=== PATIENT | female | born 1960 | race Caucasian/White ===

== ENCOUNTER 2022-11-19 10:29 | Outpatient (OUT) | payer BC, SELFPAY ==
--- NOTE | 2022-11-19 10:19 | ECG_ITS ---
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
== END 2022-11-19 10:30 ==
PROVIDERS: PCP Family Medicine
DX: Z95.5 Presence of coronary angioplasty implant and graft (principal)
CPT/HCPCS: 93005

== ENCOUNTER 2023-06-03 14:10 | Emergency (ER) | payer BC, SELFPAY ==
[2023-06-03] VITALS (18 sets, daily range): BP systolic 97–137; BP diastolic 67–90; PULSE 86–113; RESP 15–24; O2SAT 95–99; BMI 18.2
--- NOTE | 2023-06-03 14:20 | ECG_ITS ---
The 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
--- NOTE | 2023-06-03 14:32 | ED_ITS ---
Documented by User: RONY Oseguera 06/03/23 18:39 HPI - Chest Pain General Chief Complaint: Chest Pain Stated Complaint: CHEST PAIN Time Seen by Provider: 06/03/23 14:20 Source: patient and family Mode of arrival: walk-in Limitations: no limitations History of Present Illness HPI narrative: Patient is a 62-year-old female referred to this emergency department from her PCP office for chest pain, palpitations for the last several weeks. Patient states she has had intermittent discomfort in the chest although she denies any chest pain at this time. She states she does have symptoms of feeling her heart race. She has not had any fevers or cough or congestion. She has had nausea but no vomiting or abdominal pain. She has a history of coronary artery stents x 5, approximately 5 to 6 years ago. She no longer wants to see [facility] for cardiology and has an upcoming appointment with a physician at the [facility]. She has not had any recent stress test or heart catheterizations. She takes only a baby aspirin daily, she was taken off of anticoagulation after she had intracranial hemorrhage with surgery several years ago. Risk Factors Coronary artery disease risk factors: hypertension Related Data Home Medications Medication Instructions Recorded Confirmed alendronate 70 mg tablet 70 mg PO DAILY 06/03/23 06/03/23 atorvastatin 80 mg tablet 80 mg PO DAILY 06/03/23 06/03/23 cholecalciferol (vitamin D3) 125 125 mcg PO DAILY 06/03/23 06/03/23 mcg (5,000 unit) capsule citalopram 20 mg tablet 20 mg PO DAILY 06/03/23 06/03/23 lisinopril 20 mg tablet 20 mg PO DAILY 06/03/23 06/03/23 metoprolol succinate 25 mg 25 mg PO DAILY 06/03/23 06/03/23 tablet,extended release 24 hr Allergies Allergy/AdvReac Type Severity Reaction Status Date / Time No Known Drug Allergies Allergy Verified 06/03/23 14:47 Review of Systems ROS Constitutional Denies: fever or chills Ears, nose, mouth, and throat Denies: throat pain or nasal congestion Cardiovascular Reports: chest pain and palpitations Respiratory Reports: shortness of breath; Denies: cough Gastrointestinal Reports: nausea; Denies: abdominal pain or vomiting Genitourinary Denies: painful urination Musculoskeletal Denies: back pain Integumentary/Breast Denies: rash Neurological Denies: headache Endocrine Denies: excessive urination Allergic/Immunologic Denies: hives PFSH [facility] Medical History (Updated 06/03/23 @ 18:31 by RONY Oseguera) Brain bleed ?I61.9 - Nontraumatic intracerebral hemorrhage, unspecified (ICD-10) Emphysema lung ?J43.9 - Emphysema, unspecified (ICD-10) Hypertension ?I10 - Essential (primary) hypertension (ICD-10) Surgical History (Updated 06/03/23 @ 14:45 by Gus Escobar) History of heart artery stent ?Z95.5 - Presence of coronary angioplasty implant and graft (ICD-10) Exam Narrative Exam Narrative: Gen.: Awake, alert, in no distress Head: Normocephalic, atraumatic ENT: Moist mucous membranes Respiratory: No respiratory distress, lungs clear bilaterally Cardio: Tachycardia Extremities: Moves extremities equally, no pedal edema Psych: Normal mood and affect Neuro: No focal neuro deficit Skin: Warm, dry, intact Constitutional Vital Signs, click to edit/add: Last Vital Signs Pulse 87 06/03/23 15:52 Resp 22 06/03/23 15:52 BP 137/85 06/03/23 15:30 Pulse Ox 96 06/03/23 15:52 O2 Del Method Room Air 06/03/23 14:28 Course Vital Signs Vital signs: Vital Signs Pulse Oximetry 97 06/03/23 14:22 Pulse Rate 87 06/03/23 15:52 Respiratory Rate 22 06/03/23 15:52 Blood Pressure 137/85 06/03/23 15:30 Pulse Oximetry 96 06/03/23 15:52 Oxygen Delivery Method Room Air 06/03/23 14:28 MDM - Chest Pain MDM Narrative Medical decision making narrative: Lab studies including troponin are within normal limits, patient found to have an elevated D-dimer. She was treated with IV fluids with improvement of her heart rate. She has no complaints of chest pain in the ER. CT angio of the chest shows a small area of scarring in the left lower lung and the patient can follow-up as an outpatient for this, no other acute abnormalities noted. I discussed the case with Dr. Arevalo, he recommended a repeat troponin and the patient be discharged with a Holter monitor. Patient is very comfortable with treatment plan, she does not wish to be admitted. Repeat troponin is normal, Holter monitor placed and the patient is discharged home to follow-up with PCP. Return to the ER if symptoms change or worsen. Medical Records Data Attestation: I reviewed the patient's medical records. Lab Data Attestation: I reviewed the patient's lab results. Labs: Lab Results 06/03/23 06/03/23 Range/Units 14:38 17:48 WBC 7.8 (4.0-11.0) 10^3/uL RBC 4.97 (4.20-5.40) 10^6/uL Hgb 15.7 (12.0-16.0) g/dL Hct 46.9 (36.0-48.0) % MCV 94.4 (81.0-99.0) fL MCH 31.6 (26.7-34.0) pg MCHC 33.5 (29.9-35.2) g/dL RDW 12.4 (11.0-15.0) % Plt Count 150 (150-450) 10^3/uL MPV 11.9 (9.5-13.5) fL Neut % (Auto) 66.6 (43.0-75.0) % Lymph % (Auto) 23.5 (20.5-60.0) % Calloway % (Auto) 8.5 (1.7-12.0) % Eos % (Auto) 0.5 L (0.9-7.0) % Baso % (Auto) 0.5 (0.2-2.0) % Neut # (Auto) 5.2 (1.4-6.5) 10^3/uL Lymph # (Auto) 1.8 (1.2-3.8) 10^3/uL Calloway # (Auto) 0.7 (0.3-0.8) 10^3/uL Eos # (Auto) 0.0 (0.0-0.7) 10^3/uL Baso # (Auto) 0.0 (0.0-0.1) 10^3/uL Abs Immat Gran (auto) 0.03 (0.00-0.03) 10^3/uL Imm/Tot Granulo (auto) 0.4 (0.0-0.5) % PT 10.3 (9.0-11.6) sec INR 0.97 APTT 26.5 (22.3-36.2) sec D-Dimer 0.69 H* (<=0.59) mg/L FEU Sodium 132 L (136-145) mmol/L Potassium 4.5 (3.5-5.1) mmol/L Chloride 100 (98-107) mmol/L Carbon Dioxide 24.6 (21.0-32.0) mmol/L Anion Gap 11.9 BUN 14.0 (7.0-18.0) mg/dL Creatinine 0.89 (0.55-1.02) mg/dL Est GFR ( Amer) >60 (>=60) Est GFR (Non-Af Amer) >60 (>=60) BUN/Creatinine Ratio 15.7 Glucose 97 (74-106) mg/dL Calcium 9.3 (8.5-10.1) mg/dL Total Bilirubin 0.7 (0.2-1.0) mg/dL AST 27 (15-37) U/L ALT 34 (14-59) U/L Alkaline Phosphatase 71 (46-116) U/L Total Creatine Kinase 87 (26-192) U/L CK-MB (CK-2) <0.50 (<=3.60) ng/mL Troponin I High Sens 5.7 7.2 (4.0-51.3) pg/mL NT-Pro-B Natriuret Pep 50.0 (<=900.0) pg/mL Total Protein 7.2 (6.4-8.2) g/dL Albumin 3.5 (3.4-5.0) g/dL Globulin 3.7 g/dL Albumin/Globulin Ratio 0.9 TSH 1.933 (0.358-3.740) uIU/mL Imaging Data CT scan - chest: Attestation: I have reviewed the pertinent imaging results. Radiologist's impression: Procedure: CT angio chest CT angio chest, 06/03/2023 5:08 PM EST INDICATION: PE, elevated d dimer COMPARISON: Prior CT of the chest dated 08/15/2022 TECHNIQUE: Axial low-dose images of 1 millimeters are obtained from the thoracic outlet with contrast . 3-D MIP images were obtained. Dose reduction techniques were achieved by using automated exposure control and/or adjustment of mA and/or kV according to patient size and/or use of iterative reconstruction technique. FINDINGS: No endoluminal filling defect within the main pulmonary arteries, lobar and lobular branches is noted. There is no obvious right ventricle strain. 6 mm nodule versus focal atelectasis in the left lower lobe is noted. It is more prominent since prior CT of the chest. Bilateral apical scars are noted. There are significant centrilobular and paraseptal emphysematous changes. The central tracheobronchial tree is unremarkable. No mediastinal lymph node enlargement by size criteria is noted. No pleural or pericardial effusion is noted. The visualized portions of the solid abdominal organs are unremarkable. Bone: There is no suspicious osteolytic or osteoblastic lesion. IMPRESSION: No pulmonary embolus in the current study. Left lower lobe lung nodule/focal atelectasis more prominent since prior screening CT. This can be revaluated in the Screening CT in August 2023. Electronically authenticated by: LENO CARDENAS Date: 06/03/2023 17:55 ECG Data Attestation: I personally reviewed and interpreted this ECG as follows: (Sinus tachycardia with artifact noted, no acute ST elevation or reciprocal changes noted. EKG reviewed by attending physician) Heart Score History: Slightly/Non-Suspicious ECG: Normal Age: >45-<65 years Risk Factors: >3 Risk Factors/ HX of CAD:2 Troponin: <Normal Limit Total Heart Score Recommendations & Risks:: 3 Discharge Plan Discharge Chief Complaint: Chest Pain Clinical Impression: Heart palpitations Patient Disposition: Home, Self-Care Time of Disposition Decision: 18:31 Condition: Good Prescriptions / Home Meds: No Action alendronate 70 mg tablet 70 mg PO DAILY atorvastatin 80 mg tablet 80 mg PO DAILY cholecalciferol (vitamin D3) 125 mcg (5,000 unit) capsule 125 mcg PO DAILY citalopram 20 mg tablet 20 mg PO DAILY lisinopril 20 mg tablet 20 mg PO DAILY metoprolol succinate 25 mg tablet extended release 24 hr 25 mg PO DAILY Instructions: Heart Palpitations (ED) Stand Alone Forms: Portal Instructions Referrals: Enzo Arevalo MD [Primary Care Provider] - 1 week Discharge Date/Time: 06/03/23 18:50 Documented by User: Helder Bernal 06/07/23 21:29 HPI - Chest Pain General Chief Complaint: Chest Pain Stated Complaint: CHEST PAIN Time Seen by Provider: 06/03/23 14:20 Related Data Home Medications Medication Instructions Recorded Confirmed alendronate 70 mg tablet 70 mg PO DAILY 06/03/23 06/03/23 atorvastatin 80 mg tablet 80 mg PO DAILY 06/03/23 06/03/23 cholecalciferol (vitamin D3) 125 125 mcg PO DAILY 06/03/23 06/03/23 mcg (5,000 unit) capsule citalopram 20 mg tablet 20 mg PO DAILY 06/03/23 06/03/23 lisinopril 20 mg tablet 20 mg PO DAILY 06/03/23 06/03/23 metoprolol succinate 25 mg 25 mg PO DAILY 06/03/23 06/03/23 tablet,extended release 24 hr Allergies Allergy/AdvReac Type Severity Reaction Status Date / Time No Known Drug Allergies Allergy Verified 06/03/23 14:47 PFSH [facility] Medical History (Updated 06/03/23 @ 18:31 by RONY Oseguera) Brain bleed ?I61.9 - Nontraumatic intracerebral hemorrhage, unspecified (ICD-10) Emphysema lung ?J43.9 - Emphysema, unspecified (ICD-10) Hypertension ?I10 - Essential (primary) hypertension (ICD-10) Surgical History (Updated 06/03/23 @ 14:45 by Gus Escobar) History of heart artery stent ?Z95.5 - Presence of coronary angioplasty implant and graft (ICD-10) Exam Constitutional Vital Signs, click to edit/add: Last Vital Signs Pulse 87 06/03/23 15:52 Resp 22 06/03/23 15:52 BP 137/85 06/03/23 15:30 Pulse Ox 96 06/03/23 15:52 O2 Del Method Room Air 06/03/23 14:28 Course Vital Signs Vital signs: Vital Signs Pulse Oximetry 97 06/03/23 14:22 Pulse Rate 87 06/03/23 15:52 Respiratory Rate 22 06/03/23 15:52 Blood Pressure 137/85 06/03/23 15:30 Pulse Oximetry 96 06/03/23 15:52 Oxygen Delivery Method Room Air 06/03/23 14:28 MDM - Chest Pain Lab Data Labs: Lab Results 06/03/23 06/03/23 Range/Units 14:38 17:48 WBC 7.8 (4.0-11.0) 10^3/uL RBC 4.97 (4.20-5.40) 10^6/uL Hgb 15.7 (12.0-16.0) g/dL Hct 46.9 (36.0-48.0) % MCV 94.4 (81.0-99.0) fL MCH 31.6 (26.7-34.0) pg MCHC 33.5 (29.9-35.2) g/dL RDW 12.4 (11.0-15.0) % Plt Count 150 (150-450) 10^3/uL MPV 11.9 (9.5-13.5) fL Neut % (Auto) 66.6 (43.0-75.0) % Lymph % (Auto) 23.5 (20.5-60.0) % Calloway % (Auto) 8.5 (1.7-12.0) % Eos % (Auto) 0.5 L (0.9-7.0) % Baso % (Auto) 0.5 (0.2-2.0) % Neut # (Auto) 5.2 (1.4-6.5) 10^3/uL Lymph # (Auto) 1.8 (1.2-3.8) 10^3/uL Calloway # (Auto) 0.7 (0.3-0.8) 10^3/uL Eos # (Auto) 0.0 (0.0-0.7) 10^3/uL Baso # (Auto) 0.0 (0.0-0.1) 10^3/uL Abs Immat Gran (auto) 0.03 (0.00-0.03) 10^3/uL Imm/Tot Granulo (auto) 0.4 (0.0-0.5) % PT 10.3 (9.0-11.6) sec INR 0.97 APTT 26.5 (22.3-36.2) sec D-Dimer 0.69 H* (<=0.59) mg/L FEU Sodium 132 L (136-145) mmol/L Potassium 4.5 (3.5-5.1) mmol/L Chloride 100 (98-107) mmol/L Carbon Dioxide 24.6 (21.0-32.0) mmol/L Anion Gap 11.9 BUN 14.0 (7.0-18.0) mg/dL Creatinine 0.89 (0.55-1.02) mg/dL Est GFR ( Amer) >60 (>=60) Est GFR (Non-Af Amer) >60 (>=60) BUN/Creatinine Ratio 15.7 Glucose 97 (74-106) mg/dL Calcium 9.3 (8.5-10.1) mg/dL Total Bilirubin 0.7 (0.2-1.0) mg/dL AST 27 (15-37) U/L ALT 34 (14-59) U/L Alkaline Phosphatase 71 (46-116) U/L Total Creatine Kinase 87 (26-192) U/L CK-MB (CK-2) <0.50 (<=3.60) ng/mL Troponin I High Sens 5.7 7.2 (4.0-51.3) pg/mL NT-Pro-B Natriuret Pep 50.0 (<=900.0) pg/mL Total Protein 7.2 (6.4-8.2) g/dL Albumin 3.5 (3.4-5.0) g/dL Globulin 3.7 g/dL Albumin/Globulin Ratio 0.9 TSH 1.933 (0.358-3.740) uIU/mL Heart Score Total Heart Score Recommendations & Risks:: 3 Discharge Plan Discharge Chief Complaint: Chest Pain Clinical Impression: Heart palpitations Patient Disposition: Home, Self-Care Time of Disposition Decision: 18:31 Condition: Good Prescriptions / Home Meds: No Action alendronate 70 mg tablet 70 mg PO DAILY atorvastatin 80 mg tablet 80 mg PO DAILY cholecalciferol (vitamin D3) 125 mcg (5,000 unit) capsule 125 mcg PO DAILY citalopram 20 mg tablet 20 mg PO DAILY lisinopril 20 mg tablet 20 mg PO DAILY metoprolol succinate 25 mg tablet extended release 24 hr 25 mg PO DAILY Instructions: Heart Palpitations (ED) Stand Alone Forms: Portal Instructions Referrals: Hoy,Enzo, MD [Primary Care Provider] - 1 week Discharge Date/Time: 06/03/23 18:50
[2023-06-03 14:49] LABS: Basophils Percent Auto 0.5 % (0.2-2.0); Eosinophils Percent Auto 0.5 % (0.9-7.0); Hematocrit 46.9 % (36.0-48.0); Hemoglobin 15.7 g/dL (12.0-16.0); Immature Granulocytes Abs Auto 0.03 10^3/uL (0.00-0.03); Immature Granulocytes Pct Auto 0.4 % (0.0-0.5); Lymphocytes Absolute Auto 1.8 10^3/uL (1.2-3.8); Lymphocytes Percent Auto 23.5 % (20.5-60.0); Mean Corpuscular HGB Conc 33.5 g/dL (29.9-35.2); Mean Corpuscular Hemoglobin 31.6 pg (26.7-34.0); Mean Corpuscular Volume 94.4 fL (81.0-99.0); Mean Platelet Volume 11.9 fL (9.5-13.5); Monocytes Absolute Auto 0.7 10^3/uL (0.3-0.8); Monocytes Percent Auto 8.5 % (1.7-12.0); Neutrophils Absolute Auto 5.2 10^3/uL (1.4-6.5); Neutrophils Percent Auto 66.6 % (43.0-75.0); Platelet Count 150 10^3/uL (150-450); Red Blood Count 4.97 10^6/uL (4.20-5.40); Red Cell Distribution Width 12.4 % (11.0-15.0); White Blood Count 7.8 10^3/uL (4.0-11.0)
[2023-06-03] MEDS: 0.9 % SODIUM CHLORIDE 1,000 ML 1000 ML IV (14:56)
[2023-06-03 15:04] LABS: Anion Gap 11.9
[2023-06-03 15:05] LABS: INR 0.97; Partial Thromboplastin Time 26.5 sec (22.3-36.2); Prothrombin Time 10.3 sec (9.0-11.6)
[2023-06-03 15:12] LABS: Alanine Aminotransferase 34 U/L (14-59); Albumin Globulin Ratio 0.9; Albumin Level 3.5 g/dL (3.4-5.0); Alkaline Phosphatase 71 U/L (46-116); Aspartate Amino Transferase 27 U/L (15-37); BUN Creatinine Ratio 15.7; Bilirubin Total 0.7 mg/dL (0.2-1.0); Calcium 9.3 mg/dL (8.5-10.1); Carbon Dioxide 24.6 mmol/L (21.0-32.0); Chloride 100 mmol/L (98-107); Estimated GFR (African America >60 (>=60); Estimated GFR (Non-African Ame >60 (>=60); Globulin 3.7 g/dL; Glucose 97 mg/dL (74-106); Potassium 4.5 mmol/L (3.5-5.1); Sodium 132 mmol/L (136-145); Total Protein 7.2 g/dL (6.4-8.2); Troponin I High Sensitivity 5.7 pg/mL (4.0-51.3)
[2023-06-03 15:19] LABS: Thyroid Stimulating Hormone 1.933 uIU/mL (0.358-3.740)
[2023-06-03 16:08] LABS: D Dimer 0.69 mg/L FEU (<=0.59)
--- NOTE | 2023-06-03 16:08 | CT_ITS ---
The [address] [address] Patient Name: LOU MCGUIRE MRN: [id number] date: 1960 Sex: F Assigned Patient Location: ER Current Patient Location: ER Accession/Order Number: [id number] Exam Date: 06/03/2023 17:08 Report Date: 06/03/2023 17:55 At the request of: LEI QURESHI Procedure: CT angio chest CT angio chest, 06/03/2023 5:08 PM EST INDICATION: PE, elevated d dimer COMPARISON: Prior CT of the chest dated 08/15/2022 TECHNIQUE: Axial low-dose images of 1 millimeters are obtained from the thoracic outlet with contrast . 3-D MIP images were obtained. Dose reduction techniques were achieved by using automated exposure control and/or adjustment of mA and/or kV according to patient size and/or use of iterative reconstruction technique. FINDINGS: No endoluminal filling defect within the main pulmonary arteries, lobar and lobular branches is noted. There is no obvious right ventricle strain. 6 mm nodule versus focal atelectasis in the left lower lobe is noted. It is more prominent since prior CT of the chest. Bilateral apical scars are noted. There are significant centrilobular and paraseptal emphysematous changes. The central tracheobronchial tree is unremarkable. No mediastinal lymph node enlargement by size criteria is noted. No pleural or pericardial effusion is noted. The visualized portions of the solid abdominal organs are unremarkable. Bone: There is no suspicious osteolytic or osteoblastic lesion. CT/CT angio chest IMPRESSION: No pulmonary embolus in the current study. Left lower lobe lung nodule/focal atelectasis more prominent since prior screening CT. This can be revaluated in the Screening CT in August 2023. Electronically authenticated by: LENO CARDENAS Date: 06/03/2023 17:55
[2023-06-03 18:18] LABS: Creatine Kinase 87 U/L (26-192); Creatine Kinase MB <0.50 ng/mL (<=3.60); Troponin I High Sensitivity 7.2 pg/mL (4.0-51.3)
--- NOTE | 2023-06-03 18:30 | CA_ITS ---
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1960 Requested By: RYAN LEMOS Order Number: [id number] Reading MD: JEOVANY MARIN Interpretive Statements Predominant rhythm is sinus with averate rate of 87 bpm Tachycardia - max rate of 128 bpm (sinus tachycardia) - longest episode of 29min 19sec with rates between 109-127 bpm Bradycardia - none Ventricular ectopy - 781 total (<1%) - 729 PVC - 18 couplets - 9 bigeminy - 25 trigeminy Patient triggered events: none Impression: Predominant rhythm is sinus with averate rate of 87 bpm Fastest rate of 128 bpm (sinus tachycardia) mininum rate of 62 bpm 729 PVC, 18 couplets, 9 bigeminy, 25 trigeminy No atrial fibrlllation No pauses or blocks Electronically Signed On 06-21-2023 9:41:09 EST by JEOVANY MARIN
== END 2023-06-03 18:50 | disposition home or self-care (01) ==
PROVIDERS: Physician Assistant; Emergency Provider Emergency Medicine; PCP Family Medicine
DX: R00.2 Palpitations (principal); R07.9 Chest pain, unspecified; Z95.5 Presence of coronary angioplasty implant and graft; Z79.82 Long term (current) use of aspirin; I10 Essential (primary) hypertension; R06.02 Shortness of breath; J43.9 Emphysema, unspecified; R79.89 Other specified abnormal findings of blood chemistry; Z86.79 Personal history of other diseases of the circulatory system
CPT/HCPCS: 36415; 71275; 80053; 82550; 82553; 83880; 84443; 84484; 85025; 85378; 85610; 85730; 93005; 93242; 99285; Q9967

== ENCOUNTER 2023-10-07 07:55 | Outpatient (OUT) | payer BC, SELFPAY ==
--- NOTE | 2023-10-07 07:57 | CT_ITS ---
[address] [address] Patient Name: LOU MCGUIRE MRN: [id number] date: 1960 Sex: F Assigned Patient Location: CT Current Patient Location: CT Accession/Order Number: [id number] Exam Date: 10/07/2023 08:05 Report Date: 10/07/2023 12:14 At the request of: RYAN LEMOS Procedure: CT chest wo con EXAMINATION: CT chest wo con HISTORY: Solitary Pulmonary Nodule R91.1 COMPARISON: 06/03/2023 TECHNIQUE: Multi-planar CT images were created with IV contrast. Axial, Coronal, and Sagittal images. Dose reduction techniques were achieved by using automated exposure control and/or adjustment of mA and/or kV according to patient size and/or use of iterative reconstruction technique. FINDINGS: LUNGS: Moderate diffuse bilateral centrilobular emphysema. Scattered punctate pulmonary nodules, subcentimeter in size. Slight increase in linear opacity in the posterior basilar segment of the left lower lobe, an area of atelectasis or scar is favored. PLEURA: No mass, effusion, or pneumothorax. VASCULATURE: No abnormality. LIVIA: Calcified left hilar lymph nodes, prior granulomatous process MEDIASTINUM: No mass or adenopathy. CARDIAC: No enlargement or pericardial effusion. Moderate coronary atherosclerosis no aortic aneurysm. Moderate ossific atherosclerosis AORTA: No aortic aneurysm CHEST WALL: No mass or axillary adenopathy. BONES: No bone lesion or fracture. LIMITED ABDOMEN: No suspicious findings. Limited images of the upper abdomen. OTHER: Negative. CT/CT chest wo con IMPRESSION: Scattered subcentimeter pulmonary nodules Slight increase in now linear opacity in the left lower lobe, an area of atelectasis/scar is favored Electronically authenticated by: MEERA HODGE Date: 10/07/2023 12:14
--- OUTSIDE RECORDS SUMMARY | 2023-10-07 08:02 | XMS_ITS | CCD ---
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 Role Phone KEL BUENO Unavailable Unavailable RYAN AREVALO Unavailable Unavailable ALJANDALI, MHD HUSSAM Unavailable Unavailabl e KARIM, RACHELE Unavailable Unavailable MS Unavailable Unavailable UNKNOWN, PROVIDER Unavailable Unavailable MEERA ROJAS Consulting Unavailable RYAN AREVALO Primary Care Unavailable AHMARBELLA, KARENED S Admitting Unavailable AHMED, MOHAMMED S Attending Unavailable HOY ., DR DAVIS Consulting Unavailable HOY ., DR DAVIS Primary Care Unavailable HOY ., DR DAVIS Admitting Unavailable HOY ., DR DAVIS Attending Unavailable HOY ., DR DAVIS Consulting Unavailable HOY ., DR DAVIS Primary Care Unavailable HOY ., DR DAVIS Admitting Unavailable HOY ., DR DAVIS Attending Unavailable HOY ., DR DAVIS Primary Care Unavailable HOY ., DR DAVIS Admitting Unavailable HOY ., DR DAVIS Attending Unavailable HOY ., DR DAVIS Consulting Unavailable [place], DR MEERA Maria Consulting Unavailable BILLY, DR CORINA Nichole Consulting Unavailable Ryan Arevalo MD Primary Care Provider [phone] RYAN AREVALO Primary Care Unavailable ELVIRA SCHERER Admitting Unavailable ELVIRA SCHERER Attending Unavailable RYAN AREVALO Primary Care Unavailable ELVIRA SCHERER Admitting Unavailable ELVIRA SCHERER Attending Unavailable Medications Current Medications Medication Drug Class(es) Dates Sig (Normalized) Sig (Original) alendronic acid 70 mg oral tablet (2 sources) Bisphosphonate alendronate (FOSAMAX) 70 MG tablet Take 1 tablet by mouth every 7 days 0 Active aspirin 81 mg chewable tablet (2 sources) Platelet Aggregation Inhibitor, Nonsteroidal Anti-inflammatory Drug take 1 tablet by mouth once daily aspirin 81 MG chewable tablet Take 1 tablet by mouth daily 0 Active atorvastatin 80 mg oral tablet (2 sources) HMG-CoA Reductase Inhibitor take 1 tablet by mouth once daily atorvastatin (LIPITOR) 80 MG tablet Take 1 tablet by mouth daily 0 Active calcium chloride 0.0014 meq/ml / potassium chloride 0.004 meq/ml / sodium chloride 0.103 meq/ml / sodium lactate 0.028 meq/ml injectable solution (2 sources) Start: 01-19-2023 lactated ringers IV soln infusion Start: 12-01-2022 lactated ringe rs IV soln infusion citalopram 20 mg oral tablet (2 sources) Serotonin Reuptake Inhibitor take 1 tablet by mouth once daily citalopram (CELEXA) 20 MG tablet Take 1 tablet by mouth daily 0 Active 30 actuat fluticasone furoate 0.1 mg/actuat / umeclidinium 0.0625 mg/actuat / vilanterol 0.025 mg/actuat dry powder inhaler (2 sources) Anticholinergic, Corticosteroid, beta2-Adrenergic Agonist take 1 puff(s) by inhalation once daily fluticasone-umeclid in-vilant (TRELEGY ELLIPTA) 100-62.5-25 MCG/ACT AEPB inhaler Inhale 1 puff into the lungs daily 0 Active 24 hr hydroCHLOROthiazide 12.5 mg / metoprolol succinate 25 mg extended release oral tablet (2 sources) Thiazide Diuretic, beta-Adrenergic Tone take 25 mg by mouth once daily Metoprolol-HCTZ ER 25-12.5 MG TB24 Take 25 mg by mouth daily 0 Active levETIRAcetam 500 mg oral tablet (1 source) Start: 2018 take 1 tablet by mouth twice daily levETIRAcetam (KEPPRA) 500 MG tablet Take 1 tablet by mouth 2 times daily for 8 doses 8 tablet 0 10/26/2018 Active lisinopril 10 mg oral tablet (2 sources) Angiotensin Converting Enzyme Inhibitor Start: 2018 take 1 tablet by mouth once daily lisinopril (PRINIVIL;ZESTRIL) 10 MG tablet Take 1 tablet by mouth daily 30 tablet 3 10/27/2018 Active Multiple Vitamins-Minerals (VITAMIN D3 COMPLETE PO) (2 sources) Multiple Vitamins-Minerals (VITAMIN D3 COMPLETE PO) Take by mouth 0 Active Multiple Vitamin s-Minerals (VITAMIN D3 COMPLETE PO) Take by mouth 0 Suspended phenylephrine hydrochloride 25 mg/ml ophthalmic solution (2 sources) alpha-1 Adrenergic Agonist Start: 01-19-2023 phenylephrine (MYDFRIN) 2.5 % ophthalmic solution 1 drop Start: 12-01-2022 phenylephrine (MYDFRIN) 2.5 % ophthalmic solution 1 drop proparacaine hydrochloride 5 mg/ml ophthalmic solution (2 sources) Local Anesthetic Start: 01-19-2023 proparacaine (ALCAINE) 0.5 % ophthalmic solution 1 drop Start: 12-01-2022 proparacaine ( ALCAINE) 0.5 % ophthalmic solution 1 drop 1000 ml sodium chloride 9 mg/ml injection (14 sources) Start: 01-19-2023 IntraVENous, a t 5-250 mL/hr, PRN, if patient receiving piggyback infusions and maintenance fluids are not ordered OR KVO fluids to protect IV site / prevent frequent line interruptions/ long duration, Starting on Thu01/19/23 at 1059 For piggyback infusion, administer at same rate as piggyback for a total of 25 mL. Enter 25 mL into dose field and piggyback rate into rate field of order. If piggyback is infusing at a rate less than 100 mL/hr, enter 25 mL into dose field and 100 mL/hr into rate field of order. For KVO fluids, enter rate of 20 mL/hr or less into rate field of order. Post-op Start: 01-19-2023 take 1 dose intraven ously twice daily 5-40 mL, IntraVENous, EVERY 12 HOURS SCHEDULED (2 times per day), First dose on Thu01/19/23 at 1115, Until Discontinued For Line Patency: Peripheral IV = 5 mL; Midline or Central Line = 10 mL/lumen. If following IV push medication, administer flush at same rate as the IV push. Flush volume is determined by type of infusion therapy being given. For non-viscous solutions use: Peripheral IV = 5 mL Midline or Central Line = 10 mL/lumen For viscous solutions (i.e. blood components, parenteral nutrition, contrast media, or after obtaining blood sample) use: Peripheral IV = 10 mL Midline or Central Line = 20 mL/lumen Post-op Start: 01-19-2023 take 5-40 mL intrave nously once as needed 5-40 mL, IntraVENous, PRN, Starting on Thu01/19/23 at 1059, Until Discontinued, Line Care, After every IV line use For Line Patency: Peripheral IV = 5 mL; Midline or Central Line = 10 mL/lumen. If following IV push medication, administer flush at same rate as the IV push. Flush volume is determined by type of infusion therapy being given. For non-viscous solutions use: Peripheral IV = 5 mL Midline or Central Line = 10 mL/lumen For viscous solutions (i.e. blood components, parenteral nutrition, contrast media, or after obtaining blood sample) use: Peripheral IV = 10 mL Midline or Central Line = 20 mL/lumen Post-op Start: 01-19-2023 0.9 % sodium c hloride infusion Start: 01-19-2023 sodium chlorid e flush 0.9 % injection 5-40 mL Start: 12-01-2022 IntraVENous, a t 5-250 mL/hr, PRN, if patient receiving piggyback infusions and maintenance fluids are not ordered OR KVO fluids to protect IV site / prevent frequent line interruptions/ long duration, Starting on Thu12/01/22 at 0940 For piggyback infusion, administer at same rate as piggyback for a total of 25 mL. Enter 25 mL into dose field and piggyback rate into rate field of order. If piggyback is infusing at a rate less than 100 mL/hr, enter 25 mL into dose field and 100 mL/hr into rate field of order. For KVO fluids, enter rate of 20 mL/hr or less into rate field of order. Post-op Start: 12-01-2022 take 1 dose intraven ously twice daily 5-40 mL, IntraVENous, EVERY 12 HOURS SCHEDULED (2 times per day), First dose on Thu12/01/22 at 1000, Until Discontinued For Line Patency: Peripheral IV = 5 mL; Midline or Central Line = 10 mL/lumen. If following IV push medication, administer flush at same rate as the IV push. Flush volume is determined by type of infusion therapy being given. For non-viscous solutions use: Peripheral IV = 5 mL Midline or Central Line = 10 mL/lumen For viscous solutions (i.e. blood components, parenteral nutrition, contrast media, or after obtaining blood sample) use: Peripheral IV = 10 mL Midline or Central Line = 20 mL/lumen Post-op Start: 12-01-2022 take 5-40 mL intrave nously once as needed 5-40 mL, IntraVENous, PRN, Starting on Thu12/01/22 at 0940, Until Discontinued, Line Care, After every IV line use For Line Patency: Peripheral IV = 5 mL; Midline or Central Line = 10 mL/lumen. If following IV push medication, administer flush at same rate as the IV push. Flush volume is determined by type of infusion therapy being given. For non-viscous solutions use: Peripheral IV = 5 mL Midline or Central Line = 10 mL/lumen For viscous solutions (i.e. blood components, parenteral nutrition, contrast media, or after obtaining blood sample) use: Peripheral IV = 10 mL Midline or Central Line = 20 mL/lumen Post-op Start: 12-01-2022 0.9 % sodium c hloride infusion Start: 12-01-2022 sodium chlorid e flush 0.9 % injection 5-40 mL tetracaine hydrochloride 5 mg/ml ophthalmic solution (2 sources) Suzie Local Anesthetic Start: 01-19-2023 tetracaine (TETRAVISC) 0.5 % ophthalmic solution 1 drop Start: 12-01-2022 tetracaine (TE TRAVISC) 0.5 % ophthalmic solution 1 drop tropicamide 10 mg/ml ophthalmic solution (2 sources) Anticholinergic Start: 01-19-2023 tropicamide (M YDRIACYL) 1 % ophthalmic solution 1 drop Start: 12-01-2022 tropicamide (M YDRIACYL) 1 % ophthalmic solution 1 drop Completed/Discontinued Medications Medication Drug Class(es) Dates Sig (Normalized) Sig (Original) docusate sodium 50 mg / sennosides, intermediate 8.6 mg oral tablet (1 source) Start: 10-26-2018 End: 11-17-2022 take 1 tablet by mouth twice daily as needed for constipation sennosides-docusate sodium (SENOKOT-S) 8.6-50 MG tablet Take 1 tablet by mouth 2 times daily as needed for Constipation 30 tablet 0 10/26/2018 11/17/2022 Discontinued (LIST CLEANUP) Problems Active Problems Problem Classification Problem Date Documented Date Episodic/Chronic Acute cerebrovascular disease (2 sources) Hematoma of subdural space of neuraxis; Translations: [Subdural hematoma] Onset: 10-22-2018 10-23-2018 Chronic Cataract (9 sources) Age-related nuclear cataract of left eye; Translations: [Age-related nuclear cataract, left eye] Onset: 11-30-2022 Resolved: 01-19-2023 Chronic Coronary atherosclerosis and other heart disease (1 source) Atherosclerotic heart disease of [place] coronary artery with unstable angina pectoris; Translations: [ATHSCL HEART DISEASE OF [place] COR ART W UNSTABLE ANG PCTRS] Onset: 06-05-2017 Chronic Headache, including migraine (1 source) Migraine, unspecified, not intractable, without status migrainosus; Translations: [MIGRAINE, UNSP, NOT INTRACTABLE, WITHOUT STATUS MIGRAINOSUS] Onset: 06-05-2017 Chronic Menopausal disorders (1 source) Other primary ovarian failure; Translations: [OTHER PRIMARY OVARIAN FAILURE] Onset: 08-19-2022 Chronic Other bone disease and musculoskeletal deformities (1 source) Other specified disorders of bone density and structure, left thigh; Translations: [OTH D/O BONE DEN STRUCT LT THIGH] Onset: 08-19-2022 Episodic Other screening for suspected conditions (not mental disorders or infectious disease) (1 source) Encounter for screening mammogram for malignant neoplasm of breast; Translations: [ENC SCR MAMMO MALIG NEOPLASM BREAST] Onset: 08-19-2022 Episodic Spondylosis; intervertebral disc disorders; other back problems (1 source) Other intervertebral disc degeneration, lumbar region; Translations: [OTH IV DISC DEGEN LUMBAR REGION] Onset: 08-19-2022 Chronic Substance-related disorders (2 sources) Nicotine dependence, cigarettes, uncomplicated; Translations: [NICOTINE DEPENDENCE, CIGARETTES, UNCOMPLICATED] Onset: 06-05-2017 Chronic Thyroid disorders (4 sources) Hypothyroidism, unspecified; Translations: [HYPOTHYROIDISM UNSPECIFIED] Onset: 09-09-2022 Chronic Unclassified (2 sources) Unknown / UNK(Unknown) Onset: 06-05-2017 Unclassified (1 source) LOW BACK PAIN, UNSPECIFIED; Translations: [LOW BACK PAIN, UNSPECIFIED] Onset: 08-19-2022 Past or Other Problems Problem Classification Problem Date Documented Da te Episodic/Chronic Nonspecific chest pain (2 sources) Chest pain, unspecified; Translations: [CHEST PAIN, UNSPECIFIED] Onset: 06-05-2017 Episodic Results Test Name Value Interpretation Reference Range Facility CNCOon 06-02-2023 CNCO Letter Text Normal [facility] CNPNon 06-02-2023 CNPN Telephone (CARDMN) DACIA FINLEY ([id number]) 1960 F Date Time Provider Department 06/02/23 CELIA MATOS ([facility]) CARDMN During your visit today, we recorded the following information about you: Celia Lilly 06/02/2023 1:06 PM Signed web appts: 1st call. scheduled for 06/[address] Capone. Mailed reminder. Case closed. Allergies As of Date: 06/02/2023 (Not on File) Date Reviewed: Never Reviewed Reason for Visit: Appointment [[id number]] Problem List As Of Date: 06/02/2023 (None) Encounter Status:Closed by CELIA LILLY on 06/02/23 Normal [facility] FREE T3on 09-09-2022 FREE T3 3.53 pg/mlL Normal 2.18-3.98 [facility] Comment on above: Performed By: #### T 4, FT3, TSH #### [facility] [address] [address] [address] Guevara Abraham T4on 09-09-2022 T4 [Mass/Vol] 10.20 ug/dL Normal 4.80-13.90 [facility] Comment on above: Performed By: #### T 4, FT3, TSH #### [facility] [address] [address] [address] Guevara Abraham TSHon 09-09-2022 TSH 7.509 uIU/mL Critically high 0.358-3.74 0 [facility] Comment on above: Performed By: #### T 4, FT3, TSH #### [facility] [address] [address] [address] Guevara Abraham OCC BLD IMMUNO SCREENon 08-06 OCCULT BLOOD Negative Normal NEGATIVE [facility] Comment on above: Performed By: #### A NAIFA #### [facility] [address] [place] [address] Dr. Guevara Abraham CODI by IFAon 08-19-2022 Antinuclear Antibodies, IFA Negative Normal [facility] Comment on above: Result Comment: Nega tive <1:80 Borderline 1:80 Positive >1:80 ICAP nomenclature: AC-0 For more information about Hep-2 cell patterns use ANApatterns.org, the official website for the International Consensus on Antinuclear Antibody (CODI) Patterns (ICAP). Performed By: #### A NAIFA #### [facility] [address] [place] [address] Dr. Guevara Abraham ANTISTREPTOLYSIN O AB (ASO)o n 08-16-2022 Antistreptolysin O Ab 248.1 IU/mL Critically high 0.0-200.0 [facility] Comment on above: Performed By: #### A SOAB #### [facility] [address] [place] [address] Dr. Guevara Abraham C-REACTIVE PROTEINS (HS)on 0 08-16-2022 C-Reactive Protein, Cardiac 0.32 mg/L Normal 0.00-3.00 [facility] Comment on above: Result Comment: Rela tive Risk for Future Cardiovascular Event Low <1.00 Average 1.00 - 3.00 High >3.00 Performed By: #### C RPHS #### [facility] [address] [address] [address] Guevara Abraham INSULINon 08-16-2022 Insulin 11.3 uIU/mL Normal 2.6-24.9 [facility] Comment on above: Performed By: #### I NSULIN ####[facility] [address] [place], [place] [address]Dr. Guevara Abraham RHEUMATOID FACTORon 08-17-19 RA Latex Turbid. <10.0 Normal <14.0 [facility] Comment on above: Performed By: #### R F #### [facility] [address] [place] [address] Dr. Guevara Abraham CBC AUTO DIFFon 08-15-2022 BASO # 0.1 103/ul Normal 0.0-0.1 [facility] Comment on above: Performed By: #### C BC ####[facility] [address] [place], [place] [address]DrCain Abraham Basophils/100 WBC (Bld) 0.6 % Normal 0.2-2.0 [facility] Comment on above: Performed By: #### C BC ####[facility] [address] [place], [place] [address]DrCain Abraham EO # 0.2 103/ul Normal 0.0-0.7 [facility] Comment on above: Performed By: #### C BC ####[facility] [address] [place], [place] [address]Dr. Guevara Abraham Eosinophils/100 WBC (Bld) 1.9 % Normal 0.9-7.0 [facility] Comment on above: Performed By: #### C BC ####[facility] [address] [place], [place] [address]DrCain Abraham Erythrocyte distribution width (RBC) [Ratio] 12.8 % Normal 11.0-15.0 [facility] Comment on above: Performed By: #### C BC ####[facility] [address] [place], [place] [address]Dr. Gerbermeño Abraham Hematocrit (Bld) [Volume fraction] 43.1 % Normal 36.0-48.0 [facility] Comment on above: Performed By: #### C BC ####[facility] [address] [address]Dr. Guevara Abraham Hemoglobin (Bld) [Mass/Vol] 14.5 g/dL Normal 12.0-16.0 [facility] Comment on above: Performed By: #### C BC ####[facility] [address] [place], [place] [address]Dr. Guevara Abraham IG # 0.03 10e3/ul Normal 0.00-0.03 [facility] Comment on above: Performed By: #### C BC ####[facility] [address] [place], [place] [address]Dr. Guevara Abraham IG % 0.3 % Normal 0.0-0.5 [facility] Comment on above: Performed By: #### C BC ####[facility] [address] [place], [place] [address]Dr. Guevara Abraham LYMPH # 3.3 103/ul Normal 1.2-3.8 [facility] Comment on above: Performed By: #### C BC ####[facility] [address] [place], [place] [address]Dr. Guevara Abraham Lymphocytes/100 WBC (Bld) 34.2 % Normal 20.5-60.0 [facility] Comment on above: Performed By: #### C BC ####[facility] [address] [place], [place] [address]Dr. Guevara Abraham MANUAL DIFF REQ NO Normal [facility] Comment on above: Performed By: #### C BC ####[facility] [address] [place], [place] [address]Dr. Guevara Abraham MCH (RBC) [Entitic mass] 31.4 pg Normal 26.7-34.0 [facility] Comment on above: Performed By: #### C BC ####[facility] [address] [place], [place] [address]Dr. Guevara Abraham MCHC (RBC) [Mass/Vol] 33.6 g/dL Normal 29.9-35.2 [facility] Comment on above: Performed By: #### C BC ####[facility] [address] [address]Dr. Guevara Abraham MCV (RBC) [Entitic vol] 93.3 fL Normal 81.0-99.0 [facility] Comment on above: Performed By: #### C BC ####[facility] [address] [place], [place] [address]Dr. Zabrinameño Jarad MONO # 0.7 103/ul Normal 0.3-0.8 [facility] Comment on above: Performed By: #### C BC ####[facility] [address] [place], [place] [address]Dr. Guevara Abraham Monocytes/100 WBC (Bld) 7.3 % Normal 1.7-12.0 [facility] Comment on above: Performed By: #### C BC ####[facility] [address] [place], [place] [address]Dr. Guevara Abraham NEUT # 5.3 103/ul Normal 1.4-6.5 [facility] Comment on above: Performed By: #### C BC ####[facility] [address] [place], [place] [address]Dr. Guevara Abraham Neutrophils/100 WBC (Bld) 55.7 % Normal 43.0-75.0 [facility] Comment on above: Performed By: #### C BC ####[facility] [address] [place], [place] [address]Dr. Guevara Abraham Platelet mean volume (Bld) [Entitic vol] 11.5 fL Normal 9.5-13.5 [facility] Comment on above: Performed By: #### C BC ####[facility] [address] [place], [place] [address]Dr. Guevara Abraham PLT 211 103/ul Normal 150-450 [facility] Comment on above: Performed By: #### C BC ####[facility] [address] [place], [place] [address]Dr. Guevara Abraham RBC 4.62 106/ul Normal 4.20-5.40 [facility] Comment on above: Performed By: #### C BC ####[facility] [address] [place], [place] [address]Ap. Guevara Abraham WBC 9.5 103/ul Normal 4.0-11.0 [facility] Comment on above: Performed By: #### C BC ####[facility] [address] [place], [place] [address]Za. Guevara Abraham CRPon 08-15-2022 CRP [Mass/Vol] mg/L Normal <=1.0 [facility] Comment on above: Performed By: #### C RP, T7, CMP, URIC, LIPID, TSH ####[facility] [address] [place], [place] [address]Oz. [address] CT LUNG CANCER SCREENINGon 0 08-15-2022 CT LUNG CANCER SCREENING EXAMINATION: CT LUNG CANCER SCREENING HISTORY: Tobacco dependence caused by cigarettes COMPARISON: No relevant comparison available. TECHNIQUE: Axial, Coronal, and Sagittal images were created without the administration of IV contrast material. Dose reduction techniques were achieved by using automated exposure control and/or adjustment of mA and/or kV according to patient size and/or use of iterative reconstruction technique. FINDINGS: LUNGS: Mild emphysematous changes. No suspicious nodules. PLEURA: No mass, effusion, or pneumothorax. VASCULATURE: No abnormality. LIVIA: Calcified lymph nodes. MEDIASTINUM: No mass or pathologic adenopathy. CARDIAC: Atherosclerotic coronary artery disease. Trace amount of pericardial fluid. AORTA: No aneurysm or dissection. CHEST WALL: No mass or axillary adenopathy BONES: No bone lesion or fracture. LIMITED ABDOMEN: No suspicious findings. Limited images of the upper abdomen. OTHER: Negative. IMPRESSION: 1. Lung-RADS Category 1 Negative. No nodules and definitely benign nodules. Continue annual screening with LDCT in 12 months. 2. Mild emphysematous changes. Electronically authenticated by: CORINA CERVANTES Date: 2022-08-15 09:25 Normal [facility] FREE THYROXINE INDEX T7on FTI 3.00 Normal 1.30-4.50 [facility] Comment on above: Performed By: #### C RP, T7, CMP, URIC, LIPID, TSH ####[facility] [address] [id number]. Guevara Abraham T3U 33.0 % Normal 30.0-39.0 [facility] Comment on above: Performed By: #### C RP, T7, CMP, URIC, LIPID, TSH ####[facility] [address] [id number]. Guevara Abraham T4 [Mass/Vol] 9.10 ug/dL Normal 4.80-13.90 [facility] Comment on above: Performed By: #### C RP, T7, CMP, URIC, LIPID, TSH ####[facility] [address] [address]DrCain Abraham GLYCOHEMOGLOBIN A1Con 2022 ADA RECOMMENDATION SEE BELOW Normal [facility] Comment on above: Result Comment: ADA RECOMMENDED LIMIT 4.0 - 6.0 ADA THERAPEUTIC TARGET < 7.0 ACTION SUGGESTED > 7.0 Performed By: #### A 1C ####[facility] [address] [address]Dr. Guevara Abraham Glucose [Mass/Vol] 120 mg/dL Normal [facility] Comment on above: Performed By: #### A 1C ####[facility] [address] [address]DrCain Abraham HbA1c (Bld) [Mass fraction] 5.8 % Normal 4.5-6.2 [facility] Comment on above: Performed By: #### A 1C ####[facility] [address] [address]Dr. Guevara Abraham IRONon 08-15-2022 Iron [Mass/Vol] 124.0 ug/dL Normal 50.0-170.0 [facility] Comment on above: Performed By: #### I MIAH #### [facility] [address] [address] [address] Guevara Abraham LIPID PROFILEon 08-15-2022 CHOL-HDL RATIO NORM SEE BELOW Normal [facility] Comment on above: Result Comment: 3.3 - 4.4 LOW RISK 4.4 - 7.1 AVERAGE RISK 7.1 - 11.0 MODERATE RISK >11.0 HIGH RISK Performed By: #### C RP, T7, CMP, URIC, LIPID, TSH ####[facility] [address] [address]Dr. Guevara Abraham Cholesterol [Mass/Vol] 132 mg/dL Normal <=200 [facility] Comment on above: Performed By: #### C RP, T7, CMP, URIC, LIPID, TSH ####[facility] [address] [address]Dr. Guevaar Abraham Cholesterol in HDL [Mass/Vol] 44 mg/dL Normal 40-60 [facility] Comment on above: Performed By: #### C RP, T7, CMP, URIC, LIPID, TSH ####[facility] [address] [address]Dr. Guevara Abraham Cholesterol in LDL [Mass/Vol] 70.8 mg/dL Normal [facility] Comment on above: Performed By: #### C RP, T7, CMP, URIC, LIPID, TSH ####[facility] [address] [address]Dr. Guevara Abraham Cholesterol.total /Cholesterol in HDL [Mass ratio] 3.0 {ratio} Normal [facility] Comment on above: Performed By: #### C RP, T7, CMP, URIC, LIPID, TSH ####[facility] [address] [address]Dr. Guevara Abraham HDL NORMAL > or = 60 mg/dl - LO W CARDIOVASCULAR RISK <40 mg/dl - HIGH CARDIOVASCULAR RISK Normal [facility] Comment on above: Performed By: #### C RP, T7, CMP, URIC, LIPID, TSH ####[facility] [address] [address]Dr. Guevara Abraham LDL CALC NORMAL SEE BELOW Normal [facility] Comment on above: Result Comment: <100 mg/dl OPTIMAL 100 - 129 mg/dl NEAR OR ABOVE OPTIMAL 130 - 159 mg/dl BORDERLINE HIGH 160 - 189 mg/dl HIGH >190 mg/dl VERY HIGH Performed By: #### C RP, T7, CMP, URIC, LIPID, TSH ####[facility] [address] [place], [place] [address]Ip. Guevara Abraham Triglyceride [Mass/Vol] 86 mg/dL Normal <=150 [facility] Comment on above: Performed By: #### C RP, T7, CMP, URIC, LIPID, TSH ####[facility] [address] [place], [place] [address]Pi. Guevara Abraham VLDL CALC 17.2 mg/dL Normal [facility] Comment on above: Performed By: #### C RP, T7, CMP, URIC, LIPID, TSH ####[facility] [address] [place], [place] [address]Pk. Guevara Abraham MG MAMM SCREEN 3D GRICEL CADon 08-15-2022 MG MAMM SCREEN 3D GRICEL CAD Patient: DACIA FINLEY Exam Date: 08/15/2022 : 1960 Gender:F Ordering : DR RYAN AREVALO . Admission #: [id number] Family : Order #: [id number] CLICK HERE TO VIEW EXAM RADIOLOGY REPORT PROCEDURE: MAMMOGRAM SCREENING 3D BILATERAL CAD COMPARISON: MG MAMM GRICEL SCRN W CAD DIG, 07/04/2015. INDICATIONS: Screening mammography Calculator Name NCI Breast Cancer Risk Assessment Tool 5 Year Breast Cancer Risk Not Reported. Lifetime Breast Cancer Risk Not Reported. Personal Breast Cancer No Personal Ovarian Cancer No Treatments None Family Cancers None LOCATION: [facility] BREAST COMPOSITION: Extremely dense, which lowers the sensitivity of mammography. FINDINGS: DIAGNOSTIC CATEGORY 1--NEGATIVE. NO CHANGE FROM COMPARISON ASSESSMENT. Scattered benign-appearing calcifications are present. RIGHT BREAST: No significant suspicious finding. LEFT BREAST: No significant suspicious finding. RECOMMENDATIONS: ROUTINE MAMMOGRAM AND CLINICAL EVALUATION IN 12 MONTHS. PLEASE NOTE: A NORMAL MAMMOGRAM DOES NOT EXCLUDE THE POSSIBILITY OF BREAST CANCER. A CLINICALLY SUSPICIOUS PALPABLE LUMP SHOULD BE BIOPSIED. Dictated by: Meera Hodge MD on 08/15/2022 at 09:47 Approved by: Meera Hodge MD on 08/15/2022 at 09:49 Normal [facility] PROF 14(COMP METB)on 023 Albumin [Mass/Vol] 3.9 g/dL Normal 3.4-5.0 [facility] Comment on above: Performed By: #### C RP, T7, CMP, URIC, LIPID, TSH ####[facility] [address] [place] [address]Dr. Guevara Abraham Albumin/Globulin [Mass ratio] 1.2 {ratio} Normal [facility] Comment on above: Performed By: #### C RP, T7, CMP, URIC, LIPID, TSH ####[facility] [address] [place] [address]Dr. Guevara Abraham ALP [Catalytic activity/Vol] 66 U/L Normal 46-116 [facility] Comment on above: Performed By: #### C RP, T7, CMP, URIC, LIPID, TSH ####[facility] [address] [place] [address]Dr. Guevara Abraham ALT [Catalytic activity/Vol] 22 U/L Normal 14-59 [facility] Comment on above: Performed By: #### C RP, T7, CMP, URIC, LIPID, TSH ####[facility] [address] [place] [address]Dr. Guevara Abraham Anion gap [Moles/Vol] 12.9 mmol/L Normal [facility] Comment on above: Performed By: #### C RP, T7, CMP, URIC, LIPID, TSH ####[facility] [address] [place] [address]Dr. Guevara Abraham AST [Catalytic activity/Vol] 14 U/L Critically low 15-37 [facility] Comment on above: Performed By: #### C RP, T7, CMP, URIC, LIPID, TSH ####[facility] [address] [place] [address]Dr. Guevara Abraham Bilirubin [Mass/Vol] 0.4 mg/dL Normal 0.2-1.0 [facility] Comment on above: Performed By: #### C RP, T7, CMP, URIC, LIPID, TSH ####[facility] [address] [place] [address]Dr. Guevara Abraham Calcium [Mass/Vol] 8.8 mg/dL Normal 8.5-10.1 [facility] Comment on above: Performed By: #### C RP, T7, CMP, URIC, LIPID, TSH ####[facility] [address] [place] [address]Dr. Guevara Abraham Chloride [Moles/Vol] 107 mmol/L Normal 98-107 [facility] Comment on above: Performed By: #### C RP, T7, CMP, URIC, LIPID, TSH ####[facility] [address] [place] [address]Dr. Guevara Abraham CO2 [Moles/Vol] 26.8 mmol/L Normal 21.0-32.0 [facility] Comment on above: Performed By: #### C RP, T7, CMP, URIC, LIPID, TSH ####[facility] [address] [place] [address]Dr. Guevara Abraham Creatinine [Mass/Vol] 0.85 mg/dL Normal 0.55-1.02 [facility] Comment on above: Performed By: #### C RP, T7, CMP, URIC, LIPID, TSH ####[facility] [address] [place], [place] [address]Dr. Guevara Jarad EGFR-AF COLOMBIAN >60 Normal >=60 [facility] Comment on above: Performed By: #### C RP, T7, CMP, URIC, LIPID, TSH ####[facility] [address] [place], [place] [address]Dr. Guevara Jarad EGFR-NON AF COLOMBIAN >60 Normal >=60 [facility] Comment on above: Performed By: #### C RP, T7, CMP, URIC, LIPID, TSH ####[facility] [address] [place] [address]Dr. Guevara Abraham Globulin (S) [Mass/Vol] 3.2 g/dL Normal [facility] Comment on above: Performed By: #### C RP, T7, CMP, URIC, LIPID, TSH ####[facility] [address] [place] [address]Dr. Zabrinameño Abraham Glucose [Mass/Vol] 96 mg/dL Normal 74-106 [facility] Comment on above: Performed By: #### C RP, T7, CMP, URIC, LIPID, TSH ####[facility] [address] [place], [place] [address]Dr. Guevara Abraham Potassium [Moles/Vol] 3.7 mmol/L Normal 3.5-5.1 [facility] Comment on above: Performed By: #### C RP, T7, CMP, URIC, LIPID, TSH ####[facility] [address] [place] [address]Dr. Guevara Abraham Protein [Mass/Vol] 7.1 g/dL Normal 6.4-8.2 [facility] Comment on above: Performed By: #### C RP, T7, CMP, URIC, LIPID, TSH ####[facility] [address] [place] [address]Dr. Guevara Abraham Sodium [Moles/Vol] 143 mmol/L Normal 136-145 [facility] Comment on above: Performed By: #### C RP, T7, CMP, URIC, LIPID, TSH ####[facility] [address] [place] [address]Dr. Guevara Abraham Urea nitrogen [Mass/Vol] 13.0 mg/dL Normal 7.0-18.0 [facility] Comment on above: Performed By: #### C RP, T7, CMP, URIC, LIPID, TSH ####[facility] [address] [place] [address]Dr. Guevara Abraham Urea nitrogen/Creatini ne [Mass ratio] 15.3 mg/mg Normal [facility] Comment on above: Performed By: #### C RP, T7, CMP, URIC, LIPID, TSH ####[facility] [address] [place] [address]Dr. Guevara Abraham TSHon 08-15-2022 TSH 5.411 uIU/mL Critically high 0.358-3.74 0 [facility] Comment on above: Performed By: #### C RP, T7, CMP, URIC, LIPID, TSH ####[facility] [address] [place] [address]Dr. Guveara Abarham URIC ACID SERUMon 08-15-2022 Urate [Mass/Vol] 3.1 mg/dL Normal 2.6-6.0 [facility] Comment on above: Performed By: #### C RP, T7, CMP, URIC, LIPID, TSH ####[facility] [address] [place], [place] [address]SqCain Abraham XR DEXA BONE DENSITYon 08-15 XR DEXA BONE DENSITY EXAMINATION: XR DEXA BONE DENSITY, 08/15/2022 8:14 AM EST HISTORY: Primary ovarian failure COMPARISON: 2020 TECHNIQUE: Dual-energy X-ray absorptiometry (DEXA) bone density study performed for the axial skeleton. FINDINGS: Bone mineral density AP spine L1-L4 measures 0.954 g/sq cm. T score -1.9. WHO classification: Osteopenia. Lowest bone mineral density left femoral trochanter measures 0.573 g/sq cm. T score -2.4. WHO consultation: Osteopenia IMPRESSION: Osteopenia. Moderate fracture risk Electronically authenticated by: MEERA HODGE Date: 2022-08-15 09:00 Normal [facility] XR LSPINE MIN 4 VIEWSon 08-06 XR LSPINE MIN 4 VIEWS EXAMINATION: XR LSPINE MIN 4 VIEWS HISTORY: Low back pain COMPARISON: No relevant comparison available. FINDINGS: BONES: No significant spondylosis, scoliosis, fracture, or visible bony lesion. DISC SPACES: Mild narrowing L5-S1. PARASPINOUS: Atherosclerotic disease of aorta without visible aneurysm. OTHER: Negative. IMPRESSION: 1. Mild degenerative disc disease at L5-S1. 2. No acute bone abnormality. Electronically authenticated by: CORINA CERVANTES Date: 2022-08-15 09:04 Normal [facility] MR head/brain wo conon 07-19 MR head/brain wo [place] [address] MRI Report Signed Patient: Dacia Finley MR#: [id number] : 1960 Acct:[id number] Age/Sex: 60 / F ADM Date: 07/19/21 Loc: [facility] Room: Type: [facility] Attending Dr: Himanshu Acosta DO Ordering Provider: Babatunde Acosta DO Date of Service: 07/19/21 MR/MR head/brain wo con: G25.0 S06.5X9A Copies to: Babatunde Acosta DO MR head/brain wo con 07/19/2021 9:30 AM SIGN AND SYMPTOMS: Tremors, history of subdural hematoma, migraine headaches PROTOCOL: Multiplanar multisequence MR images of the brain were obtained without IV contrast COMPARISON: None. FINDINGS: Extra axial spaces: There is age-related cortical atrophy which is slightly asymmetrically greater over the left cerebral convexity. Hemorrhage: None. Ventricular system: Within normal limits. Basal cisterns: Within normal limits and not effaced. Cerebral parenchyma: Normal in signal. Midline shift: None.. Cerebellum: Within normal limits. Brainstem: T2 and T2 FLAIR hyperintense signal is noted along the lateral aspect of the bone and base of the left middle cerebellar peduncle on the left. OTHER: Calvarium: Bur holes are present in the right frontal and parietal bones consistent with previous subdural hematoma evacuation. Vascular system: Satisfactory flow voids within the anterior and posterior circulation. Visualized Paranasal sinuses: Within normal limits. Visualized Orbits: Within normal limits. Visualized upper cervical spine: Within normal limits. Sella and skull base: Within normal limits. MR/MR head/brain wo con IMPRESSION: No acute intracranial pathology. T2 and T2 FLAIR hyperintense signal is noted along the lateral aspect of the bone and base of the left middle cerebellar peduncle on the left. This is nonspecific and most likely relates to the his tory of a remote traumatic injury. Bur holes are present in the right frontal and parietal bones consistent with previous subdural hematoma evacuation. Mild diffuse cortical atrophy is noted, greatest along the left cerebral convexity. Impression dictated by: Jack Giles M.D.07/19/2021 1:11 PM Dictation Location: [place] [address] Transcribed By: [facility] 07/19/21 1311 Dictated By: Jack Giles II, MD 07/19/21 1302 Signed By: 07/19/21 1311 Normal [facility] Physician Referralon 021 Physician Referral [id number] Normal [facility] [place] [facility] Basic Metabolic Profon 10-26 (cont.) Normal [facility] Comment on above: Result Comment: Aver age GFR for 50-59 years old: 93 mL/min/1.73sq m Chronic Kidney Disease: <60 mL/min/1.73sq m Kidney failure: <15 mL/min/1.73sq m eGFR calculated using average adult body mass. Additional eGFR calculator available at: http://www.[employer]/multiple_crcl_2012.htm Performed By: #### C DP, BMP, CRP, PRCAL #### [facility] [address] [place] [phone] Packaging Operator: Sabas Lamb MD Anion gap [Moles/Vol] 9 mmol/L Normal 9-17 [facility] Comment on above: Performed By: #### C DP, BMP, CRP, PRCAL #### [facility] [address] [place] [address] Packaging Operator: Sabas Lamb MD Calcium [Mass/Vol] 8.3 mg/dL Low 8.6-10.4 [facility] Comment on above: Performed By: #### C DP, BMP, CRP, PRCAL #### [facility] [address] [place] [phone] Packaging Operator: Sabas Lamb MD Chloride [Moles/Vol] 100 mmol/L Normal 98-107 [facility] Comment on above: Performed By: #### C DP, BMP, CRP, PRCAL #### [facility] [address] [place] [phone] Packaging Operator: Sabas Lamb MD CO2 [Moles/Vol] 26 mmol/L Normal 20-31 [facility] Comment on above: Performed By: #### C DP, BMP, CRP, PRCAL #### [facility] [address] [place] [phone] Packaging Operator: Sabas Lamb MD Creatinine [Mass/Vol] 0.26 mg/dL Low 0.50-0.90 [facility] Comment on above: Performed By: #### C DP, BMP, CRP, PRCAL #### [facility] [address] [place] [address] [place] [address] Packaging Operator: Sabas Lamb MD GFR, Amer >60 Normal >60 [facility] Comment on above: Performed By: #### C DP, BMP, CRP, PRCAL #### [facility] [address] [place] [phone] Packaging Operator: Sabas Lamb MD GFR,non Amer >60 Normal >60 [facility] Comment on above: Performed By: #### C DP, BMP, CRP, PRCAL #### [facility] [address] [place] [phone] Packaging Operator: Sabas Lamb MD Glucose [Mass/Vol] 112 mg/dL High 70-99 [facility] Comment on above: Performed By: #### C DP, BMP, CRP, PRCAL #### [facility] [address] [place] [phone] Packaging Operator: Sabas Lamb MD Potassium [Moles/Vol] 3.1 mmol/L Low 3.7-5.3 [facility] Comment on above: Performed By: #### C DP, BMP, CRP, PRCAL #### [facility] [address] [place] [phone] Packaging Operator: Sabas Lamb MD Sodium [Moles/Vol] 135 mmol/L Normal 135-144 [facility] Comment on above: Performed By: #### C DP, BMP, CRP, PRCAL #### [facility] [address] [place] [phone] Packaging Operator: Sabas Lamb MD Urea nitrogen [Mass/Vol] 6 mg/dL Normal 6-20 [facility] Comment on above: Performed By: #### C DP, BMP, CRP, PRCAL #### [facility] [address] [place] [phone] Packaging Operator: Sabas Lamb MD BUN/CRE Ratio NOT REPORTED Normal 9-20 [facility] Comment on above: Performed By: #### C DP, BMP, CRP, PRCAL #### [place] [address] Packaging Operator: Sabas Lamb MD Staging: NOT REPORTED Normal [facility] Comment on above: Performed By: #### C DP, BMP, CRP, PRCAL #### [place] [address] Packaging Operator: Sabas Lamb MD CBC with Diffon 10-26-2018 Abs. Basophil <0.03 Normal 0.00-0.20 [facility] Comment on above: Performed By: #### C DP, BMP, CRP, PRCAL #### [place] [address] Packaging Operator: Sabas Lamb MD Abs.Imm.Granulocy te 0.03 k/uL Normal 0.00-0.30 [facility] Comment on above: Performed By: #### C DP, BMP, CRP, PRCAL #### [place] [address] Packaging Operator: Sabas Lamb MD Abs.Neutrophil (Seg) 7.04 k/uL Normal 1.50-8.10 [facility] Comment on above: Performed By: #### C DP, BMP, CRP, PRCAL #### [place] [address] Packaging Operator: Sabas Lamb MD Basophils/100 WBC (Bld) 0 % Normal 0-2 [facility] Comment on above: Performed By: #### C DP, BMP, CRP, PRCAL #### [place] [address] Packaging Operator: Sabas Lamb MD Eosinophils (Bld) [#/Vol] 0.08 10*3/uL Normal 0.00-0.44 [facility] Comment on above: Performed By: #### C DP, BMP, CRP, PRCAL #### [address] [address] Packaging Operator: Sabas Lamb MD Eosinophils/100 WBC (Bld) 1 % Normal 1-4 [facility] Comment on above: Performed By: #### C DP, BMP, CRP, PRCAL #### [place] [address] Packaging Operator: Sabas Lamb MD Erythrocyte distribution width (RBC) [Ratio] 12.0 % Normal 11.8-14.4 [facility] Comment on above: Performed By: #### C DP, BMP, CRP, PRCAL #### [place] [address] Packaging Operator: Sabas Lamb MD Hematocrit (Bld) [Volume fraction] 32.3 % Low 36.3-47.1 [facility] Comment on above: Performed By: #### C DP, BMP, CRP, PRCAL #### [place] [address] Packaging Operator: Sabas Lamb MD Hemoglobin (Bld) [Mass/Vol] 10.5 g/dL Low 11.9-15.1 [facility] Comment on above: Performed By: #### C DP, BMP, CRP, PRCAL #### [place] [address] Packaging Operator: Sabas Lamb MD Immature granulocytes (Bld) [#/Vol] 0 % Normal 0 [facility] Comment on above: Performed By: #### C DP, BMP, CRP, PRCAL #### [address] [address] Packaging Operator: Sabas Lamb MD Lymphocytes (Bld) [#/Vol] 1.45 10*3/uL Normal 1.10-3.70 [facility] Comment on above: Performed By: #### C DP, BMP, CRP, PRCAL #### [address] [address] Packaging Operator: Sabas Lamb MD Lymphocytes/100 WBC (Bld) 16 % Low 24-43 [facility] Comment on above: Performed By: #### C DP, BMP, CRP, PRCAL #### [place] [address] Packaging Operator: Sabas Lamb MD MCH (RBC) [Entitic mass] 31.3 pg Normal 25.2-33.5 [facility] Comment on above: Performed By: #### C DP, BMP, CRP, PRCAL #### [place] [address] Packaging Operator: Sabas Lamb MD MCHC (RBC) [Mass/Vol] 32.5 g/dL Normal 28.4-34.8 [facility] Comment on above: Performed By: #### C DP, BMP, CRP, PRCAL #### [place] [address] Packaging Operator: Sabas Lamb MD MCV (RBC) [Entitic vol] 96.1 fL Normal 82.6-102.9 [facility] Comment on above: Performed By: #### C DP, BMP, CRP, PRCAL #### [place] [address] Packaging Operator: Sabas Lamb MD Monocytes (Bld) [#/Vol] 0.54 10*3/uL Normal 0.10-1.20 [facility] Comment on above: Performed By: #### C DP, BMP, CRP, PRCAL #### [address] [address] Packaging Operator: Sabas Lamb MD Monocytes/100 WBC (Bld) 6 % Normal 3-12 [facility] Comment on above: Performed By: #### C DP, BMP, CRP, PRCAL #### [address] [address] Packaging Operator: Sabas Lamb MD Neutrophil (Seg) 77 % High 36-65 [facility] Comment on above: Performed By: #### C DP, BMP, CRP, PRCAL #### [address] [address] Packaging Operator: Sabas Lamb MD NRBC Automated 0.0 per 100 WBC Normal 0.0 [facility] Comment on above: Performed By: #### C DP, BMP, CRP, PRCAL #### [address] [address] Packaging Operator: Sabas Lamb MD Platelet mean volume (Bld) [Entitic vol] 11.7 fL Normal 8.1-13.5 [facility] Comment on above: Performed By: #### C DP, BMP, CRP, PRCAL #### [address] [address] Packaging Operator: Sabas Lamb MD Platelets (Bld) [#/Vol] 261 10*3/uL Normal 138-453 [facility] Comment on above: Performed By: #### C DP, BMP, CRP, PRCAL #### [address] [address] Packaging Operator: Sabas Lamb MD RBC (Bld) [#/Vol] 3.36 10*6/uL Low 3.95-5.11 [facility] Comment on above: Performed By: #### C DP, BMP, CRP, PRCAL #### [address] [address] Packaging Operator: Sabas Lamb MD WBC (Bld) [#/Vol] 9.2 10*3/uL Normal 3.5-11.3 [facility] Comment on above: Performed By: #### C DP, BMP, CRP, PRCAL #### [facility] [address] [place] [address] Packaging Operator: Sabas Lamb MD Auto Diff Performed NOT REPORTED Normal [facility] Comment on above: Performed By: #### C DP, BMP, CRP, PRCAL #### [facility] [address] [place] [phone] Packaging Operator: Sabas Lamb MD Platelets (Bld) [#/Vol] NOT REPORTED Normal [facility] Comment on above: Performed By: #### C DP, BMP, CRP, PRCAL #### [facility] [address] [place] [phone] Packaging Operator: Sabas Lamb MD RBC morphology finding Nom (Bld) NOT REPORTED Normal [facility] Comment on above: Performed By: #### C DP, BMP, CRP, PRCAL #### [facility] [address] [place] [phone] Packaging Operator: Sabas Lamb MD WBC Morphology NOT REPORTED Normal [facility] Comment on above: Performed By: #### C DP, BMP, CRP, PRCAL #### [facility] [address] [place] [phone] Packaging Operator: Sabas Lamb MD Basic Metabolic Profon 10-25 (cont.) Normal [facility] Comment on above: Result Comment: Aver age GFR for 50-59 years old: 93 mL/min/1.73sq m Chronic Kidney Disease: <60 mL/min/1.73sq m Kidney failure: <15 mL/min/1.73sq m eGFR calculated using average adult body mass. Additional eGFR calculator available at: http://www.[employer]/multiple_crcl_2012.htm Performed By: #### C DP, BMP, CRP, PRCAL #### [facility] [address] [place] [address] Packaging Operator: Sabas Lamb MD Anion gap [Moles/Vol] 9 mmol/L Normal 9-17 [facility] Comment on above: Performed By: #### C DP, BMP, CRP, PRCAL #### [address] [address] Packaging Operator: Sabas Lamb MD Calcium [Mass/Vol] 8.5 mg/dL Low 8.6-10.4 [facility] Comment on above: Performed By: #### C DP, BMP, CRP, PRCAL #### [address] [address] Packaging Operator: Sabas Lamb MD Chloride [Moles/Vol] 100 mmol/L Normal 98-107 [facility] Comment on above: Performed By: #### C DP, BMP, CRP, PRCAL #### [facility] [address] [place] [address] Packaging Operator: Sabas Lamb MD CO2 [Moles/Vol] 28 mmol/L Normal 20-31 [facility] Comment on above: Performed By: #### C DP, BMP, CRP, PRCAL #### [address] [address] Packaging Operator: Sabas Lamb MD Creatinine [Mass/Vol] 0.31 mg/dL Low 0.50-0.90 [facility] Comment on above: Performed By: #### C DP, BMP, CRP, PRCAL #### [facility] [address] [place] [phone] Packaging Operator: Sabas Lamb MD GFR, Amer >60 Normal >60 [facility] Comment on above: Performed By: #### C DP, BMP, CRP, PRCAL #### [facility] [address] [place] [phone] Packaging Operator: Sabas Lamb MD GFR,non Amer >60 Normal >60 [facility] Comment on above: Performed By: #### C DP, BMP, CRP, PRCAL #### [facility] [address] [place] [phone] Packaging Operator: Sabas Lamb MD Glucose [Mass/Vol] 111 mg/dL High 70-99 [facility] Comment on above: Performed By: #### C DP, BMP, CRP, PRCAL #### [facility] [address] [place] [phone] Packaging Operator: Sabas Lamb MD Potassium [Moles/Vol] 3.4 mmol/L Low 3.7-5.3 [facility] Comment on above: Performed By: #### C DP, BMP, CRP, PRCAL #### [address] [address] Packaging Operator: Sabas Lamb MD Sodium [Moles/Vol] 137 mmol/L Normal 135-144 [facility] Comment on above: Performed By: #### C DP, BMP, CRP, PRCAL #### [address] [address] Packaging Operator: Sabas Lamb MD Urea nitrogen [Mass/Vol] 9 mg/dL Normal 6-20 [facility] Comment on above: Performed By: #### C DP, BMP, CRP, PRCAL #### [facility] [address] [place] [phone] Packaging Operator: Sabas Lamb MD BUN/CRE Ratio NOT REPORTED Normal -20 [facility] Comment on above: Performed By: #### C DP, BMP, CRP, PRCAL #### [facility] [address] [place] [phone] Packaging Operator: Sabas Lamb MD Staging: NOT REPORTED Normal [facility] Comment on above: Performed By: #### C DP, BMP, CRP, PRCAL #### [address] [address] Packaging Operator: Sabas Lamb MD CBC with Diffon 10-25-2018 Abs. Basophil 0.03 k/uL Normal 0.00-0.20 [facility] [facility] Comment on above: Performed By: #### C DP, BMP, CRP, PRCAL #### [place] [address] Packaging Operator: Sabas Lamb MD Abs.Imm.Granulocy te 0.05 k/uL Normal 0.00-0.30 [facility] Comment on above: Performed By: #### C DP, BMP, CRP, PRCAL #### [place] [address] Packaging Operator: Sabas Lamb MD Abs.Neutrophil (Seg) 10.20 k/uL High 1.50-8.10 [facility] Comment on above: Performed By: #### C DP, BMP, CRP, PRCAL #### [place] [address] Packaging Operator: Sabas Lamb MD Basophils/100 WBC (Bld) 0 % Normal 0-2 [facility] Comment on above: Performed By: #### C DP, BMP, CRP, PRCAL #### [place] [address] Packaging Operator: Sabas Lamb MD Eosinophils (Bld) [#/Vol] 0.04 10*3/uL Normal 0.00-0.44 [facility] Comment on above: Performed By: #### C DP, BMP, CRP, PRCAL #### [address] [address] Packaging Operator: Sabas Lamb MD Eosinophils/100 WBC (Bld) 0 % Low 1-4 [facility] Comment on above: Performed By: #### C DP, BMP, CRP, PRCAL #### [address] [address] Packaging Operator: Sabas Lamb MD Erythrocyte distribution width (RBC) [Ratio] 11.9 % Normal 11.8-14.4 [facility] Comment on above: Performed By: #### C DP, BMP, CRP, PRCAL #### [place] [address] Packaging Operator: Sabas Lamb MD Hematocrit (Bld) [Volume fraction] 31.5 % Low 36.3-47.1 [facility] Comment on above: Performed By: #### C DP, BMP, CRP, PRCAL #### [place] [address] Packaging Operator: Sabas Lamb MD Hemoglobin (Bld) [Mass/Vol] 10.4 g/dL Low 11.9-15.1 [facility] Comment on above: Performed By: #### C DP, BMP, CRP, PRCAL #### [place] [address] Packaging Operator: Sabas Lamb MD Immature granulocytes (Bld) [#/Vol] 0 % Normal 0 [facility] Comment on above: Performed By: #### C DP, BMP, CRP, PRCAL #### [place] [address] Packaging Operator: Sabas Lamb MD Lymphocytes (Bld) [#/Vol] 0.96 10*3/uL Low 1.10-3.70 [facility] Comment on above: Performed By: #### C DP, BMP, CRP, PRCAL #### [address] [address] Packaging Operator: Sabas Lamb MD Lymphocytes/100 WBC (Bld) 8 % Low 24-43 [facility] Comment on above: Performed By: #### C DP, BMP, CRP, PRCAL #### [address] [address] Packaging Operator: Sabas Lamb MD MCH (RBC) [Entitic mass] 31.9 pg Normal 25.2-33.5 [facility] Comment on above: Performed By: #### C DP, BMP, CRP, PRCAL #### [address] [address] Packaging Operator: Sabas Lamb MD MCHC (RBC) [Mass/Vol] 33.0 g/dL Normal 28.4-34.8 [facility] Comment on above: Performed By: #### C DP, BMP, CRP, PRCAL #### [address] [address] Packaging Operator: Sabas Lamb MD MCV (RBC) [Entitic vol] 96.6 fL Normal 82.6-102.9 [facility] Comment on above: Performed By: #### C DP, BMP, CRP, PRCAL #### [address] [address] Packaging Operator: Sabas Lamb MD Monocytes (Bld) [#/Vol] 0.75 10*3/uL Normal 0.10-1.20 [facility] Comment on above: Performed By: #### C DP, BMP, CRP, PRCAL #### [address] [address] Packaging Operator: Sabas Lamb MD Monocytes/100 WBC (Bld) 6 % Normal 3-12 [facility] Comment on above: Performed By: #### C DP, BMP, CRP, PRCAL #### [address] [address] Packaging Operator: Sabas Lamb MD Neutrophil (Seg) 86 % High 36-65 [facility] Comment on above: Performed By: #### C DP, BMP, CRP, PRCAL #### [address] [address] Packaging Operator: Sabas Lamb MD NRBC Automated 0.0 per 100 WBC Normal 0.0 [facility] Comment on above: Performed By: #### C DP, BMP, CRP, PRCAL #### [address] [address] Packaging Operator: Sabas Lamb MD Platelet mean volume (Bld) [Entitic vol] 11.4 fL Normal 8.1-13.5 [facility] Comment on above: Performed By: #### C DP, BMP, CRP, PRCAL #### [address] [address] Packaging Operator: Sabas Lamb MD Platelets (Bld) [#/Vol] 238 10*3/uL Normal 138-453 [facility] Comment on above: Performed By: #### C DP, BMP, CRP, PRCAL #### [address] [address] Packaging Operator: Sabas Lamb MD RBC (Bld) [#/Vol] 3.26 10*6/uL Low 3.95-5.11 [facility] Comment on above: Performed By: #### C DP, BMP, CRP, PRCAL #### [address] [address] Packaging Operator: Sabas Lamb MD WBC (Bld) [#/Vol] 12.0 10*3/uL High 3.5-11.3 [facility] Comment on above: Performed By: #### C DP, BMP, CRP, PRCAL #### [address] [address] Packaging Operator: Sabas Lamb MD Auto Diff Performed NOT REPORTED Normal [facility] Comment on above: Performed By: #### C DP, BMP, CRP, PRCAL #### [facility] [address] [place] [phone] Packaging Operator: Sabas Lamb MD Platelets (Bld) [#/Vol] NOT REPORTED Normal [facility] Comment on above: Performed By: #### C DP, BMP, CRP, PRCAL #### [facility] [address] [place] [address] Packaging Operator: Sabas Lamb MD RBC morphology finding Nom (Bld) NOT REPORTED Normal [facility] Comment on above: Performed By: #### C DP, BMP, CRP, PRCAL #### [facility] [address] [place] [address] Packaging Operator: Sabas Lamb MD WBC Morphology NOT REPORTED Normal [facility] Comment on above: Performed By: #### C DP, BMP, CRP, PRCAL #### [facility] [address] [place] [address] Packaging Operator: Sabas Lamb MD Lipid Profileon 10-25-2018 Cholesterol [Mass/Vol] 114 mg/dL Normal <200 [facility] Comment on above: Result Comment: Cholesterol Guidelines: <200 Desirable 200-240 Borderline >240 Undesirable Performed By: #### C DP, BMP, CRP, PRCAL #### [facility] [address] [place] [address] Packaging Operator: Sabas Lamb MD Cholesterol in HDL [Mass/Vol] 37 mg/dL Low >40 [facility] Comment on above: Result Comment: HDL Guidelines: <40 Undesirable 40-59 Borderline >59 Desirable Performed By: #### C DP, BMP, CRP, PRCAL #### [facility] [address] [place] [address] Packaging Operator: Sabas Lamb MD Cholesterol in LDL [Mass/Vol] 63 mg/dL Normal 0-130 [facility] Comment on above: Result Comment: LDL Guidelines: <100 Desirable 100-129 Near to/above Desirable 130-159 Borderline >159 Undesirable Direct (measured) LDL and calculated LDL are not interchangeable tests. Performed By: #### C DP, BMP, CRP, PRCAL #### [facility] [address] [place] [address] Packaging Operator: Sabas Lamb MD Cholesterol.total /Cholesterol in HDL [Mass ratio] 3.1 {ratio} Normal <5 [facility] Comment on above: Performed By: #### C DP, BMP, CRP, PRCAL #### [address] [address] Packaging Operator: Sabas Lamb MD Triglyceride [Mass/Vol] 71 mg/dL Normal <150 [facility] Comment on above: Result Comment: Triglyceride Guidelines: <150 Desirable 150-199 Borderline 200-499 High >499 Very high Based on AHA Guidelines for fasting triglyceride, March 2012. Performed By: #### C DP, BMP, CRP, PRCAL #### [facility] [address] [place] [phone] Packaging Operator: Sabas Lamb MD Cholesterol in VLDL [Mass/Vol] NOT REPORTED Normal 07-07 [facility] Comment on above: Performed By: #### C DP, BMP, CRP, PRCAL #### [facility] [address] [place] [address] Packaging Operator: Sabas Lamb MD Specimen Rejectionon 019 ----- NOT REPORTED Normal [facility] Comment on above: Performed By: #### C DP, BMP, CRP, PRCAL #### [facility] [address] [place] [phone] Packaging Operator: Sabas Lamb MD Reason for rejection Unable to perform testing: Specimen mislabeled. Normal [facility] Comment on above: Performed By: #### C DP, BMP, CRP, PRCAL #### [facility] [address] Packaging Operator: Sabas Lamb MD Source of sample .BLOOD Normal [facility] Comment on above: Performed By: #### C DP, BMP, CRP, PRCAL #### [address] [address] Packaging Operator: Sabas Lamb MD Test ordered BMP CDP Normal [facility] Comment on above: Performed By: #### C DP, BMP, CRP, PRCAL #### [address] [address] Packaging Operator: Sabas Lamb MD APTTon 10-24-2018 aPTT Coag (Bld) [Time] 26.3 s Normal 20.5-30.5 [facility] Comment on above: Performed By: #### C DP, BMP, CRP, PRCAL #### [address] [address] Packaging Operator: Sabas Lamb MD Basic Metabolic Profon 10-24 (cont.) [facility] Comment on above: Result Comment: Aver age GFR for 50-59 years old: 93 mL/min/1.73sq m Chronic Kidney Disease: <60 mL/min/1.73sq m Kidney failure: <15 mL/min/1.73sq m eGFR calculated using average adult body mass. Additional eGFR calculator available at: http://www.[employer].com/multiple_crcl_2012.htm Performed By: #### C DP, BMP, CRP, PRCAL #### [address] [address] Packaging Operator: Sabas Lamb MD Anion gap [Moles/Vol] 14 mmol/L Normal 9-17 [facility] Comment on above: Performed By: #### C DP, BMP, CRP, PRCAL #### [address] [address] Packaging Operator: Sabas Lamb MD Calcium [Mass/Vol] 9.1 mg/dL Normal 8.6-10.4 [facility] Comment on above: Performed By: #### C DP, BMP, CRP, PRCAL #### [address] [address] Packaging Operator: Sabas Lamb MD Chloride [Moles/Vol] 101 mmol/L Normal 98-107 [facility] Comment on above: Performed By: #### C DP, BMP, CRP, PRCAL #### [address] [address] Packaging Operator: Sabas Lamb MD CO2 [Moles/Vol] 23 mmol/L Normal 20-31 [facility] Comment on above: Performed By: #### C DP, BMP, CRP, PRCAL #### [address] [address] Packaging Operator: Sabas Lamb MD Creatinine [Mass/Vol] 0.34 mg/dL Low 0.50-0.90 [facility] Comment on above: Performed By: #### C DP, BMP, CRP, PRCAL #### [address] [address] Packaging Operator: Sabas Lamb MD GFR, Amer >60 Normal >60 [facility] Comment on above: Performed By: #### C DP, BMP, CRP, PRCAL #### [facility] [address] [place] [address] Packaging Operator: Sabas Lamb MD GFR,non Amer >60 Normal >60 [facility] Comment on above: Performed By: #### C DP, BMP, CRP, PRCAL #### [facility] [address] [place] [address] Packaging Operator: Sabas Lamb MD Glucose [Mass/Vol] 86 mg/dL Normal 70-99 [facility] Comment on above: Performed By: #### C DP, BMP, CRP, PRCAL #### [facility] [address] [place] [address] Packaging Operator: Sabas Lamb MD Potassium [Moles/Vol] 3.9 mmol/L Normal 3.7-5.3 [facility] Comment on above: Performed By: #### C DP, BMP, CRP, PRCAL #### [facility] [address] [place] [address] Packaging Operator: Sabas Lamb MD Sodium [Moles/Vol] 138 mmol/L Normal 135-144 [facility] Comment on above: Performed By: #### C DP, BMP, CRP, PRCAL #### [facility] [address] [place] [address] Packaging Operator: Sabas Lamb MD Urea nitrogen [Mass/Vol] 11 mg/dL Normal 6-20 [facility] Comment on above: Performed By: #### C DP, BMP, CRP, PRCAL #### [address] [address] Packaging Operator: Sabas Lamb MD BUN/CRE Ratio NOT REPORTED Normal -20 [facility] Comment on above: Performed By: #### C DP, BMP, CRP, PRCAL #### [facility] [address] [place] [address] Packaging Operator: Sabas Lamb MD Staging: NOT REPORTED Normal [facility] Comment on above: Performed By: #### C DP, BMP, CRP, PRCAL #### [facility] [address] [place] [address] Packaging Operator: Sabas Lamb MD CBC with Diffon 10-24-2018 Abs. Basophil 0.03 k/uL Normal 0.00-0.20 [facility] Comment on above: Performed By: #### C DP, BMP, CRP, PRCAL #### [address] [address] Packaging Operator: Sabas Lamb MD Abs.Imm.Granulocy te 0.05 k/uL Normal 0.00-0.30 [facility] Comment on above: Performed By: #### C DP, BMP, CRP, PRCAL #### [address] [address] Packaging Operator: Sabas Lamb MD Abs.Neutrophil (Seg) 12.06 k/uL High 1.50-8.10 [facility] Comment on above: Performed By: #### C DP, BMP, CRP, PRCAL #### [place] [address] Packaging Operator: Sabas Lamb MD Basophils/100 WBC (Bld) 0 % Normal 0-2 [facility] Comment on above: Performed By: #### C DP, BMP, CRP, PRCAL #### [place] [address] Packaging Operator: Sabas Lamb MD Eosinophils (Bld) [#/Vol] 10*3/uL Normal 0.00-0.44 [facility] Comment on above: Performed By: #### C DP, BMP, CRP, PRCAL #### [address] [address] Packaging Operator: Sabas Lamb MD Eosinophils/100 WBC (Bld) 0 % Low 1-4 [facility] Comment on above: Performed By: #### C DP, BMP, CRP, PRCAL #### [facility] [address] [place] [address] Packaging Operator: Sabas Lamb MD Erythrocyte distribution width (RBC) [Ratio] 11.9 % Normal 11.8-14.4 [facility] Comment on above: Performed By: #### C DP, BMP, CRP, PRCAL #### [place] [address] Packaging Operator: Sabas Lamb MD Hematocrit (Bld) [Volume fraction] 39.6 % Normal 36.3-47.1 [facility] Comment on above: Performed By: #### C DP, BMP, CRP, PRCAL #### [place] [address] Packaging Operator: Sabas Lamb MD Hemoglobin (Bld) [Mass/Vol] 12.3 g/dL Normal 11.9-15.1 [facility] Comment on above: Performed By: #### C DP, BMP, CRP, PRCAL #### [place] [address] Packaging Operator: Sabas Lamb MD Immature granulocytes (Bld) [#/Vol] 0 % Normal 0 [facility] Comment on above: Performed By: #### C DP, BMP, CRP, PRCAL #### [place] [address] Packaging Operator: Sabas Lamb MD Lymphocytes (Bld) [#/Vol] 0.82 10*3/uL Low 1.10-3.70 [facility] Comment on above: Performed By: #### C DP, BMP, CRP, PRCAL #### [place] [address] Packaging Operator: Sabas Lamb MD Lymphocytes/100 WBC (Bld) 6 % Low 24-43 [facility] Comment on above: Performed By: #### C DP, BMP, CRP, PRCAL #### [place] [address] Packaging Operator: Sabas Lamb MD MCH (RBC) [Entitic mass] 31.1 pg Normal 25.2-33.5 [facility] Comment on above: Performed By: #### C DP, BMP, CRP, PRCAL #### [address] [address] Packaging Operator: Sabas Lamb MD MCHC (RBC) [Mass/Vol] 31.1 g/dL Normal 28.4-34.8 [facility] Comment on above: Performed By: #### C DP, BMP, CRP, PRCAL #### [address] [address] Packaging Operator: Sabas Lamb MD MCV (RBC) [Entitic vol] 100.3 fL Normal 82.6-102.9 [facility] Comment on above: Performed By: #### C DP, BMP, CRP, PRCAL #### [address] [address] Packaging Operator: Sabas Lamb MD Monocytes (Bld) [#/Vol] 0.80 10*3/uL Normal 0.10-1.20 [facility] Comment on above: Performed By: #### C DP, BMP, CRP, PRCAL #### [address] [address] Packaging Operator: Sabas Lamb MD Monocytes/100 WBC (Bld) 6 % Normal 3-12 [facility] Comment on above: Performed By: #### C DP, BMP, CRP, PRCAL #### [address] [address] Packaging Operator: Sabas Lamb MD Neutrophil (Seg) 88 % High 36-65 [facility] Comment on above: Performed By: #### C DP, BMP, CRP, PRCAL #### [address] [address] Packaging Operator: Sabas Lamb MD NRBC Automated 0.0 per 100 WBC Normal 0.0 [facility] Comment on above: Performed By: #### C DP, BMP, CRP, PRCAL #### [address] [address] Packaging Operator: Sabas Lamb MD Platelet mean volume (Bld) [Entitic vol] 11.5 fL Normal 8.1-13.5 [facility] Comment on above: Performed By: #### C DP, BMP, CRP, PRCAL #### [address] [address] Packaging Operator: Sabas Lamb MD Platelets (Bld) [#/Vol] 261 10*3/uL Normal 138-453 [facility] Comment on above: Performed By: #### C DP, BMP, CRP, PRCAL #### [address] [address] Packaging Operator: Sabas Lamb MD RBC (Bld) [#/Vol] 3.95 10*6/uL Normal 3.95-5.11 [facility] Comment on above: Performed By: #### C DP, BMP, CRP, PRCAL #### [address] [address] Packaging Operator: Sabas Lamb MD WBC (Bld) [#/Vol] 13.8 10*3/uL High 3.5-11.3 [facility] Comment on above: Performed By: #### C DP, BMP, CRP, PRCAL #### [address] [address] Packaging Operator: Sabas Lamb MD Auto Diff Performed NOT REPORTED Normal [facility] Comment on above: Performed By: #### C DP, BMP, CRP, PRCAL #### [address] [address] Packaging Operator: Sabas Lamb MD Platelets (Bld) [#/Vol] NOT REPORTED Normal [facility] Comment on above: Performed By: #### C DP, BMP, CRP, PRCAL #### [address] [address] Packaging Operator: Sabas Lamb MD RBC morphology finding Nom (Bld) NOT REPORTED Normal [facility] Comment on above: Performed By: #### C DP, BMP, CRP, PRCAL #### [address] [address] Packaging Operator: Sabas Lamb MD WBC Morphology NOT REPORTED Normal [facility] Comment on above: Performed By: #### C DP, BMP, CRP, PRCAL #### [address] [address] Packaging Operator: Sabas Lamb MD PTon 10-24-2018 INR Coag (PPP) [Relative time] 1.0 {INR} Normal [facility] Comment on above: Result Comment: Therapeutic Range: Moderate Anticoagulant Intensity: INR = 2.0-3.0 High Anticoagulant Intensity: INR = 2.5-3.5 Performed By: #### C DP, BMP, CRP, PRCAL #### [address] [address] Packaging Operator: Sabas Lamb MD PT Coag (PPP) [Time] 10.8 s Normal 9.0-12.0 [facility] Comment on above: Performed By: #### C DP, BMP, CRP, PRCAL #### [address] [address] Packaging Operator: Sabas Lamb MD Basic Metabolic Profon 10-23 (cont.) Normal [facility] Comment on above: Result Comment: Aver age GFR for 50-59 years old: 93 mL/min/1.73sq m Chronic Kidney Disease: <60 mL/min/1.73sq m Kidney failure: <15 mL/min/1.73sq m eGFR calculated using average adult body mass. Additional eGFR calculator available at: http://www.[employer]/multiple_crcl_2012.htm Performed By: #### C DP, BMP, CRP, PRCAL #### [facility] [address] [place] [phone] Packaging Operator: Sabas Lamb MD Anion gap [Moles/Vol] 14 mmol/L Normal 9-17 [facility] Comment on above: Performed By: #### C DP, BMP, CRP, PRCAL #### [facility] [address] [place] [phone] Packaging Operator: Sabas Lamb MD Calcium [Mass/Vol] 8.2 mg/dL Low 8.6-10.4 [facility] Comment on above: Performed By: #### C DP, BMP, CRP, PRCAL #### [address] [address] Packaging Operator: Sabas Lamb MD Chloride [Moles/Vol] 107 mmol/L Normal 98-107 [facility] Comment on above: Performed By: #### C DP, BMP, CRP, PRCAL #### [address] [address] Packaging Operator: Sabas Lamb MD CO2 [Moles/Vol] 20 mmol/L Normal 20-31 [facility] Comment on above: Performed By: #### C DP, BMP, CRP, PRCAL #### [facility] [address] [place] [address] Packaging Operator: Sabas Lamb MD Creatinine [Mass/Vol] 0.42 mg/dL Low 0.50-0.90 [facility] Comment on above: Performed By: #### C DP, BMP, CRP, PRCAL #### [facility] [address] [place] [phone] Packaging Operator: Sabas Lamb MD GFR, Amer >60 Normal >60 [facility] Comment on above: Performed By: #### C DP, BMP, CRP, PRCAL #### [facility] [address] Packaging Operator: Sabas Lamb MD GFR,non Amer >60 Normal >60 [facility] Comment on above: Performed By: #### C DP, BMP, CRP, PRCAL #### [address] [address] Packaging Operator: Sabas Lamb MD Glucose [Mass/Vol] 87 mg/dL Normal 70-99 [facility] Comment on above: Performed By: #### C DP, BMP, CRP, PRCAL #### [address] [address] Packaging Operator: Sabas Lamb MD Potassium [Moles/Vol] 3.9 mmol/L Normal 3.7-5.3 [facility] Comment on above: Performed By: #### C DP, BMP, CRP, PRCAL #### [address] [address] Packaging Operator: Sabas Lamb MD Sodium [Moles/Vol] 141 mmol/L Normal 135-144 [facility] Comment on above: Performed By: #### C DP, BMP, CRP, PRCAL #### [facility] [address] [place] [address] Packaging Operator: Sabas Lamb MD Urea nitrogen [Mass/Vol] 14 mg/dL Normal 6-20 [facility] Comment on above: Performed By: #### C DP, BMP, CRP, PRCAL #### [facility] [address] [place] [phone] Packaging Operator: Sabas Lamb MD BUN/CRE Ratio NOT REPORTED Normal -20 [facility] Comment on above: Performed By: #### C DP, BMP, CRP, PRCAL #### [address] [address] Packaging Operator: Sabas Lamb MD Staging: NOT REPORTED Normal [facility] Comment on above: Performed By: #### C DP, BMP, CRP, PRCAL #### [address] [address] Packaging Operator: Sabas Lamb MD C-Reactive Proteinon 019 CRP [Mass/Vol] 40.6 mg/L High 0.0-5.0 [facility] Comment on above: Performed By: #### C DP, BMP, CRP, PRCAL #### [address] [address] Packaging Operator: Sabas Lamb MD CBC with Diffon 10-23-2018 Abs. Basophil 0.03 k/uL Normal 0.00-0.20 [facility] Comment on above: Performed By: #### C DP, BMP, CRP, PRCAL #### [address] [address] Packaging Operator: Sabas Lamb MD Abs.Imm.Granulocy te 0.05 k/uL Normal 0.00-0.30 [facility] Comment on above: Performed By: #### C DP, BMP, CRP, PRCAL #### [address] [address] Packaging Operator: Sabas Lamb MD Abs.Neutrophil (Seg) 13.74 k/uL High 1.50-8.10 [facility] Comment on above: Performed By: #### C DP, BMP, CRP, PRCAL #### [facility] [address] [place] [address] Packaging Operator: Sabas Lamb MD Basophils/100 WBC (Bld) 0 % Normal 0-2 [facility] Comment on above: Performed By: #### C DP, BMP, CRP, PRCAL #### [facility] [address] [place] [address] Packaging Operator: Sabas Lamb MD Eosinophils (Bld) [#/Vol] 10*3/uL Normal 0.00-0.44 [facility] Comment on above: Performed By: #### C DP, BMP, CRP, PRCAL #### [address] [address] Packaging Operator: Sabas Lamb MD Eosinophils/100 WBC (Bld) 0 % Low 1-4 [facility] Comment on above: Performed By: #### C DP, BMP, CRP, PRCAL #### [facility] [address] [place] [address] Packaging Operator: Sabas Lamb MD Erythrocyte distribution width (RBC) [Ratio] 12.1 % Normal 11.8-14.4 [facility] Comment on above: Performed By: #### C DP, BMP, CRP, PRCAL #### [address] [address] Packaging Operator: Sabas Lamb MD Hematocrit (Bld) [Volume fraction] 35.7 % Low 36.3-47.1 [facility] Comment on above: Performed By: #### C DP, BMP, CRP, PRCAL #### [facility] [address] [place] [address] Packaging Operator: Sabas Lamb MD Hemoglobin (Bld) [Mass/Vol] 11.5 g/dL Low 11.9-15.1 [facility] Comment on above: Performed By: #### C DP, BMP, CRP, PRCAL #### [facility] [address] [place] [address] Packaging Operator: Sabas Lamb MD Immature granulocytes (Bld) [#/Vol] 0 % Normal 0 [facility] Comment on above: Performed By: #### C DP, BMP, CRP, PRCAL #### [facility] [address] [place] [address] Packaging Operator: Sabas Lamb MD Lymphocytes (Bld) [#/Vol] 1.21 10*3/uL Normal 1.10-3.70 [facility] Comment on above: Performed By: #### C DP, BMP, CRP, PRCAL #### [address] [address] Packaging Operator: Sabas Lamb MD Lymphocytes/100 WBC (Bld) 8 % Low 24-43 [facility] Comment on above: Performed By: #### C DP, BMP, CRP, PRCAL #### [address] [address] Packaging Operator: Sabas Lamb MD MCH (RBC) [Entitic mass] 31.8 pg Normal 25.2-33.5 [facility] Comment on above: Performed By: #### C DP, BMP, CRP, PRCAL #### [address] [address] Packaging Operator: Sabas Lamb MD MCHC (RBC) [Mass/Vol] 32.2 g/dL Normal 28.4-34.8 [facility] Comment on above: Performed By: #### C DP, BMP, CRP, PRCAL #### [address] [address] Packaging Operator: Sabas Lamb MD MCV (RBC) [Entitic vol] 98.6 fL Normal 82.6-102.9 [facility] Comment on above: Performed By: #### C DP, BMP, CRP, PRCAL #### [address] [address] Packaging Operator: Sabas Lamb MD Monocytes (Bld) [#/Vol] 1.01 10*3/uL Normal 0.10-1.20 [facility] Comment on above: Performed By: #### C DP, BMP, CRP, PRCAL #### [address] [address] Packaging Operator: Sabas Lamb MD Monocytes/100 WBC (Bld) 6 % Normal 3-12 [facility] Comment on above: Performed By: #### C DP, BMP, CRP, PRCAL #### [address] [address] Packaging Operator: Sabas Lamb MD Neutrophil (Seg) 86 % High 36-65 [facility] Comment on above: Performed By: #### C DP, BMP, CRP, PRCAL #### [facility] [address] [place] [address] Packaging Operator: Sabas Lamb MD NRBC Automated 0.0 per 100 WBC Normal 0.0 [facility] Comment on above: Performed By: #### C DP, BMP, CRP, PRCAL #### [address] [address] Packaging Operator: Sabas Lamb MD Platelet mean volume (Bld) [Entitic vol] 11.7 fL Normal 8.1-13.5 [facility] Comment on above: Performed By: #### C DP, BMP, CRP, PRCAL #### [address] [address] Packaging Operator: Sabas Lamb MD Platelets (Bld) [#/Vol] 268 10*3/uL Normal 138-453 [facility] Comment on above: Performed By: #### C DP, BMP, CRP, PRCAL #### [address] [address] Packaging Operator: Sabas Lamb MD RBC (Bld) [#/Vol] 3.62 10*6/uL Low 3.95-5.11 [facility] Comment on above: Performed By: #### C DP, BMP, CRP, PRCAL #### [address] [address] Packaging Operator: Sabas Lamb MD WBC (Bld) [#/Vol] 16.1 10*3/uL High 3.5-11.3 [facility] Comment on above: Performed By: #### C DP, BMP, CRP, PRCAL #### [address] [address] Packaging Operator: Sabas Lamb MD Auto Diff Performed NOT REPORTED Normal [facility] Comment on above: Performed By: #### C DP, BMP, CRP, PRCAL #### [facility] [address] [place] [address] Packaging Operator: Sabas Lamb MD Platelets (Bld) [#/Vol] NOT REPORTED Normal [facility] Comment on above: Performed By: #### C DP, BMP, CRP, PRCAL #### [address] [address] Packaging Operator: Sabas Lamb MD RBC morphology finding Nom (Bld) NOT REPORTED Normal [facility] Comment on above: Performed By: #### C DP, BMP, CRP, PRCAL #### [facility] [address] [place] [address] Packaging Operator: Sabas Lamb MD WBC Morphology NOT REPORTED Normal [facility] Comment on above: Performed By: #### C DP, BMP, CRP, PRCAL #### [address] [address] Packaging Operator: Sabas Lamb MD CT HEAD WO CONTRASTon 2018 CT HEAD WO CONTRAST EXAMINATION: CT OF THE HEAD WITHOUT CONTRAST 10/23/2018 4:09 am TECHNIQUE: CT of the head was performed without the administration of intravenous contrast. Dose modulation, iterative reconstruction, and/or weight based adjustment of the mA/kV was utilized to reduce the radiation dose to as low as reasonably achievable. COMPARISON: 10/22/2018 HISTORY: ORDERING SYSTEM PROVIDED HISTORY: post alpa hole TECHNOLOGIST PROVIDED HISTORY: Ordering Physician Provided Reason for Exam: post alpa holes Acuity: Unknown Type of Exam: Unknown FINDINGS: BRAIN/VENTRICLES: Mixed attenuation extensive subdural collection on the right is again seen, slightly decreased in volume. Pneumocephalus is now present. Midline shift has improved. Midline shift currently measures 8 mm. There is no hydrocephalus. ORBITS: The visualized portion of the orbits demonstrate no acute abnormality. SINUSES: There mild to moderate circumferential mucosal thickening in the maxillary sinuses. There is also bilateral ethmoid sinus mucosal thickening with trace left sphenoid sinus mucosal thickening. SOFT TISSUES/SKULL: Stanley holes are now seen in the right frontal and parietal bones. There is overlying subcutaneous soft tissue swelling and gas. IMPRESSION: Improving right subdural collection with diminished midline shift after alpa hole placement. Interpreted by: Cas Contreras MD Signed by: Cas Contreras MD 10/23/18 Final result Normal [facility] MRI BRAIN W CONTRASTon 10-23 MRI BRAIN W CONTRAST EXAMINATION: MRI OF THE BRAIN WITH CONTRAST 10/23/2018 11:33 am TECHNIQUE: Multiplanar multisequence MRI of the head/brain was performed with the administration of intravenous contrast. COMPARISON: CT brain performed 10/23/2018. HISTORY: ORDERING SYSTEM PROVIDED HISTORY: SDH, concern for mass FINDINGS: INTRACRANIAL STRUCTURES/VENTRICLES: The sellar and suprasellar structures, optic chiasm, corpus callosum, pineal gland, tectum, and midline brainstem structures are unremarkable. The craniocervical junction is unremarkable. There is redemonstration of a subdural hemorrhage over the right cerebral hemisphere with a mild amount of pneumocephalus. There is leftward shift measuring approximately 9 mm. There may be trace left subdural fluid over the left frontal lobe. There is satisfactory overall vasquez-white matter differentiation. The ventricular structures are grossly unremarkable. The infratentorial structures including the cerebellopontine angles and internal auditory canals are unremarkable. There is no abnormal postcontrast enhancement within the brain parenchyma. ORBITS: The visualized portion of the orbits demonstrate no acute abnormality. SINUSES: The mastoid air cells are normally aerated. There is chronic sinusitis throughout the paranasal sinuses. BONES/SOFT TISSUES: The bone marrow signal intensity appears normal. The soft tissues demonstrate no acute abnormality. IMPRESSION: Redemonstration of a subdural hemorrhage over the right cerebral hemisphere with a mild amount of pneumocephalus. There is leftward midline shift that is similar compared to prior exam. There may be minimal left subdural fluid over the left frontal lobe. Chronic pansinusitis. Interpreted by: Freddie Maldonado MD Signed by: Freddie Maldonado MD 10/23/18 Final result Normal [facility] OPERATIVE REPORTon 10-23-201 [address] [address] OPERATIVE REPORT PATIENT NAME: DACIA FINLEY : 1960 MED REC NO: [id number] ROOM: [facility] ACCOUNT NO: [id number] ADMIT DATE: 10/22/2018 PROVIDER: Meera Rojas DATE OF PROCEDURE: 10/22/2018PREOPERATIVE DIAGNOSIS: Right convexity of subdural hematoma. POSTOPERATIVE DIAGNOSIS: Right convexity of subdural hematoma. PROCEDURE: Right-sided bur holes for evacuation of subdural hematoma. SURGEON: Meera Rojas MD ANESTHESIA: General endotracheal anesthesia. ESTIMATED BLOOD LOSS: 50 mL. INDICATIONS FOR SURGERY: This patient is a 58-year-old woman who has had a couple of weeks of gradually worsening headache along with lightheadedness and coughing. She presented at [facility] ER earlier today due to these complaints and was found to have a sizeable right-sided subdural hematoma. She was transferred to [place] for further management. She was reported to be neurologically intact when at the outside hospital, but upon arrival to the ER at [place], she was noted to have some mild left-sided weakness and also some difficulty with orientation questions. It was felt that she was completely symptomatic from the subdural hematoma and would require evacuation. The majority of the subdural hematoma was subacute or chronic in appearance, and although there were some areas of more acute-appearing clot, I felt that I would probably be able to achieve adequate decompression with bur hole drainage alone; although, I prepared the patient for the possibility of a craniotomy. Risks, benefits, and alternatives to this approach were discussed with the patient at length, and after having an opportunity to have her questions answered, she provided her consent to proceed to the operating room. DESCRIPTION OF PROCEDURE: The patient was brought to the operating room, and general endotracheal anesthesia was successfully induced by the Anesthesia Service without incident. She was positioned in the supine position on the operating table with the head rotated to the left in a doughnut headrest to expose the right side of the scalp. The hair was clipped with an electric clipper from the right side of the scalp, and the right frontal and parietal incisions were planned and oriented such that they could be incorporated in the larger question jack-style incision of the craniotomy if it became necessary. She received Ancef perioperative antibiosis. The area was prepped and draped in the usual sterile fashion. A time-out was performed. The incisions were infiltrated with local anesthetic with epinephrine, and the skin was then incised with a 10-blade. Bovie electrocautery was used to dissect down to the skull, and the pericranium was reflected and retracted on either side. A small Weitlaner was placed at the incision. I started at the frontal incision. The same process was then repeated on the parietal incision. I then preformed a bur hole using a perforating bit at the frontal incision and again did so at the parietal incision. Hemorrhage from the bone was controlled with thrombin-Gelfoam powder and bone wax. The dura was coagulated and then opened using Bovie electrocautery on a nerve hook at the frontal incision. There was the brisk return of old blood products that were clearly under significant pressure. Substantial amount of blood expressed through the opening. I then opened the dura at the posterior incision in the same way and encountered somewhat more organized clot at this level. I was able to break it up with irrigation, and several sections of clot were noted to be irrigated out. I then copiously irrigated it from alternating. This was continued until the irrigation returned clean. I then placed some thrombin-Gelfoam powder at the dural openings and closed the wound in layers. The incisions were closed with inverted interrupted 2-0 Vicryl suture to reapproximate the galea. The skin was closed with a running 4-0 Monocryl over the skin stitch. The wounds were cleaned and dried and dressed with bacitracin ointment and a bordered gauze dressing. The patient was extubated in the operating room without incident. All sponge, instrument, and needle counts were correct at the conclusion of the case. She was taken to recovery in stable condition without evidence of complication. MEERA ROJAS [id number] Doc#: [id number] CC: Normal [facility] Procalcitoninon 10-23-2018 Procalcitonin 0.06 ng/mL Normal <0.09 [facility] Comment on above: Result Comment: Suspected Sepsis: 0.09-0.49 ng/mL Low likelihood of sepsis. 0.50-2.00 ng/mL Increased likelihood of sepsis. Antibiotics encouraged. >2.00 ng/mL High risk of sepsis/shock. Antibiotics strongly encouraged. Suspected Lower Resp Tract Infections: 0.09-0.24 ng/mL Low likelihood of bacterial infection. >0.24 ng/mL Increased likelihood of bacterial infection. Antibiotics encouraged. With successful antibiotic therapy, PCT levels should decrease rapidly. (Half-life of 24 to 36 hours.) Procalcitonin values from samples collected within the first 6 hours of systemic infection may still be low. Retesting may be indicated. Values from day 1 and day 4 can be entered into the Change in Procalcitonin Calculator (www.hdunoe-cxw-whstjovtdt.[employer]) to determine the patient's Mortality Risk Prognosis Performed By: #### C DP, BMP, CRP, PRCAL #### [address] [address] Packaging Operator: Sabas Lamb MD XR CHEST PORTABLEon 10-24-19 19 XR CHEST PORTABLE EXAMINATION: ONE XRAY VIEW OF THE CHEST 10/23/2018 7:22 am COMPARISON: Chest radiograph 10/22/2018 HISTORY: ORDERING SYSTEM PROVIDED HISTORY: sdh,stuporous,leukocytosis TECHNOLOGIST PROVIDED HISTORY: sdh,stuporous,leukocytosis Ordering Physician Provided Reason for Exam: sdh,leukocytosis Acuity: Unknown Type of Exam: Unknown FINDINGS: Single view provided. Mild rotation. Stable mediastinal and cardiac silhouettes aortic atherosclerosis. Stable pulmonary hyperinflation with no acute consolidation or interstitial changes. No effusion or pneumothorax. No pulmonary mass. No free subdiaphragmatic air. IMPRESSION: Pulmonary hyperinflation suggesting COPD. No acute abnormality. Interpreted by: Jose Carlos Carlson MD Signed by: Jose Carlos Carlson MD 10/23/18 Final result Normal [facility] Platelets,Transfuseon 2018 Platelets,Transfu se Unit Number [id number] Blood Component Type Leukocyte Reduced Irradiated Plateletpheresis Unit Division 00 Status of Unit TRANSFUSED Transfusion Status OK TO TRANSFUSE Normal [facility] Comment on above: Performed By: #### T PLT #### [employer] [address] [place], [place] [id number] Packaging Operator: Sabas Lamb MD Type + Screenon 10-22-2018 Type + Screen Sample Expiration Arm Band Number BE [id number] ABO/Rh(D) A POSITIVE Antibody Screen NEGATIVE Normal [facility] Comment on above: Performed By: #### T YS #### [employer] [address] [place] [address] Packaging Operator: Sabas Lamb MD Discharge Summaryon 06-07-20 Discharge Summary MR#: [id number] [facility] Name: Dacia Finley Admitted: 06/05/2017 Discharged: 06/06/2017 Date of : 1960 Physician: Rachele Post DO DISCHARGE SUMMARYDISCHARGE SERVICE: CCU.PRIMARY DIAGNOSIS: Acute coronary syndrome.SECONDARY DIAGNOSIS: Migraine.PROCEDURE: Percutaneous coronary intervention with stent placement.HOSPITAL COURSE: This is a 56-year-old female with past medical history ofmigraines, who was transferred from [facility]. She presented therewith chest discomfort and was found to have EKG abnormalities. In the lastmonth, the patient reported 3 episodes of chest pain with the latest beingCh Day. The chest pain was also associated with sweating, shortnessof breath, and nausea. She was transferred from [facility] andadmitted to the CCU. The patient's troponins were remained negative, butwith her chest pain and EKG changes, she was [facility] 90% stenosis in the RCA, 2 stents were put in the midRCA and distal RCA. The patient tolerated the procedure well. The day afterthe procedure, she had no chest pain and no EKG changes. The patient wasstarted on aspirin, Plavix, beta tone, statin and discharged home.CONDITION AT DISCHARGE: Stable at discharge.DISCHARGE DISPOSITION: To home.DISCHARGE INSTRUCTIONS:1. Take prescribed medications.2. For migraines, continue home medications.3. Tobacco use, use nicotine patches.4. No lifting objects heavier than 10 pounds for 1 week.5. No physical activity for 1 week.6. After 1 week, begin exercising 30 minutes a day.DISCHARGE MEDICATIONS:1. Aspirin 81 mg.2. Atorvastatin 80 mg.3. Plavix 75 mg.4. Lisinopril 2.5 mg.5. Metoprolol 25 mg.6. Nicotine 21 mg patch.7. Imitrex 25 mg.Electronically Signed by:Rachele Post DO 06/15/2017 10:33 A Rachele Post DO I personally saw this patient on the day of the encounter, performed thekey portion(s) of the service and participated in the management andconfirm the resident's documentation. Please note there may be anadditional personal documentation from me. Date Dict: 06/06/2017/02:36 P/ROSI Keyate Trans: 06/07/2017 09:17 A/Kong_JN:[id number]: Ryan Arevalo M.D. [address] [facility] [address] Kel Bueno M.D. [facility] [place] [address] Normal [facility] BASIC METABOLIC PANELon 12-3 Calcium 9.3 mg/dL Normal 8.6-10.3 [facility] Comment on above: Order Comment: Unkno wn Performed By: #### 0 0071, 68753 ####[facility] [place] [address], [facility] Chloride 105 mmol/L Normal 98-107 [facility] Comment on above: Order Comment: Unkno wn Performed By: #### 0 0071, 40753 ####[facility] [facility] [place] [address], [facility] CO2 24 mmol/L Normal 21-31 [facility] Comment on above: Order Comment: Unkno wn Performed By: #### 0 0071, 67365 ####[facility] [place] [address], [facility] Creatinine 0.72 mg/dL Normal 0.60-1.20 [facility] Comment on above: Order Comment: Unkno wn Performed By: #### 0 0071, 70201 ####[facility] [place] [address] eGFR (black) mL/min/{1.73_m2} Normal >60 [facility] Comment on above: Order Comment: Unkno wn Performed By: #### 0 0071, [address]159 ####[address] eGFR (non-black) mL/min/{1.73_m2} Normal >60 [facility] Comment on above: Order Comment: Unkno wn Performed By: #### 0 0071, [address] ####[place] [address] [place] [address], [facility] Glucose mass conc 89 mg/dL Normal 70-100 [facility] Comment on above: Order Comment: Unkno wn Performed By: #### 0 0071, 24633 ####[facility] [facility] [place] [address], [facility] Potassium molar conc 3.8 mmol/L Normal 3.5-5.1 [facility] Comment on above: Order Comment: Unkno wn Performed By: #### 0 0071, 17818 ####[place] [address] [facility] [place] [address], [facility] Sodium 139 mmol/L Normal 136-145 [facility] Comment on above: Order Comment: Unkno wn Performed By: #### 0 0071, 30486 ####[facility] [facility], [place] [id number] [place] [address] Urea nitrogen 14 mg/dL Normal 7-25 [facility] Comment on above: Order Comment: Unkno wn Performed By: #### 0 0071, 81235 ####[facility] [facility], [place] [address] CBC COMPLETE BLOOD COUNTon Erythrocyte distribution width Auto Ratio (RBC) 13.3 % Normal 11.5-16.9 [facility] Comment on above: Order Comment: Unkno wn Performed By: #### 5 0608 ####[facility] [facility].[address] Erythrocytes (RBC) 4.43 mill/mm3 Normal 3.50-5.50 [facility] Comment on above: Order Comment: Unkno wn Performed By: #### 5 0608 ####[facility] [facility], [place] [id number] [place] [address] Hematocrit (HCT) 40.9 % Normal 36.0-48.0 [facility] Comment on above: Order Comment: Unkno wn Performed By: #### 5 0608 ####[facility] [facility] [place] [address], [facility] Hemoglobin mass conc (Bld) 13.6 g/dL Normal 12.0-15.0 [facility] Comment on above: Order Comment: Unkno wn Performed By: #### 5 0608 ####[facility] [facility] [place] [address], [facility] MCH 30.7 pg Normal 24.0-32.0 [facility] Comment on above: Order Comment: Unkno wn Performed By: #### 5 0608 ####[facility] [facility] [place] [address], [facility] MCHC mass conc (RBC) 33.2 g/dL Normal 32.0-36.0 [facility] Comment on above: Order Comment: Unkno wn Performed By: #### 5 0608 ####[place] [address] MCV 92.2 fL Normal 80.0-100.0 [facility] Comment on above: Order Comment: Unkno wn Performed By: #### 5 0608 ####[facility] PLAT CNT 194 Thou/mm3 Normal 100-400 [facility] Comment on above: Order Comment: Unkno wn Performed By: #### 5 0608 ####[place] [address] WBC (Leukocytes) 10.8 Thou/mm3 High 4.0-10.0 [facility] Comment on above: Order Comment: Unkno wn Performed By: #### 5 0608 ####[place] [address] Cardiovascular Lab Reporton 06-06-2017 Cardiovascular Lab Report [facility] MR #: [id number] Physician: lEías Zhao M.D.Medicine Service Date: 06/05/2017Division of Birthdate: 1960Cardiology Room #: 3CD [id number] Cardi[place]Services[place] [address]Phone Fax Cardiovascular Laboratory ReportINDICATION: Dacia Finley is a 56-year-old lady, who was admitted withunstable angina. She was referred for cardiac catheterization.PROCEDURES:1. Bilateral selective coronary angiography.2. Successful balloon dilatation and drug-eluting stenting of 90% stenosis in the mid RCA, reduced to 0% by deployment of a Synergy 3.0 x 16 mm drug-eluting stent post dilated to 3.0 mm at high pressures.3. Successful balloon dilatation and drug-eluting stenting of 70% long stenosis in the distal RCA, reduced to 0% by deployment of a Synergy, 2.75 x 38 mm drug-eluting stent post dilated to 3.0 mm at high pressures.4. Administration of intracoronary nitroglycerin.5. Limited right femoral angiography.METHODS: Procedure was explained to the patient with risks and benefits.She signed informed consent. She was brought to labeling strategist in a fastingstate. The right groin area was prepped and draped in usual fashion.Using micropuncture technique, the right common femoral artery wasaccessed. The inner cannula was advanced and limited right femoralangiography was performed followed by upsizing to a 5-[place] x 11 cmsheath. Bilateral selective carotid angiography was then performed using5-[place] JL4 and JR4 diagnostic catheters. Catheters were removed.Heparin was administered intravenously and therapeutic ACT confirmed duringthe procedure. A 5-[place] JR4 guiding catheter was advanced and used toengage the right coronary ostium. A Prowater wire was advanced into thedistal RCA. Balloon angioplasty was performed in the distal RCA usingEmerge 2.5 x 15 mm balloon inflated at 10 atmospheres. The balloon wasbrought backwards to the mid RCA and used to perform balloon angioplasty at10 atmospheres. Angiography revealed suboptimal results. Therefore, aSynergy 2.75 x 38 mm drug-eluting stent was advanced into the distal RCAand deployed at 11 atmospheres. This was postdilated using NC Quantum Apex3.0 x 20 mm noncompliant balloon, inflated at 16 atmospheres. Followingthat, a Synergy 3.0 x 16 mm drug-eluting stent was deployed in the mid RCAstenosis at 11 atmospheres overlapping with the previously deployed stentfollowed by post dilatation using NC Quantum [place] 3.0 x 20 mm noncompliantballoon inflated at 18 atmospheres treating the area of the overlap of thestents. Final angiography after administration of intracoronarynitroglycerin showed excellent result with reduction of the stenoses to 0%,no evidence of dissection or perforation. The guiding catheter wasremoved. The procedure was concluded. The patient was loaded with 600 mgof Plavix at the end of the procedure. She was transferred tocardiovascular recovery area. The access sheath will be removed and manualcompression applied for hemostasis when the ACT is subtherapeutic, she willthen be transferred back to her room.TOTAL FLUORO TIME: 13.32 minutes.TOTAL AIR KERMA: 295 mGy.TOTAL CONTRAST VOLUME: 100 mL.HEMODYNAMICS: AO 125/67, mean 90.CORONARY ANGIOGRAPHY: This is a right dominant circulationLeft main arises from left coronary cusp. It bifurcates into left anteriordescending and circumflex vessels. Left main is free of disease.Left anterior descending. This has two 30% mid segment lesions, but noobstructive stenosis.Circumflex vessel: This is nondominant, it has 30% stenosis in the secondobtuse marginal branch.Right coronary artery. This arises from the right coronary cusp. It is alarge and dominant vessel. It has mild disease in the ostium. There is a90% stenosis in the mid segment and 70% stenosis in the distal segment.There is diffuse disease throughout the course of the mid to distal RCA.The lesions were reduced to 0% by balloon angioplasty and drug-elutingstenting using 2 overlapping Synergy stents. Distally, the right coronaryartery bifurcates into PDA and PLV branches. Both are free of disease.LIMITED RIGHT FEMORAL ANGIOGRAPHY:This showed access to be in the right common femoral artery with noobstructive lesions noted in the femoral artery or its proximal branches.SUMMARY OF FINDINGS:1. Severe single-vessel coronary artery disease.2. 90% mid and 70% distal RCA stenosis reduced to 0% by 2 overlapping Synergy drug-eluting stents.3. Two 30% mid LAD stenoses.4. 30% stenosis in the second obtuse marginal branch.RECOMMENDATIONS:1. Aspirin and statin therapy for life.2. Plavix therapy for a minimum of 1 year after drug-eluting stenting and unstable angina presentation.3. Maximum control of risk factors.4. Follow up in Cardiology Clinic.Electronically Signed by:Elías Cannon M.D. 06/13/2017 07:19 A Elías Cannon M.D.Date Dict: 06/05/2017/03:03 P/Elías Cannon M.D.Date Trans: 06/06/2017 07:01 A/Kong_JN:[id number]: [facility] [address] [facility] [facility] [id number] Kel Bueno M.D. [facility]5 [facility] [id number] Normal [facility] MAGNESIUM BLOODon 06-06-2017 Magnesium 1.9 mg/dL Normal 1.9-2.7 [facility] Comment on above: Performed By: #### 5 [id number] ####[facility] [facility].[address] APTTon 06-05-2017 aPTT 32.6 s Normal 25.0-35.0 [facility] Comment on above: Order Comment: No: D o not add to previous draw Result Comment: ALL RESULTS MUST BE INTERPRETED WITH RESPECT TO BLOOD DRAWING ARTIFACTOR DILUTION ERROR OF ANTICOAGULANT AT THE TIME OF SAMPLING.THE APTT SHOULD NOT BE USED TO MONITOR UNFRACTIONATED HEPARIN THERAPY, THIS LABORATORY NO LONGER HAS AN ESTABLISHED THERAPEUTIC RANGE BASEDON THE APTT. IT IS RECOMMENDED THAT THE [facility] - HEPARIN ASSAY (ANTI-XAACTIVITY) BE USED FOR THIS PURPOSE. Performed By: #### 5 6101, [id number] ####[facility] [facility].[address] BASIC METABOLIC PANELon - Calcium 8.9 mg/dL Normal 8.6-10.3 [facility] Comment on above: Order Comment: No: D o not add to previous draw Performed By: #### 0 0071 ####[facility] [facility] [place] [address], [facility] Chloride 106 mmol/L Normal 98-107 [facility] Comment on above: Order Comment: No: D o not add to previous draw Performed By: #### 0 0071 ####[facility] [facility] [place] [address], [facility] CO2 28 mmol/L Normal 21-31 [facility] Comment on above: Order Comment: No: D o not add to previous draw Performed By: #### 0 0071 ####[facility] [place] [address], [facility] Creatinine 0.76 mg/dL Normal 0.60-1.20 [facility] Comment on above: Order Comment: No: D o not add to previous draw Performed By: #### 0 0071 ####[facility] [place] [address], [facility] eGFR (black) mL/min/{1.73_m2} Normal >60 [facility] Comment on above: Order Comment: No: D o not add to previous draw Performed By: #### 0 0071 ####[facility] [place] [address], [facility] eGFR (non-black) mL/min/{1.73_m2} Normal >60 [facility] Comment on above: Order Comment: No: D o not add to previous draw Performed By: #### 0 0071 ####[facility] [place] [address], [facility] Glucose mass conc 88 mg/dL Normal 70-100 [facility] Comment on above: Order Comment: No: D o not add to previous draw Performed By: #### 0 0071 ####[facility] [place] [address], [facility] Potassium molar conc 3.8 mmol/L Normal 3.5-5.1 [facility] Comment on above: Order Comment: No: D o not add to previous draw Performed By: #### 0 0071 ####[facility] [place] [address], [facility] Sodium 138 mmol/L Normal 136-145 [facility] Comment on above: Order Comment: No: D o not add to previous draw Performed By: #### 0 0071 ####[facility] [place] [address], [facility] Urea nitrogen 10 mg/dL Normal 7-25 [facility] Comment on above: Order Comment: No: D o not add to previous draw Performed By: #### 0 0071 ####[facility] CBC COMPLETE BLOOD COUNTon Erythrocyte distribution width Auto Ratio (RBC) 13.9 % Normal 11.5-16.9 [facility] Comment on above: Order Comment: No: D o not add to previous draw Performed By: #### 5 0608 ####[facility] Erythrocytes (RBC) 4.66 mill/mm3 Normal 3.50-5.50 [facility] Comment on above: Order Comment: No: D o not add to previous draw Performed By: #### 5 0608 ####[facility] [facility].[address] Hematocrit (HCT) 42.9 % Normal 36.0-48.0 [facility] Comment on above: Order Comment: No: D o not add to previous draw Performed By: #### 5 0608 ####[facility] [facility].[address] Hemoglobin mass conc (Bld) 14.2 g/dL Normal 12.0-15.0 [facility] Comment on above: Order Comment: No: D o not add to previous draw Performed By: #### 5 0608 ####[facility] [facility].[address] MCH 30.5 pg Normal 24.0-32.0 [facility] Comment on above: Order Comment: No: D o not add to previous draw Performed By: #### 5 0608 ####[facility] MCHC mass conc (RBC) 33.1 g/dL Normal 32.0-36.0 [facility] Comment on above: Order Comment: No: D o not add to previous draw Performed By: #### 5 0608 ####[facility] [place] [address], [facility] MCV 92.0 fL Normal 80.0-100.0 [facility] Comment on above: Order Comment: No: D o not add to previous draw Performed By: #### 5 0608 ####[facility] [place] [address], [facility] PLAT CNT 178 Thou/mm3 Normal 100-400 [facility] Comment on above: Order Comment: No: D o not add to previous draw Performed By: #### 5 0608 ####[facility] WBC (Leukocytes) 6.6 Thou/mm3 Normal 4.0-10.0 [facility] Comment on above: Order Comment: No: D o not add to previous draw Performed By: #### 5 0608 ####[facility] [facility].[address] Erythrocyte distribution width Auto Ratio (RBC) 13.1 % Normal 11.5-16.9 [facility] Comment on above: Order Comment: No: D o not add to previous draw Performed By: #### 5 0608 ####[facility] Erythrocytes (RBC) 4.49 mill/mm3 Normal 3.50-5.50 [facility] Comment on above: Order Comment: No: D o not add to previous draw Performed By: #### 5 0608 ####[facility] Hematocrit (HCT) 41.7 % Normal 36.0-48.0 [facility] Comment on above: Order Comment: No: D o not add to previous draw Performed By: #### 5 0608 ####[facility] [place] [address], [facility] Hemoglobin mass conc (Bld) 13.9 g/dL Normal 12.0-15.0 [facility] Comment on above: Order Comment: No: D o not add to previous draw Performed By: #### 5 0608 ####[facility] [place] [address], [facility] MCH 31.1 pg Normal 24.0-32.0 [facility] Comment on above: Order Comment: No: D o not add to previous draw Performed By: #### 5 0608 ####[facility] MCHC mass conc (RBC) 33.5 g/dL Normal 32.0-36.0 [facility] Comment on above: Order Comment: No: D o not add to previous draw Performed By: #### 5 0608 ####[facility] [place] [address], [facility] MCV 92.8 fL Normal 80.0-100.0 [facility] Comment on above: Order Comment: No: D o not add to previous draw Performed By: #### 5 0608 ####[facility] [place] [address], [facility] PLAT CNT 172 Thou/mm3 Normal 100-400 [facility] Comment on above: Order Comment: No: D o not add to previous draw Performed By: #### 5 0608 ####[facility] [place] [address], [facility] WBC (Leukocytes) 6.7 Thou/mm3 Normal 4.0-10.0 [facility] Comment on above: Order Comment: No: D o not add to previous draw Performed By: #### 5 0608 ####[facility] History and Physicalon 06-05 History and Physical MR#: [id number] Dacia Finley Admitted: 06/05/2017 Date of : 1960 Attending Physician: Wayne Donis MD Room #: [id number] Discharge Date: HISTORY AND PHYSICALCHIEF COMPLAINT: Chest pain.HISTORY OF PRESENT ILLNESS: The patient is a 56-year-old female withhistory of migraines, who was transferred from [facility] after shepresented there with chest discomfort and was found to have EKGabnormalities. The patient reported that she had 3 episodes of chest painprior to one that took her to the ER. She has in the beginning of themonth, 2 episodes of chest pain, the chest discomfort was located in themiddle of the left chest. It felt like sharp and pressure sensation withsome discomfort in the neck area. It was associated with sweating,shortness of breath, and nausea. It lasted for few minutes and went away.She was not exert in herself much when this happened. She was justwalking. On May 31, she had more intense episode when she was atwork, where she has pain in the same location and the same quality, but wasmore intense. It lasted longer for 10 minutes. The sharp discomfort wentaway after 10 minutes, but she continuous since then to have some pressuresensation in the middle of the chest. [facility] did [facility], which showed some T waveinversions in the lateral leads, [facility]. [facility] was negative and EKG again asmentioned, was abnormal with T wave inversion in the lateral leads. [facility]was [facility] andmanagement. When I saw her on the floor, she had minimal discomfort in herchest. She said that after taking a medication in outside hospital, thepain went away. She believe it was to decrease her heart rate, so Isuspect was metoprolol. The patient reported that she is a current smoker,she smokes about 1 pack a day, has been doing that for many years. Hermother on the table when she was having an open heart surgery afterheart attack, she was 56. The patient's father also from heartattack, he was in his late 70s. In the ER at outside hospital, thepatient's troponin was negative as mentioned above. I could not find a CBCor BMP from . A troponin there that was initially 0.024 and onrepeat was 0.02, which was negative per their lab. Her BNP was 517. Shehad INR of 0.92 and PTT of 24. I could not find any report of any chestx-ray done. We will review chest x-ray here. The patient was admitted forchest pain ruled out.PAST MEDICAL HISTORY: Migraines.SOCIAL HISTORY: She smokes about 1 pack a day, has been doing that formany years. She denies any heavy alcohol use or drug use.FAMILY HISTORY: Father of an OR at age 79 and mother of OR whenshe was having an open heart surgery at age 57.REVIEW OF SYSTEMS: A 10-point review of systems was done, and pertinentpositives and negatives mentioned in the HPI.MEDICATIONS: The patient only takes Imitrex for migraines as needed.PHYSICAL EXAMINATION: VITAL SIGNS: Temperature 98, pulse 75, [id number], blood pressure 129/80, and saturating 100% on room air.GENERAL: Pleasant, thin lady, in no acute distress.LUNGS: Clear to auscultation bilaterally.CV: Regular rate and rhythm with no murmurs, clicks, or gallops.ABDOMEN: Soft, nontender, and nondistended. Normal bowel sounds. Norebound. No guarding.EXTREMITIES: No edema.NEURO: She is awake and oriented x3. Face is symmetric. Speech isfluent. No cerebellar sign.SKIN: No rashes.LABORATORY DATA: As mentioned in the HPI.IMAGING: None.PROBLEMS:1. Chest pain: We will get serial troponins. Cardiology to see the patient in the morning. We will give nitrate as needed for chest pain and will use morphine if the chest pain is severe, not relieved with nitrate. Cardiology to decide about ordering an echo.2. History of migraines. No headache at this time. We will hold off on ordering Imitrex.3. DVT prophylaxis, enoxaparin.4. Full code.Electronically Signed by:Wayne Donis MD 06/29/2017 08:35 P __ROSI Buschate Dict: 06/05/2017/03:33 A/Wayne Donis MDDate Trans: 06/05/2017 04:23 A/nathanNas_[id number] Normal [facility] PROTHROMBIN TIMEon 7 INR Coag RelTime (PPP) 0.98 {INR} Normal 0.91-1.16 [facility] Comment on above: Order Comment: No: D o not add to previous draw Result Comment: ACCC P RECOMMENDED INR FOR WARFARIN THERAPY CONDITION INRPROPHYLAXIS OF VENOUS THROMBOSIS 2-3(HIGH-RISK SURGERY)TREATMENT OF VENOUS THROMBOSIS 2-3TREATMENT OF PULMONARY EMBOLISM 2-3PREVENTION OF SYSTEMIC EMBOLISM: 2-3 ACUTE MYOCARDIAL INFARCTION TISSUE HEART VALVES VALVULAR HEART DISEASE ATRIAL FIBRILLATION RECURRENT SYSTEMIC EMBOLISMMECHANICAL HEART VALVE 2.5-3.5 FROM: ORAL ANTICOAGULANTS. MECHANISM OF ACTION, CLINICALEFFECTIVENESS, AND OPTIMAL THERAPEUTIC RANGE. [id number]. Performed By: #### 5 6101, [id number] ####[facility] Prothrombin time (PT) Coag time (PPP) 13.0 s Normal 12.3-14.8 [facility] Comment on above: Order Comment: No: D o not add to previous draw Result Comment: ALL RESULTS MUST BE INTERPRETED WITH RESPECT TO BLOOD DRAWING ARTIFACTOR DILUTION ERROR OF ANTICOAGULANT AT THE TIME OF SAMPLING. Performed By: #### 5 6101, [id number] ####[facility] [facility] [place] [address], [facility] TROPONIN-Ion 06-05-2017 Troponin I.cardiac mass conc 0.03 ng/mL Normal 0.00-0.04 [facility] Comment on above: Order Comment: No: D o not add to previous draw Result Comment: REFE RENCE RANGES: 0.00 - 0.04 ng/ml NORMAL 0.05 - 0.50 ng/ml INDETERMINATE > 0.50 ng/ml CONSISTENT WITH AN M.I. Performed By: #### 3 5200 ####[facility] [facility] [address], [facility] Troponin I.cardiac mass conc 0.01 ng/mL Normal 0.00-0.04 [facility] Comment on above: Order Comment: No: D o not add to previous draw Result Comment: REFE RENCE RANGES: 0.00 - 0.04 ng/ml NORMAL 0.05 - 0.50 ng/ml INDETERMINATE > 0.50 ng/ml CONSISTENT WITH AN M.I. Performed By: #### 3 5200 ####[facility] [facility] [place] [address], [facility] Troponin I.cardiac mass conc 0.02 ng/mL Normal 0.00-0.04 [facility] Comment on above: Order Comment: No: D o not add to previous draw Result Comment: REFE RENCE RANGES: 0.00 - 0.04 ng/ml NORMAL 0.05 - 0.50 ng/ml INDETERMINATE > 0.50 ng/ml CONSISTENT WITH AN M.I. Performed By: #### 3 5200 ####[facility] [facility] [address], [facility] Vital Signs Date Time Vital Sign Value Performing Clinician Samir olivas 01-19-2023 11:15-0400 Diastolic blood pressure 92 mm[Hg] Elvira Scherer DO Work Phone: [facility] 01-19-2023 11:15-0400 Heart rate 75 /min Elvira Scherer DO Work Phone: [facility] [employer] 01-19-2023 11:15-0400 Respiratory rate 16 /min Elvira Scherer DO Work Phone: [facility] [employer] 01-19-2023 11:15-0400 SaO2% (BldA) [Mass fraction] 97 % Elvira Scherer DO Work Phone: [facility] [employer] 01-19-2023 11:15-0400 Systolic blood pressure 112 mm[Hg] Elvira Scherer DO Work Phone: [facility] [employer] 01-19-2023 10:48-0400 Body temperature 96.91 [degF] Elvira Scherer DO Work Phone: [facility] [employer] 01-19-2023 09:50-0400 Body height 154.9 cm Elvira Scherer DO Work Phone: [facility] [employer] 01-19-2023 09:50-0400 Body mass index (BMI) [Ratio] 19.84 kg/m2 Elvira Scherer DO Work Phone: [facility] [employer] 01-19-2023 09:50-0400 Body weight 47.63 kg Elvira Scherer DO Work Phone: [facility] [employer] 12-01-2022 10:15-0400 Diastolic blood pressure 67 mm[Hg] Elvira Scherer DO Work Phone: [facility] [employer] 12-01-2022 10:15-0400 Heart rate 66 /min Elvira Scherer DO Work Phone: [facility] [employer] 12-01-2022 10:15-0400 SaO2% (BldA) [Mass fraction] 97 % Elvira Scherer DO Work Phone: [facility] [employer] 12-01-2022 10:15-0400 Systolic blood pressure 112 mm[Hg] Elvira Scherer DO Work Phone: [facility] [employer] 12-01-2022 09:41-0400 Body temperature 97 [degF] Elvira Scherer DO Work Phone: [facility] 12-01-2022 09:41-0400 Respiratory rate 18 /min Elvirapietro Scherer Work Phone: [facility] 12-01-2022 08:20-0400 Body mass index (BMI) [Ratio] 20.18 kg/m2 Elivrapietro Scherer Work Phone: [facility] 12-01-2022 08:20-0400 Body weight 48.44 kg Elvirapietro Scherer Work Phone: [facility] 11-17-2022 11:32-0400 Body height 154.9 cm Elvirapietro Scherer Work Phone: [facility] Encounters Encounter Date Encounter Type Care Provider Facility Start: 01-19-2023 End: 01-19-2023 ambulatory RYAN [facility] Start: 01-19-2023 End: 01-19-2023 Subsequent hospital visit by physician Elvira Scherer DO Work Phone: [facility] Start: 12-01-2022 End: 12-01-2022 ambulatory [facility] Start: 12-01-2022 End: 12-01-2022 Subsequent hospital visit by physician Elvira Scherer DO Work Phone: [facility] Start: 09-09-2022 End: 09-10-[address] RYAN AREVALO . Facility:[facility] Start: 08-29-2022 Encounter for genera l adult medical examination without abnormal findings DR RYAN AREVALO . [facility] Start: 08-21-2022 End: 08-21-[address] RYAN AREVALO . Facility:[facility] Start: 08-21-2022 End: 08-21-2022 Encounter for general adult medical examination without abnormal findings DR RYAN AREVALO . Facility:[facility] Start: 08-15-2022 End: 08-16-[address] RYAN AREVALO . Facility:[facility] Start: 10-22-2018 End: 10-26-2018 Evaluation and management of inpatient MEERA ROJAS [facility] Start: 06-05-2017 End: 06-06-2017 Evaluation and management of inpatient KEL BUENO Facility:[facility] Procedures Date Procedure Procedure Detail Performing Clinician Start: 10-26-2018 IP CONSULT TO HOME CARE NEEDS MEERA ROJAS Start: 10-26-2018 DISCHARGE PATIENT MEERA ROJAS Start: 10-26-2018 INITIATE OXYGEN THER APY PROTOCOL MEERA ROJAS Start: 10-26-2018 Basic metabolic pane l calcium total MEERA ROJAS Start: 10-26-2018 Blood count complete auto&auto difrntl wbc MEERA ROJAS Start: 10-26-2018 INTAKE AND OUTPUT MEERA ROJAS Start: 10-25-2018 ELEVATE HEELS OFF OF BED MEERA ROJAS Start: 10-25-2018 HEAD OF BED 60 DEGRE ES OR LESS MEERA ROJAS Start: 10-25-2018 NURSING COMMUNICATION Porter ROJAS Start: 10-25-2018 TURN PATIENT MEERA GRANGER Flor Start: 10-25-2018 MISCELLANEOUS NURSIN G CARE ORDER (SPECIFY) MEERA ROJAS Start: 10-25-2018 INITIATE OXYGEN THER APY PROTOCOL MEERA ROJAS Start: 10-25-2018 Lipid panel MEERA Ray Start: 10-25-2018 Basic metabolic pane l calcium total MEERA ROJAS Start: 10-25-2018 Blood count complete auto&auto difrntl wbc MEERA ROJAS Start: 10-25-2018 PREVIOUS SPECIMEN MEERA ROJAS Start: 10-25-2018 Drug tst prsmv instr mnt chem analyzers pr date MEERA ROJAS Start: 10-25-2018 INTAKE AND OUTPUT MEERA ROJAS Start: 10-24-2018 Prothrombin time MEERA ROJAS Start: 10-24-2018 Thromboplastin time partial plasma/whole blood MEERA ROJAS Start: 10-24-2018 Basic metabolic pane l calcium total MEERA ROJAS Start: 10-24-2018 Blood count complete auto&auto difrntl wbc MEERA ROJAS Start: 10-24-2018 INITIATE OXYGEN THER APY PROTOCOL MEERA ROJAS Start: 10-24-2018 DIET GENERAL MEERA Ray Start: 10-24-2018 INTAKE AND OUTPUT MEERA ROJAS Start: 10-23-2018 Mri brain brain stem w/contrast material MEERA ROJAS Start: 10-23-2018 NURSING COMMUNICATION Porter ROJAS Start: 10-23-2018 Radiologic exam ches t single view MEERA ROJAS Start: 10-23-2018 INITIATE OXYGEN THER APY PROTOCOL MEERA ROJAS Start: 10-23-2018 Urnls dip stick/tabl et rgnt auto w/o microscopy MEERA ROJAS Start: 10-23-2018 Ct head/brain w/o co ntrast material MEERA ROJAS Start: 10-23-2018 Basic metabolic pane l calcium total MEERA ROJAS Start: 10-23-2018 Blood count complete auto&auto difrntl wbc MEERA ROJAS Start: 10-23-2018 C-reactive protein RENNY D BOB Start: 10-23-2018 Procalcitonin (pct) MERVIN ID BOB Start: 10-23-2018 INTAKE AND OUTPUT MEERA ROJAS Start: 10-23-2018 AMBULATE PATIENT MEERA ROJAS Start: 10-23-2018 CONTINUE INDWELLING CATHETHER MEERA ROJAS Start: 10-23-2018 ELEVATE HOB MEERA Ray Start: 10-23-2018 FULL CODE MEERA Ray Start: 10-23-2018 INITIATE OXYGEN THER APY PROTOCOL MEERA ROJAS Start: 10-23-2018 INTAKE AND OUTPUT MEERA ROJAS Start: 10-23-2018 NEURO CHECKS MEERA JOSELUISTyler Flor Start: 10-23-2018 OT EVAL AND TREAT MEERA RJOAS Start: 10-23-2018 PLACE INTERMITTENT P NEUMATIC COMPRESSION DEVICE MEERA ROJAS Start: 10-23-2018 PT EVAL AND TREAT MEERA ROJAS Start: 10-23-2018 SEIZURE PRECAUTIONS MERVIN ID BOB Start: 10-23-2018 BRAZING FURNACE FEEDER EVAL AND TREAT RENNY Buenrostro BOB Start: 10-23-2018 TOBACCO CESSATION EDUCATION MEERA ROJAS Start: 10-23-2018 VITAL SIGNS MEERA Ray Start: 10-23-2018 WOUND CARE MEERA ELKIN Ray Start: 10-22-2018 TRANSFUSE PLATELETS MERVIN ID BOB Start: 10-22-2018 Transfusion blood/bl ood components MEERA ROJAS Start: 10-22-2018 PATIENT STATUS (FROM ED OR OR/PROCEDURAL) MEERA ROJAS Start: 10-22-2018 TYPE AND SCREEN MEERA QUIÑONES Start: 10-22-2018 Ecg routine ecg w/le ast 12 lds w/i&r MEERA ROJAS Start: 10-22-2018 IP CONSULT TO NEUROSURGERY MEERA ROJAS Start: 06-05-2017 DILATION OF 1 COR AR T WITH 2 DRUG-ELUT, PERC APPROACH ELÍAS CANNON Start: 06-05-2017 FLUOROSCOPY OF MULTI PLE CORONARY ARTERIES USING OTH CONTRAST ELÍAS CANNON Plan of Treatment Date Care Activity Detail Author Start: 01-19-2023 End: 01-19-2023 Xcapsl ctrc rmvl insj io lens prosth w/o ecp EYE CATARACT EMULSIFICATION IOL IMPLANT Combined forms of age-related cataract of right eye 01/19/2023 10:26 AM [facility] Start: 01-06-2023 Influenza vaccination [facility] Start: 12-01-2022 End: 12-01-2022 Xcapsl ctrc rmvl insj io lens prosth w/o ecp EYE CATARACT EMULSIFICATION IOL IMPLANT Age-related nuclear cataract of left eye 12/01/2022 9:07 AM [facility] Start: 10-26-2019 Lipid panel Lipids [facility] Start: 08-29-2009 Screening for malign ant neoplasm of breast Breast cancer screen [facility] Start: 08-29-2009 Screening for malign ant neoplasm of lung Low dose CT lung screening &/or counseling [facility] Start: 08-29-2009 Shingles vaccine (1 of 2) Shingles vaccine (1 of 2) [facility] Start: 08-29-2004 Screening for malign ant neoplasm of colon [facility] Start: 08-29-1978 DTaP/Tdap/Td vaccine (1 - Tdap) DTaP/Tdap/Td vaccine (1 - Tdap) [facility] Start: 08-29-1977 Hepatitis C screening Hepatitis C sc reen [facility] Start: 08-29-1974 HIV screening HIV screen [facility] Start: 1971 Depression Screen Depression Screen [facility] Start: 08-29-1965 Pneumococcal 0-64 ye ars Vaccine (1 - PCV) Pneumococcal 0-64 years Vaccine (1 - PCV) [facility] Start: 03-01-1960 COVID-19 Vaccine (#1) COVID-19 Vacci ne (#1) [facility] Oxygen therapy [Mini mum Data Set] Initiate Oxygen Therapy Protocol Respiratory Care Routine Daily until discontinued starting 12/01/2022 [facility] Comment on above: Daily until disconti nued starting 12/01/2022 Oxygen therapy [Mini mum Data Set] Initiate Oxygen Therapy Protocol Respiratory Care Routine Daily until discontinued starting 12/01/2022 [facility] Comment on above: Daily until disconti nued starting 12/01/2022 Oxygen therapy [Mini mum Data Set] Initiate Oxygen Therapy Protocol Respiratory Care Routine Daily until discontinued starting 01/19/2023 [facility] [employer] [facility] Comment on above: Daily until disconti nued starting 01/19/2023 Oxygen therapy [[facility] Data Set] Initiate Oxygen Therapy Protocol Respiratory Care Routine Daily until discontinued starting 01/19/2023 [facility] [employer] Comment on above: Daily until disconti nued starting 01/19/2023 Payers Date Payer Category Payer Unknown [id number] [id number] 1960 Unknown [id number] 1960 Unknown [id number] 1959 Unknown [id number] [id number] [id number] 1959 Unknown [id number] [id number] [id number] 1960 Unknown [id number] [id number] [id number] 1960 [facility] [id number] Social History Date Type Detail Facility Start: 12-01-2022 [facility] [employer] History of tobacco use Cigarette Smoker B ON [employer] Start: 12-01-2022 Cigarettes smoked current (pack per day) - Reported 1 [facility] Start: 12-01-2022 Tobacco use and exposure Smoke less tobacco non-user [facility] [employer] Start: 12-01-2022 End: 01-19-2023 Alcohol intake Lifetime non-drinker (finding) [facility] [employer] Start: 10-23-2018 History SDOH Alcohol Frequency 1 [facility] [employer] Start: 1960 Sex Assigned At Not on file B ON [employer] Medical Equipment Procedure Code Equipment Code Equipment Origin al Text Equipment Identifier Dates Lens Intraocular Bcnvx 22+ Diopt 6x12.5 Mm Acryl [employer] - [id number] Start: 12-01-2022 Lens Intraocular Bcnvx 22+ Diopt 6x12.5 Mm [employer] - [id number] Start: 01-19-2023 History of Present illness Narrative 01-19-2023 Scot Velazquez RN - 01/19/2023 11:25 AM Susan Velazquez RN - 01/19/2023 11:20 AM Susan Velazquez RN - 01/19/2023 11:10 AM EDAddi Arnold RN - 01/07/2023 2:05 PM EDT Note Date & Type Note Facility 01-19-2023 History of Present illness Narrative Discharge Criteria Inpatients must meet Criteria 1 through 7. All other patients are either YES or N/A. If a NO is chosen then Anesthesia or Surgeon must be notified. 1. Minimum 30 minutes after last dose of sedative medication. Yes 2. Systolic BP between 90 - 160. Diastolic BP between 60 - 90. No, anesthesia aware and ok'd for discharge 3. Pulse between 60 - 120 Yes 4. Respirations between 8 - 25. Yes 5. SpO2 92% - 100%. Yes 6. Able to cough and swallow or return to baseline function. Yes 7. Alert and oriented or return to baseline mental status. Yes 8. Demonstrates controlled, coordinated movements, ambulates with steady gait, or return to baseline activity function. Yes 9. Minimal or no pain or nausea, or at a level tolerable and acceptable to patient. Yes 10. Takes and retains oral fluids as allowed. Yes 11. Procedural / perioperative site stable. Minimal or no bleeding. Yes 12. If GI endoscopy procedure, minimal or no abdominal distention or passing flatus. N/A 13. Written discharge instructions and emergency telephone number provided. Yes 14. Accompanied by a responsible adult. Yes Anesthesia aware of B/P reading advised patient to wait till this afternoon to take B/P med. Patient voiced understanding. Discharge instructions given to patient and with understanding voiced. No questions asked at this time. Patient received NPO instructions and pre-op medication instructions to be taken on the day of the procedure with a small sip of water. Pt was also given pre-op eye drop instructions from Dr. Scherer's office. Instructed pt to use inhaler and to take keppra and celexa with a small sip of water prior to arriving to the hospital the day of surgery. Attempted PAT phone call; no answer; message left to return PAT phone call. documented in this encounter [facility] Discharge instructions 01-19-2023 Discharge Instructions Note Date & Type Note Facility 01-19-2023 Hospital Discharg e instructions Elvira Scherer DO - 01/19/2023 10:52 AM EDT SAME DAY SURGERY DISCHARGE INSTRUCTIONS 1. Do not drive or operate hazardous machinery for 24 hours. 2. Do not make important personal or business decisions for 24 hours. 3. Do not drink alcoholic beverages for 24 hours. 4. Do not smoke tobacco products for 24 hours. 5. Limit your activities for 24 hours. Do not engage in heavy work until your surgeon gives you permission. 6. Patient should not be left alone for 12-24 hours following surgical procedure. 7. Wash hands before and after incision care. It is important to practice good personal hygiene during the post op period. 8. Report the following signs or any questions regarding your physical condition to your surgeon immediately: Excessive swelling of, or around the wound area. Redness. Temperature of 100 degrees (F) or above. Excessive pain. 9. Call your surgeon for any questions regarding your surgery. CATARACT DISCHARGE INSTRUCTIONS Do not remove eye patch/shield today. Protect the operated eye during sleep by covering it with clear plastic shield. Tape the shield securely to the face before retiring . Do this for one week after surgery. Avoid bumping the operated eye during the daytime. Sensitivity to light and watering of the eye is normal during the first month. Wearing of dark glasses will help these symptoms and this is optional. Minor crusting and discharge adherent to the lid margins will persist till the incision heals. Cleanse the lids by application of a warm compress several times a day as needed. Use of either the operated eye or unoperated eye is not harmful. Until the new glasses are prescribed, the operated eye may be out of focus and may not see details clearly. Vision maybe clearer in the operated eye without glasses. You may do everything necessary to care for yourself, including hair care, tooth brushing, dressing, etc. Light work,including stooping over and lifting, is not harmful. Please phone if any problems arise during the healing period. The office number is [phone]. Take surgery bag and all eye drops to Dr. Scherer's office tomorrow at 9:50am. You may resume your normal diet. Start your eye drops tomorrow after your post-op appointment: Ofloxacin/Polytrim one drop to the operated eye 4 times daily Prednisolone one drop to the operated eye 4 times daily documented in this encounter [facility] History of Present illness Narrative 12-01-2022 Kadie Mckinney RN - 12/01/2022 10:05 AM Octavio Mckinney RN - 12/01/2022 10:01 AM Susan Bryant RN - 12/01/2022 9:15 AM Roberta Chen RN - 11/21/2022 1:04 PM EDT Note Date & Type Note Facility 12-01-2022 History of Present illness Narrative Patient verbalizes readiness for discharge at this time. Discharge Criteria Inpatients must meet Criteria 1 through 7. All other patients are either YES or N/A. If a NO is chosen then Anesthesia or Surgeon must be notified. 1. Minimum 30 minutes after last dose of sedative medication. Yes 2. Systolic BP between 90 - 160. Diastolic BP between 60 - 90. Yes 3. Pulse between 60 - 120 Yes 4. Respirations between 8 - 25. Yes 5. SpO2 92% - 100%. Yes 6. Able to cough and swallow or return to baseline function. Yes 7. Alert and oriented or return to baseline mental status. Yes 8. Demonstrates controlled, coordinated movements, ambulates with steady gait, or return to baseline activity function. Yes 9. Minimal or no pain or nausea, or at a level tolerable and acceptable to patient. Yes 10. Takes and retains oral fluids as allowed. Yes 11. Procedural / perioperative site stable. Minimal or no bleeding. Yes 12. If GI endoscopy procedure, minimal or no abdominal distention or passing flatus. N/A 13. Written discharge instructions and emergency telephone number provided. Yes 14. Accompanied by a responsible adult. Yes Discharge instructions reviewed with patient and patient's spouse. Verbalized understanding and denied any questions. Contact lens soaked in patient's home supply of ophthalmic antibiotic solution prior to placement in eye at the end of procedure. EKG received from [facility], will have anesthesia review. Patient instructed on the pre-operative, intra-operative, and post-operative process. Patient instructed on NPO status. Medication instructions and pre operative instruction sheet reviewed with the patient. CHG skin prep instructions reviewed with patient via telephone. Patient instructed to stop taking all aspirin products for 7 days prior to surgery and to only take metoprolol and keppra the morning of surgery with small sip of water. Dr. Ferrera office notified patient needs a pre operative EKG done. documented in this encounter [facility] Discharge instructions 12-01-2022 Discharge Instructions Note Date & Type Note Facility 12-01-2022 Hospital Discharg e instructions Elvira Scherer, DO - 12/01/2022 9:38 AM EDT SAME DAY SURGERY DISCHARGE INSTRUCTIONS 1. Do not drive or operate hazardous machinery for 24 hours. 2. Do not make important personal or business decisions for 24 hours. 3. Do not drink alcoholic beverages for 24 hours. 4. Do not smoke tobacco products for 24 hours. 5. Limit your activities for 24 hours. Do not engage in heavy work until your surgeon gives you permission. 6. Patient should not be left alone for 12-24 hours following surgical procedure. 7. Wash hands before and after incision care. It is important to practice good personal hygiene during the post op period. 8. Report the following signs or any questions regarding your physical condition to your surgeon immediately: Excessive swelling of, or around the wound area. Redness. Temperature of 100 degrees (F) or above. Excessive pain. 9. Call your surgeon for any questions regarding your surgery. CATARACT DISCHARGE INSTRUCTIONS Do not remove eye patch/shield today. Protect the operated eye during sleep by covering it with clear plastic shield. Tape the shield securely to the face before retiring . Do this for one week after surgery. Avoid bumping the operated eye during the daytime. Sensitivity to light and watering of the eye is normal during the first month. Wearing of dark glasses will help these symptoms and this is optional. Minor crusting and discharge adherent to the lid margins will persist till the incision heals. Cleanse the lids by application of a warm compress several times a day as needed. Use of either the operated eye or unoperated eye is not harmful. Until the new glasses are prescribed, the operated eye may be out of focus and may not see details clearly. Vision maybe clearer in the operated eye without glasses. You may do everything necessary to care for yourself, including hair care, tooth brushing, dressing, etc. Light work,including stooping over and lifting, is not harmful. Please phone if any problems arise during the healing period. The office number is [phone]. Take surgery bag and all eye drops to Dr. Scherer's office tomorrow at 8:50am. You may resume your normal diet. Start your eye drops tomorrow after your post-op appointment: Ofloxacin/Polytrim one drop to the operated eye 4 times daily Prednisolone one drop to the operated eye 4 times daily documented in this encounter [facility] Evaluation note Note Date & Type Note Facility Evaluation note Diagnosis Age-related nuclear cataract of left eye- Primary Senile nuclear sclerosis documented in this encounter [facility] Evaluation note Note Date & Type Note Facility Evaluation note Diagnosis Age-related nuclear cataract of right eye- Primary Senile nuclear sclerosis documented in this encounter [facility] Summary Purpose Family History No Family History Records FoundNo Family History Records FoundNo Family History Records FoundNo Family History Records FoundNo Family History Records FoundNo Family History Records FoundNo Family History Records Found Advance Directives No Advanced Directives Records FoundLatest Code Status on File Code Status Date Activated Date Inactivated Comments Full Code 12/01/2022 8:08 AM Code Status History Code Status Date Activated Date Inactivated Comments Full Code 10/22/2018 11:13 PM 10/26/2018 6:13 PM Latest Code Status on File Code Status Date Activated Date Inactivated Comments Full Code 01/19/2023 9:38 AM Code Status History Code Status Date Activated Date Inactivated Comments Full Code 12/01/2022 8:08 AM 12/01/2022 12:28 PM Full Code 10/22/2018 11:13 PM 10/26/2018 6:13 PM Additional Source Comments INFORMATION SOURCE (unrecogn ized section and content) DATE CREATED AUTHOR 11/30/2017 [facility] DATE CREATED AUTHOR AUTHOR'S ORGANIZ ATION 01/19/2019 [facility] DATE CREATED AUTHOR AUTHOR'S ORGANIZ ATION 04/13/2021 [facility] DATE CREATED AUTHOR AUTHOR'S ORGANIZ ATION 08/26/2021 [facility] DATE CREATED AUTHOR AUTHOR'S ORGANIZ ATION 09/14/2022 [facility] DATE CREATED AUTHOR AUTHOR'S ORGANIZ ATION 01/22/2023 [facility] DATE CREATED AUTHOR AUTHOR'S ORGANIZ ATION 06/04/2023 [facility] Reason for Visit (unrecogniz ed section and content) Specialty Diagnoses / Procedures Referred By Mo garza Referred To Contact Diagnoses Age-related nuclear cataract of left eye AGE-RELATED NUCLEAR CAT 3+ NS, 1+PSC Procedures MS XCAPSL CTRC RMVL INSJ IO LENS PROSTH W/O ECP EYE CATARACT EMULSIFICATION IOL IMPLANT Elvira Scherer, DO [address] [place] [address] [facility] [id number] [place] [id number] Referral ID Status Reason Start Date Expiration Date Visits Re quested Visits Authorized [id number] 1 1 Specialty Diagnoses / Procedures Referred By Mo garza Referred To Contact Diagnoses 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 [H25.811] Procedures MS XCAPSL CTRC RMVL INSJ IO LENS PROSTH W/O ECP EYE CATARACT EMULSIFICATION IOL IMPLANT Elvira Scherer, DO [address] [place] [address] [facility] [address] [place] [address] Referral ID Status Reason Start Date Expiration Date Visits Re quested Visits Authorized [id number] 1 1 Scheduled Active and Recently Administ ered Medications (unrecognized section and content) Medication Order 11/29/2022 11/30/2022 12/01/2022 phenylephrine (MYDFRIN) 2.5 % ophthalmic solution 1 drop 1 drop, Left Eye, SEE ADMIN INSTRUCTIONS, Starting on Thu12/01/22 at 0809, Until Discontinued, To operative eye(s) for 3-5 doses every 5 minutes, starting 30 minutes prior to surgery until dilated, [facility] - enter number of doses based on parameters defined by the physician in the admin. comments., Pre-op (day of surgery) 0829 (Given - Provid er: Lorena Lee RN)0837 (Given - Provider: Lorena Lee RN)0847 (Given - Provider: Lorena Lee RN) proparacaine (ALCAINE) 0.5 % ophthalmic solution 1 drop 1 drop, Left Eye, SEE ADMIN INSTRUCTIONS, Starting on Thu12/01/22 at 0807, Until Discontinued, Into the operative eye(s) every 5 minutes for PRN doses starting 30 minutes prior to surgery., Pre-op (day of surgery) 0828 (Given - Provid er: Lorena Lee RN)0836 (Given - Provider: Lorena Lee RN)0846 (Given - Provider: Lorena Lee RN) sodium chloride flush 0.9 % injection 5-40 mL 5-40 mL, IntraVENous, EVERY 12 HOURS SCHEDULED (2 times per day), First dose on Thu12/01/22 at 1000, Until Discontinued, For Line Patency: Peripheral IV = 5 mL; Midline or Central Line = 10 mL/lumen. If following IV push medication, administer flush at same rate as the IV push. Flush volume is determined by type of infusion therapy being given. For non-viscous solutions use: Peripheral IV = 5 mL Midline or Central Line = 10 mL/lumen For viscous solutions (i.e. blood components, parenteral nutrition, contrast media, or after obtaining blood sample) use: Peripheral IV = 10 mL Midline or Central Line = 20 mL/lumen, Post-op 1000 (Due)2100 (Due) sodium chloride flush 0.9 % injection 5-40 mL 5-40 mL, IntraVENous, EVERY 12 HOURS SCHEDULED (2 times per day), First dose on Thu12/01/22 at 0900, Until Discontinued, For Line Patency: Peripheral IV = 5 mL; Midline or Central Line = 10 mL/lumen. If following IV push medication, administer flush at same rate as the IV push. Flush volume is determined by type of infusion therapy being given. For non-viscous solutions use: Peripheral IV = 5 mL Midline or Central Line = 10 mL/lumen For viscous solutions (i.e. blood components, parenteral nutrition, contrast media, or after obtaining blood sample) use: Peripheral IV = 10 mL Midline or Central Line = 20 mL/lumen, Pre-op (day of surgery) 0900 (Due)2100 (Due) tetracaine (TETRAVISC) 0.5 % ophthalmic solution 1 drop 1 drop, Left Eye, SEE ADMIN INSTRUCTIONS, Starting on Thu12/01/22 at 0807, Until Discontinued, Into the operative eye(s) every 5 minutes for PRN doses starting 30 minutes prior to surgery., Pre-op (day of surgery) 0904 (Given - Provid er: Scot Bryant RN) tropicamide (MYDRIACYL) 1 % ophthalmic solution 1 drop 1 drop, Left Eye, SEE ADMIN INSTRUCTIONS, Starting on Thu12/01/22 at 0807, Until Discontinued, To operative eye(s) for 3-5 doses every 5 minutes, starting 30 minutes prior to surgery until dilated, [facility]Ph - enter number of doses based on parameters defined by the physician in the admin. comments., Pre-op (day of surgery) 0830 (Given - Provid er: Lorena Lee RN)0837 (Given - Provider: Lorena Lee RN)0847 (Given - Provider: Lorena Lee RN) Continuous Medication Order 11/29/2022 11/30/2022 12/01/2022 0.9 % sodium chloride infusion IntraVENous, at 125 mL/hr, CONTINUOUS, Starting on Thu12/01/22 at 0830, Pre-op (day of surgery) 0830 (Due) lactated ringers IV soln infusion IntraVENous, at 100 mL/hr, CONTINUOUS, Starting on Thu12/01/22 at 0830, Pre-op (day of surgery) 0846 (New Bag - Prov ider: Lorena Lee RN)1005 (Stopped - Provider: Kadie Mckinney RN) PRN Medication Order 11/29/2022 11/30/2022 12/01/2022 0.9 % sodium chloride infusion IntraVENous, at 5-250 mL/hr, PRN, if patient receiving piggyback infusions and maintenance fluids are not ordered OR KVO fluids to protect IV site / prevent frequent line interruptions/ long duration, Starting on Thu12/01/22 at 0940, For piggyback infusion, administer at same rate as piggyback for a total of 25 mL. Enter 25 mL into dose field and piggyback rate into rate field of order. If piggyback is infusing at a rate less than 100 mL/hr, enter 25 mL into dose field and 100 mL/hr into rate field of order. For KVO fluids, enter rate of 20 mL/hr or less into rate field of order., Post-op 0.9 % sodium chloride infusion IntraVENous, at 5-250 mL/hr, PRN, if patient receiving piggyback infusions and maintenance fluids are not ordered OR KVO fluids to protect IV site / prevent frequent line interruptions/ long duration, Starting on Thu12/01/22 at 0807, For piggyback infusion, administer at same rate as piggyback for a total of 25 mL. Enter 25 mL into dose field and piggyback rate into rate field of order. If piggyback is infusing at a rate less than 100 mL/hr, enter 25 mL into dose field and 100 mL/hr into rate field of order. For KVO fluids, enter rate of 20 mL/hr or less into rate field of order., Pre-op (day of surgery) balanced salts (BSS) 500 mL, EPINEPHrine 0.5 mg (CANCELED) PRN, Starting on Thu12/01/22 at 0916, Intra-op 0916 (Given - Provid er: Elvira Scherer DO) lidocaine PF 1 % injection (CANCELED) PRN, Starting on Thu12/01/22 at 0916, Until Thu12/01/22 at 0932, Intra-op 0916 (Given - Provid er: Elvira Scherer DO) sodium chloride flush 0.9 % injection 5-40 mL 5-40 mL, IntraVENous, PRN, Starting on Thu12/01/22 at 0940, Until Discontinued, Line Care, After every IV line use, For Line Patency: Peripheral IV = 5 mL; Midline or Central Line = 10 mL/lumen. If following IV push medication, administer flush at same rate as the IV push. Flush volume is determined by type of infusion therapy being given. For non-viscous solutions use: Peripheral IV = 5 mL Midline or Central Line = 10 mL/lumen For viscous solutions (i.e. blood components, parenteral nutrition, contrast media, or after obtaining blood sample) use: Peripheral IV = 10 mL Midline or Central Line = 20 mL/lumen, Post-op sodium chloride flush 0.9 % injection 5-40 mL 5-40 mL, IntraVENous, PRN, Starting on Thu12/01/22 at 0807, Until Discontinued, Line Care, After every IV line use, For Line Patency: Peripheral IV = 5 mL; Midline or Central Line = 10 mL/lumen. If following IV push medication, administer flush at same rate as the IV push. Flush volume is determined by type of infusion therapy being given. For non-viscous solutions use: Peripheral IV = 5 mL Midline or Central Line = 10 mL/lumen For viscous solutions (i.e. blood components, parenteral nutrition, contrast media, or after obtaining blood sample) use: Peripheral IV = 10 mL Midline or Central Line = 20 mL/lumen, Pre-op (day of surgery) tetracaine (TETRAVISC) 0.5 % ophthalmic solution (CANCELED) PRN, Starting on Thu12/01/22 at 0916, Until Thu12/01/22 at 0932, Intra-op 0916 (Given - Provid er: Elvira Scherer DO) Scheduled Medication Order 01/17/2023 01/18/2023 01/19/2023 phenylephrine (MYDFRIN) 2.5 % ophthalmic solution 1 drop 1 drop, Right Eye, SEE ADMIN INSTRUCTIONS, Starting on Thu01/19/23 at 0938, Until Discontinued, To operative eye(s) for 3-5 doses every 5 minutes, starting 30 minutes prior to surgery, RPh - enter number of doses based on parameters defined by the physician in the admin. comments., Pre-op (day of surgery) 0957 (Given - Provid er: Annabelle Oneal RN)1002 (Given - Provider: Annabelle Oneal RN)1011 (Given - Provider: Annabelle Oneal RN) proparacaine (ALCAINE) 0.5 % ophthalmic solution 1 drop 1 drop, Right Eye, SEE ADMIN INSTRUCTIONS, Starting on Thu01/19/23 at 0938, Until Discontinued, Into the operative eye(s) every 5 minutes for PRN doses starting 30 minutes prior to surgery., Pre-op (day of surgery) 0957 (Given - Provid er: Annabelle Oneal RN)1002 (Given - Provider: Annabelle Oneal RN)1011 (Given - Provider: Annabelle Oneal RN) sodium chloride flush 0.9 % injection 5-40 mL 5-40 mL, IntraVENous, EVERY 12 HOURS SCHEDULED (2 times per day), First dose on Thu01/19/23 at 1000, Until Discontinued, For Line Patency: Peripheral IV = 5 mL; Midline or Central Line = 10 mL/lumen. If following IV push medication, administer flush at same rate as the IV push. Flush volume is determined by type of infusion therapy being given. For non-viscous solutions use: Peripheral IV = 5 mL Midline or Central Line = 10 mL/lumen For viscous solutions (i.e. blood components, parenteral nutrition, contrast media, or after obtaining blood sample) use: Peripheral IV = 10 mL Midline or Central Line = 20 mL/lumen, Pre-op (day of surgery) 1017 (Not Given - Pr ovider: Annabelle Oneal RN - Reason: IV Fluid Infusing)2100 (Due) sodium chloride flush 0.9 % injection 5-40 mL 5-40 mL, IntraVENous, EVERY 12 HOURS SCHEDULED (2 times per day), First dose on Thu01/19/23 at 1115, Until Discontinued, For Line Patency: Peripheral IV = 5 mL; Midline or Central Line = 10 mL/lumen. If following IV push medication, administer flush at same rate as the IV push. Flush volume is determined by type of infusion therapy being given. For non-viscous solutions use: Peripheral IV = 5 mL Midline or Central Line = 10 mL/lumen For viscous solutions (i.e. blood components, parenteral nutrition, contrast media, or after obtaining blood sample) use: Peripheral IV = 10 mL Midline or Central Line = 20 mL/lumen, Post-op 1115 (Due)2100 (Due) tetracaine (TETRAVISC) 0.5 % ophthalmic solution 1 drop 1 drop, Right Eye, SEE ADMIN INSTRUCTIONS, Starting on Thu01/19/23 at 0938, Until Discontinued, Into the operative eye(s) every 5 minutes for PRN doses starting 30 minutes prior to surgery., Pre-op (day of surgery) tropicamide (MYDRIACYL) 1 % ophthalmic solution 1 drop 1 drop, Right Eye, SEE ADMIN INSTRUCTIONS, Starting on Thu01/19/23 at 0938, Until Discontinued, To operative eye(s) for 3-5 doses every 5 minutes, starting 30 minutes prior to surgery, [facility] - enter number of doses based on parameters defined by the physician in the admin. comments., Pre-op (day of surgery) 0957 (Given - Provid er: Annabelle Oneal RN)1002 (Given - Provider: Annabelle Oneal RN)1011 (Given - Provider: Annabelle Oneal RN) Continuous Medication Order 01/17/2023 01/18/2023 01/19/2023 0.9 % sodium chloride infusion IntraVENous, at 125 mL/hr, CONTINUOUS, Starting on Thu01/19/23 at 1000, Pre-op (day of surgery) 1017 (Not Given - Pr ovider: Annabelle Oneal RN - Reason: IV Fluid Infusing) lactated ringers IV soln infusion IntraVENous, at 100 mL/hr, CONTINUOUS, Starting on Thu01/19/23 at 1000, Pre-op (day of surgery) 1012 (New Bag - Prov ider: Annabelle Oneal RN)1025 (Paused - Provider: PILI Colmenares CRNA - Comment: Switch to gravity)1026 (Restarted - Provider: PILI Colmenares CRNA)1051 (Stopped - Provider: PILI Colmenares CRNA) PRN Medication Order 01/17/2023 01/18/2023 01/19/2023 0.9 % sodium chloride infusion IntraVENous, at 5-250 mL/hr, PRN, if patient receiving piggyback infusions and maintenance fluids are not ordered OR KVO fluids to protect IV site / prevent frequent line interruptions/ long duration, Starting on Thu01/19/23 at 0938, For piggyback infusion, administer at same rate as piggyback for a total of 25 mL. Enter 25 mL into dose field and piggyback rate into rate field of order. If piggyback is infusing at a rate less than 100 mL/hr, enter 25 mL into dose field and 100 mL/hr into rate field of order. For KVO fluids, enter rate of 20 mL/hr or less into rate field of order., Pre-op (day of surgery) 0.9 % sodium chloride infusion IntraVENous, at 5-250 mL/hr, PRN, if patient receiving piggyback infusions and maintenance fluids are not ordered OR KVO fluids to protect IV site / prevent frequent line interruptions/ long duration, Starting on Thu01/19/23 at 1059, For piggyback infusion, administer at same rate as piggyback for a total of 25 mL. Enter 25 mL into dose field and piggyback rate into rate field of order. If piggyback is infusing at a rate less than 100 mL/hr, enter 25 mL into dose field and 100 mL/hr into rate field of order. For KVO fluids, enter rate of 20 mL/hr or less into rate field of order., Post-op balanced salts (BSS) 500 mL, EPINEPHrine 0.5 mg (CANCELED) PRN, Starting on Thu01/19/23 at 1034, Intra-op 1034 (Given - Provid er: Elvira Scherer DO) lidocaine PF 1 % injection (CANCELED) PRN, Starting on Thu01/19/23 at 1034, Until Thu01/19/23 at 1047, Intra-op 1034 (Given - Provid er: Elvira Scherer DO) sodium chloride flush 0.9 % injection 5-40 mL 5-40 mL, IntraVENous, PRN, Starting on Thu01/19/23 at 0938, Until Discontinued, Line Care, After every IV line use, For Line Patency: Peripheral IV = 5 mL; Midline or Central Line = 10 mL/lumen. If following IV push medication, administer flush at same rate as the IV push. Flush volume is determined by type of infusion therapy being given. For non-viscous solutions use: Peripheral IV = 5 mL Midline or Central Line = 10 mL/lumen For viscous solutions (i.e. blood components, parenteral nutrition, contrast media, or after obtaining blood sample) use: Peripheral IV = 10 mL Midline or Central Line = 20 mL/lumen, Pre-op (day of surgery) sodium chloride flush 0.9 % injection 5-40 mL 5-40 mL, IntraVENous, PRN, Starting on Thu01/19/23 at 1059, Until Discontinued, Line Care, After every IV line use, For Line Patency: Peripheral IV = 5 mL; Midline or Central Line = 10 mL/lumen. If following IV push medication, administer flush at same rate as the IV push. Flush volume is determined by type of infusion therapy being given. For non-viscous solutions use: Peripheral IV = 5 mL Midline or Central Line = 10 mL/lumen For viscous solutions (i.e. 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 This clinical summary was aggregated from multiple sources. Caution should be exercised in using it in the provision of clinical care. This summary normalizes information from multiple sources, and as a consequence, information in this document may materially change the coding, format and clinical context of patient data. In addition, data may be omitted in some cases. CLINICAL DECISIONS SHOULD BE BASED ON THE PRIMARY CLINICAL RECORDS. [employer] provides no warranty or guarantee of the accuracy or completeness of information in this document.
== END 2023-10-07 07:56 | disposition home or self-care (01) ==
LOC: CT 07:55
PROVIDERS: PCP Family Medicine; Visit Provider Family Medicine
DX: R91.1 Solitary pulmonary nodule (principal); R91.8 Other nonspecific abnormal finding of lung field
CPT/HCPCS: 71250

== ENCOUNTER 2024-03-01 08:27 | Outpatient (OUT) | payer BC, SELFPAY ==
--- NOTE | 2024-03-01 | XR_ITS ---
The [address] [address] Patient Name: LOU MCGUIRE MRN: [id number] date: 1960 Sex: F Assigned Patient Location: RAD Current Patient Location: RAD Accession/Order Number: [id number] Exam Date: 03/01/2024 08:32 Report Date: 03/01/2024 12:07 At the request of: RYAN LEMOS Procedure: XR chest 2V PROCEDURE: XR chest 2V DATE: 03/01/2024 7:32 AM CDT COMPARISONS: Chest CT 10/07/2023. Chest x-ray 2020 CLINICAL INDICATION: 63 years Female Abnormal Findings On Diagnostic Imaging R93.89 FINDINGS: The cardiomediastinal silhouette and pulmonary vasculature are within normal limits. Coarse increased interstitial markings are noted throughout all lung naylor similar to recent CT. The findings are consistent with prominent chronic lung changes. The nodularity identified on that CT cannot be identified on plain radiographs. CT is more sensitive in this regard. There is no evidence of pleural effusion or pneumothorax. XR/XR chest 2V IMPRESSION: Chronic lung changes. Stable chest. Electronically authenticated by: AZ MARTE Date: 03/01/2024 12:07
--- OUTSIDE RECORDS SUMMARY | 2024-03-01 08:33 | XMS_ITS | CCD ---
Author Organization [facility] Care Team Providers Care Councilor Name Role Phone KEL BUENO Unavailable Unavailable RYAN AREVALO Unavailable Unavailable ALENID, AURORA HUSSAM Unavailable Unavailabl e RACHELE POST Unavailable Unavailable IA Unavailable Unavailable UNKNOWN, PROVIDER Unavailable Unavailable MEERA ROJAS Consulting Unavailable RYAN AREVALO Primary Care Unavailable AHMED, KARENED S Admitting Unavailable AHMED, MOHAMMED S [...] Unavailable HOY ., DR DAVIS Consulting Unavailable WILKES BARRE, DR MEERA Maria Consulting Unavailable BILLY, DR CORINA Nichole Consulting Unavailable Ryan Arevalo MD Primary Care Provider [phone] RYAN AREVALO Primary Care Unavailable ELVIRA [...] (Original) docusate sodium 50 mg / sennosides, custodial 8.6 mg oral tablet (1 source) Start: [...] disease (1 source) Atherosclerotic heart disease of [place] coronary artery with unstable angina pectoris; Translations: [ATHSCL HEART DISEASE OF [place] COR ART W UNSTABLE ANG PCTRS] Onset: [...] bone density and structure, left thigh; Translations: [OT D/O BONE DEN STRUCT LT THIGH] Onset: 08-19-2022 Episodic Other screening for suspected conditions (not mental disorders or infectious disease) (1 source) Encounter for screening mammogram for malignant neoplasm of breast; Translations: [ENC SCR MAMMO MALIG NEOPLASM BREAST] Onset: 08-19-2022 Episodic Spondylosis; intervertebral disc disorders; other back problems (1 source) Other intervertebral disc degeneration, lumbar region; Translations: [OT IV DISC DEGEN LUMBAR REGION] Onset: 08-19-2022 [...] Facility CNCOon 06-02-2023 CNCO Letter Text Normal [facility] CNPNon 06-02-2023 CNPN Telephone (CARDMN) DACIA FINLEY ([id number]) 1960 F Date Time Provider Department 06/02/23 CELIA MATOS ([facility]) CARDMN During your visit today, we recorded [...] Status:Closed by CELIA LILLY on 06/02/23 Normal [facility] FREE T3on 09-09-2022 FREE T3 3.53 pg/mlL Normal 2.18-3.98 [facility] Comment on above: Performed By: #### T 4, FT3, TSH #### [facility] [address] [place] [address] Dr. Guevara Abraham T4on 09-09-2022 T4 [Mass/Vol] 10.20 ug/dL Normal 4.80-13.90 [facility] Comment on above: Performed By: #### T 4, FT3, TSH #### [facility] [address] [place] [address] Dr. Guevara Abraham TSHon 09-09-2022 TSH 7.509 uIU/mL Critically high 0.358-3.74 0 [facility] Comment on above: Performed By: #### T 4, FT3, TSH #### [facility] [address] [place] [address] Dr. Guevara Abraham OCC BLD IMMUNO SCREENon 08-06 OCCULT BLOOD Negative Normal NEGATIVE [facility] Comment on above: Performed By: #### A NAIFA #### [facility] [address] [place] [address] Dr. Guevara Abraham CODI by IFAon 08-19-2022 Antinuclear Antibodies, IFA Negative Normal [facility] Comment on above: Result Comment: Nega tive <1:80 Borderline 1:80 Positive >1:80 ICAP nomenclature: AC-0 For more information about Hep-2 cell patterns use ANApatterns.org, the official website for the International Consensus on Antinuclear Antibody (CODI) Patterns (ICAP). Performed By: #### A NAIFA #### [facility] [address] [place] [address] Dr. Guevara Abraham ANTISTREPTOLYSIN O AB (ASO)o n 08-16-2022 Antistreptolysin O Ab 248.1 IU/mL Critically high 0.0-200.0 [facility] Comment on above: Performed By: #### A SOAB #### [facility] [address] [place] [address] Dr. Guevara Abraham C-REACTIVE PROTEINS (HS)on 0 08-16-2022 C-Reactive Protein, Cardiac 0.32 mg/L Normal 0.00-3.00 [facility] Comment on above: Result Comment: Rela tive Risk for Future Cardiovascular Event Low <1.00 Average 1.00 - 3.00 High >3.00 Performed By: #### C RPHS #### [facility] [address] [place] [address] Dr. Guevara Abraham INSULINon 08-16-2022 Insulin 11.3 uIU/mL Normal 2.6-24.9 [facility] Comment on above: Performed By: #### I NSULIN ####[facility] [address] [place], [place] [address]DrCain Abraham RHEUMATOID FACTORon 08-17-19 23 RA Latex Turbid. <10.0 Normal <14.0 [facility] Comment on above: Performed By: #### R F #### [facility] [address] [place] [address] Dr. Guevara Abraham CBC AUTO DIFFon 08-15-2022 BASO # 0.1 103/ul Normal 0.0-0.1 [facility] Comment on above: Performed By: #### C BC ####[facility] [address] [place], [place] [address]Dr. Guevara Abraham Basophils/100 WBC (Bld) 0.6 % Normal 0.2-2.0 [facility] Comment on above: Performed By: #### C BC ####[facility] [address] [place], [place] [address]DrCain Abraham EO # 0.2 103/ul Normal 0.0-0.7 [facility] Comment on above: Performed By: #### C BC ####[facility] [address] [place], [place] [address]DrCain Abraham Eosinophils/100 WBC (Bld) 1.9 % Normal 0.9-7.0 [facility] Comment on above: Performed By: #### C BC ####[facility] [address] [place], [place] [address]DrCain Abraham Erythrocyte distribution width (RBC) [Ratio] 12.8 % Normal 11.0-15.0 [facility] Comment on above: Performed By: #### C BC ####[facility] [address] [place] [address]Dr. Zabrinameño Abraham Hematocrit (Bld) [Volume fraction] 43.1 % Normal 36.0-48.0 [facility] Comment on above: Performed By: #### C BC ####[facility] [address] [place] [address]Dr. Guevara Abraham Hemoglobin (Bld) [Mass/Vol] 14.5 g/dL Normal 12.0-16.0 [facility] Comment on above: Performed By: #### C BC ####[facility] [address] [place], [place] [address]Dr. Guevara Abraham IG # 0.03 10e3/ul Normal 0.00-0.03 [facility] Comment on above: Performed By: #### C BC ####[facility] [address] [place], [place] [address]Dr. Guevara Abraham IG % 0.3 % Normal 0.0-0.5 [facility] Comment on above: Performed By: #### C BC ####[facility] [address] [place], [place] [address]Dr. Guevara Abraham LYMPH # 3.3 103/ul Normal 1.2-3.8 [facility] Comment on above: Performed By: #### C BC ####[facility] [address] [place], [place] [address]Dr. Guevara Abraham Lymphocytes/100 WBC (Bld) 34.2 % Normal 20.5-60.0 [facility] Comment on above: Performed By: #### C BC ####[facility] [address] [place] [address]Dr. Guevara Abraham MANUAL DIFF REQ NO Normal [facility] Comment on above: Performed By: #### C BC ####[facility] [address] [place], [place] [address]DrCain Abraham MCH (RBC) [Entitic mass] 31.4 pg Normal 26.7-34.0 [facility] Comment on above: Performed By: #### C BC ####[facility] [address] [place], [place] [address]Dr. Guevara Abraham MCHC (RBC) [Mass/Vol] 33.6 g/dL Normal 29.9-35.2 [facility] Comment on above: Performed By: #### C BC ####[facility] [address] [place] [id number]. Guevara Abraham MCV (RBC) [Entitic vol] 93.3 fL Normal 81.0-99.0 [facility] Comment on above: Performed By: #### C BC ####[facility] [address] [place], [place] [address]Dr. Guevara Abraham MONO # 0.7 103/ul Normal 0.3-0.8 [facility] Comment on above: Performed By: #### C BC ####[facility] [address] [place], [place] [address]Dr. Guevara Abraham Monocytes/100 WBC (Bld) 7.3 % Normal 1.7-12.0 [facility] Comment on above: Performed By: #### C BC ####[facility] [address] [place], [place] [address]Dr. Guevara Abraham NEUT # 5.3 103/ul Normal 1.4-6.5 [facility] Comment on above: Performed By: #### C BC ####[facility] [address] [place], [place] [address]Dr. Guevara Abraham Neutrophils/100 WBC (Bld) 55.7 % Normal 43.0-75.0 [facility] Comment on above: Performed By: #### C BC ####[facility] [address] [place], [place] [address]Dr. Guevara Abraham Platelet mean volume (Bld) [Entitic vol] 11.5 fL Normal 9.5-13.5 [facility] Comment on above: Performed By: #### C BC ####[facility] [address] [place], [place] [address]Dr. Guevara Abraham PLT 211 103/ul Normal 150-450 [facility] Comment on above: Performed By: #### C BC ####[facility] [address] [place], [place] [address]Dr. Guevara Abraham RBC 4.62 106/ul Normal 4.20-5.40 [facility] Comment on above: Performed By: #### C BC ####[facility] [address] [place], [place] [address]Ck. Guevara Abraham WBC 9.5 103/ul Normal 4.0-11.0 [facility] Comment on above: Performed By: #### C BC ####[facility] [address] [place] [id number]. Guevara Abraham CRPon 08-15-2022 CRP [Mass/Vol] mg/L Normal <=1.0 [facility] Comment on above: Performed By: #### C RP, T7, CMP, URIC, LIPID, TSH ####[facility] [address] [place], [place] [address]Yl. G[address] CT LUNG CANCER SCREENINGon 0 [...] CORINA CERVANTES Date: 2022-08-15 09:25 Normal [facility] FREE THYROXINE INDEX T7on FTI 3.00 Normal 1.30-4.50 [facility] Comment on above: Performed By: #### C RP, T7, CMP, URIC, LIPID, TSH ####[facility] [address] [place] [id number]. Guevara Abraham T3U 33.0 % Normal 30.0-39.0 [facility] Comment on above: Performed By: #### C RP, T7, CMP, URIC, LIPID, TSH ####[facility] [address] [place] [address]Dr. Guevara Abraham T4 [Mass/Vol] 9.10 ug/dL Normal 4.80-13.90 [facility] Comment on above: Performed By: #### C RP, T7, CMP, URIC, LIPID, TSH ####[facility] [address] [place] [address]DrCain Abraham GLYCOHEMOGLOBIN A1Con 2022 ADA RECOMMENDATION SEE BELOW Normal [facility] Comment on above: Result Comment: ADA RECOMMENDED LIMIT 4.0 - 6.0 ADA THERAPEUTIC TARGET < 7.0 ACTION SUGGESTED > 7.0 Performed By: #### A 1C ####[facility] [address] [place] [address]Dr. Guevara Abraham Glucose [Mass/Vol] 120 mg/dL Normal [facility] Comment on above: Performed By: #### A 1C ####[facility] [address] [place] [address]Dr. Guevara Abraham HbA1c (Bld) [Mass fraction] 5.8 % Normal 4.5-6.2 [facility] Comment on above: Performed By: #### A 1C ####[facility] [address] [place] [address]DrCain Abraham IRONon 08-15-2022 Iron [Mass/Vol] 124.0 ug/dL Normal 50.0-170.0 [facility] Comment on above: Performed By: #### I MIAH #### [facility] [address] [place] [address] [address] Guevara Abraham LIPID PROFILEon 08-15-2022 CHOL-HDL RATIO NORM SEE BELOW Normal [facility] Comment on above: Result Comment: 3.3 - 4.4 LOW RISK 4.4 - 7.1 AVERAGE RISK 7.1 - 11.0 MODERATE RISK >11.0 HIGH RISK Performed By: #### C RP, T7, CMP, URIC, LIPID, TSH ####[facility] [address] [place] [address]Dr. Guevara Abraham Cholesterol [Mass/Vol] 132 mg/dL Normal <=200 [facility] Comment on above: Performed By: #### C RP, T7, CMP, URIC, LIPID, TSH ####[facility] [address] [place] [address]Dr. Guevara Abraham Cholesterol in HDL [Mass/Vol] 44 mg/dL Normal 40-60 [facility] Comment on above: Performed By: #### C RP, T7, CMP, URIC, LIPID, TSH ####[facility] [address] [place] [address]Dr. Guevara Abraham Cholesterol in LDL [Mass/Vol] 70.8 mg/dL Normal [facility] Comment on above: Performed By: #### C RP, T7, CMP, URIC, LIPID, TSH ####[facility] [address] [place] [address]Dr. Guevara Abraham Cholesterol.total /Cholesterol in HDL [Mass ratio] 3.0 {ratio} Normal [facility] Comment on above: Performed By: #### C RP, T7, CMP, URIC, LIPID, TSH ####[facility] [address] [place] [address]Dr. Guevara Abraham HDL NORMAL > or = 60 mg/dl - LO W CARDIOVASCULAR RISK <40 mg/dl - HIGH CARDIOVASCULAR RISK Normal [facility] Comment on above: Performed By: #### C RP, T7, CMP, URIC, LIPID, TSH ####[facility] [address] [place] [address]Dr. Guevara Abraham LDL CALC NORMAL SEE BELOW Normal [facility] Comment on above: Result Comment: <100 mg/dl OPTIMAL 100 - 129 mg/dl NEAR OR ABOVE OPTIMAL 130 - 159 mg/dl BORDERLINE HIGH 160 - 189 mg/dl HIGH >190 mg/dl VERY HIGH Performed By: #### C RP, T7, CMP, URIC, LIPID, TSH ####[facility] [address] [place], [place] [address]Ut. Guevara Abraham Triglyceride [Mass/Vol] 86 mg/dL Normal <=150 [facility] Comment on above: Performed By: #### C RP, T7, CMP, URIC, LIPID, TSH ####[facility] [address] [place], [place] [address]Em. Guevara Abraham VLDL CALC 17.2 mg/dL Normal [facility] Comment on above: Performed By: #### C RP, T7, CMP, URIC, LIPID, TSH ####[facility] [address] [place], [place] [address]Xk. Guevara Abraham MG MAMM SCREEN 3D GRICEL CADon 08-15-2022 MG MAMM SCREEN 3D GRICEL CAD Patient: DACIA FINLEY Exam Date: 08/15/2022 : 1960 Gender:F Ordering : DR RYAN AREVALO . Admission #: [id number] Family : Order #: [id number] CLICK HERE TO VIEW EXAM RADIOLOGY REPORT PROCEDURE: MAMMOGRAM SCREENING 3D BILATERAL CAD COMPARISON: MG MAMM GRICEL SCRN W CAD DIG, 07/04/2015. INDICATIONS: Screening mammography Calculator Name NCI Breast Cancer Risk Assessment Tool 5 Year Breast Cancer Risk Not Reported. Lifetime Breast Cancer Risk Not Reported. Personal Breast Cancer No Personal Ovarian Cancer No Treatments None Family Cancers None LOCATION: [facility] BREAST COMPOSITION: Extremely dense, which lowers [...] MD on 08/15/2022 at 09:49 Normal [facility] PROF 14(COMP METB)on 023 Albumin [Mass/Vol] 3.9 g/dL Normal 3.4-5.0 [facility] Comment on above: Performed By: #### C RP, T7, CMP, URIC, LIPID, TSH ####[facility] [address] [place] [address]Dr. Guevara Abraham Albumin/Globulin [Mass ratio] 1.2 {ratio} Normal [facility] Comment on above: Performed By: #### C RP, T7, CMP, URIC, LIPID, TSH ####[facility] [address] [place] [address]Dr. Guevara Abraham ALP [Catalytic activity/Vol] 66 U/L Normal 46-116 [facility] Comment on above: Performed By: #### C RP, T7, CMP, URIC, LIPID, TSH ####[facility] [address] [place] [address]Dr. Guevara Abraham ALT [Catalytic activity/Vol] 22 U/L Normal 14-59 [facility] Comment on above: Performed By: #### C RP, T7, CMP, URIC, LIPID, TSH ####[facility] [address] [place] [address]Dr. Guevara Abraham Anion gap [Moles/Vol] 12.9 mmol/L Normal [facility] Comment on above: Performed By: #### C RP, T7, CMP, URIC, LIPID, TSH ####[facility] [address] [place] [address]Dr. Guevara Abraham AST [Catalytic activity/Vol] 14 U/L Critically low 15-37 [facility] Comment on above: Performed By: #### C RP, T7, CMP, URIC, LIPID, TSH ####[facility] [address] [place] [address]Dr. Guevara Abraham Bilirubin [Mass/Vol] 0.4 mg/dL Normal 0.2-1.0 [facility] Comment on above: Performed By: #### C RP, T7, CMP, URIC, LIPID, TSH ####[facility] [address] [place] [address]Dr. Guevara Abraham Calcium [Mass/Vol] 8.8 mg/dL Normal 8.5-10.1 [facility] Comment on above: Performed By: #### C RP, T7, CMP, URIC, LIPID, TSH ####[facility] [address] [place] [address]Dr. Guveara Abraham Chloride [Moles/Vol] 107 mmol/L Normal 98-107 [facility] Comment on above: Performed By: #### C RP, T7, CMP, URIC, LIPID, TSH ####[facility] [address] [place] [address]Dr. Guevara Abraham CO2 [Moles/Vol] 26.8 mmol/L Normal 21.0-32.0 [facility] Comment on above: Performed By: #### C RP, T7, CMP, URIC, LIPID, TSH ####[facility] [address] [place] [address]Dr. Guevara Abraham Creatinine [Mass/Vol] 0.85 mg/dL Normal 0.55-1.02 [facility] Comment on above: Performed By: #### C RP, T7, CMP, URIC, LIPID, TSH ####[facility] [address] [place] [address]Dr. Guevara Abraham EGFR-AF [place] >60 Normal >=60 [facility] Comment on above: Performed By: #### C RP, T7, CMP, URIC, LIPID, TSH ####[facility] [address] [place] [address]Dr. Guevara Abraham EGFR-NON AF [place] >60 Normal >=60 [facility] Comment on above: Performed By: #### C RP, T7, CMP, URIC, LIPID, TSH ####[facility] [address] [place] [address]Dr. Guevara Abraham Globulin (S) [Mass/Vol] 3.2 g/dL Normal [facility] Comment on above: Performed By: #### C RP, T7, CMP, URIC, LIPID, TSH ####[facility] [address] [place] [address]Dr. Guevara Abraham Glucose [Mass/Vol] 96 mg/dL Normal 74-106 [facility] Comment on above: Performed By: #### C RP, T7, CMP, URIC, LIPID, TSH ####[facility] [address] [place] [address]Dr. Guevara Abraham Potassium [Moles/Vol] 3.7 mmol/L Normal 3.5-5.1 [facility] Comment on above: Performed By: #### C RP, T7, CMP, URIC, LIPID, TSH ####[facility] [address] [place] [address]Dr. Guevara Abraham Protein [Mass/Vol] 7.1 g/dL Normal 6.4-8.2 [facility] Comment on above: Performed By: #### C RP, T7, CMP, URIC, LIPID, TSH ####[facility] [address] [place] [address]Dr. Guevara Abraham Sodium [Moles/Vol] 143 mmol/L Normal 136-145 [facility] Comment on above: Performed By: #### C RP, T7, CMP, URIC, LIPID, TSH ####[facility] [address] [place] [address]Dr. Guevara Abraham Urea nitrogen [Mass/Vol] 13.0 mg/dL Normal 7.0-18.0 [facility] Comment on above: Performed By: #### C RP, T7, CMP, URIC, LIPID, TSH ####[facility] [address] [place] [address]Dr. Guevara Abraham Urea nitrogen/Creatini ne [Mass ratio] 15.3 mg/mg Normal [facility] Comment on above: Performed By: #### C RP, T7, CMP, URIC, LIPID, TSH ####[facility] [address] [place] [address]Dr. Guevara Abraham TSHon 08-15-2022 TSH 5.411 uIU/mL Critically high 0.358-3.74 0 [facility] Comment on above: Performed By: #### C RP, T7, CMP, URIC, LIPID, TSH ####[facility] [address] [place] [address]Dr. Guevara Abraham URIC ACID SERUMon 08-15-2022 Urate [Mass/Vol] 3.1 mg/dL Normal 2.6-6.0 [facility] Comment on above: Performed By: #### C RP, T7, CMP, URIC, LIPID, TSH ####[facility] [address] [place], [place] [address]DjCain Abraham XR DEXA BONE DENSITYon 08-15 XR [...] by: MEERA HODGE Date: 2022-08-15 09:00 Normal [facility] XR LSPINE MIN 4 VIEWSon 08-06 [...] by: CORINA CERVANTES Date: 2022-08-15 09:04 Normal [facility] MR head/brain wo conon 07-19 MR head/brain wo con [facility] [place] [address] MRI Report Signed Patient: Dacia Finley MR#: [id number] : 1960 Acct:[id number] Age/Sex: 60 / F ADM Date: 07/19/21 Loc: [facility] Room: Type: [facility] Attending Dr: Himanshu Acosta DO Ordering Provider: [...] Jack Giles M.D.07/19/2021 1:11 PM Dictation Location: [place] [address] Transcribed By: [facility] 07/19/21 1311 Dictated By: Jack Giles II, MD 07/19/21 1302 Signed By: 07/19/21 1311 Normal [facility] Physician Referralon 021 Physician Referral [id number] Normal [facility] Basic Metabolic Profon 10-26 (cont.) Normal [facility] Comment on above: Result Comment: Aver age GFR for 50-59 years old: 93 mL/min/1.73sq m Chronic Kidney Disease: <60 mL/min/1.73sq m Kidney failure: <15 mL/min/1.73sq m eGFR calculated using average adult body mass. Additional eGFR calculator available at: http://www.[employer]/multiple_crcl_2012.htm Performed By: #### C DP, BMP, CRP, PRCAL #### [facility] [employer] [address] [place] [address] Fine Grader: Sabas Lamb MD Anion gap [Moles/Vol] 9 mmol/L Normal 9-17 [facility] Comment on above: Performed By: #### C DP, BMP, CRP, PRCAL #### [facility] [employer] [address] [place] [address] Fine Grader: Sabas Lamb MD Calcium [Mass/Vol] 8.3 mg/dL Low 8.6-10.4 [facility] Comment on above: Performed By: #### C DP, BMP, CRP, PRCAL #### [facility] [employer] [address] [place] [address] Fine Grader: Sabas Lamb MD Chloride [Moles/Vol] 100 mmol/L Normal 98-107 [facility] Comment on above: Performed By: #### C DP, BMP, CRP, PRCAL #### [facility] [employer] [address] [place] [address] Fine Grader: Sabas Lamb MD CO2 [Moles/Vol] 26 mmol/L Normal 20-31 [facility] Comment on above: Performed By: #### C DP, BMP, CRP, PRCAL #### [employer] [address] [place] [address] Fine Grader: Sabas Lamb MD Creatinine [Mass/Vol] 0.26 mg/dL Low 0.50-0.90 [facility] Comment on above: Performed By: #### C DP, BMP, CRP, PRCAL #### [address] [address] Fine Grader: Sabas Lamb MD GFR, Amer >60 Normal >60 [facility] Comment on above: Performed By: #### C DP, BMP, CRP, PRCAL #### [facility] [employer] [address] [place] [address] Fine Grader: Sabas Lamb MD GFR,non Amer >60 Normal >60 [facility] Comment on above: Performed By: #### C DP, BMP, CRP, PRCAL #### [facility] [employer] [address] [place] [address] Fine Grader: Sabas Lamb MD Glucose [Mass/Vol] 112 mg/dL High 70-99 [facility] Comment on above: Performed By: #### C DP, BMP, CRP, PRCAL #### [address] [address] Fine Grader: Sabas Lamb MD Potassium [Moles/Vol] 3.1 mmol/L Low 3.7-5.3 [facility] Comment on above: Performed By: #### C DP, BMP, CRP, PRCAL #### [facility] [employer] [address] [place] [address] Fine Grader: Sabas Lamb MD Sodium [Moles/Vol] 135 mmol/L Normal 135-144 [facility] Comment on above: Performed By: #### C DP, BMP, CRP, PRCAL #### [facility] [employer] [address] [place] [address] Fine Grader: Sabas Lamb MD Urea nitrogen [Mass/Vol] 6 mg/dL Normal 6-20 [facility] Comment on above: Performed By: #### C DP, BMP, CRP, PRCAL #### [facility] [employer] [address] [place] [address] Fine Grader: Sabas Lamb MD BUN/CRE Ratio NOT REPORTED Normal 9-20 [facility] Comment on above: Performed By: #### C DP, BMP, CRP, PRCAL #### [address] [address] Fine Grader: Sabas Lamb MD Staging: NOT REPORTED Normal [facility] Comment on above: Performed By: #### C DP, BMP, CRP, PRCAL #### [place] [address] Fine Grader: Sabas Lamb MD CBC with Diffon 10-26-2018 Abs. Basophil <0.03 Normal 0.00-0.20 [facility] Comment on above: Performed By: #### C DP, BMP, CRP, PRCAL #### [place] [address] Fine Grader: Sabas Lamb MD Abs.Imm.Granulocy te 0.03 k/uL Normal 0.00-0.30 [facility] Comment on above: Performed By: #### C DP, BMP, CRP, PRCAL #### [place] [address] Fine Grader: Sabas Lamb MD Abs.Neutrophil (Seg) 7.04 k/uL Normal 1.50-8.10 [facility] Comment on above: Performed By: #### C DP, BMP, CRP, PRCAL #### [place] [address] Fine Grader: Sabas Lamb MD Basophils/100 WBC (Bld) 0 % Normal 0-2 [facility] Comment on above: Performed By: #### C DP, BMP, CRP, PRCAL #### [address] [address] Fine Grader: Sabas Lamb MD Eosinophils (Bld) [#/Vol] 0.08 10*3/uL Normal 0.00-0.44 [facility] Comment on above: Performed By: #### C DP, BMP, CRP, PRCAL #### [address] [address] Fine Grader: Sabas Lamb MD Eosinophils/100 WBC (Bld) 1 % Normal 1-4 [facility] Comment on above: Performed By: #### C DP, BMP, CRP, PRCAL #### [place] [address] Fine Grader: Sabas Lamb MD Erythrocyte distribution width (RBC) [Ratio] 12.0 % Normal 11.8-14.4 [facility] Comment on above: Performed By: #### C DP, BMP, CRP, PRCAL #### [place] [address] Fine Grader: Sabas Lamb MD Hematocrit (Bld) [Volume fraction] 32.3 % Low 36.3-47.1 [facility] Comment on above: Performed By: #### C DP, BMP, CRP, PRCAL #### [place] [address] Fine Grader: Sabas Lamb MD Hemoglobin (Bld) [Mass/Vol] 10.5 g/dL Low 11.9-15.1 [facility] Comment on above: Performed By: #### C DP, BMP, CRP, PRCAL #### [facility] [employer] [address] [place] [address] Fine Grader: Sabas Lamb MD Immature granulocytes (Bld) [#/Vol] 0 % Normal 0 [facility] Comment on above: Performed By: #### C DP, BMP, CRP, PRCAL #### [facility] [employer] [address] [place] [address] Fine Grader: Sabas Lamb MD Lymphocytes (Bld) [#/Vol] 1.45 10*3/uL Normal 1.10-3.70 [facility] Comment on above: Performed By: #### C DP, BMP, CRP, PRCAL #### [address] [address] Fine Grader: Sabas Lamb MD Lymphocytes/100 WBC (Bld) 16 % Low 24-43 [facility] Comment on above: Performed By: #### C DP, BMP, CRP, PRCAL #### [place] [address] Fine Grader: Sabas Lamb MD MCH (RBC) [Entitic mass] 31.3 pg Normal 25.2-33.5 [facility] Comment on above: Performed By: #### C DP, BMP, CRP, PRCAL #### [place] [address] Fine Grader: Sabas Lamb MD MCHC (RBC) [Mass/Vol] 32.5 g/dL Normal 28.4-34.8 [facility] Comment on above: Performed By: #### C DP, BMP, CRP, PRCAL #### [address] [address] Fine Grader: Sabas Lamb MD MCV (RBC) [Entitic vol] 96.1 fL Normal 82.6-102.9 [facility] Comment on above: Performed By: #### C DP, BMP, CRP, PRCAL #### [place] [address] Fine Grader: Sabas Lamb MD Monocytes (Bld) [#/Vol] 0.54 10*3/uL Normal 0.10-1.20 [facility] Comment on above: Performed By: #### C DP, BMP, CRP, PRCAL #### [address] [address] Fine Grader: Sabas Lamb MD Monocytes/100 WBC (Bld) 6 % Normal 3-12 [facility] Comment on above: Performed By: #### C DP, BMP, CRP, PRCAL #### [address] [address] Fine Grader: Sabas Lamb MD Neutrophil (Seg) 77 % High 36-65 [facility] Comment on above: Performed By: #### C DP, BMP, CRP, PRCAL #### [address] [address] Fine Grader: Sabas Lamb MD NRBC Automated 0.0 per 100 WBC Normal 0.0 [facility] Comment on above: Performed By: #### C DP, BMP, CRP, PRCAL #### [address] [address] Fine Grader: Sabas Lamb MD Platelet mean volume (Bld) [Entitic vol] 11.7 fL Normal 8.1-13.5 [facility] Comment on above: Performed By: #### C DP, BMP, CRP, PRCAL #### [address] [address] Fine Grader: Sabas Lamb MD Platelets (Bld) [#/Vol] 261 10*3/uL Normal 138-453 [facility] Comment on above: Performed By: #### C DP, BMP, CRP, PRCAL #### [address] [address] Fine Grader: Sabas Lamb MD RBC (Bld) [#/Vol] 3.36 10*6/uL Low 3.95-5.11 [facility] Comment on above: Performed By: #### C DP, BMP, CRP, PRCAL #### [address] [address] Fine Grader: Sabas Lamb MD WBC (Bld) [#/Vol] 9.2 10*3/uL Normal 3.5-11.3 [facility] Comment on above: Performed By: #### C DP, BMP, CRP, PRCAL #### [address] [address] Fine Grader: Sabas Lamb MD Auto Diff Performed NOT REPORTED Normal [facility] Comment on above: Performed By: #### C DP, BMP, CRP, PRCAL #### [address] [address] Fine Grader: Sabas Lamb MD Platelets (Bld) [#/Vol] NOT REPORTED Normal [facility] Comment on above: Performed By: #### C DP, BMP, CRP, PRCAL #### [address] [address] Fine Grader: Sabas Lamb MD RBC morphology finding Nom (Bld) NOT REPORTED Normal [facility] Comment on above: Performed By: #### C DP, BMP, CRP, PRCAL #### [address] [address] Fine Grader: Sabas Lamb MD WBC Morphology NOT REPORTED Normal [facility] Comment on above: Performed By: #### C DP, BMP, CRP, PRCAL #### [address] [address] Fine Grader: Sabas Lamb MD Basic Metabolic Profon 10-25 (cont.) Normal [facility] Comment on above: Result Comment: Aver age GFR for 50-59 years old: 93 mL/min/1.73sq m Chronic Kidney Disease: <60 mL/min/1.73sq m Kidney failure: <15 mL/min/1.73sq m eGFR calculated using average adult body mass. Additional eGFR calculator available at: http://www.[employer]/multiple_crcl_2011.htm Performed By: #### C DP, BMP, CRP, PRCAL #### [facility] [employer] [address] [place] [address] Fine Grader: Sabas Lamb MD Anion gap [Moles/Vol] 9 mmol/L Normal 9-17 [facility] Comment on above: Performed By: #### C DP, BMP, CRP, PRCAL #### [address] [address] Fine Grader: Sabas Lamb MD Calcium [Mass/Vol] 8.5 mg/dL Low 8.6-10.4 [facility] Comment on above: Performed By: #### C DP, BMP, CRP, PRCAL #### [address] [address] Fine Grader: Sabas Lamb MD Chloride [Moles/Vol] 100 mmol/L Normal 98-107 [facility] Comment on above: Performed By: #### C DP, BMP, CRP, PRCAL #### [facility] [address] [place] [address] Fine Grader: Sabas Lamb MD CO2 [Moles/Vol] 28 mmol/L Normal 20-31 [facility] Comment on above: Performed By: #### C DP, BMP, CRP, PRCAL #### [facility] [address] [place] [address] Fine Grader: Sabas Lamb MD Creatinine [Mass/Vol] 0.31 mg/dL Low 0.50-0.90 [facility] Comment on above: Performed By: #### C DP, BMP, CRP, PRCAL #### [facility] [address] [place] [address] Fine Grader: Sabas Lamb MD GFR, Amer >60 Normal >60 [facility] Comment on above: Performed By: #### C DP, BMP, CRP, PRCAL #### [facility] [address] [place] [address] Fine Grader: Sabas Lamb MD GFR,non Amer >60 Normal >60 [facility] Comment on above: Performed By: #### C DP, BMP, CRP, PRCAL #### [address] [address] Fine Grader: Sabas Lamb MD Glucose [Mass/Vol] 111 mg/dL High 70-99 [facility] Comment on above: Performed By: #### C DP, BMP, CRP, PRCAL #### [address] [address] Fine Grader: Sabas Lamb MD Potassium [Moles/Vol] 3.4 mmol/L Low 3.7-5.3 [facility] Comment on above: Performed By: #### C DP, BMP, CRP, PRCAL #### [address] [address] Fine Grader: Sabas Lamb MD Sodium [Moles/Vol] 137 mmol/L Normal 135-144 [facility] Comment on above: Performed By: #### C DP, BMP, CRP, PRCAL #### [facility] [address] [place] [address] Fine Grader: Sabas Lamb MD Urea nitrogen [Mass/Vol] 9 mg/dL Normal 6-20 [facility] Comment on above: Performed By: #### C DP, BMP, CRP, PRCAL #### [facility] [address] [place] [address] Fine Grader: Sabas Lamb MD BUN/CRE Ratio NOT REPORTED Normal -20 [facility] Comment on above: Performed By: #### C DP, BMP, CRP, PRCAL #### [facility] [address] [place] [address] Fine Grader: Sabas Lamb MD Staging: NOT REPORTED Normal [facility] Comment on above: Performed By: #### C DP, BMP, CRP, PRCAL #### [place] [address] Fine Grader: Sabas Lamb MD CBC with Diffon 10-25-2018 Abs. Basophil 0.03 k/uL Normal 0.00-0.20 [facility] Comment on above: Performed By: #### C DP, BMP, CRP, PRCAL #### [place] [address] Fine Grader: Sabas Lamb MD Abs.Imm.Granulocy te 0.05 k/uL Normal 0.00-0.30 [facility] Comment on above: Performed By: #### C DP, BMP, CRP, PRCAL #### [place] [address] Fine Grader: Sabas Lamb MD Abs.Neutrophil (Seg) 10.20 k/uL High 1.50-8.10 [facility] Comment on above: Performed By: #### C DP, BMP, CRP, PRCAL #### [place] [address] Fine Grader: Sabas Lamb MD Basophils/100 WBC (Bld) 0 % Normal 0-2 [facility] Comment on above: Performed By: #### C DP, BMP, CRP, PRCAL #### [place] [address] Fine Grader: Sabas Lamb MD Eosinophils (Bld) [#/Vol] 0.04 10*3/uL Normal 0.00-0.44 [facility] Comment on above: Performed By: #### C DP, BMP, CRP, PRCAL #### [place] [address] Fine Grader: Sabas Lamb MD Eosinophils/100 WBC (Bld) 0 % Low 1-4 [facility] Comment on above: Performed By: #### C DP, BMP, CRP, PRCAL #### [address] [address] Fine Grader: Sabas Lamb MD Erythrocyte distribution width (RBC) [Ratio] 11.9 % Normal 11.8-14.4 [facility] Comment on above: Performed By: #### C DP, BMP, CRP, PRCAL #### [place] [address] Fine Grader: Sabas Lamb MD Hematocrit (Bld) [Volume fraction] 31.5 % Low 36.3-47.1 [facility] Comment on above: Performed By: #### C DP, BMP, CRP, PRCAL #### [place] [address] Fine Grader: Sabas Lamb MD Hemoglobin (Bld) [Mass/Vol] 10.4 g/dL Low 11.9-15.1 [facility] Comment on above: Performed By: #### C DP, BMP, CRP, PRCAL #### [address] [address] Fine Grader: Sabas Lamb MD Immature granulocytes (Bld) [#/Vol] 0 % Normal 0 [facility] Comment on above: Performed By: #### C DP, BMP, CRP, PRCAL #### [address] [address] Fine Grader: Sabas Lamb MD Lymphocytes (Bld) [#/Vol] 0.96 10*3/uL Low 1.10-3.70 [facility] Comment on above: Performed By: #### C DP, BMP, CRP, PRCAL #### [address] [address] Fine Grader: Sabas Lamb MD Lymphocytes/100 WBC (Bld) 8 % Low 24-43 [facility] Comment on above: Performed By: #### C DP, BMP, CRP, PRCAL #### [address] [address] Fine Grader: Sabas Lamb MD MCH (RBC) [Entitic mass] 31.9 pg Normal 25.2-33.5 [facility] Comment on above: Performed By: #### C DP, BMP, CRP, PRCAL #### [address] [address] Fine Grader: Sabas Lamb MD MCHC (RBC) [Mass/Vol] 33.0 g/dL Normal 28.4-34.8 [facility] Comment on above: Performed By: #### C DP, BMP, CRP, PRCAL #### [address] [address] Fine Grader: Sabas Lamb MD MCV (RBC) [Entitic vol] 96.6 fL Normal 82.6-102.9 [facility] Comment on above: Performed By: #### C DP, BMP, CRP, PRCAL #### [address] [address] Fine Grader: Sabas Lamb MD Monocytes (Bld) [#/Vol] 0.75 10*3/uL Normal 0.10-1.20 [facility] Comment on above: Performed By: #### C DP, BMP, CRP, PRCAL #### [address] [address] Fine Grader: Sabas Lamb MD Monocytes/100 WBC (Bld) 6 % Normal 3-12 [facility] Comment on above: Performed By: #### C DP, BMP, CRP, PRCAL #### [address] [address] Fine Grader: Sabas Lamb MD Neutrophil (Seg) 86 % High 36-65 [facility] Comment on above: Performed By: #### C DP, BMP, CRP, PRCAL #### [address] [address] Fine Grader: Sabas Lamb MD NRBC Automated 0.0 per 100 WBC Normal 0.0 [facility] Comment on above: Performed By: #### C DP, BMP, CRP, PRCAL #### [address] [address] Fine Grader: Sabas Lamb MD Platelet mean volume (Bld) [Entitic vol] 11.4 fL Normal 8.1-13.5 [facility] Comment on above: Performed By: #### C DP, BMP, CRP, PRCAL #### [address] [address] Fine Grader: Sabas Lamb MD Platelets (Bld) [#/Vol] 238 10*3/uL Normal 138-453 [facility] Comment on above: Performed By: #### C DP, BMP, CRP, PRCAL #### [address] [address] Fine Grader: Sabas Lamb MD RBC (Bld) [#/Vol] 3.26 10*6/uL Low 3.95-5.11 [facility] Comment on above: Performed By: #### C DP, BMP, CRP, PRCAL #### [address] [address] Fine Grader: Sabas Lamb MD WBC (Bld) [#/Vol] 12.0 10*3/uL High 3.5-11.3 [facility] Comment on above: Performed By: #### C DP, BMP, CRP, PRCAL #### [address] [address] Fine Grader: Sabas Lamb MD Auto Diff Performed NOT REPORTED Normal [facility] Comment on above: Performed By: #### C DP, BMP, CRP, PRCAL #### [facility] [employer] [address] [place] [address] Fine Grader: Sabas Lamb MD Platelets (Bld) [#/Vol] NOT REPORTED Normal [facility] Comment on above: Performed By: #### C DP, BMP, CRP, PRCAL #### [facility] [address] [place] [address] Fine Grader: Sabas Lamb MD RBC morphology finding Nom (Bld) NOT REPORTED Normal [facility] Comment on above: Performed By: #### C DP, BMP, CRP, PRCAL #### [facility] [address] [place] [address] Fine Grader: Sabas Lamb MD WBC Morphology NOT REPORTED Normal [facility] Comment on above: Performed By: #### C DP, BMP, CRP, PRCAL #### [facility] [address] [place] [address] Fine Grader: Sabas Lamb MD Lipid Profileon 10-25-2018 Cholesterol [Mass/Vol] 114 mg/dL Normal <200 [facility] Comment on above: Result Comment: Cholesterol Guidelines: <200 Desirable 200-240 Borderline >240 Undesirable Performed By: #### C DP, BMP, CRP, PRCAL #### [address] [address] Fine Grader: Sabas Lamb MD Cholesterol in HDL [Mass/Vol] 37 mg/dL Low >40 [facility] Comment on above: Result Comment: HDL Guidelines: <40 Undesirable 40-59 Borderline >59 Desirable Performed By: #### C DP, BMP, CRP, PRCAL #### [address] [address] Fine Grader: Sabas Lamb MD Cholesterol in LDL [Mass/Vol] 63 mg/dL Normal 0-130 [facility] Comment on above: Result Comment: LDL Guidelines: <100 Desirable 100-129 Near to/above Desirable 130-159 Borderline >159 Undesirable Direct (measured) LDL and calculated LDL are not interchangeable tests. Performed By: #### C DP, BMP, CRP, PRCAL #### [facility] [employer] [address] [place] [address] Fine Grader: Sabas Lamb MD Cholesterol.total /Cholesterol in HDL [Mass ratio] 3.1 {ratio} Normal <5 [facility] Comment on above: Performed By: #### C DP, BMP, CRP, PRCAL #### [facility] [employer] [address] [place] [address] Fine Grader: Sabas Lamb MD Triglyceride [Mass/Vol] 71 mg/dL Normal <150 [facility] Comment on above: Result Comment: Triglyceride Guidelines: <150 Desirable 150-199 Borderline 200-499 High >499 Very high Based on AHA Guidelines for fasting triglyceride, March 2012. Performed By: #### C DP, BMP, CRP, PRCAL #### [facility] [employer] [address] [place] [address] Fine Grader: Sabas Lamb MD Cholesterol in VLDL [Mass/Vol] NOT REPORTED Normal 1-30 [facility] Comment on above: Performed By: #### C DP, BMP, CRP, PRCAL #### [facility] [address] [place] [address] Fine Grader: Sabas Lamb MD Specimen Rejectionon 019 ----- NOT REPORTED Normal [facility] Comment on above: Performed By: #### C DP, BMP, CRP, PRCAL #### [facility] [address] [place] [address] Fine Grader: Sabas Lamb MD Reason for rejection Unable to perform testing: Specimen mislabeled. Normal [facility] Comment on above: Performed By: #### C DP, BMP, CRP, PRCAL #### [address] [address] Fine Grader: Sabas Lamb MD Source of sample .BLOOD Normal [facility] Comment on above: Performed By: #### C DP, BMP, CRP, PRCAL #### [address] [address] Fine Grader: Sabas Lamb MD Test ordered BMP CDP Normal [facility] Comment on above: Performed By: #### C DP, BMP, CRP, PRCAL #### [address] [address] Fine Grader: Sabas Lamb MD APTTon 10-24-2018 aPTT Coag (Bld) [Time] 26.3 s Normal 20.5-30.5 [facility] Comment on above: Performed By: #### C DP, BMP, CRP, PRCAL #### [address] [address] Fine Grader: Sabas Lamb MD Basic Metabolic Profon 10-24 (cont.) [facility] Comment on above: Result Comment: Aver age GFR for 50-59 years old: 93 mL/min/1.73sq m Chronic Kidney Disease: <60 mL/min/1.73sq m Kidney failure: <15 mL/min/1.73sq m eGFR calculated using average adult body mass. Additional eGFR calculator available at: http://www.[employer].com/multiple_crcl_2012.htm Performed By: #### C DP, BMP, CRP, PRCAL #### [address] [address] Fine Grader: Sabas Lamb MD Anion gap [Moles/Vol] 14 mmol/L Normal 9-17 [facility] Comment on above: Performed By: #### C DP, BMP, CRP, PRCAL #### [address] [id number] Fine Grader: Sabas Lamb MD Calcium [Mass/Vol] 9.1 mg/dL Normal 8.6-10.4 [facility] Comment on above: Performed By: #### C DP, BMP, CRP, PRCAL #### [facility] [address] [place] [address] Fine Grader: Sabas Lamb MD Chloride [Moles/Vol] 101 mmol/L Normal 98-107 [facility] Comment on above: Performed By: #### C DP, BMP, CRP, PRCAL #### [facility] [address] [place] [address] Fine Grader: Sabas Lamb MD CO2 [Moles/Vol] 23 mmol/L Normal 20-31 [facility] Comment on above: Performed By: #### C DP, BMP, CRP, PRCAL #### [facility] [address] [place] [address] Fine Grader: Sabas Lamb MD Creatinine [Mass/Vol] 0.34 mg/dL Low 0.50-0.90 [facility] Comment on above: Performed By: #### C DP, BMP, CRP, PRCAL #### [address] [address] Fine Grader: Sabas Lamb MD GFR, Amer >60 Normal >60 [facility] Comment on above: Performed By: #### C DP, BMP, CRP, PRCAL #### [facility] [address] [place] [address] Fine Grader: Sabas Lamb MD GFR,non Amer >60 Normal >60 [facility] Comment on above: Performed By: #### C DP, BMP, CRP, PRCAL #### [facility] [address] [place] [address] Fine Grader: Sabas Lamb MD Glucose [Mass/Vol] 86 mg/dL Normal 70-99 [facility] Comment on above: Performed By: #### C DP, BMP, CRP, PRCAL #### [facility] [address] [place] [address] Fine Grader: Sabas Lamb MD Potassium [Moles/Vol] 3.9 mmol/L Normal 3.7-5.3 [facility] Comment on above: Performed By: #### C DP, BMP, CRP, PRCAL #### [facility] [address] [place] [address] Fine Grader: Sabas Lamb MD Sodium [Moles/Vol] 138 mmol/L Normal 135-144 [facility] Comment on above: Performed By: #### C DP, BMP, CRP, PRCAL #### [address] [address] Fine Grader: Sabas Lamb MD Urea nitrogen [Mass/Vol] 11 mg/dL Normal 6-20 [facility] Comment on above: Performed By: #### C DP, BMP, CRP, PRCAL #### [address] [address] Fine Grader: Sabas Lamb MD BUN/CRE Ratio NOT REPORTED Normal -20 [facility] Comment on above: Performed By: #### C DP, BMP, CRP, PRCAL #### [facility] [address] [place] [address] Fine Grader: Sabas Lamb MD Staging: NOT REPORTED Normal [facility] Comment on above: Performed By: #### C DP, BMP, CRP, PRCAL #### [facility] [address] [place] [address] Fine Grader: Sabas Lamb MD CBC with Diffon 10-24-2018 Abs. Basophil 0.03 k/uL Normal 0.00-0.20 [facility] Comment on above: Performed By: #### C DP, BMP, CRP, PRCAL #### [address] [address] Fine Grader: Sabas Lamb MD Abs.Imm.Granulocy te 0.05 k/uL Normal 0.00-0.30 [facility] Comment on above: Performed By: #### C DP, BMP, CRP, PRCAL #### [place] [address] Fine Grader: Sabas Lamb MD Abs.Neutrophil (Seg) 12.06 k/uL High 1.50-8.10 [facility] Comment on above: Performed By: #### C DP, BMP, CRP, PRCAL #### [place] [address] Fine Grader: Sabas Lamb MD Basophils/100 WBC (Bld) 0 % Normal 0-2 [facility] Comment on above: Performed By: #### C DP, BMP, CRP, PRCAL #### [address] [address] Fine Grader: Sabas Lamb MD Eosinophils (Bld) [#/Vol] 10*3/uL Normal 0.00-0.44 [facility] Comment on above: Performed By: #### C DP, BMP, CRP, PRCAL #### [address] [address] Fine Grader: Sabas Lamb MD Eosinophils/100 WBC (Bld) 0 % Low 1-4 [facility] Comment on above: Performed By: #### C DP, BMP, CRP, PRCAL #### [facility] [address] [place] [address] Fine Grader: Sabas Lamb MD Erythrocyte distribution width (RBC) [Ratio] 11.9 % Normal 11.8-14.4 [facility] Comment on above: Performed By: #### C DP, BMP, CRP, PRCAL #### [address] [address] Fine Grader: Sabas Lamb MD Hematocrit (Bld) [Volume fraction] 39.6 % Normal 36.3-47.1 [facility] Comment on above: Performed By: #### C DP, BMP, CRP, PRCAL #### [place] [address] Fine Grader: Sabas Lamb MD Hemoglobin (Bld) [Mass/Vol] 12.3 g/dL Normal 11.9-15.1 [facility] Comment on above: Performed By: #### C DP, BMP, CRP, PRCAL #### [place] [address] Fine Grader: Sabas Lamb MD Immature granulocytes (Bld) [#/Vol] 0 % Normal 0 [facility] Comment on above: Performed By: #### C DP, BMP, CRP, PRCAL #### [place] [address] Fine Grader: Sabas Lamb MD Lymphocytes (Bld) [#/Vol] 0.82 10*3/uL Low 1.10-3.70 [facility] Comment on above: Performed By: #### C DP, BMP, CRP, PRCAL #### [address] [address] Fine Grader: Sabas Lamb MD Lymphocytes/100 WBC (Bld) 6 % Low 24-43 [facility] Comment on above: Performed By: #### C DP, BMP, CRP, PRCAL #### [address] [address] Fine Grader: Sabas Lamb MD MCH (RBC) [Entitic mass] 31.1 pg Normal 25.2-33.5 [facility] Comment on above: Performed By: #### C DP, BMP, CRP, PRCAL #### [address] [address] Fine Grader: Sabas Lamb MD MCHC (RBC) [Mass/Vol] 31.1 g/dL Normal 28.4-34.8 [facility] Comment on above: Performed By: #### C DP, BMP, CRP, PRCAL #### [place] [address] Fine Grader: Sabas Lamb MD MCV (RBC) [Entitic vol] 100.3 fL Normal 82.6-102.9 [facility] Comment on above: Performed By: #### C DP, BMP, CRP, PRCAL #### [place] [address] Fine Grader: Sabas Lamb MD Monocytes (Bld) [#/Vol] 0.80 10*3/uL Normal 0.10-1.20 [facility] Comment on above: Performed By: #### C DP, BMP, CRP, PRCAL #### [place] [address] Fine Grader: Sabas Lamb MD Monocytes/100 WBC (Bld) 6 % Normal 3-12 [facility] Comment on above: Performed By: #### C DP, BMP, CRP, PRCAL #### [place] [address] Fine Grader: Sabas Lamb MD Neutrophil (Seg) 88 % High 36-65 [facility] Comment on above: Performed By: #### C DP, BMP, CRP, PRCAL #### [address] [address] Fine Grader: Sabas Lamb MD NRBC Automated 0.0 per 100 WBC Normal 0.0 [facility] Comment on above: Performed By: #### C DP, BMP, CRP, PRCAL #### [address] [address] Fine Grader: Sabas Lamb MD Platelet mean volume (Bld) [Entitic vol] 11.5 fL Normal 8.1-13.5 [facility] Comment on above: Performed By: #### C DP, BMP, CRP, PRCAL #### [address] [address] Fine Grader: Sabas Lamb MD Platelets (Bld) [#/Vol] 261 10*3/uL Normal 138-453 [facility] Comment on above: Performed By: #### C DP, BMP, CRP, PRCAL #### [address] [address] Fine Grader: Sabas Lamb MD RBC (Bld) [#/Vol] 3.95 10*6/uL Normal 3.95-5.11 [facility] Comment on above: Performed By: #### C DP, BMP, CRP, PRCAL #### [address] [address] Fine Grader: Sabas Lamb MD WBC (Bld) [#/Vol] 13.8 10*3/uL High 3.5-11.3 [facility] Comment on above: Performed By: #### C DP, BMP, CRP, PRCAL #### [facility] [employer] [address] [place] [address] Fine Grader: Sabas Lamb MD Auto Diff Performed NOT REPORTED Normal [facility] Comment on above: Performed By: #### C DP, BMP, CRP, PRCAL #### [facility] [employer] [address] [place] [address] Fine Grader: Sabas Lamb MD Platelets (Bld) [#/Vol] NOT REPORTED Normal [facility] Comment on above: Performed By: #### C DP, BMP, CRP, PRCAL #### [facility] [address] [place] [address] Fine Grader: Sabas Lamb MD RBC morphology finding Nom (Bld) NOT REPORTED Normal [facility] Comment on above: Performed By: #### C DP, BMP, CRP, PRCAL #### [facility] [employer] [address] [place] [address] Fine Grader: Sabas Lamb MD WBC Morphology NOT REPORTED Normal [facility] Comment on above: Performed By: #### C DP, BMP, CRP, PRCAL #### [address] [id number] Fine Grader: Sabas Lamb MD PTon 10-24-2018 INR Coag (PPP) [Relative time] 1.0 {INR} Normal [facility] Comment on above: Result Comment: Therapeutic Range: Moderate Anticoagulant Intensity: INR = 2.0-3.0 High Anticoagulant Intensity: INR = 2.5-3.5 Performed By: #### C DP, BMP, CRP, PRCAL #### [address] [id number] Fine Grader: Sabas Lamb MD PT Coag (PPP) [Time] 10.8 s Normal 9.0-12.0 [facility] Comment on above: Performed By: #### C DP, BMP, CRP, PRCAL #### [facility] [employer] [address] [place] [address] [id number] Fine Grader: Sabas Lamb MD Basic Metabolic Profon 10-23 (cont.) Normal [facility] Comment on above: Result Comment: Aver age GFR for 50-59 years old: 93 mL/min/1.73sq m Chronic Kidney Disease: <60 mL/min/1.73sq m Kidney failure: <15 mL/min/1.73sq m eGFR calculated using average adult body mass. Additional eGFR calculator available at: http://www.OneMob.Conservus International/multiple_crcl_2012.htm Performed By: #### C DP, BMP, CRP, PRCAL #### [facility] [employer] [address] [place] [address] Fine Grader: Sabas Lamb MD Anion gap [Moles/Vol] 14 mmol/L Normal 9-17 [facility] Comment on above: Performed By: #### C DP, BMP, CRP, PRCAL #### [facility] [employer] [address] [place] [address] Fine Grader: Sabas Lamb MD Calcium [Mass/Vol] 8.2 mg/dL Low 8.6-10.4 [facility] Comment on above: Performed By: #### C DP, BMP, CRP, PRCAL #### [facility] [employer] [address] [place] [address] Fine Grader: Sabas Lamb MD Chloride [Moles/Vol] 107 mmol/L Normal 98-107 [facility] Comment on above: Performed By: #### C DP, BMP, CRP, PRCAL #### [facility] [employer] [address] [place] [address] Fine Grader: Sabas Lamb MD CO2 [Moles/Vol] 20 mmol/L Normal 20-31 [facility] Comment on above: Performed By: #### C DP, BMP, CRP, PRCAL #### [facility] [employer] [address] [place] [address] 39875 Fine Grader: Sabas Lamb MD Creatinine [Mass/Vol] 0.42 mg/dL Low 0.50-0.90 [facility] Comment on above: Performed By: #### C DP, BMP, CRP, PRCAL #### [facility] [employer] [address] [place] [address] Fine Grader: Sabas Lamb MD GFR, Amer >60 Normal >60 [facility] Comment on above: Performed By: #### C DP, BMP, CRP, PRCAL #### [address] [address] Fine Grader: Sabas Lamb MD GFR,non Amer >60 Normal >60 [facility] Comment on above: Performed By: #### C DP, BMP, CRP, PRCAL #### [address] [address] Fine Grader: Sabas Lamb MD Glucose [Mass/Vol] 87 mg/dL Normal 70-99 [facility] Comment on above: Performed By: #### C DP, BMP, CRP, PRCAL #### [address] [address] Fine Grader: Sabas Lamb MD Potassium [Moles/Vol] 3.9 mmol/L Normal 3.7-5.3 [facility] Comment on above: Performed By: #### C DP, BMP, CRP, PRCAL #### [address] [address] Fine Grader: Sabas Lamb MD Sodium [Moles/Vol] 141 mmol/L Normal 135-144 [facility] Comment on above: Performed By: #### C DP, BMP, CRP, PRCAL #### [address] [address] Fine Grader: Sabas Lamb MD Urea nitrogen [Mass/Vol] 14 mg/dL Normal -20 [facility] Comment on above: Performed By: #### C DP, BMP, CRP, PRCAL #### [facility] [employer] [address] [place] [address] Fine Grader: Sabas Lamb MD BUN/CRE Ratio NOT REPORTED Normal -20 [facility] Comment on above: Performed By: #### C DP, BMP, CRP, PRCAL #### [facility] [employer] [address] [place] [address] 98757 Fine Grader: Sabas Lamb MD Staging: NOT REPORTED Normal [facility] Comment on above: Performed By: #### C DP, BMP, CRP, PRCAL #### [address] [address] Fine Grader: Sabas Lamb MD C-Reactive Proteinon 019 CRP [Mass/Vol] 40.6 mg/L High 0.0-5.0 [facility] Comment on above: Performed By: #### C DP, BMP, CRP, PRCAL #### [facility] [employer] [address] [place] [address] 23187 Fine Grader: Sabas Lamb MD CBC with Diffon 10-23-2018 Abs. Basophil 0.03 k/uL Normal 0.00-0.20 [facility] Comment on above: Performed By: #### C DP, BMP, CRP, PRCAL #### [address] [address] Fine Grader: Sabas Lamb MD Abs.Imm.Granulocy te 0.05 k/uL Normal 0.00-0.30 [facility] Comment on above: Performed By: #### C DP, BMP, CRP, PRCAL #### [facility] [employer] [address] [place] [phone] Fine Grader: Sabas Lamb MD Abs.Neutrophil (Seg) 13.74 k/uL High 1.50-8.10 [facility] Comment on above: Performed By: #### C DP, BMP, CRP, PRCAL #### [facility] [employer] [address] [place] [address]35 Fine Grader: Sabas Lamb MD Basophils/100 WBC (Bld) 0 % Normal 0-2 [facility] Comment on above: Performed By: #### C DP, BMP, CRP, PRCAL #### [facility] [employer] [address] [place] [address]181 Fine Grader: Sabas Lamb MD Eosinophils (Bld) [#/Vol] 10*3/uL Normal 0.00-0.44 [facility] Comment on above: Performed By: #### C DP, BMP, CRP, PRCAL #### [address] [address] Fine Grader: Sabas Lamb MD Eosinophils/100 WBC (Bld) 0 % Low 1-4 [facility] Comment on above: Performed By: #### C DP, BMP, CRP, PRCAL #### [address] [address] Fine Grader: Sabas Lamb MD Erythrocyte distribution width (RBC) [Ratio] 12.1 % Normal 11.8-14.4 [facility] Comment on above: Performed By: #### C DP, BMP, CRP, PRCAL #### [address] [address] Fine Grader: Sabas Lamb MD Hematocrit (Bld) [Volume fraction] 35.7 % Low 36.3-47.1 [facility] Comment on above: Performed By: #### C DP, BMP, CRP, PRCAL #### [address] [address] Fine Grader: Sabas Lamb MD Hemoglobin (Bld) [Mass/Vol] 11.5 g/dL Low 11.9-15.1 [facility] Comment on above: Performed By: #### C DP, BMP, CRP, PRCAL #### [address] [address] Fine Grader: Sabas Lamb MD Immature granulocytes (Bld) [#/Vol] 0 % Normal 0 [facility] Comment on above: Performed By: #### C DP, BMP, CRP, PRCAL #### [address] [address] Fine Grader: Sabas Lamb MD Lymphocytes (Bld) [#/Vol] 1.21 10*3/uL Normal 1.10-3.70 [facility] Comment on above: Performed By: #### C DP, BMP, CRP, PRCAL #### [address] [address] Fine Grader: Sabas Lamb MD Lymphocytes/100 WBC (Bld) 8 % Low 24-43 [facility] Comment on above: Performed By: #### C DP, BMP, CRP, PRCAL #### [address] [address] Fine Grader: Sabas Lamb MD MCH (RBC) [Entitic mass] 31.8 pg Normal 25.2-33.5 [facility] Comment on above: Performed By: #### C DP, BMP, CRP, PRCAL #### [address] [address] Fine Grader: Sabas Lamb MD MCHC (RBC) [Mass/Vol] 32.2 g/dL Normal 28.4-34.8 [facility] Comment on above: Performed By: #### C DP, BMP, CRP, PRCAL #### [address] [address] Fine Grader: Sabas Lamb MD MCV (RBC) [Entitic vol] 98.6 fL Normal 82.6-102.9 [facility] Comment on above: Performed By: #### C DP, BMP, CRP, PRCAL #### [address] [address] Fine Grader: Sabas Lamb MD Monocytes (Bld) [#/Vol] 1.01 10*3/uL Normal 0.10-1.20 [facility] Comment on above: Performed By: #### C DP, BMP, CRP, PRCAL #### [address] [address] Fine Grader: Sabas Lamb MD Monocytes/100 WBC (Bld) 6 % Normal 3-12 [facility] Comment on above: Performed By: #### C DP, BMP, CRP, PRCAL #### [address] [address] Fine Grader: Sabas Lamb MD Neutrophil (Seg) 86 % High 36-65 [facility] Comment on above: Performed By: #### C DP, BMP, CRP, PRCAL #### [address] [address] Fine Grader: Sabas Lamb MD NRBC Automated 0.0 per 100 WBC Normal 0.0 [facility] Comment on above: Performed By: #### C DP, BMP, CRP, PRCAL #### [address] [address] Fine Grader: Sabas Lamb MD Platelet mean volume (Bld) [Entitic vol] 11.7 fL Normal 8.1-13.5 [facility] Comment on above: Performed By: #### C DP, BMP, CRP, PRCAL #### [address] [address] Fine Grader: Sabas Lamb MD Platelets (Bld) [#/Vol] 268 10*3/uL Normal 138-453 [facility] Comment on above: Performed By: #### C DP, BMP, CRP, PRCAL #### [facility] [employer] [address] [place] [address] Fine Grader: Sabas Lamb MD RBC (Bld) [#/Vol] 3.62 10*6/uL Low 3.95-5.11 [facility] Comment on above: Performed By: #### C DP, BMP, CRP, PRCAL #### [address] [address] Fine Grader: Sabas Lamb MD WBC (Bld) [#/Vol] 16.1 10*3/uL High 3.5-11.3 [facility] Comment on above: Performed By: #### C DP, BMP, CRP, PRCAL #### [address] [address] Fine Grader: Sabas Lamb MD Auto Diff Performed NOT REPORTED Normal [facility] Comment on above: Performed By: #### C DP, BMP, CRP, PRCAL #### [address] [address] Fine Grader: Sabas Lamb MD Platelets (Bld) [#/Vol] NOT REPORTED Normal [facility] Comment on above: Performed By: #### C DP, BMP, CRP, PRCAL #### [address] [address] Fine Grader: Sabas Lamb MD RBC morphology finding Nom (Bld) NOT REPORTED Normal [facility] Comment on above: Performed By: #### C DP, BMP, CRP, PRCAL #### [address] [address] Fine Grader: Sabas Lamb MD WBC Morphology NOT REPORTED Normal [facility] Comment on above: Performed By: #### C DP, BMP, CRP, PRCAL #### [address] [address] Fine Grader: Sbaas Lamb MD CT HEAD WO CONTRASTon 2018 [...] left sphenoid sinus mucosal thickening. SOFT TISSUES/SKULL: [place] holes are now seen in the right frontal and parietal bones. There is overlying subcutaneous soft tissue swelling and gas. IMPRESSION: Improving right subdural collection with diminished midline shift after alpa hole placement. Interpreted by: Cas Contreras MD Signed by: Cas Contreras MD 10/23/18 Final result Normal [facility] MRI BRAIN W CONTRASTon 10-23 MRI BRAIN [...] Freddie Maldonado MD 10/23/18 Final result Normal [facility] OPERATIVE REPORTon 10-23-201 9 OPERATIVE REPORT [address] [address] OPERATIVE REPORT PATIENT NAME: DACIA FINLEY : 1960 MED REC NO: [id number] [facility]OM[facility] ACCOUNT NO: [id number] ADMIT DATE: 10/22/2018 PROVIDER: Meera Rojas DATE [...] with lightheadedness and coughing. She presented at [facility] ER earlier today due to these complaints and was found to have a sizeable right-sided subdural hematoma. She was transferred to [facility] for further management. She was reported to be neurologically intact when at the outside hospital, but upon arrival to the ER at [facility], she was noted to have some mild [...] evidence of complication. MEERA ROJAS DL/[id number] Doc#: [id number] CC: Normal [facility] Procalcitoninon 10-23-2018 Procalcitonin 0.06 ng/mL Normal <0.09 [facility] Comment on above: Result Comment: Suspected Sepsis: [...] entered into the Change in Procalcitonin Calculator (www.uhdang-xia-yljvoloyow.[employer] International) to determine the patient's Mortality Risk Prognosis Performed By: #### C DP, BMP, CRP, PRCAL #### [place] [address] Fine Grader: Sabas Lamb MD XR CHEST PORTABLEon 10-24-19 [...] Carlos Carlson MD 10/23/18 Final result Normal [facility] Platelets,Transfuseon 2018 Platelets,Transfu se Unit Number [id number] Blood Component Type Leukocyte Reduced Irradiated Plateletpheresis Unit Division 00 Status of Unit TRANSFUSED Transfusion Status OK TO TRANSFUSE Normal [facility] Comment on above: Performed By: #### T PLT #### [facility] [address] [place] [address] Fine Grader: Sabas Lamb MD Type + Screenon 10-22-2018 Type + Screen Sample Expiration Arm Band Number BE [id number] ABO/Rh(D) A POSITIVE Antibody Screen NEGATIVE Normal [facility] Comment on above: Performed By: #### T YS #### [employer] [address] [place] [id number] Fine Grader: Sabas Lamb MD Discharge Summaryon 06-07-20 Discharge Summary MR#: [id number] Admitted: 06/05/2017 Discharged: 06/06/2017 Date of : 1960 Physician: Rachele Post DO DISCHARGE SUMMARYDISCHARGE SERVICE: CCU.PRIMARY DIAGNOSIS: Acute coronary syndrome.SECONDARY DIAGNOSIS: Migraine.PROCEDURE: Percutaneous coronary intervention with stent placement.HOSPITAL COURSE: This is a 56-year-old female with past medical history ofmigraines, who was transferred from [facility]. She presented therewith chest discomfort and was found to have EKG abnormalities. In the lastmonth, the patient reported 3 episodes of chest pain with the latest being. The chest pain was also associated with sweating, shortnessof breath, and nausea. She was transferred from [facility] andadmitted to the CCU. The patient's troponins were remained negative, butwith her chest pain and EKG changes, she was taken to the lab asst. In thecath lab, this showed 90% stenosis in the [...] Dict: 06/06/2017/02:36 P/ROSI Keyate Trans: 06/07/2017 09:17 A/Kong_JN:[id number]: Ryan Arevalo M.D. [address] [facility] [address] Kel Bueno M.D. [address] [place] [address] Normal [facility] BASIC METABOLIC PANELon 12-3 Calcium 9.3 mg/dL Normal 8.6-10.3 [facility] Comment on above: Order Comment: Unkno wn Performed By: #### 0 0071, 97504 ####[facility] [place] [address], [facility] Chloride 105 mmol/L Normal 98-107 [facility] Comment on above: Order Comment: Unkno wn Performed By: #### 0 0071, 49448 ####[facility] [facility] [place] [place] [address], [facility] CO2 24 mmol/L Normal 21-31 [facility] Comment on above: Order Comment: Unkno wn Performed By: #### 0 0071, 52090 ####[facility] [facility] [place] [place] [address], [facility] Creatinine 0.72 mg/dL Normal 0.60-1.20 [facility] Comment on above: Order Comment: Unkno wn Performed By: #### 0 0071, 04012 ####[facility] [facility] [place] [place] [address], [facility] eGFR (black) mL/min/{1.73_m2} Normal >60 [facility] Comment on above: Order Comment: Unkno wn Performed By: #### 0 0071, 74793 ####[facility] [facility].[address] eGFR (non-black) mL/min/{1.73_m2} Normal >60 Th e [facility] Comment on above: Order Comment: Unkno wn Performed By: #### 0 0071, 67110 ####[facility] [facility] [place] [place] [address], [facility] Glucose mass conc 89 mg/dL Normal 70-100 [facility] Comment on above: Order Comment: Unkno wn Performed By: #### 0 0071, 33731 ####[facility] [facility] [place] [place] [address], [facility] Potassium molar conc 3.8 mmol/L Normal 3.5-5.1 [facility] Comment on above: Order Comment: Unkno wn Performed By: #### 0 0071, 92753 ####[facility] [facility] [place] [place] [address], [facility] Sodium 139 mmol/L Normal 136-145 [facility] Comment on above: Order Comment: Unkno wn Performed By: #### 0 1, 69417 ####[facility] [facility] [place] [address] [place] [address] Urea nitrogen 14 mg/dL Normal 7-25 [facility] Comment on above: Order Comment: Unkno wn Performed By: #### 0 007, 63473 ####[facility] [facility] [place] [address] [place] [address] CBC COMPLETE BLOOD COUNTon Erythrocyte distribution width Auto Ratio (RBC) 13.3 % Normal 11.5-16.9 [facility] Comment on above: Order Comment: Unkno wn Performed By: #### 5 0608 ####[facility] [facility].[address] Erythrocytes (RBC) 4.43 mill/mm3 Normal 3.50-5.50 [facility] Comment on above: Order Comment: Unkno wn Performed By: #### 5 0608 ####[facility] [facility].[place], [place] [id number] [place] [address] Hematocrit (HCT) 40.9 % Normal 36.0-48.0 [facility] Comment on above: Order Comment: Unkno wn Performed By: #### 5 0608 ####[facility] [facility], [place] [address] [place] [address] Hemoglobin mass conc (Bld) 13.6 g/dL Normal 12.0-15.0 [facility] Comment on above: Order Comment: Unkno wn Performed By: #### 5 0608 ####[facility] [facility] [place] [address], [facility] MCH 30.7 pg Normal 24.0-32.0 [facility] Comment on above: Order Comment: Unkno wn Performed By: #### 5 0608 ####[facility] [facility] [place] [place] [address], [facility] MCHC mass conc (RBC) 33.2 g/dL Normal 32.0-36.0 [facility] Comment on above: Order Comment: Unkno wn Performed By: #### 5 0608 ####[facility] MCV 92.2 fL Normal 80.0-100.0 [facility] Comment on above: Order Comment: Unkno wn Performed By: #### 5 0608 ####[facility] PLAT CNT 194 Thou/mm3 Normal 100-400 [facility] Comment on above: Order Comment: Unkno wn Performed By: #### 5 0608 ####[place] [id number] [address] WBC (Leukocytes) 10.8 Thou/mm3 High 4.0-10.0 [facility] Comment on above: Order Comment: Unkno wn Performed By: #### 5 0608 ####[facility] Cardiovascular Lab Reporton 06-06-2017 Cardiovascular Lab Report [facility] MR #: [id number] Physician: Elías Zhao M.D.Medicine Service Date: 06/05/2017Division of Birthdate: 1960Cardiology Room #: 3CD [id number] CardiovascularServices[place] [address]Phone Fax Cardiovascular Laboratory ReportINDICATION: Dacia Finley is [...] signed informed consent. She was brought to lab asst in a fastingstate. The right groin area was prepped and draped in usual fashion.Using micropuncture technique, the right common femoral artery wasaccessed. The inner cannula was advanced and limited right femoralangiography was performed followed by upsizing to a 5-Peruvian x 11 cmsheath. Bilateral selective carotid angiography was then performed using5-Peruvian JL4 and JR4 diagnostic catheters. Catheters were removed.Heparin was administered intravenously and therapeutic ACT confirmed duringthe procedure. A 5-Peruvian JR4 guiding catheter was advanced and used toengage the right coronary ostium. A Voxel (Internap) wire was advanced into thedistal RCA. Balloon [...] stentfollowed by post dilatation using [place] [employer] [place] 3.0 x 20 mm noncompliantballoon inflated at [...] 06/05/2017/03:03 P/Elías Cannon M.D.Date Trans: 06/06/2017 07:01 A/Kong_JN:[id number]: Ryan Arevalo M.D. [facility] [address] [facility] [place] [facility] [address] Kel Bueno M.D. [facility] [facility] [address] Normal [facility] MAGNESIUM BLOODon 06-06-2017 Magnesium 1.9 mg/dL Normal 1.9-2.7 [facility] Comment on above: Performed By: #### 5 0608 ####[facility] [facility].[address] APTTon 06-05-2017 aPTT 32.6 s Normal 25.0-35.0 [facility] Comment on above: Order Comment: No: D [...] THIS PURPOSE. Performed By: #### 5 6101, 08345 ####[facility] [facility] [place] [address], [facility] BASIC METABOLIC PANELon - Calcium 8.9 mg/dL Normal 8.6-10.3 [facility] Comment on above: Order Comment: No: D o not add to previous draw Performed By: #### 0 0071 ####[facility] [facility] [place] [address], [facility] Chloride 106 mmol/L Normal 98-107 [facility] Comment on above: Order Comment: No: D o not add to previous draw Performed By: #### 0 0071 ####[facility] [facility] [place] [address], [facility] CO2 28 mmol/L Normal 21-31 [facility] Comment on above: Order Comment: No: D o not add to previous draw Performed By: #### 0 0071 ####[facility] [place] [address], [facility] Creatinine 0.76 mg/dL Normal 0.60-1.20 [facility] Comment on above: Order Comment: No: D o not add to previous draw Performed By: #### 0 0071 ####[facility] [place] [address], [facility] eGFR (black) mL/min/{1.73_m2} Normal >60 [facility] Comment on above: Order Comment: No: D o not add to previous draw Performed By: #### 0 0071 ####[facility] [place] [address], [facility] eGFR (non-black) mL/min/{1.73_m2} Normal >60 Th e [facility] Comment on above: Order Comment: No: D o not add to previous draw Performed By: #### 0 0071 ####[facility] [place] [address], [facility] Glucose mass conc 88 mg/dL Normal 70-100 [facility] Comment on above: Order Comment: No: D o not add to previous draw Performed By: #### 0 0071 ####[facility] [place] [address], [facility] Potassium molar conc 3.8 mmol/L Normal 3.5-5.1 [facility] Comment on above: Order Comment: No: D o not add to previous draw Performed By: #### 0 0071 ####[facility] [place] [address], [facility] Sodium 138 mmol/L Normal 136-145 [facility] Comment on above: Order Comment: No: D o not add to previous draw Performed By: #### 0 0071 ####[facility] [id number], [facility] Urea nitrogen 10 mg/dL Normal 7-25 [facility] Comment on above: Order Comment: No: D o not add to previous draw Performed By: #### 0 0071 ####[facility] [facility] [address] CBC COMPLETE BLOOD COUNTon Erythrocyte distribution width Auto Ratio (RBC) 13.9 % Normal 11.5-16.9 [facility] Comment on above: Order Comment: No: D o not add to previous draw Performed By: #### 5 [id number] ####[facility] [address] Erythrocytes (RBC) 4.66 mill/mm3 Normal 3.50-5.50 [facility] Comment on above: Order Comment: No: D o not add to previous draw Performed By: #### 5 [id number] ####[facility] [facility].[address] Hematocrit (HCT) 42.9 % Normal 36.0-48.0 [facility] Comment on above: Order Comment: No: D o not add to previous draw Performed By: #### 5 0608 ####[place] [address] [facility].[address] Hemoglobin mass conc (Bld) 14.2 g/dL Normal 12.0-15.0 [facility] Comment on above: Order Comment: No: D o not add to previous draw Performed By: #### 5 0608 ####[facility] [address] MCH 30.5 pg Normal 24.0-32.0 [facility] Comment on above: Order Comment: No: D o not add to previous draw Performed By: #### 5 0608 ####[facility] [address] MCHC mass conc (RBC) 33.1 g/dL Normal 32.0-36.0 [facility] Comment on above: Order Comment: No: D o not add to previous draw Performed By: #### 5 0608 ####[facility] [place] [address], [facility] MCV 92.0 fL Normal 80.0-100.0 [facility] Comment on above: Order Comment: No: D o not add to previous draw Performed By: #### 5 0608 ####[facility] [place] [address], [facility] PLAT CNT 178 Thou/mm3 Normal 100-400 [facility] Comment on above: Order Comment: No: D o not add to previous draw Performed By: #### 5 0608 ####[facility] WBC (Leukocytes) 6.6 Thou/mm3 Normal 4.0-10.0 [facility] Comment on above: Order Comment: No: D o not add to previous draw Performed By: #### 5 0608 ####[facility] Erythrocyte distribution width Auto Ratio (RBC) 13.1 % Normal 11.5-16.9 [facility] Comment on above: Order Comment: No: D o not add to previous draw Performed By: #### 5 0608 ####[facility] Erythrocytes (RBC) 4.49 mill/mm3 Normal 3.50-5.50 [facility] Comment on above: Order Comment: No: D o not add to previous draw Performed By: #### 5 0608 ####[facility] Hematocrit (HCT) 41.7 % Normal 36.0-48.0 [facility] Comment on above: Order Comment: No: D o not add to previous draw Performed By: #### 5 0608 ####[facility] [place] [address], [facility] Hemoglobin mass conc (Bld) 13.9 g/dL Normal 12.0-15.0 [facility] Comment on above: Order Comment: No: D o not add to previous draw Performed By: #### 5 0608 ####[facility] [place] [address], [facility] MCH 31.1 pg Normal 24.0-32.0 [facility] Comment on above: Order Comment: No: D o not add to previous draw Performed By: #### 5 0608 ####[facility] MCHC mass conc (RBC) 33.5 g/dL Normal 32.0-36.0 [facility] Comment on above: Order Comment: No: D o not add to previous draw Performed By: #### 5 0608 ####[facility] MCV 92.8 fL Normal 80.0-100.0 [facility] Comment on above: Order Comment: No: D o not add to previous draw Performed By: #### 5 0608 ####[place] [address] [facility] [place] [address], [facility] PLAT CNT 172 Thou/mm3 Normal 100-400 [facility] Comment on above: Order Comment: No: D o not add to previous draw Performed By: #### 5 0608 ####[facility] [place] [address], [facility] WBC (Leukocytes) 6.7 Thou/mm3 Normal 4.0-10.0 [facility] Comment on above: Order Comment: No: D o not add to previous draw Performed By: #### 5 0608 ####[facility] [place] [address], [place] History and Physicalon 06-05 History and Physical [id number] D[facility] Fin[facility] Admitted: 06/05/2017 Date of : 1960 Attending Physician: Wayne Donis MD Room #: [id number] Discharge Date: HISTORY AND PHYSICALCHIEF COMPLAINT: Chest pain.HISTORY OF PRESENT ILLNESS: The patient is a 56-year-old female withhistory of migraines, who was transferred from [facility] after shepresented there with chest discomfort [...] chest. Because of [facility] and he did E[facility], which showed some T waveinversions in the lateral leads, [facility]. [facility] was negative and EKG again asmentioned, was abnormal with T wave inversion in the lateral leads. [facility] and[facility]. When I [...] or drug use.FAMILY HISTORY: Father of an PR at age 79 and mother of PR whenshe was having an open heart surgery at age 57.REVIEW OF SYSTEMS: A 10-point review of systems was done, and pertinentpositives and negatives mentioned in the HPI.MEDICATIONS: The patient only takes Imitrex for migraines as needed.PHYSICAL EXAMINATION: VITAL SIGNS: Temperature 98, pulse 75, [id number], blood pressure 129/80, and saturating 100% on [...] Signed by:Wayne Donis MD 06/29/2017 08:35 P __Wayne Donis MDDate Dict: 06/05/2017/03:33 A/Wayne Donis MDDate Trans: 06/05/2017 04:23 A/Kong_JN:[id number] Normal [facility] PROTHROMBIN TIMEon 7 INR Coag RelTime (PPP) 0.98 {INR} Normal 0.91-1.16 [facility] Comment on above: Order Comment: No: D [...] OF ACTION, CLINICALEFFECTIVENESS, AND OPTIMAL THERAPEUTIC RANGE. [id number]. Performed By: #### 5 6101, [id number] ####[facility] Prothrombin time (PT) Coag time (PPP) 13.0 s Normal 12.3-14.8 [facility] Comment on above: Order Comment: No: D o not add to previous draw Result Comment: ALL RESULTS MUST BE INTERPRETED WITH RESPECT TO BLOOD DRAWING ARTIFACTOR DILUTION ERROR OF ANTICOAGULANT AT THE TIME OF SAMPLING. Performed By: #### 5 6101, [id number] ####[facility] [place] [address], [facility] TROPONIN-Ion 06-05-2017 Troponin I.cardiac mass conc 0.03 ng/mL Normal 0.00-0.04 [facility] Comment on above: Order Comment: No: D o not add to previous draw Result Comment: REFE RENCE RANGES: 0.00 - 0.04 ng/ml NORMAL 0.05 - 0.50 ng/ml INDETERMINATE > 0.50 ng/ml CONSISTENT WITH AN M.I. Performed By: #### 3 5200 ####[facility] [place] [address], [facility] Troponin I.cardiac mass conc 0.01 ng/mL Normal 0.00-0.04 [facility] Comment on above: Order Comment: No: D o not add to previous draw Result Comment: REFE RENCE RANGES: 0.00 - 0.04 ng/ml NORMAL 0.05 - 0.50 ng/ml INDETERMINATE > 0.50 ng/ml CONSISTENT WITH AN M.I. Performed By: #### 3 5200 ####[facility] [place] [address], [facility] Troponin I.cardiac mass conc 0.02 ng/mL Normal 0.00-0.04 [facility] Comment on above: Order Comment: No: D o not add to previous draw Result Comment: REFE RENCE RANGES: 0.00 - 0.04 ng/ml NORMAL 0.05 - 0.50 ng/ml INDETERMINATE > 0.50 ng/ml CONSISTENT WITH AN M.I. Performed By: #### 3 5200 ####[facility] [place] [address], [facility] Vital Signs Date Time Vital Sign Value Performing Clinician Samir olivas 01-19-2023 11:15-0400 Diastolic blood pressure 92 mm[Hg] Elvira Scherer DO Work Phone: [facility] 01-19-2023 11:15-0400 Heart rate 75 /min Elvira Scherer DO Work Phone: [facility] 01-19-2023 11:15-0400 Respiratory rate 16 /min Elvira Scherer DO Work Phone: [facility] 01-19-2023 11:15-0400 SaO2% (BldA) [Mass fraction] 97 % Elvira Scherer DO Work Phone: [facility] 01-19-2023 11:15-0400 Systolic blood pressure 112 mm[Hg] Elvira Scherer DO Work Phone: [facility] 01-19-2023 10:48-0400 Body temperature 96.91 [degF] Elvira Scherer DO Work Phone: [facility] 01-19-2023 09:50-0400 Body height 154.9 cm Elvira Scherer DO Work Phone: [facility] 01-19-2023 09:50-0400 Body mass index (BMI) [Ratio] 19.84 kg/m2 Elvira Scherer DO Work Phone: [facility] 01-19-2023 09:50-0400 Body weight 47.63 kg Elvira Scherer DO Work Phone: [facility] 12-01-2022 10:15-0400 Diastolic blood pressure 67 mm[Hg] Elvira Scherer DO Work Phone: [facility] 12-01-2022 10:15-0400 Heart rate 66 /min Elvira Scherer DO Work Phone: [facility] 12-01-2022 10:15-0400 SaO2% (BldA) [Mass fraction] 97 % Elvira Scherer DO Work Phone: [facility] 12-01-2022 10:15-0400 Systolic blood pressure 112 mm[Hg] Elvira Scherer DO Work Phone: [facility] 12-01-2022 09:41-0400 Body temperature 97 [degF] Elvira Scherer DO Work Phone: [facility] 12-01-2022 09:41-0400 Respiratory rate 18 /min Elvirapietro Scherer Work Phone: [facility] 12-01-2022 08:20-0400 Body mass index (BMI) [Ratio] 20.18 kg/m2 Elvirapietro Scherer DO Work Phone: [facility] 12-01-2022 08:20-0400 Body weight 48.44 kg Elvirapietro Scherer DO Work Phone: [facility] 11-17-2022 11:32-0400 Body height 154.9 cm Elvira Paul Work Phone: [facility] Encounters Encounter Date Encounter Type Care Provider Facility Start: 01-19-2023 End: 01-19-2023 ambulatory R[facility] Start: 01-19-2023 End: 01-19-2023 Subsequent hospital visit by physician Elvira Scherer DO Work Phone: [facility] Start: 12-01-2022 End: 12-01-2022 ambulatory RYAN [facility] Start: 12-01-2022 End: 12-01-2022 Subsequent hospital visit by physician Elvira Scherer DO Work Phone: [facility] Start: 09-09-2022 End: 09-10-[address] RYAN AREVALO . Facility:[facility] Start: 08-29-2022 Encounter for genera l adult medical examination without abnormal findings DR RYAN AREVALO . [facility] Start: 08-21-2022 End: 08-21-[address] RYAN AREVALO . Facility:[facility] Start: 08-21-2022 End: 08-21-2022 Encounter for general adult medical examination without abnormal findings DR RYAN AREVALO . Facility:[facility] Start: 08-15-2022 End: 08-16-[address] RYAN AREVALO . Facility:[facility] Start: 10-22-2018 End: 10-26-2018 Evaluation and management of inpatient MEERA ROJAS [facility] Start: 06-05-2017 End: 06-06-2017 Evaluation and management of inpatient KEL BUENO Facility:[facility] Procedures Date Procedure Procedure Detail Performing Clinician [...] Porter ROJAS Start: 10-25-2018 TURN PATIENT MEERA Ray Start: 10-25-2018 MISCELLANEOUS NURSIN G CARE ORDER [...] MEERA Ray Start: 10-23-2018 FULL CODE MEERA JOSELUISTyler Ray Start: 10-23-2018 INITIATE OXYGEN THER APY PROTOCOL MEERA ROJAS Start: 10-23-2018 INTAKE AND OUTPUT MEERA ROJAS Start: 10-23-2018 NEURO CHECKS MEERA Ray Start: 10-23-2018 OT EVAL AND TREAT MEERA ROJAS Start: 10-23-2018 PLACE INTERMITTENT P NEUMATIC COMPRESSION DEVICE MEERA ROJAS Start: 10-23-2018 PT EVAL AND TREAT MEERA ROJAS Start: 10-23-2018 SEIZURE PRECAUTIONS MERVIN ID BOB Start: 10-23-2018 QUOTER EVAL AND TREAT RENNY D BOB Start: 10-23-2018 TOBACCO CESSATION EDUCATION MEERA ROJAS Start: 10-23-2018 VITAL SIGNS MEERA Ray Start: 10-23-2018 WOUND CARE MEERA ELKIN Ray Start: 10-22-2018 TRANSFUSE PLATELETS MERVIN ID BOB Start: 10-22-2018 Transfusion blood/bl ood components MEERA ROJAS Start: 10-22-2018 PATIENT STATUS (FROM ED OR OR/PROCEDURAL) MEERA ROJAS Start: 10-22-2018 TYPE AND SCREEN MEERA Panchal EWTHERESA Start: 10-22-2018 Ecg routine ecg w/le ast [...] cataract of right eye 01/19/2023 10:26 AM [facility] Start: 01-06-2023 Influenza vaccination B [facility] Start: 12-01-2022 End: 12-01-2022 Xcapsl ctrc rmvl insj io lens prosth w/o ecp EYE CATARACT EMULSIFICATION IOL IMPLANT Age-related nuclear cataract of left eye 12/01/2022 9:07 AM [facility] Start: 10-26-2019 Lipid panel Lipids [facility] Start: 08-29-2009 Screening for malign ant neoplasm of breast Breast cancer screen [facility] Start: 08-29-2009 Screening for malign ant neoplasm of lung Low dose CT lung screening &/or counseling [facility] Start: 08-29-2009 Shingles vaccine (1 of 2) Shingles vaccine (1 of 2) [facility] Start: 08-29-2004 Screening for malign ant neoplasm of colon [facility] Start: 08-29-1978 DTaP/Tdap/Td vaccine (1 - Tdap) DTaP/Tdap/Td vaccine (1 - Tdap) [facility] Start: 08-29-1977 Hepatitis C screening Hepatitis C sc reen [facility] Start: 08-29-1974 HIV screening HIV screen [facility] Start: 1971 Depression Screen Depression Screen [facility] Start: 08-29-1965 Pneumococcal 0-64 ye ars Vaccine (1 - PCV) Pneumococcal 0-64 years Vaccine (1 - PCV) [facility] Start: 03-01-1960 COVID-19 Vaccine (#1) COVID-19 Vacci ne (#1) [facility] Oxygen therapy [Mini mum Data Set] Initiate Oxygen Therapy Protocol Respiratory Care Routine Daily until discontinued starting 12/01/2022 [facility] Comment on above: Daily until disconti nued starting 12/01/2022 Oxygen therapy [Mini mum Data Set] Initiate Oxygen Therapy Protocol Respiratory Care Routine Daily until discontinued starting 12/01/2022 [facility] Comment on above: Daily until disconti nued starting 12/01/2022 Oxygen therapy [Mini mum Data Set] Initiate Oxygen Therapy Protocol Respiratory Care Routine Daily until discontinued starting 01/19/2023 [facility] Comment on above: Daily until disconti nued starting 01/19/2023 Oxygen therapy [[facility] Data Set] Initiate Oxygen Therapy Protocol Respiratory Care Routine Daily until discontinued starting 01/19/2023 [facility] Comment on above: Daily until disconti nued starting 01/19/2023 Payers Date Payer Category Payer Unknown [id number] [id number] 1960 Unknown [id number] [id number] [id number] 1960 Unknown [id number] 2.16.84 [id number] 1960 Unknown [id number] 2.16.84 [id number] 1960 Unknown [id number] 2.16.8 [id number] 1960 Unknown [id number] 2.16.8 [id number] 1960 [facility] [id number] Social History Date Type Detail Facility Start: 12-01-2022 [facility] History of tobacco use Cigarette Smoker [facility] Start: 12-01-2022 Cigarettes smoked current (pack per day) - Reported 1 [facility] Start: 12-01-2022 Tobacco use and exposure Smoke less tobacco non-user [facility] Start: 12-01-2022 End: 01-19-2023 Alcohol intake Lifetime non-drinker (finding) [facility] Start: 10-23-2018 History SDOH Alcohol Frequency 1 [facility] Start: 1960 Sex Assigned At Not on file [facility] Medical Equipment Procedure Code Equipment Code Equipment Origin al Text Equipment Identifier Dates Lens Intraocular Bcnvx 22+ Diopt 6x12.5 Mm Acryl Envista - [id number] Start: 12-01-2022 Lens Intraocular Bcnvx 22+ Diopt 6x12.5 Mm Acryl Envista - [id number] Start: 01-19-2023 History of Present illness Narrative 01-19-2023 Scot Velazquez RN - 01/19/2023 11:25 AM Susan Velazquez RN - 01/19/2023 11:20 AM Susan Velazquez RN - 01/19/2023 11:10 AM Terrie Arnold RN - 01/07/2023 2:05 PM EDT [...] phone call. documented in this encounter [facility] Discharge instructions 01-19-2023 Discharge Instructions Note Date & Type Note Facility 01-19-2023 Hospital Discharg e instructions Elvira Scherer, - 01/19/2023 10:52 AM EDT SAME DAY [...] the healing period. The office number is [phone]. Take surgery bag and all eye drops to Dr. Scherer's office tomorrow at 9:50am. You may resume your normal diet. Start your eye drops tomorrow after your post-op appointment: Ofloxacin/Polytrim one drop to the operated eye 4 times daily Prednisolone one drop to the operated eye 4 times daily documented in this encounter [facility] History of Present illness Narrative [...] the end of procedure. EKG received from [facility], will have anesthesia review. Patient instructed [...] EKG done. documented in this encounter [facility] Discharge instructions 12-01-2022 Discharge Instructions Note [...] the healing period. The office number is [phone]. Take surgery bag and all eye drops to Dr. Scherer's office tomorrow at 8:50am. You may resume your normal diet. 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 DATE CREATED AUTHOR AUTHOR'S ORGANIZ ATION 01/19/2019 [facility] DATE CREATED AUTHOR AUTHOR'S ORGANIZ ATION 04/13/2021 [facility] DATE CREATED AUTHOR AUTHOR'S ORGANIZ ATION 08/26/[address] [facility] DATE CREATED AUTHOR AUTHOR'S ORGANIZ ATION 09/14/2022 [facility] DATE CREATED AUTHOR AUTHOR'S ORGANIZ ATION 01/22/2023 [facility] DATE CREATED AUTHOR AUTHOR'S ORGANIZ ATION 06/04/2023 [facility] Reason for Visit (unrecogniz ed section and content) Specialty Diagnoses / Procedures Referred By Mo garza Referred To Contact Diagnoses Age-related nuclear cataract of left eye AGE-RELATED NUCLEAR CAT 3+ NS, 1+PSC Procedures IA XCAPSL CTRC RMVL INSJ IO LENS PROSTH W/O ECP EYE CATARACT EMULSIFICATION IOL IMPLANT Elvira Scherer, DO [address] [place] [address] [facility] [address] [place] [address] Referral ID Status Reason Start Date Expiration Date Visits Re quested Visits Authorized [id number] 1 1 Specialty Diagnoses / Procedures Referred By Mo garza Referred To Contact Diagnoses 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 [H25.811] Procedures IA XCAPSL CTRC RMVL INSJ IO LENS PROSTH W/O ECP EYE CATARACT EMULSIFICATION IOL IMPLANT Elvira Scherer, DO [address] [place] [address] [facility] [address] [place] [address] Referral ID Status Reason Start Date Expiration Date Visits Re quested Visits Authorized [id number] 1 1 Scheduled Active and Recently Administ [...] prior to surgery., Pre-op (day of surgery) 09 (Given - Provid er: Scot Bryant RN) [...] minutes, starting 30 minutes prior to surgery, [facility] - enter number of doses based [...] Intra-op 1035 (Given - Provid er: Elvira Y Paul, DO) Care Teams (unrecognized sec tion and content) Councilor Relationship Specialty Start Date End Date Ryan Arevalo MD [address] [place] [address] PCP - General Family Medicine 10/22/18 FOR [...] BE BASED ON THE PRIMARY CLINICAL RECORDS. [address] [facility]. provides no warranty or guarantee of the accuracy or completeness of information in this document.
== END 2024-03-01 08:28 | disposition home or self-care (01) ==
LOC: RAD 08:28
PROVIDERS: PCP Family Medicine; Visit Provider Family Medicine
DX: R93.89 Abnormal findings on diagnostic imaging of other specified body structures (principal)
CPT/HCPCS: 71046

== ENCOUNTER 2024-03-22 07:41 | Outpatient (OUT) | payer BC, SELFPAY ==
--- NOTE | 2024-03-22 07:43 | CT_ITS ---
The [address] [address] Patient Name: LOU MCGUIRE MRN: [id number] date: 1960 Sex: F Assigned Patient Location: CT Current Patient Location: Accession/Order Number: [id number] Exam Date: 03/22/2024 07:46 Report Date: 03/23/2024 10:04 At the request of: RYAN LEMOS Procedure: CT chest wo con EXAMINATION: CT chest wo con HISTORY: Abnormal Findings On Diagnostic Imaging COMPARISON: 10/07/2023 TECHNIQUE: Multi-planar CT images were created with IV contrast. Axial, Coronal, and Sagittal images. Dose reduction techniques were achieved by using automated exposure control and/or adjustment of mA and/or kV according to patient size and/or use of iterative reconstruction technique. FINDINGS: LUNGS: Moderate diffuse centrilobular emphysema with an upper lobe predominance. Stable patchy opacities in both lung apices, I favor pleural parenchymal scarring. Scattered subcentimeter pulmonary nodules unchanged both in number and size from the prior exam. Linear opacity in the left lung base has significantly decreased PLEURA: No mass, effusion, or pneumothorax. VASCULATURE: No abnormality. LIVIA: No mass or adenopathy. MEDIASTINUM: No mass or adenopathy. CARDIAC: No enlargement or pericardial effusion Coronary arteries: Mild calcifications with stents AORTA: No aortic aneurysm. Moderate calcific atherosclerosis CHEST WALL: No mass or axillary adenopathy. BONES: No bone lesion or fracture. LIMITED ABDOMEN: The liver is enlarged measuring 21.7 cm transversely. OTHER: Negative. CT/CT chest wo con IMPRESSION: Stable emphysema and scattered punctate pulmonary nodules Electronically authenticated by: MEERA HODGE Date: 03/23/2024 10:04
--- OUTSIDE RECORDS SUMMARY | 2024-03-22 07:48 | XMS_ITS | CCD ---
Author Organization [facility] Care Team Providers Care Rope Cleaner Name Role Phone KEL BUENO Unavailable Unavailable RYAN AREVALO Unavailable Unavailable ALENID, AURORA HUSSAM Unavailable Unavailabl e RACHELE POST Unavailable Unavailable [place] Unavailable Unavailable UNKNOWN, PROVIDER Unavailable Unavailable MEERA [...] Unavailable HOY ., DR DAVIS Consulting Unavailable [place], DR MEERA Maria Consulting Unavailable BILLY, DR CORINA Nichole Consulting Unavailable Ryan Arevalo MD Primary Care Provider [phone] RYAN AREVALO Primary Care Unavailable ELVIRA [...] (Original) docusate sodium 50 mg / sennosides, penitentiary 8.6 mg oral tablet (1 source) Start: [...] disease (1 source) Atherosclerotic heart disease of [place] coronary artery with unstable angina pectoris; Translations: [ATHSCL HEART DISEASE OF [place] COR ART W UNSTABLE ANG PCTRS] Onset: [...] Facility CNCOon 06-02-2023 CNCO Letter Text Normal [facility] CNPNon 06-02-2023 CNPN Telephone (CARDMN) DACIA FINLEY ([id number]) 1960 F Date Time Provider Department 06/02/23 CELIA MATOS ([facility]) CARDMN During your visit today, we recorded [...] Status:Closed by CELIA LILLY on 06/02/23 Normal [facility] FREE T3on 09-09-2022 FREE T3 3.53 pg/mlL Normal 2.18-3.98 [facility] Comment on above: Performed By: #### T 4, FT3, TSH #### [facility] [address] [place] [address] Dr. Guevara Abraham T4on 09-09-2022 T4 [Mass/Vol] 10.20 ug/dL Normal 4.80-13.90 [facility] Comment on above: Performed By: #### T 4, FT3, TSH #### [facility] [address] [place] [address] Dr. Guevara Abraham TSHon 09-09-2022 TSH 7.509 uIU/mL Critically high 0.358-3.74 0 [facility] Comment on above: Performed By: #### T 4, FT3, TSH #### [facility] [address] [place] [address] Dr. Guevara Abraham OCC BLD IMMUNO SCREENon 08-06 OCCULT BLOOD Negative Normal NEGATIVE [facility] Comment on above: Performed By: #### A NAIFA #### [facility] [address] [place] [address] Dr. Guevara Abraham CODI by IFAon 08-19-2022 Antinuclear Antibodies, IFA Negative Normal [facility] Comment on above: Result Comment: Nega tive <1:80 Borderline 1:80 Positive >1:80 ICAP nomenclature: AC-0 For more information about Hep-2 cell patterns use ANApatterns.org, the official website for the International Consensus on Antinuclear Antibody (CODI) Patterns (ICAP). Performed By: #### A NAIFA #### [facility] [address] [place] [address] Dr. Guevara Abraham ANTISTREPTOLYSIN O AB (ASO)o n 08-16-2022 Antistreptolysin O Ab 248.1 IU/mL Critically high 0.0-200.0 [facility] Comment on above: Performed By: #### A SOAB #### [facility] [address] [place] [address] Dr. Guevara Abraham C-REACTIVE PROTEINS (HS)on 0 08-16-2022 C-Reactive Protein, Cardiac 0.32 mg/L Normal 0.00-3.00 [facility] Comment on above: Result Comment: Rela tive Risk for Future Cardiovascular Event Low <1.00 Average 1.00 - 3.00 High >3.00 Performed By: #### C RPHS #### [facility] [address] [place] [address] Dr. Guevara Abraham INSULINon 08-16-2022 Insulin 11.3 uIU/mL Normal 2.6-24.9 [facility] Comment on above: Performed By: #### I NSULIN ####[facility] [address] [place], [place] [address]DrCain Abraham RHEUMATOID FACTORon 08-17-19 23 RA Latex Turbid. <10.0 Normal <14.0 [facility] Comment on above: Performed By: #### R F #### [facility] [address] [place] [address] Dr. Guevara Abraham CBC AUTO DIFFon 08-15-2022 BASO # 0.1 103/ul Normal 0.0-0.1 [facility] Comment on above: Performed By: #### C BC ####[facility] [address] [place], [place] [address]Dr. Guevara Abraham Basophils/100 WBC (Bld) 0.6 % Normal 0.2-2.0 [facility] Comment on above: Performed By: #### C BC ####[facility] [address] [place], [place] [address]DrCain Abraahm EO # 0.2 103/ul Normal 0.0-0.7 [facility] Comment on above: Performed By: #### C BC ####[facility] [address] [place], [place] [address]DrCain Abraham Eosinophils/100 WBC (Bld) 1.9 % Normal 0.9-7.0 [facility] Comment on above: Performed By: #### C BC ####[facility] [address] [place], [place] [address]DrCain Abraham Erythrocyte distribution width (RBC) [Ratio] 12.8 % Normal 11.0-15.0 [facility] Comment on above: Performed By: #### C BC ####[facility] [address] [place] [address]Dr. Zabrinameño Abraham Hematocrit (Bld) [Volume fraction] 43.1 % Normal 36.0-48.0 [facility] Comment on above: Performed By: #### C BC ####[facility] [address] [place] [address]Dr. Guevara Abraham Hemoglobin (Bld) [Mass/Vol] 14.5 g/dL Normal 12.0-16.0 [facility] Comment on above: Performed By: #### C BC ####[facility] F[address] [place], [place] [address]Dr. Guevara Abraham IG # 0.03 10e3/ul Normal 0.00-0.03 [facility] Comment on above: Performed By: #### C BC ####[facility] Er[address]sh[address] [place], [place] [address]Dr. Guevara Abraham IG % 0.3 % Normal 0.0-0.5 [facility] Comment on above: Performed By: #### C BC ####[facility] Ufcqn[address] [place], [place] [address]Dr. Guevara Abraham LYMPH # 3.3 103/ul Normal 1.2-3.8 [facility] Comment on above: Performed By: #### C BC ####[facility] Ekcvsk[address]imt[address] [place], [place] [address]Dr. Guevara Abraham Lymphocytes/100 WBC (Bld) 34.2 % Normal 20.5-60.0 [facility] Comment on above: Performed By: #### C BC ####[facility] [address] [place] [address]Dr. Guevara Abraham MANUAL DIFF REQ NO Normal [facility] Comment on above: Performed By: #### C BC ####[facility] M[address] [place], [place] [address]DrCain Abraham MCH (RBC) [Entitic mass] 31.4 pg Normal 26.7-34.0 [facility] Comment on above: Performed By: #### C BC ####[facility] X[address]hbkrmbp[address] [place], [place] [address]Dr. Guevara Abraham MCHC (RBC) [Mass/Vol] 33.6 g/dL Normal 29.9-35.2 [facility] Comment on above: Performed By: #### C BC ####[facility] [address] [place] [id number]. Guevara Abraham MCV (RBC) [Entitic vol] 93.3 fL Normal 81.0-99.0 [facility] Comment on above: Performed By: #### C BC ####[facility] [address] [place], [place] [address]Dr. Guevara Abraham MONO # 0.7 103/ul Normal 0.3-0.8 [facility] Comment on above: Performed By: #### C BC ####[facility] [address]vbxq[address] [place], [place] [address]Dr. Guevara Abraham Monocytes/100 WBC (Bld) 7.3 % Normal 1.7-12.0 [facility] Comment on above: Performed By: #### C BC ####[facility] [address] [place], [place] [address]Dr. Guevara Abraham NEUT # 5.3 103/ul Normal 1.4-6.5 [facility] Comment on above: Performed By: #### C BC ####[facility] J[address] [place], [place] [address]Dr. Guevara Abraham Neutrophils/100 WBC (Bld) 55.7 % Normal 43.0-75.0 [facility] Comment on above: Performed By: #### C BC ####[facility] [address] [place], [place] [address]Dr. Guevara Abraham Platelet mean volume (Bld) [Entitic vol] 11.5 fL Normal 9.5-13.5 [facility] Comment on above: Performed By: #### C BC ####[facility] Ol[address] [place], [place] [address]Dr. Guevara Abraham PLT 211 103/ul Normal 150-450 [facility] Comment on above: Performed By: #### C BC ####[facility] Z[address]ufco[address] [place], [place] [address]Dr. Guevara Abraham RBC 4.62 106/ul Normal 4.20-5.40 [facility] Comment on above: Performed By: #### C BC ####[facility] [address] [place], [place] [address]Im. Guevara Abraham WBC 9.5 103/ul Normal 4.0-11.0 [facility] Comment on above: Performed By: #### C BC ####[facility] [address] [place] [phone]. Guevara Abraham CRPon 08-15-2022 CRP [Mass/Vol] mg/L Normal <=1.0 [facility] Comment on above: Performed By: #### C RP, T7, CMP, URIC, LIPID, TSH ####[facility] [address] [place], [place] [address]Ss. G[address] CT LUNG CANCER SCREENINGon 0 [...] CORINA CERVANTES Date: 2022-08-15 09:25 Normal [facility] FREE THYROXINE INDEX T7on FTI 3.00 Normal 1.30-4.50 [facility] Comment on above: Performed By: #### C RP, T7, CMP, URIC, LIPID, TSH ####[facility] [address] [place] [phone]. Guevara Abraham T3U 33.0 % Normal 30.0-39.0 [facility] Comment on above: Performed By: #### C RP, T7, CMP, URIC, LIPID, TSH ####[facility] [address] [place] [id number]. Guevara Abraham T4 [Mass/Vol] 9.10 ug/dL Normal 4.80-13.90 [facility] Comment on above: Performed By: #### C RP, T7, CMP, URIC, LIPID, TSH ####[facility] [address] [place] [address]DrCain Abraham GLYCOHEMOGLOBIN A1Con 2022 ADA RECOMMENDATION SEE BELOW Normal [facility] Comment on above: Result Comment: ADA RECOMMENDED LIMIT 4.0 - 6.0 ADA THERAPEUTIC TARGET < 7.0 ACTION SUGGESTED > 7.0 Performed By: #### A 1C ####[facility] [address] [place] [address]Dr. Guevara Abraham Glucose [Mass/Vol] 120 mg/dL Normal [facility] Comment on above: Performed By: #### A 1C ####[facility] [address] [place] [address]Dr. Guevara Abraham HbA1c (Bld) [Mass fraction] 5.8 % Normal 4.5-6.2 [facility] Comment on above: Performed By: #### A 1C ####[facility] [address] [place] [address]DrCain Abraham IRONon 08-15-2022 Iron [Mass/Vol] 124.0 ug/dL Normal 50.0-170.0 [facility] Comment on above: Performed By: #### I MIAH #### [facility] [address] [place] [address] [address] Guevara Abraham LIPID PROFILEon 08-15-2022 CHOL-HDL RATIO NORM SEE BELOW Normal [facility] Comment on above: Result Comment: 3.3 - 4.4 LOW RISK 4.4 - 7.1 AVERAGE RISK 7.1 - 11.0 MODERATE RISK >11.0 HIGH RISK Performed By: #### C RP, T7, CMP, URIC, LIPID, TSH ####[facility] [address] [place] [address]Dr. Guevara Abraham Cholesterol [Mass/Vol] 132 mg/dL Normal <=200 [facility] Comment on above: Performed By: #### C RP, T7, CMP, URIC, LIPID, TSH ####[facility] [address] [place] [address]Dr. Guevara Abraham Cholesterol in HDL [Mass/Vol] 44 mg/dL Normal 40-60 [facility] Comment on above: Performed By: #### C RP, T7, CMP, URIC, LIPID, TSH ####[facility] [address] [place] [address]Dr. Guevara Abraham Cholesterol in LDL [Mass/Vol] 70.8 mg/dL Normal [facility] Comment on above: Performed By: #### C RP, T7, CMP, URIC, LIPID, TSH ####[facility] [address] [place] [address]Dr. Guevara Abraham Cholesterol.total /Cholesterol in HDL [Mass ratio] 3.0 {ratio} Normal [facility] Comment on above: Performed By: #### C RP, T7, CMP, URIC, LIPID, TSH ####[facility] [address] [place] [address]Dr. Guevara Abraham HDL NORMAL > or = 60 mg/dl - LO W CARDIOVASCULAR RISK <40 mg/dl - HIGH CARDIOVASCULAR RISK Normal [facility] Comment on above: Performed By: #### C RP, T7, CMP, URIC, LIPID, TSH ####[facility] [address] [place] [address]Dr. Guevara Abraham LDL CALC NORMAL SEE BELOW Normal [facility] Comment on above: Result Comment: <100 mg/dl OPTIMAL 100 - 129 mg/dl NEAR OR ABOVE OPTIMAL 130 - 159 mg/dl BORDERLINE HIGH 160 - 189 mg/dl HIGH >190 mg/dl VERY HIGH Performed By: #### C RP, T7, CMP, URIC, LIPID, TSH ####[facility] [address] [place], [place] [address]Bz. Guevara Abrahma Triglyceride [Mass/Vol] 86 mg/dL Normal <=150 [facility] Comment on above: Performed By: #### C RP, T7, CMP, URIC, LIPID, TSH ####[facility] [address] [place], [place] [address]Ab. Guevara Abraham VLDL CALC 17.2 mg/dL Normal [facility] Comment on above: Performed By: #### C RP, T7, CMP, URIC, LIPID, TSH ####[facility] [address] [place], [place] [address]Yf. Guevara Abraham MG MAMM SCREEN 3D GRICEL CADon 08-15-2022 MG MAMM SCREEN 3D GRICEL CAD Patient: DACIA FINLEY Exam Date: 08/15/2022 : 1960 Gender:F Ordering : DR RYAN AREVALO . Admission #: [id number] Family : Order #: [id number] CLICK HERE TO VIEW EXAM RADIOLOGY REPORT PROCEDURE: MAMMOGRAM SCREENING 3D BILATERAL CAD COMPARISON: MG MAMM GRICEL SCRN W CAD DIG, 07/04/2015. INDICATIONS: Screening mammography Calculator Name NCI Breast Cancer Risk Assessment Tool 5 Year Breast Cancer Risk Not Reported. Lifetime Breast Cancer Risk Not Reported. Personal Breast Cancer No Personal Ovarian Cancer No Treatments None Family Cancers None LOCATION: [facility] BREAST COMPOSITION: Extremely dense, which lowers the [...] MD on 08/15/2022 at 09:49 Normal [facility] PROF 14(COMP METB)on 023 Albumin [Mass/Vol] 3.9 g/dL Normal 3.4-5.0 [facility] Comment on above: Performed By: #### C RP, T7, CMP, URIC, LIPID, TSH ####[facility] [address] [place] [address]Dr. Guevara Abraham Albumin/Globulin [Mass ratio] 1.2 {ratio} Normal [facility] Comment on above: Performed By: #### C RP, T7, CMP, URIC, LIPID, TSH ####[facility] [address] [place] [address]Dr. Guevara Abraham ALP [Catalytic activity/Vol] 66 U/L Normal 46-116 [facility] Comment on above: Performed By: #### C RP, T7, CMP, URIC, LIPID, TSH ####[facility] [address] [place] [address]Dr. Guevara Abraham ALT [Catalytic activity/Vol] 22 U/L Normal 14-59 [facility] Comment on above: Performed By: #### C RP, T7, CMP, URIC, LIPID, TSH ####[facility] [address]zu[address] [place] [address]Dr. Guevara Abraham Anion gap [Moles/Vol] 12.9 mmol/L Normal [facility] Comment on above: Performed By: #### C RP, T7, CMP, URIC, LIPID, TSH ####[facility] [address] [place] [address]Dr. Guevara Abraham AST [Catalytic activity/Vol] 14 U/L Critically low 15-37 [facility] Comment on above: Performed By: #### C RP, T7, CMP, URIC, LIPID, TSH ####[facility] [address] [place] [address]Dr. Guevara Abraham Bilirubin [Mass/Vol] 0.4 mg/dL Normal 0.2-1.0 [facility] Comment on above: Performed By: #### C RP, T7, CMP, URIC, LIPID, TSH ####[facility] [address]ax[address] [place] [address]Dr. Guevara Abraham Calcium [Mass/Vol] 8.8 mg/dL Normal 8.5-10.1 [facility] Comment on above: Performed By: #### C RP, T7, CMP, URIC, LIPID, TSH ####[facility] [address] [place] [address]Dr. Guevara Abraham Chloride [Moles/Vol] 107 mmol/L Normal 98-107 [facility] Comment on above: Performed By: #### C RP, T7, CMP, URIC, LIPID, TSH ####[facility] [address] [place] [address]Dr. Guevara Abraham CO2 [Moles/Vol] 26.8 mmol/L Normal 21.0-32.0 [facility] Comment on above: Performed By: #### C RP, T7, CMP, URIC, LIPID, TSH ####[facility] [address] [place] [address]Dr. Guevara Abraham Creatinine [Mass/Vol] 0.85 mg/dL Normal 0.55-1.02 [facility] Comment on above: Performed By: #### C RP, T7, CMP, URIC, LIPID, TSH ####[facility] [address] [place] [address]Dr. Guevara Abraham EGFR-AF [place] >60 Normal >=60 [facility] Comment on above: Performed By: #### C RP, T7, CMP, URIC, LIPID, TSH ####[facility] [address] [place] [address]Dr. Guevara Abraham EGFR-NON AF [place] >60 Normal >=60 [facility] Comment on above: Performed By: #### C RP, T7, CMP, URIC, LIPID, TSH ####[facility] [address] [place] [address]Dr. Guevara Abraham Globulin (S) [Mass/Vol] 3.2 g/dL Normal [facility] Comment on above: Performed By: #### C RP, T7, CMP, URIC, LIPID, TSH ####[facility] [address] [place] [address]Dr. Guevara Abraham Glucose [Mass/Vol] 96 mg/dL Normal 74-106 [facility] Comment on above: Performed By: #### C RP, T7, CMP, URIC, LIPID, TSH ####[facility] [address] [place] [address]Dr. Guevara Abraham Potassium [Moles/Vol] 3.7 mmol/L Normal 3.5-5.1 [facility] Comment on above: Performed By: #### C RP, T7, CMP, URIC, LIPID, TSH ####[facility] [address] [place] [address]Dr. Guevara Abraham Protein [Mass/Vol] 7.1 g/dL Normal 6.4-8.2 [facility] Comment on above: Performed By: #### C RP, T7, CMP, URIC, LIPID, TSH ####[facility] [address] [place] [address]Dr. Guevara Abraham Sodium [Moles/Vol] 143 mmol/L Normal 136-145 [facility] Comment on above: Performed By: #### C RP, T7, CMP, URIC, LIPID, TSH ####[facility] [address] [place] [address]Dr. Guevara Abraham Urea nitrogen [Mass/Vol] 13.0 mg/dL Normal 7.0-18.0 [facility] Comment on above: Performed By: #### C RP, T7, CMP, URIC, LIPID, TSH ####[facility] [address] [place] [address]Dr. Guevara Abraham Urea nitrogen/Creatini ne [Mass ratio] 15.3 mg/mg Normal [facility] Comment on above: Performed By: #### C RP, T7, CMP, URIC, LIPID, TSH ####[facility] [address] [place] [address]Dr. Guevara Abraham TSHon 08-15-2022 TSH 5.411 uIU/mL Critically high 0.358-3.74 0 [facility] Comment on above: Performed By: #### C RP, T7, CMP, URIC, LIPID, TSH ####[facility] [address] [place] [address]Dr. Guevara Abraham URIC ACID SERUMon 08-15-2022 Urate [Mass/Vol] 3.1 mg/dL Normal 2.6-6.0 [facility] Comment on above: Performed By: #### C RP, T7, CMP, URIC, LIPID, TSH ####[facility] [address] [place], [place] [address]YeCain Abraham XR DEXA BONE DENSITYon 08-15 XR [...] MEERA HODGE Date: 2022-08-15 09:00 Normal [facility] XR LSPINE MIN 4 VIEWSon 08-06 XR [...] CORINA CERVANTES Date: 2022-08-15 09:04 Normal [facility] MR head/brain wo conon 07-19 MR head/brain wo con [facility] [place] [address] MRI Report Signed Patient: Dacia Finley MR#: [id number] : 1960 Acct:[id number] Age/Sex: 60 / F ADM Date: 07/19/21 Loc: [facility] Room: Type: [facility] Attending Dr: Himanshu Acosta DO Ordering Provider: [...] Jack Giles M.D.07/19/2021 1:11 PM Dictation Location: [place] [address] Transcribed By: [facility] 07/19/21 1311 Dictated By: Jack Giles II, MD 07/19/21 1302 Signed By: 07/19/21 1311 Normal [facility] Physician Referralon 021 Physician Referral [id number] Normal [facility] Basic Metabolic Profon 10-26 (cont.) Normal [facility] Comment on above: Result Comment: Aver age GFR for 50-59 years old: 93 mL/min/1.73sq m Chronic Kidney Disease: <60 mL/min/1.73sq m Kidney failure: <15 mL/min/1.73sq m eGFR calculated using average adult body mass. Additional eGFR calculator available at: http://www.[employer]/multiple_crcl_2012.htm Performed By: #### C DP, BMP, CRP, PRCAL #### [facility] [address] [place] [address] Margarine Maker: Sabas Lamb MD Anion gap [Moles/Vol] 9 mmol/L Normal 9-17 [facility] Comment on above: Performed By: #### C DP, BMP, CRP, PRCAL #### [facility] [employer] [address] [place] [address] Margarine Maker: Sabas Lamb MD Calcium [Mass/Vol] 8.3 mg/dL Low 8.6-10.4 [facility] Comment on above: Performed By: #### C DP, BMP, CRP, PRCAL #### [facility] [address] [place] [address] Margarine Maker: Sabas Lamb MD Chloride [Moles/Vol] 100 mmol/L Normal 98-107 [facility] Comment on above: Performed By: #### C DP, BMP, CRP, PRCAL #### [facility] [address] [place] [address] Margarine Maker: Sabas Lamb MD CO2 [Moles/Vol] 26 mmol/L Normal 20-31 [facility] Comment on above: Performed By: #### C DP, BMP, CRP, PRCAL #### [place] [address] [place] [address] Margarine Maker: Sabas Lamb MD Creatinine [Mass/Vol] 0.26 mg/dL Low 0.50-0.90 [facility] Comment on above: Performed By: #### C DP, BMP, CRP, PRCAL #### [address] [address] Margarine Maker: Sabas Lamb MD GFR, Amer >60 Normal >60 [facility] Comment on above: Performed By: #### C DP, BMP, CRP, PRCAL #### [facility] [employer] [address] [place] [address] Margarine Maker: Sabas Lamb MD GFR,non Amer >60 Normal >60 [facility] Comment on above: Performed By: #### C DP, BMP, CRP, PRCAL #### [facility] [employer] [address] [place] [address] Margarine Maker: Sabas Lamb MD Glucose [Mass/Vol] 112 mg/dL High 70-99 [facility] Comment on above: Performed By: #### C DP, BMP, CRP, PRCAL #### [address] [address] Margarine Maker: Sabas Lamb MD Potassium [Moles/Vol] 3.1 mmol/L Low 3.7-5.3 [facility] Comment on above: Performed By: #### C DP, BMP, CRP, PRCAL #### [facility] [employer] [address] [place] [address] Margarine Maker: Sabas Lamb MD Sodium [Moles/Vol] 135 mmol/L Normal 135-144 [facility] Comment on above: Performed By: #### C DP, BMP, CRP, PRCAL #### [facility] [employer] [address] [place] [address] Margarine Maker: Sabas Lamb MD Urea nitrogen [Mass/Vol] 6 mg/dL Normal 6-20 [facility] Comment on above: Performed By: #### C DP, BMP, CRP, PRCAL #### [facility] [employer] [address] [place] [address] Margarine Maker: Sabas Lamb MD BUN/CRE Ratio NOT REPORTED Normal 9-20 [facility] Comment on above: Performed By: #### C DP, BMP, CRP, PRCAL #### [address] [address] Margarine Maker: Sabas Lamb MD Staging: NOT REPORTED Normal [facility] Comment on above: Performed By: #### C DP, BMP, CRP, PRCAL #### [place] [address] Margarine Maker: Sabas Lamb MD CBC with Diffon 10-26-2018 Abs. Basophil <0.03 Normal 0.00-0.20 [facility] Comment on above: Performed By: #### C DP, BMP, CRP, PRCAL #### [place] [address] Margarine Maker: Sabas Lamb MD Abs.Imm.Granulocy te 0.03 k/uL Normal 0.00-0.30 [facility] Comment on above: Performed By: #### C DP, BMP, CRP, PRCAL #### [place] [address] Margarine Maker: Sabas Lamb MD Abs.Neutrophil (Seg) 7.04 k/uL Normal 1.50-8.10 [facility] Comment on above: Performed By: #### C DP, BMP, CRP, PRCAL #### [place] [address] Margarine Maker: Sabas Lamb MD Basophils/100 WBC (Bld) 0 % Normal 0-2 [facility] Comment on above: Performed By: #### C DP, BMP, CRP, PRCAL #### [address] [address] Margarine Maker: Sabas Lamb MD Eosinophils (Bld) [#/Vol] 0.08 10*3/uL Normal 0.00-0.44 [facility] Comment on above: Performed By: #### C DP, BMP, CRP, PRCAL #### [address] [address] Margarine Maker: Sabas Lamb MD Eosinophils/100 WBC (Bld) 1 % Normal 1-4 [facility] Comment on above: Performed By: #### C DP, BMP, CRP, PRCAL #### [place] [address] Margarine Maker: Sabas Lamb MD Erythrocyte distribution width (RBC) [Ratio] 12.0 % Normal 11.8-14.4 [facility] Comment on above: Performed By: #### C DP, BMP, CRP, PRCAL #### [place] [address] Margarine Maker: Sabas Lamb MD Hematocrit (Bld) [Volume fraction] 32.3 % Low 36.3-47.1 [facility] Comment on above: Performed By: #### C DP, BMP, CRP, PRCAL #### [place] [address] Margarine Maker: Sabas Lamb MD Hemoglobin (Bld) [Mass/Vol] 10.5 g/dL Low 11.9-15.1 [facility] Comment on above: Performed By: #### C DP, BMP, CRP, PRCAL #### [facility] [employer] [address] [place] [address] Margarine Maker: Sabas Lamb MD Immature granulocytes (Bld) [#/Vol] 0 % Normal 0 [facility] Comment on above: Performed By: #### C DP, BMP, CRP, PRCAL #### [facility] [employer] [address] [place] [address] Margarine Maker: Sabas Lamb MD Lymphocytes (Bld) [#/Vol] 1.45 10*3/uL Normal 1.10-3.70 [facility] Comment on above: Performed By: #### C DP, BMP, CRP, PRCAL #### [address] [address] Margarine Maker: Sabas Lamb MD Lymphocytes/100 WBC (Bld) 16 % Low 24-43 [facility] Comment on above: Performed By: #### C DP, BMP, CRP, PRCAL #### [place] [address] Margarine Maker: Sabas Lamb MD MCH (RBC) [Entitic mass] 31.3 pg Normal 25.2-33.5 [facility] Comment on above: Performed By: #### C DP, BMP, CRP, PRCAL #### [place] [address] Margarine Maker: Sabas Lamb MD MCHC (RBC) [Mass/Vol] 32.5 g/dL Normal 28.4-34.8 [facility] Comment on above: Performed By: #### C DP, BMP, CRP, PRCAL #### [address] [address] Margarine Maker: Sabas Lamb MD MCV (RBC) [Entitic vol] 96.1 fL Normal 82.6-102.9 [facility] Comment on above: Performed By: #### C DP, BMP, CRP, PRCAL #### [place] [address] Margarine Maker: Sabas Lamb MD Monocytes (Bld) [#/Vol] 0.54 10*3/uL Normal 0.10-1.20 [facility] Comment on above: Performed By: #### C DP, BMP, CRP, PRCAL #### [address] [address] Margarine Maker: Sabas Lamb MD Monocytes/100 WBC (Bld) 6 % Normal 3-12 [facility] Comment on above: Performed By: #### C DP, BMP, CRP, PRCAL #### [address] [address] Margarine Maker: Sabas Lamb MD Neutrophil (Seg) 77 % High 36-65 [facility] Comment on above: Performed By: #### C DP, BMP, CRP, PRCAL #### [address] [address] Margarine Maker: Sabas Lamb MD NRBC Automated 0.0 per 100 WBC Normal 0.0 [facility] Comment on above: Performed By: #### C DP, BMP, CRP, PRCAL #### [address] [address] Margarine Maker: Sabas Lamb MD Platelet mean volume (Bld) [Entitic vol] 11.7 fL Normal 8.1-13.5 [facility] Comment on above: Performed By: #### C DP, BMP, CRP, PRCAL #### [address] [address] Margarine Maker: Sabas Lamb MD Platelets (Bld) [#/Vol] 261 10*3/uL Normal 138-453 [facility] Comment on above: Performed By: #### C DP, BMP, CRP, PRCAL #### [address] [address] Margarine Maker: Sabas Lamb MD RBC (Bld) [#/Vol] 3.36 10*6/uL Low 3.95-5.11 [facility] Comment on above: Performed By: #### C DP, BMP, CRP, PRCAL #### [address] [address] Margarine Maker: Sabas Lamb MD WBC (Bld) [#/Vol] 9.2 10*3/uL Normal 3.5-11.3 [facility] Comment on above: Performed By: #### C DP, BMP, CRP, PRCAL #### [address] [address] Margarine Maker: Sabas Lamb MD Auto Diff Performed NOT REPORTED Normal [facility] Comment on above: Performed By: #### C DP, BMP, CRP, PRCAL #### [address] [address] Margarine Maker: Sabas Lamb MD Platelets (Bld) [#/Vol] NOT REPORTED Normal [facility] Comment on above: Performed By: #### C DP, BMP, CRP, PRCAL #### [address] [address] Margarine Maker: Sabas Lamb MD RBC morphology finding Nom (Bld) NOT REPORTED Normal [facility] Comment on above: Performed By: #### C DP, BMP, CRP, PRCAL #### [address] [address] Margarine Maker: Sabas Lamb MD WBC Morphology NOT REPORTED Normal [facility] Comment on above: Performed By: #### C DP, BMP, CRP, PRCAL #### [address] [address] Margarine Maker: Sabas Lamb MD Basic Metabolic Profon 10-25 (cont.) Normal [facility] Comment on above: Result Comment: Aver age GFR for 50-59 years old: 93 mL/min/1.73sq m Chronic Kidney Disease: <60 mL/min/1.73sq m Kidney failure: <15 mL/min/1.73sq m eGFR calculated using average adult body mass. Additional eGFR calculator available at: http://www.[employer]/multiple_crcl_2011.htm Performed By: #### C DP, BMP, CRP, PRCAL #### [facility] [employer] [address] [place] [address] Margarine Maker: Sabas Lamb MD Anion gap [Moles/Vol] 9 mmol/L Normal 9-17 [facility] Comment on above: Performed By: #### C DP, BMP, CRP, PRCAL #### [address] [address] Margarine Maker: Sabas Lamb MD Calcium [Mass/Vol] 8.5 mg/dL Low 8.6-10.4 [facility] Comment on above: Performed By: #### C DP, BMP, CRP, PRCAL #### [address] [address] Margarine Maker: Sabas Lamb MD Chloride [Moles/Vol] 100 mmol/L Normal 98-107 [facility] Comment on above: Performed By: #### C DP, BMP, CRP, PRCAL #### [facility] [employer] [address] [place] [address] Margarine Maker: Sabas Lamb MD CO2 [Moles/Vol] 28 mmol/L Normal 20-31 [facility] Comment on above: Performed By: #### C DP, BMP, CRP, PRCAL #### [facility] [employer] [address] [place] [address] Margarine Maker: Sabas Lamb MD Creatinine [Mass/Vol] 0.31 mg/dL Low 0.50-0.90 [facility] Comment on above: Performed By: #### C DP, BMP, CRP, PRCAL #### [facility] [employer] [address] [place] [address] Margarine Maker: Sabas Lamb MD GFR, Amer >60 Normal >60 [facility] Comment on above: Performed By: #### C DP, BMP, CRP, PRCAL #### [facility] [employer] [address] [place] [address] Margarine Maker: Sabas Lamb MD GFR,non Amer >60 Normal >60 [facility] Comment on above: Performed By: #### C DP, BMP, CRP, PRCAL #### [address] [address] Margarine Maker: Sabas Lamb MD Glucose [Mass/Vol] 111 mg/dL High 70-99 [facility] Comment on above: Performed By: #### C DP, BMP, CRP, PRCAL #### [address] [address] Margarine Maker: Sabas Lamb MD Potassium [Moles/Vol] 3.4 mmol/L Low 3.7-5.3 [facility] Comment on above: Performed By: #### C DP, BMP, CRP, PRCAL #### [address] [address] Margarine Maker: Sabas Lamb MD Sodium [Moles/Vol] 137 mmol/L Normal 135-144 [facility] Comment on above: Performed By: #### C DP, BMP, CRP, PRCAL #### [facility] [employer] [address] [place] [address] Margarine Maker: Sabas Lamb MD Urea nitrogen [Mass/Vol] 9 mg/dL Normal 6-20 [facility] Comment on above: Performed By: #### C DP, BMP, CRP, PRCAL #### [facility] [employer] [address] [place] [address] Margarine Maker: Sabas Lamb MD BUN/CRE Ratio NOT REPORTED Normal -20 [facility] Comment on above: Performed By: #### C DP, BMP, CRP, PRCAL #### [facility] [employer] [address] [place] [address] Margarine Maker: Sabas Lamb MD Staging: NOT REPORTED Normal [facility] Comment on above: Performed By: #### C DP, BMP, CRP, PRCAL #### [place] [address] Margarine Maker: Sabas Lamb MD CBC with Diffon 10-25-2018 Abs. Basophil 0.03 k/uL Normal 0.00-0.20 [facility] Comment on above: Performed By: #### C DP, BMP, CRP, PRCAL #### [place] [address] Margarine Maker: Sabas Lamb MD Abs.Imm.Granulocy te 0.05 k/uL Normal 0.00-0.30 [facility] Comment on above: Performed By: #### C DP, BMP, CRP, PRCAL #### [place] [address] Margarine Maker: Sabas Lamb MD Abs.Neutrophil (Seg) 10.20 k/uL High 1.50-8.10 [facility] Comment on above: Performed By: #### C DP, BMP, CRP, PRCAL #### [place] [address] Margarine Maker: Sabas Lamb MD Basophils/100 WBC (Bld) 0 % Normal 0-2 [facility] Comment on above: Performed By: #### C DP, BMP, CRP, PRCAL #### [place] [address] Margarine Maker: Sabas Lamb MD Eosinophils (Bld) [#/Vol] 0.04 10*3/uL Normal 0.00-0.44 [facility] Comment on above: Performed By: #### C DP, BMP, CRP, PRCAL #### [place] [address] Margarine Maker: Sabas Lamb MD Eosinophils/100 WBC (Bld) 0 % Low 1-4 [facility] Comment on above: Performed By: #### C DP, BMP, CRP, PRCAL #### [address] [address] Margarine Maker: Sabas Lamb MD Erythrocyte distribution width (RBC) [Ratio] 11.9 % Normal 11.8-14.4 [facility] Comment on above: Performed By: #### C DP, BMP, CRP, PRCAL #### [place] [address] Margarine Maker: Sabas Lamb MD Hematocrit (Bld) [Volume fraction] 31.5 % Low 36.3-47.1 [facility] Comment on above: Performed By: #### C DP, BMP, CRP, PRCAL #### [place] [address] Margarine Maker: Sabas Lamb MD Hemoglobin (Bld) [Mass/Vol] 10.4 g/dL Low 11.9-15.1 [facility] Comment on above: Performed By: #### C DP, BMP, CRP, PRCAL #### [address] [address] Margarine Maker: Sabas Lamb MD Immature granulocytes (Bld) [#/Vol] 0 % Normal 0 [facility] Comment on above: Performed By: #### C DP, BMP, CRP, PRCAL #### [address] [address] Margarine Maker: Sabas Lamb MD Lymphocytes (Bld) [#/Vol] 0.96 10*3/uL Low 1.10-3.70 [facility] Comment on above: Performed By: #### C DP, BMP, CRP, PRCAL #### [address] [address] Margarine Maker: Sabas Lamb MD Lymphocytes/100 WBC (Bld) 8 % Low 24-43 [facility] Comment on above: Performed By: #### C DP, BMP, CRP, PRCAL #### [address] [address] Margarine Maker: Sabas Lamb MD MCH (RBC) [Entitic mass] 31.9 pg Normal 25.2-33.5 [facility] Comment on above: Performed By: #### C DP, BMP, CRP, PRCAL #### [address] [address] Margarine Maker: Sabas aLmb MD MCHC (RBC) [Mass/Vol] 33.0 g/dL Normal 28.4-34.8 [facility] Comment on above: Performed By: #### C DP, BMP, CRP, PRCAL #### [address] [address] Margarine Maker: Sabas Lamb MD MCV (RBC) [Entitic vol] 96.6 fL Normal 82.6-102.9 [facility] Comment on above: Performed By: #### C DP, BMP, CRP, PRCAL #### [address] [address] Margarine Maker: Sabas Lamb MD Monocytes (Bld) [#/Vol] 0.75 10*3/uL Normal 0.10-1.20 [facility] Comment on above: Performed By: #### C DP, BMP, CRP, PRCAL #### [address] [address] Margarine Maker: Sabas Lamb MD Monocytes/100 WBC (Bld) 6 % Normal 3-12 [facility] Comment on above: Performed By: #### C DP, BMP, CRP, PRCAL #### [address] [address] Margarine Maker: Sabas Lamb MD Neutrophil (Seg) 86 % High 36-65 [facility] Comment on above: Performed By: #### C DP, BMP, CRP, PRCAL #### [address] [address] Margarine Maker: Sabas Lamb MD NRBC Automated 0.0 per 100 WBC Normal 0.0 [facility] Comment on above: Performed By: #### C DP, BMP, CRP, PRCAL #### [address] [address] Margarine Maker: Sabas Lamb MD Platelet mean volume (Bld) [Entitic vol] 11.4 fL Normal 8.1-13.5 [facility] Comment on above: Performed By: #### C DP, BMP, CRP, PRCAL #### [address] [address] Margarine Maker: Sabas Lamb MD Platelets (Bld) [#/Vol] 238 10*3/uL Normal 138-453 [facility] Comment on above: Performed By: #### C DP, BMP, CRP, PRCAL #### [address] [address] Margarine Maker: Sabas Lamb MD RBC (Bld) [#/Vol] 3.26 10*6/uL Low 3.95-5.11 [facility] Comment on above: Performed By: #### C DP, BMP, CRP, PRCAL #### [address] [address] Margarine Maker: Sabas Lamb MD WBC (Bld) [#/Vol] 12.0 10*3/uL High 3.5-11.3 [facility] Comment on above: Performed By: #### C DP, BMP, CRP, PRCAL #### [address] [address] Margarine Maker: Sabas Lamb MD Auto Diff Performed NOT REPORTED Normal [facility] Comment on above: Performed By: #### C DP, BMP, CRP, PRCAL #### [facility] [employer] [address] [place] [address] Margarine Maker: Sabas Lamb MD Platelets (Bld) [#/Vol] NOT REPORTED Normal [facility] Comment on above: Performed By: #### C DP, BMP, CRP, PRCAL #### [facility] [employer] [address] [place] [address] Margarine Maker: Sabas Lamb MD RBC morphology finding Nom (Bld) NOT REPORTED Normal [facility] Comment on above: Performed By: #### C DP, BMP, CRP, PRCAL #### [facility] [employer] [address] [place] [address] Margarine Maker: Sabas Lamb MD WBC Morphology NOT REPORTED Normal [facility] Comment on above: Performed By: #### C DP, BMP, CRP, PRCAL #### [facility] [employer] [address] [place] [address] Margarine Maker: Sabas Lamb MD Lipid Profileon 10-25-2018 Cholesterol [Mass/Vol] 114 mg/dL Normal <200 [facility] Comment on above: Result Comment: Cholesterol Guidelines: <200 Desirable 200-240 Borderline >240 Undesirable Performed By: #### C DP, BMP, CRP, PRCAL #### [address] [address] Margarine Maker: Sabas Lamb MD Cholesterol in HDL [Mass/Vol] 37 mg/dL Low >40 [facility] Comment on above: Result Comment: HDL Guidelines: <40 Undesirable 40-59 Borderline >59 Desirable Performed By: #### C DP, BMP, CRP, PRCAL #### [address] [address] Margarine Maker: Sabas Lamb MD Cholesterol in LDL [Mass/Vol] 63 mg/dL Normal 0-130 [facility] Comment on above: Result Comment: LDL Guidelines: <100 Desirable 100-129 Near to/above Desirable 130-159 Borderline >159 Undesirable Direct (measured) LDL and calculated LDL are not interchangeable tests. Performed By: #### C DP, BMP, CRP, PRCAL #### [facility] [address] [place] [address] Margarine Maker: Sabas Lamb MD Cholesterol.total /Cholesterol in HDL [Mass ratio] 3.1 {ratio} Normal <5 [facility] Comment on above: Performed By: #### C DP, BMP, CRP, PRCAL #### [facility] [employer] [address] [place] [address] Margarine Maker: Sabas Lamb MD Triglyceride [Mass/Vol] 71 mg/dL Normal <150 [facility] Comment on above: Result Comment: Triglyceride Guidelines: <150 Desirable 150-199 Borderline 200-499 High >499 Very high Based on AHA Guidelines for fasting triglyceride, March 2012. Performed By: #### C DP, BMP, CRP, PRCAL #### [facility] [employer] [address] [place] [address] Margarine Maker: Sabas Lamb MD Cholesterol in VLDL [Mass/Vol] NOT REPORTED Normal 1-30 [facility] Comment on above: Performed By: #### C DP, BMP, CRP, PRCAL #### [facility] [employer] [address] [place] [address] Margarine Maker: Sabas Lamb MD Specimen Rejectionon 019 ----- NOT REPORTED Normal [facility] Comment on above: Performed By: #### C DP, BMP, CRP, PRCAL #### [facility] [employer] [address] [place] [address] Margarine Maker: Sabas Lamb MD Reason for rejection Unable to perform testing: Specimen mislabeled. Normal [facility] Comment on above: Performed By: #### C DP, BMP, CRP, PRCAL #### [address] [address] Margarine Maker: Sabas Lamb MD Source of sample .BLOOD Normal [facility] Comment on above: Performed By: #### C DP, BMP, CRP, PRCAL #### [address] [address] Margarine Maker: Sabas Lamb MD Test ordered BMP CDP Normal [facility] Comment on above: Performed By: #### C DP, BMP, CRP, PRCAL #### [address] [address] Margarine Maker: Sabas Lamb MD APTTon 10-24-2018 aPTT Coag (Bld) [Time] 26.3 s Normal 20.5-30.5 [facility] Comment on above: Performed By: #### C DP, BMP, CRP, PRCAL #### [address] [address] Margarine Maker: Sabas Lamb MD Basic Metabolic Profon 10-24 (cont.) [facility] Comment on above: Result Comment: Aver age GFR for 50-59 years old: 93 mL/min/1.73sq m Chronic Kidney Disease: <60 mL/min/1.73sq m Kidney failure: <15 mL/min/1.73sq m eGFR calculated using average adult body mass. Additional eGFR calculator available at: http://www.[employer].com/multiple_crcl_2012.htm Performed By: #### C DP, BMP, CRP, PRCAL #### [address] [address] Margarine Maker: Sabas Lamb MD Anion gap [Moles/Vol] 14 mmol/L Normal 9-17 [facility] Comment on above: Performed By: #### C DP, BMP, CRP, PRCAL #### [address] [id number] Margarine Maker: Sabas Lamb MD Calcium [Mass/Vol] 9.1 mg/dL Normal 8.6-10.4 [facility] Comment on above: Performed By: #### C DP, BMP, CRP, PRCAL #### [facility] [employer] [address] [place] [address] Margarine Maker: Sabas Lamb MD Chloride [Moles/Vol] 101 mmol/L Normal 98-107 [facility] Comment on above: Performed By: #### C DP, BMP, CRP, PRCAL #### [facility] [employer] [address] [place] [address] Margarine Maker: Sabas Lamb MD CO2 [Moles/Vol] 23 mmol/L Normal 20-31 [facility] Comment on above: Performed By: #### C DP, BMP, CRP, PRCAL #### [facility] [employer] [address] [place] [address] Margarine Maker: Sabas Lamb MD Creatinine [Mass/Vol] 0.34 mg/dL Low 0.50-0.90 [facility] Comment on above: Performed By: #### C DP, BMP, CRP, PRCAL #### [address] [address] Margarine Maker: Sabas Lamb MD GFR, Amer >60 Normal >60 [facility] Comment on above: Performed By: #### C DP, BMP, CRP, PRCAL #### [facility] [employer] [address] [place] [address] Margarine Maker: Sabas Lamb MD GFR,non Amer >60 Normal >60 [facility] Comment on above: Performed By: #### C DP, BMP, CRP, PRCAL #### [facility] [employer] [address] [place] [address] Margarine Maker: Sabas Lamb MD Glucose [Mass/Vol] 86 mg/dL Normal 70-99 [facility] Comment on above: Performed By: #### C DP, BMP, CRP, PRCAL #### [facility] [employer] [address] [place] [address] Margarine Maker: Sabas Lamb MD Potassium [Moles/Vol] 3.9 mmol/L Normal 3.7-5.3 [facility] Comment on above: Performed By: #### C DP, BMP, CRP, PRCAL #### [facility] [employer] [address] [place] [address] Margarine Maker: Sabas Lamb MD Sodium [Moles/Vol] 138 mmol/L Normal 135-144 [facility] Comment on above: Performed By: #### C DP, BMP, CRP, PRCAL #### [address] [address] Margarine Maker: Sabas Lamb MD Urea nitrogen [Mass/Vol] 11 mg/dL Normal 6-20 [facility] Comment on above: Performed By: #### C DP, BMP, CRP, PRCAL #### [address] [address] Margarine Maker: Sabas Lamb MD BUN/CRE Ratio NOT REPORTED Normal -20 [facility] Comment on above: Performed By: #### C DP, BMP, CRP, PRCAL #### [facility] [employer] [address] [place] [address] Margarine Maker: Sabas Lamb MD Staging: NOT REPORTED Normal [facility] Comment on above: Performed By: #### C DP, BMP, CRP, PRCAL #### [facility] [employer] [address] [place] [address] Margarine Maker: Sabas Lamb MD CBC with Diffon 10-24-2018 Abs. Basophil 0.03 k/uL Normal 0.00-0.20 [facility] Comment on above: Performed By: #### C DP, BMP, CRP, PRCAL #### [address] [address] Margarine Maker: Sabas Lamb MD Abs.Imm.Granulocy te 0.05 k/uL Normal 0.00-0.30 [facility] Comment on above: Performed By: #### C DP, BMP, CRP, PRCAL #### [place] [address] Margarine Maker: Sabas Lamb MD Abs.Neutrophil (Seg) 12.06 k/uL High 1.50-8.10 [facility] Comment on above: Performed By: #### C DP, BMP, CRP, PRCAL #### [place] [address] Margarine Maker: Sabas Lamb MD Basophils/100 WBC (Bld) 0 % Normal 0-2 [facility] Comment on above: Performed By: #### C DP, BMP, CRP, PRCAL #### [address] [address] Margarine Maker: Sabas Lamb MD Eosinophils (Bld) [#/Vol] 10*3/uL Normal 0.00-0.44 [facility] Comment on above: Performed By: #### C DP, BMP, CRP, PRCAL #### [address] [address] Margarine Maker: Sabas Lamb MD Eosinophils/100 WBC (Bld) 0 % Low 1-4 [facility] Comment on above: Performed By: #### C DP, BMP, CRP, PRCAL #### [facility] [employer] [address] [place] [address] Margarine Maker: Sabas Lamb MD Erythrocyte distribution width (RBC) [Ratio] 11.9 % Normal 11.8-14.4 [facility] Comment on above: Performed By: #### C DP, BMP, CRP, PRCAL #### [address] [address] Margarine Maker: Sabas Lamb MD Hematocrit (Bld) [Volume fraction] 39.6 % Normal 36.3-47.1 [facility] Comment on above: Performed By: #### C DP, BMP, CRP, PRCAL #### [place] [address] Margarine Maker: Sabas Lamb MD Hemoglobin (Bld) [Mass/Vol] 12.3 g/dL Normal 11.9-15.1 [facility] Comment on above: Performed By: #### C DP, BMP, CRP, PRCAL #### [place] [address] Margarine Maker: Sabas Lamb MD Immature granulocytes (Bld) [#/Vol] 0 % Normal 0 [facility] Comment on above: Performed By: #### C DP, BMP, CRP, PRCAL #### [place] [address] Margarine Maker: Sabas Lamb MD Lymphocytes (Bld) [#/Vol] 0.82 10*3/uL Low 1.10-3.70 [facility] Comment on above: Performed By: #### C DP, BMP, CRP, PRCAL #### [address] [address] Margarine Maker: Sabas Lamb MD Lymphocytes/100 WBC (Bld) 6 % Low 24-43 [facility] Comment on above: Performed By: #### C DP, BMP, CRP, PRCAL #### [address] [address] Margarine Maker: Sabas Lamb MD MCH (RBC) [Entitic mass] 31.1 pg Normal 25.2-33.5 [facility] Comment on above: Performed By: #### C DP, BMP, CRP, PRCAL #### [address] [address] Margarine Maker: Sabas Lamb MD MCHC (RBC) [Mass/Vol] 31.1 g/dL Normal 28.4-34.8 [facility] Comment on above: Performed By: #### C DP, BMP, CRP, PRCAL #### [place] [address] Margarine Maker: Sabas Lamb MD MCV (RBC) [Entitic vol] 100.3 fL Normal 82.6-102.9 [facility] Comment on above: Performed By: #### C DP, BMP, CRP, PRCAL #### [place] [address] Margarine Maker: Sabas Lamb MD Monocytes (Bld) [#/Vol] 0.80 10*3/uL Normal 0.10-1.20 [facility] Comment on above: Performed By: #### C DP, BMP, CRP, PRCAL #### [place] [address] Margarine Maker: Sabas Lamb MD Monocytes/100 WBC (Bld) 6 % Normal 3-12 [facility] Comment on above: Performed By: #### C DP, BMP, CRP, PRCAL #### [place] [address] Margarine Maker: Sabas Lamb MD Neutrophil (Seg) 88 % High 36-65 [facility] Comment on above: Performed By: #### C DP, BMP, CRP, PRCAL #### [address] [address] Margarine Maker: Sabas Lamb MD NRBC Automated 0.0 per 100 WBC Normal 0.0 [facility] Comment on above: Performed By: #### C DP, BMP, CRP, PRCAL #### [address] [address] Margarine Maker: Sabas Lamb MD Platelet mean volume (Bld) [Entitic vol] 11.5 fL Normal 8.1-13.5 [facility] Comment on above: Performed By: #### C DP, BMP, CRP, PRCAL #### [address] [address] Margarine Maker: Sabas Lamb MD Platelets (Bld) [#/Vol] 261 10*3/uL Normal 138-453 [facility] Comment on above: Performed By: #### C DP, BMP, CRP, PRCAL #### [address] [address] Margarine Maker: Sabas Lamb MD RBC (Bld) [#/Vol] 3.95 10*6/uL Normal 3.95-5.11 [facility] Comment on above: Performed By: #### C DP, BMP, CRP, PRCAL #### [address] [address] Margarine Maker: Sabas Lamb MD WBC (Bld) [#/Vol] 13.8 10*3/uL High 3.5-11.3 [facility] Comment on above: Performed By: #### C DP, BMP, CRP, PRCAL #### [facility] [employer] [address] [place] [address] Margarine Maker: Sabas Lamb MD Auto Diff Performed NOT REPORTED Normal [facility] Comment on above: Performed By: #### C DP, BMP, CRP, PRCAL #### [facility] [employer] [address] [place] [address] Margarine Maker: Sabas Lamb MD Platelets (Bld) [#/Vol] NOT REPORTED Normal [facility] Comment on above: Performed By: #### C DP, BMP, CRP, PRCAL #### [facility] [employer] [address] [place] [address] Margarine Maker: Sabas Lamb MD RBC morphology finding Nom (Bld) NOT REPORTED Normal [facility] Comment on above: Performed By: #### C DP, BMP, CRP, PRCAL #### [facility] [employer] [address] [place] [address] Margarine Maker: Sabas Lamb MD WBC Morphology NOT REPORTED Normal [facility] Comment on above: Performed By: #### C DP, BMP, CRP, PRCAL #### [address] [id number] Margarine Maker: Sabas Lamb MD PTon 10-24-2018 INR Coag (PPP) [Relative time] 1.0 {INR} Normal [facility] Comment on above: Result Comment: Therapeutic Range: Moderate Anticoagulant Intensity: INR = 2.0-3.0 High Anticoagulant Intensity: INR = 2.5-3.5 Performed By: #### C DP, BMP, CRP, PRCAL #### [address] [id number] Margarine Maker: Sabas Lamb MD PT Coag (PPP) [Time] 10.8 s Normal 9.0-12.0 [facility] Comment on above: Performed By: #### C DP, BMP, CRP, PRCAL #### [facility] [employer] [address] [place] [address] [phone] Margarine Maker: Sabas Lamb MD Basic Metabolic Profon 10-23 (cont.) Normal [facility] Comment on above: Result Comment: Aver age GFR for 50-59 years old: 93 mL/min/1.73sq m Chronic Kidney Disease: <60 mL/min/1.73sq m Kidney failure: <15 mL/min/1.73sq m eGFR calculated using average adult body mass. Additional eGFR calculator available at: http://www.[employer]ordic [employer]/multiple_crcl_2012.htm Performed By: #### C DP, BMP, CRP, PRCAL #### [facility] [employer] [address] [place] [address] Margarine Maker: Sabas Lamb MD Anion gap [Moles/Vol] 14 mmol/L Normal 9-17 [facility] Comment on above: Performed By: #### C DP, BMP, CRP, PRCAL #### [facility] [employer] [address] [place] [address] Margarine Maker: Sabas Lamb MD Calcium [Mass/Vol] 8.2 mg/dL Low 8.6-10.4 [facility] Comment on above: Performed By: #### C DP, BMP, CRP, PRCAL #### [facility] [employer] [address] [place] [address] Margarine Maker: Sabas Lamb MD Chloride [Moles/Vol] 107 mmol/L Normal 98-107 [facility] Comment on above: Performed By: #### C DP, BMP, CRP, PRCAL #### [facility] [employer] [address] [place] [address] Margarine Maker: Sabas Lamb MD CO2 [Moles/Vol] 20 mmol/L Normal 20-31 [facility] Comment on above: Performed By: #### C DP, BMP, CRP, PRCAL #### [facility] [employer] [address] [place] [address] Margarine Maker: Sabas Lamb MD Creatinine [Mass/Vol] 0.42 mg/dL Low 0.50-0.90 [facility] Comment on above: Performed By: #### C DP, BMP, CRP, PRCAL #### [facility] [employer] [address] [place] [address] Margarine Maker: Sabas Lamb MD GFR, Amer >60 Normal >60 [facility] Comment on above: Performed By: #### C DP, BMP, CRP, PRCAL #### [address] [address] Margarine Maker: Sabas Lamb MD GFR,non Amer >60 Normal >60 [facility] Comment on above: Performed By: #### C DP, BMP, CRP, PRCAL #### [address] [address] Margarine Maker: Sabas Lamb MD Glucose [Mass/Vol] 87 mg/dL Normal 70-99 [facility] Comment on above: Performed By: #### C DP, BMP, CRP, PRCAL #### [address] [address] Margarine Maker: Sabas Lamb MD Potassium [Moles/Vol] 3.9 mmol/L Normal 3.7-5.3 [facility] Comment on above: Performed By: #### C DP, BMP, CRP, PRCAL #### [address] [address] Margarine Maker: Sabas Lamb MD Sodium [Moles/Vol] 141 mmol/L Normal 135-144 [facility] Comment on above: Performed By: #### C DP, BMP, CRP, PRCAL #### [address] [address] Margarine Maker: Sabas Lamb MD Urea nitrogen [Mass/Vol] 14 mg/dL Normal -20 [facility] Comment on above: Performed By: #### C DP, BMP, CRP, PRCAL #### [facility] [employer] [address] [place] [address] Margarine Maker: Sabas Lamb MD BUN/CRE Ratio NOT REPORTED Normal -20 [facility] Comment on above: Performed By: #### C DP, BMP, CRP, PRCAL #### [facility] [employer] [address] [place] [address] Margarine Maker: Sabas Lamb MD Staging: NOT REPORTED Normal [facility] Comment on above: Performed By: #### C DP, BMP, CRP, PRCAL #### [address] [address] Margarine Maker: Sabas Lamb MD C-Reactive Proteinon 019 CRP [Mass/Vol] 40.6 mg/L High 0.0-5.0 [facility] Comment on above: Performed By: #### C DP, BMP, CRP, PRCAL #### [facility] [employer] [address] [place] [address] Margarine Maker: Sabas Lamb MD CBC with Diffon 10-23-2018 Abs. Basophil 0.03 k/uL Normal 0.00-0.20 [facility] Comment on above: Performed By: #### C DP, BMP, CRP, PRCAL #### [address] [address] Margarine Maker: Sabas Lamb MD Abs.Imm.Granulocy te 0.05 k/uL Normal 0.00-0.30 [facility] Comment on above: Performed By: #### C DP, BMP, CRP, PRCAL #### [facility] [employer] [address] [place] [address] Margarine Maker: Sabas Lamb MD Abs.Neutrophil (Seg) 13.74 k/uL High 1.50-8.10 [facility] Comment on above: Performed By: #### C DP, BMP, CRP, PRCAL #### [facility] [employer] [address] [place] [address] Margarine Maker: Sabas Lamb MD Basophils/100 WBC (Bld) 0 % Normal 0-2 [facility] Comment on above: Performed By: #### C DP, BMP, CRP, PRCAL #### [facility] [employer] [address] [place] [address] Margarine Maker: Sabas Lamb MD Eosinophils (Bld) [#/Vol] 10*3/uL Normal 0.00-0.44 [facility] Comment on above: Performed By: #### C DP, BMP, CRP, PRCAL #### [address] [address] Margarine Maker: Sabas Lamb MD Eosinophils/100 WBC (Bld) 0 % Low 1-4 [facility] Comment on above: Performed By: #### C DP, BMP, CRP, PRCAL #### [address] [address] Margarine Maker: Sabas Lamb MD Erythrocyte distribution width (RBC) [Ratio] 12.1 % Normal 11.8-14.4 [facility] Comment on above: Performed By: #### C DP, BMP, CRP, PRCAL #### [address] [address] Margarine Maker: Sabas Lamb MD Hematocrit (Bld) [Volume fraction] 35.7 % Low 36.3-47.1 [facility] Comment on above: Performed By: #### C DP, BMP, CRP, PRCAL #### [address] [address] Margarine Maker: Sabas Lamb MD Hemoglobin (Bld) [Mass/Vol] 11.5 g/dL Low 11.9-15.1 [facility] Comment on above: Performed By: #### C DP, BMP, CRP, PRCAL #### [address] [address] Margarine Maker: Sabas Lamb MD Immature granulocytes (Bld) [#/Vol] 0 % Normal 0 [facility] Comment on above: Performed By: #### C DP, BMP, CRP, PRCAL #### [address] [address] Margarine Maker: Sabas Lamb MD Lymphocytes (Bld) [#/Vol] 1.21 10*3/uL Normal 1.10-3.70 [facility] Comment on above: Performed By: #### C DP, BMP, CRP, PRCAL #### [address] [address] Margarine Maker: Sabas Lamb MD Lymphocytes/100 WBC (Bld) 8 % Low 24-43 [facility] Comment on above: Performed By: #### C DP, BMP, CRP, PRCAL #### [address] [address] Margarine Maker: Sabas Lamb MD MCH (RBC) [Entitic mass] 31.8 pg Normal 25.2-33.5 [facility] Comment on above: Performed By: #### C DP, BMP, CRP, PRCAL #### [address] [address] Margarine Maker: Sabas Lamb MD MCHC (RBC) [Mass/Vol] 32.2 g/dL Normal 28.4-34.8 [facility] Comment on above: Performed By: #### C DP, BMP, CRP, PRCAL #### [address] [address] Margarine Maker: Sabas Lamb MD MCV (RBC) [Entitic vol] 98.6 fL Normal 82.6-102.9 [facility] Comment on above: Performed By: #### C DP, BMP, CRP, PRCAL #### [address] [address] Margarine Maker: Sabas Lamb MD Monocytes (Bld) [#/Vol] 1.01 10*3/uL Normal 0.10-1.20 [facility] Comment on above: Performed By: #### C DP, BMP, CRP, PRCAL #### [address] [address] Margarine Maker: Sabas Lamb MD Monocytes/100 WBC (Bld) 6 % Normal 3-12 [facility] Comment on above: Performed By: #### C DP, BMP, CRP, PRCAL #### [address] [address] Margarine Maker: Sabas Lamb MD Neutrophil (Seg) 86 % High 36-65 [facility] Comment on above: Performed By: #### C DP, BMP, CRP, PRCAL #### [address] [address] Margarine Maker: Sabas Lamb MD NRBC Automated 0.0 per 100 WBC Normal 0.0 [facility] Comment on above: Performed By: #### C DP, BMP, CRP, PRCAL #### [address] [address] Margarine Maker: Sabas Lamb MD Platelet mean volume (Bld) [Entitic vol] 11.7 fL Normal 8.1-13.5 [facility] Comment on above: Performed By: #### C DP, BMP, CRP, PRCAL #### [address] [address] Margarine Maker: Sabas Lamb MD Platelets (Bld) [#/Vol] 268 10*3/uL Normal 138-453 [facility] Comment on above: Performed By: #### C DP, BMP, CRP, PRCAL #### [facility] [employer] [address] [place] [address] Margarine Maker: Sabas Lamb MD RBC (Bld) [#/Vol] 3.62 10*6/uL Low 3.95-5.11 [facility] Comment on above: Performed By: #### C DP, BMP, CRP, PRCAL #### [address] [address] Margarine Maker: Sabas Lamb MD WBC (Bld) [#/Vol] 16.1 10*3/uL High 3.5-11.3 [facility] Comment on above: Performed By: #### C DP, BMP, CRP, PRCAL #### [address] [address] Margarine Maker: Sabas Lamb MD Auto Diff Performed NOT REPORTED Normal [facility] Comment on above: Performed By: #### C DP, BMP, CRP, PRCAL #### [address] [address] Margarine Maker: Sabas Lamb MD Platelets (Bld) [#/Vol] NOT REPORTED Normal [facility] Comment on above: Performed By: #### C DP, BMP, CRP, PRCAL #### [address] [address] Margarine Maker: Sabas Lamb MD RBC morphology finding Nom (Bld) NOT REPORTED Normal [facility] Comment on above: Performed By: #### C DP, BMP, CRP, PRCAL #### [address] [address] Margarine Maker: Sabas Lamb MD WBC Morphology NOT REPORTED Normal [facility] Comment on above: Performed By: #### C DP, BMP, CRP, PRCAL #### [address] [address] Margarine Maker: Sabas Lamb MD CT HEAD WO CONTRASTon [...] left sphenoid sinus mucosal thickening. SOFT TISSUES/SKULL: Alpa holes are now seen in the right frontal and parietal bones. There is overlying subcutaneous soft tissue swelling and gas. IMPRESSION: Improving right subdural collection with diminished midline shift after alpa hole placement. Interpreted by: Cas Contreras MD Signed by: Cas Contreras MD 10/23/18 Final result Normal [facility] MRI BRAIN W CONTRASTon 10-23 MRI BRAIN [...] Freddie Maldonado MD 10/23/18 Final result Normal [facility] OPERATIVE REPORTon 10-23-201 9 OPERATIVE REPORT [address] [id number] OPERATIVE REPORT PATIENT NAME: DACIA FINLEY : 1960 MED REC NO: [id number] ROOM: [facility] ACCOUNT NO: [id number] ADMIT DATE: 10/22/2018 PROVIDER: Meera Rojas DATE [...] with lightheadedness and coughing. She presented at [facility] ER earlier today due to these complaints and was found to have a sizeable right-sided subdural hematoma. She was transferred to [place] for further management. She was reported to be neurologically intact when at the outside hospital, but upon arrival to the ER at [place], she was noted to have some mild [...] evidence of complication. MEERA ROJAS DL/[id number] Doc#: [id number] CC: Normal [facility] Procalcitoninon 10-23-2018 Procalcitonin 0.06 ng/mL Normal <0.09 [facility] Comment on above: Result Comment: Suspected Sepsis: [...] entered into the Change in Procalcitonin Calculator ([email or web address]-ccs-eaiesxpufd.[employer]) to determine the patient's Mortality Risk Prognosis Performed By: #### C DP, BMP, CRP, PRCAL #### [place] [address] Margarine Maker: Sabas Lamb MD XR CHEST PORTABLEon 10-24-19 [...] Carlos Carlson MD 10/23/18 Final result Normal [facility] Platelets,Transfuseon 2018 Platelets,Transfu se Unit Number [id number] Blood Component Type Leukocyte Reduced Irradiated Plateletpheresis Unit Division 00 Status of Unit TRANSFUSED Transfusion Status OK TO TRANSFUSE Normal [facility] Comment on above: Performed By: #### T PLT #### [facility] [address] [place] [address] Margarine Maker: Sabas Lamb MD Type + Screenon 10-22-2018 Type + Screen Sample Expiration Arm Band Number BE [id number] ABO/Rh(D) A POSITIVE Antibody Screen NEGATIVE Normal [facility] Comment on above: Performed By: #### T YS #### [place] [address] [place] [address] Margarine Maker: Sabas Lamb MD Discharge Summaryon 06-07-20 Discharge Summary MR#: [id number] Admitted: 06/05/2017 Discharged: 06/06/2017 Date of : 1960 Physician: Rachele Post DO DISCHARGE SUMMARYDISCHARGE SERVICE: CCU.PRIMARY DIAGNOSIS: Acute coronary syndrome.SECONDARY DIAGNOSIS: Migraine.PROCEDURE: Percutaneous coronary intervention with stent placement.HOSPITAL COURSE: This is a 56-year-old female with past medical history ofmigraines, who was transferred from [facility]. She presented therewith chest discomfort and was found to have EKG abnormalities. In the lastmonth, the patient reported 3 episodes of chest pain with the latest being. The chest pain was also associated with sweating, shortnessof breath, and nausea. She was transferred from [facility] andadmitted to the CCU. The patient's troponins were remained negative, butwith her chest pain and EKG changes, she was taken to the cook house laborer. In thecath lab, this showed 90% stenosis [...] Dict: 06/06/2017/02:36 P/ROSI Keyate Trans: 06/07/2017 09:17 A/Kong_JN:[id number]: Ryan Arevalo M.D. [address] [facility] [address] Kel Bueno M.D. [address] [place] [address] [address] [facility] BASIC METABOLIC PANELon 12-3 Calcium 9.3 mg/dL Normal 8.6-10.[address] [facility] Comment on above: Order Comment: Unkno wn Performed By: #### 0 0071, [id number] ####[facility] [place] [address], [facility] Chloride 105 mmol/L Normal 98-[address] [facility] Comment on above: Order Comment: Unkno wn Performed By: #### 0 0071, 56595 ####[facility] [place] [address], [facility] CO2 24 mmol/L Normal 21-[address] [facility] Comment on above: Order Comment: Unkno wn Performed By: #### 0 0071, 25680 ####[facility] [place] [address], [facility] Creatinine 0.72 mg/dL Normal 0.60-1.[address] [facility] Comment on above: Order Comment: Unkno wn Performed By: #### 0 0071, 53784 ####[facility] [place] [address], [facility] eGFR (black) mL/min/{1.73_m2} Normal >[address] [facility] Comment on above: Order Comment: Unkno wn Performed By: #### 0 0071, 05071 ####[facility] [facility].[address] eGFR (non-black) mL/min/{1.73_m2} Normal >[address] [facility] Comment on above: Order Comment: Unkno wn Performed By: #### 0 0071, 39705 ####[facility] [place] [address], [facility] Glucose mass conc 89 mg/dL Normal 70-[address] [facility] Comment on above: Order Comment: Unkno wn Performed By: #### 0 0071, 23377 ####[facility] [place] [address], [facility] Potassium molar conc 3.8 mmol/L Normal 3.5-5.[address] [facility] Comment on above: Order Comment: Unkno wn Performed By: #### 0 0071, 25777 ####[facility] [place] [address], [facility] Sodium 139 mmol/L Normal 136-[address] [facility] Comment on above: Order Comment: Unkno wn Performed By: #### 0 1, 95331 ####[facility] [facility] [place] [address] [place] [address] Urea nitrogen 14 mg/dL Normal 7-[address] [facility] Comment on above: Order Comment: Unkno wn Performed By: #### 0 007, 32545 ####[facility] [facility] [place] [id number] [place] [address] CBC COMPLETE BLOOD COUNTon Erythrocyte distribution width Auto Ratio (RBC) 13.3 % Normal 11.5-16.[address] [facility] Comment on above: Order Comment: Unkno wn Performed By: #### 5 0608 ####[facility] [facility].[address] Erythrocytes (RBC) 4.43 mill/mm3 Normal 3.50-5.[address] [facility] Comment on above: Order Comment: Unkno wn Performed By: #### 5 0608 ####[facility] [facility], [place] [id number] [place] [address] Hematocrit (HCT) 40.9 % Normal 36.0-48.[address] [facility] Comment on above: Order Comment: Unkno wn Performed By: #### 5 0608 ####[facility] [facility], [place] [id number] [place] [address] Hemoglobin mass conc (Bld) 13.6 g/dL Normal 12.0-15.[address] [facility] Comment on above: Order Comment: Unkno wn Performed By: #### 5 0608 ####[facility] [place] [address], [facility] MCH 30.7 pg Normal 24.0-32.[address] [facility] Comment on above: Order Comment: Unkno wn Performed By: #### 5 0608 ####[facility] [facility] [place] [address], [facility] MCHC mass conc (RBC) 33.2 g/dL Normal 32.0-36.[address] [facility] Comment on above: Order Comment: Unkno wn Performed By: #### 5 0608 ####[facility] MCV 92.2 fL Normal 80.0-100.[address] [facility] Comment on above: Order Comment: Unkno wn Performed By: #### 5 0608 ####[facility] PLAT CNT 194 Thou/mm3 Normal 100-[address] [facility] Comment on above: Order Comment: Unkno wn Performed By: #### 5 0608 ####[place] [address] [address] WBC (Leukocytes) 10.8 Thou/mm3 High 4.0-10.[address] [facility] Comment on above: Order Comment: Unkno wn Performed By: #### 5 0608 ####[facility] Cardiovascular Lab Reporton 06-06-2017 Cardiovascular Lab Report [facility] MR #: [id number] Physician: Elías Zhao M.D.Medicine Service Date: 06/05/2017Division of Birthdate: 1960Cardiology Room #: 3CD [id number] [facility]Services[place] [address]Phone Fax Cardiovascular Laboratory ReportINDICATION: Dacia Finley is [...] signed informed consent. She was brought to cook house laborer in a [place]. The right groin area was prepped and draped in usual fashion.Using micropuncture technique, the right common femoral artery wasaccessed. The inner cannula was advanced and limited right femoralangiography was performed followed by upsizing to a 5-Greenlandic x 11 cmsheath. Bilateral selective carotid angiography was then performed using5-Greenlandic JL4 and JR4 diagnostic catheters. Catheters were removed.Heparin was administered intravenously and therapeutic ACT confirmed duringthe procedure. A 5-Greenlandic JR4 guiding catheter was advanced and used toengage the right coronary ostium. A [employer] wire was advanced into thedistal RCA. Balloon [...] stentfollowed by post dilatation using [place] [employer] [place] 3.0 x 20 mm noncompliantballoon inflated at [...] 06/05/2017/03:03 P/Elías Cannon M.D.Date Trans: 06/06/2017 07:01 A/Kong_JN:[id number]: Ryan Arevalo M.D. [facility] [address] [facility] [id number] Kel Bueno M.D. [facility]5 [facility] [address] [facility] MAGNESIUM BLOODon 06-06-2017 Magnesium 1.9 mg/dL Normal 1.9-2.[address] [facility] Comment on above: Performed By: #### 5 0608 ####[facility]3000 [facility].[address] APTTon 06-05-2017 aPTT 32.6 s Normal 25.0-35.[address] [facility] Comment on above: Order Comment: No: [...] THIS PURPOSE. Performed By: #### 5 6101, [id number] ####[facility]3000 [place] [address], [facility] BASIC METABOLIC PANELon - Calcium 8.9 mg/dL Normal 8.6-10.[address] [facility] Comment on above: Order Comment: No: D o not add to previous draw Performed By: #### 0 0071 ####[facility] [place] [address], [facility] Chloride 106 mmol/L Normal 98-[address] [facility] Comment on above: Order Comment: No: D o not add to previous draw Performed By: #### 0 0071 ####[facility]3000 [place] [address], [facility] CO2 28 mmol/L Normal 21-[address] [facility] Comment on above: Order Comment: No: D o not add to previous draw Performed By: #### 0 0071 ####[facility] [place] [address], [facility] Creatinine 0.76 mg/dL Normal 0.60-1.[address] [facility] Comment on above: Order Comment: No: D o not add to previous draw Performed By: #### 0 0071 ####[facility] [place] [address], [facility] eGFR (black) mL/min/{1.73_m2} Normal >[address] [facility] Comment on above: Order Comment: No: D o not add to previous draw Performed By: #### 0 0071 ####[facility] [place] [address], [facility] eGFR (non-black) mL/min/{1.73_m2} Normal >[address] [facility] Comment on above: Order Comment: No: D o not add to previous draw Performed By: #### 0 0071 ####[facility] [place] [address], [facility] Glucose mass conc 88 mg/dL Normal 70-[address] [facility] Comment on above: Order Comment: No: D o not add to previous draw Performed By: #### 0 0071 ####[facility] [place] [address], [facility] Potassium molar conc 3.8 mmol/L Normal 3.5-5.[address] [facility] Comment on above: Order Comment: No: D o not add to previous draw Performed By: #### 0 0071 ####[facility] [place] [address], [facility] Sodium 138 mmol/L Normal 136-[address] [facility] Comment on above: Order Comment: No: D o not add to previous draw Performed By: #### 0 0071 ####[facility] [id number], [facility] Urea nitrogen 10 mg/dL Normal 7-[address] [facility] Comment on above: Order Comment: No: D o not add to previous draw Performed By: #### 0 0071 ####[facility] CBC COMPLETE BLOOD COUNTon Erythrocyte distribution width Auto Ratio (RBC) 13.9 % Normal 11.5-16.[address] [facility] Comment on above: Order Comment: No: D o not add to previous draw Performed By: #### 5 0608 ####[facility] Erythrocytes (RBC) 4.66 mill/mm3 Normal 3.50-5.[address] [facility] Comment on above: Order Comment: No: D o not add to previous draw Performed By: #### 5 0608 ####[facility]3000 [facility].[address] Hematocrit (HCT) 42.9 % Normal 36.0-48.[address] [facility] Comment on above: Order Comment: No: D o not add to previous draw Performed By: #### 5 0608 ####[place] [address] [facility].[address] Hemoglobin mass conc (Bld) 14.2 g/dL Normal 12.0-15.[address] [facility] Comment on above: Order Comment: No: D o not add to previous draw Performed By: #### 5 0608 ####[facility] MCH 30.5 pg Normal 24.0-32.[address] [facility] Comment on above: Order Comment: No: D o not add to previous draw Performed By: #### 5 0608 ####[facility] MCHC mass conc (RBC) 33.1 g/dL Normal 32.0-36.[address] [facility] Comment on above: Order Comment: No: D o not add to previous draw Performed By: #### 5 0608 ####[facility] [place] [address], [facility] MCV 92.0 fL Normal 80.0-100.[address] [facility] Comment on above: Order Comment: No: D o not add to previous draw Performed By: #### 5 0608 ####[facility] [place] [address], [facility] PLAT CNT 178 Thou/mm3 Normal 100-[address] [facility] Comment on above: Order Comment: No: D o not add to previous draw Performed By: #### 5 0608 ####[facility] WBC (Leukocytes) 6.6 Thou/mm3 Normal 4.0-10.[address] [facility] Comment on above: Order Comment: No: D o not add to previous draw Performed By: #### 5 0608 ####[facility] Erythrocyte distribution width Auto Ratio (RBC) 13.1 % Normal 11.5-16.[address] [facility] Comment on above: Order Comment: No: D o not add to previous draw Performed By: #### 5 0608 ####[facility] Erythrocytes (RBC) 4.49 mill/mm3 Normal 3.50-5.[address] [facility] Comment on above: Order Comment: No: D o not add to previous draw Performed By: #### 5 0608 ####[facility] Hematocrit (HCT) 41.7 % Normal 36.0-48.[address] [facility] Comment on above: Order Comment: No: D o not add to previous draw Performed By: #### 5 0608 ####[facility] [place] [address], [facility] Hemoglobin mass conc (Bld) 13.9 g/dL Normal 12.0-15.[address] [facility] Comment on above: Order Comment: No: D o not add to previous draw Performed By: #### 5 0608 ####[facility] [place] [address], [facility] MCH 31.1 pg Normal 24.0-32.[address] [facility] Comment on above: Order Comment: No: D o not add to previous draw Performed By: #### 5 0608 ####[facility] MCHC mass conc (RBC) 33.5 g/dL Normal 32.0-36.[address] [facility] Comment on above: Order Comment: No: D o not add to previous draw Performed By: #### 5 0608 ####[facility] MCV 92.8 fL Normal 80.0-100.[address] [facility] Comment on above: Order Comment: No: D o not add to previous draw Performed By: #### 5 0608 ####[place] [address] [facility] [place] [address], [facility] PLAT CNT 172 Thou/mm3 Normal 100-[address] [facility] Comment on above: Order Comment: No: D o not add to previous draw Performed By: #### 5 0608 ####[facility] [place] [address], [facility] WBC (Leukocytes) 6.7 Thou/mm3 Normal 4.0-10.[address] [facility] Comment on above: Order Comment: No: D o not add to previous draw Performed By: #### 5 0608 ####[facility] [place] [address], [place] History and Physicalon 06-05 History and Physical [id number] Admitted: 06/05/2017 Date of : 1960 Attending Physician: Wayne Donis MD Room #: [id number] Discharge Date: HISTORY AND PHYSICALCHIEF COMPLAINT: Chest pain.HISTORY OF PRESENT ILLNESS: The patient is a 56-year-old female withhistory of migraines, who was transferred from [facility] after shepresented there with chest discomfort and [...] chest. [facility] he did [facility], which showed some T waveinversions in the lateral leads, so [facility]. Her [facility] there was negative and EKG again asmentioned, was abnormal with T wave inversion in the lateral leads. [facility] and[facility]. When I [...] or drug use.FAMILY HISTORY: Father of an UT at age 79 and mother of UT whenshe was having an open heart surgery at age 57.REVIEW OF SYSTEMS: A 10-point review of systems was done, and pertinentpositives and negatives mentioned in the HPI.MEDICATIONS: The patient only takes Imitrex for migraines as needed.PHYSICAL EXAMINATION: VITAL SIGNS: Temperature 98, pulse 75, [id number], blood pressure 129/80, and saturating 100% on [...] 06/05/2017/03:33 A/Wayne Donis MDDate Trans: 06/05/2017 04:23 A/Kong_JN:[id number] Normal [facility] PROTHROMBIN TIMEon 7 INR Coag RelTime (PPP) 0.98 {INR} Normal 0.91-1.[address] [facility] Comment on above: Order Comment: No: [...] OF ACTION, CLINICALEFFECTIVENESS, AND OPTIMAL THERAPEUTIC RANGE. [id number]. Performed By: #### 5 6101, [id number] ####[facility] Prothrombin time (PT) Coag time (PPP) 13.0 s Normal 12.3-14.[address] [facility] Comment on above: Order Comment: No: D o not add to previous draw Result Comment: ALL RESULTS MUST BE INTERPRETED WITH RESPECT TO BLOOD DRAWING ARTIFACTOR DILUTION ERROR OF ANTICOAGULANT AT THE TIME OF SAMPLING. Performed By: #### 5 6101, [id number] ####[facility] [place] [address], [facility] TROPONIN-Ion 06-05-2017 Troponin I.cardiac mass conc 0.03 ng/mL Normal 0.00-0.04 [facility] Comment on above: Order Comment: No: D o not add to previous draw Result Comment: REFE RENCE RANGES: 0.00 - 0.04 ng/ml NORMAL 0.05 - 0.50 ng/ml INDETERMINATE > 0.50 ng/ml CONSISTENT WITH AN M.I. Performed By: #### 3 5200 ####[facility] [place] [address], [facility] Troponin I.cardiac mass conc 0.01 ng/mL Normal 0.00-0.04 [facility] Comment on above: Order Comment: No: D o not add to previous draw Result Comment: REFE RENCE RANGES: 0.00 - 0.04 ng/ml NORMAL 0.05 - 0.50 ng/ml INDETERMINATE > 0.50 ng/ml CONSISTENT WITH AN M.I. Performed By: #### 3 5200 ####[facility] [place] [address], [facility] Troponin I.cardiac mass conc 0.02 ng/mL Normal 0.00-0.[address] [facility] Comment on above: Order Comment: No: D o not add to previous draw Result Comment: REFE RENCE RANGES: 0.00 - 0.04 ng/ml NORMAL 0.05 - 0.50 ng/ml INDETERMINATE > 0.50 ng/ml CONSISTENT WITH AN M.I. Performed By: #### 3 5200 ####[facility] [place] [address], [facility] Vital Signs Date Time Vital Sign Value Performing Clinician Samir olivas 01-19-2023 11:15-0400 Diastolic blood pressure 92 mm[Hg] Elvira Scherer DO Work Phone: [facility] 01-19-2023 11:15-0400 Heart rate 75 /min Elvira Scherer DO Work Phone: [facility] [employer] 01-19-2023 11:15-0400 Respiratory rate 16 /min Elvira Scherer DO Work Phone: [facility] [employer] 01-19-2023 11:15-0400 SaO2% (BldA) [Mass fraction] 97 % Elvira Scherer DO Work Phone: [facility] [employer] 01-19-2023 11:15-0400 Systolic blood pressure 112 mm[Hg] Elvira Scherer DO Work Phone: [facility] [employer] 01-19-2023 10:48-0400 Body temperature 96.91 [degF] Elvira Scherer DO Work Phone: [facility] [employer] 01-19-2023 09:50-0400 Body height 154.9 cm Elvira Scherer DO Work Phone: [facility] [employer] 01-19-2023 09:50-0400 Body mass index (BMI) [Ratio] 19.84 kg/m2 Elvira Scherer DO Work Phone: [facility] [employer] 01-19-2023 09:50-0400 Body weight 47.63 kg Elvira Scherer DO Work Phone: [facility] [employer] 12-01-2022 10:15-0400 Diastolic blood pressure 67 mm[Hg] Elvira Scherer DO Work Phone: [facility] [employer] 12-01-2022 10:15-0400 Heart rate 66 /min Elvira Scherer DO Work Phone: [facility] [employer] 12-01-2022 10:15-0400 SaO2% (BldA) [Mass fraction] 97 % Elvira Scherer DO Work Phone: [facility] [employer] 12-01-2022 10:15-0400 Systolic blood pressure 112 mm[Hg] Elvira Scherer DO Work Phone: [facility] [employer] 12-01-2022 09:41-0400 Body temperature 97 [degF] Elvira Scherer DO Work Phone: [facility] 12-01-2022 09:41-0400 Respiratory rate 18 /min Elvirapietro Scherer Work Phone: [facility] 12-01-2022 08:20-0400 Body mass index (BMI) [Ratio] 20.18 kg/m2 Elvirapietro Scherer DO Work Phone: [facility] 12-01-2022 08:20-0400 Body weight 48.44 kg Elvirapietro Scherer DO Work Phone: [facility] 11-17-2022 11:32-0400 Body height 154.9 cm Elvira Paul Work Phone: [facility] Encounters Encounter Date Encounter Type Care Provider Facility Start: 01-19-2023 End: 01-19-2023 ambulatory RYAN [facility] Start: 01-19-2023 End: 01-19-2023 Subsequent hospital visit by physician Elvira Scherer DO Work Phone: [facility] Start: 12-01-2022 End: 12-01-2022 ambulatory RYAN [facility] Start: 12-01-2022 End: 12-01-2022 Subsequent hospital visit by physician Elvira Scherer DO Work Phone: [facility] Start: 09-09-2022 End: 09-10-[address] RYAN AREVALO . Facility:[facility] Start: 08-29-2022 Encounter for genera l adult medical examination without abnormal findings DR RYAN AREVALO . [facility] Start: 08-21-2022 End: 08-21-[address] RYAN AREVALO . Facility:[facility] Start: 08-21-2022 End: 08-21-2022 Encounter for general adult medical examination without abnormal findings DR RYAN AREVALO . Facility:[facility] Start: 08-15-2022 End: 08-16-[address] RYAN AREVALO . Facility:[facility] Start: 10-22-2018 End: 10-26-2018 Evaluation and management of inpatient MEERA ROJAS [facility] Start: 06-05-2017 End: 06-06-2017 Evaluation and management of inpatient KEL BUENO Facility:[facility] Procedures Date Procedure Procedure Detail Performing [...] SEIZURE PRECAUTIONS MERVIN ID BOB Start: 10-23-2018 YARD SPECIALIST EVAL AND TREAT RENNY D BOB Start: 10-23-2018 TOBACCO CESSATION EDUCATION MEERA ROJAS Start: 10-23-2018 VITAL SIGNS MEERA Ray Start: 10-23-2018 WOUND CARE MEEAR ELKIN Ray Start: 10-22-2018 TRANSFUSE PLATELETS MERVIN [...] cataract of right eye 01/19/2023 10:26 AM [facility] Start: 01-06-2023 Influenza vaccination [facility] Start: 12-01-2022 End: 12-01-2022 Xcapsl ctrc rmvl insj io lens prosth w/o ecp EYE CATARACT EMULSIFICATION IOL IMPLANT Age-related nuclear cataract of left eye 12/01/2022 9:07 AM [facility] Start: 10-26-2019 [facility]id [facility] Start: 08-29-2009 Screening for malign ant neoplasm of breast Breast cancer screen [facility] Start: 08-29-2009 Screening for malign ant neoplasm of lung Low dose CT lung screening &/or counseling [facility] Start: 08-29-2009 Shingles vaccine (1 of 2) Shingles vaccine (1 of 2) [facility] Start: 08-29-2004 Screening for malign ant neoplasm of colon [facility] Start: 08-29-1978 DTaP/Tdap/Td vaccine (1 - Tdap) DTaP/Tdap/Td vaccine (1 - Tdap) [facility] Start: 08-29-1977 Hepatitis C screening Hepatitis C sc reen [facility] Start: 08-29-1974 HIV screening HIV screen [facility] Start: 1971 Depression Screen Depression Screen [facility] Start: 08-29-1965 Pneumococcal 0-64 ye ars Vaccine (1 - PCV) Pneumococcal 0-64 years Vaccine (1 - PCV) [facility] Start: 03-01-1960 COVID-19 Vaccine (#1) COVID-19 Vacci ne (#1) [facility] Oxygen therapy [Mini mum Data Set] Initiate Oxygen Therapy Protocol Respiratory Care Routine Daily until discontinued starting 12/01/2022 [facility] Comment on above: Daily until disconti nued starting 12/01/2022 Oxygen therapy [Mini mum Data Set] Initiate Oxygen Therapy Protocol Respiratory Care Routine Daily until discontinued starting 12/01/2022 [facility] Comment on above: Daily until disconti nued starting 12/01/2022 Oxygen therapy [Mini mum Data Set] Initiate Oxygen Therapy Protocol Respiratory Care Routine Daily until discontinued starting 01/19/2023 [facility] [employer] Comment on above: Daily until disconti nued starting 01/19/2023 Oxygen therapy [[facility] Data Set] Initiate Oxygen Therapy Protocol Respiratory Care Routine Daily until discontinued starting 01/19/2023 [facility] [employer] Comment on above: Daily until disconti nued starting 01/19/2023 Payers Date Payer Category Payer Unknown [id number] [id number] [id number] 1960 Unknown [id number] 2.16.84 [id number] 1960 Unknown [id number] 2.16.84 [id number] 1960 Unknown [id number] 2.16.84 [id number] 1960 Unknown [id number] 2.16.8 [id number] 1960 Unknown [id number] 2.16.8 [id number] 1960 [facility] [id number] Social History Date Type Detail Facility Start: 12-01-2022 [facility] [employer] History of tobacco use Cigarette Smoker B ON [employer] Start: 12-01-2022 Cigarettes smoked current (pack per day) - Reported 1 [employer] Start: 12-01-2022 Tobacco use and exposure Smoke less tobacco non-user [facility] [employer] Start: 12-01-2022 End: 01-19-2023 Alcohol intake Lifetime non-drinker (finding) [employer] Start: 10-23-2018 History SDOH Alcohol Frequency 1 [facility] [employer] Start: 1960 Sex Assigned At Not on file B ON [employer] Medical Equipment Procedure Code Equipment Code Equipment Origin al Text Equipment Identifier Dates Lens Intraocular Bcnvx 22+ Diopt 6x12.5 Mm Acryl [employer] - [id number] Start: 12-01-2022 Lens Intraocular Bcnvx 22+ Diopt 6x12.5 Mm Acryl [employer] - [id number] Start: 01-19-2023 History of Present illness Narrative [...] phone call. documented in this encounter [facility] Discharge instructions 01-19-2023 Discharge Instructions Note [...] the healing period. The office number is [phone]. Take surgery bag and all eye drops to Dr. Scherer's office tomorrow at 9:50am. You may resume your normal diet. Start your eye drops tomorrow after your post-op appointment: Ofloxacin/Polytrim one drop to the operated eye 4 times daily Prednisolone one drop to the operated eye 4 times daily documented in this encounter [facility] History of Present illness Narrative 12-01-2022 Kadie [...] the end of procedure. EKG received from [facility], will have anesthesia review. Patient instructed on [...] EKG done. documented in this encounter [facility] Discharge instructions 12-01-2022 Discharge Instructions Note [...] the healing period. The office number is [phone]. Take surgery bag and all eye drops to Dr. Scherer's office tomorrow at 8:50am. You may resume your normal diet. 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 documented in this encounter [facility] Evaluation note Note Date & Type Note Facility Evaluation note Diagnosis Age-related nuclear cataract of right eye- Primary Senile nuclear sclerosis documented in this encounter [facility] Summary Purpose Family History No Family History [...] and content) DATE CREATED AUTHOR 11/30/2017 [facility] DATE CREATED AUTHOR AUTHOR'S ORGANIZ ATION 01/19/2019 [facility] DATE CREATED AUTHOR AUTHOR'S ORGANIZ ATION 04/13/2021 [facility] DATE CREATED AUTHOR AUTHOR'S ORGANIZ ATION 08/26/2021 [facility] DATE CREATED AUTHOR AUTHOR'S ORGANIZ ATION 09/14/2022 [facility] DATE CREATED AUTHOR AUTHOR'S ORGANIZ ATION 01/22/2023 [facility] DATE CREATED AUTHOR AUTHOR'S ORGANIZ ATION 06/04/2023 [facility] Reason for Visit (unrecogniz ed section and content) Specialty Diagnoses / Procedures Referred By Mo garza Referred To Contact Diagnoses Age-related nuclear cataract of left eye AGE-RELATED NUCLEAR CAT 3+ NS, 1+PSC Procedures WI XCAPSL CTRC RMVL INSJ IO LENS PROSTH W/O ECP EYE CATARACT EMULSIFICATION IOL IMPLANT Elvira Scherer, DO [address] [place] [address] [facility] [address] [place] [address] Referral ID Status Reason Start Date Expiration Date Visits Re quested Visits Authorized [id number] 1 1 Specialty Diagnoses / Procedures Referred By Mo garza Referred To Contact Diagnoses 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 [H25.811] Procedures WI XCAPSL CTRC RMVL INSJ IO LENS PROSTH W/O ECP EYE CATARACT EMULSIFICATION IOL IMPLANT Elvira Scherer, DO [address] [place] [address] [facility] [address] [place] [address] Referral ID Status Reason Start Date Expiration Date Visits Re quested Visits Authorized [id number] 1 1 Scheduled Active and Recently Administ [...] minutes, starting 30 minutes prior to surgery, [facility] - enter number of doses based on [...] Care Teams (unrecognized sec tion and content) 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 [employer] [facility]. provides no warranty or guarantee of the accuracy or completeness of information in this document.
== END 2024-03-22 07:42 | disposition home or self-care (01) ==
LOC: CT 07:41
PROVIDERS: PCP Family Medicine; Visit Provider Family Medicine
DX: R93.89 Abnormal findings on diagnostic imaging of other specified body structures (principal)
CPT/HCPCS: 71250

== ENCOUNTER 2024-03-26 07:46 | Outpatient (OUT) | payer BC, SELFPAY ==
--- OUTSIDE RECORDS SUMMARY | 2024-03-26 07:48 | XMS_ITS | CCD ---
Author Organization [facility] Care Team Providers Care Air Conditioning Unit Tester Name Role Phone KEL BUENO Unavailable Unavailable RYAN AREVALO Unavailable Unavailable ALENID, AURORA HUSSAM Unavailable Unavailabl e RACHELE POST Unavailable Unavailable [place] Unavailable Unavailable UNKNOWN, PROVIDER Unavailable Unavailable MEERA [...] Unavailable HOY ., DR DAVIS Consulting Unavailable [place], DR MEERA Maria Consulting Unavailable BILLY, DR CORINA Nichole Consulting Unavailable Ryan Arevalo MD Primary Care Provider [phone] RYAN AREVALO Primary Care Unavailable ELVIRA [...] (Original) docusate sodium 50 mg / sennosides, mcc 8.6 mg oral tablet (1 source) Start: [...] disease (1 source) 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 CNPNon 06-02-2023 CNPN Telephone (CARDMN) DACIA FINLEY ([id number]) 1960 F Date Time Provider Department 06/02/23 CELIA MATOS ([facility]) CARDMN During your visit today, we [...] CELIA LILLY on 06/02/[address] [facility] FREE T3on 09-09-2022 FREE T3 3.53 pg/mlL Normal 2.18-3.98 [facility] Comment on above: Performed By: #### T 4, FT3, TSH #### [facility] [address] [place] [address] Dr. Guevara Abraham T4on 09-09-2022 T4 [Mass/Vol] 10.20 ug/dL Normal 4.80-13.90 [facility] Comment on above: Performed By: #### T 4, FT3, TSH #### [facility] [address] [place] [address] Dr. Guevara Abraham TSHon 09-09-2022 TSH 7.509 uIU/mL Critically high 0.358-3.74 0 [facility] Comment on above: Performed By: #### T 4, FT3, TSH #### [facility] [address] [place] [address] Dr. Guevara Abraham OCC BLD IMMUNO SCREENon 08-06 OCCULT BLOOD Negative Normal NEGATIVE [facility] Comment on above: Performed By: #### A NAIFA #### [facility] [address] [place] [address] Dr. Guevara Abraham CODI by IFAon 08-19-2022 Antinuclear Antibodies, IFA Negative Normal [facility] Comment on above: Result Comment: Nega tive <1:80 Borderline 1:80 Positive >1:80 ICAP nomenclature: AC-0 For more information about Hep-2 cell patterns use ANApatterns.org, the official website for the International Consensus on Antinuclear Antibody (CODI) Patterns (ICAP). Performed By: #### A NAIFA #### [facility] [address] [place] [address] Dr. Guevara Abraham ANTISTREPTOLYSIN O AB (ASO)o n 08-16-2022 Antistreptolysin O Ab 248.1 IU/mL Critically high 0.0-200.0 [facility] Comment on above: Performed By: #### A SOAB #### [facility] [address] [place] [address] Dr. Guevara Abraham C-REACTIVE PROTEINS (HS)on 0 08-16-2022 C-Reactive Protein, Cardiac 0.32 mg/L Normal 0.00-3.00 [facility] Comment on above: Result Comment: Rela tive Risk for Future Cardiovascular Event Low <1.00 Average 1.00 - 3.00 High >3.00 Performed By: #### C RPHS #### [facility] [address] [place] [address] Dr. Guevara Abraham INSULINon 08-16-2022 Insulin 11.3 uIU/mL Normal 2.6-24.9 [facility] Comment on above: Performed By: #### I NSULIN ####[facility] [address] [place], [place] [address]DrCain Abraham RHEUMATOID FACTORon 08-17-19 23 RA Latex Turbid. <10.0 Normal <14.0 [facility] Comment on above: Performed By: #### R F #### [facility] [address] [place] [address] Dr. Guevara Abraham CBC AUTO DIFFon 08-15-2022 BASO # 0.1 103/ul Normal 0.0-0.1 [facility] Comment on above: Performed By: #### C BC ####[facility] [address] [place], [place] [address]Dr. Guevara Abraham Basophils/100 WBC (Bld) 0.6 % Normal 0.2-2.0 [facility] Comment on above: Performed By: #### C BC ####[facility] [address] [place], [place] [address]DrCain Abraham EO # 0.2 103/ul Normal 0.0-0.7 [facility] Comment on above: Performed By: #### C BC ####[facility] [address] [place], [place] [address]DrCain Abraham Eosinophils/100 WBC (Bld) 1.9 % Normal 0.9-7.0 [facility] Comment on above: Performed By: #### C BC ####[facility] [address] [place], [place] [address]DrCain Abraham Erythrocyte distribution width (RBC) [Ratio] 12.8 % Normal 11.0-15.0 [facility] Comment on above: Performed By: #### C BC ####[facility] [address] [place] [address]Dr. Zabrinameño Abraham Hematocrit (Bld) [Volume fraction] 43.1 % Normal 36.0-48.0 [facility] Comment on above: Performed By: #### C BC ####[facility] [address] [place] [address]Dr. Guevara Abraham Hemoglobin (Bld) [Mass/Vol] 14.5 g/dL Normal 12.0-16.0 [facility] Comment on above: Performed By: #### C BC ####[facility] [address] [place], [place] [address]Dr. Guevara Abraham IG # 0.03 10e3/ul Normal 0.00-0.03 [facility] Comment on above: Performed By: #### C BC ####[facility] Muk[address] [place], [place] [address]Dr. Guevara Abraham IG % 0.3 % Normal 0.0-0.5 [facility] Comment on above: Performed By: #### C BC ####[facility] [address] [place], [place] [address]Dr. Guevara Abraham LYMPH # 3.3 103/ul Normal 1.2-3.8 [facility] Comment on above: Performed By: #### C BC ####[facility] [address] [place], [place] [address]Dr. Guevara Abraham Lymphocytes/100 WBC (Bld) 34.2 % Normal 20.5-60.0 [facility] Comment on above: Performed By: #### C BC ####[facility] [address] [place] [address]Dr. Guevara Abraham MANUAL DIFF REQ NO Normal [facility] Comment on above: Performed By: #### C BC ####[facility] [address] [place], [place] [address]DrCain Abraham MCH (RBC) [Entitic mass] 31.4 pg Normal 26.7-34.0 [facility] Comment on above: Performed By: #### C BC ####[facility] [address] [place], [place] [address]Dr. Guevara Abraham MCHC (RBC) [Mass/Vol] 33.6 g/dL Normal 29.9-35.2 [facility] Comment on above: Performed By: #### C BC ####[facility] [address] [place] [id number]. Guevara Abraham MCV (RBC) [Entitic vol] 93.3 fL Normal 81.0-99.0 [facility] Comment on above: Performed By: #### C BC ####[facility] [address] [place], [place] [address]Dr. Guevara Abraham MONO # 0.7 103/ul Normal 0.3-0.8 [facility] Comment on above: Performed By: #### C BC ####[facility] O[address] [place], [place] [address]Dr. Guevara Abraham Monocytes/100 WBC (Bld) 7.3 % Normal 1.7-12.0 [facility] Comment on above: Performed By: #### C BC ####[facility] [address] [place], [place] [address]Dr. Guevara Abraham NEUT # 5.3 103/ul Normal 1.4-6.5 [facility] Comment on above: Performed By: #### C BC ####[facility] [address] [place], [place] [address]Dr. Guevara Abraham Neutrophils/100 WBC (Bld) 55.7 % Normal 43.0-75.0 [facility] Comment on above: Performed By: #### C BC ####[facility] Dr[address] [place], [place] [address]Dr. Guevara Abraham Platelet mean volume (Bld) [Entitic vol] 11.5 fL Normal 9.5-13.5 [facility] Comment on above: Performed By: #### C BC ####[facility] [address] [place], [place] [address]Dr. Guevara Abraham PLT 211 103/ul Normal 150-450 [facility] Comment on above: Performed By: #### C BC ####[facility] [address] [place], [place] [address]Dr. Guevara Abraham RBC 4.62 106/ul Normal 4.20-5.40 [facility] Comment on above: Performed By: #### C BC ####[facility] [address] [place], [place] [address]Nq. Guevara Abraham WBC 9.5 103/ul Normal 4.0-11.0 [facility] Comment on above: Performed By: #### C BC ####[facility] [address] [place] [id number]. Guevara Abraham CRPon 08-15-2022 CRP [Mass/Vol] mg/L Normal <=1.0 [facility] Comment on above: Performed By: #### C RP, T7, CMP, URIC, LIPID, TSH ####[facility] [address] [place], [place] [address]Su. Gue[address]a [address] CT LUNG CANCER SCREENINGon 0 [...] CORINA CERVANTES Date: 2022-08-15 09:25 Normal [facility] FREE THYROXINE INDEX T7on FTI 3.00 Normal 1.30-4.50 [facility] Comment on above: Performed By: #### C RP, T7, CMP, URIC, LIPID, TSH ####[facility] [address] [place] [id number]. Guevara Abraham T3U 33.0 % Normal 30.0-39.0 [facility] Comment on above: Performed By: #### C RP, T7, CMP, URIC, LIPID, TSH ####[facility] [address] [place] [id number]. Guevara Abraham T4 [Mass/Vol] 9.10 ug/dL Normal 4.80-13.90 [facility] Comment on above: Performed By: #### C RP, T7, CMP, URIC, LIPID, TSH ####[facility] [address] [place] [address]DrCain Abraham GLYCOHEMOGLOBIN A1Con 2022 ADA RECOMMENDATION SEE BELOW Normal [facility] Comment on above: Result Comment: ADA RECOMMENDED LIMIT 4.0 - 6.0 ADA THERAPEUTIC TARGET < 7.0 ACTION SUGGESTED > 7.0 Performed By: #### A 1C ####[facility] [address] [place] [address]Dr. Guevara Abraham Glucose [Mass/Vol] 120 mg/dL Normal [facility] Comment on above: Performed By: #### A 1C ####[facility] [address] [place] [address]Dr. Guevara Abraham HbA1c (Bld) [Mass fraction] 5.8 % Normal 4.5-6.2 [facility] Comment on above: Performed By: #### A 1C ####[facility] [address] [place] [address]DrCain Abraham IRONon 08-15-2022 Iron [Mass/Vol] 124.0 ug/dL Normal 50.0-170.0 [facility] Comment on above: Performed By: #### I MIAH #### [facility] [address] [place] [address] [address] Guevara Abraham LIPID PROFILEon 08-15-2022 CHOL-HDL RATIO NORM SEE BELOW Normal [facility] Comment on above: Result Comment: 3.3 - 4.4 LOW RISK 4.4 - 7.1 AVERAGE RISK 7.1 - 11.0 MODERATE RISK >11.0 HIGH RISK Performed By: #### C RP, T7, CMP, URIC, LIPID, TSH ####[facility] [address] [place] [address]Dr. Guevara Abraham Cholesterol [Mass/Vol] 132 mg/dL Normal <=200 [facility] Comment on above: Performed By: #### C RP, T7, CMP, URIC, LIPID, TSH ####[facility] [address] [place] [address]Dr. Guevara Abraham Cholesterol in HDL [Mass/Vol] 44 mg/dL Normal 40-60 [facility] Comment on above: Performed By: #### C RP, T7, CMP, URIC, LIPID, TSH ####[facility] [address] [place] [address]Dr. Guevara Abraham Cholesterol in LDL [Mass/Vol] 70.8 mg/dL Normal [facility] Comment on above: Performed By: #### C RP, T7, CMP, URIC, LIPID, TSH ####[facility] [address] [place] [address]Dr. Guevara Abraham Cholesterol.total /Cholesterol in HDL [Mass ratio] 3.0 {ratio} Normal [facility] Comment on above: Performed By: #### C RP, T7, CMP, URIC, LIPID, TSH ####[facility] [address] [place] [address]Dr. Guevara Abraham HDL NORMAL > or = 60 mg/dl - LO W CARDIOVASCULAR RISK <40 mg/dl - HIGH CARDIOVASCULAR RISK Normal [facility] Comment on above: Performed By: #### C RP, T7, CMP, URIC, LIPID, TSH ####[facility] [address] [place] [address]Dr. Guevara Abraham LDL CALC NORMAL SEE BELOW Normal [facility] Comment on above: Result Comment: <100 mg/dl OPTIMAL 100 - 129 mg/dl NEAR OR ABOVE OPTIMAL 130 - 159 mg/dl BORDERLINE HIGH 160 - 189 mg/dl HIGH >190 mg/dl VERY HIGH Performed By: #### C RP, T7, CMP, URIC, LIPID, TSH ####[facility] [address] [place], [place] [address]Yo. Guevara Abraham Triglyceride [Mass/Vol] 86 mg/dL Normal <=150 [facility] Comment on above: Performed By: #### C RP, T7, CMP, URIC, LIPID, TSH ####[facility] [address] [place], [place] [address]Td. Guevara Abraham VLDL CALC 17.2 mg/dL Normal [facility] Comment on above: Performed By: #### C RP, T7, CMP, URIC, LIPID, TSH ####[facility] [address] [place], [place] [address]Fi. Guevara Abraham MG MAMM SCREEN 3D GRICEL CADon 08-15-2022 MG MAMM SCREEN 3D GRICEL CAD Patient: DACIA FINLEY Exam Date: 08/15/2022 : 1960 Gender:F Ordering : DR RYAN AREVALO . Admission #: [id number] Family : Order #: [id number] CLICK HERE TO VIEW EXAM RADIOLOGY REPORT PROCEDURE: MAMMOGRAM SCREENING 3D BILATERAL CAD COMPARISON: MG MAMM GRICEL SCRN W CAD DIG, 07/04/2015. INDICATIONS: Screening mammography Calculator Name NCI Breast Cancer Risk Assessment Tool 5 Year Breast Cancer Risk Not Reported. Lifetime Breast Cancer Risk Not Reported. Personal Breast Cancer No Personal Ovarian Cancer No Treatments None Family Cancers None LOCATION: [facility] BREAST COMPOSITION: Extremely dense, which lowers [...] MD on 08/15/2022 at 09:49 Normal [facility] PROF 14(COMP METB)on 023 Albumin [Mass/Vol] 3.9 g/dL Normal 3.4-5.0 [facility] Comment on above: Performed By: #### C RP, T7, CMP, URIC, LIPID, TSH ####[facility] [address] [place] [address]Dr. Guevara Abraham Albumin/Globulin [Mass ratio] 1.2 {ratio} Normal [facility] Comment on above: Performed By: #### C RP, T7, CMP, URIC, LIPID, TSH ####[facility] [address] [place] [address]Dr. Guevara Abraham ALP [Catalytic activity/Vol] 66 U/L Normal 46-116 [facility] Comment on above: Performed By: #### C RP, T7, CMP, URIC, LIPID, TSH ####[facility] [address] [place] [address]Dr. Guevara Abraham ALT [Catalytic activity/Vol] 22 U/L Normal 14-59 [facility] Comment on above: Performed By: #### C RP, T7, CMP, URIC, LIPID, TSH ####[facility] [address] [place] [address]Dr. Guevara Abraham Anion gap [Moles/Vol] 12.9 mmol/L Normal [facility] Comment on above: Performed By: #### C RP, T7, CMP, URIC, LIPID, TSH ####[facility] [address] [place] [address]Dr. Guevara Abraham AST [Catalytic activity/Vol] 14 U/L Critically low 15-37 [facility] Comment on above: Performed By: #### C RP, T7, CMP, URIC, LIPID, TSH ####[facility] [address] [place] [address]Dr. Guevara Abraham Bilirubin [Mass/Vol] 0.4 mg/dL Normal 0.2-1.0 [facility] Comment on above: Performed By: #### C RP, T7, CMP, URIC, LIPID, TSH ####[facility] [address] [place] [address]Dr. Guevara Abraham Calcium [Mass/Vol] 8.8 mg/dL Normal 8.5-10.1 [facility] Comment on above: Performed By: #### C RP, T7, CMP, URIC, LIPID, TSH ####[facility] [address] [place] [address]Dr. Guevara Abraham Chloride [Moles/Vol] 107 mmol/L Normal 98-107 [facility] Comment on above: Performed By: #### C RP, T7, CMP, URIC, LIPID, TSH ####[facility] [address] [place] [address]Dr. Guevara Abraham CO2 [Moles/Vol] 26.8 mmol/L Normal 21.0-32.0 [facility] Comment on above: Performed By: #### C RP, T7, CMP, URIC, LIPID, TSH ####[facility] [address] [place] [address]Dr. Guevara Abraham Creatinine [Mass/Vol] 0.85 mg/dL Normal 0.55-1.02 [facility] Comment on above: Performed By: #### C RP, T7, CMP, URIC, LIPID, TSH ####[facility] [address] [place] [address]Dr. Guevara Abraham EGFR-AF SINGAPOREAN >60 Normal >=60 [facility] Comment on above: Performed By: #### C RP, T7, CMP, URIC, LIPID, TSH ####[facility] [address] [place] [address]Dr. Guevara Abraham EGFR-NON AF SINGAPOREAN >60 Normal >=60 [facility] Comment on above: Performed By: #### C RP, T7, CMP, URIC, LIPID, TSH ####[facility] [address] [place] [address]Dr. Guevara Abraham Globulin (S) [Mass/Vol] 3.2 g/dL Normal [facility] Comment on above: Performed By: #### C RP, T7, CMP, URIC, LIPID, TSH ####[facility] [address] [place] [address]Dr. Guevara Abraham Glucose [Mass/Vol] 96 mg/dL Normal 74-106 [facility] Comment on above: Performed By: #### C RP, T7, CMP, URIC, LIPID, TSH ####[facility] [address] [place] [address]Dr. Guevara Abraham Potassium [Moles/Vol] 3.7 mmol/L Normal 3.5-5.1 [facility] Comment on above: Performed By: #### C RP, T7, CMP, URIC, LIPID, TSH ####[facility] [address] [place] [address]Dr. Guevara Abraham Protein [Mass/Vol] 7.1 g/dL Normal 6.4-8.2 [facility] Comment on above: Performed By: #### C RP, T7, CMP, URIC, LIPID, TSH ####[facility] [address] [place] [address]Dr. Guevara Abraham Sodium [Moles/Vol] 143 mmol/L Normal 136-145 [facility] Comment on above: Performed By: #### C RP, T7, CMP, URIC, LIPID, TSH ####[facility] [address] [place] [address]Dr. Guevara Abraham Urea nitrogen [Mass/Vol] 13.0 mg/dL Normal 7.0-18.0 [facility] Comment on above: Performed By: #### C RP, T7, CMP, URIC, LIPID, TSH ####[facility] [address] [place] [address]Dr. Guevara Abraham Urea nitrogen/Creatini ne [Mass ratio] 15.3 mg/mg Normal [facility] Comment on above: Performed By: #### C RP, T7, CMP, URIC, LIPID, TSH ####[facility] [address] [place] [address]Dr. Guevara Abraham TSHon 08-15-2022 TSH 5.411 uIU/mL Critically high 0.358-3.74 0 [facility] Comment on above: Performed By: #### C RP, T7, CMP, URIC, LIPID, TSH ####[facility] [address] [place] [address]Dr. Guevara bAraham URIC ACID SERUMon 08-15-2022 Urate [Mass/Vol] 3.1 mg/dL Normal 2.6-6.0 [facility] Comment on above: Performed By: #### C RP, T7, CMP, URIC, LIPID, TSH ####[facility] [address] [place], [place] [address]BcCain Abraham XR DEXA BONE DENSITYon 08-15 XR [...] MEERA HODGE Date: 2022-08-15 09:00 Normal [facility] XR LSPINE MIN 4 VIEWSon 08-06 [...] CORINA CERVANTES Date: 2022-08-15 09:04 Normal [facility] MR head/brain wo conon 07-19 MR head/brain wo con [facility] [place] [address] MRI Report Signed Patient: Dacia Finley MR#: [id number] : 1960 Acct:[id number] Age/Sex: 60 / F ADM Date: 07/19/21 Loc: [facility] Room: Type: [facility] Attending Dr: Himanshu Acosta DO Ordering Provider: [...] Jack Giles M.D.07/19/2021 1:11 PM Dictation Location: [place] [address] Transcribed By: [facility] 07/19/21 1311 Dictated By: Jack Giles II, MD 07/19/21 1302 Signed By: 07/19/21 1311 Normal [facility] Physician Referralon 021 Physician Referral [id number] Normal [facility] Basic Metabolic Profon 10-26 (cont.) Normal [facility] Comment on above: Result Comment: Aver age GFR for 50-59 years old: 93 mL/min/1.73sq m Chronic Kidney Disease: <60 mL/min/1.73sq m Kidney failure: <15 mL/min/1.73sq m eGFR calculated using average adult body mass. Additional eGFR calculator available at: http://www.OpenROV.[employer]/multiple_crcl_2012.htm Performed By: #### C DP, BMP, CRP, PRCAL #### [facility] [address] [place] [address] [employer] Machine: Sabas Lamb MD Anion gap [Moles/Vol] 9 mmol/L Normal 9-17 [facility] Comment on above: Performed By: #### C DP, BMP, CRP, PRCAL #### [facility] [email or web address] [address] [place] [address] [employer] Co[employer] Machine: Sabas Lamb MD Calcium [Mass/Vol] 8.3 mg/dL Low 8.6-10.4 [facility] Comment on above: Performed By: #### C DP, BMP, CRP, PRCAL #### [facility] [address] [place] [address] [employer] Machine: Sabas Lamb MD Chloride [Moles/Vol] 100 mmol/L Normal 98-107 [facility] Comment on above: Performed By: #### C DP, BMP, CRP, PRCAL #### [facility] [address] [place] [address] [employer] Machine: Sabas Lamb MD CO2 [Moles/Vol] 26 mmol/L Normal 20-31 [facility] Comment on above: Performed By: #### C DP, BMP, CRP, PRCAL #### [employer] [address] [place] [address] [employer] Machine: Sabas Lamb MD Creatinine [Mass/Vol] 0.26 mg/dL Low 0.50-0.90 [facility] Comment on above: Performed By: #### C DP, BMP, CRP, PRCAL #### [address] [address] [employer]: Sabas Lamb MD GFR, Amer >60 Normal >60 [facility] Comment on above: Performed By: #### C DP, BMP, CRP, PRCAL #### [facility] [email or web address] [address] [place] [address] [employer] Machine: Sabas Lamb MD GFR,non Amer >60 Normal >60 [facility] Comment on above: Performed By: #### C DP, BMP, CRP, PRCAL #### [facility] [email or web address] [address] [place] [address] [employer] Machine: Sabas Lamb MD Glucose [Mass/Vol] 112 mg/dL High 70-99 [facility] Comment on above: Performed By: #### C DP, BMP, CRP, PRCAL #### [address] [address] [employer] Machine: Sabas Lamb MD Potassium [Moles/Vol] 3.1 mmol/L Low 3.7-5.3 [facility] Comment on above: Performed By: #### C DP, BMP, CRP, PRCAL #### [facility] [email or web address] [address] [place] [address] [employer]: Sabas Lamb MD Sodium [Moles/Vol] 135 mmol/L Normal 135-144 [facility] Comment on above: Performed By: #### C DP, BMP, CRP, PRCAL #### [facility] [email or web address] [address] [place] [address] [employer]: Sabas Lamb MD Urea nitrogen [Mass/Vol] 6 mg/dL Normal 6-20 [facility] Comment on above: Performed By: #### C DP, BMP, CRP, PRCAL #### [facility] [email or web address] [address] [place] [address] [employer]: Sabas Lamb MD BUN/CRE Ratio NOT REPORTED Normal 9-20 [facility] Comment on above: Performed By: #### C DP, BMP, CRP, PRCAL #### [address] [address] [employer]: Sabas Lamb MD Staging: NOT REPORTED Normal [facility] Comment on above: Performed By: #### C DP, BMP, CRP, PRCAL #### [place] [address] [employer]: Sabas Lamb MD CBC with Diffon 10-26-2018 Abs. Basophil <0.03 Normal 0.00-0.20 [facility] Comment on above: Performed By: #### C DP, BMP, CRP, PRCAL #### [place] [address] [employer]: Sabas Lamb MD Abs.Imm.Granulocy te 0.03 k/uL Normal 0.00-0.30 [facility] Comment on above: Performed By: #### C DP, BMP, CRP, PRCAL #### [place] [address] [employer]: Sabas Lamb MD Abs.Neutrophil (Seg) 7.04 k/uL Normal 1.50-8.10 [facility] Comment on above: Performed By: #### C DP, BMP, CRP, PRCAL #### [place] [address] [employer]: Sabas Lamb MD Basophils/100 WBC (Bld) 0 % Normal 0-2 [facility] Comment on above: Performed By: #### C DP, BMP, CRP, PRCAL #### [address] [address] [employer]: Sabas Lamb MD Eosinophils (Bld) [#/Vol] 0.08 10*3/uL Normal 0.00-0.44 [facility] Comment on above: Performed By: #### C DP, BMP, CRP, PRCAL #### [address] [address] [employer]: Sabas Lamb MD Eosinophils/100 WBC (Bld) 1 % Normal 1-4 [facility] Comment on above: Performed By: #### C DP, BMP, CRP, PRCAL #### [place] [address] [employer]: Sabas Lamb MD Erythrocyte distribution width (RBC) [Ratio] 12.0 % Normal 11.8-14.4 [facility] Comment on above: Performed By: #### C DP, BMP, CRP, PRCAL #### [place] [address] [employer]: Sabas Lamb MD Hematocrit (Bld) [Volume fraction] 32.3 % Low 36.3-47.1 [facility] Comment on above: Performed By: #### C DP, BMP, CRP, PRCAL #### [place] [address] [employer]: Sabas Lamb MD Hemoglobin (Bld) [Mass/Vol] 10.5 g/dL Low 11.9-15.1 [facility] Comment on above: Performed By: #### C DP, BMP, CRP, PRCAL #### [facility] [email or web address] [address] [place] [address] [employer]: Sabas Lamb MD Immature granulocytes (Bld) [#/Vol] 0 % Normal 0 [facility] Comment on above: Performed By: #### C DP, BMP, CRP, PRCAL #### [facility] [email or web address] [address] [place] [address] [employer]: Sabas Lamb MD Lymphocytes (Bld) [#/Vol] 1.45 10*3/uL Normal 1.10-3.70 [facility] Comment on above: Performed By: #### C DP, BMP, CRP, PRCAL #### [address] [address] [employer]: Sabas Lamb MD Lymphocytes/100 WBC (Bld) 16 % Low 24-43 [facility] Comment on above: Performed By: #### C DP, BMP, CRP, PRCAL #### [place] [address] [employer]: Sabas Lamb MD MCH (RBC) [Entitic mass] 31.3 pg Normal 25.2-33.5 [facility] Comment on above: Performed By: #### C DP, BMP, CRP, PRCAL #### [place] [address] [employer]: Sabas Lamb MD MCHC (RBC) [Mass/Vol] 32.5 g/dL Normal 28.4-34.8 [facility] Comment on above: Performed By: #### C DP, BMP, CRP, PRCAL #### [address] [address] [employer]: Sabas Lamb MD MCV (RBC) [Entitic vol] 96.1 fL Normal 82.6-102.9 [facility] Comment on above: Performed By: #### C DP, BMP, CRP, PRCAL #### [place] [address] [employer]: Sabas Lamb MD Monocytes (Bld) [#/Vol] 0.54 10*3/uL Normal 0.10-1.20 [facility] Comment on above: Performed By: #### C DP, BMP, CRP, PRCAL #### [address] [address] [employer]: Sabas Lamb MD Monocytes/100 WBC (Bld) 6 % Normal 3-12 [facility] Comment on above: Performed By: #### C DP, BMP, CRP, PRCAL #### [address] [address] [employer]: Sabas Lamb MD Neutrophil (Seg) 77 % High 36-65 [facility] Comment on above: Performed By: #### C DP, BMP, CRP, PRCAL #### [address] [address] [employer]: Sabas Lamb MD NRBC Automated 0.0 per 100 WBC Normal 0.0 [facility] Comment on above: Performed By: #### C DP, BMP, CRP, PRCAL #### [address] [address] [employer]: Sabas Lamb MD Platelet mean volume (Bld) [Entitic vol] 11.7 fL Normal 8.1-13.5 [facility] Comment on above: Performed By: #### C DP, BMP, CRP, PRCAL #### [address] [address] [employer]: Sabas Lamb MD Platelets (Bld) [#/Vol] 261 10*3/uL Normal 138-453 [facility] Comment on above: Performed By: #### C DP, BMP, CRP, PRCAL #### [address] [address] [employer]: Sabas Lamb MD RBC (Bld) [#/Vol] 3.36 10*6/uL Low 3.95-5.11 [facility] Comment on above: Performed By: #### C DP, BMP, CRP, PRCAL #### [address] [address] [employer]: Sabas Lamb MD WBC (Bld) [#/Vol] 9.2 10*3/uL Normal 3.5-11.3 [facility] Comment on above: Performed By: #### C DP, BMP, CRP, PRCAL #### [address] [address] [employer]: Sabas Lamb MD Auto Diff Performed NOT REPORTED Normal [facility] Comment on above: Performed By: #### C DP, BMP, CRP, PRCAL #### [address] [address] [employer]: Sabas Lamb MD Platelets (Bld) [#/Vol] NOT REPORTED Normal [facility] Comment on above: Performed By: #### C DP, BMP, CRP, PRCAL #### [address] [address] [employer]: Sabas Lamb MD RBC morphology finding Nom (Bld) NOT REPORTED Normal [facility] Comment on above: Performed By: #### C DP, BMP, CRP, PRCAL #### [address] [address] [employer]: Sabas Lamb MD WBC Morphology NOT REPORTED Normal [facility] Comment on above: Performed By: #### C DP, BMP, CRP, PRCAL #### [address] [address] [employer]: Sabas Lamb MD Basic Metabolic Profon 10-25 (cont.) Normal [facility] Comment on above: Result Comment: Aver age GFR for 50-59 years old: 93 mL/min/1.73sq m Chronic Kidney Disease: <60 mL/min/1.73sq m Kidney failure: <15 mL/min/1.73sq m eGFR calculated using average adult body mass. Additional eGFR calculator available at: http://www.[employer]/multiple_crcl_2011.htm Performed By: #### C DP, BMP, CRP, PRCAL #### [facility] [email or web address] [address] [place] [address] [employer]: Sabas Lamb MD Anion gap [Moles/Vol] 9 mmol/L Normal 9-17 [facility] Comment on above: Performed By: #### C DP, BMP, CRP, PRCAL #### [address] [address] [employer]: Sabas Lamb MD Calcium [Mass/Vol] 8.5 mg/dL Low 8.6-10.4 [facility] Comment on above: Performed By: #### C DP, BMP, CRP, PRCAL #### [address] [address] [employer]: Sabas Lamb MD Chloride [Moles/Vol] 100 mmol/L Normal 98-107 [facility] Comment on above: Performed By: #### C DP, BMP, CRP, PRCAL #### [facility] [email or web address] [address] [place] [address] [employer]: Sabas Lamb MD CO2 [Moles/Vol] 28 mmol/L Normal 20-31 [facility] Comment on above: Performed By: #### C DP, BMP, CRP, PRCAL #### [facility] [email or web address] [address] [place] [address] [employer]: Sabas Lamb MD Creatinine [Mass/Vol] 0.31 mg/dL Low 0.50-0.90 [facility] Comment on above: Performed By: #### C DP, BMP, CRP, PRCAL #### [facility] [email or web address] [address] [place] [address] [employer]: Sabas Lamb MD GFR, Amer >60 Normal >60 [facility] Comment on above: Performed By: #### C DP, BMP, CRP, PRCAL #### [facility] [email or web address] [address] [place] [address] [employer]: Sabas Lamb MD GFR,non Amer >60 Normal >60 [facility] Comment on above: Performed By: #### C DP, BMP, CRP, PRCAL #### [address] [address] [employer]: Sabas Lamb MD Glucose [Mass/Vol] 111 mg/dL High 70-99 [facility] Comment on above: Performed By: #### C DP, BMP, CRP, PRCAL #### [address] [address] [employer]: Sabas Lamb MD Potassium [Moles/Vol] 3.4 mmol/L Low 3.7-5.3 [facility] Comment on above: Performed By: #### C DP, BMP, CRP, PRCAL #### [address] [address] [employer]: Sabas Lamb MD Sodium [Moles/Vol] 137 mmol/L Normal 135-144 [facility] Comment on above: Performed By: #### C DP, BMP, CRP, PRCAL #### [facility] [email or web address] [address] [place] [address] [employer]: Sabas Lamb MD Urea nitrogen [Mass/Vol] 9 mg/dL Normal 6-20 [facility] Comment on above: Performed By: #### C DP, BMP, CRP, PRCAL #### [facility] [email or web address] [address] [place] [address] [employer]: Sabas Lamb MD BUN/CRE Ratio NOT REPORTED Normal -20 [facility] Comment on above: Performed By: #### C DP, BMP, CRP, PRCAL #### [facility] [email or web address] [address] [place] [address] [employer]: Sabas Lamb MD Staging: NOT REPORTED Normal [facility] Comment on above: Performed By: #### C DP, BMP, CRP, PRCAL #### [place] [address] [employer]: Sabas Lamb MD CBC with Diffon 10-25-2018 Abs. Basophil 0.03 k/uL Normal 0.00-0.20 [facility] Comment on above: Performed By: #### C DP, BMP, CRP, PRCAL #### [place] [address] [employer]: Sabas Lamb MD Abs.Imm.Granulocy te 0.05 k/uL Normal 0.00-0.30 [facility] Comment on above: Performed By: #### C DP, BMP, CRP, PRCAL #### [place] [address] [employer]: Sabas Lamb MD Abs.Neutrophil (Seg) 10.20 k/uL High 1.50-8.10 [facility] Comment on above: Performed By: #### C DP, BMP, CRP, PRCAL #### [place] [address] [employer]: Sabas Lamb MD Basophils/100 WBC (Bld) 0 % Normal 0-2 [facility] Comment on above: Performed By: #### C DP, BMP, CRP, PRCAL #### [place] [address] [employer]: Sabas Lamb MD Eosinophils (Bld) [#/Vol] 0.04 10*3/uL Normal 0.00-0.44 [facility] Comment on above: Performed By: #### C DP, BMP, CRP, PRCAL #### [place] [address] [employer]: Sabas Lamb MD Eosinophils/100 WBC (Bld) 0 % Low 1-4 [facility] Comment on above: Performed By: #### C DP, BMP, CRP, PRCAL #### [address] [address] [employer]: Sabas Lamb MD Erythrocyte distribution width (RBC) [Ratio] 11.9 % Normal 11.8-14.4 [facility] Comment on above: Performed By: #### C DP, BMP, CRP, PRCAL #### [place] [address] [employer]: Sabas Lamb MD Hematocrit (Bld) [Volume fraction] 31.5 % Low 36.3-47.1 [facility] Comment on above: Performed By: #### C DP, BMP, CRP, PRCAL #### [place] [address] [employer]: Sabas Lamb MD Hemoglobin (Bld) [Mass/Vol] 10.4 g/dL Low 11.9-15.1 [facility] Comment on above: Performed By: #### C DP, BMP, CRP, PRCAL #### [address] [address] [employer]: Sabas Lamb MD Immature granulocytes (Bld) [#/Vol] 0 % Normal 0 [facility] Comment on above: Performed By: #### C DP, BMP, CRP, PRCAL #### [address] [address] [employer]: Sabas Lamb MD Lymphocytes (Bld) [#/Vol] 0.96 10*3/uL Low 1.10-3.70 [facility] Comment on above: Performed By: #### C DP, BMP, CRP, PRCAL #### [address] [address] [employer]: Sabas Lamb MD Lymphocytes/100 WBC (Bld) 8 % Low 24-43 [facility] Comment on above: Performed By: #### C DP, BMP, CRP, PRCAL #### [address] [address] [employer]: Sabas Lamb MD MCH (RBC) [Entitic mass] 31.9 pg Normal 25.2-33.5 [facility] Comment on above: Performed By: #### C DP, BMP, CRP, PRCAL #### [address] [address] [employer]: Sabas Lamb MD MCHC (RBC) [Mass/Vol] 33.0 g/dL Normal 28.4-34.8 [facility] Comment on above: Performed By: #### C DP, BMP, CRP, PRCAL #### [address] [address] [employer]: Sabas Lamb MD MCV (RBC) [Entitic vol] 96.6 fL Normal 82.6-102.9 [facility] Comment on above: Performed By: #### C DP, BMP, CRP, PRCAL #### [address] [address] [employer]: Sabas Lamb MD Monocytes (Bld) [#/Vol] 0.75 10*3/uL Normal 0.10-1.20 [facility] Comment on above: Performed By: #### C DP, BMP, CRP, PRCAL #### [address] [address] [employer]: Sabas Lamb MD Monocytes/100 WBC (Bld) 6 % Normal 3-12 [facility] Comment on above: Performed By: #### C DP, BMP, CRP, PRCAL #### [address] [address] [employer]: Sabas Lamb MD Neutrophil (Seg) 86 % High 36-65 [facility] Comment on above: Performed By: #### C DP, BMP, CRP, PRCAL #### [address] [address] [employer]: Sabas Lamb MD NRBC Automated 0.0 per 100 WBC Normal 0.0 [facility] Comment on above: Performed By: #### C DP, BMP, CRP, PRCAL #### [address] [address] [employer]: Sabas Lamb MD Platelet mean volume (Bld) [Entitic vol] 11.4 fL Normal 8.1-13.5 [facility] Comment on above: Performed By: #### C DP, BMP, CRP, PRCAL #### [address] [address] [employer]: Sabas Lamb MD Platelets (Bld) [#/Vol] 238 10*3/uL Normal 138-453 [facility] Comment on above: Performed By: #### C DP, BMP, CRP, PRCAL #### [address] [address] [employer]: Sabas Lamb MD RBC (Bld) [#/Vol] 3.26 10*6/uL Low 3.95-5.11 [facility] Comment on above: Performed By: #### C DP, BMP, CRP, PRCAL #### [address] [address] [employer]: Sabas Lamb MD WBC (Bld) [#/Vol] 12.0 10*3/uL High 3.5-11.3 [facility] Comment on above: Performed By: #### C DP, BMP, CRP, PRCAL #### [address] [address] [employer]: Sabas Labm MD Auto Diff Performed NOT REPORTED Normal [facility] Comment on above: Performed By: #### C DP, BMP, CRP, PRCAL #### [facility] [email or web address] [address] [place] [address] [employer]: Sabas Lamb MD Platelets (Bld) [#/Vol] NOT REPORTED Normal [facility] Comment on above: Performed By: #### C DP, BMP, CRP, PRCAL #### [facility] [email or web address] [address] [place] [address] [employer]: Sabas Lamb MD RBC morphology finding Nom (Bld) NOT REPORTED Normal [facility] Comment on above: Performed By: #### C DP, BMP, CRP, PRCAL #### [facility] [email or web address] [address] [place] [address] [employer]: Sabas Lamb MD WBC Morphology NOT REPORTED Normal [facility] Comment on above: Performed By: #### C DP, BMP, CRP, PRCAL #### [facility] [email or web address] [address] [place] [address] [employer]: Sabas Lamb MD Lipid Profileon 10-25-2018 Cholesterol [Mass/Vol] 114 mg/dL Normal <200 [facility] Comment on above: Result Comment: Cholesterol Guidelines: <200 Desirable 200-240 Borderline >240 Undesirable Performed By: #### C DP, BMP, CRP, PRCAL #### [address] [address] [employer]: Sabas Lamb MD Cholesterol in HDL [Mass/Vol] 37 mg/dL Low >40 [facility] Comment on above: Result Comment: HDL Guidelines: <40 Undesirable 40-59 Borderline >59 Desirable Performed By: #### C DP, BMP, CRP, PRCAL #### [address] [address] [employer]: Sabas Lamb MD Cholesterol in LDL [Mass/Vol] 63 mg/dL Normal 0-130 [facility] Comment on above: Result Comment: LDL Guidelines: <100 Desirable 100-129 Near to/above Desirable 130-159 Borderline >159 Undesirable Direct (measured) LDL and calculated LDL are not interchangeable tests. Performed By: #### C DP, BMP, CRP, PRCAL #### [facility] [address] [place] [address] [employer]: Sabas Lamb MD Cholesterol.total /Cholesterol in HDL [Mass ratio] 3.1 {ratio} Normal <5 [facility] Comment on above: Performed By: #### C DP, BMP, CRP, PRCAL #### [facility] [email or web address] [address] [place] [address] [employer]: Sabas Lamb MD Triglyceride [Mass/Vol] 71 mg/dL Normal <150 [facility] Comment on above: Result Comment: Triglyceride Guidelines: <150 Desirable 150-199 Borderline 200-499 High >499 Very high Based on AHA Guidelines for fasting triglyceride, March 2012. Performed By: #### C DP, BMP, CRP, PRCAL #### [facility] [email or web address] [address] [place] [address] [employer]: Sabas Lamb MD Cholesterol in VLDL [Mass/Vol] NOT REPORTED Normal 1-30 [facility] Comment on above: Performed By: #### C DP, BMP, CRP, PRCAL #### [facility] [email or web address] [address] [place] [address] [employer]: Sabas Lamb MD Specimen Rejectionon 019 ----- NOT REPORTED Normal [facility] Comment on above: Performed By: #### C DP, BMP, CRP, PRCAL #### [facility] [email or web address] [address] [place] [address] [employer]: Sabas Lamb MD Reason for rejection Unable to perform testing: Specimen mislabeled. Normal [facility] Comment on above: Performed By: #### C DP, BMP, CRP, PRCAL #### [address] [address] [employer]: Sabas Lamb MD Source of sample .BLOOD Normal [facility] Comment on above: Performed By: #### C DP, BMP, CRP, PRCAL #### [address] [address] [employer]: Sabas Lamb MD Test ordered BMP CDP Normal [facility] Comment on above: Performed By: #### C DP, BMP, CRP, PRCAL #### [address] [address] [employer]: Sabas Lamb MD APTTon 10-24-2018 aPTT Coag (Bld) [Time] 26.3 s Normal 20.5-30.5 [facility] Comment on above: Performed By: #### C DP, BMP, CRP, PRCAL #### [address] [address] [employer]: Sabas Lamb MD Basic Metabolic Profon 10-24 (cont.) [facility] Comment on above: Result Comment: Aver age GFR for 50-59 years old: 93 mL/min/1.73sq m Chronic Kidney Disease: <60 mL/min/1.73sq m Kidney failure: <15 mL/min/1.73sq m eGFR calculated using average adult body mass. Additional eGFR calculator available at: http://www.OpenROV.com/multiple_crcl_2012.htm Performed By: #### C DP, BMP, CRP, PRCAL #### [address] [address] [employer]: Sabas Lamb MD Anion gap [Moles/Vol] 14 mmol/L Normal 9-17 [facility] Comment on above: Performed By: #### C DP, BMP, CRP, PRCAL #### [address] [id number] [employer]: Sabas Lamb MD Calcium [Mass/Vol] 9.1 mg/dL Normal 8.6-10.4 [facility] Comment on above: Performed By: #### C DP, BMP, CRP, PRCAL #### [facility] [email or web address] [address] [place] [address] [employer]: Sabas Lamb MD Chloride [Moles/Vol] 101 mmol/L Normal 98-107 [facility] Comment on above: Performed By: #### C DP, BMP, CRP, PRCAL #### [facility] [email or web address] [address] [place] [address] [employer]: Sabas Lamb MD CO2 [Moles/Vol] 23 mmol/L Normal 20-31 [facility] Comment on above: Performed By: #### C DP, BMP, CRP, PRCAL #### [facility] [email or web address] [address] [place] [address] [employer]: Sabas Lamb MD Creatinine [Mass/Vol] 0.34 mg/dL Low 0.50-0.90 [facility] Comment on above: Performed By: #### C DP, BMP, CRP, PRCAL #### [address] [address] [employer]: Sabas Lamb MD GFR, Amer >60 Normal >60 [facility] Comment on above: Performed By: #### C DP, BMP, CRP, PRCAL #### [facility] [email or web address] [address] [place] [address] [employer]: Sabas Lamb MD GFR,non Amer >60 Normal >60 [facility] Comment on above: Performed By: #### C DP, BMP, CRP, PRCAL #### [facility] [email or web address] [address] [place] [address] [employer]: Sabas Lamb MD Glucose [Mass/Vol] 86 mg/dL Normal 70-99 [facility] Comment on above: Performed By: #### C DP, BMP, CRP, PRCAL #### [facility] [email or web address] [address] [place] [address] [employer]: Sabas Lamb MD Potassium [Moles/Vol] 3.9 mmol/L Normal 3.7-5.3 [facility] Comment on above: Performed By: #### C DP, BMP, CRP, PRCAL #### [facility] [email or web address] [address] [place] [address] [employer]: Sabas Lamb MD Sodium [Moles/Vol] 138 mmol/L Normal 135-144 [facility] Comment on above: Performed By: #### C DP, BMP, CRP, PRCAL #### [address] [address] [employer]: Sabas Lamb MD Urea nitrogen [Mass/Vol] 11 mg/dL Normal 6-20 [facility] Comment on above: Performed By: #### C DP, BMP, CRP, PRCAL #### [address] [address] [employer]: Sabas Lamb MD BUN/CRE Ratio NOT REPORTED Normal -20 [facility] Comment on above: Performed By: #### C DP, BMP, CRP, PRCAL #### [facility] [email or web address] [address] [place] [address] [employer]: Sabas Lamb MD Staging: NOT REPORTED Normal [facility] Comment on above: Performed By: #### C DP, BMP, CRP, PRCAL #### [facility] [email or web address] [address] [place] [address] [employer]: Sabas Lamb MD CBC with Diffon 10-24-2018 Abs. Basophil 0.03 k/uL Normal 0.00-0.20 [facility] Comment on above: Performed By: #### C DP, BMP, CRP, PRCAL #### [address] [address] [employer]: Sabas Lamb MD Abs.Imm.Granulocy te 0.05 k/uL Normal 0.00-0.30 [facility] Comment on above: Performed By: #### C DP, BMP, CRP, PRCAL #### [place] [address] [employer]: Sabas Lamb MD Abs.Neutrophil (Seg) 12.06 k/uL High 1.50-8.10 [facility] Comment on above: Performed By: #### C DP, BMP, CRP, PRCAL #### [place] [address] [employer]: Sabas Lamb MD Basophils/100 WBC (Bld) 0 % Normal 0-2 [facility] Comment on above: Performed By: #### C DP, BMP, CRP, PRCAL #### [address] [address] [employer]: Sabas Lamb MD Eosinophils (Bld) [#/Vol] 10*3/uL Normal 0.00-0.44 [facility] Comment on above: Performed By: #### C DP, BMP, CRP, PRCAL #### [address] [address] [employer]: Sabas Lamb MD Eosinophils/100 WBC (Bld) 0 % Low 1-4 [facility] Comment on above: Performed By: #### C DP, BMP, CRP, PRCAL #### [facility] [email or web address] [address] [place] [address] [employer]: Sabas Lamb MD Erythrocyte distribution width (RBC) [Ratio] 11.9 % Normal 11.8-14.4 [facility] Comment on above: Performed By: #### C DP, BMP, CRP, PRCAL #### [address] [address] [employer]: Sabas Lamb MD Hematocrit (Bld) [Volume fraction] 39.6 % Normal 36.3-47.1 [facility] Comment on above: Performed By: #### C DP, BMP, CRP, PRCAL #### [place] [address] [employer]: Sabas Lamb MD Hemoglobin (Bld) [Mass/Vol] 12.3 g/dL Normal 11.9-15.1 [facility] Comment on above: Performed By: #### C DP, BMP, CRP, PRCAL #### [place] [address] [employer]: Sabas Lamb MD Immature granulocytes (Bld) [#/Vol] 0 % Normal 0 [facility] Comment on above: Performed By: #### C DP, BMP, CRP, PRCAL #### [place] [address] [employer]: Sabas Lamb MD Lymphocytes (Bld) [#/Vol] 0.82 10*3/uL Low 1.10-3.70 [facility] Comment on above: Performed By: #### C DP, BMP, CRP, PRCAL #### [address] [address] [employer]: Sabas Lamb MD Lymphocytes/100 WBC (Bld) 6 % Low 24-43 [facility] Comment on above: Performed By: #### C DP, BMP, CRP, PRCAL #### [address] [address] [employer]: Sabas Lamb MD MCH (RBC) [Entitic mass] 31.1 pg Normal 25.2-33.5 [facility] Comment on above: Performed By: #### C DP, BMP, CRP, PRCAL #### [address] [address] [employer]: Sabas Lamb MD MCHC (RBC) [Mass/Vol] 31.1 g/dL Normal 28.4-34.8 [facility] Comment on above: Performed By: #### C DP, BMP, CRP, PRCAL #### [place] [address] [employer]: Sabas Lamb MD MCV (RBC) [Entitic vol] 100.3 fL Normal 82.6-102.9 [facility] Comment on above: Performed By: #### C DP, BMP, CRP, PRCAL #### [place] [address] [employer]: Sabas Lamb MD Monocytes (Bld) [#/Vol] 0.80 10*3/uL Normal 0.10-1.20 [facility] Comment on above: Performed By: #### C DP, BMP, CRP, PRCAL #### [place] [address] [employer]: Sabas Lamb MD Monocytes/100 WBC (Bld) 6 % Normal 3-12 [facility] Comment on above: Performed By: #### C DP, BMP, CRP, PRCAL #### [place] [address] [employer]: Sabas Lamb MD Neutrophil (Seg) 88 % High 36-65 [facility] Comment on above: Performed By: #### C DP, BMP, CRP, PRCAL #### [address] [address] [employer]: Sabas Lamb MD NRBC Automated 0.0 per 100 WBC Normal 0.0 [facility] Comment on above: Performed By: #### C DP, BMP, CRP, PRCAL #### [address] [address] [employer]: Sabas Lamb MD Platelet mean volume (Bld) [Entitic vol] 11.5 fL Normal 8.1-13.5 [facility] Comment on above: Performed By: #### C DP, BMP, CRP, PRCAL #### [address] [address] [employer]: Sabas Lamb MD Platelets (Bld) [#/Vol] 261 10*3/uL Normal 138-453 [facility] Comment on above: Performed By: #### C DP, BMP, CRP, PRCAL #### [address] [address] [employer]: Sabas Lamb MD RBC (Bld) [#/Vol] 3.95 10*6/uL Normal 3.95-5.11 [facility] Comment on above: Performed By: #### C DP, BMP, CRP, PRCAL #### [address] [address] [employer]: Sabas Lamb MD WBC (Bld) [#/Vol] 13.8 10*3/uL High 3.5-11.3 [facility] Comment on above: Performed By: #### C DP, BMP, CRP, PRCAL #### [facility] [email or web address] [address] [place] [address] [employer]: Sabas Lamb MD Auto Diff Performed NOT REPORTED Normal [facility] Comment on above: Performed By: #### C DP, BMP, CRP, PRCAL #### [facility] [email or web address] [address] [place] [address] [employer]: Sabas Lamb MD Platelets (Bld) [#/Vol] NOT REPORTED Normal [facility] Comment on above: Performed By: #### C DP, BMP, CRP, PRCAL #### [facility] [email or web address] [address] [place] [address] [employer]: Sabas Lamb MD RBC morphology finding Nom (Bld) NOT REPORTED Normal [facility] Comment on above: Performed By: #### C DP, BMP, CRP, PRCAL #### [facility] [email or web address] [address] [place] [address] [employer]: Sabas Lamb MD WBC Morphology NOT REPORTED Normal [facility] Comment on above: Performed By: #### C DP, BMP, CRP, PRCAL #### [address] [id number] [employer]: Sabas Lamb MD PTon 10-24-2018 INR Coag (PPP) [Relative time] 1.0 {INR} Normal [facility] Comment on above: Result Comment: Therapeutic Range: Moderate Anticoagulant Intensity: INR = 2.0-3.0 High Anticoagulant Intensity: INR = 2.5-3.5 Performed By: #### C DP, BMP, CRP, PRCAL #### [address] [id number] [employer]: Sabas Lamb MD PT Coag (PPP) [Time] 10.8 s Normal 9.0-12.0 [facility] Comment on above: Performed By: #### C DP, BMP, CRP, PRCAL #### [facility] [email or web address] [address] [place] [address] [id number] [employer]: Sabas Lamb MD Basic Metabolic Profon 10-23 (cont.) Normal [facility] Comment on above: Result Comment: Aver age GFR for 50-59 years old: 93 mL/min/1.73sq m Chronic Kidney Disease: <60 mL/min/1.73sq m Kidney failure: <15 mL/min/1.73sq m eGFR calculated using average adult body mass. Additional eGFR calculator available at: http://www.OpenROV.[employer]/multiple_crcl_2012.htm Performed By: #### C DP, BMP, CRP, PRCAL #### [facility] [email or web address] [address] [place] [address] [employer]: Sabas Lamb MD Anion gap [Moles/Vol] 14 mmol/L Normal 9-17 [facility] Comment on above: Performed By: #### C DP, BMP, CRP, PRCAL #### [facility] [email or web address] [address] [place] [address] [employer]: Sabas Lamb MD Calcium [Mass/Vol] 8.2 mg/dL Low 8.6-10.4 [facility] Comment on above: Performed By: #### C DP, BMP, CRP, PRCAL #### [facility] [email or web address] [address] [place] [address] [employer]: Sabas Lamb MD Chloride [Moles/Vol] 107 mmol/L Normal 98-107 [facility] Comment on above: Performed By: #### C DP, BMP, CRP, PRCAL #### [facility] [email or web address] [address] [place] [address] [employer]: Sabas Lamb MD CO2 [Moles/Vol] 20 mmol/L Normal 20-31 [facility] Comment on above: Performed By: #### C DP, BMP, CRP, PRCAL #### [facility] [email or web address] [address] [place] [address] [employer]: Sabas Lamb MD Creatinine [Mass/Vol] 0.42 mg/dL Low 0.50-0.90 [facility] Comment on above: Performed By: #### C DP, BMP, CRP, PRCAL #### [facility] [email or web address] [address] [place] [address] [employer]: Sabas Lamb MD GFR, Amer >60 Normal >60 [facility] Comment on above: Performed By: #### C DP, BMP, CRP, PRCAL #### [address] [address] [employer]: Sabas Lamb MD GFR,non Amer >60 Normal >60 [facility] Comment on above: Performed By: #### C DP, BMP, CRP, PRCAL #### [address] [address] [employer]: Sabas Lamb MD Glucose [Mass/Vol] 87 mg/dL Normal 70-99 [facility] Comment on above: Performed By: #### C DP, BMP, CRP, PRCAL #### [address] [address] [employer]: Sabas Lamb MD Potassium [Moles/Vol] 3.9 mmol/L Normal 3.7-5.3 [facility] Comment on above: Performed By: #### C DP, BMP, CRP, PRCAL #### [address] [address] [employer]: Sabas Lamb MD Sodium [Moles/Vol] 141 mmol/L Normal 135-144 [facility] Comment on above: Performed By: #### C DP, BMP, CRP, PRCAL #### [address] [address] [employer]: Sabas Lamb MD Urea nitrogen [Mass/Vol] 14 mg/dL Normal -20 [facility] Comment on above: Performed By: #### C DP, BMP, CRP, PRCAL #### [facility] [email or web address] [address] [place] [address] [employer]: Sabas Lamb MD BUN/CRE Ratio NOT REPORTED Normal -20 [facility] Comment on above: Performed By: #### C DP, BMP, CRP, PRCAL #### [facility] [email or web address] [address] [place] [address] [employer]: Sabas Lamb MD Staging: NOT REPORTED Normal [facility] Comment on above: Performed By: #### C DP, BMP, CRP, PRCAL #### [address] [address] [employer]: Sabas Lamb MD C-Reactive Proteinon 019 CRP [Mass/Vol] 40.6 mg/L High 0.0-5.0 [facility] Comment on above: Performed By: #### C DP, BMP, CRP, PRCAL #### [facility] [email or web address] [address] [place] [address] [employer]: Sabas Lamb MD CBC with Diffon 10-23-2018 Abs. Basophil 0.03 k/uL Normal 0.00-0.20 [facility] Comment on above: Performed By: #### C DP, BMP, CRP, PRCAL #### [address] [address] [employer]: Sabas Lamb MD Abs.Imm.Granulocy te 0.05 k/uL Normal 0.00-0.30 [facility] Comment on above: Performed By: #### C DP, BMP, CRP, PRCAL #### [facility] [email or web address] [address] [place] [address] [employer]: Sabas Lamb MD Abs.Neutrophil (Seg) 13.74 k/uL High 1.50-8.10 [facility] Comment on above: Performed By: #### C DP, BMP, CRP, PRCAL #### [facility] [email or web address] [address] [place] [address] [employer]: Sabas Lamb MD Basophils/100 WBC (Bld) 0 % Normal 0-2 [facility] Comment on above: Performed By: #### C DP, BMP, CRP, PRCAL #### [facility] [email or web address] [address] [place] [address] [employer]: Sabas Lamb MD Eosinophils (Bld) [#/Vol] 10*3/uL Normal 0.00-0.44 [facility] Comment on above: Performed By: #### C DP, BMP, CRP, PRCAL #### [address] [address] [employer]: Sabas Lamb MD Eosinophils/100 WBC (Bld) 0 % Low 1-4 [facility] Comment on above: Performed By: #### C DP, BMP, CRP, PRCAL #### [address] [address] [employer]: Sabas Lamb MD Erythrocyte distribution width (RBC) [Ratio] 12.1 % Normal 11.8-14.4 [facility] Comment on above: Performed By: #### C DP, BMP, CRP, PRCAL #### [address] [address] [employer]: Sabas Lamb MD Hematocrit (Bld) [Volume fraction] 35.7 % Low 36.3-47.1 [facility] Comment on above: Performed By: #### C DP, BMP, CRP, PRCAL #### [address] [address] [employer]: Sabas Lamb MD Hemoglobin (Bld) [Mass/Vol] 11.5 g/dL Low 11.9-15.1 [facility] Comment on above: Performed By: #### C DP, BMP, CRP, PRCAL #### [address] [address] [employer]: Sabas Lamb MD Immature granulocytes (Bld) [#/Vol] 0 % Normal 0 [facility] Comment on above: Performed By: #### C DP, BMP, CRP, PRCAL #### [address] [address] [employer]: Sabas Lamb MD Lymphocytes (Bld) [#/Vol] 1.21 10*3/uL Normal 1.10-3.70 [facility] Comment on above: Performed By: #### C DP, BMP, CRP, PRCAL #### [address] [address] [employer]: Sabas Lamb MD Lymphocytes/100 WBC (Bld) 8 % Low 24-43 [facility] Comment on above: Performed By: #### C DP, BMP, CRP, PRCAL #### [address] [address] [employer]: Sabas Lamb MD MCH (RBC) [Entitic mass] 31.8 pg Normal 25.2-33.5 [facility] Comment on above: Performed By: #### C DP, BMP, CRP, PRCAL #### [address] [address] [employer]: Sabas Lamb MD MCHC (RBC) [Mass/Vol] 32.2 g/dL Normal 28.4-34.8 [facility] Comment on above: Performed By: #### C DP, BMP, CRP, PRCAL #### [address] [address] [employer]: Sabas Lamb MD MCV (RBC) [Entitic vol] 98.6 fL Normal 82.6-102.9 [facility] Comment on above: Performed By: #### C DP, BMP, CRP, PRCAL #### [address] [address] [employer]: Sabas Lamb MD Monocytes (Bld) [#/Vol] 1.01 10*3/uL Normal 0.10-1.20 [facility] Comment on above: Performed By: #### C DP, BMP, CRP, PRCAL #### [address] [address] [employer]: Sabas Lamb MD Monocytes/100 WBC (Bld) 6 % Normal 3-12 [facility] Comment on above: Performed By: #### C DP, BMP, CRP, PRCAL #### [address] [address] [employer]: Sabas Lamb MD Neutrophil (Seg) 86 % High 36-65 [facility] Comment on above: Performed By: #### C DP, BMP, CRP, PRCAL #### [address] [address] [employer]: Sabas Lamb MD NRBC Automated 0.0 per 100 WBC Normal 0.0 [facility] Comment on above: Performed By: #### C DP, BMP, CRP, PRCAL #### [address] [address] [employer]: Sabas Lamb MD Platelet mean volume (Bld) [Entitic vol] 11.7 fL Normal 8.1-13.5 [facility] Comment on above: Performed By: #### C DP, BMP, CRP, PRCAL #### [address] [address] [employer]: Sabas Lamb MD Platelets (Bld) [#/Vol] 268 10*3/uL Normal 138-453 [facility] Comment on above: Performed By: #### C DP, BMP, CRP, PRCAL #### [facility] [email or web address] [address] [place] [address] [employer]: Sabas Lamb MD RBC (Bld) [#/Vol] 3.62 10*6/uL Low 3.95-5.11 [facility] Comment on above: Performed By: #### C DP, BMP, CRP, PRCAL #### [address] [address] [employer]: Sabas Lamb MD WBC (Bld) [#/Vol] 16.1 10*3/uL High 3.5-11.3 [facility] Comment on above: Performed By: #### C DP, BMP, CRP, PRCAL #### [address] [address] [employer]: Sabas Lamb MD Auto Diff Performed NOT REPORTED Normal [facility] Comment on above: Performed By: #### C DP, BMP, CRP, PRCAL #### [address] [address] [employer]: Sabas Lamb MD Platelets (Bld) [#/Vol] NOT REPORTED Normal [facility] Comment on above: Performed By: #### C DP, BMP, CRP, PRCAL #### [address] [address] [employer]: Sabas Lamb MD RBC morphology finding Nom (Bld) NOT REPORTED Normal [facility] Comment on above: Performed By: #### C DP, BMP, CRP, PRCAL #### [address] [address] [employer]: Sabas Lamb MD WBC Morphology NOT REPORTED Normal [facility] Comment on above: Performed By: #### C DP, BMP, CRP, PRCAL #### [address] [address] [employer]: Sabas Lamb MD CT HEAD WO CONTRASTon [...] Cas Contreras MD 10/23/18 Final result Normal [facility] MRI BRAIN W CONTRASTon 10-23 MRI BRAIN [...] frontal lobe. Chronic pansinusitis. Interpreted by: Freddie Madlonado MD Signed by: Freddie Maldonado MD 10/23/18 Final result Normal [facility] OPERATIVE REPORTon 10-23-201 9 OPERATIVE REPORT [address] [address] OPERATIVE REPORT PATIENT NAME: DACIA FINLEY : 1960 MED REC NO: [id number] ROOM: [facility] ACCOUNT NO: [id number] ADMIT DATE: 10/22/2018 PROVIDER: Meera Rojas DATE [...] with lightheadedness and coughing. She presented at [facility] ER earlier today due to these complaints and was found to have a sizeable right-sided subdural hematoma. She was transferred to [place] for further management. She was reported to be neurologically intact when at the outside hospital, but upon arrival to the ER at [place], she was noted to have some mild [...] evidence of complication. MEERA ROJAS [id number] Doc#: [id number] CC: Normal [facility] Procalcitoninon 10-23-2018 Procalcitonin 0.06 ng/mL Normal <0.09 [facility] Comment on above: Result Comment: Suspected Sepsis: [...] entered into the Change in Procalcitonin Calculator ([email or web address]-wvw-kdivrkllzp.Move Networks) to determine the patient's Mortality Risk Prognosis Performed By: #### C DP, BMP, CRP, PRCAL #### [place] [address] [employer]: Sabas Lamb MD XR CHEST PORTABLEon 10-24-19 [...] Carlos Carlson MD 10/23/18 Final result Normal [facility] Platelets,Transfuseon 2018 Platelets,Transfu se Unit Number [id number] Blood Component Type Leukocyte Reduced Irradiated Plateletpheresis Unit Division 00 Status of Unit TRANSFUSED Transfusion Status OK TO TRANSFUSE Normal [facility] Comment on above: Performed By: #### T PLT #### [facility] [address] [place] [address] [employer]: Sabas Lamb MD Type + Screenon 10-22-2018 Type + Screen Sample Expiration Arm Band Number BE [id number] ABO/Rh(D) A POSITIVE Antibody Screen NEGATIVE Normal [facility] Comment on above: Performed By: #### T YS #### [facility] [address] [place] [address] [employer]: Saabs Lamb MD Discharge Summaryon 06-07-20 Discharge Summary [id number] Admitted: 06/05/2017 Discharged: 06/06/2017 Date of : 1960 Physician: Rachele Post DO DISCHARGE SUMMARYDISCHARGE SERVICE: CCU.PRIMARY DIAGNOSIS: Acute coronary syndrome.SECONDARY DIAGNOSIS: Migraine.PROCEDURE: Percutaneous coronary intervention with stent placement.HOSPITAL COURSE: This is a 56-year-old female with past medical history ofmigraines, who was transferred from [facility]. She presented therewith chest discomfort and was found to have EKG abnormalities. In the lastmonth, the patient reported 3 episodes of chest pain with the latest being. The chest pain was also associated with sweating, shortnessof breath, and nausea. She was transferred from [facility] andadmitted to the CCU. The patient's troponins were remained negative, butwith her chest pain and EKG changes, she was taken to the computer lab assistant. In thecath lab, this showed 90% stenosis [...] Dict: 06/06/2017/02:36 P/ROSI Keyate Trans: 06/07/2017 09:17 A/[id number]: Ryan Arevalo M.D. [address] [facility] [id number] Kel Bueno M.D. [address] [place] [address] [facility] BASIC METABOLIC PANELon 12-3 Calcium 9.3 mg/dL Normal 8.6-10.[address] [facility] Comment on above: Order Comment: Unkno wn Performed By: #### 0 0071, [address]497 ####[facility] [place] [address], [facility] Chloride 105 mmol/L Normal 98-[address] [facility] Comment on above: Order Comment: Unkno wn Performed By: #### 0 0071, 87842 ####[facility] [facility] [place] [address], [facility] CO2 24 mmol/L Normal 21-[address] [facility] Comment on above: Order Comment: Unkno wn Performed By: #### 0 0071, 69651 ####[facility] [facility] [place] [address], [facility] Creatinine 0.72 mg/dL Normal 0.60-1.[address] [facility] Comment on above: Order Comment: Unkno wn Performed By: #### 0 0071, 23866 ####[facility] [facility] [place] [address], [facility] eGFR (black) mL/min/{1.73_m2} Normal >[address] [facility] Comment on above: Order Comment: Unkno wn Performed By: #### 0 0071, 94556 ####[facility] [facility].[address] eGFR (non-black) mL/min/{1.73_m2} Normal >[address] [facility] Comment on above: Order Comment: Unkno wn Performed By: #### 0 0071, 37633 ####[facility] [facility] [place] [address], [facility] Glucose mass conc 89 mg/dL Normal 70-[address] [facility] Comment on above: Order Comment: Unkno wn Performed By: #### 0 0071, 20121 ####[facility] [facility] [place] [address], [facility] Potassium molar conc 3.8 mmol/L Normal 3.5-5.[address] [facility] Comment on above: Order Comment: Unkno wn Performed By: #### 0 0071, 21420 ####[facility] [facility] [place] [address], [facility] Sodium 139 mmol/L Normal 136-[address] [facility] Comment on above: Order Comment: Unkno wn Performed By: #### 0 1, 78675 ####[facility] [facility] [address], [place] [id number] [place] [address] Urea nitrogen 14 mg/dL Normal 7-[address] [facility] Comment on above: Order Comment: Unkno wn Performed By: #### 0 007, 79982 ####[facility] [facility] [address], [place] [id number] [place] [address] CBC COMPLETE BLOOD COUNTon Erythrocyte distribution width Auto Ratio (RBC) 13.3 % Normal 11.5-16.[address] [facility] Comment on above: Order Comment: Unkno wn Performed By: #### 5 0608 ####[facility] [facility].[address] Erythrocytes (RBC) 4.43 mill/mm3 Normal 3.50-5.[address] [facility] Comment on above: Order Comment: Unkno wn Performed By: #### 5 0608 ####[facility] [facility], [place] [id number] [place] [address] Hematocrit (HCT) 40.9 % Normal 36.0-48.[address] [facility] Comment on above: Order Comment: Unkno wn Performed By: #### 5 0608 ####[facility] [facility], [place] [id number] [place] [address] Hemoglobin mass conc (Bld) 13.6 g/dL Normal 12.0-15.[address] [facility] Comment on above: Order Comment: Unkno wn Performed By: #### 5 0608 ####[facility] [facility] [place] [address], [facility] MCH 30.7 pg Normal 24.0-32.[address] [facility] Comment on above: Order Comment: Unkno wn Performed By: #### 5 0608 ####[facility] [place] [address], [facility] MCHC mass conc (RBC) 33.2 g/dL Normal 32.0-36.[address] [facility] Comment on above: Order Comment: Unkno wn Performed By: #### 5 0608 ####[facility] MCV 92.2 fL Normal 80.0-100.[address] [facility] [facility] Comment on above: Order Comment: Unkno wn Performed By: #### 5 0608 ####[facility] PLAT CNT 194 Thou/mm3 Normal 100-[address] [facility] Comment on above: Order Comment: Unkno wn Performed By: #### 5 0608 ####[place] [address] WBC (Leukocytes) 10.8 Thou/mm3 High 4.0-10.[address] [facility] Comment on above: Order Comment: Unkno wn Performed By: #### 5 0608 ####[facility] Cardiovascular Lab Reporton 06-06-2017 Cardiovascular Lab Report [facility] [place] MR #: [id number] Physician: Elías Zhao M.D.Medicine Service Date: 06/05/2017Division of Birthdate: 1960Cardiology Room #: 3CD [id number] CardiovascularServicesRobert [place] [address]Phone Fax Cardiovascular Laboratory ReportINDICATION: Dacia Finley is [...] signed informed consent. She was brought to computer lab assistant in a fastingstate. The right groin area was prepped and draped in usual fashion.Using micropuncture technique, the right common femoral artery wasaccessed. The inner cannula was advanced and limited right femoralangiography was performed followed by upsizing to a 5-Nauruan x 11 cmsheath. Bilateral selective carotid angiography was then performed using5-Nauruan JL4 and JR4 diagnostic catheters. Catheters were removed.Heparin was administered intravenously and therapeutic ACT confirmed duringthe procedure. A 5-Nauruan JR4 guiding catheter was advanced and used toengage the right coronary ostium. A Parental Health wire was advanced into thedistal RCA. Balloon [...] stentfollowed by post dilatation using NC Quantum [place] 3.0 x 20 mm noncompliantballoon inflated at [...] 06/05/2017/03:03 P/Elías Cannon M.D.Date Trans: 06/06/2017 07:01 A/[id number]_[id number]: Ryan Arevalo M.D. [facility] [address] [facility] [place] [place] [facility] [id number] Kel Bueno M.D. [facility]5 [facility] [address] [facility] MAGNESIUM BLOODon 06-06-2017 Magnesium 1.9 mg/dL Normal 1.9-2.[address] [facility] Comment on above: Performed By: #### 5 0608 ####[facility] [facility].[address] APTTon 06-05-2017 aPTT 32.6 s Normal 25.0-35.[address] [facility] Comment on above: Order Comment: [...] THIS PURPOSE. Performed By: #### 5 6101, [id number] ####[facility] [facility] [place] [place] [address], [facility] BASIC METABOLIC PANELon - Calcium 8.9 mg/dL Normal 8.6-10.[address] [facility] Comment on above: Order Comment: No: D o not add to previous draw Performed By: #### 0 0071 ####[facility] [facility] [place] [place] [address], [facility] Chloride 106 mmol/L Normal 98-[address] [facility] Comment on above: Order Comment: No: D o not add to previous draw Performed By: #### 0 0071 ####[facility] [facility] [place] [place] [address], [facility] CO2 28 mmol/L Normal 21-[address] [facility] Comment on above: Order Comment: No: D o not add to previous draw Performed By: #### 0 0071 ####[facility] [place] [address], [facility] Creatinine 0.76 mg/dL Normal 0.60-1.[address] [facility] Comment on above: Order Comment: No: D o not add to previous draw Performed By: #### 0 0071 ####[facility] [place] [address], [facility] eGFR (black) mL/min/{1.73_m2} Normal >[address] [facility] Comment on above: Order Comment: No: D o not add to previous draw Performed By: #### 0 0071 ####[facility] [place] [address], [facility] eGFR (non-black) mL/min/{1.73_m2} Normal >[address] [facility] Comment on above: Order Comment: No: D o not add to previous draw Performed By: #### 0 0071 ####[facility] [place] [address], [facility] Glucose mass conc 88 mg/dL Normal 70-[address] [facility] Comment on above: Order Comment: No: D o not add to previous draw Performed By: #### 0 0071 ####[facility] [place] [address], [facility] Potassium molar conc 3.8 mmol/L Normal 3.5-5.[address] [facility] Comment on above: Order Comment: No: D o not add to previous draw Performed By: #### 0 0071 ####[facility] [place] [address], [facility] Sodium 138 mmol/L Normal 136-[address] [facility] Comment on above: Order Comment: No: D o not add to previous draw Performed By: #### 0 0071 ####[facility] [id number], [facility] Urea nitrogen 10 mg/dL Normal 7-[address] [facility] Comment on above: Order Comment: No: D o not add to previous draw Performed By: #### 0 0071 ####[facility] CBC COMPLETE BLOOD COUNTon Erythrocyte distribution width Auto Ratio (RBC) 13.9 % Normal 11.5-16.[address] [facility] Comment on above: Order Comment: No: D o not add to previous draw Performed By: #### 5 0608 ####[facility] Erythrocytes (RBC) 4.66 mill/mm3 Normal 3.50-5.[address] [facility] Comment on above: Order Comment: No: D o not add to previous draw Performed By: #### 5 0608 ####[facility] [facility].[address] Hematocrit (HCT) 42.9 % Normal 36.0-48.[address] [facility] Comment on above: Order Comment: No: D o not add to previous draw Performed By: #### 5 0608 ####[place] [address] [facility].[address] Hemoglobin mass conc (Bld) 14.2 g/dL Normal 12.0-15.[address] [facility] Comment on above: Order Comment: No: D o not add to previous draw Performed By: #### 5 0608 ####[facility] MCH 30.5 pg Normal 24.0-32.[address] [facility] Comment on above: Order Comment: No: D o not add to previous draw Performed By: #### 5 0608 ####[facility] MCHC mass conc (RBC) 33.1 g/dL Normal 32.0-36.[address] [facility] Comment on above: Order Comment: No: D o not add to previous draw Performed By: #### 5 0608 ####[facility] [place] [address], [facility] MCV 92.0 fL Normal 80.0-100.[address] [facility] Comment on above: Order Comment: No: D o not add to previous draw Performed By: #### 5 0608 ####[facility] [place] [address], [facility] PLAT CNT 178 Thou/mm3 Normal 100-[address] [facility] Comment on above: Order Comment: No: D o not add to previous draw Performed By: #### 5 0608 ####[facility] WBC (Leukocytes) 6.6 Thou/mm3 Normal 4.0-10.[address] [facility] Comment on above: Order Comment: No: D o not add to previous draw Performed By: #### 5 0608 ####[facility] Erythrocyte distribution width Auto Ratio (RBC) 13.1 % Normal 11.5-16.[address] [facility] Comment on above: Order Comment: No: D o not add to previous draw Performed By: #### 5 0608 ####[facility] Erythrocytes (RBC) 4.49 mill/mm3 Normal 3.50-5.[address] [facility] Comment on above: Order Comment: No: D o not add to previous draw Performed By: #### 5 0608 ####[facility] Hematocrit (HCT) 41.7 % Normal 36.0-48.[address] [facility] Comment on above: Order Comment: No: D o not add to previous draw Performed By: #### 5 0608 ####[facility] [place] [address], [facility] Hemoglobin mass conc (Bld) 13.9 g/dL Normal 12.0-15.[address] [facility] Comment on above: Order Comment: No: D o not add to previous draw Performed By: #### 5 0608 ####[facility] [place] [address], [facility] MCH 31.1 pg Normal 24.0-32.[address] [facility] Comment on above: Order Comment: No: D o not add to previous draw Performed By: #### 5 0608 ####[facility] MCHC mass conc (RBC) 33.5 g/dL Normal 32.0-36.[address] [facility] Comment on above: Order Comment: No: D o not add to previous draw Performed By: #### 5 0608 ####[facility] MCV 92.8 fL Normal 80.0-100.[address] [facility] Comment on above: Order Comment: No: D o not add to previous draw Performed By: #### 5 0608 ####[place] [address] [place] [address], [facility] PLAT CNT 172 Thou/mm3 Normal 100-[address] [facility] Comment on above: Order Comment: No: D o not add to previous draw Performed By: #### 5 0608 ####[facility] [place] [address], [facility] WBC (Leukocytes) 6.7 Thou/mm3 Normal 4.0-10.[address] [facility] Comment on above: Order Comment: No: D o not add to previous draw Performed By: #### 5 0608 ####[facility] [place] [address], [place] History and Physicalon 06-05 History and Physical [id number] Admitted: 06/05/2017 Date of : 1960 Attending Physician: Wayne Donis MD Room #: 3CD [id number] Discharge Date: HISTORY AND PHYSICALCHIEF COMPLAINT: Chest pain.HISTORY OF PRESENT ILLNESS: The patient is a 56-year-old female withhistory of migraines, who was transferred from [facility] after shepresented there with chest discomfort [...] chest. [facility] and he did EKG, which showed some T waveinversions in the lateral leads, so [facility]. Her [facility] there was negative and EKG again asmentioned, was abnormal with T wave inversion in the lateral leads. [facility]was [facility] for [facility] evaluation andmanagement. When I [...] or drug use.FAMILY HISTORY: Father of an VT at age 79 and mother of VT whenshe was having an open heart surgery at age 57.REVIEW OF SYSTEMS: A 10-point review of systems was done, and pertinentpositives and negatives mentioned in the HPI.MEDICATIONS: The patient only takes Imitrex for migraines as needed.PHYSICAL EXAMINATION: VITAL SIGNS: Temperature 98, pulse 75, [id number], blood pressure 129/80, and saturating 100% on [...] 06/05/2017/03:33 A/Wayne Donis MDDate Trans: 06/05/2017 04:23 [id number]/[id number] Normal [facility] PROTHROMBIN TIMEon 7 INR Coag RelTime (PPP) 0.98 {INR} Normal 0.91-1.[address] [facility] Comment on above: Order Comment: [...] OF ACTION, CLINICALEFFECTIVENESS, AND OPTIMAL THERAPEUTIC RANGE. [id number]. Performed By: #### 5 6101, [id number] ####[facility] Prothrombin time (PT) Coag time (PPP) 13.0 s Normal 12.3-14.[address] [facility] Comment on above: Order Comment: No: D o not add to previous draw Result Comment: ALL RESULTS MUST BE INTERPRETED WITH RESPECT TO BLOOD DRAWING ARTIFACTOR DILUTION ERROR OF ANTICOAGULANT AT THE TIME OF SAMPLING. Performed By: #### 5 6101, [id number] ####[facility] [place] [address], [facility] TROPONIN-Ion 06-05-2017 Troponin I.cardiac mass conc 0.03 ng/mL Normal 0.00-0.04 [facility] Comment on above: Order Comment: No: D o not add to previous draw Result Comment: REFE RENCE RANGES: 0.00 - 0.04 ng/ml NORMAL 0.05 - 0.50 ng/ml INDETERMINATE > 0.50 ng/ml CONSISTENT WITH AN M.I. Performed By: #### 3 5200 ####[facility] [place] [address], [facility] Troponin I.cardiac mass conc 0.01 ng/mL Normal 0.00-0.04 [facility] Comment on above: Order Comment: No: D o not add to previous draw Result Comment: REFE RENCE RANGES: 0.00 - 0.04 ng/ml NORMAL 0.05 - 0.50 ng/ml INDETERMINATE > 0.50 ng/ml CONSISTENT WITH AN M.I. Performed By: #### 3 5200 ####[facility] [place] [address], [facility] Troponin I.cardiac mass conc 0.02 ng/mL Normal 0.00-0.[address] [facility] Comment on above: Order Comment: No: D o not add to previous draw Result Comment: REFE RENCE RANGES: 0.00 - 0.04 ng/ml NORMAL 0.05 - 0.50 ng/ml INDETERMINATE > 0.50 ng/ml CONSISTENT WITH AN M.I. Performed By: #### 3 5200 ####[facility] [place] [address], [facility] Vital Signs Date Time Vital Sign Value Performing Clinician Samir olivas 01-19-2023 11:15-0400 Diastolic blood pressure 92 mm[Hg] Elvira Scherer DO Work Phone: [facility] 01-19-2023 11:15-0400 Heart rate 75 /min Elvira Scherer DO Work Phone: [facility] [place] 01-19-2023 11:15-0400 Respiratory rate 16 /min Elvira Scherer DO Work Phone: [facility] [place] 01-19-2023 11:15-0400 SaO2% (BldA) [Mass fraction] 97 % Elvira Scherer DO Work Phone: [facility] [place] 01-19-2023 11:15-0400 Systolic blood pressure 112 mm[Hg] Elvira Scherer DO Work Phone: [facility] [place] 01-19-2023 10:48-0400 Body temperature 96.91 [degF] Elvira Scherer DO Work Phone: [facility] [place] 01-19-2023 09:50-0400 Body height 154.9 cm Elvira Scherer DO Work Phone: [facility] [place] 01-19-2023 09:50-0400 Body mass index (BMI) [Ratio] 19.84 kg/m2 Elvira Scherer DO Work Phone: [facility] [place] 01-19-2023 09:50-0400 Body weight 47.63 kg Elvira Scherer DO Work Phone: [facility] [place] 12-01-2022 10:15-0400 Diastolic blood pressure 67 mm[Hg] Elvira Scherer DO Work Phone: [facility] [place] 12-01-2022 10:15-0400 Heart rate 66 /min Elvira Scherer DO Work Phone: [facility] [place] 12-01-2022 10:15-0400 SaO2% (BldA) [Mass fraction] 97 % Elvira Scherer DO Work Phone: [facility] [place] 12-01-2022 10:15-0400 Systolic blood pressure 112 mm[Hg] Elvira Scherer DO Work Phone: [facility] [place] 12-01-2022 09:41-0400 Body temperature 97 [degF] Elvira Scherer DO Work Phone: [facility] 12-01-2022 09:41-0400 Respiratory rate 18 /min Elvirapietro Shcerer Work Phone: [facility] 12-01-2022 08:20-0400 Body mass index (BMI) [Ratio] 20.18 kg/m2 Elvirapietro Scherer DO Work Phone: [facility] 12-01-2022 08:20-0400 Body weight 48.44 kg Elvirapietro Scherer DO Work Phone: [facility] 11-17-2022 11:32-0400 Body height 154.9 cm Elvira Paul Work Phone: [facility] Encounters Encounter Date Encounter Type Care Provider Facility Start: 01-19-2023 End: 01-19-2023 ambulatory RYAN Warner [facility] Start: 01-19-2023 End: 01-19-2023 Subsequent hospital visit by physician Elvira Scherer DO Work Phone: [facility] Start: 12-01-2022 End: 12-01-2022 ambulatory RYAN Warner [facility] Start: 12-01-2022 End: 12-01-2022 Subsequent hospital visit by physician Elvira Scherer DO Work Phone: [facility] Start: 09-09-2022 End: 09-10-[address] RYAN AREVALO . Facility:[facility] Start: 08-29-2022 Encounter for genera l adult medical examination without abnormal findings DR RYAN AREVALO . [facility] Start: 08-21-2022 End: 08-21-[address] RYAN AREVALO . Facility:[facility] Start: 08-21-2022 End: 08-21-2022 Encounter for general adult medical examination without abnormal findings DR RYAN AREAVLO . Facility:[facility] Start: 08-15-2022 End: 08-16-[address] RYAN ARVEALO . Facility:[facility] Start: 10-22-2018 End: 10-26-2018 Evaluation and management of inpatient MEERA ROJAS [facility] Start: 06-05-2017 End: 06-06-2017 Evaluation and management of inpatient KEL BUENO Facility:[facility] Procedures Date Procedure Procedure Detail Performing Clinician [...] MEERA ROJAS Start: 10-23-2018 AMBULATE PATIENT MEERA ORJAS Start: 10-23-2018 CONTINUE INDWELLING CATHETHER MEERA ROJAS Start: 10-23-2018 ELEVATE HOB MEERA Ray Start: 10-23-2018 FULL CODE MEERA JOSELUISTyler Ray Start: 10-23-2018 INITIATE OXYGEN THER APY PROTOCOL MEERA ROJAS Start: 10-23-2018 INTAKE AND OUTPUT MEERA RJOAS Start: 10-23-2018 NEURO CHECKS MEERA Ray Start: 10-23-2018 OT EVAL AND TREAT MEERA ROJAS Start: 10-23-2018 PLACE INTERMITTENT P NEUMATIC COMPRESSION DEVICE MEERA ROJAS Start: 10-23-2018 PT EVAL AND TREAT MEERA ROJAS Start: 10-23-2018 SEIZURE PRECAUTIONS MERVIN ID BOB Start: 10-23-2018 CASE ASSISTANT EVAL AND TREAT RENNY D BOB Start: [...] cataract of right eye 01/19/2023 10:26 AM [facility] Start: 01-06-2023 Influenza vaccination B [facility] Start: 12-01-2022 End: 12-01-2022 Xcapsl ctrc rmvl insj io lens prosth w/o ecp EYE CATARACT EMULSIFICATION IOL IMPLANT Age-related nuclear cataract of left eye 12/01/2022 9:07 AM [facility] Start: 10-26-2019 Lipid panel Lipids [facility] Start: 08-29-2009 Screening for malign ant neoplasm of breast Breast cancer screen [facility] Start: 08-29-2009 Screening for malign ant neoplasm of lung Low dose CT lung screening &/or counseling [facility] Start: 08-29-2009 Shingles vaccine (1 of 2) Shingles vaccine (1 of 2) [facility] Start: 08-29-2004 Screening for malign ant neoplasm of colon [facility] Start: 08-29-1978 DTaP/Tdap/Td vaccine (1 - Tdap) DTaP/Tdap/Td vaccine (1 - Tdap) [facility] Start: 08-29-1977 Hepatitis C screening Hepatitis C sc reen [facility] Start: 08-29-1974 HIV screening HIV screen [facility] Start: 1971 Depression Screen Depression Screen [facility] Start: 08-29-1965 Pneumococcal 0-64 ye ars Vaccine (1 - PCV) Pneumococcal 0-64 years Vaccine (1 - PCV) [facility] Start: 03-01-1960 COVID-19 Vaccine (#1) COVID-19 Vacci ne (#1) [facility] Oxygen therapy [Mini mum Data Set] Initiate Oxygen Therapy Protocol Respiratory Care Routine Daily until discontinued starting 12/01/2022 [facility] Comment on above: Daily until disconti nued starting 12/01/2022 Oxygen therapy [Mini mum Data Set] Initiate Oxygen Therapy Protocol Respiratory Care Routine Daily until discontinued starting 12/01/2022 [facility] Comment on above: Daily until disconti nued starting 12/01/2022 Oxygen therapy [Mini mum Data Set] Initiate Oxygen Therapy Protocol Respiratory Care Routine Daily until discontinued starting 01/19/2023 [facility] [place] Comment on above: Daily until disconti nued starting 01/19/2023 Oxygen therapy [[facility] Data Set] Initiate Oxygen Therapy Protocol Respiratory Care Routine Daily until discontinued starting 01/19/2023 [facility] [place] Comment on above: Daily until disconti nued starting 01/19/2023 Payers Date Payer Category Payer Unknown [id number] [id number] [id number] 1960 Unknown [id number] 2.16.84 [id number] 1960 Unknown [id number] 2.16.84 [id number] 1960 Unknown [id number] 2.16.84 [id number] 1960 Unknown [id number] 2.16.8 [id number] 1960 Unknown [id number] 2.16.8 [id number] 1960 [facility] [id number] Social History Date Type Detail Facility Start: 12-01-2022 [facility] daily [facility] [place] History of tobacco use Cigarette Smoker B ON [facility] Start: 12-01-2022 Cigarettes smoked current (pack per day) - Reported 1 [employer] Start: 12-01-2022 Tobacco use and exposure Smoke less tobacco non-user [facility] [place] Start: 12-01-2022 End: 01-19-2023 Alcohol intake Lifetime non-drinker (finding) [employer] Start: 10-23-2018 History SDOH Alcohol Frequency 1 [facility] [place] Start: 1960 Sex Assigned At Not on file B ON [facility] Medical Equipment Procedure Code Equipment Code Equipment Origin al Text Equipment Identifier Dates Lens Intraocular Bcnvx 22+ Diopt 6x12.5 Mm Acryl Envista - [id number] Start: 12-01-2022 Lens Intraocular Bcnvx 22+ Diopt 6x12.5 Mm Acryl [employer]ista - [id number] Start: 01-19-2023 History of Present illness [...] the healing period. The office number is [phone]. Take surgery bag and all eye drops to Dr. Scherer's office tomorrow at 9:50am. You may resume your normal diet. Start your eye drops tomorrow after your post-op appointment: Ofloxacin/Polytrim one drop to the operated eye 4 times daily Prednisolone one drop to the operated eye 4 times daily documented in this encounter [facility] History of Present illness Narrative 12-01-2022 Kadie [...] the end of procedure. EKG received from [facility], will have anesthesia review. Patient instructed [...] the healing period. The office number is [phone]. Take surgery bag and all eye drops to Dr. Scherer's office tomorrow at 8:50am. You may resume your normal diet. 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 documented in this encounter [facility] Evaluation note Note Date & Type Note Facility Evaluation note Diagnosis Age-related nuclear cataract of right eye- Primary Senile nuclear sclerosis documented in this encounter [facility] Summary Purpose Family History No Family History [...] and content) DATE CREATED AUTHOR 11/30/2017 [facility] DATE CREATED AUTHOR AUTHOR'S ORGANIZ ATION 01/19/2019 [facility] DATE CREATED AUTHOR AUTHOR'S ORGANIZ ATION 04/13/2021 [facility] DATE CREATED AUTHOR AUTHOR'S ORGANIZ ATION 08/26/2021 [facility] DATE CREATED AUTHOR AUTHOR'S ORGANIZ ATION 09/14/2022 [facility] DATE CREATED AUTHOR AUTHOR'S ORGANIZ ATION 01/22/2023 [facility] DATE CREATED AUTHOR AUTHOR'S ORGANIZ ATION 06/04/[address] [facility] Reason for Visit (unrecogniz ed section and content) Specialty Diagnoses / Procedures Referred By Mo garza Referred To Contact Diagnoses Age-related nuclear cataract of left eye AGE-RELATED NUCLEAR CAT 3+ NS, 1+PSC Procedures [place] XCAPSL CTRC RMVL INSJ IO LENS PROSTH W/O ECP EYE CATARACT EMULSIFICATION IOL IMPLANT Elvira Scherer, DO [address] [place] [address] [facility] [address] [place] [address] Referral ID Status Reason Start Date Expiration Date Visits Re quested Visits Authorized [id number] 1 1 Specialty Diagnoses / Procedures Referred By Mo garza Referred To Contact Diagnoses 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 [H25.811] Procedures [place] XCAP[facility] RMVL INSJ IO LENS PROSTH W/O ECP EYE CATARACT EMULSIFICATION IOL IMPLANT Elvira Scherer, DO [address] [place] [address] [facility] [address] [place] [address] Referral ID Status Reason Start Date Expiration Date Visits Re quested Visits Authorized [id number] 1 1 Scheduled Active and Recently Administ [...] minutes, starting 30 minutes prior to surgery, [facility] - enter number of doses based [...] Care Teams (unrecognized sec tion and content) Air Conditioning Unit Tester Relationship Specialty Start Date End Date Ryan Arevalo MD [address] [place] [address] PCP - General Family Medicine 10/22/18 FOR [...] BE BASED ON THE PRIMARY CLINICAL RECORDS. [employer] [facility]. provides no warranty or guarantee of the accuracy or completeness of information in this document.
[2024-03-26 08:01] LABS: Basophils Absolute Auto 0.1 10^3/uL (0.0-0.1); Basophils Percent Auto 0.8 % (0.2-2.0); Eosinophils Absolute Auto 0.3 10^3/uL (0.0-0.7); Eosinophils Percent Auto 3.3 % (0.9-7.0); Hematocrit 44.9 % (36.0-48.0); Hemoglobin 14.9 g/dL (12.0-16.0); Immature Granulocytes Abs Auto 0.02 10^3/uL (0.00-0.03); Immature Granulocytes Pct Auto 0.2 % (0.0-0.5); Lymphocytes Absolute Auto 2.4 10^3/uL (1.2-3.8); Lymphocytes Percent Auto 29.1 % (20.5-60.0); Mean Corpuscular HGB Conc 33.2 g/dL (29.9-35.2); Mean Corpuscular Hemoglobin 31.3 pg (26.7-34.0); Mean Corpuscular Volume 94.3 fL (81.0-99.0); Mean Platelet Volume 11.4 fL (9.5-13.5); Monocytes Absolute Auto 0.6 10^3/uL (0.3-0.8); Monocytes Percent Auto 7.1 % (1.7-12.0); Neutrophils Absolute Auto 4.9 10^3/uL (1.4-6.5); Neutrophils Percent Auto 59.5 % (43.0-75.0); Platelet Count 197 10^3/uL (150-450); Red Blood Count 4.76 10^6/uL (4.20-5.40); Red Cell Distribution Width 13.3 % (11.0-15.0); White Blood Count 8.3 10^3/uL (4.0-11.0)
[2024-03-26 08:12] LABS: Estimated Average Glucose 108 mg/dL; Glycohemoglobin A1C 5.4 % (4.5-6.2)
[2024-03-26 08:24] LABS: Alanine Aminotransferase 17 U/L (14-59); Albumin Globulin Ratio 1.2; Albumin Level 3.6 g/dL (3.4-5.0); Alkaline Phosphatase 78 U/L (46-116); Anion Gap 15.4; Aspartate Amino Transferase 17 U/L (15-37); BUN Creatinine Ratio 11.6; Bilirubin Total 0.6 mg/dL (0.2-1.0); Calcium 9.1 mg/dL (8.5-10.1); Carbon Dioxide 25.7 mmol/L (21.0-32.0); Chloride 107 mmol/L (98-107); Chol HDL Ratio 3.1; Cholesterol 160 mg/dL (<=200); Estimated GFR (African America 59 (>=60 mL/min/1.73m^2); Estimated GFR (Non-African Ame 49 (>=60 mL/min/1.73m^2); Free T3 2.88 pg/mL (2.18-3.98); Globulin 3.1 g/dL; Glucose 96 mg/dL (74-106); HDL Cholesterol 52 mg/dL (40-60); Potassium 4.1 mmol/L (3.5-5.1); Sodium 144 mmol/L (136-145); Thyroid Stimulating Hormone 3.405 uIU/mL (0.358-3.740); Total Protein 6.7 g/dL (6.4-8.2); Triglycerides 70 mg/dL (<=150)
== END 2024-03-26 07:47 | disposition home or self-care (01) ==
LOC: LAB 07:46
PROVIDERS: PCP Family Medicine; Visit Provider Family Medicine
DX: Z00.00 Encounter for general adult medical examination without abnormal findings (principal)
CPT/HCPCS: 36415; 80053; 80061; 83036; 84436; 84443; 84481; 85025

== ENCOUNTER 2024-04-18 07:17 | Outpatient (OUT) | payer BC, SELFPAY ==
--- OUTSIDE RECORDS SUMMARY | 2024-04-18 07:20 | XMS_ITS | CCD ---
Author Organization [facility] Care Team Providers Care Compensation Adjuster Name Role Phone KEL BUENO Unavailable Unavailable [...] DR DAVIS Admitting Unavailable HOY ., DR ADVIS Attending Unavailable HOY ., DR DAVIS Consulting Unavailable HOY ., DR DAVIS Primary Care Unavailable HOY ., DR DAVIS Admitting Unavailable HOY ., DR DAVIS Attending Unavailable HOY ., DR DAVIS Primary Care Unavailable HOY ., DR DAVIS Admitting Unavailable HOY ., DR DAVIS Attending Unavailable HOY ., DR DAVIS Consulting Unavailable SHANNON, DR MEERA Maria Consulting Unavailable BILLY, DR CORINA Nichole Consulting Unavailable Ryan Arevalo MD Primary Care Provider [phone] RYAN AREVALO Primary Care Unavailable ELVIRA [...] disease (1 source) Atherosclerotic heart disease of [place] coronary artery with unstable angina pectoris; Translations: [ATHSCL HEART DISEASE OF [place] COR ART W UNSTABLE ANG PCTRS] Onset: [...] Facility CNCOon 06-02-2023 CNCO Letter Text Normal [facility] CNPNon 06-02-2023 CNPN Telephone (CARDMN) DACIA FINLEY ([id number]) 1960 F Date Time Provider Department 06/02/23 CELIA MATOS ([facility]) CARDMN During your visit today, we recorded [...] Status:Closed by CELIA LILLY on 06/02/23 Normal [facility] FREE T3on 09-09-2022 FREE T3 3.53 pg/mlL Normal 2.18-3.98 [facility] Comment on above: Performed By: #### T 4, FT3, TSH #### [facility] [address] [place] [address] Dr. Guevara Abraham T4on 09-09-2022 T4 [Mass/Vol] 10.20 ug/dL Normal 4.80-13.90 [facility] Comment on above: Performed By: #### T 4, FT3, TSH #### [facility] [address] [place] [address] Dr. Guevara Abraham TSHon 09-09-2022 TSH 7.509 uIU/mL Critically high 0.358-3.74 0 [facility] Comment on above: Performed By: #### T 4, FT3, TSH #### [facility] [address] [place] [address] Dr. Guevara Abraham OCC BLD IMMUNO SCREENon 08-06 OCCULT BLOOD Negative Normal NEGATIVE [facility] Comment on above: Performed By: #### A NAIFA #### [facility] [address] [place] [address] Dr. Guevara Abraham CODI by IFAon 08-19-2022 Antinuclear Antibodies, IFA Negative Normal [facility] Comment on above: Result Comment: Nega tive <1:80 Borderline 1:80 Positive >1:80 ICAP nomenclature: AC-0 For more information about Hep-2 cell patterns use ANApatterns.org, the official website for the International Consensus on Antinuclear Antibody (CODI) Patterns (ICAP). Performed By: #### A NAIFA #### [facility] [address] [place] [address] Dr. Guevara Abraham ANTISTREPTOLYSIN O AB (ASO)o n 08-16-2022 Antistreptolysin O Ab 248.1 IU/mL Critically high 0.0-200.0 [facility] Comment on above: Performed By: #### A SOAB #### [facility] [address] [place] [address] Dr. Guevara Abraham C-REACTIVE PROTEINS (HS)on 0 08-16-2022 C-Reactive Protein, Cardiac 0.32 mg/L Normal 0.00-3.00 [facility] Comment on above: Result Comment: Rela tive Risk for Future Cardiovascular Event Low <1.00 Average 1.00 - 3.00 High >3.00 Performed By: #### C RPHS #### [facility] [address] [place] [address] Dr. Guevara Abraham INSULINon 08-16-2022 Insulin 11.3 uIU/mL Normal 2.6-24.9 [facility] Comment on above: Performed By: #### I NSULIN ####[facility] [address] [place], [place] [address]DrCain Abraham RHEUMATOID FACTORon 08-17-19 23 RA Latex Turbid. <10.0 Normal <14.0 [facility] Comment on above: Performed By: #### R F #### [facility] [address] [place] [address] Dr. Guevara Abraham CBC AUTO DIFFon 08-15-2022 BASO # 0.1 103/ul Normal 0.0-0.1 [facility] Comment on above: Performed By: #### C BC ####[facility] [address] [place], [place] [address]Dr. Guevara Abraham Basophils/100 WBC (Bld) 0.6 % Normal 0.2-2.0 [facility] Comment on above: Performed By: #### C BC ####[facility] [address] [place], [place] [address]DrCain Abraham EO # 0.2 103/ul Normal 0.0-0.7 [facility] Comment on above: Performed By: #### C BC ####[facility] [address] [place], [place] [address]DrCain Abraham Eosinophils/100 WBC (Bld) 1.9 % Normal 0.9-7.0 [facility] Comment on above: Performed By: #### C BC ####[facility] [address] [place], [place] [address]DrCain Abraham Erythrocyte distribution width (RBC) [Ratio] 12.8 % Normal 11.0-15.0 [facility] Comment on above: Performed By: #### C BC ####[facility] [address] [place] [address]Dr. Zabrinameño Abraham Hematocrit (Bld) [Volume fraction] 43.1 % Normal 36.0-48.0 [facility] Comment on above: Performed By: #### C BC ####[facility] [address] [place] [address]Dr. Guevara Abraham Hemoglobin (Bld) [Mass/Vol] 14.5 g/dL Normal 12.0-16.0 [facility] Comment on above: Performed By: #### C BC ####[facility] [address] [place], [place] [address]Dr. Guevara Abraham IG # 0.03 10e3/ul Normal 0.00-0.03 [facility] Comment on above: Performed By: #### C BC ####[facility] [address]el[address] [place], [place] [address]Dr. Guevara Abraham IG % 0.3 % Normal 0.0-0.5 [facility] Comment on above: Performed By: #### C BC ####[facility] [address] [place], [place] [address]Dr. Guevara Abraham LYMPH # 3.3 103/ul Normal 1.2-3.8 [facility] Comment on above: Performed By: #### C BC ####[facility] [address]so[address] [place], [place] [address]Dr. Guevara Abraham Lymphocytes/100 WBC (Bld) 34.2 % Normal 20.5-60.0 [facility] Comment on above: Performed By: #### C BC ####[facility] [address] [place] [address]Dr. Guevara Abraham MANUAL DIFF REQ NO Normal [facility] Comment on above: Performed By: #### C BC ####[facility] [address] [place], [place] [address]DrCain Abraham MCH (RBC) [Entitic mass] 31.4 pg Normal 26.7-34.0 [facility] Comment on above: Performed By: #### C BC ####[facility] [address]fs[address] [place], [place] [address]Dr. Guevara Abraham MCHC (RBC) [Mass/Vol] 33.6 g/dL Normal 29.9-35.2 [facility] Comment on above: Performed By: #### C BC ####[facility] [address] [place] [id number]. Guevara Abraham MCV (RBC) [Entitic vol] 93.3 fL Normal 81.0-99.0 [facility] Comment on above: Performed By: #### C BC ####[facility] G[address]xw[address] [place], [place] [address]Dr. Guevara Abraham MONO # 0.7 103/ul Normal 0.3-0.8 [facility] Comment on above: Performed By: #### C BC ####[facility] Weft[address]ucby[address] [place], [place] [address]Dr. Guevara Abraham Monocytes/100 WBC (Bld) 7.3 % Normal 1.7-12.0 [facility] Comment on above: Performed By: #### C BC ####[facility] [address] [place], [place] [address]Dr. Guevara Abraham NEUT # 5.3 103/ul Normal 1.4-6.5 [facility] Comment on above: Performed By: #### C BC ####[facility] [address] [place], [place] [address]Dr. Guevara Abraham Neutrophils/100 WBC (Bld) 55.7 % Normal 43.0-75.0 [facility] Comment on above: Performed By: #### C BC ####[facility] [address] [place], [place] [address]Dr. Guevara Abraham Platelet mean volume (Bld) [Entitic vol] 11.5 fL Normal 9.5-13.5 [facility] Comment on above: Performed By: #### C BC ####[facility] M[address]xay[address] [place], [place] [address]Dr. Guevara Abraham PLT 211 103/ul Normal 150-450 [facility] Comment on above: Performed By: #### C BC ####[facility] [address]uz[address] [place], [place] [address]Dr. Guevara Abraham RBC 4.62 106/ul Normal 4.20-5.40 [facility] Comment on above: Performed By: #### C BC ####[facility] [address] [place], [place] [address]Qi. Guevara Abraham WBC 9.5 103/ul Normal 4.0-11.0 [facility] Comment on above: Performed By: #### C BC ####[facility] [address] [place] [id number]. Guevara Abraham CRPon 08-15-2022 CRP [Mass/Vol] mg/L Normal <=1.0 [facility] Comment on above: Performed By: #### C RP, T7, CMP, URIC, LIPID, TSH ####[facility] [address] [place], [place] [address]Dz. Gue[address] CT LUNG CANCER SCREENINGon 0 [...] Date: 2022-08-15 09:25 Normal [facility] FREE THYROXINE INDEX T7on FTI 3.00 Normal 1.30-4.50 [facility] Comment on above: Performed By: #### C RP, T7, CMP, URIC, LIPID, TSH ####[facility] [address] [place] [id number]. Guevara Abraham T3U 33.0 % Normal 30.0-39.0 [facility] Comment on above: Performed By: #### C RP, T7, CMP, URIC, LIPID, TSH ####[facility] [address] [place] [id number]. Guevara Abraham T4 [Mass/Vol] 9.10 ug/dL Normal 4.80-13.90 [facility] Comment on above: Performed By: #### C RP, T7, CMP, URIC, LIPID, TSH ####[facility] [address] [place] [address]DrCain Abraham GLYCOHEMOGLOBIN A1Con 2022 ADA RECOMMENDATION SEE BELOW Normal [facility] Comment on above: Result Comment: ADA RECOMMENDED LIMIT 4.0 - 6.0 ADA THERAPEUTIC TARGET < 7.0 ACTION SUGGESTED > 7.0 Performed By: #### A 1C ####[facility] [address] [place] [address]Dr. Guevara Abraham Glucose [Mass/Vol] 120 mg/dL Normal [facility] Comment on above: Performed By: #### A 1C ####[facility] [address] [place] [address]Dr. Guevara Abraham HbA1c (Bld) [Mass fraction] 5.8 % Normal 4.5-6.2 [facility] Comment on above: Performed By: #### A 1C ####[facility] [address] [place] [address]DrCain Abraham IRONon 08-15-2022 Iron [Mass/Vol] 124.0 ug/dL Normal 50.0-170.0 [facility] Comment on above: Performed By: #### I MIAH #### [facility] [address] [place] [address] [address] Guevara Abraham LIPID PROFILEon 08-15-2022 CHOL-HDL RATIO NORM SEE BELOW Normal [facility] Comment on above: Result Comment: 3.3 - 4.4 LOW RISK 4.4 - 7.1 AVERAGE RISK 7.1 - 11.0 MODERATE RISK >11.0 HIGH RISK Performed By: #### C RP, T7, CMP, URIC, LIPID, TSH ####[facility] [address] [place] [address]Dr. Guevara Abraham Cholesterol [Mass/Vol] 132 mg/dL Normal <=200 [facility] Comment on above: Performed By: #### C RP, T7, CMP, URIC, LIPID, TSH ####[facility] [address] [place] [address]Dr. Guevara Abraham Cholesterol in HDL [Mass/Vol] 44 mg/dL Normal 40-60 [facility] Comment on above: Performed By: #### C RP, T7, CMP, URIC, LIPID, TSH ####[facility] [address] [place] [address]Dr. Guevara Abraham Cholesterol in LDL [Mass/Vol] 70.8 mg/dL Normal [facility] Comment on above: Performed By: #### C RP, T7, CMP, URIC, LIPID, TSH ####[facility] [address] [place] [address]Dr. Guevara Abraham Cholesterol.total /Cholesterol in HDL [Mass ratio] 3.0 {ratio} Normal [facility] Comment on above: Performed By: #### C RP, T7, CMP, URIC, LIPID, TSH ####[facility] [address] [place] [address]Dr. Guevara Abraham HDL NORMAL > or = 60 mg/dl - LO W CARDIOVASCULAR RISK <40 mg/dl - HIGH CARDIOVASCULAR RISK Normal [facility] Comment on above: Performed By: #### C RP, T7, CMP, URIC, LIPID, TSH ####[facility] [address] [place] [address]Dr. Guevara Abraham LDL CALC NORMAL SEE BELOW Normal [facility] Comment on above: Result Comment: <100 mg/dl OPTIMAL 100 - 129 mg/dl NEAR OR ABOVE OPTIMAL 130 - 159 mg/dl BORDERLINE HIGH 160 - 189 mg/dl HIGH >190 mg/dl VERY HIGH Performed By: #### C RP, T7, CMP, URIC, LIPID, TSH ####[facility] [address] [place], [place] [address]Nt. Guevara Abraham Triglyceride [Mass/Vol] 86 mg/dL Normal <=150 [facility] Comment on above: Performed By: #### C RP, T7, CMP, URIC, LIPID, TSH ####[facility] [address] [place], [place] [address]Eo. Guevara Abraham VLDL CALC 17.2 mg/dL Normal [facility] Comment on above: Performed By: #### C RP, T7, CMP, URIC, LIPID, TSH ####[facility] [address] [place], [place] [address]Fg. Guevara Abraham MG MAMM SCREEN 3D GRICEL CADon 08-15-2022 MG MAMM SCREEN 3D GRICEL CAD Patient: DACIA FINLEY Exam Date: 08/15/2022 : 1960 Gender:F Ordering : DR RYAN AREVALO . Admission #: [id number] Family : Order #: [id number] CLICK HERE TO VIEW EXAM RADIOLOGY REPORT PROCEDURE: MAMMOGRAM SCREENING 3D BILATERAL CAD COMPARISON: MG MAMM GRICEL SCRN W CAD DIG, 07/04/2015. INDICATIONS: Screening mammography Calculator Name NCI Breast Cancer Risk Assessment Tool 5 Year Breast Cancer Risk Not Reported. Lifetime Breast Cancer Risk Not Reported. Personal Breast Cancer No Personal Ovarian Cancer No Treatments None Family Cancers None LOCATION: [facility] BREAST COMPOSITION: Extremely dense, which lowers the [...] 08/15/2022 at 09:49 Normal [facility] PROF 14(COMP METB)on 023 Albumin [Mass/Vol] 3.9 g/dL Normal 3.4-5.0 [facility] Comment on above: Performed By: #### C RP, T7, CMP, URIC, LIPID, TSH ####[facility] [address] [place] [address]Dr. Guevara Abraham Albumin/Globulin [Mass ratio] 1.2 {ratio} Normal [facility] Comment on above: Performed By: #### C RP, T7, CMP, URIC, LIPID, TSH ####[facility] [address] [place] [address]Dr. Guevara Abraham ALP [Catalytic activity/Vol] 66 U/L Normal 46-116 [facility] Comment on above: Performed By: #### C RP, T7, CMP, URIC, LIPID, TSH ####[facility] [address] [place] [address]Dr. Guevara Abraham ALT [Catalytic activity/Vol] 22 U/L Normal 14-59 [facility] Comment on above: Performed By: #### C RP, T7, CMP, URIC, LIPID, TSH ####[facility] [address] [place] [address]Dr. Guevara Abraham Anion gap [Moles/Vol] 12.9 mmol/L Normal [facility] Comment on above: Performed By: #### C RP, T7, CMP, URIC, LIPID, TSH ####[facility] [address] [place] [address]Dr. Guevara Abraham AST [Catalytic activity/Vol] 14 U/L Critically low 15-37 [facility] Comment on above: Performed By: #### C RP, T7, CMP, URIC, LIPID, TSH ####[facility] [address] [place] [address]Dr. Guevara Abraham Bilirubin [Mass/Vol] 0.4 mg/dL Normal 0.2-1.0 [facility] Comment on above: Performed By: #### C RP, T7, CMP, URIC, LIPID, TSH ####[facility] [address] [place] [address]Dr. Guevara Abraham Calcium [Mass/Vol] 8.8 mg/dL Normal 8.5-10.1 [facility] Comment on above: Performed By: #### C RP, T7, CMP, URIC, LIPID, TSH ####[facility] [address] [place] [address]Dr. Guevara Abraham Chloride [Moles/Vol] 107 mmol/L Normal 98-107 [facility] Comment on above: Performed By: #### C RP, T7, CMP, URIC, LIPID, TSH ####[facility] [address]cl[address] [place] [address]Dr. Guevara Abraham CO2 [Moles/Vol] 26.8 mmol/L Normal 21.0-32.0 [facility] Comment on above: Performed By: #### C RP, T7, CMP, URIC, LIPID, TSH ####[facility] [address] [place] [address]Dr. Guevara Abraham Creatinine [Mass/Vol] 0.85 mg/dL Normal 0.55-1.02 [facility] Comment on above: Performed By: #### C RP, T7, CMP, URIC, LIPID, TSH ####[facility] [address] [place] [address]Dr. Guevara Abraham EGFR-AF AZERBAIJANI >60 Normal >=60 [facility] Comment on above: Performed By: #### C RP, T7, CMP, URIC, LIPID, TSH ####[facility] [address] [place] [address]Dr. Guevara Abraham EGFR-NON AF AZERBAIJANI >60 Normal >=60 [facility] Comment on above: Performed By: #### C RP, T7, CMP, URIC, LIPID, TSH ####[facility] [address] [place] [address]Dr. Guevara Abraham Globulin (S) [Mass/Vol] 3.2 g/dL Normal [facility] Comment on above: Performed By: #### C RP, T7, CMP, URIC, LIPID, TSH ####[facility] [address] [place] [address]Dr. Guevara Abraham Glucose [Mass/Vol] 96 mg/dL Normal 74-106 [facility] Comment on above: Performed By: #### C RP, T7, CMP, URIC, LIPID, TSH ####[facility] [address] [place] [address]Dr. Guevara Abraham Potassium [Moles/Vol] 3.7 mmol/L Normal 3.5-5.1 [facility] Comment on above: Performed By: #### C RP, T7, CMP, URIC, LIPID, TSH ####[facility] [address]nuy[address] [place] [address]Dr. Guevara Abraham Protein [Mass/Vol] 7.1 g/dL Normal 6.4-8.2 [facility] Comment on above: Performed By: #### C RP, T7, CMP, URIC, LIPID, TSH ####[facility] [address] [place] [address]Dr. Guevara Abraham Sodium [Moles/Vol] 143 mmol/L Normal 136-145 [facility] Comment on above: Performed By: #### C RP, T7, CMP, URIC, LIPID, TSH ####[facility] [address] [place] [address]Dr. Guevara Abraham Urea nitrogen [Mass/Vol] 13.0 mg/dL Normal 7.0-18.0 [facility] Comment on above: Performed By: #### C RP, T7, CMP, URIC, LIPID, TSH ####[facility] [address] [place] [address]Dr. Guevara Abraham Urea nitrogen/Creatini ne [Mass ratio] 15.3 mg/mg Normal [facility] Comment on above: Performed By: #### C RP, T7, CMP, URIC, LIPID, TSH ####[facility] [address] [place] [address]Dr. Guevara Abraham TSHon 08-15-2022 TSH 5.411 uIU/mL Critically high 0.358-3.74 0 [facility] Comment on above: Performed By: #### C RP, T7, CMP, URIC, LIPID, TSH ####[facility] [address] [place] [address]Dr. Guevara Abraham URIC ACID SERUMon 08-15-2022 Urate [Mass/Vol] 3.1 mg/dL Normal 2.6-6.0 [facility] Comment on above: Performed By: #### C RP, T7, CMP, URIC, LIPID, TSH ####[facility] [address] [place], [place] [address]NcCain Abraham XR DEXA BONE DENSITYon 08-15 XR [...] Date: 2022-08-15 09:00 Normal [facility] XR LSPINE MIN 4 VIEWSon 08-06 XR [...] Date: 2022-08-15 09:04 Normal [facility] MR head/brain wo conon 07-19 MR head/brain wo con [facility] [place] [address] MRI Report Signed Patient: Dacia Finley MR#: [id number] : 1960 Acct:[id number] Age/Sex: 60 / F ADM Date: 07/19/21 Loc: [facility] Room: Type: [facility] Attending Dr: Himanshu Acosta DO Ordering Provider: [...] Jack Giles M.D.07/19/2021 1:11 PM Dictation Location: [place] [address] Transcribed By: [facility] 07/19/21 1311 Dictated By: Jack Giles II, MD 07/19/21 1302 Signed By: 07/19/21 1311 Normal [facility] Physician Referralon 021 Physician Referral [id number] Normal [facility] Basic Metabolic Profon 10-26 (cont.) Normal [facility] Comment on above: Result Comment: Aver age GFR for 50-59 years old: 93 mL/min/1.73sq m Chronic Kidney Disease: <60 mL/min/1.73sq m Kidney failure: <15 mL/min/1.73sq m eGFR calculated using average adult body mass. Additional eGFR calculator available at: http://www.HALKAR.CertiVox/multiple_crcl_2012.htm Performed By: #### C DP, BMP, CRP, PRCAL #### [facility] [address] [place] [address] Concrete Boom Operator: Sabas Lamb MD Anion gap [Moles/Vol] 9 mmol/L Normal 9-17 [facility] Comment on above: Performed By: #### C DP, BMP, CRP, PRCAL #### [facility] [employer] [address] [place] [address] Concrete Boom Operator: Sabas Lamb MD Calcium [Mass/Vol] 8.3 mg/dL Low 8.6-10.4 [facility] Comment on above: Performed By: #### C DP, BMP, CRP, PRCAL #### [facility] [address] [place] [address] Concrete Boom Operator: Sabas Lamb MD Chloride [Moles/Vol] 100 mmol/L Normal 98-107 [facility] Comment on above: Performed By: #### C DP, BMP, CRP, PRCAL #### [facility] [address] [place] [address] Concrete Boom Operator: Sabas Lamb MD CO2 [Moles/Vol] 26 mmol/L Normal 20-31 [facility] Comment on above: Performed By: #### C DP, BMP, CRP, PRCAL #### [employer] [address] [place] [address] Concrete Boom Operator: Sabas Lamb MD Creatinine [Mass/Vol] 0.26 mg/dL Low 0.50-0.90 [facility] Comment on above: Performed By: #### C DP, BMP, CRP, PRCAL #### [address] [address] Concrete Boom Operator: Sabas Lamb MD GFR, Amer >60 Normal >60 [facility] Comment on above: Performed By: #### C DP, BMP, CRP, PRCAL #### [facility] [employer] [address] [place] [address] Concrete Boom Operator: Sabas Lamb MD GFR,non Amer >60 Normal >60 [facility] Comment on above: Performed By: #### C DP, BMP, CRP, PRCAL #### [facility] [employer] [address] [place] [address] Concrete Boom Operator: Sabas Lamb MD Glucose [Mass/Vol] 112 mg/dL High 70-99 [facility] Comment on above: Performed By: #### C DP, BMP, CRP, PRCAL #### [address] [address] Concrete Boom Operator: Sabas Lamb MD Potassium [Moles/Vol] 3.1 mmol/L Low 3.7-5.3 [facility] Comment on above: Performed By: #### C DP, BMP, CRP, PRCAL #### [facility] [employer] [address] [place] [address] Concrete Boom Operator: Sabas Lamb MD Sodium [Moles/Vol] 135 mmol/L Normal 135-144 [facility] Comment on above: Performed By: #### C DP, BMP, CRP, PRCAL #### [facility] [employer] [address] [place] [address] Concrete Boom Operator: Sabas Lamb MD Urea nitrogen [Mass/Vol] 6 mg/dL Normal 6-20 [facility] Comment on above: Performed By: #### C DP, BMP, CRP, PRCAL #### [facility] [employer] [address] [place] [address] Concrete Boom Operator: Sabas Lamb MD BUN/CRE Ratio NOT REPORTED Normal 9-20 [facility] Comment on above: Performed By: #### C DP, BMP, CRP, PRCAL #### [address] [address] Concrete Boom Operator: Sabas Lamb MD Staging: NOT REPORTED Normal [facility] Comment on above: Performed By: #### C DP, BMP, CRP, PRCAL #### [place] [address] Concrete Boom Operator: Sabas Labm MD CBC with Diffon 10-26-2018 Abs. Basophil <0.03 Normal 0.00-0.20 [facility] Comment on above: Performed By: #### C DP, BMP, CRP, PRCAL #### [place] [address] [employer]: Sabas Lamb MD Abs.Imm.Granulocy te 0.03 k/uL Normal 0.00-0.30 [facility] Comment on above: Performed By: #### C DP, BMP, CRP, PRCAL #### [place] [address] [employer]: Sabas Lamb MD Abs.Neutrophil (Seg) 7.04 k/uL Normal 1.50-8.10 [facility] Comment on above: Performed By: #### C DP, BMP, CRP, PRCAL #### [place] [address] [employer]: Sabas Lamb MD Basophils/100 WBC (Bld) 0 % Normal 0-2 [facility] Comment on above: Performed By: #### C DP, BMP, CRP, PRCAL #### [address] [address] [employer]: Sabas Lamb MD Eosinophils (Bld) [#/Vol] 0.08 10*3/uL Normal 0.00-0.44 [facility] Comment on above: Performed By: #### C DP, BMP, CRP, PRCAL #### [address] [address] [employer]: Sabas Lamb MD Eosinophils/100 WBC (Bld) 1 % Normal 1-4 [facility] Comment on above: Performed By: #### C DP, BMP, CRP, PRCAL #### [place] [address] [employer]: Sabas aLmb MD Erythrocyte distribution width (RBC) [Ratio] 12.0 % Normal 11.8-14.4 [facility] Comment on above: Performed By: #### C DP, BMP, CRP, PRCAL #### [place] [address] [employer]: Sbaas Lamb MD Hematocrit (Bld) [Volume fraction] 32.3 % Low 36.3-47.1 [facility] Comment on above: Performed By: #### C DP, BMP, CRP, PRCAL #### [place] [address] [employer]: Sabas Lamb MD Hemoglobin (Bld) [Mass/Vol] 10.5 g/dL Low 11.9-15.1 [facility] Comment on above: Performed By: #### C DP, BMP, CRP, PRCAL #### [facility] [address] [place] [address] [employer]: Sabas Lamb MD Immature granulocytes (Bld) [#/Vol] 0 % Normal 0 [facility] Comment on above: Performed By: #### C DP, BMP, CRP, PRCAL #### [facility] [address] [place] [address] [employer]: Sabas Lamb MD Lymphocytes (Bld) [#/Vol] 1.45 10*3/uL Normal 1.10-3.70 [facility] Comment on above: Performed By: #### C DP, BMP, CRP, PRCAL #### [address] [address] [employer]: Sabas Lamb MD Lymphocytes/100 WBC (Bld) 16 % Low 24-43 [facility] Comment on above: Performed By: #### C DP, BMP, CRP, PRCAL #### [place] [address] [employer]: Sabas Lamb MD MCH (RBC) [Entitic mass] 31.3 pg Normal 25.2-33.5 [facility] Comment on above: Performed By: #### C DP, BMP, CRP, PRCAL #### [place] [address] [employer]: Sabas Lamb MD MCHC (RBC) [Mass/Vol] 32.5 g/dL Normal 28.4-34.8 [facility] Comment on above: Performed By: #### C DP, BMP, CRP, PRCAL #### [address] [address] [employer]: Sabas Lamb MD MCV (RBC) [Entitic vol] 96.1 fL Normal 82.6-102.9 [facility] Comment on above: Performed By: #### C DP, BMP, CRP, PRCAL #### [place] [address] [employer]: Sabas Lamb MD Monocytes (Bld) [#/Vol] 0.54 10*3/uL Normal 0.10-1.20 [facility] Comment on above: Performed By: #### C DP, BMP, CRP, PRCAL #### [address] [address] [employer]: Sabas Lamb MD Monocytes/100 WBC (Bld) 6 % Normal 3-12 [facility] Comment on above: Performed By: #### C DP, BMP, CRP, PRCAL #### [address] [address] [employer]: Sabas Lamb MD Neutrophil (Seg) 77 % High 36-65 [facility] Comment on above: Performed By: #### C DP, BMP, CRP, PRCAL #### [address] [address] [employer]: Sabas Lamb MD NRBC Automated 0.0 per 100 WBC Normal 0.0 [facility] Comment on above: Performed By: #### C DP, BMP, CRP, PRCAL #### [address] [address] [employer]: Sabas Lamb MD Platelet mean volume (Bld) [Entitic vol] 11.7 fL Normal 8.1-13.5 [facility] Comment on above: Performed By: #### C DP, BMP, CRP, PRCAL #### [address] [address] [employer]: Sabas Lamb MD Platelets (Bld) [#/Vol] 261 10*3/uL Normal 138-453 [facility] Comment on above: Performed By: #### C DP, BMP, CRP, PRCAL #### [address] [address] [employer]: Sabas Lamb MD RBC (Bld) [#/Vol] 3.36 10*6/uL Low 3.95-5.11 [facility] Comment on above: Performed By: #### C DP, BMP, CRP, PRCAL #### [address] [address] [employer]: Sabas Lamb MD WBC (Bld) [#/Vol] 9.2 10*3/uL Normal 3.5-11.3 [facility] Comment on above: Performed By: #### C DP, BMP, CRP, PRCAL #### [address] [address] [employer]: Sabas Lamb MD Auto Diff Performed NOT REPORTED Normal [facility] Comment on above: Performed By: #### C DP, BMP, CRP, PRCAL #### [address] [address] [employer]: Sabas Lamb MD Platelets (Bld) [#/Vol] NOT REPORTED Normal [facility] Comment on above: Performed By: #### C DP, BMP, CRP, PRCAL #### [address] [address] [employer]: Sabas Lamb MD RBC morphology finding Nom (Bld) NOT REPORTED Normal [facility] Comment on above: Performed By: #### C DP, BMP, CRP, PRCAL #### [address] [address] [employer]: Sabas Lamb MD WBC Morphology NOT REPORTED Normal [facility] Comment on above: Performed By: #### C DP, BMP, CRP, PRCAL #### [address] [address] [employer]: Sabas Lamb MD Basic Metabolic Profon 10-25 (cont.) Normal [facility] Comment on above: Result Comment: Aver age GFR for 50-59 years old: 93 mL/min/1.73sq m Chronic Kidney Disease: <60 mL/min/1.73sq m Kidney failure: <15 mL/min/1.73sq m eGFR calculated using average adult body mass. Additional eGFR calculator available at: http://www.HALKAR.[employer]iVox/multiple_crcl_2011.htm Performed By: #### C DP, BMP, CRP, PRCAL #### [facility] [address] [place] [address] [employer]: Sabas Lamb MD Anion gap [Moles/Vol] 9 mmol/L Normal 9-17 [facility] Comment on above: Performed By: #### C DP, BMP, CRP, PRCAL #### [address] [address] [employer]: Sabas Labm MD Calcium [Mass/Vol] 8.5 mg/dL Low 8.6-10.4 [facility] Comment on above: Performed By: #### C DP, BMP, CRP, PRCAL #### [address] [address] [employer]: Sabas Lamb MD Chloride [Moles/Vol] 100 mmol/L Normal 98-107 [facility] Comment on above: Performed By: #### C DP, BMP, CRP, PRCAL #### [facility] [address] [place] [address] [employer]: Sabas Lamb MD CO2 [Moles/Vol] 28 mmol/L Normal 20-31 [facility] Comment on above: Performed By: #### C DP, BMP, CRP, PRCAL #### [facility] [address] [place] [address] [employer]: Sabas Lamb MD Creatinine [Mass/Vol] 0.31 mg/dL Low 0.50-0.90 [facility] Comment on above: Performed By: #### C DP, BMP, CRP, PRCAL #### [facility] [address] [place] [address] [employer]: Sabas Lamb MD GFR, Amer >60 Normal >60 [facility] Comment on above: Performed By: #### C DP, BMP, CRP, PRCAL #### [facility] [address] [place] [address] [employer]: Sabas Lamb MD GFR,non Amer >60 Normal >60 [facility] Comment on above: Performed By: #### C DP, BMP, CRP, PRCAL #### [address] [address] [employer]: Sabas Lamb MD Glucose [Mass/Vol] 111 mg/dL High 70-99 [facility] Comment on above: Performed By: #### C DP, BMP, CRP, PRCAL #### [address] [address] [employer]: Sabas Lamb MD Potassium [Moles/Vol] 3.4 mmol/L Low 3.7-5.3 [facility] Comment on above: Performed By: #### C DP, BMP, CRP, PRCAL #### [address] [address] [employer]: Sabas Lamb MD Sodium [Moles/Vol] 137 mmol/L Normal 135-144 [facility] Comment on above: Performed By: #### C DP, BMP, CRP, PRCAL #### [facility] [address] [place] [address] [employer]: Sabas Lamb MD Urea nitrogen [Mass/Vol] 9 mg/dL Normal 6-20 [facility] Comment on above: Performed By: #### C DP, BMP, CRP, PRCAL #### [facility] [address] [place] [address] [employer]: Sabas Lamb MD BUN/CRE Ratio NOT REPORTED Normal -20 [facility] Comment on above: Performed By: #### C DP, BMP, CRP, PRCAL #### [facility] [address] [place] [address] [employer]: Sabas Lamb MD Staging: NOT REPORTED Normal [facility] Comment on above: Performed By: #### C DP, BMP, CRP, PRCAL #### [place] [address] [employer]: Sabas Lamb MD CBC with Diffon 10-25-2018 Abs. Basophil 0.03 k/uL Normal 0.00-0.20 [facility] Comment on above: Performed By: #### C DP, BMP, CRP, PRCAL #### [place] [address] [employer]: Sabas Lamb MD Abs.Imm.Granulocy te 0.05 k/uL Normal 0.00-0.30 [facility] Comment on above: Performed By: #### C DP, BMP, CRP, PRCAL #### [place] [address] [employer]: Sabas Lamb MD Abs.Neutrophil (Seg) 10.20 k/uL High 1.50-8.10 [facility] Comment on above: Performed By: #### C DP, BMP, CRP, PRCAL #### [place] [address] [employer]: Sabas Lamb MD Basophils/100 WBC (Bld) 0 % Normal 0-2 [facility] Comment on above: Performed By: #### C DP, BMP, CRP, PRCAL #### [place] [address] [employer]: Sabas Lamb MD Eosinophils (Bld) [#/Vol] 0.04 10*3/uL Normal 0.00-0.44 [facility] Comment on above: Performed By: #### C DP, BMP, CRP, PRCAL #### [place] [address] [employer]: Sabas Lamb MD Eosinophils/100 WBC (Bld) 0 % Low 1-4 [facility] Comment on above: Performed By: #### C DP, BMP, CRP, PRCAL #### [address] [address] [employer]: Sabas Lamb MD Erythrocyte distribution width (RBC) [Ratio] 11.9 % Normal 11.8-14.4 [facility] Comment on above: Performed By: #### C DP, BMP, CRP, PRCAL #### [place] [address] [employer]: Sabas Labm MD Hematocrit (Bld) [Volume fraction] 31.5 % Low 36.3-47.1 [facility] Comment on above: Performed By: #### C DP, BMP, CRP, PRCAL #### [place] [address] [employer]: Sabas Lamb MD Hemoglobin (Bld) [Mass/Vol] 10.4 g/dL Low 11.9-15.1 [facility] Comment on above: Performed By: #### C DP, BMP, CRP, PRCAL #### [address] [address] [employer]: Sabas Lamb MD Immature granulocytes (Bld) [#/Vol] 0 % Normal 0 [facility] Comment on above: Performed By: #### C DP, BMP, CRP, PRCAL #### [address] [address] [employer]: Sabas Lamb MD Lymphocytes (Bld) [#/Vol] 0.96 10*3/uL Low 1.10-3.70 [facility] Comment on above: Performed By: #### C DP, BMP, CRP, PRCAL #### [address] [address] [employer]: Sabas Lamb MD Lymphocytes/100 WBC (Bld) 8 % Low 24-43 [facility] Comment on above: Performed By: #### C DP, BMP, CRP, PRCAL #### [address] [address] [employer]: Sabas Lamb MD MCH (RBC) [Entitic mass] 31.9 pg Normal 25.2-33.5 [facility] Comment on above: Performed By: #### C DP, BMP, CRP, PRCAL #### [address] [address] [employer]: Sabas Lamb MD MCHC (RBC) [Mass/Vol] 33.0 g/dL Normal 28.4-34.8 [facility] Comment on above: Performed By: #### C DP, BMP, CRP, PRCAL #### [address] [address] [employer]: Sabas Lamb MD MCV (RBC) [Entitic vol] 96.6 fL Normal 82.6-102.9 [facility] Comment on above: Performed By: #### C DP, BMP, CRP, PRCAL #### [address] [address] [employer]: Sabas Lamb MD Monocytes (Bld) [#/Vol] 0.75 10*3/uL Normal 0.10-1.20 [facility] Comment on above: Performed By: #### C DP, BMP, CRP, PRCAL #### [address] [address] [employer]: Sabas Lamb MD Monocytes/100 WBC (Bld) 6 % Normal 3-12 [facility] Comment on above: Performed By: #### C DP, BMP, CRP, PRCAL #### [address] [address] [employer]: Sabas Lamb MD Neutrophil (Seg) 86 % High 36-65 [facility] Comment on above: Performed By: #### C DP, BMP, CRP, PRCAL #### [address] [address] [employer]: Sabas Lamb MD NRBC Automated 0.0 per 100 WBC Normal 0.0 [facility] Comment on above: Performed By: #### C DP, BMP, CRP, PRCAL #### [address] [address] [employer]: Sabas Lamb MD Platelet mean volume (Bld) [Entitic vol] 11.4 fL Normal 8.1-13.5 [facility] Comment on above: Performed By: #### C DP, BMP, CRP, PRCAL #### [address] [address] [employer]: Sabas Lamb MD Platelets (Bld) [#/Vol] 238 10*3/uL Normal 138-453 [facility] Comment on above: Performed By: #### C DP, BMP, CRP, PRCAL #### [address] [address] [employer]: Sabas Lamb MD RBC (Bld) [#/Vol] 3.26 10*6/uL Low 3.95-5.11 [facility] Comment on above: Performed By: #### C DP, BMP, CRP, PRCAL #### [address] [address] [employer]: Sabas Lamb MD WBC (Bld) [#/Vol] 12.0 10*3/uL High 3.5-11.3 [facility] Comment on above: Performed By: #### C DP, BMP, CRP, PRCAL #### [address] [address] [employer]: Sabas Lamb MD Auto Diff Performed NOT REPORTED Normal [facility] Comment on above: Performed By: #### C DP, BMP, CRP, PRCAL #### [facility] [address] [place] [address] [employer]: Sabas Lamb MD Platelets (Bld) [#/Vol] NOT REPORTED Normal [facility] Comment on above: Performed By: #### C DP, BMP, CRP, PRCAL #### [facility] [address] [place] [address] [employer]: Sabas Lamb MD RBC morphology finding Nom (Bld) NOT REPORTED Normal [facility] Comment on above: Performed By: #### C DP, BMP, CRP, PRCAL #### [facility] [address] [place] [address] [employer]: Sabas Lamb MD WBC Morphology NOT REPORTED Normal [facility] Comment on above: Performed By: #### C DP, BMP, CRP, PRCAL #### [facility] [address] [place] [address] [employer]: Sabas Lamb MD Lipid Profileon 10-25-2018 Cholesterol [Mass/Vol] 114 mg/dL Normal <200 [facility] Comment on above: Result Comment: Cholesterol Guidelines: <200 Desirable 200-240 Borderline >240 Undesirable Performed By: #### C DP, BMP, CRP, PRCAL #### [address] [address] [employer]: Sabas Lamb MD Cholesterol in HDL [Mass/Vol] 37 mg/dL Low >40 [facility] Comment on above: Result Comment: HDL Guidelines: <40 Undesirable 40-59 Borderline >59 Desirable Performed By: #### C DP, BMP, CRP, PRCAL #### [address] [address] [employer]: Sabas Lamb MD Cholesterol in LDL [Mass/Vol] 63 mg/dL Normal 0-130 [facility] Comment on above: Result Comment: LDL Guidelines: <100 Desirable 100-129 Near to/above Desirable 130-159 Borderline >159 Undesirable Direct (measured) LDL and calculated LDL are not interchangeable tests. Performed By: #### C DP, BMP, CRP, PRCAL #### [facility] [address] [place] [address] [employer]: Sabas Lamb MD Cholesterol.total /Cholesterol in HDL [Mass ratio] 3.1 {ratio} Normal <5 [facility] Comment on above: Performed By: #### C DP, BMP, CRP, PRCAL #### [facility] [address] [place] [address] [employer]: Sabas Lamb MD Triglyceride [Mass/Vol] 71 mg/dL Normal <150 [facility] Comment on above: Result Comment: Triglyceride Guidelines: <150 Desirable 150-199 Borderline 200-499 High >499 Very high Based on AHA Guidelines for fasting triglyceride, March 2012. Performed By: #### C DP, BMP, CRP, PRCAL #### [facility] [address] [place] [address] [employer]: Sabas Lamb MD Cholesterol in VLDL [Mass/Vol] NOT REPORTED Normal 1-30 [facility] Comment on above: Performed By: #### C DP, BMP, CRP, PRCAL #### [facility] [address] [place] [address] [employer]: Sabas Lamb MD Specimen Rejectionon 019 ----- NOT REPORTED Normal [facility] Comment on above: Performed By: #### C DP, BMP, CRP, PRCAL #### [facility] [address] [place] [address] [employer]: Sabas Lamb MD Reason for rejection Unable to perform testing: Specimen mislabeled. Normal [facility] Comment on above: Performed By: #### C DP, BMP, CRP, PRCAL #### [address] [address] [employer]: Sabas Lamb MD Source of sample .BLOOD Normal [facility] Comment on above: Performed By: #### C DP, BMP, CRP, PRCAL #### [address] [address] [employer]: Sabas Lamb MD Test ordered BMP CDP Normal [facility] Comment on above: Performed By: #### C DP, BMP, CRP, PRCAL #### [address] [address] [employer]: Sabas Lamb MD APTTon 10-24-2018 aPTT Coag (Bld) [Time] 26.3 s Normal 20.5-30.5 [facility] Comment on above: Performed By: #### C DP, BMP, CRP, PRCAL #### [address] [address] [employer]: Sabas Lamb MD Basic Metabolic Profon 10-24 (cont.) [facility] Comment on above: Result Comment: Aver age GFR for 50-59 years old: 93 mL/min/1.73sq m Chronic Kidney Disease: <60 mL/min/1.73sq m Kidney failure: <15 mL/min/1.73sq m eGFR calculated using average adult body mass. Additional eGFR calculator available at: http://www.HALKAR.com/multiple_crcl_2012.htm Performed By: #### C DP, BMP, CRP, PRCAL #### [address] [address] [employer]: Sabas Lamb MD Anion gap [Moles/Vol] 14 mmol/L Normal 9-17 [facility] Comment on above: Performed By: #### C DP, BMP, CRP, PRCAL #### [address] [id number] [employer]: Sabas Lamb MD Calcium [Mass/Vol] 9.1 mg/dL Normal 8.6-10.4 [facility] Comment on above: Performed By: #### C DP, BMP, CRP, PRCAL #### [facility] [address] [place] [address] [employer]: Sabas Lamb MD Chloride [Moles/Vol] 101 mmol/L Normal 98-107 [facility] Comment on above: Performed By: #### C DP, BMP, CRP, PRCAL #### [facility] [address] [place] [address] [employer]: Sabas Lamb MD CO2 [Moles/Vol] 23 mmol/L Normal 20-31 [facility] Comment on above: Performed By: #### C DP, BMP, CRP, PRCAL #### [facility] [address] [place] [address] [employer]: Sabas Lamb MD Creatinine [Mass/Vol] 0.34 mg/dL Low 0.50-0.90 [facility] Comment on above: Performed By: #### C DP, BMP, CRP, PRCAL #### [address] [address] [employer]: Sabas Lamb MD GFR, Amer >60 Normal >60 [facility] Comment on above: Performed By: #### C DP, BMP, CRP, PRCAL #### [facility] [address] [place] [address] [employer]: Sabas Lamb MD GFR,non Amer >60 Normal >60 [facility] Comment on above: Performed By: #### C DP, BMP, CRP, PRCAL #### [facility] [address] [place] [address] [employer]: Sabas Lamb MD Glucose [Mass/Vol] 86 mg/dL Normal 70-99 [facility] Comment on above: Performed By: #### C DP, BMP, CRP, PRCAL #### [facility] [address] [place] [address] [employer]: Sabas Lamb MD Potassium [Moles/Vol] 3.9 mmol/L Normal 3.7-5.3 [facility] Comment on above: Performed By: #### C DP, BMP, CRP, PRCAL #### [facility] [address] [place] [address] [employer]: Sabas Lamb MD Sodium [Moles/Vol] 138 mmol/L Normal 135-144 [facility] Comment on above: Performed By: #### C DP, BMP, CRP, PRCAL #### [address] [address] [employer]: Sabas Lamb MD Urea nitrogen [Mass/Vol] 11 mg/dL Normal 6-20 [facility] Comment on above: Performed By: #### C DP, BMP, CRP, PRCAL #### [address] [address] [employer]: Sabas Lamb MD BUN/CRE Ratio NOT REPORTED Normal -20 [facility] Comment on above: Performed By: #### C DP, BMP, CRP, PRCAL #### [facility] [address] [place] [address] [employer]: Sabas Lamb MD Staging: NOT REPORTED Normal [facility] Comment on above: Performed By: #### C DP, BMP, CRP, PRCAL #### [facility] [address] [place] [address] [employer]: Sabas Lamb MD CBC with Diffon 10-24-2018 Abs. Basophil 0.03 k/uL Normal 0.00-0.20 [facility] Comment on above: Performed By: #### C DP, BMP, CRP, PRCAL #### [address] [address] [employer]: Sabas Lamb MD Abs.Imm.Granulocy te 0.05 k/uL Normal 0.00-0.30 [facility] Comment on above: Performed By: #### C DP, BMP, CRP, PRCAL #### [place] [address] [employer]: Sabas Lamb MD Abs.Neutrophil (Seg) 12.06 k/uL High 1.50-8.10 [facility] Comment on above: Performed By: #### C DP, BMP, CRP, PRCAL #### [place] [address] [employer]: Sabas aLmb MD Basophils/100 WBC (Bld) 0 % Normal 0-2 [facility] Comment on above: Performed By: #### C DP, BMP, CRP, PRCAL #### [address] [address] [employer]: Sabas Lamb MD Eosinophils (Bld) [#/Vol] 10*3/uL Normal 0.00-0.44 [facility] Comment on above: Performed By: #### C DP, BMP, CRP, PRCAL #### [address] [address] [employer]: Sabas Lamb MD Eosinophils/100 WBC (Bld) 0 % Low 1-4 [facility] Comment on above: Performed By: #### C DP, BMP, CRP, PRCAL #### [facility] [address] [place] [address] [employer]: Sabas Lamb MD Erythrocyte distribution width (RBC) [Ratio] 11.9 % Normal 11.8-14.4 [facility] Comment on above: Performed By: #### C DP, BMP, CRP, PRCAL #### [address] [address] [employer]: Sabas Lamb MD Hematocrit (Bld) [Volume fraction] 39.6 % Normal 36.3-47.1 [facility] Comment on above: Performed By: #### C DP, BMP, CRP, PRCAL #### [place] [address] [employer]: Sabas Lamb MD Hemoglobin (Bld) [Mass/Vol] 12.3 g/dL Normal 11.9-15.1 [facility] Comment on above: Performed By: #### C DP, BMP, CRP, PRCAL #### [place] [address] [employer]crete Boom Operator: Sabas Lamb MD Immature granulocytes (Bld) [#/Vol] 0 % Normal 0 [facility] Comment on above: Performed By: #### C DP, BMP, CRP, PRCAL #### [place] [address] [employer] Operator: Sabas Lamb MD Lymphocytes (Bld) [#/Vol] 0.82 10*3/uL Low 1.10-3.70 [facility] Comment on above: Performed By: #### C DP, BMP, CRP, PRCAL #### [address] [address] [employer] Bo[employer] Operator: Sabas Lamb MD Lymphocytes/100 WBC (Bld) 6 % Low 24-43 [facility] Comment on above: Performed By: #### C DP, BMP, CRP, PRCAL #### [address] [address] [employer] Boom Operator: Sabas Lamb MD MCH (RBC) [Entitic mass] 31.1 pg Normal 25.2-33.5 [facility] Comment on above: Performed By: #### C DP, BMP, CRP, PRCAL #### [address] [address] [employer] Operator: Sabas Lamb MD MCHC (RBC) [Mass/Vol] 31.1 g/dL Normal 28.4-34.8 [facility] Comment on above: Performed By: #### C DP, BMP, CRP, PRCAL #### [place] [address] [employer]crete Boom Operator: Sabas Lamb MD MCV (RBC) [Entitic vol] 100.3 fL Normal 82.6-102.9 [facility] Comment on above: Performed By: #### C DP, BMP, CRP, PRCAL #### [place] [address] [employer] Operator: Sabas Lamb MD Monocytes (Bld) [#/Vol] 0.80 10*3/uL Normal 0.10-1.20 [facility] Comment on above: Performed By: #### C DP, BMP, CRP, PRCAL #### [place] [address] [employer] Operator: Sabas Lamb MD Monocytes/100 WBC (Bld) 6 % Normal 3-12 [facility] Comment on above: Performed By: #### C DP, BMP, CRP, PRCAL #### [place] [address] [employer]crete Boom Operator: Sabas Lamb MD Neutrophil (Seg) 88 % High 36-65 [facility] Comment on above: Performed By: #### C DP, BMP, CRP, PRCAL #### [address] [address] [employer] Bo[employer] Operator: Sabas Lamb MD NRBC Automated 0.0 per 100 WBC Normal 0.0 [facility] Comment on above: Performed By: #### C DP, BMP, CRP, PRCAL #### [address] [address] [employer] Boom Operator: Sabas Lamb MD Platelet mean volume (Bld) [Entitic vol] 11.5 fL Normal 8.1-13.5 [facility] Comment on above: Performed By: #### C DP, BMP, CRP, PRCAL #### [address] [address] [employer] Operator: Sabas Lamb MD Platelets (Bld) [#/Vol] 261 10*3/uL Normal 138-453 [facility] Comment on above: Performed By: #### C DP, BMP, CRP, PRCAL #### [address] [address] [employer] Operator: Sabas Lamb MD RBC (Bld) [#/Vol] 3.95 10*6/uL Normal 3.95-5.11 [facility] Comment on above: Performed By: #### C DP, BMP, CRP, PRCAL #### [address] [address] [employer] Operator: Sabas Lamb MD WBC (Bld) [#/Vol] 13.8 10*3/uL High 3.5-11.3 [facility] Comment on above: Performed By: #### C DP, BMP, CRP, PRCAL #### [facility] [address] [place] [address] Con[employer] Bo[employer] Operator: Sabas Lamb MD Auto Diff Performed NOT REPORTED Normal [facility] Comment on above: Performed By: #### C DP, BMP, CRP, PRCAL #### [facility] [address] [place] [address] Con[employer] Operator: Sabas Lamb MD Platelets (Bld) [#/Vol] NOT REPORTED Normal [facility] Comment on above: Performed By: #### C DP, BMP, CRP, PRCAL #### [facility] [address] [place] [address] [employer] Operator: Sabas Lamb MD RBC morphology finding Nom (Bld) NOT REPORTED Normal [facility] Comment on above: Performed By: #### C DP, BMP, CRP, PRCAL #### [facility] [address] [place] [address] Concrete [employer]om Operator: Sabas Lamb MD WBC Morphology NOT REPORTED Normal [facility] Comment on above: Performed By: #### C DP, BMP, CRP, PRCAL #### [address] [id number] [employer] Operator: Sabas Lamb MD PTon 10-24-2018 INR Coag (PPP) [Relative time] 1.0 {INR} Normal [facility] Comment on above: Result Comment: Therapeutic Range: Moderate Anticoagulant Intensity: INR = 2.0-3.0 High Anticoagulant Intensity: INR = 2.5-3.5 Performed By: #### C DP, BMP, CRP, PRCAL #### [address] [id number] [employer] Operator: Sabas Lamb MD PT Coag (PPP) [Time] 10.8 s Normal 9.0-12.0 [facility] Comment on above: Performed By: #### C DP, BMP, CRP, PRCAL #### [facility] [address] [place] [address] [id number] [employer] Operator: Sabas Lamb MD Basic Metabolic Profon 10-23 (cont.) Normal [facility] Comment on above: Result Comment: Aver age GFR for 50-59 years old: 93 mL/min/1.73sq m Chronic Kidney Disease: <60 mL/min/1.73sq m Kidney failure: <15 mL/min/1.73sq m eGFR calculated using average adult body mass. Additional eGFR calculator available at: http://www.HALKAR.CertiVox/multiple_crcl_2012.htm Performed By: #### C DP, BMP, CRP, PRCAL #### [facility] [address] [place] [address] [employer] Operator: Sabas aLmb MD Anion gap [Moles/Vol] 14 mmol/L Normal 9-17 [facility] Comment on above: Performed By: #### C DP, BMP, CRP, PRCAL #### [facility] [address] [place] [address] [employer] Operator: Sabas Lamb MD Calcium [Mass/Vol] 8.2 mg/dL Low 8.6-10.4 [facility] Comment on above: Performed By: #### C DP, BMP, CRP, PRCAL #### [facility] [address] [place] [address] [employer] Operator: Sabas Lamb MD Chloride [Moles/Vol] 107 mmol/L Normal 98-107 [facility] Comment on above: Performed By: #### C DP, BMP, CRP, PRCAL #### [facility] [address] [place] [address] [employer]crete Bo[employer] Operator: Sabas Lamb MD CO2 [Moles/Vol] 20 mmol/L Normal 20-31 [facility] Comment on above: Performed By: #### C DP, BMP, CRP, PRCAL #### [facility] [address] [place] [address] [employer] Operator: Sabas Lamb MD Creatinine [Mass/Vol] 0.42 mg/dL Low 0.50-0.90 [facility] Comment on above: Performed By: #### C DP, BMP, CRP, PRCAL #### [facility] [address] [place] [address] [employer] Operator: Sabas Lamb MD GFR, Amer >60 Normal >60 [facility] Comment on above: Performed By: #### C DP, BMP, CRP, PRCAL #### [address] [address] [employer] Operator: Sabas Lamb MD GFR,non Amer >60 Normal >60 [facility] Comment on above: Performed By: #### C DP, BMP, CRP, PRCAL #### [address] [address] Con[employer] Boom Operator: Sabas Lamb MD Glucose [Mass/Vol] 87 mg/dL Normal 70-99 [facility] Comment on above: Performed By: #### C DP, BMP, CRP, PRCAL #### [address] [address] [employer] Operator: Sabas Lamb MD Potassium [Moles/Vol] 3.9 mmol/L Normal 3.7-5.3 [facility] Comment on above: Performed By: #### C DP, BMP, CRP, PRCAL #### [address] [address] [employer] Operator: Sabas Lamb MD Sodium [Moles/Vol] 141 mmol/L Normal 135-144 [facility] Comment on above: Performed By: #### C DP, BMP, CRP, PRCAL #### [address] [address] [employer] Operator: Sabas Lamb MD Urea nitrogen [Mass/Vol] 14 mg/dL Normal -20 [facility] Comment on above: Performed By: #### C DP, BMP, CRP, PRCAL #### [facility] [address] [place] [address] [employer] Operator: Sabas Lamb MD BUN/CRE Ratio NOT REPORTED Normal -20 [facility] Comment on above: Performed By: #### C DP, BMP, CRP, PRCAL #### [facility] [address] [place] [address] [employer]om Operator: Sabas Lamb MD Staging: NOT REPORTED Normal [facility] Comment on above: Performed By: #### C DP, BMP, CRP, PRCAL #### [address] [address] [employer] Operator: Sabas Lamb MD C-Reactive Proteinon 019 CRP [Mass/Vol] 40.6 mg/L High 0.0-5.0 [facility] Comment on above: Performed By: #### C DP, BMP, CRP, PRCAL #### [facility] [address] [place] [address] [employer]om Operator: Sabas Lamb MD CBC with Diffon 10-23-2018 Abs. Basophil 0.03 k/uL Normal 0.00-0.20 [facility] Comment on above: Performed By: #### C DP, BMP, CRP, PRCAL #### [address] [address] [employer] Operator: Sabas Lamb MD Abs.Imm.Granulocy te 0.05 k/uL Normal 0.00-0.30 [facility] Comment on above: Performed By: #### C DP, BMP, CRP, PRCAL #### [facility] [address] [place] [address] [employer] Operator: Sabas Lamb MD Abs.Neutrophil (Seg) 13.74 k/uL High 1.50-8.10 [facility] Comment on above: Performed By: #### C DP, BMP, CRP, PRCAL #### [facility] [address] [place] [address] [employer] Operator: Sabas Lamb MD Basophils/100 WBC (Bld) 0 % Normal 0-2 [facility] Comment on above: Performed By: #### C DP, BMP, CRP, PRCAL #### [facility] [address] [place] [address] [employer] Operator: Sabas Lamb MD Eosinophils (Bld) [#/Vol] 10*3/uL Normal 0.00-0.44 [facility] Comment on above: Performed By: #### C DP, BMP, CRP, PRCAL #### [address] [address] [employer] Operator: Sabas Lamb MD Eosinophils/100 WBC (Bld) 0 % Low 1-4 [facility] Comment on above: Performed By: #### C DP, BMP, CRP, PRCAL #### [address] [address] [employer]om Operator: Sabas Lamb MD Erythrocyte distribution width (RBC) [Ratio] 12.1 % Normal 11.8-14.4 [facility] Comment on above: Performed By: #### C DP, BMP, CRP, PRCAL #### [address] [address] [employer] Operator: Sabas Lamb MD Hematocrit (Bld) [Volume fraction] 35.7 % Low 36.3-47.1 [facility] Comment on above: Performed By: #### C DP, BMP, CRP, PRCAL #### [address] [address] [employer] Operator: Sabas Lamb MD Hemoglobin (Bld) [Mass/Vol] 11.5 g/dL Low 11.9-15.1 [facility] Comment on above: Performed By: #### C DP, BMP, CRP, PRCAL #### [address] [address] [employer] Operator: Sabas Lamb MD Immature granulocytes (Bld) [#/Vol] 0 % Normal 0 [facility] Comment on above: Performed By: #### C DP, BMP, CRP, PRCAL #### [address] [address] [employer] Operator: Sabas Lamb MD Lymphocytes (Bld) [#/Vol] 1.21 10*3/uL Normal 1.10-3.70 [facility] Comment on above: Performed By: #### C DP, BMP, CRP, PRCAL #### [address] [address] [employer] Operator: Sabas Lamb MD Lymphocytes/100 WBC (Bld) 8 % Low 24-43 [facility] Comment on above: Performed By: #### C DP, BMP, CRP, PRCAL #### [address] [address] Con[employer] Operator: Sabas Lamb MD MCH (RBC) [Entitic mass] 31.8 pg Normal 25.2-33.5 [facility] Comment on above: Performed By: #### C DP, BMP, CRP, PRCAL #### [address] [address] [employer] Operator: Sabas Lamb MD MCHC (RBC) [Mass/Vol] 32.2 g/dL Normal 28.4-34.8 [facility] Comment on above: Performed By: #### C DP, BMP, CRP, PRCAL #### [address] [address] [employer] Operator: Sabas Lamb MD MCV (RBC) [Entitic vol] 98.6 fL Normal 82.6-102.9 [facility] Comment on above: Performed By: #### C DP, BMP, CRP, PRCAL #### [address] [address] Con[employer] Boom Operator: aSbas Lamb MD Monocytes (Bld) [#/Vol] 1.01 10*3/uL Normal 0.10-1.20 [facility] Comment on above: Performed By: #### C DP, BMP, CRP, PRCAL #### [address] [address] [employer] Operator: Sabas Lamb MD Monocytes/100 WBC (Bld) 6 % Normal 3-12 [facility] Comment on above: Performed By: #### C DP, BMP, CRP, PRCAL #### [address] [address] [employer]om Operator: Sabas Lamb MD Neutrophil (Seg) 86 % High 36-65 [facility] Comment on above: Performed By: #### C DP, BMP, CRP, PRCAL #### [address] [address] [employer]om Operator: Sabas Lamb MD NRBC Automated 0.0 per 100 WBC Normal 0.0 [facility] Comment on above: Performed By: #### C DP, BMP, CRP, PRCAL #### [address] [address] Concrete [employer]om Operator: Sabas Lamb MD Platelet mean volume (Bld) [Entitic vol] 11.7 fL Normal 8.1-13.5 [facility] Comment on above: Performed By: #### C DP, BMP, CRP, PRCAL #### [address] [address] Con[employer]om Operator: Sabas Lamb MD Platelets (Bld) [#/Vol] 268 10*3/uL Normal 138-453 [facility] Comment on above: Performed By: #### C DP, BMP, CRP, PRCAL #### [facility] [address] [place] [address] [employer]om Operator: Sabas Lamb MD RBC (Bld) [#/Vol] 3.62 10*6/uL Low 3.95-5.11 [facility] Comment on above: Performed By: #### C DP, BMP, CRP, PRCAL #### [address] [address] Concrete Boom Operator: Sabas Lamb MD WBC (Bld) [#/Vol] 16.1 10*3/uL High 3.5-11.3 [facility] Comment on above: Performed By: #### C DP, BMP, CRP, PRCAL #### [address] [address] Con[employer]om Operator: Sabas Lamb MD Auto Diff Performed NOT REPORTED Normal [facility] Comment on above: Performed By: #### C DP, BMP, CRP, PRCAL #### [address] [address] Concrete Boom Operator: Sabas Lamb MD Platelets (Bld) [#/Vol] NOT REPORTED Normal [facility] Comment on above: Performed By: #### C DP, BMP, CRP, PRCAL #### [address] [address] Concrete Boom Operator: Sabas Lamb MD RBC morphology finding Nom (Bld) NOT REPORTED Normal [facility] Comment on above: Performed By: #### C DP, BMP, CRP, PRCAL #### [address] [address] Concrete Boom Operator: Sabas Lamb MD WBC Morphology NOT REPORTED Normal [facility] Comment on above: Performed By: #### C DP, BMP, CRP, PRCAL #### [address] [address] Concrete Boom Operator: Sabas Lamb MD CT HEAD WO [...] Cas Contreras MD 10/23/18 Final result Normal [facility] MRI BRAIN W CONTRASTon 10-23 MRI BRAIN [...] Freddie Maldonado MD 10/23/18 Final result Normal [facility] OPERATIVE REPORTon 10-23-201 9 OPERATIVE REPORT [address] [phone] OPERATIVE REPORT PATIENT NAME: DACIA FINLEY : 1960 MED REC NO: [id number] ROOM: [facility] ACCOUNT NO: [id number] ADMIT DATE: 10/22/2018 PROVIDER: Meera Rojas DATE [...] and coughing. She presented at [facility] ER earlier today due to these complaints and was found to have a sizeable right-sided subdural hematoma. She was transferred to [facility] for further management. She was reported to be neurologically intact when at the outside hospital, but upon arrival to the ER at [facility], she was noted to have some mild [...] evidence of complication. MEERA ROJAS [id number] Doc#: [id number] CC: Normal [facility] Procalcitoninon 10-23-2018 Procalcitonin 0.06 ng/mL Normal <0.09 [facility] Comment on above: Result Comment: Suspected Sepsis: [...] entered into the Change in Procalcitonin Calculator ([email or web address]-oig-ikcalkeznq.CertiVox) to determine the patient's Mortality Risk Prognosis Performed By: #### C DP, BMP, CRP, PRCAL #### [place] [address] Concrete Boom Operator: Sabas Lamb MD XR CHEST PORTABLEon [...] Carlos Carlson MD 10/23/18 Final result Normal [facility] Platelets,Transfuseon 2018 Platelets,Transfu se Unit Number [id number] Blood Component Type Leukocyte Reduced Irradiated Plateletpheresis Unit Division 00 Status of Unit TRANSFUSED Transfusion Status OK TO TRANSFUSE Normal [facility] Comment on above: Performed By: #### T PLT #### [facility] [address] [place] [address] Concrete Boom Operator: Sabas Lamb MD Type + Screenon 10-22-2018 Type + Screen Sample Expiration Arm Band Number BE [id number] ABO/Rh(D) A POSITIVE Antibody Screen NEGATIVE Normal [facility] Comment on above: Performed By: #### T YS #### [facility] [address] [place] [address] Con[employer] Boom Operator: Sabas Lamb MD Discharge Summaryon 06-07-20 Discharge Summary MR#: [id number] [facility] Dacia Finley Admitted: 06/05/2017 Discharged: 06/06/2017 Date of : 1960 Physician: Rachele Post DO DISCHARGE SUMMARYDISCHARGE SERVICE: CCU.PRIMARY DIAGNOSIS: Acute coronary syndrome.SECONDARY DIAGNOSIS: Migraine.PROCEDURE: Percutaneous coronary intervention with stent placement.HOSPITAL COURSE: This is a 56-year-old female with past medical history ofmigraines, who was transferred from [facility]. She presented therewith chest discomfort and was found to have EKG abnormalities. In the lastmonth, the patient reported 3 episodes of chest pain with the latest being. The chest pain was also associated with sweating, shortnessof breath, and nausea. She was transferred from [facility] andadmitted to the CCU. The patient's troponins were remained negative, butwith her chest pain and EKG changes, she was taken to the labor economics professor. In thecath lab, this showed 90% stenosis [...] Dict: 06/06/2017/02:36 P/ROSI Keyate Trans: 06/07/2017 09:17 A/Kong_JN:[id number]: Ryan Arevalo M.D. [address] [facility] [address] Kel Beuno M.D. [address] [place] [address] Normal [facility] BASIC METABOLIC PANELon 12-3 Calcium 9.3 mg/dL Normal 8.6-10.3 [facility] Comment on above: Order Comment: Unkno wn Performed By: #### 0 0071, [id number] ####[facility] [place] [address], [facility] Chloride 105 mmol/L Normal 98-107 [facility] Comment on above: Order Comment: Unkno wn Performed By: #### 0 0071, 21662 ####[facility] [facility] [place] [address], [facility] CO2 24 mmol/L Normal 21-31 [facility] Comment on above: Order Comment: Unkno wn Performed By: #### 0 0071, 92987 ####[facility] [facility] [place] [address], [facility] Creatinine 0.72 mg/dL Normal 0.60-1.20 [facility] Comment on above: Order Comment: Unkno wn Performed By: #### 0 0071, 81290 ####[facility] [facility] [place] [address], [facility] eGFR (black) mL/min/{1.73_m2} Normal >60 [facility] Comment on above: Order Comment: Unkno wn Performed By: #### 0 0071, 58029 ####[facility] [facility].[address] eGFR (non-black) mL/min/{1.73_m2} Normal >60 [facility] Comment on above: Order Comment: Unkno wn Performed By: #### 0 0071, 71558 ####[facility] [facility] [place] [address], [facility] Glucose mass conc 89 mg/dL Normal 70-100 [facility] Comment on above: Order Comment: Unkno wn Performed By: #### 0 0071, 82951 ####[facility] [facility] [place] [address], [facility] Potassium molar conc 3.8 mmol/L Normal 3.5-5.1 [facility] Comment on above: Order Comment: Unkno wn Performed By: #### 0 0071, 61850 ####[facility] [facility] [place] [address], [facility] Sodium 139 mmol/L Normal 136-145 [facility] Comment on above: Order Comment: Unkno wn Performed By: #### 0 1, 55018 ####[facility] [facility] [place] [address] [place] [address] Urea nitrogen 14 mg/dL Normal 7-25 [facility] Comment on above: Order Comment: Unkno wn Performed By: #### 0 007, 69541 ####[facility] [facility] [place] [address] [place] [address] CBC COMPLETE BLOOD COUNTon Erythrocyte distribution width Auto Ratio (RBC) 13.3 % Normal 11.5-16.9 [facility] Comment on above: Order Comment: Unkno wn Performed By: #### 5 0608 ####[facility] [facility].[address] Erythrocytes (RBC) 4.43 mill/mm3 Normal 3.50-5.50 [facility] Comment on above: Order Comment: Unkno wn Performed By: #### 5 0608 ####[facility] [facility], [place] [address] [place] [address] Hematocrit (HCT) 40.9 % Normal 36.0-48.0 [facility] Comment on above: Order Comment: Unkno wn Performed By: #### 5 0608 ####[facility] [facility], [place] [address] [place] [address] Hemoglobin mass conc (Bld) 13.6 g/dL Normal 12.0-15.0 [facility] Comment on above: Order Comment: Unkno wn Performed By: #### 5 0608 ####[facility] [place] [place] [address], [facility] MCH 30.7 pg Normal 24.0-32.0 [facility] Comment on above: Order Comment: Unkno wn Performed By: #### 5 0608 ####[facility] [facility] [place] [address], [facility] MCHC mass conc (RBC) 33.2 g/dL Normal 32.0-36.0 [facility] Comment on above: Order Comment: Unkno wn Performed By: #### 5 0608 ####[facility] MCV 92.2 fL Normal 80.0-100.0 [facility] Comment on above: Order Comment: Unkno wn Performed By: #### 5 0608 ####[facility] PLAT CNT 194 Thou/mm3 Normal 100-400 [facility] Comment on above: Order Comment: Unkno wn Performed By: #### 5 0608 ####[place] [address] [address] WBC (Leukocytes) 10.8 Thou/mm3 High 4.0-10.0 [facility] Comment on above: Order Comment: Unkno wn Performed By: #### 5 0608 ####[facility] Cardiovascular Lab Reporton 06-06-2017 Cardiovascular Lab Report [facility] Patient [facility]: [facility] [place] MR #: [id number] Physician: Elías Zhao M.D.Medicine Service Date: 06/05/2017Division of Birthdate: 1960Cardiology Room #: 3CD [id number] [place] [address]Phone Fax Cardiovascular Laboratory ReportINDICATION: Dacia Finley is [...] signed informed consent. She was brought to labor economics professor in a fastingstate. The right groin area was prepped and draped in usual fashion.Using micropuncture technique, the right common femoral artery wasaccessed. The inner cannula was advanced and limited right femoralangiography was performed followed by upsizing to a 5-Latvian x 11 cmsheath. Bilateral selective carotid angiography was then performed using5-Latvian JL4 and JR4 diagnostic catheters. Catheters were removed.Heparin was administered intravenously and therapeutic ACT confirmed duringthe procedure. A 5-Latvian JR4 guiding catheter was advanced and used toengage the right coronary ostium. A [employer] wire was advanced into thedistal RCA. Balloon [...] stentfollowed by post dilatation using [employer] [place] 3.0 x 20 mm noncompliantballoon inflated at [...] 06/05/2017/03:03 P/Elías Cannon M.D.Date Trans: 06/06/2017 07:01 A/Kong_JN:[id number]: Ryan Arevalo M.D. [facility] [address] [facility] [facility] [address] Kel Bueno M.D. [facility]5 [facility] [address] Normal [facility] MAGNESIUM BLOODon 06-06-2017 Magnesium 1.9 mg/dL Normal 1.9-2.7 [facility] Comment on above: Performed By: #### 5 0608 ####[facility].[address] APTTon 06-05-2017 aPTT 32.6 s Normal 25.0-35.0 [facility] Comment on above: Order Comment: No: [...] THIS PURPOSE. Performed By: #### 5 6101, [id number] ####[facility] [place] [address], [facility] BASIC METABOLIC PANELon - Calcium 8.9 mg/dL Normal 8.6-10.3 [facility] Comment on above: Order Comment: No: D o not add to previous draw Performed By: #### 0 0071 ####[facility] [place] [address], [facility] Chloride 106 mmol/L Normal 98-107 [facility] Comment on above: Order Comment: No: D o not add to previous draw Performed By: #### 0 0071 ####[facility] [place] [address], [facility] CO2 28 mmol/L Normal 21-31 [facility] Comment on above: Order Comment: No: D o not add to previous draw Performed By: #### 0 0071 ####[facility] [place] [address], [facility] Creatinine 0.76 mg/dL Normal 0.60-1.20 [facility] Comment on above: Order Comment: No: D o not add to previous draw Performed By: #### 0 0071 ####[facility] [place] [address], [facility] eGFR (black) mL/min/{1.73_m2} Normal >60 [facility] Comment on above: Order Comment: No: D o not add to previous draw Performed By: #### 0 0071 ####[facility] [place] [address], [facility] eGFR (non-black) mL/min/{1.73_m2} Normal >60 Th e [facility] Comment on above: Order Comment: No: D o not add to previous draw Performed By: #### 0 0071 ####[facility] [place] [address], [facility] Glucose mass conc 88 mg/dL Normal 70-100 [facility] Comment on above: Order Comment: No: D o not add to previous draw Performed By: #### 0 0071 ####[facility] [place] [address], [facility] Potassium molar conc 3.8 mmol/L Normal 3.5-5.1 [facility] Comment on above: Order Comment: No: D o not add to previous draw Performed By: #### 0 0071 ####[facility] [place] [address], [facility] Sodium 138 mmol/L Normal 136-145 [facility] Comment on above: Order Comment: No: D o not add to previous draw Performed By: #### 0 0071 ####[facility] [id number], [facility] Urea nitrogen 10 mg/dL Normal 7-25 [facility] Comment on above: Order Comment: No: D o not add to previous draw Performed By: #### 0 0071 ####[facility] [address] CBC COMPLETE BLOOD COUNTon Erythrocyte distribution width Auto Ratio (RBC) 13.9 % Normal 11.5-16.9 [facility] Comment on above: Order Comment: No: D o not add to previous draw Performed By: #### 5 0608 ####[facility] [address] Erythrocytes (RBC) 4.66 mill/mm3 Normal 3.50-5.50 [facility] Comment on above: Order Comment: No: D o not add to previous draw Performed By: #### 5 0608 ####[facility].[address] Hematocrit (HCT) 42.9 % Normal 36.0-48.0 [facility] Comment on above: Order Comment: No: D o not add to previous draw Performed By: #### 5 0608 ####[place] [address] [facility].[address] Hemoglobin mass conc (Bld) 14.2 g/dL Normal 12.0-15.0 [facility] Comment on above: Order Comment: No: D o not add to previous draw Performed By: #### 5 0608 ####[facility] [address] MCH 30.5 pg Normal 24.0-32.0 [facility] Comment on above: Order Comment: No: D o not add to previous draw Performed By: #### 5 0608 ####[facility] [address] MCHC mass conc (RBC) 33.1 g/dL Normal 32.0-36.0 [facility] Comment on above: Order Comment: No: D o not add to previous draw Performed By: #### 5 0608 ####[facility] [place] [address], [facility] MCV 92.0 fL Normal 80.0-100.0 [facility] Comment on above: Order Comment: No: D o not add to previous draw Performed By: #### 5 0608 ####[facility] [place] [address], [facility] PLAT CNT 178 Thou/mm3 Normal 100-400 [facility] Comment on above: Order Comment: No: D o not add to previous draw Performed By: #### 5 0608 ####[facility] WBC (Leukocytes) 6.6 Thou/mm3 Normal 4.0-10.0 [facility] Comment on above: Order Comment: No: D o not add to previous draw Performed By: #### 5 0608 ####[facility] Erythrocyte distribution width Auto Ratio (RBC) 13.1 % Normal 11.5-16.9 [facility] Comment on above: Order Comment: No: D o not add to previous draw Performed By: #### 5 0608 ####[facility] Erythrocytes (RBC) 4.49 mill/mm3 Normal 3.50-5.50 [facility] Comment on above: Order Comment: No: D o not add to previous draw Performed By: #### 5 0608 ####[facility] Hematocrit (HCT) 41.7 % Normal 36.0-48.0 [facility] Comment on above: Order Comment: No: D o not add to previous draw Performed By: #### 5 0608 ####[facility] [place] [address], [facility] Hemoglobin mass conc (Bld) 13.9 g/dL Normal 12.0-15.0 [facility] Comment on above: Order Comment: No: D o not add to previous draw Performed By: #### 5 0608 ####[facility] [place] [address], [facility] MCH 31.1 pg Normal 24.0-32.0 [facility] Comment on above: Order Comment: No: D o not add to previous draw Performed By: #### 5 0608 ####[facility] MCHC mass conc (RBC) 33.5 g/dL Normal 32.0-36.0 [facility] Comment on above: Order Comment: No: D o not add to previous draw Performed By: #### 5 0608 ####[facility] MCV 92.8 fL Normal 80.0-100.0 [facility] Comment on above: Order Comment: No: D o not add to previous draw Performed By: #### 5 0608 ####[place] [address] [facility] [place] [address], [facility] PLAT CNT 172 Thou/mm3 Normal 100-400 [facility] Comment on above: Order Comment: No: D o not add to previous draw Performed By: #### 5 0608 ####[facility] [place] [address], [facility] WBC (Leukocytes) 6.7 Thou/mm3 Normal 4.0-10.0 [facility] Comment on above: Order Comment: No: D o not add to previous draw Performed By: #### 5 0608 ####[facility] [place] [address], [place] History and Physicalon 06-05 History and Physical [id number] Admitted: 06/05/2017 Date of : 1960 Attending Physician: Wayne Donis MD Room #: 3CD [id number] Discharge Date: HISTORY AND PHYSICALCHIEF COMPLAINT: Chest pain.HISTORY OF PRESENT ILLNESS: The patient is a 56-year-old female withhistory of migraines, who was transferred [facility] after shepresented there with chest discomfort and [...] chest. Because of [facility] and he did EKG, which showed some T waveinversions in the lateral leads, so [facility]. Her troponin there was negative and EKG again asmentioned, was abnormal with T wave inversion in the lateral leads. [facility] andmanagement. When I [...] or drug use.FAMILY HISTORY: Father of an AR at age 79 and mother of AR whenshe was having an open heart surgery at age 57.REVIEW OF SYSTEMS: A 10-point review of systems was done, and pertinentpositives and negatives mentioned in the HPI.MEDICATIONS: The patient only takes Imitrex for migraines as needed.PHYSICAL EXAMINATION: VITAL SIGNS: Temperature 98, pulse 75, [id number], blood pressure 129/80, and saturating 100% on [...] 06/05/2017/03:33 A/Wayne Donis MDDate Trans: 06/05/2017 04:23 A/Kong_JN:[id number] Normal [facility] PROTHROMBIN TIMEon 7 INR Coag RelTime (PPP) 0.98 {INR} Normal 0.91-1.16 [facility] Comment on above: Order Comment: No: [...] OF ACTION, CLINICALEFFECTIVENESS, AND OPTIMAL THERAPEUTIC RANGE. [id number]. Performed By: #### 5 6101, 16964 ####[facility] Prothrombin time (PT) Coag time (PPP) 13.0 s Normal 12.3-14.8 [facility] Comment on above: Order Comment: No: D o not add to previous draw Result Comment: ALL RESULTS MUST BE INTERPRETED WITH RESPECT TO BLOOD DRAWING ARTIFACTOR DILUTION ERROR OF ANTICOAGULANT AT THE TIME OF SAMPLING. Performed By: #### 5 6101, 68631 ####[facility] [place] [address], [facility] TROPONIN-Ion 06-05-2017 Troponin I.cardiac mass conc 0.03 ng/mL Normal 0.00-0.04 [facility] Comment on above: Order Comment: No: D o not add to previous draw Result Comment: REFE RENCE RANGES: 0.00 - 0.04 ng/ml NORMAL 0.05 - 0.50 ng/ml INDETERMINATE > 0.50 ng/ml CONSISTENT WITH AN M.I. Performed By: #### 3 5200 ####[facility] [place] [address], [facility] Troponin I.cardiac mass conc 0.01 ng/mL Normal 0.00-0.04 [facility] Comment on above: Order Comment: No: D o not add to previous draw Result Comment: REFE RENCE RANGES: 0.00 - 0.04 ng/ml NORMAL 0.05 - 0.50 ng/ml INDETERMINATE > 0.50 ng/ml CONSISTENT WITH AN M.I. Performed By: #### 3 5200 ####[facility] [place] [address], [facility] Troponin I.cardiac mass conc 0.02 ng/mL Normal 0.00-0.04 [facility] Comment on above: Order Comment: No: D o not add to previous draw Result Comment: REFE RENCE RANGES: 0.00 - 0.04 ng/ml NORMAL 0.05 - 0.50 ng/ml INDETERMINATE > 0.50 ng/ml CONSISTENT WITH AN M.I. Performed By: #### 3 5200 ####[facility] [place] [address], [facility] Vital Signs Date Time Vital Sign Value Performing Clinician Samir olivas 01-19-2023 11:15-0400 Diastolic blood pressure 92 mm[Hg] Elvira Scherer DO Work Phone: [facility] 01-19-2023 11:15-0400 Heart rate 75 /min Elvira Scherer DO Work Phone: [facility] [employer] 01-19-2023 11:15-0400 Respiratory rate 16 /min Elvira Scherer DO Work Phone: [facility] [employer] 01-19-2023 11:15-0400 SaO2% (BldA) [Mass fraction] 97 % Elvira Scherer DO Work Phone: [facility] [employer] 01-19-2023 11:15-0400 Systolic blood pressure 112 mm[Hg] Elvira Scherer DO Work Phone: [facility] [employer] 01-19-2023 10:48-0400 Body temperature 96.91 [degF] Elvira Scherer DO Work Phone: [facility] [employer] 01-19-2023 09:50-0400 Body height 154.9 cm Elvira Scherer DO Work Phone: [facility] [employer] 01-19-2023 09:50-0400 Body mass index (BMI) [Ratio] 19.84 kg/m2 Elvira Scherer DO Work Phone: [facility] [employer] 01-19-2023 09:50-0400 Body weight 47.63 kg Elvira Scherer DO Work Phone: [facility] [employer] 12-01-2022 10:15-0400 Diastolic blood pressure 67 mm[Hg] Elvira Scherer DO Work Phone: [facility] [employer] 12-01-2022 10:15-0400 Heart rate 66 /min Elvira Scherer DO Work Phone: [facility] [employer] 12-01-2022 10:15-0400 SaO2% (BldA) [Mass fraction] 97 % Elvira Scherer DO Work Phone: [facility] [employer] 12-01-2022 10:15-0400 Systolic blood pressure 112 mm[Hg] Elvira Scherer DO Work Phone: [facility] [employer] 12-01-2022 09:41-0400 Body temperature 97 [degF] Elvira Scherer DO Work Phone: [facility] 12-01-2022 09:41-0400 Respiratory rate 18 /min Elvirapietro Scherer Work Phone: [facility] 12-01-2022 08:20-0400 Body mass index (BMI) [Ratio] 20.18 kg/m2 Elvirapietro Scherer DO Work Phone: [facility] 12-01-2022 08:20-0400 Body weight 48.44 kg Elvirapietro Scherer DO Work Phone: [facility] 11-17-2022 11:32-0400 Body height 154.9 cm Elvira Paul Work Phone: [facility] Encounters Encounter Date Encounter Type Care Provider Facility Start: 01-19-2023 End: 01-19-2023 ambulatory RYAN Warner [facility] Start: 01-19-2023 End: 01-19-2023 Subsequent hospital visit by physician Elvira Scherer DO Work Phone: [facility] Start: 12-01-2022 End: 12-01-2022 ambulatory RYAN Warner [facility] Start: 12-01-2022 End: 12-01-2022 Subsequent hospital visit by physician Elvira Scherer DO Work Phone: [facility] Start: 09-09-2022 End: 09-10-[address] RYAN AREVALO . Facility:[facility] Start: 08-29-2022 Encounter for genera l adult medical examination without abnormal findings DR RYAN AREVALO . The [facility] Start: 08-21-2022 End: 08-21-[address] RYAN AREVALO . Facility:[facility] Start: 08-21-2022 End: 08-21-2022 Encounter for general adult medical examination without abnormal findings DR RYAN AREVALO . Facility:[facility] Start: 08-15-2022 End: 08-16-[address] RYAN AREVALO . Facility:[facility] Start: 10-22-2018 End: 10-26-2018 Evaluation and management of inpatient MEERA ROJAS [facility] Start: 06-05-2017 End: 06-06-2017 Evaluation and management of inpatient KEL BUENO Facility:[facility] Procedures Date Procedure Procedure Detail Performing [...] HOB MEERA Ray Start: 10-23-2018 FULL CODE MEEAR JOSELUISTyler Ray Start: 10-23-2018 INITIATE OXYGEN THER APY PROTOCOL MEERA ROJAS Start: 10-23-2018 INTAKE AND OUTPUT MEERA ROJAS Start: 10-23-2018 NEURO CHECKS MEERA Ray Start: 10-23-2018 OT EVAL AND TREAT MEERA ROJAS Start: 10-23-2018 PLACE INTERMITTENT P NEUMATIC COMPRESSION DEVICE MEERA ROJAS Start: 10-23-2018 PT EVAL AND TREAT MEERA ROJAS Start: 10-23-2018 SEIZURE PRECAUTIONS MERVIN ID BOB Start: 10-23-[address] PATROL EVAL AND TREAT RENNY D BOB Start: [...] 10:26 AM [facility] Start: 01-06-2023 Influenza vaccination B [facility] Start: 12-01-2022 End: 12-01-2022 Xcapsl ctrc rmvl insj io lens prosth w/o ecp EYE CATARACT EMULSIFICATION IOL IMPLANT Age-related nuclear cataract of left eye 12/01/2022 9:07 AM [facility] Start: 10-26-2019 Lipid panel Lipids [facility] Start: 08-29-2009 Screening for malign ant neoplasm of breast Breast cancer screen [facility] Start: 08-29-2009 Screening for malign ant neoplasm of lung Low dose CT lung screening &/or counseling [facility] Start: 08-29-2009 Shingles vaccine (1 of 2) Shingles vaccine (1 of 2) [facility] Start: 08-29-2004 Screening for malign ant neoplasm of colon [facility] Start: 08-29-1978 DTaP/Tdap/Td vaccine (1 - Tdap) DTaP/Tdap/Td vaccine (1 - Tdap) [facility] Start: 08-29-1977 Hepatitis C screening Hepatitis C sc reen [facility] Start: 08-29-1974 HIV screening HIV screen [facility] Start: 1971 Depression Screen Depression Screen [facility] Start: 08-29-1965 Pneumococcal 0-64 ye ars Vaccine (1 - PCV) Pneumococcal 0-64 years Vaccine (1 - PCV) [facility] Start: 03-01-1960 COVID-19 Vaccine (#1) COVID-19 Vacci ne (#1) [facility] Oxygen therapy [Mini mum Data Set] Initiate Oxygen Therapy Protocol Respiratory Care Routine Daily until discontinued starting 12/01/2022 [facility] Comment on above: Daily until disconti nued starting 12/01/2022 Oxygen therapy [Mini mum Data Set] Initiate Oxygen Therapy Protocol Respiratory Care Routine Daily until discontinued starting 12/01/2022 [facility] Comment on above: Daily until disconti nued starting 12/01/2022 Oxygen therapy [Mini mum Data Set] Initiate Oxygen Therapy Protocol Respiratory Care Routine Daily until discontinued starting 01/19/2023 [facility] [employer] Comment on above: Daily until disconti nued starting 01/19/2023 Oxygen therapy [[facility] Data Set] Initiate Oxygen Therapy Protocol Respiratory Care Routine Daily until discontinued starting 01/19/2023 [facility] [employer] Comment on above: Daily until disconti nued starting 01/19/2023 Payers Date Payer Category Payer Unknown [id number] 2.16.8 [id number] 1960 Unknown [id number] 2.16.84 [id number] 1960 Unknown [id number] 2.16.84 [id number] 1960 Unknown [id number] 2.16.84 [id number] 1960 Unknown [id number] 2.16.8 [id number] 1960 Unknown [id number] 2.16.8 [id number] 1960 [facility] [id number] Social History Date Type Detail Facility Start: 12-01-2022 [facility] History of tobacco use Cigarette Smoker [facility] [employer] Start: 12-01-2022 Cigarettes smoked current (pack per day) - Reported 1 [employer] Start: 12-01-2022 Tobacco use and exposure Smoke less tobacco non-user [facility] Start: 12-01-2022 End: 01-19-2023 Alcohol intake Lifetime non-drinker (finding) [employer] Start: 10-23-2018 History SDOH Alcohol Frequency 1 [facility] [employer] Start: 1960 Sex Assigned At Not on file [facility] [employer] Medical Equipment Procedure Code Equipment Code Equipment Origin al Text Equipment Identifier Dates Lens Intraocular Bcnvx 22+ Diopt 6x12.5 Mm Acryl [employer] - [id number] Start: 12-01-2022 Lens Intraocular Bcnvx 22+ Diopt 6x12.5 Mm Acryl [employer] - [id number] Start: 01-19-2023 History of Present illness [...] phone call. documented in this encounter [facility] Discharge instructions 01-19-2023 Discharge Instructions Note Date [...] the healing period. The office number is [phone]. Take surgery bag and all eye drops to Dr. Scherer's office tomorrow at 9:50am. You may resume your normal diet. Start your eye drops tomorrow after your post-op appointment: Ofloxacin/Polytrim one drop to the operated eye 4 times daily Prednisolone one drop to the operated eye 4 times daily documented in this encounter [facility] History of Present illness Narrative 12-01-2022 Kadie Mckinney RN - 12/01/2022 10:05 AM Octavio Mckinney RN - 12/01/2022 10:01 AM Susan Bryant RN - 12/01/2022 9:15 AM Roberta Cehn RN - 11/21/2022 1:04 PM EDT Note [...] of procedure. EKG received from [facility], will have anesthesia review. Patient instructed on [...] EKG done. documented in this encounter [facility] Discharge instructions 12-01-2022 Discharge Instructions Note Date [...] the healing period. The office number is [phone]. Take surgery bag and all eye drops to Dr. Scherer's office tomorrow at 8:50am. You may resume your normal diet. 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 documented in this encounter [facility] Evaluation note Note Date & Type Note Facility Evaluation note Diagnosis Age-related nuclear cataract of right eye- Primary Senile nuclear sclerosis documented in this encounter [facility] Summary Purpose Family History No Family History [...] DATE CREATED AUTHOR AUTHOR'S ORGANIZ ATION 01/19/2019 [facility] DATE CREATED AUTHOR AUTHOR'S ORGANIZ ATION 04/13/2021 [facility] DATE CREATED AUTHOR AUTHOR'S ORGANIZ ATION 08/26/2021 [facility] DATE CREATED AUTHOR AUTHOR'S ORGANIZ ATION 09/14/2022 [facility] DATE CREATED AUTHOR AUTHOR'S ORGANIZ ATION 01/22/2023 [facility] DATE CREATED AUTHOR AUTHOR'S ORGANIZ ATION 06/04/2023 [facility] Reason for Visit (unrecogniz ed section and content) Specialty Diagnoses / Procedures Referred By Mo garza Referred To Contact Diagnoses Age-related nuclear cataract of left eye AGE-RELATED NUCLEAR CAT 3+ NS, 1+PSC Procedures WI XCAPSL CTRC RMVL INSJ IO LENS PROSTH W/O ECP EYE CATARACT EMULSIFICATION IOL IMPLANT Elvira Scherer, DO [address] [place] [address] [facility] [address] [place] [address] Referral ID Status Reason Start Date Expiration Date Visits Re quested Visits Authorized [id number] 1 1 Specialty Diagnoses / Procedures Referred By Mo garza Referred To Contact Diagnoses 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 [H25.811] Procedures WI XCAPSL CTRC RMVL INSJ IO LENS PROSTH W/O ECP EYE CATARACT EMULSIFICATION IOL IMPLANT Elvira Scherer, DO [address] [place] [address] [facility] [address] [place] [address] Referral ID Status Reason Start Date Expiration Date Visits Re quested Visits Authorized [id number] 1 1 Scheduled Active and Recently Administ [...] starting 30 minutes prior to surgery, [facility] - enter number of doses based [...] Care Teams (unrecognized sec tion and content) Compensation Adjuster Relationship Specialty Start Date End Date Ryan Arevalo MD [address] [place] [address] PCP - General Family Medicine 10/22/18 FOR [...] BE BASED ON THE PRIMARY CLINICAL RECORDS. [employer] [facility]. provides no warranty or guarantee of the accuracy or completeness of information in this document.
[2024-04-18 07:44] LABS: Basophils Absolute Auto 0.1 10^3/uL (0.0-0.1); Basophils Percent Auto 1.3 % (0.2-2.0); Eosinophils Absolute Auto 0.3 10^3/uL (0.0-0.7); Eosinophils Percent Auto 3.4 % (0.9-7.0); Hematocrit 43.8 % (36.0-48.0); Hemoglobin 14.7 g/dL (12.0-16.0); Immature Granulocytes Abs Auto 0.03 10^3/uL (0.00-0.03); Immature Granulocytes Pct Auto 0.3 % (0.0-0.5); Lymphocytes Percent Auto 32.3 % (20.5-60.0); Mean Corpuscular HGB Conc 33.6 g/dL (29.9-35.2); Mean Corpuscular Hemoglobin 31.7 pg (26.7-34.0); Mean Corpuscular Volume 94.6 fL (81.0-99.0); Mean Platelet Volume 11.4 fL (9.5-13.5); Monocytes Absolute Auto 0.8 10^3/uL (0.3-0.8); Monocytes Percent Auto 8.6 % (1.7-12.0); Neutrophils Absolute Auto 4.9 10^3/uL (1.4-6.5); Neutrophils Percent Auto 54.1 % (43.0-75.0); Platelet Count 209 10^3/uL (150-450); Red Blood Count 4.63 10^6/uL (4.20-5.40); Red Cell Distribution Width 13.3 % (11.0-15.0); White Blood Count 9.1 10^3/uL (4.0-11.0)
[2024-04-18 08:26] LABS: Estimated Average Glucose 105 mg/dL; Glycohemoglobin A1C 5.3 % (4.5-6.2)
[2024-04-18 10:45] LABS: Alanine Aminotransferase 14 U/L (14-59); Albumin Globulin Ratio 1.1; Albumin Level 3.3 g/dL (3.4-5.0); Alkaline Phosphatase 69 U/L (46-116); Anion Gap 13.8; Aspartate Amino Transferase 10 U/L (15-37); BUN Creatinine Ratio 12.1; Bilirubin Total 0.3 mg/dL (0.2-1.0); Calcium 8.5 mg/dL (8.5-10.1); Carbon Dioxide 25.7 mmol/L (21.0-32.0); Chloride 109 mmol/L (98-107); Chol HDL Ratio 3.8; Cholesterol 167 mg/dL (<=200); Estimated GFR (African America >60 (>=60 mL/min/1.73m^2); Estimated GFR (Non-African Ame 52 (>=60 mL/min/1.73m^2); Free T3 2.78 pg/mL (2.18-3.98); Glucose 94 mg/dL (74-106); HDL Cholesterol 44 mg/dL (40-60); LDL Cholesterol Calculated 100.6 mg/dL; Potassium 4.5 mmol/L (3.5-5.1); Sodium 144 mmol/L (136-145); Thyroid Stimulating Hormone 7.275 uIU/mL (0.358-3.740); Total Protein 6.3 g/dL (6.4-8.2); Triglycerides 112 mg/dL (<=150); VLDL CHOLESTEROL 22.4 mg/dL
== END 2024-04-18 07:18 | disposition home or self-care (01) ==
LOC: LAB 07:18
PROVIDERS: PCP Family Medicine; Visit Provider Family Medicine
DX: Z00.00 Encounter for general adult medical examination without abnormal findings (principal)
CPT/HCPCS: 36415; 80053; 80061; 83036; 83540; 84436; 84443; 84481; 85025

== ENCOUNTER 2024-04-27 07:13 | Outpatient (OUT) | payer BC, SELFPAY ==
--- OUTSIDE RECORDS SUMMARY | 2024-04-27 07:15 | XMS_ITS | CCD ---
Author Organization [facility] Care Team Providers Care Cushion Maker Name Role Phone KEL BUENO Unavailable Unavailable RYAN AREVALO Unavailable Unavailable ALENID, AURORA HUSSAM Unavailable Unavailabl e RACHELE POST Unavailable Unavailable [place] Unavailable Unavailable UNKNOWN, PROVIDER Unavailable Unavailable MEERA [...] Unavailable HOY ., DR DAVIS Consulting Unavailable SHUNK, DR MEERA Maria Consulting Unavailable BILLY, DR CORINA Nichole Consulting Unavailable Ryan Arevalo MD Primary Care Provider [phone] RYAN AREVALO Primary Care Unavailable ELVIRA [...] (Original) docusate sodium 50 mg / sennosides, senior living 8.6 mg oral tablet (1 source) Start: [...] disease (1 source) Atherosclerotic heart disease of [place] coronary artery with unstable angina pectoris; Translations: [ATHSCL HEART DISEASE OF [place] COR ART W UNSTABLE ANG PCTRS] Onset: [...] Facility CNCOon 06-02-2023 CNCO Letter Text Normal [facility] CNPNon 06-02-2023 CNPN Telephone (CARDMN) DACIA FINLEY ([id number]) 1960 F Date Time Provider Department 06/02/23 CELIA MATOS ([facility]) CARDMN During your visit [...] Status:Closed by CELIA LILLY on 06/02/23 Normal [facility] FREE T3on 09-09-2022 FREE T3 3.53 pg/mlL Normal 2.18-3.98 [facility] Comment on above: Performed By: #### T 4, FT3, TSH #### [facility] [address] [place] [address] Dr. Guevara Abraham T4on 09-09-2022 T4 [Mass/Vol] 10.20 ug/dL Normal 4.80-13.90 [facility] Comment on above: Performed By: #### T 4, FT3, TSH #### [facility] [address] [place] [address] Dr. Guevara Abraham TSHon 09-09-2022 TSH 7.509 uIU/mL Critically high 0.358-3.74 0 [facility] Comment on above: Performed By: #### T 4, FT3, TSH #### [facility] [address] [place] [address] Dr. Guevara Abraham OCC BLD IMMUNO SCREENon 08-06 OCCULT BLOOD Negative Normal NEGATIVE [facility] Comment on above: Performed By: #### A NAIFA #### [facility] [address] [place] [address] Dr. Guevara Abraham CODI by IFAon 08-19-2022 Antinuclear Antibodies, IFA Negative Normal [facility] Comment on above: Result Comment: Nega tive <1:80 Borderline 1:80 Positive >1:80 ICAP nomenclature: AC-0 For more information about Hep-2 cell patterns use ANApatterns.org, the official website for the International Consensus on Antinuclear Antibody (CODI) Patterns (ICAP). Performed By: #### A NAIFA #### [facility] [address] [place] [address] Dr. Guevara Abraham ANTISTREPTOLYSIN O AB (ASO)o n 08-16-2022 Antistreptolysin O Ab 248.1 IU/mL Critically high 0.0-200.0 [facility] Comment on above: Performed By: #### A SOAB #### [facility] [address] [place] [address] Dr. Guevara Abraham C-REACTIVE PROTEINS (HS)on 0 08-16-2022 C-Reactive Protein, Cardiac 0.32 mg/L Normal 0.00-3.00 [facility] Comment on above: Result Comment: Rela tive Risk for Future Cardiovascular Event Low <1.00 Average 1.00 - 3.00 High >3.00 Performed By: #### C RPHS #### [facility] [address] [place] [address] Dr. Guevara Abraham INSULINon 08-16-2022 Insulin 11.3 uIU/mL Normal 2.6-24.9 [facility] Comment on above: Performed By: #### I NSULIN ####[facility] [address] [place], [place] [address]DrCain Abraham RHEUMATOID FACTORon 08-17-19 23 RA Latex Turbid. <10.0 Normal <14.0 [facility] Comment on above: Performed By: #### R F #### [facility] [address] [place] [address] Dr. Guevara Abraham CBC AUTO DIFFon 08-15-2022 BASO # 0.1 103/ul Normal 0.0-0.1 [facility] Comment on above: Performed By: #### C BC ####[facility] [address] [place], [place] [address]Dr. Guevara Abraham Basophils/100 WBC (Bld) 0.6 % Normal 0.2-2.0 [facility] Comment on above: Performed By: #### C BC ####[facility] [address] [place], [place] [address]DrCain Abraham EO # 0.2 103/ul Normal 0.0-0.7 [facility] Comment on above: Performed By: #### C BC ####[facility] [address] [place], [place] [address]DrCain Abraham Eosinophils/100 WBC (Bld) 1.9 % Normal 0.9-7.0 [facility] Comment on above: Performed By: #### C BC ####[facility] [address] [place], [place] [address]DrCain Abraham Erythrocyte distribution width (RBC) [Ratio] 12.8 % Normal 11.0-15.0 [facility] Comment on above: Performed By: #### C BC ####[facility] [address] [place] [address]Dr. Zabrinameño Abraham Hematocrit (Bld) [Volume fraction] 43.1 % Normal 36.0-48.0 [facility] Comment on above: Performed By: #### C BC ####[facility] [address] [place] [address]Dr. Guevara Abraham Hemoglobin (Bld) [Mass/Vol] 14.5 g/dL Normal 12.0-16.0 [facility] Comment on above: Performed By: #### C BC ####[facility] [address] [place], [place] [address]Dr. Guevara Abraham IG # 0.03 10e3/ul Normal 0.00-0.03 [facility] Comment on above: Performed By: #### C BC ####[facility] [address] [place], [place] [address]Dr. Guevara Abraham IG % 0.3 % Normal 0.0-0.5 [facility] Comment on above: Performed By: #### C BC ####[facility] [address] [place], [place] [address]Dr. Guevara Abraham LYMPH # 3.3 103/ul Normal 1.2-3.8 [facility] Comment on above: Performed By: #### C BC ####[facility] G[address]is[address]wc[address] [place], [place] [address]Dr. Guevara Abraham Lymphocytes/100 WBC (Bld) 34.2 % Normal 20.5-60.0 [facility] Comment on above: Performed By: #### C BC ####[facility] [address] [place] [address]Dr. Guevara Abraham MANUAL DIFF REQ NO Normal [facility] Comment on above: Performed By: #### C BC ####[facility] [address] [place], [place] [address]DrCain Abraham MCH (RBC) [Entitic mass] 31.4 pg Normal 26.7-34.0 [facility] Comment on above: Performed By: #### C BC ####[facility] [address] [place], [place] [address]Dr. Guevara Abraham MCHC (RBC) [Mass/Vol] 33.6 g/dL Normal 29.9-35.2 [facility] Comment on above: Performed By: #### C BC ####[facility] [address] [place] [address]Dr. Guevara Abraham MCV (RBC) [Entitic vol] 93.3 fL Normal 81.0-99.0 [facility] Comment on above: Performed By: #### C BC ####[facility] [address] [place], [place] [address]Dr. Guevara Abraham MONO # 0.7 103/ul Normal 0.3-0.8 [facility] Comment on above: Performed By: #### C BC ####[facility] [address] [place], [place] [address]Dr. Guevara Abraham Monocytes/100 WBC (Bld) 7.3 % Normal 1.7-12.0 [facility] Comment on above: Performed By: #### C BC ####[facility] [address] [place], [place] [address]Dr. Guevara Abraham NEUT # 5.3 103/ul Normal 1.4-6.5 [facility] Comment on above: Performed By: #### C BC ####[facility] [address] [place], [place] [address]Dr. Guevara Abraham Neutrophils/100 WBC (Bld) 55.7 % Normal 43.0-75.0 [facility] Comment on above: Performed By: #### C BC ####[facility] [address] [place], [place] [address]Dr. Guevara Abraham Platelet mean volume (Bld) [Entitic vol] 11.5 fL Normal 9.5-13.5 [facility] Comment on above: Performed By: #### C BC ####[facility] [address] [place], [place] [address]Dr. Guevara Abraham PLT 211 103/ul Normal 150-450 [facility] Comment on above: Performed By: #### C BC ####[facility] [address] [place], [place] [address]Dr. Guevara Abraham RBC 4.62 106/ul Normal 4.20-5.40 [facility] Comment on above: Performed By: #### C BC ####[facility] [address] [place], [place] [address]Bi. Guevara Abraham WBC 9.5 103/ul Normal 4.0-11.0 [facility] Comment on above: Performed By: #### C BC ####[facility] [address] [place] [address]Dr. Guevara Abraham CRPon 08-15-2022 CRP [Mass/Vol] mg/L Normal <=1.0 [facility] Comment on above: Performed By: #### C RP, T7, CMP, URIC, LIPID, TSH ####[facility] [address] [place], [place] [address]Hb. Gue[address]a Abraham CT LUNG CANCER SCREENINGon 0 [...] CORINA CERVANTES Date: 2022-08-15 09:25 Normal [facility] FREE THYROXINE INDEX T7on FTI 3.00 Normal 1.30-4.50 [facility] Comment on above: Performed By: #### C RP, T7, CMP, URIC, LIPID, TSH ####[facility] [address] [place] [address]Dr. Guevara Abraham T3U 33.0 % Normal 30.0-39.0 [facility] Comment on above: Performed By: #### C RP, T7, CMP, URIC, LIPID, TSH ####[facility] [address] [place] [address]Dr. Guevara Abraham T4 [Mass/Vol] 9.10 ug/dL Normal 4.80-13.90 [facility] Comment on above: Performed By: #### C RP, T7, CMP, URIC, LIPID, TSH ####[facility] [address] [place] [address]DrCain Abraham GLYCOHEMOGLOBIN A1Con 2022 ADA RECOMMENDATION SEE BELOW Normal [facility] Comment on above: Result Comment: ADA RECOMMENDED LIMIT 4.0 - 6.0 ADA THERAPEUTIC TARGET < 7.0 ACTION SUGGESTED > 7.0 Performed By: #### A 1C ####[facility] [address] [place] [address]Dr. Guevara Abraham Glucose [Mass/Vol] 120 mg/dL Normal [facility] Comment on above: Performed By: #### A 1C ####[facility] [address] [place] [address]Dr. Guevara Abraham HbA1c (Bld) [Mass fraction] 5.8 % Normal 4.5-6.2 [facility] Comment on above: Performed By: #### A 1C ####[facility] [address] [place] [address]DrCain Abraham IRONon 08-15-2022 Iron [Mass/Vol] 124.0 ug/dL Normal 50.0-170.0 [facility] Comment on above: Performed By: #### I MIAH #### [facility] [address] [place] [address] [address] Guevara Abraham LIPID PROFILEon 08-15-2022 CHOL-HDL RATIO NORM SEE BELOW Normal [facility] Comment on above: Result Comment: 3.3 - 4.4 LOW RISK 4.4 - 7.1 AVERAGE RISK 7.1 - 11.0 MODERATE RISK >11.0 HIGH RISK Performed By: #### C RP, T7, CMP, URIC, LIPID, TSH ####[facility] [address] [place] [address]Dr. Guevara Abraham Cholesterol [Mass/Vol] 132 mg/dL Normal <=200 [facility] Comment on above: Performed By: #### C RP, T7, CMP, URIC, LIPID, TSH ####[facility] [address] [place] [address]Dr. Guevara Abraham Cholesterol in HDL [Mass/Vol] 44 mg/dL Normal 40-60 [facility] Comment on above: Performed By: #### C RP, T7, CMP, URIC, LIPID, TSH ####[facility] [address] [place] [address]Dr. Guevara Abraham Cholesterol in LDL [Mass/Vol] 70.8 mg/dL Normal [facility] Comment on above: Performed By: #### C RP, T7, CMP, URIC, LIPID, TSH ####[facility] [address] [place] [address]Dr. Guevara Abraham Cholesterol.total /Cholesterol in HDL [Mass ratio] 3.0 {ratio} Normal [facility] Comment on above: Performed By: #### C RP, T7, CMP, URIC, LIPID, TSH ####[facility] [address] [place] [address]Dr. Guevara Abraham HDL NORMAL > or = 60 mg/dl - LO W CARDIOVASCULAR RISK <40 mg/dl - HIGH CARDIOVASCULAR RISK Normal [facility] Comment on above: Performed By: #### C RP, T7, CMP, URIC, LIPID, TSH ####[facility] [address] [place] [address]Dr. Guevara Abraham LDL CALC NORMAL SEE BELOW Normal [facility] Comment on above: Result Comment: <100 mg/dl OPTIMAL 100 - 129 mg/dl NEAR OR ABOVE OPTIMAL 130 - 159 mg/dl BORDERLINE HIGH 160 - 189 mg/dl HIGH >190 mg/dl VERY HIGH Performed By: #### C RP, T7, CMP, URIC, LIPID, TSH ####[facility] [address] [place], [place] [address]Lq. Guevara Abraham Triglyceride [Mass/Vol] 86 mg/dL Normal <=150 [facility] Comment on above: Performed By: #### C RP, T7, CMP, URIC, LIPID, TSH ####[facility] [address] [place], [place] [address]Xt. Guevara Abraham VLDL CALC 17.2 mg/dL Normal [facility] Comment on above: Performed By: #### C RP, T7, CMP, URIC, LIPID, TSH ####[facility] [address] [place], [place] [address]Fc. Guevara Abraham MG MAMM SCREEN 3D GRICEL CADon 08-15-2022 MG MAMM SCREEN 3D GRICEL CAD Patient: DACIA FINLEY Exam Date: 08/15/2022 : 1960 Gender:F Ordering : DR RYAN AREVALO . Admission #: [id number] Family : Order #: [id number] CLICK HERE TO VIEW EXAM RADIOLOGY REPORT PROCEDURE: MAMMOGRAM SCREENING 3D BILATERAL CAD COMPARISON: MG MAMM GRICEL SCRN W CAD DIG, 07/04/2015. INDICATIONS: Screening mammography Calculator Name NCI Breast Cancer Risk Assessment Tool 5 Year Breast Cancer Risk Not Reported. Lifetime Breast Cancer Risk Not Reported. Personal Breast Cancer No Personal Ovarian Cancer No Treatments None Family Cancers None LOCATION: [facility] BREAST COMPOSITION: Extremely dense, which lowers [...] MD on 08/15/2022 at 09:49 Normal [facility] PROF 14(COMP METB)on 023 Albumin [Mass/Vol] 3.9 g/dL Normal 3.4-5.0 [facility] Comment on above: Performed By: #### C RP, T7, CMP, URIC, LIPID, TSH ####[facility] [address] [place] [address]Dr. Guevara Abraham Albumin/Globulin [Mass ratio] 1.2 {ratio} Normal [facility] Comment on above: Performed By: #### C RP, T7, CMP, URIC, LIPID, TSH ####[facility] [address] [place] [address]Dr. Guevara Abraham ALP [Catalytic activity/Vol] 66 U/L Normal 46-116 [facility] Comment on above: Performed By: #### C RP, T7, CMP, URIC, LIPID, TSH ####[facility] [address] [place] [address]Dr. Guevara Abraham ALT [Catalytic activity/Vol] 22 U/L Normal 14-59 [facility] Comment on above: Performed By: #### C RP, T7, CMP, URIC, LIPID, TSH ####[facility] [address] [place] [address]Dr. Guevara Abraham Anion gap [Moles/Vol] 12.9 mmol/L Normal [facility] Comment on above: Performed By: #### C RP, T7, CMP, URIC, LIPID, TSH ####[facility] [address] [place] [address]Dr. Guevara Abraham AST [Catalytic activity/Vol] 14 U/L Critically low 15-37 [facility] Comment on above: Performed By: #### C RP, T7, CMP, URIC, LIPID, TSH ####[facility] [address] [place] [address]Dr. Guevara Abraham Bilirubin [Mass/Vol] 0.4 mg/dL Normal 0.2-1.0 [facility] Comment on above: Performed By: #### C RP, T7, CMP, URIC, LIPID, TSH ####[facility] [address] [place] [address]Dr. Guevara Abraham Calcium [Mass/Vol] 8.8 mg/dL Normal 8.5-10.1 [facility] Comment on above: Performed By: #### C RP, T7, CMP, URIC, LIPID, TSH ####[facility] [address] [place] [address]Dr. Guevara Abraham Chloride [Moles/Vol] 107 mmol/L Normal 98-107 [facility] Comment on above: Performed By: #### C RP, T7, CMP, URIC, LIPID, TSH ####[facility] [address] [place] [address]Dr. Guevara Abraham CO2 [Moles/Vol] 26.8 mmol/L Normal 21.0-32.0 [facility] Comment on above: Performed By: #### C RP, T7, CMP, URIC, LIPID, TSH ####[facility] [address] [place] [address]Dr. Guevara Abraham Creatinine [Mass/Vol] 0.85 mg/dL Normal 0.55-1.02 [facility] Comment on above: Performed By: #### C RP, T7, CMP, URIC, LIPID, TSH ####[facility] [address] [place] [address]Dr. Guevara Abraham EGFR-AF ANGOLAN >60 Normal >=60 [facility] Comment on above: Performed By: #### C RP, T7, CMP, URIC, LIPID, TSH ####[facility] [address] [place] [address]Dr. Guevara Abraham EGFR-NON AF ANGOLAN >60 Normal >=60 [facility] Comment on above: Performed By: #### C RP, T7, CMP, URIC, LIPID, TSH ####[facility] [address] [place] [address]Dr. Guevara Abraham Globulin (S) [Mass/Vol] 3.2 g/dL Normal [facility] Comment on above: Performed By: #### C RP, T7, CMP, URIC, LIPID, TSH ####[facility] [address] [place] [address]Dr. Guevara Abraham Glucose [Mass/Vol] 96 mg/dL Normal 74-106 [facility] Comment on above: Performed By: #### C RP, T7, CMP, URIC, LIPID, TSH ####[facility] [address] [place] [address]Dr. Guevara Abraham Potassium [Moles/Vol] 3.7 mmol/L Normal 3.5-5.1 [facility] Comment on above: Performed By: #### C RP, T7, CMP, URIC, LIPID, TSH ####[facility] [address] [place] [address]Dr. Guevara Abraham Protein [Mass/Vol] 7.1 g/dL Normal 6.4-8.2 [facility] Comment on above: Performed By: #### C RP, T7, CMP, URIC, LIPID, TSH ####[facility] [address] [place] [address]Dr. Guevara Abraham Sodium [Moles/Vol] 143 mmol/L Normal 136-145 [facility] Comment on above: Performed By: #### C RP, T7, CMP, URIC, LIPID, TSH ####[facility] [address] [place] [address]Dr. Guevara Abraham Urea nitrogen [Mass/Vol] 13.0 mg/dL Normal 7.0-18.0 [facility] Comment on above: Performed By: #### C RP, T7, CMP, URIC, LIPID, TSH ####[facility] [address] [place] [address]Dr. Guevara Abraham Urea nitrogen/Creatini ne [Mass ratio] 15.3 mg/mg Normal [facility] Comment on above: Performed By: #### C RP, T7, CMP, URIC, LIPID, TSH ####[facility] [address] [place] [address]Dr. Guevara Abraham TSHon 08-15-2022 TSH 5.411 uIU/mL Critically high 0.358-3.74 0 [facility] Comment on above: Performed By: #### C RP, T7, CMP, URIC, LIPID, TSH ####[facility] [address] [place] [address]Dr. Guevara Abraham URIC ACID SERUMon 08-15-2022 Urate [Mass/Vol] 3.1 mg/dL Normal 2.6-6.0 [facility] Comment on above: Performed By: #### C RP, T7, CMP, URIC, LIPID, TSH ####[facility] [address] [place], [place] [address]BdCain Abraham XR DEXA BONE DENSITYon 08-15 XR [...] MEERA HODGE Date: 2022-08-15 09:00 Normal [facility] XR LSPINE MIN 4 VIEWSon 08-06 [...] CORINA CERVANTES Date: 2022-08-15 09:04 Normal [facility] MR head/brain wo conon 07-19 MR head/brain wo con [facility] [place] [address] MRI Report Signed Patient: Dacia iFnley MR#: [id number] : 1960 Acct:[id number] Age/Sex: 60 / F ADM Date: 07/19/21 Loc: [facility] Room: Type: [facility] Attending Dr: Himanshu Acosta DO [...] Jack Giles M.D.07/19/2021 1:11 PM Dictation Location: [place] [address] Transcribed By: [facility] 07/19/21 1311 Dictated By: Jack Giles II, MD 07/19/21 1302 Signed By: 07/19/21 1311 Normal [facility] Physician Referralon 021 Physician Referral [id number] Normal [facility] Basic Metabolic Profon 10-26 (cont.) Normal [facility] Comment on above: Result Comment: Aver age GFR for 50-59 years old: 93 mL/min/1.73sq m Chronic Kidney Disease: <60 mL/min/1.73sq m Kidney failure: <15 mL/min/1.73sq m eGFR calculated using average adult body mass. Additional eGFR calculator available at: http://www.[employer]/multiple_crcl_2012.htm Performed By: #### C DP, BMP, CRP, PRCAL #### [facility] [address] [place] [address] Loom Overhauler: Sabas Lamb MD Anion gap [Moles/Vol] 9 mmol/L Normal 9-17 [facility] Comment on above: Performed By: #### C DP, BMP, CRP, PRCAL #### [facility] [employer] [address] [place] [address] Loom Overhauler: Sabas Lamb MD Calcium [Mass/Vol] 8.3 mg/dL Low 8.6-10.4 [facility] Comment on above: Performed By: #### C DP, BMP, CRP, PRCAL #### [facility] [address] [place] [address] Loom Overhauler: Sabas Lamb MD Chloride [Moles/Vol] 100 mmol/L Normal 98-107 [facility] Comment on above: Performed By: #### C DP, BMP, CRP, PRCAL #### [facility] [address] [place] [address] Loom Overhauler: Sabas Lamb MD CO2 [Moles/Vol] 26 mmol/L Normal 20-31 [facility] Comment on above: Performed By: #### C DP, BMP, CRP, PRCAL #### [employer] [address] [place] [address] Loom Overhauler: Sabas Lamb MD Creatinine [Mass/Vol] 0.26 mg/dL Low 0.50-0.90 [facility] Comment on above: Performed By: #### C DP, BMP, CRP, PRCAL #### [address] [address] Loom Overhauler: Sabas Lamb MD GFR, Amer >60 Normal >60 [facility] Comment on above: Performed By: #### C DP, BMP, CRP, PRCAL #### [facility] [employer] [address] [place] [address] Loom Overhauler: Sabas Lamb MD GFR,non Amer >60 Normal >60 [facility] Comment on above: Performed By: #### C DP, BMP, CRP, PRCAL #### [facility] [employer] [address] [place] [address] Loom Overhauler: Sabas Lamb MD Glucose [Mass/Vol] 112 mg/dL High 70-99 [facility] Comment on above: Performed By: #### C DP, BMP, CRP, PRCAL #### [address] [address] [employer] Overhauler: Sabas Lamb MD Potassium [Moles/Vol] 3.1 mmol/L Low 3.7-5.3 [facility] Comment on above: Performed By: #### C DP, BMP, CRP, PRCAL #### [facility] [employer] [address] [place] [address] Loom Overhauler: Sabas Lamb MD Sodium [Moles/Vol] 135 mmol/L Normal 135-144 [facility] Comment on above: Performed By: #### C DP, BMP, CRP, PRCAL #### [facility] [employer] [address] [place] [address] Loom Overhauler: Sabas Lamb MD Urea nitrogen [Mass/Vol] 6 mg/dL Normal 6-20 [facility] Comment on above: Performed By: #### C DP, BMP, CRP, PRCAL #### [facility] [employer] [address] [place] [address] Loom Overhauler: Sabas Lamb MD BUN/CRE Ratio NOT REPORTED Normal 9-20 [facility] Comment on above: Performed By: #### C DP, BMP, CRP, PRCAL #### [address] [address] [employer]oom Overhauler: Sabas Lamb MD Staging: NOT REPORTED Normal [facility] Comment on above: Performed By: #### C DP, BMP, CRP, PRCAL #### [place] [address] [employer]: Sabas Lamb MD CBC with Diffon 10-26-2018 Abs. Basophil <0.03 Normal 0.00-0.20 [facility] Comment on above: Performed By: #### C DP, BMP, CRP, PRCAL #### [place] [address] [employer]: Sabas Lamb MD Abs.Imm.Granulocy te 0.03 k/uL Normal 0.00-0.30 [facility] Comment on above: Performed By: #### C DP, BMP, CRP, PRCAL #### [place] [address] [employer]: Sabas Lamb MD Abs.Neutrophil (Seg) 7.04 k/uL Normal 1.50-8.10 [facility] Comment on above: Performed By: #### C DP, BMP, CRP, PRCAL #### [place] [address] [employer]: Sabas Lamb MD Basophils/100 WBC (Bld) 0 % Normal 0-2 [facility] Comment on above: Performed By: #### C DP, BMP, CRP, PRCAL #### [address] [address] [employer]uler: Sabas Lamb MD Eosinophils (Bld) [#/Vol] 0.08 10*3/uL Normal 0.00-0.44 [facility] Comment on above: Performed By: #### C DP, BMP, CRP, PRCAL #### [address] [address] [employer]uler: Sabas Lamb MD Eosinophils/100 WBC (Bld) 1 % Normal 1-4 [facility] Comment on above: Performed By: #### C DP, BMP, CRP, PRCAL #### [place] [address] [employer]: Sabas Lamb MD Erythrocyte distribution width (RBC) [Ratio] 12.0 % Normal 11.8-14.4 [facility] Comment on above: Performed By: #### C DP, BMP, CRP, PRCAL #### [place] [address] [employer]: Sabas Lamb MD Hematocrit (Bld) [Volume fraction] 32.3 % Low 36.3-47.1 [facility] Comment on above: Performed By: #### C DP, BMP, CRP, PRCAL #### [place] [address] [employer]: Sabas Lamb MD Hemoglobin (Bld) [Mass/Vol] 10.5 g/dL Low 11.9-15.1 [facility] Comment on above: Performed By: #### C DP, BMP, CRP, PRCAL #### [facility] [address] [place] [address] [employer] Overhauler: Sabas Lamb MD Immature granulocytes (Bld) [#/Vol] 0 % Normal 0 [facility] Comment on above: Performed By: #### C DP, BMP, CRP, PRCAL #### [facility] [address] [place] [address] [employer]: Sabas Lamb MD Lymphocytes (Bld) [#/Vol] 1.45 10*3/uL Normal 1.10-3.70 [facility] Comment on above: Performed By: #### C DP, BMP, CRP, PRCAL #### [address] [address] [employer]uler: Sabas Lamb MD Lymphocytes/100 WBC (Bld) 16 % Low 24-43 [facility] Comment on above: Performed By: #### C DP, BMP, CRP, PRCAL #### [place] [address] [employer]: Sabas Lamb MD MCH (RBC) [Entitic mass] 31.3 pg Normal 25.2-33.5 [facility] Comment on above: Performed By: #### C DP, BMP, CRP, PRCAL #### [place] [address] [employer]: Sabas Lamb MD MCHC (RBC) [Mass/Vol] 32.5 g/dL Normal 28.4-34.8 [facility] Comment on above: Performed By: #### C DP, BMP, CRP, PRCAL #### [address] [address] [employer]: Sabas Lamb MD MCV (RBC) [Entitic vol] 96.1 fL Normal 82.6-102.9 [facility] Comment on above: Performed By: #### C DP, BMP, CRP, PRCAL #### [place] [address] [employer]: Sabas Lamb MD Monocytes (Bld) [#/Vol] 0.54 10*3/uL Normal 0.10-1.20 [facility] Comment on above: Performed By: #### C DP, BMP, CRP, PRCAL #### [address] [address] [employer]: Sabas Lamb MD Monocytes/100 WBC (Bld) 6 % Normal 3-12 [facility] Comment on above: Performed By: #### C DP, BMP, CRP, PRCAL #### [address] [address] [employer]: Sabas Lamb MD Neutrophil (Seg) 77 % High 36-65 [facility] Comment on above: Performed By: #### C DP, BMP, CRP, PRCAL #### [address] [address] [employer]: Sabas Lamb MD NRBC Automated 0.0 per 100 WBC Normal 0.0 [facility] Comment on above: Performed By: #### C DP, BMP, CRP, PRCAL #### [address] [address] [employer]: Sabas Lamb MD Platelet mean volume (Bld) [Entitic vol] 11.7 fL Normal 8.1-13.5 [facility] Comment on above: Performed By: #### C DP, BMP, CRP, PRCAL #### [address] [address] [employer]: Sabas Lamb MD Platelets (Bld) [#/Vol] 261 10*3/uL Normal 138-453 [facility] Comment on above: Performed By: #### C DP, BMP, CRP, PRCAL #### [address] [address] [employer]: Sabas Lamb MD RBC (Bld) [#/Vol] 3.36 10*6/uL Low 3.95-5.11 [facility] Comment on above: Performed By: #### C DP, BMP, CRP, PRCAL #### [address] [address] [employer]: Sabas Lamb MD WBC (Bld) [#/Vol] 9.2 10*3/uL Normal 3.5-11.3 [facility] Comment on above: Performed By: #### C DP, BMP, CRP, PRCAL #### [address] [address] [employer]: Sabas Lamb MD Auto Diff Performed NOT REPORTED Normal [facility] Comment on above: Performed By: #### C DP, BMP, CRP, PRCAL #### [address] [address] [employer]: Sabas Lamb MD Platelets (Bld) [#/Vol] NOT REPORTED Normal [facility] Comment on above: Performed By: #### C DP, BMP, CRP, PRCAL #### [address] [address] [employer]: Sabas Lamb MD RBC morphology finding Nom (Bld) NOT REPORTED Normal [facility] Comment on above: Performed By: #### C DP, BMP, CRP, PRCAL #### [address] [address] [employer]: Sabas Lamb MD WBC Morphology NOT REPORTED Normal [facility] Comment on above: Performed By: #### C DP, BMP, CRP, PRCAL #### [address] [address] [employer]: Sabas Lamb MD Basic Metabolic Profon 10-25 (cont.) Normal [facility] Comment on above: Result Comment: Aver age GFR for 50-59 years old: 93 mL/min/1.73sq m Chronic Kidney Disease: <60 mL/min/1.73sq m Kidney failure: <15 mL/min/1.73sq m eGFR calculated using average adult body mass. Additional eGFR calculator available at: http://www.[employer]/multiple_crcl_2011.htm Performed By: #### C DP, BMP, CRP, PRCAL #### [facility] [address] [place] [address] [employer]uler: Sabas Lamb MD Anion gap [Moles/Vol] 9 mmol/L Normal 9-17 [facility] Comment on above: Performed By: #### C DP, BMP, CRP, PRCAL #### [address] [address] [employer]: Sabas Lamb MD Calcium [Mass/Vol] 8.5 mg/dL Low 8.6-10.4 [facility] Comment on above: Performed By: #### C DP, BMP, CRP, PRCAL #### [address] [address] [employer]: Sabas Lamb MD Chloride [Moles/Vol] 100 mmol/L Normal 98-107 [facility] Comment on above: Performed By: #### C DP, BMP, CRP, PRCAL #### [facility] [address] [place] [address] [employer]: Sabas Lamb MD CO2 [Moles/Vol] 28 mmol/L Normal 20-31 [facility] Comment on above: Performed By: #### C DP, BMP, CRP, PRCAL #### [facility] [address] [place] [address] [employer]: Sabas Lamb MD Creatinine [Mass/Vol] 0.31 mg/dL Low 0.50-0.90 [facility] Comment on above: Performed By: #### C DP, BMP, CRP, PRCAL #### [facility] [address] [place] [address] [employer]: Sabas Lamb MD GFR, Amer >60 Normal >60 [facility] Comment on above: Performed By: #### C DP, BMP, CRP, PRCAL #### [facility] [address] [place] [address] [employer]: Sabas Lamb MD GFR,non Amer >60 Normal >60 [facility] Comment on above: Performed By: #### C DP, BMP, CRP, PRCAL #### [address] [address] [employer]: Sabas Lamb MD Glucose [Mass/Vol] 111 mg/dL High 70-99 [facility] Comment on above: Performed By: #### C DP, BMP, CRP, PRCAL #### [address] [address] [employer]: Sabas Lamb MD Potassium [Moles/Vol] 3.4 mmol/L Low 3.7-5.3 [facility] Comment on above: Performed By: #### C DP, BMP, CRP, PRCAL #### [address] [address] [employer]: Sabas Lamb MD Sodium [Moles/Vol] 137 mmol/L Normal 135-144 [facility] Comment on above: Performed By: #### C DP, BMP, CRP, PRCAL #### [facility] [address] [place] [address] [employer]: Sabas Lamb MD Urea nitrogen [Mass/Vol] 9 mg/dL Normal 6-20 [facility] Comment on above: Performed By: #### C DP, BMP, CRP, PRCAL #### [facility] [address] [place] [address] [employer]: Sabas Lamb MD BUN/CRE Ratio NOT REPORTED Normal -20 [facility] Comment on above: Performed By: #### C DP, BMP, CRP, PRCAL #### [facility] [address] [place] [address] [employer]: Sabas Lamb MD Staging: NOT REPORTED Normal [facility] Comment on above: Performed By: #### C DP, BMP, CRP, PRCAL #### [place] [address] [employer]: Sabas Lamb MD CBC with Diffon 10-25-2018 Abs. Basophil 0.03 k/uL Normal 0.00-0.20 [facility] Comment on above: Performed By: #### C DP, BMP, CRP, PRCAL #### [place] [address] [employer]: Sabas Lamb MD Abs.Imm.Granulocy te 0.05 k/uL Normal 0.00-0.30 [facility] Comment on above: Performed By: #### C DP, BMP, CRP, PRCAL #### [place] [address] [employer]uler: Sabas Lamb MD Abs.Neutrophil (Seg) 10.20 k/uL High 1.50-8.10 [facility] Comment on above: Performed By: #### C DP, BMP, CRP, PRCAL #### [place] [address] [employer]: Sabas Lamb MD Basophils/100 WBC (Bld) 0 % Normal 0-2 [facility] Comment on above: Performed By: #### C DP, BMP, CRP, PRCAL #### [place] [address] [employer]uler: Sabas Lamb MD Eosinophils (Bld) [#/Vol] 0.04 10*3/uL Normal 0.00-0.44 [facility] Comment on above: Performed By: #### C DP, BMP, CRP, PRCAL #### [place] [address] [employer]: Sabas Lamb MD Eosinophils/100 WBC (Bld) 0 % Low 1-4 [facility] Comment on above: Performed By: #### C DP, BMP, CRP, PRCAL #### [address] [address] [employer]: Sabas Lamb MD Erythrocyte distribution width (RBC) [Ratio] 11.9 % Normal 11.8-14.4 [facility] Comment on above: Performed By: #### C DP, BMP, CRP, PRCAL #### [place] [address] [employer]: Sabas Lamb MD Hematocrit (Bld) [Volume fraction] 31.5 % Low 36.3-47.1 [facility] Comment on above: Performed By: #### C DP, BMP, CRP, PRCAL #### [place] [address] [employer]: Sabas Lamb MD Hemoglobin (Bld) [Mass/Vol] 10.4 g/dL Low 11.9-15.1 [facility] Comment on above: Performed By: #### C DP, BMP, CRP, PRCAL #### [address] [address] [employer]: Sabas Lamb MD Immature granulocytes (Bld) [#/Vol] 0 % Normal 0 [facility] Comment on above: Performed By: #### C DP, BMP, CRP, PRCAL #### [address] [address] [employer]: Sabas Lamb MD Lymphocytes (Bld) [#/Vol] 0.96 10*3/uL Low 1.10-3.70 [facility] Comment on above: Performed By: #### C DP, BMP, CRP, PRCAL #### [address] [address] [employer]uler: Sabas Lamb MD Lymphocytes/100 WBC (Bld) 8 % Low 24-43 [facility] Comment on above: Performed By: #### C DP, BMP, CRP, PRCAL #### [address] [address] [employer]: Sabas Lamb MD MCH (RBC) [Entitic mass] 31.9 pg Normal 25.2-33.5 [facility] Comment on above: Performed By: #### C DP, BMP, CRP, PRCAL #### [address] [address] [employer]uler: Sabas Lamb MD MCHC (RBC) [Mass/Vol] 33.0 g/dL Normal 28.4-34.8 [facility] Comment on above: Performed By: #### C DP, BMP, CRP, PRCAL #### [address] [address] [employer]uler: Sabas Lamb MD MCV (RBC) [Entitic vol] 96.6 fL Normal 82.6-102.9 [facility] Comment on above: Performed By: #### C DP, BMP, CRP, PRCAL #### [address] [address] [employer]uler: Sabas Lamb MD Monocytes (Bld) [#/Vol] 0.75 10*3/uL Normal 0.10-1.20 [facility] Comment on above: Performed By: #### C DP, BMP, CRP, PRCAL #### [address] [address] [employer]: Sabas Lamb MD Monocytes/100 WBC (Bld) 6 % Normal 3-12 [facility] Comment on above: Performed By: #### C DP, BMP, CRP, PRCAL #### [address] [address] [employer]: Sabas Lamb MD Neutrophil (Seg) 86 % High 36-65 [facility] Comment on above: Performed By: #### C DP, BMP, CRP, PRCAL #### [address] [address] [employer]uler: Sabas Lamb MD NRBC Automated 0.0 per 100 WBC Normal 0.0 [facility] Comment on above: Performed By: #### C DP, BMP, CRP, PRCAL #### [address] [address] [employer]uler: Sabas Lamb MD Platelet mean volume (Bld) [Entitic vol] 11.4 fL Normal 8.1-13.5 [facility] Comment on above: Performed By: #### C DP, BMP, CRP, PRCAL #### [address] [address] [employer]uler: Sabas Lamb MD Platelets (Bld) [#/Vol] 238 10*3/uL Normal 138-453 [facility] Comment on above: Performed By: #### C DP, BMP, CRP, PRCAL #### [address] [address] [employer]uler: Sabas Lamb MD RBC (Bld) [#/Vol] 3.26 10*6/uL Low 3.95-5.11 [facility] Comment on above: Performed By: #### C DP, BMP, CRP, PRCAL #### [address] [address] [employer]: Sabas Lamb MD WBC (Bld) [#/Vol] 12.0 10*3/uL High 3.5-11.3 [facility] Comment on above: Performed By: #### C DP, BMP, CRP, PRCAL #### [address] [address] [employer]: Sabas Lamb MD Auto Diff Performed NOT REPORTED Normal [facility] Comment on above: Performed By: #### C DP, BMP, CRP, PRCAL #### [facility] [address] [place] [address] [employer]uler: Sabas Lamb MD Platelets (Bld) [#/Vol] NOT REPORTED Normal [facility] Comment on above: Performed By: #### C DP, BMP, CRP, PRCAL #### [facility] [address] [place] [address] [employer]uler: Sabas Lamb MD RBC morphology finding Nom (Bld) NOT REPORTED Normal [facility] Comment on above: Performed By: #### C DP, BMP, CRP, PRCAL #### [facility] [address] [place] [address] [employer]uler: Sabas Lamb MD WBC Morphology NOT REPORTED Normal [facility] Comment on above: Performed By: #### C DP, BMP, CRP, PRCAL #### [facility] [address] [place] [address] [employer]uler: Sabas Lamb MD Lipid Profileon 10-25-2018 Cholesterol [Mass/Vol] 114 mg/dL Normal <200 [facility] Comment on above: Result Comment: Cholesterol Guidelines: <200 Desirable 200-240 Borderline >240 Undesirable Performed By: #### C DP, BMP, CRP, PRCAL #### [address] [address] [employer]: Sabas Lamb MD Cholesterol in HDL [Mass/Vol] 37 mg/dL Low >40 [facility] Comment on above: Result Comment: HDL Guidelines: <40 Undesirable 40-59 Borderline >59 Desirable Performed By: #### C DP, BMP, CRP, PRCAL #### [address] [address] [employer]uler: Sabas Lamb MD Cholesterol in LDL [Mass/Vol] 63 mg/dL Normal 0-130 [facility] Comment on above: Result Comment: LDL Guidelines: <100 Desirable 100-129 Near to/above Desirable 130-159 Borderline >159 Undesirable Direct (measured) LDL and calculated LDL are not interchangeable tests. Performed By: #### C DP, BMP, CRP, PRCAL #### [facility] [employer] [address] [place] [address] [employer]uler: Sabas Lamb MD Cholesterol.total /Cholesterol in HDL [Mass ratio] 3.1 {ratio} Normal <5 [facility] Comment on above: Performed By: #### C DP, BMP, CRP, PRCAL #### [facility] [address] [place] [address] [employer]: Sabas Lamb MD Triglyceride [Mass/Vol] 71 mg/dL Normal <150 [facility] Comment on above: Result Comment: Triglyceride Guidelines: <150 Desirable 150-199 Borderline 200-499 High >499 Very high Based on AHA Guidelines for fasting triglyceride, March 2012. Performed By: #### C DP, BMP, CRP, PRCAL #### [facility] [address] [place] [address] [employer]: Sabas Lamb MD Cholesterol in VLDL [Mass/Vol] NOT REPORTED Normal 1-30 [facility] Comment on above: Performed By: #### C DP, BMP, CRP, PRCAL #### [facility] [address] [place] [address] [employer]: Sabas Lamb MD Specimen Rejectionon 019 ----- NOT REPORTED Normal [facility] Comment on above: Performed By: #### C DP, BMP, CRP, PRCAL #### [facility] [address] [place] [address] [employer]: Sabas Lamb MD Reason for rejection Unable to perform testing: Specimen mislabeled. Normal [facility] Comment on above: Performed By: #### C DP, BMP, CRP, PRCAL #### [address] [address] [employer]uler: Sabas Lamb MD Source of sample .BLOOD Normal [facility] Comment on above: Performed By: #### C DP, BMP, CRP, PRCAL #### [address] [address] [employer]uler: Sabas Lamb MD Test ordered BMP CDP Normal [facility] Comment on above: Performed By: #### C DP, BMP, CRP, PRCAL #### [address] [address] [employer]: Sabas Lamb MD APTTon 10-24-2018 aPTT Coag (Bld) [Time] 26.3 s Normal 20.5-30.5 [facility] Comment on above: Performed By: #### C DP, BMP, CRP, PRCAL #### [address] [address] [employer]uler: Sabas Lamb MD Basic Metabolic Profon 10-24 (cont.) [facility] Comment on above: Result Comment: Aver age GFR for 50-59 years old: 93 mL/min/1.73sq m Chronic Kidney Disease: <60 mL/min/1.73sq m Kidney failure: <15 mL/min/1.73sq m eGFR calculated using average adult body mass. Additional eGFR calculator available at: http://www.[employer]com/multiple_crcl_2012.htm Performed By: #### C DP, BMP, CRP, PRCAL #### [address] [address] [employer]: Sabas Lamb MD Anion gap [Moles/Vol] 14 mmol/L Normal 9-17 [facility] Comment on above: Performed By: #### C DP, BMP, CRP, PRCAL #### [address] [id number] [employer]: Sabas Lamb MD Calcium [Mass/Vol] 9.1 mg/dL Normal 8.6-10.4 [facility] Comment on above: Performed By: #### C DP, BMP, CRP, PRCAL #### [facility] [address] [place] [address] [employer]: Sabas Lamb MD Chloride [Moles/Vol] 101 mmol/L Normal 98-107 [facility] Comment on above: Performed By: #### C DP, BMP, CRP, PRCAL #### [facility] [address] [place] [address] [employer]: Sabas Lamb MD CO2 [Moles/Vol] 23 mmol/L Normal 20-31 [facility] Comment on above: Performed By: #### C DP, BMP, CRP, PRCAL #### [facility] [address] [place] [address] [employer]: Sabas Lamb MD Creatinine [Mass/Vol] 0.34 mg/dL Low 0.50-0.90 [facility] Comment on above: Performed By: #### C DP, BMP, CRP, PRCAL #### [address] [address] [employer]: Sabas Lamb MD GFR, Amer >60 Normal >60 [facility] Comment on above: Performed By: #### C DP, BMP, CRP, PRCAL #### [facility] [address] [place] [address] [employer]: Sabas Lamb MD GFR,non Amer >60 Normal >60 [facility] Comment on above: Performed By: #### C DP, BMP, CRP, PRCAL #### [facility] [address] [place] [address] [employer]: Sabas Lamb MD Glucose [Mass/Vol] 86 mg/dL Normal 70-99 [facility] Comment on above: Performed By: #### C DP, BMP, CRP, PRCAL #### [facility] [address] [place] [address] [employer]: Sabas Lamb MD Potassium [Moles/Vol] 3.9 mmol/L Normal 3.7-5.3 [facility] Comment on above: Performed By: #### C DP, BMP, CRP, PRCAL #### [facility] [address] [place] [address] [employer]: Sabas Lamb MD Sodium [Moles/Vol] 138 mmol/L Normal 135-144 [facility] Comment on above: Performed By: #### C DP, BMP, CRP, PRCAL #### [address] [address] [employer]: Sabas Lamb MD Urea nitrogen [Mass/Vol] 11 mg/dL Normal 6-20 [facility] Comment on above: Performed By: #### C DP, BMP, CRP, PRCAL #### [address] [address] [employer]: Sabas Lamb MD BUN/CRE Ratio NOT REPORTED Normal -20 [facility] Comment on above: Performed By: #### C DP, BMP, CRP, PRCAL #### [facility] [address] [place] [address] [employer]: Sabas Lamb MD Staging: NOT REPORTED Normal [facility] Comment on above: Performed By: #### C DP, BMP, CRP, PRCAL #### [facility] [address] [place] [address] [employer]: Sabas Lamb MD CBC with Diffon 10-24-2018 Abs. Basophil 0.03 k/uL Normal 0.00-0.20 [facility] Comment on above: Performed By: #### C DP, BMP, CRP, PRCAL #### [address] [address] [employer]: Sabas Lamb MD Abs.Imm.Granulocy te 0.05 k/uL Normal 0.00-0.30 [facility] Comment on above: Performed By: #### C DP, BMP, CRP, PRCAL #### [place] [address] [employer]: Sabas Lamb MD Abs.Neutrophil (Seg) 12.06 k/uL High 1.50-8.10 [facility] Comment on above: Performed By: #### C DP, BMP, CRP, PRCAL #### [place] [address] [employer]: Sabas Lamb MD Basophils/100 WBC (Bld) 0 % Normal 0-2 [facility] Comment on above: Performed By: #### C DP, BMP, CRP, PRCAL #### [address] [address] [employer]: Sabas Lamb MD Eosinophils (Bld) [#/Vol] 10*3/uL Normal 0.00-0.44 [facility] Comment on above: Performed By: #### C DP, BMP, CRP, PRCAL #### [address] [address] [employer]: Sabas Lamb MD Eosinophils/100 WBC (Bld) 0 % Low 1-4 [facility] Comment on above: Performed By: #### C DP, BMP, CRP, PRCAL #### [facility] [address] [place] [address] [employer]: Sabas Lamb MD Erythrocyte distribution width (RBC) [Ratio] 11.9 % Normal 11.8-14.4 [facility] Comment on above: Performed By: #### C DP, BMP, CRP, PRCAL #### [address] [address] [employer]: Sabas Lamb MD Hematocrit (Bld) [Volume fraction] 39.6 % Normal 36.3-47.1 [facility] Comment on above: Performed By: #### C DP, BMP, CRP, PRCAL #### [place] [address] [employer]: Sabas Lamb MD Hemoglobin (Bld) [Mass/Vol] 12.3 g/dL Normal 11.9-15.1 [facility] Comment on above: Performed By: #### C DP, BMP, CRP, PRCAL #### [place] [address] [employer]: Sabas Lamb MD Immature granulocytes (Bld) [#/Vol] 0 % Normal 0 [facility] Comment on above: Performed By: #### C DP, BMP, CRP, PRCAL #### [place] [address] [employer]: Sabas Lamb MD Lymphocytes (Bld) [#/Vol] 0.82 10*3/uL Low 1.10-3.70 [facility] Comment on above: Performed By: #### C DP, BMP, CRP, PRCAL #### [address] [address] [employer]: Sabas Lamb MD Lymphocytes/100 WBC (Bld) 6 % Low 24-43 [facility] Comment on above: Performed By: #### C DP, BMP, CRP, PRCAL #### [address] [address] [employer]: Sabas Lamb MD MCH (RBC) [Entitic mass] 31.1 pg Normal 25.2-33.5 [facility] Comment on above: Performed By: #### C DP, BMP, CRP, PRCAL #### [address] [address] [employer]: Sabas Lamb MD MCHC (RBC) [Mass/Vol] 31.1 g/dL Normal 28.4-34.8 [facility] Comment on above: Performed By: #### C DP, BMP, CRP, PRCAL #### [place] [address] [employer]: Sabas Lamb MD MCV (RBC) [Entitic vol] 100.3 fL Normal 82.6-102.9 [facility] Comment on above: Performed By: #### C DP, BMP, CRP, PRCAL #### [place] [address] [employer]: Sabas Lamb MD Monocytes (Bld) [#/Vol] 0.80 10*3/uL Normal 0.10-1.20 [facility] Comment on above: Performed By: #### C DP, BMP, CRP, PRCAL #### [place] [address] [employer]: Sabas Lamb MD Monocytes/100 WBC (Bld) 6 % Normal 3-12 [facility] Comment on above: Performed By: #### C DP, BMP, CRP, PRCAL #### [place] [address] Loom Overhauler: Sabas Lamb MD Neutrophil (Seg) 88 % High 36-65 [facility] Comment on above: Performed By: #### C DP, BMP, CRP, PRCAL #### [address] [address] Loom Overhauler: Sabas Lamb MD NRBC Automated 0.0 per 100 WBC Normal 0.0 [facility] Comment on above: Performed By: #### C DP, BMP, CRP, PRCAL #### [address] [address] Loom Overhauler: Sabas Lamb MD Platelet mean volume (Bld) [Entitic vol] 11.5 fL Normal 8.1-13.5 [facility] Comment on above: Performed By: #### C DP, BMP, CRP, PRCAL #### [address] [address] Loom Overhauler: Sabas Lamb MD Platelets (Bld) [#/Vol] 261 10*3/uL Normal 138-453 [facility] Comment on above: Performed By: #### C DP, BMP, CRP, PRCAL #### [address] [address] Loom Overhauler: Sabas Lamb MD RBC (Bld) [#/Vol] 3.95 10*6/uL Normal 3.95-5.11 [facility] Comment on above: Performed By: #### C DP, BMP, CRP, PRCAL #### [address] [address] Loom Overhauler: Sabas Lamb MD WBC (Bld) [#/Vol] 13.8 10*3/uL High 3.5-11.3 [facility] Comment on above: Performed By: #### C DP, BMP, CRP, PRCAL #### [facility] [address] [place] [address] Loom Overhauler: Sabas Lamb MD Auto Diff Performed NOT REPORTED Normal [facility] Comment on above: Performed By: #### C DP, BMP, CRP, PRCAL #### [facility] [address] [place] [address] Loom Overhauler: Sabas Lamb MD Platelets (Bld) [#/Vol] NOT REPORTED Normal [facility] Comment on above: Performed By: #### C DP, BMP, CRP, PRCAL #### [facility] [address] [place] [address] Loom Overhauler: Sabas Lamb MD RBC morphology finding Nom (Bld) NOT REPORTED Normal [facility] Comment on above: Performed By: #### C DP, BMP, CRP, PRCAL #### [facility] [address] [place] [address] Loom Overhauler: Sabas Lamb MD WBC Morphology NOT REPORTED Normal [facility] Comment on above: Performed By: #### C DP, BMP, CRP, PRCAL #### [address] [id number] Loom Overhauler: Sabas Lamb MD PTon 10-24-2018 INR Coag (PPP) [Relative time] 1.0 {INR} Normal [facility] Comment on above: Result Comment: Therapeutic Range: Moderate Anticoagulant Intensity: INR = 2.0-3.0 High Anticoagulant Intensity: INR = 2.5-3.5 Performed By: #### C DP, BMP, CRP, PRCAL #### [address] [id number] Loom Overhauler: Sabas Lamb MD PT Coag (PPP) [Time] 10.8 s Normal 9.0-12.0 [facility] Comment on above: Performed By: #### C DP, BMP, CRP, PRCAL #### [facility] [address] [place] [address] [phone] Loom Overhauler: Sabas Lamb MD Basic Metabolic Profon 10-23 (cont.) Normal [facility] Comment on above: Result Comment: Aver age GFR for 50-59 years old: 93 mL/min/1.73sq m Chronic Kidney Disease: <60 mL/min/1.73sq m Kidney failure: <15 mL/min/1.73sq m eGFR calculated using average adult body mass. Additional eGFR calculator available at: http://www.[employer]ong[employer].Genius Pack/multiple_crcl_2012.htm Performed By: #### C DP, BMP, CRP, PRCAL #### [facility] [address] [place] [address] Loom Overhauler: Sabas Lamb MD Anion gap [Moles/Vol] 14 mmol/L Normal 9-17 [facility] Comment on above: Performed By: #### C DP, BMP, CRP, PRCAL #### [facility] [address] [place] [address] Loom Overhauler: Sabas Lamb MD Calcium [Mass/Vol] 8.2 mg/dL Low 8.6-10.4 [facility] Comment on above: Performed By: #### C DP, BMP, CRP, PRCAL #### [facility] [address] [place] [address] Loom Overhauler: Sabas Lamb MD Chloride [Moles/Vol] 107 mmol/L Normal 98-107 [facility] Comment on above: Performed By: #### C DP, BMP, CRP, PRCAL #### [facility] [address] [place] [address] Loom Overhauler: Sabas Lamb MD CO2 [Moles/Vol] 20 mmol/L Normal 20-31 [facility] Comment on above: Performed By: #### C DP, BMP, CRP, PRCAL #### [facility] [address] [place] [address] Loom Overhauler: Sabas Lamb MD Creatinine [Mass/Vol] 0.42 mg/dL Low 0.50-0.90 [facility] Comment on above: Performed By: #### C DP, BMP, CRP, PRCAL #### [facility] [address] [place] [address] Loom Overhauler: Sabas Lamb MD GFR, Amer >60 Normal >60 [facility] Comment on above: Performed By: #### C DP, BMP, CRP, PRCAL #### [address] [address] Loom Overhauler: Sabas Lamb MD GFR,non Amer >60 Normal >60 [facility] Comment on above: Performed By: #### C DP, BMP, CRP, PRCAL #### [address] [address] Loom Overhauler: Sabas Lamb MD Glucose [Mass/Vol] 87 mg/dL Normal 70-99 [facility] Comment on above: Performed By: #### C DP, BMP, CRP, PRCAL #### [address] [address] Loom Overhauler: Sabas Lamb MD Potassium [Moles/Vol] 3.9 mmol/L Normal 3.7-5.3 [facility] Comment on above: Performed By: #### C DP, BMP, CRP, PRCAL #### [address] [address] Loom Overhauler: Sabas Lamb MD Sodium [Moles/Vol] 141 mmol/L Normal 135-144 [facility] Comment on above: Performed By: #### C DP, BMP, CRP, PRCAL #### [address] [address] Loom Overhauler: Sabas Lamb MD Urea nitrogen [Mass/Vol] 14 mg/dL Normal -20 [facility] Comment on above: Performed By: #### C DP, BMP, CRP, PRCAL #### [facility] [address] [place] [address] Loom Overhauler: Sabas Lamb MD BUN/CRE Ratio NOT REPORTED Normal -20 [facility] Comment on above: Performed By: #### C DP, BMP, CRP, PRCAL #### [facility] [address] [place] [address] Loom Overhauler: Sabas Lamb MD Staging: NOT REPORTED Normal [facility] Comment on above: Performed By: #### C DP, BMP, CRP, PRCAL #### [address] [address] Loom Overhauler: Saabs Lamb MD C-Reactive Proteinon 019 CRP [Mass/Vol] 40.6 mg/L High 0.0-5.0 [facility] Comment on above: Performed By: #### C DP, BMP, CRP, PRCAL #### [facility] [address] [place] [address] Loom Overhauler: Sabas Lamb MD CBC with Diffon 10-23-2018 Abs. Basophil 0.03 k/uL Normal 0.00-0.20 [facility] Comment on above: Performed By: #### C DP, BMP, CRP, PRCAL #### [address] [address] Loom Overhauler: Sabas Lamb MD Abs.Imm.Granulocy te 0.05 k/uL Normal 0.00-0.30 [facility] Comment on above: Performed By: #### C DP, BMP, CRP, PRCAL #### [facility] [address] [place] [address] Loom Overhauler: Sabas Lamb MD Abs.Neutrophil (Seg) 13.74 k/uL High 1.50-8.10 [facility] Comment on above: Performed By: #### C DP, BMP, CRP, PRCAL #### [facility] [address] [place] [address] Loom Overhauler: Sabas Lamb MD Basophils/100 WBC (Bld) 0 % Normal 0-2 [facility] Comment on above: Performed By: #### C DP, BMP, CRP, PRCAL #### [facility] [address] [place] [address] Loom Overhauler: Sabas Lamb MD Eosinophils (Bld) [#/Vol] 10*3/uL Normal 0.00-0.44 [facility] Comment on above: Performed By: #### C DP, BMP, CRP, PRCAL #### [address] [address] Loom Overhauler: Sabas Lamb MD Eosinophils/100 WBC (Bld) 0 % Low 1-4 [facility] Comment on above: Performed By: #### C DP, BMP, CRP, PRCAL #### [address] [address] Loom Overhauler: Sabas Lamb MD Erythrocyte distribution width (RBC) [Ratio] 12.1 % Normal 11.8-14.4 [facility] Comment on above: Performed By: #### C DP, BMP, CRP, PRCAL #### [address] [address] Loom Overhauler: Sabas Lamb MD Hematocrit (Bld) [Volume fraction] 35.7 % Low 36.3-47.1 [facility] Comment on above: Performed By: #### C DP, BMP, CRP, PRCAL #### [address] [address] Loom Overhauler: Sabas Lamb MD Hemoglobin (Bld) [Mass/Vol] 11.5 g/dL Low 11.9-15.1 [facility] Comment on above: Performed By: #### C DP, BMP, CRP, PRCAL #### [address] [address] Loom Overhauler: Sabas Lamb MD Immature granulocytes (Bld) [#/Vol] 0 % Normal 0 [facility] Comment on above: Performed By: #### C DP, BMP, CRP, PRCAL #### [address] [address] Loom Overhauler: Sabas Lamb MD Lymphocytes (Bld) [#/Vol] 1.21 10*3/uL Normal 1.10-3.70 [facility] Comment on above: Performed By: #### C DP, BMP, CRP, PRCAL #### [address] [address] Loom Overhauler: Sabas Lamb MD Lymphocytes/100 WBC (Bld) 8 % Low 24-43 [facility] Comment on above: Performed By: #### C DP, BMP, CRP, PRCAL #### [address] [address] Loom Overhauler: Sabas Lamb MD MCH (RBC) [Entitic mass] 31.8 pg Normal 25.2-33.5 [facility] Comment on above: Performed By: #### C DP, BMP, CRP, PRCAL #### [address] [address] Loom Overhauler: Sabas Lamb MD MCHC (RBC) [Mass/Vol] 32.2 g/dL Normal 28.4-34.8 [facility] Comment on above: Performed By: #### C DP, BMP, CRP, PRCAL #### [address] [address] Loom Overhauler: Sabas Lamb MD MCV (RBC) [Entitic vol] 98.6 fL Normal 82.6-102.9 [facility] Comment on above: Performed By: #### C DP, BMP, CRP, PRCAL #### [address] [address] Loom Overhauler: Sabas Lamb MD Monocytes (Bld) [#/Vol] 1.01 10*3/uL Normal 0.10-1.20 [facility] Comment on above: Performed By: #### C DP, BMP, CRP, PRCAL #### [address] [address] Loom Overhauler: Sabas Lamb MD Monocytes/100 WBC (Bld) 6 % Normal 3-12 [facility] Comment on above: Performed By: #### C DP, BMP, CRP, PRCAL #### [address] [address] Loom Overhauler: Sabas Lamb MD Neutrophil (Seg) 86 % High 36-65 [facility] Comment on above: Performed By: #### C DP, BMP, CRP, PRCAL #### [address] [address] Loom Overhauler: Sabas Lamb MD NRBC Automated 0.0 per 100 WBC Normal 0.0 [facility] Comment on above: Performed By: #### C DP, BMP, CRP, PRCAL #### [address] [address] Loom Overhauler: Sabas Lamb MD Platelet mean volume (Bld) [Entitic vol] 11.7 fL Normal 8.1-13.5 [facility] Comment on above: Performed By: #### C DP, BMP, CRP, PRCAL #### [address] [address] Loom Overhauler: Sabas Lamb MD Platelets (Bld) [#/Vol] 268 10*3/uL Normal 138-453 [facility] Comment on above: Performed By: #### C DP, BMP, CRP, PRCAL #### [facility] [address] [place] [address] Loom Overhauler: Sabas Lamb MD RBC (Bld) [#/Vol] 3.62 10*6/uL Low 3.95-5.11 [facility] Comment on above: Performed By: #### C DP, BMP, CRP, PRCAL #### [address] [address] Loom Overhauler: Sabas Lamb MD WBC (Bld) [#/Vol] 16.1 10*3/uL High 3.5-11.3 [facility] Comment on above: Performed By: #### C DP, BMP, CRP, PRCAL #### [address] [address] Loom Overhauler: Sabas Lamb MD Auto Diff Performed NOT REPORTED Normal [facility] Comment on above: Performed By: #### C DP, BMP, CRP, PRCAL #### [address] [address] Loom Overhauler: Sabas Lamb MD Platelets (Bld) [#/Vol] NOT REPORTED Normal [facility] Comment on above: Performed By: #### C DP, BMP, CRP, PRCAL #### [address] [address] Loom Overhauler: Sabas Lamb MD RBC morphology finding Nom (Bld) NOT REPORTED Normal [facility] Comment on above: Performed By: #### C DP, BMP, CRP, PRCAL #### [address] [address] Loom Overhauler: Sabas Lamb MD WBC Morphology NOT REPORTED Normal [facility] Comment on above: Performed By: #### C DP, BMP, CRP, PRCAL #### [address] [address] Loom Overhauler: Sabas Lamb MD CT HEAD WO CONTRASTon [...] Cas Contreras MD 10/23/18 Final result Normal [facility] MRI BRAIN W CONTRASTon 10-23 MRI [...] Freddie Maldonado MD 10/23/18 Final result Normal [facility] OPERATIVE REPORTon 10-23-201 9 OPERATIVE REPORT [address] [address] OPERATIVE REPORT PATIENT NAME: DACIA FINLEY : 1960 MED REC NO: [id number] ROOM: [facility] ACCOUNT NO: [id number] ADMIT DATE: 10/22/2018 PROVIDER: Meera Rojas DATE [...] with lightheadedness and coughing. She presented at [facility] ER earlier today due to these complaints and was found to have a sizeable right-sided subdural hematoma. She was transferred to [place] for further management. She was reported to be neurologically intact when at the outside hospital, but upon arrival to the ER at [place], she was noted to have some mild [...] evidence of complication. MEERA ROJAS [id number] Doc#: [id number] CC: Normal [facility] Procalcitoninon 10-23-2018 Procalcitonin 0.06 ng/mL Normal <0.09 [facility] Comment on above: Result Comment: Suspected [...] entered into the Change in Procalcitonin Calculator (www.zmxfdj-fzr-sgpvbdkykq.Genius Pack) to determine the patient's Mortality Risk Prognosis Performed By: #### C DP, BMP, CRP, PRCAL #### [place] [address] Loom Overhauler: Sabas Lamb MD XR CHEST PORTABLEon 10-24-19 [...] Carlos Carlson MD 10/23/18 Final result Normal [facility] Platelets,Transfuseon 2018 Platelets,Transfu se Unit Number [id number] Blood Component Type Leukocyte Reduced Irradiated Plateletpheresis Unit Division 00 Status of Unit TRANSFUSED Transfusion Status OK TO TRANSFUSE Normal [facility] Comment on above: Performed By: #### T PLT #### [facility] [address] [place] [address] Loom Overhauler: Sabas Lamb MD Type + Screenon 10-22-2018 Type + Screen Sample Expiration Arm Band Number BE [id number] ABO/Rh(D) A POSITIVE Antibody Screen NEGATIVE Normal [facility] Comment on above: Performed By: #### T YS #### [employer] [address] [place] [address] Loom Overhauler: Sabas Labm MD Discharge Summaryon 06-07-20 Discharge Summary MR#: [id number] Dacia Fin[facility] Admitted: 06/05/2017 Discharged: 06/06/2017 Date of : 1960 Physician: Rachele Post DO DISCHARGE SUMMARYDISCHARGE SERVICE: CCU.PRIMARY DIAGNOSIS: Acute coronary syndrome.SECONDARY DIAGNOSIS: Migraine.PROCEDURE: Percutaneous coronary intervention with stent placement.HOSPITAL COURSE: This is a 56-year-old female with past medical history ofmigraines, who was transferred from [facility]. She presented therewith chest discomfort and was found to have EKG abnormalities. In the lastmonth, the patient reported 3 episodes of chest pain with the latest being. The chest pain was also associated with sweating, shortnessof breath, and nausea. She was transferred from [facility] andadmitted to the CCU. The patient's troponins were remained negative, butwith her chest pain and EKG changes, she was taken to the tree tapping laborer. In thecath lab, this showed 90% [...] Dict: 06/06/2017/02:36 P/ROSI Keyate Trans: 06/07/2017 09:17 A/Kong_JN:[id number]: Ryan Arevalo M.D. [address] [facility] [address] Kel Bueno M.D. [address] [place] [address] Normal [facility] BASIC METABOLIC PANELon 12-3 Calcium 9.3 mg/dL Normal 8.6-10.3 [facility] Comment on above: Order Comment: Unkno wn Performed By: #### 0 0071, [address] ####[facility] [place] [address], [facility] Chloride 105 mmol/L Normal 98-107 [facility] Comment on above: Order Comment: Unkno wn Performed By: #### 0 0071, 86881 ####[facility] [facility] [place] [address], [facility] CO2 24 mmol/L Normal 21-31 [facility] Comment on above: Order Comment: Unkno wn Performed By: #### 0 0071, 6[address]19 ####[facility] [facility] [place] [address], [facility] Creatinine 0.72 mg/dL Normal 0.60-1.20 [facility] Comment on above: Order Comment: Unkno wn Performed By: #### 0 0071, [address]78 ####[facility] [facility] [place] [address], [facility] eGFR (black) mL/min/{1.73_m2} Normal >60 [facility] Comment on above: Order Comment: Unkno wn Performed By: #### 0 0071, 56291 ####[facility] [facility].[address] eGFR (non-black) mL/min/{1.73_m2} Normal >60 [facility] Comment on above: Order Comment: Unkno wn Performed By: #### 0 0071, 94134 ####[facility] [facility] [place] [address], [facility] Glucose mass conc 89 mg/dL Normal 70-100 [facility] Comment on above: Order Comment: Unkno wn Performed By: #### 0 0071, 45619 ####[facility] [facility] [place] [address], [facility] Potassium molar conc 3.8 mmol/L Normal 3.5-5.1 [facility] Comment on above: Order Comment: Unkno wn Performed By: #### 0 0071, 29160 ####[facility] [facility] [place] [address], [facility] Sodium 139 mmol/L Normal 136-145 [facility] Comment on above: Order Comment: Unkno wn Performed By: #### 0 1, 43215 ####[facility] [facility], [place] [id number] [place] [address] Urea nitrogen 14 mg/dL Normal 7-25 [facility] Comment on above: Order Comment: Unkno wn Performed By: #### 0 007, [address]5931 ####[facility] [facility], [place] [address] [place] [address] CBC COMPLETE BLOOD COUNTon Erythrocyte distribution width Auto Ratio (RBC) 13.3 % Normal 11.5-16.9 [facility] Comment on above: Order Comment: Unkno wn Performed By: #### 5 0608 ####[facility] [facility].[address] Erythrocytes (RBC) 4.43 mill/mm3 Normal 3.50-5.50 [facility] Comment on above: Order Comment: Unkno wn Performed By: #### 5 0608 ####[facility] [facility], [place] [address] [place] [address] Hematocrit (HCT) 40.9 % Normal 36.0-48.0 [facility] Comment on above: Order Comment: Unkno wn Performed By: #### 5 0608 ####[facility] [facility], [place] [address] [place] [address] Hemoglobin mass conc (Bld) 13.6 g/dL Normal 12.0-15.0 [facility] Comment on above: Order Comment: Unkno wn Performed By: #### 5 0608 ####[facility] [facility] [address], [facility] MCH 30.7 pg Normal 24.0-32.0 [facility] Comment on above: Order Comment: Unkno wn Performed By: #### 5 0608 ####[facility] [facility] [place] [place] [address], [facility] MCHC mass conc (RBC) 33.2 g/dL Normal 32.0-36.0 [facility] Comment on above: Order Comment: Unkno wn Performed By: #### 5 0608 ####[facility] MCV 92.2 fL Normal 80.0-100.0 [facility] Comment on above: Order Comment: Unkno wn Performed By: #### 5 0608 ####[facility] PLAT CNT 194 Thou/mm3 Normal 100-400 [facility] Comment on above: Order Comment: Unkno wn Performed By: #### 5 0608 ####[place] [address] [address] WBC (Leukocytes) 10.8 Thou/mm3 High 4.0-10.0 [facility] Comment on above: Order Comment: Unkno wn Performed By: #### 5 0608 ####[facility] Cardiovascular Lab Reporton 06-06-2017 Cardiovascular Lab Report [facility] MR #: [id number] Physician: Elías Zhao M.D.Medicine Service Date: 06/05/2017Division of Birthdate: 1960Cardiology Room #: 3CD [id number] [place] [address]Phone Fax Cardiovascular Laboratory ReportINDICATION: Dacia Finley is [...] signed informed consent. She was brought to tree tapping laborer in a fastingstate. The right groin area was prepped and draped in usual fashion.Using micropuncture technique, the right common femoral artery wasaccessed. The inner cannula was advanced and limited right femoralangiography was performed followed by upsizing to a 5-Congolese x 11 cmsheath. Bilateral selective carotid angiography was then performed using5-Congolese JL4 and JR4 diagnostic catheters. Catheters were removed.Heparin was administered intravenously and therapeutic ACT confirmed duringthe procedure. A 5-Congolese JR4 guiding catheter was advanced and used toengage the right coronary ostium. A [employer] wire was advanced into thedistal RCA. Balloon [...] stentfollowed by post dilatation using [employer] Remington 3.0 x 20 mm noncompliantballoon inflated at [...] 06/05/2017/03:03 P/Elías Cannon M.D.Date Trans: 06/06/2017 07:01 A/Kong_JN:[id number]: Ryan Arevalo M.D. [facility] [address] [facility] [place] [facility] [address] Kel Bueno M.D. [facility] [facility] [address] Normal [facility] MAGNESIUM BLOODon 06-06-2017 Magnesium 1.9 mg/dL Normal 1.9-2.7 [facility] Comment on above: Performed By: #### 5 0608 ####[facility] [facility].[address] APTTon 06-05-2017 aPTT 32.6 s Normal 25.0-35.0 [facility] Comment on above: Order Comment: [...] THIS PURPOSE. Performed By: #### 5 6101, [address] ####[facility] [facility] [address], [facility] BASIC METABOLIC PANELon - Calcium 8.9 mg/dL Normal 8.6-10.3 [facility] Comment on above: Order Comment: No: D o not add to previous draw Performed By: #### 0 0071 ####[facility] [facility] [address], [facility] Chloride 106 mmol/L Normal 98-107 [facility] Comment on above: Order Comment: No: D o not add to previous draw Performed By: #### 0 0071 ####[facility] [facility] [address], [facility] CO2 28 mmol/L Normal 21-31 [facility] Comment on above: Order Comment: No: D o not add to previous draw Performed By: #### 0 0071 ####[facility] [place] [address], [facility] Creatinine 0.76 mg/dL Normal 0.60-1.20 [facility] Comment on above: Order Comment: No: D o not add to previous draw Performed By: #### 0 0071 ####[facility] [place] [address], [facility] eGFR (black) mL/min/{1.73_m2} Normal >60 [facility] Comment on above: Order Comment: No: D o not add to previous draw Performed By: #### 0 0071 ####[facility] [place] [address], [facility] eGFR (non-black) mL/min/{1.73_m2} Normal >60 [facility] Comment on above: Order Comment: No: D o not add to previous draw Performed By: #### 0 0071 ####[facility] [place] [address], [facility] Glucose mass conc 88 mg/dL Normal 70-100 [facility] Comment on above: Order Comment: No: D o not add to previous draw Performed By: #### 0 0071 ####[facility] [place] [address], [facility] Potassium molar conc 3.8 mmol/L Normal 3.5-5.1 [facility] Comment on above: Order Comment: No: D o not add to previous draw Performed By: #### 0 0071 ####[facility] [place] [address], [facility] Sodium 138 mmol/L Normal 136-145 [facility] Comment on above: Order Comment: No: D o not add to previous draw Performed By: #### 0 0071 ####[facility] [id number], [facility] Urea nitrogen 10 mg/dL Normal 7-25 [facility] Comment on above: Order Comment: No: D o not add to previous draw Performed By: #### 0 0071 ####[facility] CBC COMPLETE BLOOD COUNTon Erythrocyte distribution width Auto Ratio (RBC) 13.9 % Normal 11.5-16.9 [facility] Comment on above: Order Comment: No: D o not add to previous draw Performed By: #### 5 0608 ####[facility] Erythrocytes (RBC) 4.66 mill/mm3 Normal 3.50-5.50 [facility] Comment on above: Order Comment: No: D o not add to previous draw Performed By: #### 5 0608 ####[facility]3000 [facility].[address] Hematocrit (HCT) 42.9 % Normal 36.0-48.0 [facility] Comment on above: Order Comment: No: D o not add to previous draw Performed By: #### 5 0608 ####[place] [address] [facility].[address] Hemoglobin mass conc (Bld) 14.2 g/dL Normal 12.0-15.0 [facility] Comment on above: Order Comment: No: D o not add to previous draw Performed By: #### 5 0608 ####[facility] MCH 30.5 pg Normal 24.0-32.0 [facility] Comment on above: Order Comment: No: D o not add to previous draw Performed By: #### 5 0608 ####[facility] MCHC mass conc (RBC) 33.1 g/dL Normal 32.0-36.0 [facility] Comment on above: Order Comment: No: D o not add to previous draw Performed By: #### 5 0608 ####[facility] [place] [address], [facility] MCV 92.0 fL Normal 80.0-100.0 [facility] Comment on above: Order Comment: No: D o not add to previous draw Performed By: #### 5 0608 ####[facility] [place] [address], [facility] PLAT CNT 178 Thou/mm3 Normal 100-400 [facility] Comment on above: Order Comment: No: D o not add to previous draw Performed By: #### 5 0608 ####[facility] WBC (Leukocytes) 6.6 Thou/mm3 Normal 4.0-10.0 [facility] Comment on above: Order Comment: No: D o not add to previous draw Performed By: #### 5 0608 ####[facility] Erythrocyte distribution width Auto Ratio (RBC) 13.1 % Normal 11.5-16.9 [facility] Comment on above: Order Comment: No: D o not add to previous draw Performed By: #### 5 0608 ####[facility] Erythrocytes (RBC) 4.49 mill/mm3 Normal 3.50-5.50 [facility] Comment on above: Order Comment: No: D o not add to previous draw Performed By: #### 5 0608 ####[facility] Hematocrit (HCT) 41.7 % Normal 36.0-48.0 [facility] Comment on above: Order Comment: No: D o not add to previous draw Performed By: #### 5 0608 ####[facility] [place] [address], [facility] Hemoglobin mass conc (Bld) 13.9 g/dL Normal 12.0-15.0 [facility] Comment on above: Order Comment: No: D o not add to previous draw Performed By: #### 5 0608 ####[facility] [place] [address], [facility] MCH 31.1 pg Normal 24.0-32.0 [facility] Comment on above: Order Comment: No: D o not add to previous draw Performed By: #### 5 0608 ####[facility] MCHC mass conc (RBC) 33.5 g/dL Normal 32.0-36.0 [facility] Comment on above: Order Comment: No: D o not add to previous draw Performed By: #### 5 0608 ####[facility] MCV 92.8 fL Normal 80.0-100.0 [facility] Comment on above: Order Comment: No: D o not add to previous draw Performed By: #### 5 0608 ####[place] [address] [facility] [place] [place] [address], [facility] PLAT CNT 172 Thou/mm3 Normal 100-400 [facility] Comment on above: Order Comment: No: D o not add to previous draw Performed By: #### 5 0608 ####[facility] [place] [address], [facility] WBC (Leukocytes) 6.7 Thou/mm3 Normal 4.0-10.0 [facility] Comment on above: Order Comment: No: D o not add to previous draw Performed By: #### 5 0608 ####[facility] [place] [address], [place] History and Physicalon 06-05 History and Physical [id number] Admitted: 06/05/2017 Date of : 1960 Attending Physician: Wayne Donis MD Room #: [id number] Discharge Date: HISTORY AND PHYSICALCHIEF COMPLAINT: Chest pain.HISTORY OF PRESENT ILLNESS: The patient is a 56-year-old female withhistory of migraines, who was transferred from [facility] after shepresented there with chest discomfort [...] chest. [facility] did E[facility], which showed some T waveinversions in the lateral leads, so [facility]. [facility] there was negative and EKG again asmentioned, was abnormal with T wave inversion in the lateral leads. [facility] andmanagement. When I saw [...] or drug use.FAMILY HISTORY: Father of an PA at age 79 and mother of PA whenshe was having an open heart surgery at age 57.REVIEW OF SYSTEMS: A 10-point review of systems was done, and pertinentpositives and negatives mentioned in the HPI.MEDICATIONS: The patient only takes Imitrex for migraines as needed.PHYSICAL EXAMINATION: VITAL SIGNS: Temperature 98, pulse 75, [id number], blood pressure 129/80, and saturating 100% on [...] 06/05/2017/03:33 A/Wayne Donis MDDate Trans: 06/05/2017 04:23 A/Kong_JN:[id number] Normal [facility] PROTHROMBIN TIMEon 7 INR Coag RelTime (PPP) 0.98 {INR} Normal 0.91-1.16 [facility] Comment on above: Order Comment: [...] OF ACTION, CLINICALEFFECTIVENESS, AND OPTIMAL THERAPEUTIC RANGE. [id number];108:231S-246S. Performed By: #### 5 6101, 79522 ####[facility] Prothrombin time (PT) Coag time (PPP) 13.0 s Normal 12.3-14.8 [facility] Comment on above: Order Comment: No: D o not add to previous draw Result Comment: ALL RESULTS MUST BE INTERPRETED WITH RESPECT TO BLOOD DRAWING ARTIFACTOR DILUTION ERROR OF ANTICOAGULANT AT THE TIME OF SAMPLING. Performed By: #### 5 6101, 76935 ####[facility] [place] [address], [facility] TROPONIN-Ion 06-05-2017 Troponin I.cardiac mass conc 0.03 ng/mL Normal 0.00-0.04 [facility] Comment on above: Order Comment: No: D o not add to previous draw Result Comment: REFE RENCE RANGES: 0.00 - 0.04 ng/ml NORMAL 0.05 - 0.50 ng/ml INDETERMINATE > 0.50 ng/ml CONSISTENT WITH AN M.I. Performed By: #### 3 5200 ####[facility] [place] [address], [facility] Troponin I.cardiac mass conc 0.01 ng/mL Normal 0.00-0.04 [facility] Comment on above: Order Comment: No: D o not add to previous draw Result Comment: REFE RENCE RANGES: 0.00 - 0.04 ng/ml NORMAL 0.05 - 0.50 ng/ml INDETERMINATE > 0.50 ng/ml CONSISTENT WITH AN M.I. Performed By: #### 3 5200 ####[facility] [place] [address], [facility] Troponin I.cardiac mass conc 0.02 ng/mL Normal 0.00-0.04 [facility] Comment on above: Order Comment: No: D o not add to previous draw Result Comment: REFE RENCE RANGES: 0.00 - 0.04 ng/ml NORMAL 0.05 - 0.50 ng/ml INDETERMINATE > 0.50 ng/ml CONSISTENT WITH AN M.I. Performed By: #### 3 5200 ####[facility] [place] [address], [facility] Vital Signs Date Time Vital Sign Value Performing Clinician Samir olivas 01-19-2023 11:15-0400 Diastolic blood pressure 92 mm[Hg] Elvira Scherer DO Work Phone: [facility] 01-19-2023 11:15-0400 Heart rate 75 /min Elvira Scherer DO Work Phone: [facility] 01-19-2023 11:15-0400 Respiratory rate 16 /min Elvira Scherer DO Work Phone: [facility] 01-19-2023 11:15-0400 SaO2% (BldA) [Mass fraction] 97 % Elvira Scherer DO Work Phone: [facility] 01-19-2023 11:15-0400 Systolic blood pressure 112 mm[Hg] Elvira Scherer DO Work Phone: [facility] 01-19-2023 10:48-0400 Body temperature 96.91 [degF] Elvira Scherer DO Work Phone: [facility] 01-19-2023 09:50-0400 Body height 154.9 cm Elvira Scherer DO Work Phone: [facility] 01-19-2023 09:50-0400 Body mass index (BMI) [Ratio] 19.84 kg/m2 Elvira Scherer DO Work Phone: [facility] 01-19-2023 09:50-0400 Body weight 47.63 kg Elvira Scherer DO Work Phone: [facility] 12-01-2022 10:15-0400 Diastolic blood pressure 67 mm[Hg] Elvira Scherer DO Work Phone: [facility] 12-01-2022 10:15-0400 Heart rate 66 /min Elvira Scherer DO Work Phone: [facility] 12-01-2022 10:15-0400 SaO2% (BldA) [Mass fraction] 97 % Elvira Scherer DO Work Phone: [facility] 12-01-2022 10:15-0400 Systolic blood pressure 112 mm[Hg] Elvira Scherer DO Work Phone: [facility] 12-01-2022 09:41-0400 Body temperature 97 [degF] Elvira Scherer DO Work Phone: [facility] 12-01-2022 09:41-0400 Respiratory rate 18 /min Elvirapietro Scherer Work Phone: [facility] 12-01-2022 08:20-0400 Body mass index (BMI) [Ratio] 20.18 kg/m2 Elvirapietro Scherer DO Work Phone: [facility] 12-01-2022 08:20-0400 Body weight 48.44 kg Elvirapietro Scherer DO Work Phone: [facility] 11-17-2022 11:32-0400 Body height 154.9 cm Elvira Paul Work Phone: [facility] Encounters Encounter Date Encounter Type Care Provider Facility Start: 01-19-2023 End: 01-19-2023 ambulatory [facility] Start: 01-19-2023 End: 01-19-2023 Subsequent hospital visit by physician Elvira Scherer DO Work Phone: [facility] Start: 12-01-2022 End: 12-01-2022 ambulatory RY[facility] Start: 12-01-2022 End: 12-01-2022 Subsequent hospital visit by physician Elvira Scherer DO Work Phone: [facility] Start: 09-09-2022 End: 09-10-[address] RYAN AREVALO . Facility:[facility] Start: 08-29-2022 Encounter for genera l adult medical examination without abnormal findings DR RYAN AREVALO . [facility] Start: 08-21-2022 End: 08-21-[address] RYAN AREVALO . Facility:[facility] Start: 08-21-2022 End: 08-21-2022 Encounter for general adult medical examination without abnormal findings DR RYAN AREVALO . Facility:[facility] Start: 08-15-2022 End: 08-16-[address] RYAN AREVALO . 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 RENNY D OBB Start: 10-23-2018 TOBACCO CESSATION EDUCATION MEERA ROJAS Start: 10-23-2018 VITAL SIGNS MEERA Ray Start: 10-23-2018 WOUND CARE MEERA ELKIN Ray Start: 10-22-2018 TRANSFUSE PLATELETS MERVIN ID BOB Start: 10-22-2018 Transfusion blood/bl ood components MEEAR ROJAS Start: 10-22-2018 PATIENT STATUS (FROM ED [...] cataract of right eye 01/19/2023 10:26 AM [facility] Start: 01-06-2023 Influenza vaccination B [facility] Start: 12-01-2022 End: 12-01-2022 Xcapsl ctrc rmvl insj io lens prosth w/o ecp EYE CATARACT EMULSIFICATION IOL IMPLANT Age-related nuclear cataract of left eye 12/01/2022 9:07 AM [facility] Start: 10-26-2019 Lipid panel Lipids [facility] Start: 08-29-2009 Screening for malign ant neoplasm of breast Breast cancer screen [facility] Start: 08-29-2009 Screening for malign ant neoplasm of lung Low dose CT lung screening &/or counseling [facility] Start: 08-29-2009 Shingles vaccine (1 of 2) Shingles vaccine (1 of 2) [facility] Start: 08-29-2004 Screening for malign ant neoplasm of colon [facility] Start: 08-29-1978 DTaP/Tdap/Td vaccine (1 - Tdap) DTaP/Tdap/Td vaccine (1 - Tdap) [facility] Start: 08-29-1977 Hepatitis C screening Hepatitis C sc reen [facility] Start: 08-29-1974 HIV screening HIV screen [facility] Start: 1971 Depression Screen Depression Screen [facility] Start: 08-29-1965 Pneumococcal 0-64 ye ars Vaccine (1 - PCV) Pneumococcal 0-64 years Vaccine (1 - PCV) [facility] Start: 03-01-1960 COVID-19 Vaccine (#1) COVID-19 Vacci ne (#1) [facility] Oxygen therapy [Mini mum Data Set] Initiate Oxygen Therapy Protocol Respiratory Care Routine Daily until discontinued starting 12/01/2022 [facility] Comment on above: Daily until disconti nued starting 12/01/2022 Oxygen therapy [Mini mum Data Set] Initiate Oxygen Therapy Protocol Respiratory Care Routine Daily until discontinued starting 12/01/2022 [facility] Comment on above: Daily until disconti nued starting 12/01/2022 Oxygen therapy [Mini mum Data Set] Initiate Oxygen Therapy Protocol Respiratory Care Routine Daily until discontinued starting 01/19/2023 [facility] Comment on above: Daily until disconti nued starting 01/19/2023 Oxygen therapy [[facility] Data Set] Initiate Oxygen Therapy Protocol Respiratory Care Routine Daily until discontinued starting 01/19/2023 [facility] Comment on above: Daily until disconti nued starting 01/19/2023 Payers Date Payer Category Payer Unknown [id number] [id number] [id number] 1960 Unknown [id number] 2.16.84 [id number] 1960 Unknown [id number] 2.16.84 [id number] 1960 Unknown [id number] 2.16.84 [id number] 1960 Unknown [id number] 2.16.8 [id number] 1960 Unknown [id number] 2.16.8 [id number] 1960 [facility] [id number] Social History Date Type Detail Facility Start: 12-01-2022 [facility] History of tobacco use Cigarette Smoker [facility] Start: 12-01-2022 Cigarettes smoked current (pack per day) - Reported 1 [facility] Start: 12-01-2022 Tobacco use and exposure Smoke less tobacco non-user [facility] Start: 12-01-2022 End: 01-19-2023 Alcohol intake Lifetime non-drinker (finding) [facility] Start: 10-23-2018 History SDOH Alcohol Frequency 1 [facility] Start: 1960 Sex Assigned At Not on file [facility] Medical Equipment Procedure Code Equipment Code Equipment Origin al Text Equipment Identifier Dates Lens Intraocular Bcnvx 22+ Diopt 6x12.5 Mm Acryl [facility]ista - [id number] Start: 12-01-2022 Lens Intraocular Bcnvx 22+ Diopt 6x12.5 Mm Acryl [employer] - [id number] Start: 01-19-2023 History of Present illness [...] phone call. documented in this encounter [facility] Discharge instructions 01-19-2023 Discharge Instructions Note [...] the healing period. The office number is [phone]. Take surgery bag and all eye drops to Dr. Scherer's office tomorrow at 9:50am. You may resume your normal diet. Start your eye drops tomorrow after your post-op appointment: Ofloxacin/Polytrim one drop to the operated eye 4 times daily Prednisolone one drop to the operated eye 4 times daily documented in this encounter [facility] History of Present illness Narrative 12-01-2022 [...] the end of procedure. EKG received from [facility], will have anesthesia review. Patient instructed [...] EKG done. documented in this encounter [facility] Discharge instructions 12-01-2022 Discharge Instructions Note [...] the healing period. The office number is [phone]. Take surgery bag and all eye drops to Dr. Scherer's office tomorrow at 8:50am. You may resume your normal diet. 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 documented in this encounter [facility] Evaluation note Note Date & Type Note Facility Evaluation note Diagnosis Age-related nuclear cataract of right eye- Primary Senile nuclear sclerosis documented in this encounter [facility] Summary Purpose Family History No Family [...] and content) DATE CREATED AUTHOR 11/30/2017 [facility] DATE CREATED AUTHOR AUTHOR'S ORGANIZ ATION 01/19/2019 [facility] DATE CREATED AUTHOR AUTHOR'S ORGANIZ ATION 04/13/2021 [facility] DATE CREATED AUTHOR AUTHOR'S ORGANIZ ATION 08/26/2021 [facility] DATE CREATED AUTHOR AUTHOR'S ORGANIZ ATION 09/14/2022 [facility] DATE CREATED AUTHOR AUTHOR'S ORGANIZ ATION 01/22/2023 [facility] DATE CREATED AUTHOR AUTHOR'S ORGANIZ ATION 06/04/2023 [facility] Reason for Visit (unrecogniz ed section and content) Specialty Diagnoses / Procedures Referred By Mo garza Referred To Contact Diagnoses Age-related nuclear cataract of left eye AGE-RELATED NUCLEAR CAT 3+ NS, 1+PSC Procedures NJ XCAPSL CTRC RMVL INSJ IO LENS PROSTH W/O ECP EYE CATARACT EMULSIFICATION IOL IMPLANT Elvira Scherer, DO [address] [place] [address] [facility] [address] [place] [address] Referral ID Status Reason Start Date Expiration Date Visits Re quested Visits Authorized [id number] 1 1 Specialty Diagnoses / Procedures Referred By Mo garza Referred To Contact Diagnoses 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 [H25.811] Procedures NJ XCAPSL CTRC RMVL INSJ IO LENS PROSTH W/O ECP EYE CATARACT EMULSIFICATION IOL IMPLANT Elvira Scherer, DO [address] [place] [address] [facility] [address] [place] [address] Referral ID Status Reason Start Date Expiration Date Visits Re quested Visits Authorized [id number] 1 1 Scheduled Active and Recently Administ [...] minutes, starting 30 minutes prior to surgery, [facility] - enter number of doses based on [...] Care Teams (unrecognized sec tion and content) 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 [employer] [facility]. provides no warranty or guarantee of the accuracy or completeness of information in this document.
--- NOTE | 2024-04-27 07:18 | MM_ITS ---
Patient Name: LOU MCGUIRE MR#: [id number] : 1960 Exam Date: 04/27/2024 Ordering Doctor: DR RYAN LEMOS . RADIOLOGY REPORT PROCEDURE: MM TOMOSYNTHESIS SCREENING BI COMPARISON: MG MAMM SCREEN 3D GRICEL CAD, 08/15/2022. MG MAMM GRICEL SCRN W CAD DIG, 07/04/2015. INDICATIONS: Screening mammography Calculator Name NCI Breast Cancer Risk Assessment Tool 5 Year Breast Cancer Risk Not Reported. Lifetime Breast Cancer Risk Not Reported. Personal Breast Cancer No Personal Ovarian Cancer No Treatments None Family Cancers None LOCATION: [facility] BREAST COMPOSITION: The breasts are extremely dense, which lowers the sensitivity of mammography. FINDINGS: DIAGNOSTIC CATEGORY 1--NEGATIVE. NO CHANGE FROM COMPARISON ASSESSMENT. Scattered benign-appearing calcifications are present. RIGHT BREAST: No significant suspicious finding. LEFT BREAST: No significant suspicious finding. RECOMMENDATIONS: ROUTINE MAMMOGRAM AND CLINICAL EVALUATION IN 12 MONTHS. PLEASE NOTE: A NORMAL MAMMOGRAM DOES NOT EXCLUDE THE POSSIBILITY OF BREAST CANCER. A CLINICALLY SUSPICIOUS PALPABLE LUMP SHOULD BE BIOPSIED. Dictated by: Danny Herron MD on 04/27/2024 at 09:31 Approved by: Danny Herron MD on 04/27/2024 at 09:31
== END 2024-04-27 07:14 | disposition home or self-care (01) ==
LOC: MAMMO 07:13
PROVIDERS: PCP Family Medicine; Visit Provider Family Medicine
DX: Z00.00 Encounter for general adult medical examination without abnormal findings (principal); Z23 Encounter for immunization; Z12.31 Encounter for screening mammogram for malignant neoplasm of breast
CPT/HCPCS: 77063; 77067

== ENCOUNTER 2024-05-11 08:36 | Outpatient (OUT) | payer BC, SELFPAY ==
--- OUTSIDE RECORDS SUMMARY | 2024-05-11 08:53 | XMS_ITS | CCD ---
Author Organization [facility] Care Team Providers Care Music Engineer Name Role Phone KEL BUENO Unavailable Unavailable RYAN AREVALO Unavailable Unavailable ALENID, AURORA HUSSAM Unavailable Unavailabl e RACHELE POST Unavailable Unavailable OR Unavailable Unavailable UNKNOWN, PROVIDER Unavailable Unavailable MEERA [...] Unavailable HOY ., DR DAVIS Consulting Unavailable HOLLY POND, DR MEERA Maria Consulting Unavailable BILLY, DR CORINA Nichole Consulting Unavailable Ryan Arevalo MD Primary Care Provider [phone] RYAN AREVALO Primary Care Unavailable ELVIRA [...] (Original) docusate sodium 50 mg / sennosides, long term 8.6 mg oral tablet (1 source) Start: [...] disease (1 source) Atherosclerotic heart disease of [place] coronary artery with unstable angina pectoris; Translations: [ATHSCL HEART DISEASE OF [place] COR ART W UNSTABLE ANG PCTRS] Onset: [...] Facility CNCOon 06-02-2023 CNCO Letter Text Normal [facility] CNPNon 06-02-2023 CNPN Telephone (CARDMN) DACIA FINLEY ([id number]) 1960 F Date Time Provider Department 06/02/23 CELIA MATOS ([facility]) CARDMN During your visit today, we recorded [...] Status:Closed by CELIA LILLY on 06/02/23 Normal [facility] FREE T3on 09-09-2022 FREE T3 3.53 pg/mlL Normal 2.18-3.98 [facility] Comment on above: Performed By: #### T 4, FT3, TSH #### [facility] [address] [place] [address] Dr. Guevara Abraham T4on 09-09-2022 T4 [Mass/Vol] 10.20 ug/dL Normal 4.80-13.90 [facility] Comment on above: Performed By: #### T 4, FT3, TSH #### [facility] [address] [place] [address] Dr. Guevara Abraham TSHon 09-09-2022 TSH 7.509 uIU/mL Critically high 0.358-3.74 0 [facility] Comment on above: Performed By: #### T 4, FT3, TSH #### [facility] [address] [place] [address] Dr. Guevara Abraham OCC BLD IMMUNO SCREENon 08-06 OCCULT BLOOD Negative Normal NEGATIVE [facility] Comment on above: Performed By: #### A NAIFA #### [facility] [address] [place] [address] Dr. Guevara Abraham CODI by IFAon 08-19-2022 Antinuclear Antibodies, IFA Negative Normal [facility] Comment on above: Result Comment: Nega tive <1:80 Borderline 1:80 Positive >1:80 ICAP nomenclature: AC-0 For more information about Hep-2 cell patterns use ANApatterns.org, the official website for the International Consensus on Antinuclear Antibody (CODI) Patterns (ICAP). Performed By: #### A NAIFA #### [facility] [address] [place] [address] Dr. Guevara Abraham ANTISTREPTOLYSIN O AB (ASO)o n 08-16-2022 Antistreptolysin O Ab 248.1 IU/mL Critically high 0.0-200.0 [facility] Comment on above: Performed By: #### A SOAB #### [facility] [address] [place] [address] Dr. Guevara Abraham C-REACTIVE PROTEINS (HS)on 0 08-16-2022 C-Reactive Protein, Cardiac 0.32 mg/L Normal 0.00-3.00 [facility] Comment on above: Result Comment: Rela tive Risk for Future Cardiovascular Event Low <1.00 Average 1.00 - 3.00 High >3.00 Performed By: #### C RPHS #### [facility] [address] [place] [address] Dr. Guevara Abraham INSULINon 08-16-2022 Insulin 11.3 uIU/mL Normal 2.6-24.9 [facility] Comment on above: Performed By: #### I NSULIN ####[facility] [address] [place], [place] [address]DrCain Abraham RHEUMATOID FACTORon 08-17-19 23 RA Latex Turbid. <10.0 Normal <14.0 [facility] Comment on above: Performed By: #### R F #### [facility] [address] [place] [address] Dr. Guevara Abraham CBC AUTO DIFFon 08-15-2022 BASO # 0.1 103/ul Normal 0.0-0.1 [facility] Comment on above: Performed By: #### C BC ####[facility] [address] [place], [place] [address]Dr. Guevara Abraham Basophils/100 WBC (Bld) 0.6 % Normal 0.2-2.0 [facility] Comment on above: Performed By: #### C BC ####[facility] [address] [place], [place] [address]DrCain Abraham EO # 0.2 103/ul Normal 0.0-0.7 [facility] Comment on above: Performed By: #### C BC ####[facility] [address] [place], [place] [address]DrCain Abraham Eosinophils/100 WBC (Bld) 1.9 % Normal 0.9-7.0 [facility] Comment on above: Performed By: #### C BC ####[facility] [address] [place], [place] [address]DrCain Abraham Erythrocyte distribution width (RBC) [Ratio] 12.8 % Normal 11.0-15.0 [facility] Comment on above: Performed By: #### C BC ####[facility] [address] [place] [address]Dr. Zabrinameño Abraham Hematocrit (Bld) [Volume fraction] 43.1 % Normal 36.0-48.0 [facility] Comment on above: Performed By: #### C BC ####[facility] [address] [place] [address]Dr. Guevara Abraham Hemoglobin (Bld) [Mass/Vol] 14.5 g/dL Normal 12.0-16.0 [facility] Comment on above: Performed By: #### C BC ####[facility] [address] [place], [place] [address]Dr. Guevara Abraham IG # 0.03 10e3/ul Normal 0.00-0.03 [facility] Comment on above: Performed By: #### C BC ####[facility] [address] [place], [place] [address]Dr. Guevara Abraham IG % 0.3 % Normal 0.0-0.5 [facility] Comment on above: Performed By: #### C BC ####[facility] Afx[address] [place], [place] [address]Dr. Guevara Abraham LYMPH # 3.3 103/ul Normal 1.2-3.8 [facility] Comment on above: Performed By: #### C BC ####[facility] [address] [place], [place] [address]Dr. Guevara Abraham Lymphocytes/100 WBC (Bld) 34.2 % Normal 20.5-60.0 [facility] Comment on above: Performed By: #### C BC ####[facility] [address] [place] [address]Dr. Guevara Abraham MANUAL DIFF REQ NO Normal [facility] Comment on above: Performed By: #### C BC ####[facility] Y[address] [place], [place] [address]DrCain Abraham MCH (RBC) [Entitic mass] 31.4 pg Normal 26.7-34.0 [facility] Comment on above: Performed By: #### C BC ####[facility] [address] [place], [place] [address]Dr. Guevara Abraham MCHC (RBC) [Mass/Vol] 33.6 g/dL Normal 29.9-35.2 [facility] Comment on above: Performed By: #### C BC ####[facility] [address] [place] [address]Dr. Guevara Abraham MCV (RBC) [Entitic vol] 93.3 fL Normal 81.0-99.0 [facility] Comment on above: Performed By: #### C BC ####[facility] [address] [place], [place] [address]Dr. Guevara Abraham MONO # 0.7 103/ul Normal 0.3-0.8 [facility] Comment on above: Performed By: #### C BC ####[facility] [address] [place], [place] [address]Dr. Guevara Abraham Monocytes/100 WBC (Bld) 7.3 % Normal 1.7-12.0 [facility] Comment on above: Performed By: #### C BC ####[facility] [address] [place], [place] [address]Dr. Guevara Abraham NEUT # 5.3 103/ul Normal 1.4-6.5 [facility] Comment on above: Performed By: #### C BC ####[facility] [address] [place], [place] [address]Dr. Guevara Abraham Neutrophils/100 WBC (Bld) 55.7 % Normal 43.0-75.0 [facility] Comment on above: Performed By: #### C BC ####[facility] Tg[address] [place], [place] [address]Dr. Guevara Abraham Platelet mean volume (Bld) [Entitic vol] 11.5 fL Normal 9.5-13.5 [facility] Comment on above: Performed By: #### C BC ####[facility] [address] [place], [place] [address]Dr. Guevara Abraham PLT 211 103/ul Normal 150-450 [facility] Comment on above: Performed By: #### C BC ####[facility] [address] [place], [place] [address]Dr. Guevara Abraham RBC 4.62 106/ul Normal 4.20-5.40 [facility] Comment on above: Performed By: #### C BC ####[facility] [address] [place], [place] [address]Oj. Guevara Abraham WBC 9.5 103/ul Normal 4.0-11.0 [facility] Comment on above: Performed By: #### C BC ####[facility] [address] [place] [address]Dr. Guevara Abraham CRPon 08-15-2022 CRP [Mass/Vol] mg/L Normal <=1.0 [facility] Comment on above: Performed By: #### C RP, T7, CMP, URIC, LIPID, TSH ####[facility] [address] [place], [place] [address]He. Gue[address]a Abraham CT LUNG CANCER SCREENINGon 0 [...] CORINA CERVANTES Date: 2022-08-15 09:25 Normal [facility] FREE THYROXINE INDEX T7on FTI 3.00 Normal 1.30-4.50 [facility] Comment on above: Performed By: #### C RP, T7, CMP, URIC, LIPID, TSH ####[facility] [address] [place] [address]Dr. Guevara Abraham T3U 33.0 % Normal 30.0-39.0 [facility] Comment on above: Performed By: #### C RP, T7, CMP, URIC, LIPID, TSH ####[facility] [address] [place] [address]Dr. Guevara Abraham T4 [Mass/Vol] 9.10 ug/dL Normal 4.80-13.90 [facility] Comment on above: Performed By: #### C RP, T7, CMP, URIC, LIPID, TSH ####[facility] [address] [place] [address]DrCain Abraham GLYCOHEMOGLOBIN A1Con 2022 ADA RECOMMENDATION SEE BELOW Normal [facility] Comment on above: Result Comment: ADA RECOMMENDED LIMIT 4.0 - 6.0 ADA THERAPEUTIC TARGET < 7.0 ACTION SUGGESTED > 7.0 Performed By: #### A 1C ####[facility] [address] [place] [address]Dr. Guevara Abraham Glucose [Mass/Vol] 120 mg/dL Normal [facility] Comment on above: Performed By: #### A 1C ####[facility] [address] [place] [address]Dr. Guevara Abraham HbA1c (Bld) [Mass fraction] 5.8 % Normal 4.5-6.2 [facility] Comment on above: Performed By: #### A 1C ####[facility] [address] [place] [address]DrCain Abraham IRONon 08-15-2022 Iron [Mass/Vol] 124.0 ug/dL Normal 50.0-170.0 [facility] Comment on above: Performed By: #### I MIAH #### [facility] [address] [place] [address] [address] Guevara Abraham LIPID PROFILEon 08-15-2022 CHOL-HDL RATIO NORM SEE BELOW Normal [facility] Comment on above: Result Comment: 3.3 - 4.4 LOW RISK 4.4 - 7.1 AVERAGE RISK 7.1 - 11.0 MODERATE RISK >11.0 HIGH RISK Performed By: #### C RP, T7, CMP, URIC, LIPID, TSH ####[facility] [address] [place] [address]Dr. Guevara Abraham Cholesterol [Mass/Vol] 132 mg/dL Normal <=200 [facility] Comment on above: Performed By: #### C RP, T7, CMP, URIC, LIPID, TSH ####[facility] [address] [place] [address]Dr. Guevara Abraham Cholesterol in HDL [Mass/Vol] 44 mg/dL Normal 40-60 [facility] Comment on above: Performed By: #### C RP, T7, CMP, URIC, LIPID, TSH ####[facility] [address] [place] [address]Dr. Guevara Abraham Cholesterol in LDL [Mass/Vol] 70.8 mg/dL Normal [facility] Comment on above: Performed By: #### C RP, T7, CMP, URIC, LIPID, TSH ####[facility] [address] [place] [address]Dr. Guevara Abraham Cholesterol.total /Cholesterol in HDL [Mass ratio] 3.0 {ratio} Normal [facility] Comment on above: Performed By: #### C RP, T7, CMP, URIC, LIPID, TSH ####[facility] [address] [place] [address]Dr. Guevara Abraham HDL NORMAL > or = 60 mg/dl - LO W CARDIOVASCULAR RISK <40 mg/dl - HIGH CARDIOVASCULAR RISK Normal [facility] Comment on above: Performed By: #### C RP, T7, CMP, URIC, LIPID, TSH ####[facility] [address] [place] [address]Dr. Guevara Abraham LDL CALC NORMAL SEE BELOW Normal [facility] Comment on above: Result Comment: <100 mg/dl OPTIMAL 100 - 129 mg/dl NEAR OR ABOVE OPTIMAL 130 - 159 mg/dl BORDERLINE HIGH 160 - 189 mg/dl HIGH >190 mg/dl VERY HIGH Performed By: #### C RP, T7, CMP, URIC, LIPID, TSH ####[facility] [address] [place], [place] [address]Hm. Guevara Abraham Triglyceride [Mass/Vol] 86 mg/dL Normal <=150 [facility] Comment on above: Performed By: #### C RP, T7, CMP, URIC, LIPID, TSH ####[facility] [address] [place], [place] [address]Mm. Guevara Abraham VLDL CALC 17.2 mg/dL Normal [facility] Comment on above: Performed By: #### C RP, T7, CMP, URIC, LIPID, TSH ####[facility] [address] [place], [place] [address]Dm. Guevara Abraham MG MAMM SCREEN 3D GRICEL CADon 08-15-2022 MG MAMM SCREEN 3D GRICEL CAD Patient: DACIA FINLEY Exam Date: 08/15/2022 : 1960 Gender:F Ordering : DR RYAN AREVALO . Admission #: [id number] Family : Order #: [id number] CLICK HERE TO VIEW EXAM RADIOLOGY REPORT PROCEDURE: MAMMOGRAM SCREENING 3D BILATERAL CAD COMPARISON: MG MAMM GRICEL SCRN W CAD DIG, 07/04/2015. INDICATIONS: Screening mammography Calculator Name NCI Breast Cancer Risk Assessment Tool 5 Year Breast Cancer Risk Not Reported. Lifetime Breast Cancer Risk Not Reported. Personal Breast Cancer No Personal Ovarian Cancer No Treatments None Family Cancers None LOCATION: [facility] BREAST COMPOSITION: Extremely dense, which [...] MD on 08/15/2022 at 09:49 Normal [facility] PROF 14(COMP METB)on 023 Albumin [Mass/Vol] 3.9 g/dL Normal 3.4-5.0 [facility] Comment on above: Performed By: #### C RP, T7, CMP, URIC, LIPID, TSH ####[facility] [address] [place] [address]Dr. Guevara Abraham Albumin/Globulin [Mass ratio] 1.2 {ratio} Normal [facility] Comment on above: Performed By: #### C RP, T7, CMP, URIC, LIPID, TSH ####[facility] [address] [place] [address]Dr. Guevara Abraham ALP [Catalytic activity/Vol] 66 U/L Normal 46-116 [facility] Comment on above: Performed By: #### C RP, T7, CMP, URIC, LIPID, TSH ####[facility] [address] [place] [address]Dr. Guevara Abraham ALT [Catalytic activity/Vol] 22 U/L Normal 14-59 [facility] Comment on above: Performed By: #### C RP, T7, CMP, URIC, LIPID, TSH ####[facility] [address] [place] [address]Dr. Guevara Abraham Anion gap [Moles/Vol] 12.9 mmol/L Normal [facility] Comment on above: Performed By: #### C RP, T7, CMP, URIC, LIPID, TSH ####[facility] [address] [place] [address]Dr. Guevara Abraham AST [Catalytic activity/Vol] 14 U/L Critically low 15-37 [facility] Comment on above: Performed By: #### C RP, T7, CMP, URIC, LIPID, TSH ####[facility] [address] [place] [address]Dr. Guevara Abraham Bilirubin [Mass/Vol] 0.4 mg/dL Normal 0.2-1.0 [facility] Comment on above: Performed By: #### C RP, T7, CMP, URIC, LIPID, TSH ####[facility] [address] [place] [address]Dr. Guevara Abraham Calcium [Mass/Vol] 8.8 mg/dL Normal 8.5-10.1 [facility] Comment on above: Performed By: #### C RP, T7, CMP, URIC, LIPID, TSH ####[facility] [address] [place] [address]Dr. Guevara Abraham Chloride [Moles/Vol] 107 mmol/L Normal 98-107 [facility] Comment on above: Performed By: #### C RP, T7, CMP, URIC, LIPID, TSH ####[facility] [address] [place] [address]Dr. Guevara Abraham CO2 [Moles/Vol] 26.8 mmol/L Normal 21.0-32.0 [facility] Comment on above: Performed By: #### C RP, T7, CMP, URIC, LIPID, TSH ####[facility] [address] [place] [address]Dr. Guevara Abraham Creatinine [Mass/Vol] 0.85 mg/dL Normal 0.55-1.02 [facility] Comment on above: Performed By: #### C RP, T7, CMP, URIC, LIPID, TSH ####[facility] [address] [place] [address]Dr. Guevara Abraham EGFR-AF [place]IZ[place] >60 Normal >=60 [facility] Comment on above: Performed By: #### C RP, T7, CMP, URIC, LIPID, TSH ####[facility] [address] [place] [address]Dr. Guevara Abraham EGFR-NON AF [place]IZ[place] >60 Normal >=60 [facility] Comment on above: Performed By: #### C RP, T7, CMP, URIC, LIPID, TSH ####[facility] [address] [place] [address]Dr. Guevara Abraham Globulin (S) [Mass/Vol] 3.2 g/dL Normal [facility] Comment on above: Performed By: #### C RP, T7, CMP, URIC, LIPID, TSH ####[facility] [address] [place] [address]Dr. Guevara Abraham Glucose [Mass/Vol] 96 mg/dL Normal 74-106 [facility] Comment on above: Performed By: #### C RP, T7, CMP, URIC, LIPID, TSH ####[facility] [address] [place] [address]Dr. Guevara Abraham Potassium [Moles/Vol] 3.7 mmol/L Normal 3.5-5.1 [facility] Comment on above: Performed By: #### C RP, T7, CMP, URIC, LIPID, TSH ####[facility] [address] [place] [address]Dr. Guevara Abraham Protein [Mass/Vol] 7.1 g/dL Normal 6.4-8.2 [facility] Comment on above: Performed By: #### C RP, T7, CMP, URIC, LIPID, TSH ####[facility] [address] [place] [address]Dr. Guevara Abraham Sodium [Moles/Vol] 143 mmol/L Normal 136-145 [facility] Comment on above: Performed By: #### C RP, T7, CMP, URIC, LIPID, TSH ####[facility] [address] [place] [address]Dr. Guevara Abraham Urea nitrogen [Mass/Vol] 13.0 mg/dL Normal 7.0-18.0 [facility] Comment on above: Performed By: #### C RP, T7, CMP, URIC, LIPID, TSH ####[facility] [address] [place] [address]Dr. Guevara Abraham Urea nitrogen/Creatini ne [Mass ratio] 15.3 mg/mg Normal [facility] Comment on above: Performed By: #### C RP, T7, CMP, URIC, LIPID, TSH ####[facility] [address] [place] [address]Dr. Guevara Abraham TSHon 08-15-2022 TSH 5.411 uIU/mL Critically high 0.358-3.74 0 [facility] Comment on above: Performed By: #### C RP, T7, CMP, URIC, LIPID, TSH ####[facility] [address] [place] [address]Dr. Guevara Abraham URIC ACID SERUMon 08-15-2022 Urate [Mass/Vol] 3.1 mg/dL Normal 2.6-6.0 [facility] Comment on above: Performed By: #### C RP, T7, CMP, URIC, LIPID, TSH ####[facility] [address] [place], [place] [address]VuCain Abraham XR DEXA BONE DENSITYon 08-15 XR [...] MEERA HODGE Date: 2022-08-15 09:00 Normal [facility] XR LSPINE MIN 4 VIEWSon [...] CORINA CERVANTES Date: 2022-08-15 09:04 Normal [facility] MR head/brain wo conon 07-19 MR head/brain wo con [facility] [place] [address] MRI Report Signed Patient: Dacia Finley MR#: [id number] : 1960 Acct:[id number] Age/Sex: 60 / F ADM Date: 07/19/21 Loc: [facility] Room: Type: [facility] Attending Dr: Himanshu Acosta DO Ordering Provider: [...] Jack Giles M.D.07/19/2021 1:11 PM Dictation Location: [place] [address] Transcribed By: [facility] 07/19/21 1311 Dictated By: Jack Giles II, MD 07/19/21 1302 Signed By: 07/19/21 1311 Normal [facility] Physician Referralon 021 Physician Referral [id number] Normal [facility] Basic Metabolic Profon 10-26 (cont.) Normal [facility] Comment on above: Result Comment: Aver age GFR for 50-59 years old: 93 mL/min/1.73sq m Chronic Kidney Disease: <60 mL/min/1.73sq m Kidney failure: <15 mL/min/1.73sq m eGFR calculated using average adult body mass. Additional eGFR calculator available at: http://www.[employer]/multiple_crcl_2012.htm Performed By: #### C DP, BMP, CRP, PRCAL #### [facility] [address] [place] [address] Pathology Tech: Sabas Lamb MD Anion gap [Moles/Vol] 9 mmol/L Normal 9-17 [facility] Comment on above: Performed By: #### C DP, BMP, CRP, PRCAL #### [facility] [address] [place] [address] Pathology Tech: Sabas Lamb MD Calcium [Mass/Vol] 8.3 mg/dL Low 8.6-10.4 [facility] Comment on above: Performed By: #### C DP, BMP, CRP, PRCAL #### [facility] [address] [place] [address] Pathology Tech: Sabas Lamb MD Chloride [Moles/Vol] 100 mmol/L Normal 98-107 [facility] Comment on above: Performed By: #### C DP, BMP, CRP, PRCAL #### [facility] [address] [place] [address] Pathology Tech: Sabas Lamb MD CO2 [Moles/Vol] 26 mmol/L Normal 20-31 [facility] Comment on above: Performed By: #### C DP, BMP, CRP, PRCAL #### [facility] [address] [place] [address] Pathology Tech: Sabas Lamb MD Creatinine [Mass/Vol] 0.26 mg/dL Low 0.50-0.90 [facility] Comment on above: Performed By: #### C DP, BMP, CRP, PRCAL #### [address] [address] Pathology Tech: Sabas Lamb MD GFR, Amer >60 Normal >60 [facility] Comment on above: Performed By: #### C DP, BMP, CRP, PRCAL #### [facility] [address] [place] [address] Pathology Tech: Sabas Lamb MD GFR,non Amer >60 Normal >60 [facility] Comment on above: Performed By: #### C DP, BMP, CRP, PRCAL #### [facility] [address] [place] [address] Pathology Tech: Sabas Lamb MD Glucose [Mass/Vol] 112 mg/dL High 70-99 [facility] Comment on above: Performed By: #### C DP, BMP, CRP, PRCAL #### [address] [address] Pathology Tech: Sabas Lamb MD Potassium [Moles/Vol] 3.1 mmol/L Low 3.7-5.3 [facility] Comment on above: Performed By: #### C DP, BMP, CRP, PRCAL #### [facility] [address] [place] [address] Pathology Tech: Sabas Lamb MD Sodium [Moles/Vol] 135 mmol/L Normal 135-144 [facility] Comment on above: Performed By: #### C DP, BMP, CRP, PRCAL #### [facility] [address] [place] [address] Pathology Tech: Sabas Lamb MD Urea nitrogen [Mass/Vol] 6 mg/dL Normal 6-20 [facility] Comment on above: Performed By: #### C DP, BMP, CRP, PRCAL #### [facility] [address] [place] [address] Pathology Tech: Sabas Lamb MD BUN/CRE Ratio NOT REPORTED Normal 9-20 [facility] Comment on above: Performed By: #### C DP, BMP, CRP, PRCAL #### [address] [address] Pathology Tech: Sabas Lamb MD Staging: NOT REPORTED Normal [facility] Comment on above: Performed By: #### C DP, BMP, CRP, PRCAL #### [place] [address] Pathology Tech: Sabas Lamb MD CBC with Diffon 10-26-2018 Abs. Basophil <0.03 Normal 0.00-0.20 [facility] [facility] Comment on above: Performed By: #### C DP, BMP, CRP, PRCAL #### [place] [address] Pathology Tech: Sabas Lamb MD Abs.Imm.Granulocy te 0.03 k/uL Normal 0.00-0.30 [facility] Comment on above: Performed By: #### C DP, BMP, CRP, PRCAL #### [place] [address] Pathology Tech: Sabas Lamb MD Abs.Neutrophil (Seg) 7.04 k/uL Normal 1.50-8.10 [facility] Comment on above: Performed By: #### C DP, BMP, CRP, PRCAL #### [place] [address] Pathology Tech: Sabas Lamb MD Basophils/100 WBC (Bld) 0 % Normal 0-2 [facility] Comment on above: Performed By: #### C DP, BMP, CRP, PRCAL #### [address] [address] Pathology Tech: Sabas Lamb MD Eosinophils (Bld) [#/Vol] 0.08 10*3/uL Normal 0.00-0.44 [facility] Comment on above: Performed By: #### C DP, BMP, CRP, PRCAL #### [address] [address] Pathology Tech: Sabas Lamb MD Eosinophils/100 WBC (Bld) 1 % Normal 1-4 [facility] Comment on above: Performed By: #### C DP, BMP, CRP, PRCAL #### [place] [address] Pathology Tech: Sabas Lamb MD Erythrocyte distribution width (RBC) [Ratio] 12.0 % Normal 11.8-14.4 [facility] Comment on above: Performed By: #### C DP, BMP, CRP, PRCAL #### [place] [address] Pathology Tech: Sabas Lamb MD Hematocrit (Bld) [Volume fraction] 32.3 % Low 36.3-47.1 [facility] Comment on above: Performed By: #### C DP, BMP, CRP, PRCAL #### [place] [address] Pathology Tech: Sabas Lamb MD Hemoglobin (Bld) [Mass/Vol] 10.5 g/dL Low 11.9-15.1 [facility] Comment on above: Performed By: #### C DP, BMP, CRP, PRCAL #### [facility] [address] [place] [address] Pathology Tech: Sabas Lamb MD Immature granulocytes (Bld) [#/Vol] 0 % Normal 0 [facility] Comment on above: Performed By: #### C DP, BMP, CRP, PRCAL #### [facility] [address] [place] [address] Pathology Tech: Sabas Lamb MD Lymphocytes (Bld) [#/Vol] 1.45 10*3/uL Normal 1.10-3.70 [facility] Comment on above: Performed By: #### C DP, BMP, CRP, PRCAL #### [address] [address] Pathology Tech: Sabas Lamb MD Lymphocytes/100 WBC (Bld) 16 % Low 24-43 [facility] Comment on above: Performed By: #### C DP, BMP, CRP, PRCAL #### [place] [address] Pathology Tech: Sabas Lamb MD MCH (RBC) [Entitic mass] 31.3 pg Normal 25.2-33.5 [facility] Comment on above: Performed By: #### C DP, BMP, CRP, PRCAL #### [place] [address] Pathology Tech: Sabas Lamb MD MCHC (RBC) [Mass/Vol] 32.5 g/dL Normal 28.4-34.8 [facility] Comment on above: Performed By: #### C DP, BMP, CRP, PRCAL #### [address] [address] Pathology Tech: Sabas Lamb MD MCV (RBC) [Entitic vol] 96.1 fL Normal 82.6-102.9 [facility] Comment on above: Performed By: #### C DP, BMP, CRP, PRCAL #### [place] [address] Pathology Tech: Sabas Lamb MD Monocytes (Bld) [#/Vol] 0.54 10*3/uL Normal 0.10-1.20 [facility] Comment on above: Performed By: #### C DP, BMP, CRP, PRCAL #### [address] [address] Pathology Tech: Sabas Lamb MD Monocytes/100 WBC (Bld) 6 % Normal 3-12 [facility] Comment on above: Performed By: #### C DP, BMP, CRP, PRCAL #### [address] [address] Pathology Tech: Sabas Lamb MD Neutrophil (Seg) 77 % High 36-65 [facility] Comment on above: Performed By: #### C DP, BMP, CRP, PRCAL #### [address] [address] Pathology Tech: aSbas Lamb MD NRBC Automated 0.0 per 100 WBC Normal 0.0 [facility] Comment on above: Performed By: #### C DP, BMP, CRP, PRCAL #### [address] [address] Pathology Tech: Sabas Lamb MD Platelet mean volume (Bld) [Entitic vol] 11.7 fL Normal 8.1-13.5 [facility] Comment on above: Performed By: #### C DP, BMP, CRP, PRCAL #### [address] [address] Pathology Tech: Sabas Lamb MD Platelets (Bld) [#/Vol] 261 10*3/uL Normal 138-453 [facility] Comment on above: Performed By: #### C DP, BMP, CRP, PRCAL #### [address] [address] Pathology Tech: Sabas Lamb MD RBC (Bld) [#/Vol] 3.36 10*6/uL Low 3.95-5.11 [facility] Comment on above: Performed By: #### C DP, BMP, CRP, PRCAL #### [address] [address] Pathology Tech: Sabas Lamb MD WBC (Bld) [#/Vol] 9.2 10*3/uL Normal 3.5-11.3 [facility] Comment on above: Performed By: #### C DP, BMP, CRP, PRCAL #### [address] [address] Pathology Tech: Sabas Lamb MD Auto Diff Performed NOT REPORTED Normal [facility] Comment on above: Performed By: #### C DP, BMP, CRP, PRCAL #### [address] [address] Pathology Tech: Sabas Lamb MD Platelets (Bld) [#/Vol] NOT REPORTED Normal [facility] Comment on above: Performed By: #### C DP, BMP, CRP, PRCAL #### [address] [address] Pathology Tech: Sabas Lamb MD RBC morphology finding Nom (Bld) NOT REPORTED Normal [facility] Comment on above: Performed By: #### C DP, BMP, CRP, PRCAL #### [address] [address] Pathology Tech: Sabas Lamb MD WBC Morphology NOT REPORTED Normal [facility] Comment on above: Performed By: #### C DP, BMP, CRP, PRCAL #### [address] [address] Pathology Tech: Sabas Lamb MD Basic Metabolic Profon 10-25 (cont.) Normal [facility] Comment on above: Result Comment: Aver age GFR for 50-59 years old: 93 mL/min/1.73sq m Chronic Kidney Disease: <60 mL/min/1.73sq m Kidney failure: <15 mL/min/1.73sq m eGFR calculated using average adult body mass. Additional eGFR calculator available at: http://www.[email or web address]/multiple_crcl_2011.htm Performed By: #### C DP, BMP, CRP, PRCAL #### [facility] [address] [place] [address] Pathology Tech: Sabas Lamb MD Anion gap [Moles/Vol] 9 mmol/L Normal 9-17 [facility] Comment on above: Performed By: #### C DP, BMP, CRP, PRCAL #### [address] [address] Pathology Tech: Sabas Lamb MD Calcium [Mass/Vol] 8.5 mg/dL Low 8.6-10.4 [facility] Comment on above: Performed By: #### C DP, BMP, CRP, PRCAL #### [address] [address] Pathology Tech: Sabas Lamb MD Chloride [Moles/Vol] 100 mmol/L Normal 98-107 [facility] Comment on above: Performed By: #### C DP, BMP, CRP, PRCAL #### [facility] [address] [place] [address] Pathology Tech: Sabas Lamb MD CO2 [Moles/Vol] 28 mmol/L Normal 20-31 [facility] Comment on above: Performed By: #### C DP, BMP, CRP, PRCAL #### [facility] [address] [place] [address] Pathology Tech: Sabas Lamb MD Creatinine [Mass/Vol] 0.31 mg/dL Low 0.50-0.90 [facility] Comment on above: Performed By: #### C DP, BMP, CRP, PRCAL #### [facility] [address] [place] [address] Pathology Tech: Sabas Lamb MD GFR, Amer >60 Normal >60 [facility] Comment on above: Performed By: #### C DP, BMP, CRP, PRCAL #### [facility] [address] [place] [address] Pathology Tech: Sabas Lamb MD GFR,non Amer >60 Normal >60 [facility] Comment on above: Performed By: #### C DP, BMP, CRP, PRCAL #### [address] [address] Pathology Tech: Sabas Lamb MD Glucose [Mass/Vol] 111 mg/dL High 70-99 [facility] Comment on above: Performed By: #### C DP, BMP, CRP, PRCAL #### [address] [address] Pathology Tech: Sabas Lamb MD Potassium [Moles/Vol] 3.4 mmol/L Low 3.7-5.3 [facility] Comment on above: Performed By: #### C DP, BMP, CRP, PRCAL #### [address] [address] Pathology Tech: Sabas Lamb MD Sodium [Moles/Vol] 137 mmol/L Normal 135-144 [facility] Comment on above: Performed By: #### C DP, BMP, CRP, PRCAL #### [facility] [address] [place] [address] Pathology Tech: Sabas Lamb MD Urea nitrogen [Mass/Vol] 9 mg/dL Normal 6-20 [facility] Comment on above: Performed By: #### C DP, BMP, CRP, PRCAL #### [facility] [address] [place] [address] Pathology Tech: Sabas Lamb MD BUN/CRE Ratio NOT REPORTED Normal -20 [facility] Comment on above: Performed By: #### C DP, BMP, CRP, PRCAL #### [facility] [address] [place] [address] Pathology Tech: Sabas Lamb MD Staging: NOT REPORTED Normal [facility] Comment on above: Performed By: #### C DP, BMP, CRP, PRCAL #### [place] [address] Pathology Tech: Sabas Lamb MD CBC with Diffon 10-25-2018 Abs. Basophil 0.03 k/uL Normal 0.00-0.20 [facility] Comment on above: Performed By: #### C DP, BMP, CRP, PRCAL #### [place] [address] Pathology Tech: Sabas Lamb MD Abs.Imm.Granulocy te 0.05 k/uL Normal 0.00-0.30 [facility] Comment on above: Performed By: #### C DP, BMP, CRP, PRCAL #### [place] [address] Pathology Tech: Sabsa Lamb MD Abs.Neutrophil (Seg) 10.20 k/uL High 1.50-8.10 [facility] Comment on above: Performed By: #### C DP, BMP, CRP, PRCAL #### [place] [address] Pathology Tech: Sabas Lamb MD Basophils/100 WBC (Bld) 0 % Normal 0-2 [facility] Comment on above: Performed By: #### C DP, BMP, CRP, PRCAL #### [place] [address] Pathology Tech: Sabas Lamb MD Eosinophils (Bld) [#/Vol] 0.04 10*3/uL Normal 0.00-0.44 [facility] Comment on above: Performed By: #### C DP, BMP, CRP, PRCAL #### [place] [address] Pathology Tech: Sabas Lamb MD Eosinophils/100 WBC (Bld) 0 % Low 1-4 [facility] Comment on above: Performed By: #### C DP, BMP, CRP, PRCAL #### [address] [address] Pathology Tech: Sabas Lamb MD Erythrocyte distribution width (RBC) [Ratio] 11.9 % Normal 11.8-14.4 [facility] Comment on above: Performed By: #### C DP, BMP, CRP, PRCAL #### [place] [address] Pathology Tech: Sabas Lamb MD Hematocrit (Bld) [Volume fraction] 31.5 % Low 36.3-47.1 [facility] Comment on above: Performed By: #### C DP, BMP, CRP, PRCAL #### [place] [address] Pathology Tech: Sabas Lamb MD Hemoglobin (Bld) [Mass/Vol] 10.4 g/dL Low 11.9-15.1 [facility] Comment on above: Performed By: #### C DP, BMP, CRP, PRCAL #### [address] [address] Pathology Tech: Sabas Lamb MD Immature granulocytes (Bld) [#/Vol] 0 % Normal 0 [facility] Comment on above: Performed By: #### C DP, BMP, CRP, PRCAL #### [address] [address] Pathology Tech: Sabas Lamb MD Lymphocytes (Bld) [#/Vol] 0.96 10*3/uL Low 1.10-3.70 [facility] Comment on above: Performed By: #### C DP, BMP, CRP, PRCAL #### [address] [address] Pathology Tech: Sabas Lamb MD Lymphocytes/100 WBC (Bld) 8 % Low 24-43 [facility] Comment on above: Performed By: #### C DP, BMP, CRP, PRCAL #### [address] [address] Pathology Tech: Sabas Lamb MD MCH (RBC) [Entitic mass] 31.9 pg Normal 25.2-33.5 [facility] Comment on above: Performed By: #### C DP, BMP, CRP, PRCAL #### [address] [address] Pathology Tech: Sabas Lamb MD MCHC (RBC) [Mass/Vol] 33.0 g/dL Normal 28.4-34.8 [facility] Comment on above: Performed By: #### C DP, BMP, CRP, PRCAL #### [address] [address] Pathology Tech: Sabas Lamb MD MCV (RBC) [Entitic vol] 96.6 fL Normal 82.6-102.9 [facility] Comment on above: Performed By: #### C DP, BMP, CRP, PRCAL #### [address] [address] Pathology Tech: Sabas Lamb MD Monocytes (Bld) [#/Vol] 0.75 10*3/uL Normal 0.10-1.20 [facility] Comment on above: Performed By: #### C DP, BMP, CRP, PRCAL #### [address] [address] Pathology Tech: Sabas Lamb MD Monocytes/100 WBC (Bld) 6 % Normal 3-12 [facility] Comment on above: Performed By: #### C DP, BMP, CRP, PRCAL #### [address] [address] Pathology Tech: Sabas Lamb MD Neutrophil (Seg) 86 % High 36-65 [facility] Comment on above: Performed By: #### C DP, BMP, CRP, PRCAL #### [address] [address] Pathology Tech: Sabas Labm MD NRBC Automated 0.0 per 100 WBC Normal 0.0 [facility] Comment on above: Performed By: #### C DP, BMP, CRP, PRCAL #### [address] [address] Pathology Tech: Sabas Lamb MD Platelet mean volume (Bld) [Entitic vol] 11.4 fL Normal 8.1-13.5 [facility] Comment on above: Performed By: #### C DP, BMP, CRP, PRCAL #### [address] [address] Pathology Tech: Sabas Lamb MD Platelets (Bld) [#/Vol] 238 10*3/uL Normal 138-453 [facility] Comment on above: Performed By: #### C DP, BMP, CRP, PRCAL #### [address] [address] Pathology Tech: Sabas Lamb MD RBC (Bld) [#/Vol] 3.26 10*6/uL Low 3.95-5.11 [facility] Comment on above: Performed By: #### C DP, BMP, CRP, PRCAL #### [address] [address] Pathology Tech: Sabas Lamb MD WBC (Bld) [#/Vol] 12.0 10*3/uL High 3.5-11.3 [facility] Comment on above: Performed By: #### C DP, BMP, CRP, PRCAL #### [address] [address] Pathology Tech: Sabas Lamb MD Auto Diff Performed NOT REPORTED Normal [facility] Comment on above: Performed By: #### C DP, BMP, CRP, PRCAL #### [facility] [address] [place] [address] Pathology Tech: Sabas Lamb MD Platelets (Bld) [#/Vol] NOT REPORTED Normal [facility] Comment on above: Performed By: #### C DP, BMP, CRP, PRCAL #### [facility] [address] [place] [address] Pathology Tech: Sabas Lamb MD RBC morphology finding Nom (Bld) NOT REPORTED Normal [facility] Comment on above: Performed By: #### C DP, BMP, CRP, PRCAL #### [facility] [address] [place] [address] Pathology Tech: Sabas Lamb MD WBC Morphology NOT REPORTED Normal [facility] Comment on above: Performed By: #### C DP, BMP, CRP, PRCAL #### [facility] [address] [place] [address] Pathology Tech: Sabas Lamb MD Lipid Profileon 10-25-2018 Cholesterol [Mass/Vol] 114 mg/dL Normal <200 [facility] Comment on above: Result Comment: Cholesterol Guidelines: <200 Desirable 200-240 Borderline >240 Undesirable Performed By: #### C DP, BMP, CRP, PRCAL #### [address] [address] Pathology Tech: Sabas Lamb MD Cholesterol in HDL [Mass/Vol] 37 mg/dL Low >40 [facility] Comment on above: Result Comment: HDL Guidelines: <40 Undesirable 40-59 Borderline >59 Desirable Performed By: #### C DP, BMP, CRP, PRCAL #### [address] [address] Pathology Tech: Sabas Lamb MD Cholesterol in LDL [Mass/Vol] 63 mg/dL Normal 0-130 [facility] Comment on above: Result Comment: LDL Guidelines: <100 Desirable 100-129 Near to/above Desirable 130-159 Borderline >159 Undesirable Direct (measured) LDL and calculated LDL are not interchangeable tests. Performed By: #### C DP, BMP, CRP, PRCAL #### [facility] [address] [place] [address] Pathology Tech: Sabas Lamb MD Cholesterol.total /Cholesterol in HDL [Mass ratio] 3.1 {ratio} Normal <5 [facility] Comment on above: Performed By: #### C DP, BMP, CRP, PRCAL #### [facility] [address] [place] [address] Pathology Tech: Sabas Lamb MD Triglyceride [Mass/Vol] 71 mg/dL Normal <150 [facility] Comment on above: Result Comment: Triglyceride Guidelines: <150 Desirable 150-199 Borderline 200-499 High >499 Very high Based on AHA Guidelines for fasting triglyceride, March 2012. Performed By: #### C DP, BMP, CRP, PRCAL #### [facility] [address] [place] [address] Pathology Tech: Sabas Lamb MD Cholesterol in VLDL [Mass/Vol] NOT REPORTED Normal 1-30 [facility] Comment on above: Performed By: #### C DP, BMP, CRP, PRCAL #### [facility] [address] [place] [address] Pathology Tech: Sabas Lamb MD Specimen Rejectionon 019 ----- NOT REPORTED Normal [facility] Comment on above: Performed By: #### C DP, BMP, CRP, PRCAL #### [facility] [address] [place] [address] Pathology Tech: Sabas Lamb MD Reason for rejection Unable to perform testing: Specimen mislabeled. Normal [facility] Comment on above: Performed By: #### C DP, BMP, CRP, PRCAL #### [address] [address] Pathology Tech: Sabas Lamb MD Source of sample .BLOOD Normal [facility] Comment on above: Performed By: #### C DP, BMP, CRP, PRCAL #### [address] [address] Pathology Tech: Sabas Lamb MD Test ordered BMP CDP Normal [facility] Comment on above: Performed By: #### C DP, BMP, CRP, PRCAL #### [address] [address] Pathology Tech: Sabas Lamb MD APTTon 10-24-2018 aPTT Coag (Bld) [Time] 26.3 s Normal 20.5-30.5 [facility] Comment on above: Performed By: #### C DP, BMP, CRP, PRCAL #### [address] [address] Pathology Tech: Sabas Lamb MD Basic Metabolic Profon 10-24 (cont.) [facility] Comment on above: Result Comment: Aver age GFR for 50-59 years old: 93 mL/min/1.73sq m Chronic Kidney Disease: <60 mL/min/1.73sq m Kidney failure: <15 mL/min/1.73sq m eGFR calculated using average adult body mass. Additional eGFR calculator available at: http://[email or web address]/multiple_crcl_2012.htm Performed By: #### C DP, BMP, CRP, PRCAL #### [address] [address] Pathology Tech: Sabas Lamb MD Anion gap [Moles/Vol] 14 mmol/L Normal 9-17 [facility] Comment on above: Performed By: #### C DP, BMP, CRP, PRCAL #### [address] [id number] Pathology Tech: Sabas Lamb MD Calcium [Mass/Vol] 9.1 mg/dL Normal 8.6-10.4 [facility] Comment on above: Performed By: #### C DP, BMP, CRP, PRCAL #### [facility] [address] [place] [address] Pathology Tech: Sabas Lamb MD Chloride [Moles/Vol] 101 mmol/L Normal 98-107 [facility] Comment on above: Performed By: #### C DP, BMP, CRP, PRCAL #### [facility] [address] [place] [address] Pathology Tech: Sabas Lamb MD CO2 [Moles/Vol] 23 mmol/L Normal 20-31 [facility] Comment on above: Performed By: #### C DP, BMP, CRP, PRCAL #### [facility] [address] [place] [address] Pathology Tech: Sabas Lamb MD Creatinine [Mass/Vol] 0.34 mg/dL Low 0.50-0.90 [facility] Comment on above: Performed By: #### C DP, BMP, CRP, PRCAL #### [address] [address] Pathology Tech: Sabas Lamb MD GFR, Amer >60 Normal >60 [facility] Comment on above: Performed By: #### C DP, BMP, CRP, PRCAL #### [facility] [address] [place] [address] Pathology Tech: Sabas Lamb MD GFR,non Amer >60 Normal >60 [facility] Comment on above: Performed By: #### C DP, BMP, CRP, PRCAL #### [facility] [address] [place] [address] Pathology Tech: Sabas Lamb MD Glucose [Mass/Vol] 86 mg/dL Normal 70-99 [facility] Comment on above: Performed By: #### C DP, BMP, CRP, PRCAL #### [facility] [address] [place] [address] Pathology Tech: Sabas Lamb MD Potassium [Moles/Vol] 3.9 mmol/L Normal 3.7-5.3 [facility] Comment on above: Performed By: #### C DP, BMP, CRP, PRCAL #### [facility] [address] [place] [address] Pathology Tech: Sabas Lamb MD Sodium [Moles/Vol] 138 mmol/L Normal 135-144 [facility] Comment on above: Performed By: #### C DP, BMP, CRP, PRCAL #### [address] [address] Pathology Tech: Sabas Lamb MD Urea nitrogen [Mass/Vol] 11 mg/dL Normal 6-20 [facility] Comment on above: Performed By: #### C DP, BMP, CRP, PRCAL #### [address] [address] Pathology Tech: Sabas Lamb MD BUN/CRE Ratio NOT REPORTED Normal -20 [facility] Comment on above: Performed By: #### C DP, BMP, CRP, PRCAL #### [facility] [address] [place] [address] Pathology Tech: Sabas Lamb MD Staging: NOT REPORTED Normal [facility] Comment on above: Performed By: #### C DP, BMP, CRP, PRCAL #### [facility] [address] [place] [address] Pathology Tech: Sabas Lamb MD CBC with Diffon 10-24-2018 Abs. Basophil 0.03 k/uL Normal 0.00-0.20 [facility] Comment on above: Performed By: #### C DP, BMP, CRP, PRCAL #### [address] [address] Pathology Tech: Sabas Lamb MD Abs.Imm.Granulocy te 0.05 k/uL Normal 0.00-0.30 [facility] Comment on above: Performed By: #### C DP, BMP, CRP, PRCAL #### [place] [address] Pathology Tech: Sabas Lamb MD Abs.Neutrophil (Seg) 12.06 k/uL High 1.50-8.10 [facility] Comment on above: Performed By: #### C DP, BMP, CRP, PRCAL #### [place] [address] Pathology Tech: Sabas Lamb MD Basophils/100 WBC (Bld) 0 % Normal 0-2 [facility] Comment on above: Performed By: #### C DP, BMP, CRP, PRCAL #### [address] [address] Pathology Tech: Sabas Lamb MD Eosinophils (Bld) [#/Vol] 10*3/uL Normal 0.00-0.44 [facility] Comment on above: Performed By: #### C DP, BMP, CRP, PRCAL #### [address] [address] Pathology Tech: Sabas Lamb MD Eosinophils/100 WBC (Bld) 0 % Low 1-4 [facility] Comment on above: Performed By: #### C DP, BMP, CRP, PRCAL #### [facility] [address] [place] [address] Pathology Tech: Sabas Lamb MD Erythrocyte distribution width (RBC) [Ratio] 11.9 % Normal 11.8-14.4 [facility] Comment on above: Performed By: #### C DP, BMP, CRP, PRCAL #### [address] [address] Pathology Tech: Sabas Lamb MD Hematocrit (Bld) [Volume fraction] 39.6 % Normal 36.3-47.1 [facility] Comment on above: Performed By: #### C DP, BMP, CRP, PRCAL #### [place] [address] Pathology Tech: Sabas Lamb MD Hemoglobin (Bld) [Mass/Vol] 12.3 g/dL Normal 11.9-15.1 [facility] Comment on above: Performed By: #### C DP, BMP, CRP, PRCAL #### [place] [address] Pathology Tech: Sabas Lamb MD Immature granulocytes (Bld) [#/Vol] 0 % Normal 0 [facility] Comment on above: Performed By: #### C DP, BMP, CRP, PRCAL #### [place] [address] Pathology Tech: Sabas Lamb MD Lymphocytes (Bld) [#/Vol] 0.82 10*3/uL Low 1.10-3.70 [facility] Comment on above: Performed By: #### C DP, BMP, CRP, PRCAL #### [address] [address] Pathology Tech: Sabas Lamb MD Lymphocytes/100 WBC (Bld) 6 % Low 24-43 [facility] Comment on above: Performed By: #### C DP, BMP, CRP, PRCAL #### [address] [address] Pathology Tech: Sabas Lamb MD MCH (RBC) [Entitic mass] 31.1 pg Normal 25.2-33.5 [facility] Comment on above: Performed By: #### C DP, BMP, CRP, PRCAL #### [address] [address] Pathology Tech: Sabas Lamb MD MCHC (RBC) [Mass/Vol] 31.1 g/dL Normal 28.4-34.8 [facility] Comment on above: Performed By: #### C DP, BMP, CRP, PRCAL #### [place] [address] Pathology Tech: Sabas Lamb MD MCV (RBC) [Entitic vol] 100.3 fL Normal 82.6-102.9 [facility] Comment on above: Performed By: #### C DP, BMP, CRP, PRCAL #### [place] [address] Pathology Tech: Sabas Lamb MD Monocytes (Bld) [#/Vol] 0.80 10*3/uL Normal 0.10-1.20 [facility] Comment on above: Performed By: #### C DP, BMP, CRP, PRCAL #### [place] [address] Pathology Tech: Sabas Lamb MD Monocytes/100 WBC (Bld) 6 % Normal 3-12 [facility] Comment on above: Performed By: #### C DP, BMP, CRP, PRCAL #### [place] [address] Pathology Tech: Sabas Lamb MD Neutrophil (Seg) 88 % High 36-65 [facility] Comment on above: Performed By: #### C DP, BMP, CRP, PRCAL #### [address] [address] Pathology Tech: Sabas Lamb MD NRBC Automated 0.0 per 100 WBC Normal 0.0 [facility] Comment on above: Performed By: #### C DP, BMP, CRP, PRCAL #### [address] [address] Pathology Tech: Sabas Lamb MD Platelet mean volume (Bld) [Entitic vol] 11.5 fL Normal 8.1-13.5 [facility] Comment on above: Performed By: #### C DP, BMP, CRP, PRCAL #### [address] [address] Pathology Tech: Sabas Lamb MD Platelets (Bld) [#/Vol] 261 10*3/uL Normal 138-453 [facility] Comment on above: Performed By: #### C DP, BMP, CRP, PRCAL #### [address] [address] Pathology Tech: Sabas Lamb MD RBC (Bld) [#/Vol] 3.95 10*6/uL Normal 3.95-5.11 [facility] Comment on above: Performed By: #### C DP, BMP, CRP, PRCAL #### [address] [address] Pathology Tech: Sabas Lamb MD WBC (Bld) [#/Vol] 13.8 10*3/uL High 3.5-11.3 [facility] Comment on above: Performed By: #### C DP, BMP, CRP, PRCAL #### [facility] [address] [place] [address] Pathology Tech: Sabas Lamb MD Auto Diff Performed NOT REPORTED Normal [facility] Comment on above: Performed By: #### C DP, BMP, CRP, PRCAL #### [facility] [address] [place] [address] Pathology Tech: Sabas Lamb MD Platelets (Bld) [#/Vol] NOT REPORTED Normal [facility] Comment on above: Performed By: #### C DP, BMP, CRP, PRCAL #### [facility] [address] [place] [address] Pathology Tech: Sabas Lamb MD RBC morphology finding Nom (Bld) NOT REPORTED Normal [facility] Comment on above: Performed By: #### C DP, BMP, CRP, PRCAL #### [facility] [address] [place] [address] Pathology Tech: Sabas Lamb MD WBC Morphology NOT REPORTED Normal [facility] Comment on above: Performed By: #### C DP, BMP, CRP, PRCAL #### [address] [phone] Pathology Tech: Sabas Lamb MD PTon 10-24-2018 INR Coag (PPP) [Relative time] 1.0 {INR} Normal [facility] Comment on above: Result Comment: Therapeutic Range: Moderate Anticoagulant Intensity: INR = 2.0-3.0 High Anticoagulant Intensity: INR = 2.5-3.5 Performed By: #### C DP, BMP, CRP, PRCAL #### [address] [phone] Pathology Tech: Sabas Lamb MD PT Coag (PPP) [Time] 10.8 s Normal 9.0-12.0 [facility] Comment on above: Performed By: #### C DP, BMP, CRP, PRCAL #### [facility] [address] [place] [address] [phone] Pathology Tech: Sabas Lamb MD Basic Metabolic Profon 10-23 (cont.) Normal [facility] Comment on above: Result Comment: Aver age GFR for 50-59 years old: 93 mL/min/1.73sq m Chronic Kidney Disease: <60 mL/min/1.73sq m Kidney failure: <15 mL/min/1.73sq m eGFR calculated using average adult body mass. Additional eGFR calculator available at: http://www.[email or web address].[employer]/multiple_crcl_2012.htm Performed By: #### C DP, BMP, CRP, PRCAL #### [facility] [address] [place] [address] Pathology Tech: Sabas Lamb MD Anion gap [Moles/Vol] 14 mmol/L Normal 9-17 [facility] Comment on above: Performed By: #### C DP, BMP, CRP, PRCAL #### [facility] [address] [place] [address] Pathology Tech: Sabas Lamb MD Calcium [Mass/Vol] 8.2 mg/dL Low 8.6-10.4 [facility] Comment on above: Performed By: #### C DP, BMP, CRP, PRCAL #### [facility] [address] [place] [address] Pathology Tech: Sabas Lamb MD Chloride [Moles/Vol] 107 mmol/L Normal 98-107 [facility] Comment on above: Performed By: #### C DP, BMP, CRP, PRCAL #### [facility] [address] [place] [address] Pathology Tech: Sabas Lamb MD CO2 [Moles/Vol] 20 mmol/L Normal 20-31 [facility] Comment on above: Performed By: #### C DP, BMP, CRP, PRCAL #### [facility] [address] [place] [address] Pathology Tech: Sabas Lamb MD Creatinine [Mass/Vol] 0.42 mg/dL Low 0.50-0.90 [facility] Comment on above: Performed By: #### C DP, BMP, CRP, PRCAL #### [facility] [address] [place] [address] Pathology Tech: Sabas Lamb MD GFR, Amer >60 Normal >60 [facility] Comment on above: Performed By: #### C DP, BMP, CRP, PRCAL #### [address] [address] Pathology Tech: Sabas Lamb MD GFR,non Amer >60 Normal >60 [facility] Comment on above: Performed By: #### C DP, BMP, CRP, PRCAL #### [address] [address] Pathology Tech: Sabas Lamb MD Glucose [Mass/Vol] 87 mg/dL Normal 70-99 [facility] Comment on above: Performed By: #### C DP, BMP, CRP, PRCAL #### [address] [address] Pathology Tech: Sabas Lamb MD Potassium [Moles/Vol] 3.9 mmol/L Normal 3.7-5.3 [facility] Comment on above: Performed By: #### C DP, BMP, CRP, PRCAL #### [address] [address] Pathology Tech: Sabas Lamb MD Sodium [Moles/Vol] 141 mmol/L Normal 135-144 [facility] Comment on above: Performed By: #### C DP, BMP, CRP, PRCAL #### [address] [address] Pathology Tech: Sabas Lamb MD Urea nitrogen [Mass/Vol] 14 mg/dL Normal -20 [facility] Comment on above: Performed By: #### C DP, BMP, CRP, PRCAL #### [facility] [address] [place] [address] Pathology Tech: Sabas Lamb MD BUN/CRE Ratio NOT REPORTED Normal -20 [facility] Comment on above: Performed By: #### C DP, BMP, CRP, PRCAL #### [facility] [address] [place] [address] Pathology Tech: Sabas Lamb MD Staging: NOT REPORTED Normal [facility] Comment on above: Performed By: #### C DP, BMP, CRP, PRCAL #### [address] [address] Pathology Tech: Sabas Lamb MD C-Reactive Proteinon 019 CRP [Mass/Vol] 40.6 mg/L High 0.0-5.0 [facility] Comment on above: Performed By: #### C DP, BMP, CRP, PRCAL #### [facility] [address] [place] [address] Pathology Tech: Sabas Lamb MD CBC with Diffon 10-23-2018 Abs. Basophil 0.03 k/uL Normal 0.00-0.20 [facility] Comment on above: Performed By: #### C DP, BMP, CRP, PRCAL #### [address] [address] Pathology Tech: Sabas Lamb MD Abs.Imm.Granulocy te 0.05 k/uL Normal 0.00-0.30 [facility] Comment on above: Performed By: #### C DP, BMP, CRP, PRCAL #### [facility] [address] [place] [address] Pathology Tech: Sabas Lamb MD Abs.Neutrophil (Seg) 13.74 k/uL High 1.50-8.10 [facility] Comment on above: Performed By: #### C DP, BMP, CRP, PRCAL #### [facility] [address] [place] [address] Pathology Tech: Sabas Lamb MD Basophils/100 WBC (Bld) 0 % Normal 0-2 [facility] Comment on above: Performed By: #### C DP, BMP, CRP, PRCAL #### [facility] [address] [place] [address] Pathology Tech: Sabas Lamb MD Eosinophils (Bld) [#/Vol] 10*3/uL Normal 0.00-0.44 [facility] Comment on above: Performed By: #### C DP, BMP, CRP, PRCAL #### [address] [address] Pathology Tech: Sabas Lamb MD Eosinophils/100 WBC (Bld) 0 % Low 1-4 [facility] Comment on above: Performed By: #### C DP, BMP, CRP, PRCAL #### [address] [address] Pathology Tech: Sabas Lamb MD Erythrocyte distribution width (RBC) [Ratio] 12.1 % Normal 11.8-14.4 [facility] Comment on above: Performed By: #### C DP, BMP, CRP, PRCAL #### [address] [address] Pathology Tech: Sabas Lamb MD Hematocrit (Bld) [Volume fraction] 35.7 % Low 36.3-47.1 [facility] Comment on above: Performed By: #### C DP, BMP, CRP, PRCAL #### [address] [address] Pathology Tech: Sabas Lamb MD Hemoglobin (Bld) [Mass/Vol] 11.5 g/dL Low 11.9-15.1 [facility] Comment on above: Performed By: #### C DP, BMP, CRP, PRCAL #### [address] [address] Pathology Tech: Sabas Lamb MD Immature granulocytes (Bld) [#/Vol] 0 % Normal 0 [facility] Comment on above: Performed By: #### C DP, BMP, CRP, PRCAL #### [address] [address] Pathology Tech: Sabas Lamb MD Lymphocytes (Bld) [#/Vol] 1.21 10*3/uL Normal 1.10-3.70 [facility] Comment on above: Performed By: #### C DP, BMP, CRP, PRCAL #### [address] [address] Pathology Tech: Sabas Lamb MD Lymphocytes/100 WBC (Bld) 8 % Low 24-43 [facility] Comment on above: Performed By: #### C DP, BMP, CRP, PRCAL #### [address] [address] Pathology Tech: Sabas Lamb MD MCH (RBC) [Entitic mass] 31.8 pg Normal 25.2-33.5 [facility] Comment on above: Performed By: #### C DP, BMP, CRP, PRCAL #### [address] [address] Pathology Tech: Sabas Lamb MD MCHC (RBC) [Mass/Vol] 32.2 g/dL Normal 28.4-34.8 [facility] Comment on above: Performed By: #### C DP, BMP, CRP, PRCAL #### [address] [address] Pathology Tech: Sabas Lamb MD MCV (RBC) [Entitic vol] 98.6 fL Normal 82.6-102.9 [facility] Comment on above: Performed By: #### C DP, BMP, CRP, PRCAL #### [address] [address] Pathology Tech: Sabas Lamb MD Monocytes (Bld) [#/Vol] 1.01 10*3/uL Normal 0.10-1.20 [facility] Comment on above: Performed By: #### C DP, BMP, CRP, PRCAL #### [address] [address] Pathology Tech: Sabas Lamb MD Monocytes/100 WBC (Bld) 6 % Normal 3-12 [facility] Comment on above: Performed By: #### C DP, BMP, CRP, PRCAL #### [address] [address] Pathology Tech: Sabas Lamb MD Neutrophil (Seg) 86 % High 36-65 [facility] Comment on above: Performed By: #### C DP, BMP, CRP, PRCAL #### [address] [address] Pathology Tech: Sabas Lamb MD NRBC Automated 0.0 per 100 WBC Normal 0.0 [facility] Comment on above: Performed By: #### C DP, BMP, CRP, PRCAL #### [address] [address] Pathology Tech: Sabas Lamb MD Platelet mean volume (Bld) [Entitic vol] 11.7 fL Normal 8.1-13.5 [facility] Comment on above: Performed By: #### C DP, BMP, CRP, PRCAL #### [address] [address] Pathology Tech: Sabas Lamb MD Platelets (Bld) [#/Vol] 268 10*3/uL Normal 138-453 [facility] Comment on above: Performed By: #### C DP, BMP, CRP, PRCAL #### [facility] [address] [place] [address] Pathology Tech: Sabas Lamb MD RBC (Bld) [#/Vol] 3.62 10*6/uL Low 3.95-5.11 [facility] Comment on above: Performed By: #### C DP, BMP, CRP, PRCAL #### [address] [address] Pathology Tech: Sabas Lamb MD WBC (Bld) [#/Vol] 16.1 10*3/uL High 3.5-11.3 [facility] Comment on above: Performed By: #### C DP, BMP, CRP, PRCAL #### [address] [address] Pathology Tech: Sabas Lamb MD Auto Diff Performed NOT REPORTED Normal [facility] Comment on above: Performed By: #### C DP, BMP, CRP, PRCAL #### [address] [address] Pathology Tech: Sabas Lamb MD Platelets (Bld) [#/Vol] NOT REPORTED Normal [facility] Comment on above: Performed By: #### C DP, BMP, CRP, PRCAL #### [address] [address] Pathology Tech: Sabas Lamb MD RBC morphology finding Nom (Bld) NOT REPORTED Normal [facility] Comment on above: Performed By: #### C DP, BMP, CRP, PRCAL #### [address] [address] Pathology Tech: Sabas Lamb MD WBC Morphology NOT REPORTED Normal [facility] Comment on above: Performed By: #### C DP, BMP, CRP, PRCAL #### [address] [address] Pathology Tech: Sabas Lamb MD CT HEAD WO CONTRASTon [...] MD 10/23/18 Final result Normal [facility] MRI BRAIN W CONTRASTon 10-23 MRI [...] MD 10/23/18 Final result Normal [facility] OPERATIVE REPORTon 10-23-201 9 OPERATIVE REPORT [address] [address] OPERATIVE REPORT PATIENT NAME: DACIA FINLEY : 1960 MED REC NO: [id number] ROOM: [facility] ACCOUNT NO: [id number] ADMIT DATE: 10/22/2018 PROVIDER: Meera Rojas DATE [...] with lightheadedness and coughing. She presented at [facility] ER earlier today due to these complaints and was found to have a sizeable right-sided subdural hematoma. She was transferred to [facility] for further management. She was reported to be neurologically intact when at the outside hospital, but upon arrival to the ER at [facility], she was noted to have some mild [...] evidence of complication. MEERA ROJAS DL/[id number]_I Doc#: [id number] CC: Normal [facility] Procalcitoninon 10-23-2018 Procalcitonin 0.06 ng/mL Normal <0.09 [facility] Comment on above: Result Comment: Suspected [...] entered into the Change in Procalcitonin Calculator (www.lcowux-ibx-tzdextwpwc.[employer]) to determine the patient's Mortality Risk Prognosis Performed By: #### C DP, BMP, CRP, PRCAL #### [place] [address] Pathology Tech: Sabas Lamb MD XR CHEST PORTABLEon 10-24-19 [...] MD 10/23/18 Final result Normal [facility] Platelets,Transfuseon 2018 Platelets,Transfu se Unit Number [id number] Blood Component Type Leukocyte Reduced Irradiated Plateletpheresis Unit Division 00 Status of Unit TRANSFUSED Transfusion Status OK TO TRANSFUSE Normal [facility] Comment on above: Performed By: #### T PLT #### [facility] [address] [place] [address] Pathology Tech: Sabas Lamb MD Type + Screenon 10-22-2018 Type + Screen Sample Expiration Arm Band Number [id number] ABO/Rh(D) A POSITIVE Antibody Screen NEGATIVE Normal [facility] Comment on above: Performed By: #### T YS #### [facility] [address] [place] [address] Pathology Tech: Sabas Lamb MD Discharge Summaryon 06-07-20 Discharge Summary MR[id number] Admitted: 06/05/2017 Discharged: 06/06/2017 Date of : 1960 Physician: Rachele Post DO DISCHARGE SUMMARYDISCHARGE SERVICE: CCU.PRIMARY DIAGNOSIS: Acute coronary syndrome.SECONDARY DIAGNOSIS: Migraine.PROCEDURE: Percutaneous coronary intervention with stent placement.HOSPITAL COURSE: This is a 56-year-old female with past medical history ofmigraines, who was transferred from [facility]. She presented therewith chest discomfort and was found to have EKG abnormalities. In the lastmonth, the patient reported 3 episodes of chest pain with the latest being. The chest pain was also associated with sweating, shortnessof breath, and nausea. She was transferred from [facility] andadmitted to the CCU. The patient's troponins were remained negative, butwith her chest pain and EKG changes, she was taken to the microbiology lab technician. In thecath lab, this showed 90% stenosis [...] Dict: 06/06/2017/02:36 P/ROSI Keyate Trans: 06/07/2017 09:17 A/Kong_JN:[id number]: Ryan Arevalo M.D. [address] [facility] [address] Kel Bueno M.D. [address] [place] [address] [facility] BASIC METABOLIC PANELon 12-3 Calcium 9.3 mg/dL Normal 8.6-10.[address] [facility] Comment on above: Order Comment: Unkno wn Performed By: #### 0 0071, [id number] ####[facility] [place] [address], [facility] Chloride 105 mmol/L Normal 98-[address] [facility] Comment on above: Order Comment: Unkno wn Performed By: #### 0 0071, [address] ####[facility] [facility] [place] [address], [facility] CO2 24 mmol/L Normal 21-[address] [facility] Comment on above: Order Comment: Unkno wn Performed By: #### 0 0071, 41980 ####[facility] [facility] [place] [address], [facility] Creatinine 0.72 mg/dL Normal 0.60-1.[address] [facility] Comment on above: Order Comment: Unkno wn Performed By: #### 0 0071, 21868 ####[facility] [facility] [place] [address], [facility] eGFR (black) mL/min/{1.73_m2} Normal >[address] [facility] Comment on above: Order Comment: Unkno wn Performed By: #### 0 0071, 37753 ####[facility] [facility].[address] eGFR (non-black) mL/min/{1.73_m2} Normal >[address] [facility] Comment on above: Order Comment: Unkno wn Performed By: #### 0 0071, [address] ####[facility] [facility] [place] [address], [facility] Glucose mass conc 89 mg/dL Normal 70-[address] [facility] Comment on above: Order Comment: Unkno wn Performed By: #### 0 0071, 26037 ####[facility] [facility] [place] [address], [facility] Potassium molar conc 3.8 mmol/L Normal 3.5-5.[address] [facility] Comment on above: Order Comment: Unkno wn Performed By: #### 0 0071, 31959 ####[facility] [facility] [place] [address], [facility] Sodium 139 mmol/L Normal 136-[address] [facility] Comment on above: Order Comment: Unkno wn Performed By: #### 0 1, 49057 ####[facility] [facility], [place] [id number] [place] [address] Urea nitrogen 14 mg/dL Normal 7-[address] [facility] Comment on above: Order Comment: Unkno wn Performed By: #### 0 007, 14339 ####[facility] [facility], [place] [id number] [place] [address] CBC COMPLETE BLOOD COUNTon Erythrocyte distribution width Auto Ratio (RBC) 13.3 % Normal 11.5-16.[address] [facility] Comment on above: Order Comment: Unkno wn Performed By: #### 5 0608 ####[facility] [facility].[address] Erythrocytes (RBC) 4.43 mill/mm3 Normal 3.50-5.[address] [facility] Comment on above: Order Comment: Unkno wn Performed By: #### 5 0608 ####[facility] [facility], [place] [id number] [place] [address] Hematocrit (HCT) 40.9 % Normal 36.0-48.[address] [facility] Comment on above: Order Comment: Unkno wn Performed By: #### 5 0608 ####[facility] [facility], [place] [id number] [place] [address] Hemoglobin mass conc (Bld) 13.6 g/dL Normal 12.0-15.[address] [facility] Comment on above: Order Comment: Unkno wn Performed By: #### 5 0608 ####[facility] [facility] [place] [address], [facility] MCH 30.7 pg Normal 24.0-32.[address] [facility] Comment on above: Order Comment: Unkno wn Performed By: #### 5 0608 ####[facility] [facility] [place] [address], [facility] MCHC mass conc (RBC) 33.2 g/dL Normal 32.0-36.[address] [facility] Comment on above: Order Comment: Unkno wn Performed By: #### 5 0608 ####[facility] MCV 92.2 fL Normal 80.0-100.[address] [facility] Comment on above: Order Comment: Unkno wn Performed By: #### 5 0608 ####[facility] PLAT CNT 194 Thou/mm3 Normal 100-[address] [facility] Comment on above: Order Comment: Unkno wn Performed By: #### 5 0608 ####[place] [id number] [address] WBC (Leukocytes) 10.8 Thou/mm3 High 4.0-10.[address] [facility] Comment on above: Order Comment: Unkno wn Performed By: #### 5 0608 ####[facility] Cardiovascular Lab Reporton 06-06-2017 Cardiovascular Lab Report [facility] [place] MR #: [id number] Physician: Elías Zhao M.D.Medicine Service Date: 06/05/2017Division of Birthdate: 1960Cardiology Room #: 3CD [id number] Cardi[place] [phone] Fax Cardiovascular Laboratory ReportINDICATION: Dacia Finley is [...] signed informed consent. She was brought to microbiology lab technician in a [place]. The right groin area was prepped and draped in usual fashion.Using micropuncture technique, the right common femoral artery wasaccessed. The inner cannula was advanced and limited right femoralangiography was performed followed by upsizing to a 5-Mauritanian x 11 cmsheath. Bilateral selective carotid angiography was then performed using5-Mauritanian JL4 and JR4 diagnostic catheters. Catheters were removed.Heparin was administered intravenously and therapeutic ACT confirmed duringthe procedure. A 5-Mauritanian JR4 guiding catheter was advanced and used toengage the right coronary ostium. A [employer] [facility] wire was advanced into thedistal RCA. Balloon [...] stentfollowed by post dilatation using NC [employer] 3.0 x 20 mm noncompliantballoon inflated at [...] 06/05/2017/03:03 P/Elías Cannon M.D.Date Trans: 06/06/2017 07:01 A/Kong_JN:[id number]: Ryan Arevalo M.D. [facility] [address] [place] [facility] [address] Kel Bueno M.D. [facility]5 [facility] [address] [facility] MAGNESIUM BLOODon 06-06-2017 Magnesium 1.9 mg/dL Normal 1.9-2.[address] [facility] Comment on above: Performed By: #### 5 0608 ####[facility].[address] APTTon 06-05-2017 aPTT 32.6 s Normal 25.0-35.[address] [facility] Comment on above: Order Comment: [...] THIS PURPOSE. Performed By: #### 5 6101, [id number] ####[facility] [facility] [place] [address], [facility] BASIC METABOLIC PANELon - Calcium 8.9 mg/dL Normal 8.6-10.[address] [facility] Comment on above: Order Comment: No: D o not add to previous draw Performed By: #### 0 0071 ####[facility] [facility] [place] [address], [facility] Chloride 106 mmol/L Normal 98-[address] [facility] Comment on above: Order Comment: No: D o not add to previous draw Performed By: #### 0 0071 ####[facility] [facility] [place] [address], [facility] CO2 28 mmol/L Normal 21-[address] [facility] Comment on above: Order Comment: No: D o not add to previous draw Performed By: #### 0 0071 ####[facility] [place] [address], [facility] Creatinine 0.76 mg/dL Normal 0.60-1.[address] [facility] Comment on above: Order Comment: No: D o not add to previous draw Performed By: #### 0 0071 ####[facility] [place] [address], [facility] eGFR (black) mL/min/{1.73_m2} Normal >[address] [facility] Comment on above: Order Comment: No: D o not add to previous draw Performed By: #### 0 0071 ####[facility] [place] [address], [facility] eGFR (non-black) mL/min/{1.73_m2} Normal >[address] [facility] Comment on above: Order Comment: No: D o not add to previous draw Performed By: #### 0 0071 ####[facility] [place] [address], [facility] Glucose mass conc 88 mg/dL Normal 70-[address] [facility] Comment on above: Order Comment: No: D o not add to previous draw Performed By: #### 0 0071 ####[facility] [place] [address], [facility] Potassium molar conc 3.8 mmol/L Normal 3.5-5.[address] [facility] Comment on above: Order Comment: No: D o not add to previous draw Performed By: #### 0 0071 ####[facility] [place] [address], [facility] Sodium 138 mmol/L Normal 136-[address] [facility] Comment on above: Order Comment: No: D o not add to previous draw Performed By: #### 0 0071 ####[facility] [id number], [facility] Urea nitrogen 10 mg/dL Normal 7-[address] [facility] Comment on above: Order Comment: No: D o not add to previous draw Performed By: #### 0 0071 ####[facility] CBC COMPLETE BLOOD COUNTon Erythrocyte distribution width Auto Ratio (RBC) 13.9 % Normal 11.5-16.[address] [facility] Comment on above: Order Comment: No: D o not add to previous draw Performed By: #### 5 0608 ####[facility] Erythrocytes (RBC) 4.66 mill/mm3 Normal 3.50-5.[address] [facility] Comment on above: Order Comment: No: D o not add to previous draw Performed By: #### 5 0608 ####[facility] [facility].[address] Hematocrit (HCT) 42.9 % Normal 36.0-48.[address] [facility] Comment on above: Order Comment: No: D o not add to previous draw Performed By: #### 5 0608 ####[place] [address] [facility].[address] Hemoglobin mass conc (Bld) 14.2 g/dL Normal 12.0-15.[address] [facility] Comment on above: Order Comment: No: D o not add to previous draw Performed By: #### 5 0608 ####[facility] MCH 30.5 pg Normal 24.0-32.[address] [facility] Comment on above: Order Comment: No: D o not add to previous draw Performed By: #### 5 0608 ####[facility] MCHC mass conc (RBC) 33.1 g/dL Normal 32.0-36.[address] [facility] Comment on above: Order Comment: No: D o not add to previous draw Performed By: #### 5 0608 ####[facility] [place] [address], [facility] MCV 92.0 fL Normal 80.0-100.[address] [facility] Comment on above: Order Comment: No: D o not add to previous draw Performed By: #### 5 0608 ####[facility] [place] [address], [facility] PLAT CNT 178 Thou/mm3 Normal 100-[address] [facility] Comment on above: Order Comment: No: D o not add to previous draw Performed By: #### 5 0608 ####[facility] WBC (Leukocytes) 6.6 Thou/mm3 Normal 4.0-10.[address] [facility] Comment on above: Order Comment: No: D o not add to previous draw Performed By: #### 5 0608 ####[facility] Erythrocyte distribution width Auto Ratio (RBC) 13.1 % Normal 11.5-16.[address] [facility] Comment on above: Order Comment: No: D o not add to previous draw Performed By: #### 5 0608 ####[facility] Erythrocytes (RBC) 4.49 mill/mm3 Normal 3.50-5.[address] [facility] Comment on above: Order Comment: No: D o not add to previous draw Performed By: #### 5 0608 ####[facility] Hematocrit (HCT) 41.7 % Normal 36.0-48.[address] [facility] Comment on above: Order Comment: No: D o not add to previous draw Performed By: #### 5 0608 ####[facility] [place] [address], [facility] Hemoglobin mass conc (Bld) 13.9 g/dL Normal 12.0-15.[address] [facility] Comment on above: Order Comment: No: D o not add to previous draw Performed By: #### 5 0608 ####[facility] [place] [address], [facility] MCH 31.1 pg Normal 24.0-32.[address] [facility] Comment on above: Order Comment: No: D o not add to previous draw Performed By: #### 5 0608 ####[facility] MCHC mass conc (RBC) 33.5 g/dL Normal 32.0-36.[address] [facility] Comment on above: Order Comment: No: D o not add to previous draw Performed By: #### 5 0608 ####[facility] MCV 92.8 fL Normal 80.0-100.[address] [facility] Comment on above: Order Comment: No: D o not add to previous draw Performed By: #### 5 0608 ####[place] [address] [facility] [place] [address], [facility] PLAT CNT 172 Thou/mm3 Normal 100-[address] [facility] Comment on above: Order Comment: No: D o not add to previous draw Performed By: #### 5 0608 ####[facility] [place] [address], [facility] WBC (Leukocytes) 6.7 Thou/mm3 Normal 4.0-10.[address] [facility] Comment on above: Order Comment: No: D o not add to previous draw Performed By: #### 5 0608 ####[facility] [place] [address], [place] History and Physicalon 06-05 History and Physical [id number] Admitted: 06/05/2017 Date of : 1960 Attending Physician: Wayne Donis MD Room #: [id number] Discharge Date: HISTORY AND PHYSICALCHIEF COMPLAINT: Chest pain.HISTORY OF PRESENT ILLNESS: The patient is a 56-year-old female withhistory of migraines, who was transferred from [facility] after shepresented there with chest [...] chest. Because of that she went [facility] yesterday and he did EKG, which showed some T waveinversions in the lateral leads, so [facility]. [facility] there was negative and EKG again asmentioned, was abnormal with T wave inversion in the lateral leads. [facility]was [facility] for further [facility] andmanagement. When I [...] or drug use.FAMILY HISTORY: Father of an [place] at age 79 and mother of [place] whenshe was having an open heart surgery at age 57.REVIEW OF SYSTEMS: A 10-point review of systems was done, and pertinentpositives and negatives mentioned in the HPI.MEDICATIONS: The patient only takes Imitrex for migraines as needed.PHYSICAL EXAMINATION: VITAL SIGNS: Temperature 98, pulse 75, [id number], blood pressure 129/80, and saturating 100% on [...] 06/05/2017/03:33 A/Wayne Donis MDDate Trans: 06/05/2017 04:23 A/Kong_JN:[id number] Normal [facility] PROTHROMBIN TIMEon 7 INR Coag RelTime (PPP) 0.98 {INR} Normal 0.91-1.[address] [facility] Comment on above: Order Comment: [...] OF ACTION, CLINICALEFFECTIVENESS, AND OPTIMAL THERAPEUTIC RANGE. [id number]. Performed By: #### 5 6101, [id number] ####[facility] Prothrombin time (PT) Coag time (PPP) 13.0 s Normal 12.3-14.[address] [facility] Comment on above: Order Comment: No: D o not add to previous draw Result Comment: ALL RESULTS MUST BE INTERPRETED WITH RESPECT TO BLOOD DRAWING ARTIFACTOR DILUTION ERROR OF ANTICOAGULANT AT THE TIME OF SAMPLING. Performed By: #### 5 6101, [id number] ####[facility] [place] [address], [facility] TROPONIN-Ion 06-05-2017 Troponin I.cardiac mass conc 0.03 ng/mL Normal 0.00-0.04 [facility] Comment on above: Order Comment: No: D o not add to previous draw Result Comment: REFE RENCE RANGES: 0.00 - 0.04 ng/ml NORMAL 0.05 - 0.50 ng/ml INDETERMINATE > 0.50 ng/ml CONSISTENT WITH AN M.I. Performed By: #### 3 5200 ####[facility] [place] [address], [facility] Troponin I.cardiac mass conc 0.01 ng/mL Normal 0.00-0.04 [facility] Comment on above: Order Comment: No: D o not add to previous draw Result Comment: REFE RENCE RANGES: 0.00 - 0.04 ng/ml NORMAL 0.05 - 0.50 ng/ml INDETERMINATE > 0.50 ng/ml CONSISTENT WITH AN M.I. Performed By: #### 3 5200 ####[facility] [place] [address], [facility] Troponin I.cardiac mass conc 0.02 ng/mL Normal 0.00-0.[address] [facility] Comment on above: Order Comment: No: D o not add to previous draw Result Comment: REFE RENCE RANGES: 0.00 - 0.04 ng/ml NORMAL 0.05 - 0.50 ng/ml INDETERMINATE > 0.50 ng/ml CONSISTENT WITH AN M.I. Performed By: #### 3 5200 ####[facility] [place] [address], [facility] Vital Signs Date Time Vital Sign Value Performing Clinician Samir olivas 01-19-2023 11:15-0400 Diastolic blood pressure 92 mm[Hg] Elvira Scherer DO Work Phone: [facility] 01-19-2023 11:15-0400 Heart rate 75 /min Elvira Scherer DO Work Phone: [facility] [employer] 01-19-2023 11:15-0400 Respiratory rate 16 /min Elvira Scherer DO Work Phone: [facility] [employer] 01-19-2023 11:15-0400 SaO2% (BldA) [Mass fraction] 97 % Elvira Scherer DO Work Phone: [facility] [employer] 01-19-2023 11:15-0400 Systolic blood pressure 112 mm[Hg] Elvira Scherer DO Work Phone: [facility] [employer] 01-19-2023 10:48-0400 Body temperature 96.91 [degF] Elvira Scherer DO Work Phone: [facility] [employer] 01-19-2023 09:50-0400 Body height 154.9 cm Elvira Scherer DO Work Phone: [facility] [employer] 01-19-2023 09:50-0400 Body mass index (BMI) [Ratio] 19.84 kg/m2 Elvira Scherer DO Work Phone: [facility] [employer] 01-19-2023 09:50-0400 Body weight 47.63 kg Elvira Scherer DO Work Phone: [facility] [employer] 12-01-2022 10:15-0400 Diastolic blood pressure 67 mm[Hg] Elvira Scherer DO Work Phone: [facility] [employer] 12-01-2022 10:15-0400 Heart rate 66 /min Elvira Scherer DO Work Phone: [facility] [employer] 12-01-2022 10:15-0400 SaO2% (BldA) [Mass fraction] 97 % Elvira Scherer DO Work Phone: [facility] [employer] 12-01-2022 10:15-0400 Systolic blood pressure 112 mm[Hg] Elvira Scherer DO Work Phone: [facility] [employer] 12-01-2022 09:41-0400 Body temperature 97 [degF] Elvira Scherer DO Work Phone: [facility] 12-01-2022 09:41-0400 Respiratory rate 18 /min Elvirapietro Scherer Work Phone: [facility] 12-01-2022 08:20-0400 Body mass index (BMI) [Ratio] 20.18 kg/m2 Elvirapietro Scherer DO Work Phone: [facility] 12-01-2022 08:20-0400 Body weight 48.44 kg Elvirapietro Scherer DO Work Phone: [facility] 11-17-2022 11:32-0400 Body height 154.9 cm Elvira Paul Work Phone: [facility] Encounters Encounter Date Encounter Type Care Provider Facility Start: 01-19-2023 End: 01-19-2023 ambulatory RY[facility] Start: 01-19-2023 End: 01-19-2023 Subsequent hospital visit by physician Elvira Scherer DO Work Phone: [facility] Start: 12-01-2022 End: 12-01-2022 ambulatory RY[facility] Start: 12-01-2022 End: 12-01-2022 Subsequent hospital visit by physician Elvira Scherer DO Work Phone: [facility] Start: 09-09-2022 End: 09-10-[address] RYAN AREVALO . Facility:[facility] Start: 08-29-2022 Encounter for genera l adult medical examination without abnormal findings DR RYAN AREVALO . [facility] Start: 08-21-2022 End: 08-21-[address] RYAN AREVALO . Facility:[facility] Start: 08-21-2022 End: 08-21-2022 Encounter for general adult medical examination without abnormal findings DR RYAN AREVALO . Facility:[facility] Start: 08-15-2022 End: 08-16-[address] RYAN AREVALO . 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 RENNY D BOB Start: [...] cataract of right eye 01/19/2023 10:26 AM [facility] Start: 01-06-2023 Influenza vaccination B [facility] Start: 12-01-2022 End: 12-01-2022 Xcapsl ctrc rmvl insj io lens prosth w/o ecp EYE CATARACT EMULSIFICATION IOL IMPLANT Age-related nuclear cataract of left eye 12/01/2022 9:07 AM [facility] Start: 10-26-2019 Lipid panel Lipids [facility] Start: 08-29-2009 Screening for malign ant neoplasm of breast Breast cancer screen [facility] Start: 08-29-2009 Screening for malign ant neoplasm of lung Low dose CT lung screening &/or counseling [facility] Start: 08-29-2009 Shingles vaccine (1 of 2) Shingles vaccine (1 of 2) [facility] Start: 08-29-2004 Screening for malign ant neoplasm of colon [facility] Start: 08-29-1978 DTaP/Tdap/Td vaccine (1 - Tdap) DTaP/Tdap/Td vaccine (1 - Tdap) [facility] Start: 08-29-1977 Hepatitis C screening Hepatitis C sc reen [facility] Start: 08-29-1974 HIV screening HIV screen [facility] Start: 1971 Depression Screen Depression Screen [facility] Start: 08-29-1965 Pneumococcal 0-64 ye ars Vaccine (1 - PCV) Pneumococcal 0-64 years Vaccine (1 - PCV) [facility] Start: 03-01-1960 COVID-19 Vaccine (#1) COVID-19 Vacci ne (#1) [facility] Oxygen therapy [Mini mum Data Set] Initiate Oxygen Therapy Protocol Respiratory Care Routine Daily until discontinued starting 12/01/2022 [facility] Comment on above: Daily until disconti nued starting 12/01/2022 Oxygen therapy [Mini mum Data Set] Initiate Oxygen Therapy Protocol Respiratory Care Routine Daily until discontinued starting 12/01/2022 [facility] Comment on above: Daily until disconti nued starting 12/01/2022 Oxygen therapy [Mini mum Data Set] Initiate Oxygen Therapy Protocol Respiratory Care Routine Daily until discontinued starting 01/19/2023 [facility] [employer] Comment on above: Daily until disconti nued starting 01/19/2023 Oxygen therapy [[facility] Data Set] Initiate Oxygen Therapy Protocol Respiratory Care Routine Daily until discontinued starting 01/19/2023 [facility] [employer] Comment on above: Daily until disconti nued starting 01/19/2023 Payers Date Payer Category Payer Unknown [id number] [id number] [id number] 1960 Unknown [id number] [id number] [id number] 1960 Unknown [id number] 2.16.84 [id number] 1960 Unknown [id number] [id number] [id number] 1960 Unknown [id number] 2.16.8 [id number] 1960 Unknown [id number] [id number] [id number] [facility] [id number] Social History Date Type Detail Facility Start: 12-01-2022 [facility] [employer] History of tobacco use Cigarette Smoker B ON [employer] Start: 12-01-2022 Cigarettes smoked current (pack per day) - Reported 1 [employer] Start: 12-01-2022 Tobacco use and exposure Smoke less tobacco non-user [facility] [employer] Start: 12-01-2022 End: 01-19-2023 Alcohol intake Lifetime non-drinker (finding) [employer] Start: 10-23-2018 History SDOH Alcohol Frequency 1 [facility] [employer] Start: 1960 Sex Assigned At Not on file B ON [employer] Medical Equipment Procedure Code Equipment Code Equipment Origin al Text Equipment Identifier Dates Lens Intraocular Bcnvx 22+ Diopt 6x12.5 Mm Acryl [employer] - [id number] Start: 12-01-2022 Lens Intraocular Bcnvx 22+ Diopt 6x12.5 Mm Acryl [employer] - [id number] Start: 01-19-2023 History of Present illness Narrative 01-19-2023 Scot Velazquez RN - 01/19/2023 11:25 AM Ssuan Velazquez RN - 01/19/2023 11:20 AM Susan [...] phone call. documented in this encounter [facility] Discharge instructions 01-19-2023 Discharge Instructions Note [...] the healing period. The office number is [phone]. Take surgery bag and all eye drops to Dr. Scherer's office tomorrow at 9:50am. You may resume your normal diet. Start your eye drops tomorrow after your post-op appointment: Ofloxacin/Polytrim one drop to the operated eye 4 times daily Prednisolone one drop to the operated eye 4 times daily documented in this encounter [facility] History of Present illness Narrative [...] the end of procedure. EKG received from [facility], will have anesthesia review. Patient [...] EKG done. documented in this encounter [facility] Discharge instructions 12-01-2022 Discharge Instructions Note [...] the healing period. The office number is [phone]. Take surgery bag and all eye drops to Dr. Scherer's office tomorrow at 8:50am. You may resume your normal diet. Start your eye drops tomorrow after your post-op appointment: Ofloxacin/Polytrim one drop to the operated eye 4 times daily Prednisolone one drop to the operated eye 4 times daily documented in this encounter [facility] Evaluation note Note Date & Type Note Facility Evaluation note Diagnosis Age-related nuclear cataract of left eye- Primary Senile nuclear sclerosis documented in this encounter [facility] Evaluation note Note Date & Type Note Facility Evaluation note Diagnosis Age-related nuclear cataract of right eye- Primary Senile nuclear sclerosis documented in this encounter [facility] Summary Purpose Family History No [...] and content) DATE CREATED AUTHOR 11/30/2017 [facility] DATE CREATED AUTHOR AUTHOR'S ORGANIZ ATION 01/19/2019 [facility] DATE CREATED AUTHOR AUTHOR'S ORGANIZ ATION 04/13/2021 [facility] DATE CREATED AUTHOR AUTHOR'S ORGANIZ ATION 08/26/[address] [facility] DATE CREATED AUTHOR AUTHOR'S ORGANIZ ATION 09/14/2022 [facility] DATE CREATED AUTHOR AUTHOR'S ORGANIZ ATION 01/22/2023 [facility] DATE CREATED AUTHOR AUTHOR'S ORGANIZ ATION 06/04/2023 [facility] Reason for Visit (unrecogniz ed section and content) Specialty Diagnoses / Procedures Referred By Mo garza Referred To Contact Diagnoses Age-related nuclear cataract of left eye AGE-RELATED NUCLEAR CAT 3+ NS, 1+PSC Procedures OR XCAPSL CTRC RMVL INSJ IO LENS PROSTH W/O ECP EYE CATARACT EMULSIFICATION IOL IMPLANT Elvira Scherer, DO [address] [place] [address] [facility] [address] [place] [address] Referral ID Status Reason Start Date Expiration Date Visits Re quested Visits Authorized [id number] 1 1 Specialty Diagnoses / Procedures Referred By Mo garza Referred To Contact Diagnoses 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 [H25.811] Procedures OR XCAPSL CTRC RMVL INSJ IO LENS PROSTH W/O ECP EYE CATARACT EMULSIFICATION IOL IMPLANT Elvira Scherer, DO [address] [place] [address] [facility] [address] [place] [address] Referral ID Status Reason Start Date Expiration Date Visits Re quested Visits Authorized [id number] 1 1 Scheduled Active and Recently Administ [...] minutes, starting 30 minutes prior to surgery, [facility] - enter number of doses based [...] Care Teams (unrecognized sec tion and content) Music Engineer Relationship Specialty Start Date End Date Ryan Arevalo MD [address] [place] [address] PCP - General Family Medicine 10/22/18 FOR [...] BE BASED ON THE PRIMARY CLINICAL RECORDS. [employer] [facility]. provides no warranty or guarantee of the accuracy or completeness of information in this document.
[2024-05-11 09:33] LABS: Free T3 2.26 pg/mL (2.18-3.98); Thyroid Stimulating Hormone 1.538 uIU/mL (0.358-3.740)
== END 2024-05-11 08:37 | disposition home or self-care (01) ==
LOC: LAB 08:36
PROVIDERS: PCP Family Medicine; Visit Provider Family Medicine
DX: E03.9 Hypothyroidism, unspecified (principal)
CPT/HCPCS: 36415; 84436; 84443; 84481

== ENCOUNTER 2025-04-03 07:30 | Outpatient (OUT) | payer MEDICARE, SELFPAY ==
--- OUTSIDE RECORDS SUMMARY | 2025-03-28 06:00 | XMS_ITS ---
Author Organization [facility] in [place] Address [address] [place] [address] Care Team Providers Care Carpenter Railcar Name Role Phone Radames Arevalo Primary Care Provider Allergies No Known Allergies REASON FOR VISIT Presents to office alone for yearly check up., c/o right shoulder pain x1 month. Denies any known injury Medications Medication SIG (Take, Route, Frequency, Duration) Notes Start Date End Date Status Metoprolol Succinate ER 50 MG 1 tablet Orally On ce a day; Duration: 30 days ActiveMegestrol Acetate 40 MG/ML1 mL Orally Once a day; Duration: 90 days 03/22/2025tiveVitamin D3 125 MCG (5000 UT)1 capsule Orally Once a day 09/08/2022ctiveTrelegy Ellipta 100-62.5-25 MCG/ACT1 puff Inhalation Once a day; Duration: 30 days11/27/2022ctiveLisinopril 20 MGTAKE 1 TABLET BY MOUTH ONCE DAILY; Duration: 90 daysActiveAspirin 81 81 MG1 tablet Orally Once a dayActive Atorvastatin Calcium 80 MG1 tablet Orally Once a day; Duration: 90 days 04/13/2024ctiveAlendronate Sodium 70 MG1 tablet 30 minutes before the first food, beverage or medicine of the day with plain water Orally weekly; Duration: 90 daysActiveCitalopram Hydrobromide 20 MGTAKE 1 TABLET BY MOUTH DAILY; Duration: 90Not-TakingLevothyroxine Sodium 50 MCG1 tablet in the morning on an empty stomach Orally Once a day; Duration: 90 days04/18/2024ctive Social History Tobacco Use: Social History Observation Description Date Details (start date - stop date) Current Smoker NA - NA Tobacco Use/Smoking Question Answer Notes Patient is a current every day smoker AUDIT-C (Standard) Question Answer Notes Did you have a drink containing alcohol in the p ast year? No Nqaioo0CrskstqfzgzpxsFtpcuyga Problems Problem Type SNOMED Code ICD Code Onset Dates Problem Status W/U Status Risk Notes Problem Hypertension (01886641) Hypertension (I10 ) ActiveconfirmedProblemOsteoporosis (00137384)Osteoporosis (M81.0)Activeconfirmed Vital Signs Weight 94.6 lbs 03/28/2025 Height 61 in 03/28/2025 Blood pressure systolic 106 mm Hg 03/28/20 25 Blood pressure diastolic 58 mm Hg 025 BMI 17.87 kg/m2 03/28/2025 Encounters Encounter Location Date Provider Diagnosis [facility] [address] [place] [address] 03/28/2025 Radames Hoy Chest pain R07.9 ; Hypothyroid E03.9 ; Shoulder pain, right M25.511 ; Osteoporosis M81.0 and Hypertension I10 Assessments Encounter Date Diagnosis (ICD Code) Assessment Notes Treatment Notes Treatment Clinical Notes Section Notes 03/28/2025 Chest pain (ICD-10 - R07.9) 03/28/2025Hypothyroid (ICD-10 - E03.9)03/28/2025Shoulder pain, right (ICD-10 - M25.511)03/28/2025Osteoporosis (ICD-10 - M81.0)03/28/2025Hypertension (ICD-10 - I10)having orthostatichypoetnsion Plan Of Treatment Medication Medication Name Sig Start Date Stop Date Notes Metoprolol Succinate ER 50 MG 1 tablet Orally On ce a day; Duration: 30 days Treatment Notes Assessment Notes Hypertension having orthostatichy poetnsion Pending Test Test Name Order Date HEMOGLOBIN A1C (GLYCO) 03/28/2025 IRON, TOTAL 03/28/2025 LIPID PANEL (CHOL/TRIG/HDL/LDL) 03/28/20 25 VITAMIN D, 25 LEVEL (TOTAL) 03/28/2025 STOOL OCCULT BLOOD 03/28/2025 CT CHEST WO CON 03/28/2025 XR DEXA BONE DENSITY 03/28/2025 XR SHOULDER RT 2V or > 03/28/2025 THYROID PANEL (T4/TSH/FREE T3) 5 MM screening mammo BI 03/28/2025 CMP (COMP MET BRIONES) w/eGFR CKD-EPI 2024 CBC WITH DIFF 03/28/2025 Progress Notes * Dacia FINLEY JDOB: [birth year] (64 yo F)Acc No.[id number]:03/28/2025 Progress Note Patient: Daica NEFF :?Enzo SophieCain Arevalo ([facility]), MDDOB:1960???Age: 64 Y???Sex:FemaleDate:03/28/2025Phone:[phone]:[address], [id number] In:09:53 AM ESTCheck Out:10:35 AM EST Subjective: * Chief Complaints: * P resents to office alone for yearly check up.c/o right shoulder pain x1 month. Denies any known injury * HPI: ???Depression Screening:?PHQ-2 (2015 Edition)?Little interest or pleasure in doing things? Not at all ?Feeling down, depressed, or hopeless??Not at all ?Total Score?0 ? Oseoporosis -taking mes Hypothroid - may need to change to armour yeisonid R rob pain - neec x-ray HTN - stabel pn meds COPD - stil smoking. * ROS: ???EENT:?hearing changes?denies.?visual changes?denies. non-healing mouth sores?denies.?swollen glands or neck lumps?denies.?hoarseness?denies.?sore throat?denies.?difficulty swallowing?denies.?nose bleeds?denies.?nasal congestion?denies.?ear ache?denies.?ear discharge denies.?ringing in ears?denies.?light sensitivity?denies.?eye pain?denies.?blurring?denies.?eye irritation?denies.?double vision?denies. vision loss?denies.?General/Constitutional:?Sweats:?Denies.?Fatigue?denies.?Sleep proble ms?denies.?Anorexia?denies.?Malaise?denies.?Weight loss?denies. Fatigue or Weakness?denies.?Fever or Chills?denies.?Cardiovascular:?Shortness of Breath w/lying flat?denies.?Lightheadedne ss/dizziness?denies.?Chest tightness/ heavy pressure?denies.?Swelling of legs, a nkles, or feet?denies.?Waking up with shortness of breath?denies.?Chest pain&#16 0;denies.?Palpitations?denies.?Weight gain?denies.?Respiratory:?Chronic or frequent cough?denies.?Coughing up blood&#1 60;denies.?Difficulty breathing?denies.?Productive cough?denies.?Snoring&#1 60;denies.?Shortness of breath that awakens from sleep (PND)?denies.?Chest pain? denies.?Sputum production?denies.?Wheezing?denies.?Musculoskeletal:?Joint pain?denies.?Joint Fluid?denies.?Backpain?denies.?Knee pain?denies.?Neck pain?denies.?Joint Stiffness?denies.?Muscle cramps?denies.?Weakness of muscles?denies.?Arthritis?denies.?Muscle aches?denies.?Pain in shoulder(s)?denies.?Swollen joints?denies.? * Active Problem List S06.5X9A Subdural hematoma Modified On:12/16/2018W/U Status:sqruugdyqP21.5Presence of coronary angioplasty implant and graft Modified On:12/05/2022W/U Status:rzxmhozhaQ30.11Age-related nuclear cataract, right eye Modified On:01/20/2023W/U Status:ibfdmlqpmG11.9Chest pain Modified On:06/16/2023 Status:oygfsdvpqH64.1Solitary pulmonary nodule Modified On:09/29/2023 Status:vrewmuwaaL39.89Abnormal findings on diagnostic imaging of other specified body structures Modified On:10/08/2023U Status:hjfgscstbB03.00Well adult Modified On:04/13/2024 Status:smzedcpegR43.9Hypothyroid Modified On:04/18/2024 Status:pmmpcxbxbN20.0Osteoporosis Modified On:03/28/2025 Status:kuhwtjzevW89Hlipvivvkuxq Modified On:03/28/2025 Status:confirmed * Medical History: * Surgical History: t ubal ligation Breast cyst removal Cataract Removal- lens implant Right Eye Intraocular lens implant 01/19/23 * Hospitalization/Major Diagno stic Procedure: * Family History: F ather: . M other: . * Social History: ???Tobacco Use:?Tobacco Use/Smoking?Patient is a?current every day smoker ???Drug/Alcohol:?AUDIT-C (Standard)?Did you have a drink containing alcohol in the past year??No ?Points?0 ?Interpretation?Negative * Medications: T akingAlendronate Sodium 70 MG Tablet 1 tablet 30 minutes before the first food, beverage or medicine of the day with plain water Orally weekly Aspirin 81(Aspirin) 81 MG Tablet Delayed Release 1 tablet Orally Once a day Atorvastatin Calcium 80 MG Tablet 1 tablet Orally Once a day Levothyroxine Sodium 50 MCG Tablet 1 tablet in the morning on an empty stomach Orally Once a day Lisinopril 20 MG Tablet TAKE 1 TABLET BY MOUTH ONCE DAILY Megestrol Acetate 40 MG/ML Suspension 1 mL Orally Once a day Metoprolol Succinate ER 100 MG Tablet Extended Release 24 Hour TAKE 1 TABLET BY MOUTH ONCE DAILY Trelegy Ellipta(Sqbsgzeabwk-Zfxqxwexo-Mpdpno) 100-62.5-25 MCG/ACT Aerosol Powder Breath Activated 1 puff Inhalation Once a day Vitamin D3 125 MCG (5000 UT) Capsule 1 capsule Orally Once a day Taking Alendronate Sodium 70 MG Tablet 1 tablet 30 minutes before the first food, beverage or medicine of the day with plain water Orally weekly Taking Aspirin 81(Aspirin) 81 MG Tablet Delayed Release 1 tablet Orally Once a day Taking Atorvastatin Calcium 80 MG Tablet 1 tablet Orally Once a day Taking Levothyroxine Sodium 50 MCG Tablet 1 tablet in the morning on an empty stomach Orally Once a day Taking Lisinopril 20 MG Tablet TAKE 1 TABLET BY MOUTH ONCE DAILY Taking Megestrol Acetate 40 MG/ML Suspension 1 mL Orally Once a day Taking Metoprolol Succinate ER 100 MG Tablet Extended Release 24 Hour TAKE 1 TABLET BY MOUTH ONCE DAILY Taking Trelegy Ellipta(Cqrpvkucckf-Pwhzghbax-Aeowvq) 100-62.5-25 MCG/ACT Aerosol Powder Breath Activated 1 puff Inhalation Once a day Taking Vitamin D3 125 MCG (5000 UT) Capsule 1 capsule Orally Once a day Not-Taking/PRNCitalopram Hydrobromide 20 MG Tablet TAKE 1 TABLET BY MOUTH DAILY Medication List reviewed and reconciled with the patientNot-Taking/PRN Citalopram Hydrobromide 20 MG Tablet TAKE 1 TABLET BY MOUTH DAILY Medication List reviewed and reconciled with the patient * Allergies: N .K.D.A.no[Allergies Verified] Objective: * Vitals: W t:94.6lbs, Ht: 61 in, BP:106/58mm Hg, BMI:17.87Index, Ht-cm: 154.94 cm, Wt-k.91 kg. * Examination: ???Physical Exam: ?GENERAL:?well developed, well nourished, in no acute distress.?HEAD:?normocephalic/atraumatic.?EYES:?pupils equal, round and reactive to light, conjunctivae and sclerae normal.?EARS:?no deformity or lesion of external ear, canals and TM appear normal bilaterally, TM's intact, not inflamed with normal light reflex, hearing grossly normal to conversational speech.?NOSE:?no deformity, discharge, inflammation, or lesions. ?MOUTH:?mucous membranes moist, normal oropharynx and posterior pharynx without lesions or exudates, tongue normal, dentition normal.?NECK:?neck supple, no masses or palpable cervical nodes, trachea midline, thyroid without nodules, masses, tenderness, or enlargement.?CHEST:?no chest wall deformity, no chest wall tenderness. ?LUNGS:?normal respiratory effort and clear to auscultation, no wheezes, rales, or rhonchi, good air exchange.?CARDIO:?regular rate and rhythm, normal S1 and S2, nor murmur, rub, or gallop.?PULSES:?normal capillary refill.?ABDOMEN:?soft, non-distended, non-tender, no masses.?MUSCULOSKELETAL:?no deformity or scoliosis noted, normal range of motion, joints normal, no erythema, edema, effusion, or ecchymosis.?EXTREMITY:?no clubbing, cyanosis, edema, or deformity withnormal ROM in both upper and lower bilateral extremities.?NEUROLOGIC:?grossly normal.?SKIN:?no rashes, ulcerations, or suspicious lesions.?LYMPH NODES:?no cervical adenopathy, nodes normal.?MENTAL STATUS:?alert and oriented x3, normal mood and affect.? Assessment: * Assessment: 1.?Chest pain - R07.9 (Primary)???2.?Hypothyroid - E03.9???3.?Shoulder pain, right - M25.511???4.?Osteoporosis - M81.0?? 5.?Hypertension - I10??? Plan: * Treatment: ?LAB: HEMOGLOBIN A1C (GLYCO) ?LAB: IRON, TOTAL ?LAB: LIPID PANEL (CHOL/TRIG/HDL/LDL) ?LAB: VITAMIN D, 25 LEVEL (TOTAL) ?LAB: STOOL OCCULT BLOOD ?LAB: THYROID PANEL (T4/TSH/FREE T3) ?LAB: CMP (COMP MET BRIONES) w/eGFR CKD-EPI ?LAB: CBC WITH DIFF ?Imaging: CT CHEST WO CON ?Imaging: XR DEXA BONE DENSITY ?Imaging: MM screening mammo BI2.?Hypothyroid?LAB: HEMOGLOBIN A1C (GLYCO) ?LAB: IRON, TOTAL ?LAB: LIPID PANEL (CHOL/TRIG/HDL/LDL) ?LAB: VITAMIN D, 25 LEVEL (TOTAL) ?LAB: STOOL OCCULT BLOOD ?LAB: THYROID PANEL (T4/TSH/FREE T3) ?LAB: CMP (COMP MET BRIONES) w/eGFR CKD-EPI ?LAB: CBC WITH DIFF3.?Shoulder pain, right?LAB: HEMOGLOBIN A1C (GLYCO) ?LAB: IRON, TOTAL ?LAB: LIPID PANEL (CHOL/TRIG/HDL/LDL) ?LAB: VITAMIN D, 25 LEVEL (TOTAL) ?LAB: STOOL OCCULT BLOOD ?LAB: THYROID PANEL (T4/TSH/FREE T3) ?LAB: CMP (COMP MET BRIONES) w/eGFR CKD-EPI ?LAB: CBC WITH DIFF ?Imaging: XR SHOULDER RT 2V or >4.?Osteoporosis?LAB: HEMOGLOBIN A1C (GLYCO) ?LAB: IRON, TOTAL ?LAB: LIPID PANEL (CHOL/TRIG/HDL/LDL) ?LAB: VITAMIN D, 25 LEVEL (TOTAL) ?LAB: STOOL OCCULT BLOOD ?LAB: THYROID PANEL (T4/TSH/FREE T3) ?LAB: CMP (COMP MET BRIONES) w/eGFR CKD-EPI ?LAB: CBC WITH DIFF5.?Hypertension? Refill Metoprolol Succinate ER Tablet Extended Release 24 Hour, 50 MG, 1 tablet, Orally, Once a day, 30 days, 30 Tablet, Refills 11.?LAB: HEMOGLOBIN A1C (GLYCO) ?LAB: IRON, TOTAL ?LAB: LIPID PANEL (CHOL/TRIG/HDL/LDL) ?LAB: VITAMIN D, 25 LEVEL (TOTAL) ?LAB: STOOL OCCULT BLOOD ?LAB: THYROID PANEL (T4/TSH/FREE T3) ?LAB: CMP (COMP MET BRIONES) w/eGFR CKD-EPI ?LAB: CBC WITH DIFF Notes: having orthostatichypoetnsion?? * Procedure Codes: * Preventive Medicine: ??Screenings/Counseling:?TOBACCO ACTION PLAN?Patient counselled on the dangers of tobacco use and urged to quit.? 03/28/2025 . ?FALL RISK SCREENING?Fall Risk Assessment:?No falls in the past year ?BMI ACTION PLAN?Below Normal BMI Follow-up?Dietary management education, guidance, and counseling * * Sign off status: CompletedVisit Status:?CHK (Check Out) true * Provider: Porter Arevalo ([facility])MD Date: Generated for Printing/Faxing/eTransmitting on:?04/03/2025 07:34 AM EDT History and Physical Notes * HPI (History of Present Illness) CategorySub-CategoryDetailNotesCategory NotesDepression ScreeningPHQ-2 (2015 Edition)Little interest or pleasure in doing things?: Not at all Oseoporosis -taking mes Hypothroid - may need to change to armour yeisonid R shouler pain - neec x-ray HTN - stabel pn meds COPD - stil smoking Feeling down, depressed, or hopeless?: Not at allTotal Score: 0 Examination CategorySub-CategoryDetailNotesCategory NotesPhysical ExamGENERAL:well developed, well nourished, in no acute distressHEAD:normocephalic/atraumatic EYES:pupils equal, round and reactive to light, conjunctivae and sclerae normal EARS:no deformity or lesion of external ear, canals and TM appear normal bilaterally, TM's intact, not inflamed with normal light reflex, hearing grossly normal to conversational speechNOSE:no deformity, discharge, inflammation, or lesionsMOUTH:mucous membranes moist, normal oropharynx and posterior pharynx without lesions or exudates, tonguenormal, dentition normalNECK:neck supple, no masses or palpable cervical nodes, trachea midline, thyroid without nodules, masses, tenderness, or enlargementCHEST:no chest wall deformity, no chest wall tendernessLUNGS:normal respiratory effort and clear to auscultation, no wheezes, rales, or rhonchi, good air exchangeCARDIO:regular rate and rhythm, normal S1 and S2, nor murmur, rub, or gallopPULSES:normal capillary refillABDOMEN:soft, non-distended, non-tender, no massesRECTAL:MUSCULOSKELETAL:no deformity or scoliosis noted, normal range of motion, joints normal, no erythema, edema, effusion, or ecchymosisEXTREMITY:no clubbing, cyanosis, edema, or deformity with normal ROM in both upper and lower bilateral extremitiesNEUROLOGIC:grossly normalSKIN:no rashes, ulcerations, or suspicious lesionsLYMPH NODES:no cervical adenopathy, nodes normalMENTAL STATUS:alert and oriented x3, normal mood and affect
--- OUTSIDE RECORDS SUMMARY | 2025-04-03 07:35 | XMS_ITS | Clinical Summary ---
Author Organization [facility] Address [address] [place] [address] Care Team Providers Care Journal Entry Audit Clerk Name Role Phone Unavailable Primary Care Provider Unavailabl e Social History Tobacco UseTypesPacks/DayYears UsedDateSmoking Tobacco: Never Assessed CommentsUnknownSex and Gender InformationValueDate RecordedSex Assigned at Not on fileLegal NnjXqpdje64/30/2022 12:02 AM EDTGender IdentityNot on file Sexual OrientationNot on file Last Filed Vital Signs Vital SignReadingTime TakenCommentsBlood Lcpeixic361/8810 9:49 AM EDT Pulse--Temperature--Respiratory Rate--Oxygen Xtfndbumtu11%03/13/2021 9:47 AM EDTInhaled Oxygen Concentration--Mxitwv99.9 kg (110 lb)03/13/2021 9:46 AM EDT Eobhkz877.1 cm (5' 5 )03/13/2021 9:46 AM EDTBody Mass Index18.310 9:46 AM EDT Plan of Treatment Not on file
--- OUTSIDE RECORDS SUMMARY | 2025-04-03 07:35 | XMS_ITS | Clinical Summary ---
Author Organization [facility] Address [address], [address] [place] [address] Care Team Providers Care Community Engagement Coordinator Name Role Phone Enzo Arevalo MD Primary Care Provider [phone] Allergies No known active allergies Medications MedicationSigDispense QuantityRefillsLast FilledStart DateEnd DateStatus Metoprolol-HCTZ ER 25-12.5 MG TB24 Take 25 mg by mouth dailyActive atorvastatin (LIPITOR) 80 MG tablet Take 1 tablet by mouth dailyActive levETIRAcetam (KEPPRA) 500 MG tablet Take 1 tablet by mouth 2 times daily for 8 doses 8 tablet 10/26/2018Active lisinopril (PRINIVIL;ZESTRIL) 10 MG tablet Take 1 tablet by mouth daily 30 tablet Active wbuplytlvmp-acmodluit-hggpng (TRELEGY ELLIPTA) 100-62.5-25 MCG/ACT AEPB inhaler Inhale 1 puff into the lungs dailyActive citalopram (CELEXA) 20 MG tablet Take 1 tablet by mouth dailyActive alendronate (FOSAMAX) 70 MG tablet Take 1 tablet by mouth every 7 daysActive Multiple Vitamins-Minerals (VITAMIN D3 COMPLETE PO) Take by mouthActive aspirin 81 MG chewable tablet Take 1 tablet by mouth dailyActive Active Problems ProblemNoted DateDiagnosed DateSubdural qygoikan06/17/2019 Resolved Problems ProblemNoted DateDiagnosed DateResolved DateAge-related nuclear cataract of right eye/ge-related nuclear cataract of left eye11/30/2022 12/01/2022 Social History Tobacco UseTypesPacks/DayYears UsedDateSmoking Tobacco: Every XtwEcdglmtmfi188 Smokeless Tobacco: Never Tobacco Cessation:Ready to Q uit: Not Asked; Counseling Given: Not Answered Alcohol UseStandard Drinks/WeekCommentsNever0 (1 standard drink = 0.6 oz pure alcohol)AUDIT-CAnswerDate RecordedFrequency of Alcohol ConsumptionNever 10/23/2018Average Number of DrinksNot on file10/23/2018Frequency of Binge DrinkingNot on file10/23/2018Interpersonal Safety Domain Source: IP Abuse ScreeningAnswerDate RecordedRead-Only, Retired: Physical PpywaZwyhwy54/14/2023 Read-Only, Retired: Verbal AsoptTerzjj67/14/2023Read-Only, Retired: Emotional kzidoBkzvws34/14/2023Read-Only, Retired: Financial TakvlVbvvnv86/14/2023Read- Only, Retired: Sexual xzyyfEyigwi20/14/2023CommentsNoSex and Gender InformationValueDate RecordedSex Assigned at BirthNot on fileLegal SexFemale 07/18/2012 11:41 AM ESTGender IdentityNot on fileSexual OrientationNot on file Last Filed Vital Signs Vital SignReadingTime TakenCommentsBlood Gbinmdqx584/9201/19/2023 11:15 AM EDT Ppwwu277001/19/2023 11:15 AM AWTVfegkxhpnow44.1 ??C (96.9 ??F)01/19/2023 10:48 AM EDTRespiratory Mfus298901/19/2023 11:15 AM EDTOxygen Srvwiydgql81%01/19/2023 11:15 AM EDTInhaled Oxygen Concentration--Poehgc87.6 kg (105 lb)01/19/2023 9:50 AM EDT Uudzef746.9 cm (5' 1 )01/19/2023 9:50 AM EDTBody Mass Index19.8401/19/2023 9:50 AM EDT Plan of Treatment Health MaintenanceDue DateLast DoneCommentsDepression Cjyrym3808/30/1971HIV screen 08/29/1974Hepatitis C lxblyl0608/29/1977DTaP/Tdap/Td vaccine (1 - Tdap)08/29/1978 Pneumococcal 50+ years Vaccine (1 of 2 - PCV)08/29/1978Breast cancer screen 08/30/19992529Mjldgtzbfhk83/24/2005Colorectal Cancer Akhuvd6808/29/2004FIT/FOBT: Average risk08/29/2004Fecal-DNA (Cologuard): Average risk08/29/2004 Sigmoidoscopy/CT tehxkrtbtfee53/24/2005Lung Cancer Screening &/or Counseling 08/29/2009Shingles vaccine (1 of 2)08/29/2009DEXA (modify frequency per FRAX score)08/29/2014Respiratory Syncytial Virus (RSV) or age 60 yrs+ (1 - Risk 60-74 years 1-dose series)08/30/20192641Ncbsgf42/20/Flu vaccine (#1)5COVID-19 Vaccine ( - season)2025Hepatitis A vaccine Aged OutNo longer eligible based on patient's age to complete this topic Hepatitis B vaccineAged OutNo longer eligible based on patient's age to complete this topicHib vaccineAged OutNo longer eligible based on patient's age to complete this topicMeningococcal (ACWY) vaccineAged OutNo longer eligible based on patient's age to complete this topicMeningococcal B vaccineAged OutNo longer eligible based on patient's age to complete this topicPolio vaccineAged OutNo longer eligible based on patient's age to complete this topic Medical Devices ImplantedTypeAreaManufacturerDevice IdentifierShelf Expiration DateModel / Serial / LotLens Intraocular Bcnvx 22+ Diopt 6x12.5 Mm Acryl Envista - [id number] Implanted:Qty: 1 on 12/01/2022 [facility] [place] EyeBAUSCH AND LOMB-WD08/05/[id number] / [id number] / Lens Intraocular Bcnvx 22+ Diopt 6x12.5 Mm Acryl Envista - [id number] Implanted:Qty: 1 on 01/19/2023 [facility] [place]: EyeBAUSCH AND LOMB-11/05/[id number] / [id number] / Procedures Procedure NamePriorityDate/TimeAssociated DiagnosisCommentsLIPID PANELRoutine 10/25/2018 6:36 AM EDT from Last 3 Months or Most Recently Relevant to Health Maintenance Results * (ABNORMAL) Lipid Panel (10/25/2018 6:36 AM EDT)ComponentValueRef RangeTest MethodAnalysis TimePerformed AtPathologist BsmjhqicaIzdqmzwbfga281<200 mg/dL 10/25/2018 6:36 AM EDTMERCY LABORATORIESComment: Cholesterol Guidelines: <200 Desirable 200-240 ??Borderline >240 Undesirable HDL37(L)>40 mg/dL10/25/2018 6:36 AM EDTMERCY LABORATORIESComment: HDL Guidelines: <40 Undesirable 40-59 ?Borderline >59 Desirable LDL Rcougynrewa289 - 130 mg/dL10/25/2018 6:36 AM EDTMERCY LABORATORIESComment: LDL Guidelines: <100 Desirable 100-129 ?? Near to/above Desirable 130-159 ?? Borderline >159 Undesirable Direct (measured) LDL and calculated LDL are not interchangeable tests. Chol/HDL Ratio3.1<505 6:36 AM EDTMERCY LABORATORIESComment:Triglycerides 71<150 mg/dL10/25/2018 6:36 AM EDTMERCY LABORATORIESComment: Triglyceride Guidelines: <150 Desirable 150-199 ??Borderline 200-499 ??High >499 Very high Based on AHA Guidelines for fasting triglyceride, March 2012. VLDLNOT REPORTED1 - 30 mg/dL10/25/2018 6:36 AM EDTMERCY LABORATORIESSpecimen (Source)Anatomical Location / LateralityCollection Method / VolumeCollection TimeReceived Time10/25/2018 6:36 AM EDT10/25/2018 6:36 AM EDT Narrative Authorizing ProviderResult TypeResult StatusMohammed S Ahmed MDCHEMISTRY ORDERABLESFinal ResultPerforming OrganizationAddressCity/State/ZIP CodePhone Number [facility] [address] [place] [address], [facility] [phone] from Last 3 Months or Most Recently Relevant to Health Maintenance Insurance Advance Directives * Full Code (Latest Code Status on File) Date ActivatedDate InactivatedComments01/19/2023 9:38 AM01/19/2023 1:37 PM * Full Code Date ActivatedDate InactivatedComments12/01/2022 8:08 AM12/01/2022 12:28 PM * Full Code Date ActivatedDate InactivatedComments10/22/2018 11:13 PM10/26/2018 6:13 PM Care Teams Team MemberRelationshipSpecialtyStart DateEnd Date Enzo Arevalo MD [address] [place] [address] PCP - GeneralFamily Medicine10/22/18
--- OUTSIDE RECORDS SUMMARY | 2025-04-03 07:35 | XMS_ITS | Clinical Summary ---
Author Organization [facility] Address [address] [place] [address] Care Team Providers Care Maintenance Craftsman Name Role Phone Rayray Winters Primary Care Provider Unavailabl e Social History Tobacco UseTypesPacks/DayYears UsedDateSmoking Tobacco: Never Assessed CommentsUnknownSex and Gender InformationValueDate RecordedSex Assigned at Not on fileLegal BmcYuqqul26/02/2012 9:11 AM ESTGender IdentityNot on fileSexual OrientationNot on file Plan of Treatment Health MaintenanceDue DateLast DoneCommentsAnxiety Kjijyqvgj45/24/1978Depression Kalvpiukt31/24/1978HIV Gdeufvjpo94/24/1978Hepatitis C Zrtdduejm08/24/1978 DTaP,Tdap,Td Vaccine (1 - Tdap)08/29/1978Mammogram Ucdvscdyx54/24/2000CT Jmqvsmaokfmz28/24/2005Cologuard (FIT-DNA)08/29/20043503Zhjqglbhhqi54/24/2005 Colorectal Cancer Dhilmrjkn34/24/2005Diabetes Hsrkvuyhh32/24/2005Fecal Occult Blood08/29/2004Lipid Nlkgwvsxr10/24/1659Bcocxkhdmfoos31/24/2005Pneumococcal Vaccine: 50+ (1 of 1 - PCV)08/29/2009Shingrix Vaccine (1 of 2)08/29/2009dvance Directive Vdwuoljpxg93/24/2025Bone Density Lyyykjkjp66/24/2025ovid-19 Vaccine (1 - 2024- season)2025Influenza Vaccine (#1)2025RSV Vaccine (1 - 1-dose 75+ series)08/29/2034 Insurance * Guarantor: Lou Finley TypeRelation to PatientDate of BirthPhone Billing AddressPersonal/EiefmuZxns11[birth year][address] [address] Care Teams Team MemberRelationshipSpecialtyStart DateEnd Date Rayray Winters [address] [address] PCP - [facility]09/15/00
--- OUTSIDE RECORDS SUMMARY | 2025-04-03 07:35 | XMS_ITS | Patient Health Record ---
Author Organization [facility] [place] Address [address] [place] [address] Care Team Providers Care Home Health Travel Ot Name Role Phone Radames Lemos Primary Care Provider Allergies No Known Allergies Results Component Value Reference Range Notes FREE T3 Reviewed date:04/18/2024 01:12:26 PM Interpretation: Performing Lab: Notes/Report: [facility] , Free T3 2.78 2.18-3.98 pg/mL Performing Lab:see noteML - [facility] LBLIPID PROFILE Reviewed date:04/18/2024 01:12:26 PM Interpretation: Performing Lab: Notes/Report: [facility] ,Jcfdjdpwoeleo584<=150 mg/wMBhbdcammcju904<=200 mg/dLHDL Eaipwhvwdhh1191-57 mg/dL > or =60 mg/dl - LOW CARDIOVASCULAR RISK <40 mg/dl - HIGH CARDIOVASCULAR RISK LDL Cholesterol Akoysddhvg637.6 <100 mg/dl OPTIMAL 100-129 mg/dl NEAR OR ABOVE OPTIMAL 130-159 mg/dl BORDERLINE HIGH 160-189 mg/dl HIGH >190 mg/dl VERY HIGH VLDL UXYUNYHFFLM96.4Chol HDL Ratio3.8 3.3 - 4.4 LOW RISK 4.4 - 7.1 AVERAGE RISK 7.1 - 11.0 MODERATE RISK >11.0 HIGH RISK Performing Lab:see noteML - [facility] LBPROF 14(COMP METB) Reviewed date:04/18/2024 01:12:26 PM Interpretation: Performing Lab: Notes/Report: [facility] ,Clqerv846283-949 mmol/LPotassium4.53.5-5.1 mmol/OPvemjqab04935-810 mmol/LCarbon Ogzlosh81.721.0-32.0 mmol/LAnion Gap13.0Jknwcir9899-777 mg/dLBlood Urea Nitrogen 13.07.0-18.0 mg/dLCreatinine1.070.55-1.02 mg/dLEstimated GFR ( Eloise>60 >=60 mL/min/1.73m 2Estimated GFR (Non- Ame52>=60 mL/min/1.73m 2BUN Creatinine Ratio12.9Akuoaue6.58.5-10.1 mg/dLBilirubin Total0.30.2-1.0 mg/dL Aspartate Amino Ytpuvlnnhxi7364-70 U/LAlanine Gdbfmuftrgnzjaud6525-79 U/L Alkaline Ujshcwprcnf0189-252 U/LTotal Protein6.36.4-8.2 g/dLAlbumin Level3.33.4- 5.0 g/dLGlobulin3.0Albumin Globulin Ratio1.1Performing Lab:see noteML - [facility] LBT4 Reviewed date:04/18/2024 01:12:26 PM Interpretation: Performing Lab: Notes/Report: [facility] ,T4 Thyroxine7.704.80-13.90 ug/dLPerforming Lab:see noteML - [facility] LBTSH Reviewed date:04/18/2024 01:12:26 PM Interpretation: Performing Lab: Notes/Report: [facility] ,Thyroid Stimulating Hormone7.2750.358-3.740 uIU/mLPerforming Lab:see noteML - [facility] LBMM tomosynthesis screening BI Reviewed date:04/27/2024 12:27:01 PM Interpretation: Performing Lab: Notes/Report: Source Facility: [facility] [place] [address] [place] [address] Mammography Report Signed Patient: LOU FINLEY MR#: [id number] : 1960 Acct:[id number] Age/Sex: 63 / F ADM Date: 04/27/24 Loc: MAMMO Attending Dr: Enzo Lemos M.D. Ordering Physician: Enzo Lemos M.D. Results: Date of Service: 04/27/24 Follow Up: Procedure(s): MM tomosynthesis screening BI Accession Number(s): [id number] cc: Enzo Lemos M.D. Patient Name: LOU FINLEY MR#: [id number] : 1960 Exam Date: 04/27/2024 Ordering Doctor: DR ENZO LEMOS . RADIOLOGY REPORT PROCEDURE: MM TOMOSYNTHESIS SCREENING BI COMPARISON: MG MAMM SCREEN 3D GRICEL CAD, 08/15/2022. MG MAMM GRICEL SCRN W CAD DIG, 07/04/2015. INDICATIONS: Screening mammography Calculator Name NCI Breast Cancer Risk Assessment Tool 5 Year Breast Cancer Risk Not Reported. Lifetime Breast Cancer Risk Not Reported. Personal Breast Cancer No Personal Ovarian Cancer No Treatments None Family Cancers None LOCATION: [facility] BREAST COMPOSITION: The breasts are extremely dense, which lowers the sensitivity of mammography. [...] PALPABLE LUMP SHOULD BE BIOPSIED. Dictated by: Danny Herron MD on 04/27/2024 at 09:31 Approved by: Danny Herron MD on 04/27/2024 at 09:31 Dictated By: Danny Herron M.D. Signed By: 04/27/24 0933 DD/ 0932 TD/TT: Manager Business Process:JEANNE Reviewed date:04/18/2024 01:12:26 PM Interpretation: Performing Lab: Notes/Report: [facility] ,Iron65.050.0-170.0 ug/dLPerforming Lab:see noteML - [facility] LB GLYCOHEMOGLOBIN A1C Reviewed date:04/18/2024 01:12:26 PM Interpretation: Performing Lab: Notes/Report: [facility] ,Glycohemoglobin A1C5.34.5-6.2 % ADA RECOMMENDED LIMIT 4.0 - 6.0 ADA THERAPEUTIC TARGET < 7.0 ACTION SUGGESTED > 7.0 Estimated Average Bybsely645Brihakvutn Lab:see noteML - [facility] LB CBC AUTO DIFF Reviewed date:04/18/2024 01:12:26 PM Interpretation: Performing Lab: Notes/Report: [facility] ,White Blood Count9.14.0-11.0 10 3/uLRed Blood Count4.634.20-5.40 10 6/uL Mtabqrzkjj15.712.0-16.0 g/tPUprkyjptye19.836.0-48.0 %Mean Corpuscular Nkwpza46.6 81.0-99.0 fLMean Corpuscular Hkwhxwukss90.726.7-34.0 pgMean Corpuscular HGB Conc 33.629.9-35.2 g/dLRed Cell Distribution Width13.311.0-15.0 %Platelet Ojdqo704 150-450 10 3/uLMean Platelet Jyeluo30.49.5-13.5 fLNeutrophils Percent Auto54.1 43.0-75.0 %Lymphocytes Percent Auto32.320.5-60.0 %Monocytes Percent Auto8.61.7- 12.0 %Eosinophils Percent Auto3.40.9-7.0 %Basophils Percent Auto1.30.2-2.0 % Immature Granulocytes Pct Auto0.30.0-0.5 %Neutrophils Absolute Auto4.91.4-6.5 10 3/uLLymphocytes Absolute Auto3.01.2-3.8 10 3/uLMonocytes Absolute Auto0.80.3-0.8 10 3/uLEosinophils Absolute Auto0.30.0-0.7 10 3/uLBasophils Absolute Auto0.10.0- 0.1 10 3/uLImmature Granulocytes Abs Auto0.030.00-0.03 10 3/uLPerforming Lab:see noteML - [facility] LBTSH Reviewed date:05/11/2024 06:54:13 PM Interpretation: Performing Lab: Notes/Report: [facility] ,Thyroid Stimulating Hormone1.5380.358-3.740 uIU/mLPerforming Lab:see noteML - [facility] LBT4 Reviewed date:05/11/2024 06:54:13 PM Interpretation: Performing Lab: Notes/Report: [facility] ,T4 Thyroxine9.404.80-13.90 ug/dLPerforming Lab:see noteML - [facility] LBFREE T3 Reviewed date:05/11/2024 06:54:13 PM Interpretation: Performing Lab: Notes/Report: [facility] Zach T32.262.18-3.98 pg/mLPerforming Lab:see noteML - [facility] LB Reason For Referral No Information Medications Medication SIG (Take, Route, Frequency, Duration) Notes Start Date End Date Status Atorvastatin Calcium 80 MG TAKE 1 TABLET BY MOUT H DAILY; Duration: 90 ActiveAspirin 81 81 MG1 tablet Orally Once a dayActiveAlendronate Sodium 70 MG1 tablet 30 minutes before the first food, beverage or medicine of the day with plain water Orally weekly; Duration: 90 daysActiveMetoprolol Succinate ER 50 MG1 tablet Orally Once a day; Duration: 30 daysActiveMegestrol Acetate 40 MG/ML1 mL Orally Once a day; Duration: 90 days5ActiveVitamin D3 125 MCG (5000 UT) 1 capsule Orally Once a day09/08/2022ctiveTrelegy Ellipta 100-62.5-25 MCG/ACT1 puff Inhalation Once a day; Duration: 30 days11/27/2022ctiveCitalopram Hydrobromide 20 MGTAKE 1 TABLET BY MOUTH DAILY; Duration: 90Not-TakingLisinopril 20 MGTAKE 1 TABLET BY MOUTH ONCE DAILY; Duration: 90 daysActiveLevothyroxine Sodium 50 MCG1 tablet in the morning on an empty stomach Orally Once a day; Duration: 90 days04/18/2024ctive Immunizations Vaccine Route Administration Date Status Comme nts Flu, Flucelvax (12579) 6 mos and older, single-dose syringe (7665-9278) IM Intramuscular 04/13/2024 Administered Social History Tobacco Use: Social History Observation Description Date Details (start date - stop date) Current Smoker NA - NA Tobacco Use/Smoking Question Answer Notes Patient is a current every day smoker AUDIT-C (Standard) Question Answer Notes Did you have a drink containing alcohol in the p ast year? No Pktlex5QfvoinalupxergJuchbbkf Problems Problem Type SNOMED Code ICD Code Onset Dates Problem Status W/U Status Risk Notes Problem Age-related nuclear cataract of right eye (150097016981045) Age-related nuclear cataract, right eye (H25.11) ActiveconfirmedProblemSolitary pulmonary nodule (779095355)Solitary pulmonary nodule (R91.1)ActiveconfirmedProblemPresence of coronary angioplasty implant and graft (Z95.5)ActiveconfirmedProblemChest pain (76581408)Chest pain (R07.9)Active confirmedProblemHypertension (06085958)Hypertension (I10)ActiveconfirmedProblem Hypothyroid (92663033)Hypothyroid (E03.9)ActiveconfirmedProblemOsteoporosis (01790253)Osteoporosis (M81.0)ActiveconfirmedProblemWell adult (971646585)Well adult (Z00.00)ActiveconfirmedProblemSubdural hematoma (S06.5X9A)Activeconfirmed ProblemImaging result abnormal (608882023)Abnormal findings on diagnostic imaging of other specified body structures (R93.89)Activeconfirmed Vital Signs Heart Rate 96 /min 04/13/2024 Blood pressure aibhsmclp20 mm Hg03/28/20259370Equmtc65 in03/28/2025lood pressure epjlrqim892 mm Hg03/28/20255012Noflhm10.6 lbs1MI17.87 kg/m203/28/2025 Encounters Encounter Location Date Provider Diagnosis [address] [address] 04/13/2024 Radames Lemos Encounter for immunization Z23 and Well adult Z00.[address] [place] [address] 03/28/2025 Radames Hoy Chest pain R07.9 ; Hypothyroid E03.9 ; Shoulder pain, right M25.511 ; Osteoporosis M81.0 and Hypertension I10 [facility] [address] [place] [address] 04/18/2024 Radames Hoy Hypothyroid E03.9 [facility] [address] [place] [address] 04/27/2024 Radames Hoy [facility] [place] [address] 05/03/2024oug [facility] [facility] [place] [address]/oug [facility] [facility] [place] [address]/02/2025Doug HoyEncounter for immunization C45[facility] [facility] [place] [address]/ Radames [facility] [facility] [address]/Doug [facility] [facility] [address]/Doug [facility] [place] [address]/06/2024[facility] [place] [address]/06/2024Doug [facility] [facility] [place] [address]/ Radames Lemos Assessments Encounter Date Diagnosis (ICD Code) Assessment Notes Treatment Notes Treatment Clinical Notes Section Notes 04/13/2024 Encounter for immunization (ICD- 10 - Z23) 04/13/2024Well adult (ICD-10 - Z00.00)03/28/2025hest pain (ICD-10 - R07.9) 03/28/2025Hypothyroid (ICD-10 - E03.9)04/18/2024Hypothyroid (ICD-10 - E03.9) 06/16/2024Encounter for immunization (ICD-10 - Z23)03/28/2025Shoulder pain, right (ICD-10 - M25.511)03/28/2025Osteoporosis (ICD-10 - M81.0)03/28/2025 Hypertension (ICD-10 - I10)having orthostatichypoetnsion Plan Of Treatment Pending Test Test Name Order Date CMP (COMPLETE METABOLIC PANEL) 4 CMP (COMPLETE METABOLIC PANEL) 4 HEMOGLOBIN A1C (GLYCO) 04/13/2024 HEMOGLOBIN A1C (GLYCO) 03/28/2025 IRON, TOTAL 03/28/2025 IRON, TOTAL 04/13/2024 LIPID PANEL (CHOL/TRIG/HDL/LDL) 03/28/20 25 LIPID PANEL (CHOL/TRIG/HDL/LDL) 04/13/20 24 CBC WITH DIFF 04/13/2024 VITAMIN D, 25 LEVEL (TOTAL) 03/28/2025 CBC W/AUTO DIFF 03/24/2024 STOOL OCCULT BLOOD 03/24/2024 STOOL OCCULT BLOOD 03/28/2025 CT CHEST WO CON 03/28/2025 CT CHEST WO CON 09/29/2023 CT CHEST WO CON 10/07/2023 CT CHEST WO CON 02/10/2024 XR CHEST 2 V 02/26/2024 XR DEXA BONE DENSITY 03/28/2025 XR SHOULDER RT 2V or > 03/28/2025 THYROID PANEL (T4/TSH/FREE T3) 4 THYROID PANEL (T4/TSH/FREE T3) 4 THYROID PANEL (T4/TSH/FREE T3) 5 THYROID PANEL (T4/TSH/FREE T3) 4 MM screening mammo BI 04/13/2024 MM screening mammo BI 03/28/2025 CMP (COMP MET BRIONES) w/eGFR CKD-EPI 2024 CBC WITH DIFF 03/28/2025 Insurance Providers Payer Name Payer Address Payer Phone Subscriber Number Group Number Insured Name Patient Relationship to Insured Coverage Start Date Coverage End Date [place]IC[place] [address] [place] [address] [id number] Amina Finley - patient is the insured Medical (General) History Medical History History ICD Code hypertension Cardiac stentsSurgical History Surgery Date(Month/Year) Breast cyst removal tubal ligationCataract Removal- lens implantRight Eye Intraocular lens implant 01/19/23
--- OUTSIDE RECORDS SUMMARY | 2025-04-03 07:36 | XMS_ITS | CCD ---
Author Organization [facility] Care Team Providers Care Lead Die Molder Name Role Phone KEL BUENO Unavailable Unavailable RYAN AREVALO Unavailable Unavailable ALCAROLINEDAMILTON, AURORA HUSSAM Unavailable Unavailabl e RACHELE POST Unavailable Unavailable GA Unavailable Unavailable UNKNOWN, PROVIDER Unavailable Unavailable MEERA [...] Unavailable HOY ., DR DAVIS Consulting Unavailable SAN MARCOS, DR MEERA Maria Consulting Unavailable BILLY, DR CORINA Nichole Consulting Unavailable Ryan Arevalo MD Primary Care Provider [phone] RYAN AREVALO Primary Care Unavailable ELVIRA SCHERER Admitting Unavailable ELVIRA SCHERER Attending Unavailable RYAN AREVALO Primary Care Unavailable ELVIRA SCHERER Admitting Unavailable ELVIRA SCHERER Attending Unavailable Medications Current Medications MedicationDrug Class(es)DatesSig (Normalized)Sig (Original)alendronic acid 70 mg oral tablet (2 sources)Bisphosphonatealendronate (FOSAMAX) 70 MG tablet Take 1 tablet by mouth every 7 days 0 Activeaspirin 81 mg chewable tablet (2 sources)Platelet Aggregation Inhibitor, Nonsteroidal Anti-inflammatory Drug take 1 tablet by mouth once dailyaspirin 81 MG chewable tablet Take 1 tablet by mouth daily 0 Activeatorvastatin 80 mg oral tablet (2 sources)HMG-CoA Reductase Inhibitortake 1 tablet by mouth once daily atorvastatin (LIPITOR) 80 MG tablet Take 1 tablet by mouth daily 0 Activecalcium chloride 0.0014 meq/ml / potassium chloride 0.004 meq/ml / sodium chloride 0.103 meq/ml / sodium lactate 0.028 meq/ml injectable solution (2 sources)Start: 13-48-9638hpgiaxqr ringers IV soln infusionStart: 12-01-2022 lactated ringers IV soln infusioncitalopram 20 mg oral tablet (2 sources)Serotonin Reuptake Inhibitortake 1 tablet by mouth once daily citalopram (CELEXA) 20 MG tablet Take 1 tablet by mouth daily 0 Kgfcbs11 actuat fluticasone furoate 0.1 mg/actuat / umeclidinium 0.0625 mg/actuat / vilanterol 0.025 mg/actuat dry powder inhaler (2 sources)Anticholinergic, Corticosteroid, beta2-Adrenergic Agonisttake 1 puff(s) by inhalation once iqjcnmqnfswphrxj-thzstctwm-tkbnkn (TRELEGY ELLIPTA) 100-62.5-25 MCG/ACT AEPB inhaler Inhale 1 puff into the lungs daily 0 Uzhadc25 hr hydroCHLOROthiazide 12.5 mg / metoprolol succinate 25 mg extended release oral tablet (2 sources)Thiazide Diuretic, beta-Adrenergic Blockertake 25 mg by mouth once dailyMetoprolol-HCTZ ER 25-12.5 MG TB24 Take 25 mg by mouth daily 0 Active levETIRAcetam 500 mg oral tablet (1 source)Start: 72-54-1887hhkg 1 tablet by mouth twice dailylevETIRAcetam (KEPPRA) 500 MG tablet Take 1 tablet by mouth 2 times daily for 8 doses 8 tablet 0 10/26/2018 Activelisinopril 10 mg oral tablet (2 sources)Angiotensin Converting Enzyme InhibitorStart: 36-27-1752nxqy 1 tablet by mouth once dailylisinopril (PRINIVIL;ZESTRIL) 10 MG tablet Take 1 tablet by mouth daily 30 tablet 3 10/27/2018 ActiveMultiple Vitamins-Minerals (VITAMIN D3 COMPLETE PO) (2 sources)Multiple Vitamins-Minerals (VITAMIN D3 COMPLETE PO) Take by mouth 0 ActiveMultiple Vitamins-Minerals (VITAMIN D3 COMPLETE PO) Take by mouth 0 Suspendedphenylephrine hydrochloride 25 mg/ml ophthalmic solution (2 sources)alpha-1 Adrenergic AgonistStart: 92-48-9083nhulewlwlpfxl (MYDFRIN) 2.5 % ophthalmic solution 1 dropStart: 06-98-9379qisbnubnnaauk (MYDFRIN) 2.5 % ophthalmic solution 1 dropproparacaine hydrochloride 5 mg/ml ophthalmic solution (2 sources)Local AnestheticStart: 24-74-0547ebtyajaiaugm (ALCAINE) 0.5 % ophthalmic solution 1 dropStart: 78-56-0117bohxccybhddj (ALCAINE) 0.5 % ophthalmic solution 1 bfpk8019 ml sodium chloride 9 mg/ml injection (14 sources)Start: 42-67-1624VpckhQKEzdf, at 5-250 mL/hr, PRN, if patient receiving piggyback infusions and maintenance fluids are not ordered OR KVO fluids to protect IV site / prevent frequent line interruptions/ long duration, Starting on Thu01/19/23 at 1059 For piggyback infusion, administer at same rate as piggyback for atotal of 25 mL. Enter 25 mL into dose field and piggyback rate into rate field of order. If piggyback is infusing at a rate less than 100 mL/hr, enter 25 mL into dose field and 100 mL/hr into rate field of order. For KVO fluids, enter rate of 20 mL/hr or less into rate field of order. Post-opStart: 98-71-3635smql 1 dose intravenously twice daily5-40 mL, IntraVENous, EVERY 12 HOURS SCHEDULED (2 [...] Midline or Central Line = 20 mL/lumen Post-opStart: 01-19-2023 take 5-40 mL intravenously once as needed5-40 mL, IntraVENous, PRN, Starting on Thu01/19/23 at 1059, Until Discontinued, Line Care, After every IV line use For Line Patency: Peripheral IV = 5 mL; Midline or Central Line = 10 mL/lumen.&nb sp; If following IV push medication, administer flush [...] Midline or Central Line = 20 mL/lumen Post-opStart: .9 % sodium chloride infusionStart: 58-12-1215xfqkhn chloride flush 0.9 % injection 5-40 mLStart: 12-01-2022 IntraVENous, at 5-250 mL/hr, PRN, if patient receiving piggyback infusions and maintenance fluids are not ordered OR KVO fluids to protect IV site / prevent frequent line interruptions/ long duration, Starting on Thu12/01/22 at 0940 For piggyback infusion, administer at same rate as piggyback for atotal of 25 mL. Enter 25 mL into dose field and piggyback rate into rate field of order. If piggyback is infusing at a rate less than 100 mL/hr, enter 25 mL into dose field and 100 mL/hr into rate field of order. For KVO fluids, enter rate of 20 mL/hr or less into rate field of order. Post-opStart: 53-59-7569jzwk 1 dose intravenously twice daily5-40 mL, IntraVENous, EVERY 12 HOURS SCHEDULED (2 times per day), First dose on Thu12/01/22 at 1000, Until Discontinued For Line Patency: Peripheral IV = 5 mL; Midline or Central Line = 10 mL/lumen.&a mp;nbsp; If following IV push medication, administer flush at same rate as the IV push. Flush volume is determined by type of infusion therapy being given. For non-viscoussolutions use: Peripheral IV = 5 mL Midline or Central Line = 10 mL/lumen For viscous solutions (i.e. blood components, parenteral nutrition, contrast media, or after obtaining blood sample) use: Peripheral IV = 10 mL Midline or Central Line = 20 mL/lumen Post-opStart: 19-99-0476wvtk 5-40 mL intravenously once as needed5-40 mL, IntraVENous, PRN, Starting on Thu12/01/22 at [...] Midline or Central Line = 20 mL/lumen Post-opStart: 12-01-2022 0.9 % sodium chloride infusionStart: 64-62-5033uuyzpy chloride flush 0.9 % injection 5-40 mLtetracaine hydrochloride 5 mg/ml ophthalmic solution (2 sources)Suzie Local AnestheticStart: 64-98-5211pzvrjnpgep (TETRAVISC) 0.5 % ophthalmic solution 1 dropStart: 47-65-0717zimpphjxyi (TETRAVISC) 0.5 % ophthalmic solution 1 droptropicamide 10 mg/ml ophthalmic solution (2 sources)AnticholinergicStart: 70-98-3691cbommqebzsb (MYDRIACYL) 1 % ophthalmic solution 1 dropStart: 03-46-5291errjqymrcho (MYDRIACYL) 1 % ophthalmic solution 1 drop Completed/Discontinued Medications MedicationDrug Class(es)DatesSig (Normalized)Sig (Original)docusate sodium 50 mg / sennosides, custodial 8.6 mg oral tablet (1 source)Start: 10-26-2018 End: 27-36-8470ynht 1 tablet by mouth twice daily as needed for constipation sennosides-docusate sodium (SENOKOT-S) 8.6-50 MG tablet Take 1 tablet by mouth 2 times daily as needed for Constipation 30 tablet 0 10/26/2018 11/17/2022 Discontinued (LIST CLEANUP) Problems Active Problems Problem ClassificationProblemDateDocumented DateEpisodic/ChronicAcute cerebrovascular disease (2 sources)Hematoma of subdural space of neuraxis; Translations: [Subdural hematoma]Onset: 403609-43-5464DjovgudNvpzsxxv (9 sources)Age-related nuclear cataract of left eye; Translations: [Age-related nuclear cataract, left eye]Onset: 11-30-2022 Resolved: 98-97-1565ZrhehdpRirzsuxh atherosclerosis and other heart disease (1 source)Atherosclerotic heart disease of [place] coronary artery with unstable angina pectoris; Translations: [ATHSCL HEART DISEASE OF [place] COR ART W UNSTABLE ANG PCTRS]Onset: 02-79-0039VgffgigYgruhhbk, including migraine (1 source)Migraine, unspecified, not intractable, without status migrainosus; Translations: [MIGRAINE, UNSP, NOT INTRACTABLE, WITHOUT STATUS MIGRAINOSUS] Onset: 38-65-9668HftxncqEngfhndqha disorders (1 source)Other primary ovarian failure; Translations: [OTHER PRIMARY OVARIAN FAILURE]Onset: 40-41-9311AkxowniRqzdn bone disease and musculoskeletal deformities (1 source)Other specified disorders of bone density and structure, left thigh; Translations: [OTH D/O BONE DEN STRUCT LT THIGH]Onset: 03-97-0898ZdvtkwjrQfpgt screening for suspected conditions (not mental disorders or infectious disease) (1 source)Encounter for screening mammogram for malignant neoplasm of breast; Translations: [ENC SCR MAMMO MALIG NEOPLASM BREAST]Onset: 66-10-6648Vwcxzswd Spondylosis; intervertebral disc disorders; other back problems (1 source)Other intervertebral disc degeneration, lumbar region; Translations: [OTH IV DISC DEGEN LUMBAR REGION]Onset: 75-03-5244NjnoiewWwgbjnmrz-related disorders (2 sources)Nicotine dependence, cigarettes, uncomplicated; Translations: [NICOTINE DEPENDENCE, CIGARETTES, UNCOMPLICATED]Onset: 54-18-3558GsdqpizIcdocvm disorders (4 sources)Hypothyroidism, unspecified; Translations: [HYPOTHYROIDISM UNSPECIFIED]Onset: 64-88-8725UqzjwxcPiabgpbdjzxt (2 sources)Unknown / UNK(Unknown)Onset: 74-07-5035Hwdnkmlloeqj (1 source)LOW BACK PAIN, UNSPECIFIED; Translations: [LOW BACK PAIN, UNSPECIFIED] Onset: 08-19-2022 Past or Other Problems Problem ClassificationProblemDateDocumented DateEpisodic/ChronicNonspecific chest pain (2 sources)Chest pain, unspecified; Translations: [CHEST PAIN, UNSPECIFIED] Onset: 37-31-4403Zblutofx Results Test NameValueInterpretationReference RangeFacilcleveland clinic mentor hospitalCNCOon 59-19-9370ZEFABmrzeb TextNormalCCleveland Clinic Avon Hospitalon 50-39-2260BMKDKfigivgwm (CARDMN) LOU FINLEY ([id number]) 1960 F Date Time Provider Department 06/02/23 AIDA MATOS ([facility]) CARDMN During your visit today, we recorded the following information about you: Aida Lilly 06/02/2023 1:06 PM Signed web appts: 1st call. scheduled for 06/[address] Capone. Mailed reminder. Case closed. Allergies As of Date: 06/02/2023 (Not on File) Date Reviewed: Never Reviewed Reason for Visit: Appointment [186] Problem List As Of Date: 06/02/2023 (None) Encounter Status:Closed by AIDA LILLY on 06/02/23NormalCGalion Hospital T3on 46-17-1375VVQS T33.53 pg/mlLNormal2.18-3.98The [facility] HospitalComment on above:Performed By: #### T4, FT3, TSH #### [facility] [address] [place] [address] Dr. Guevara AbrahamT4on 80-86-9277J3 [Mass/Vol]10.20 ug/dLNormal4.80-13.90The [facility] HospitalComment on above:Performed By: #### T4, FT3, TSH #### [facility] [address] [place] [address] Dr. Guevara RussoHojohn 54-13-7481IHG7.509 uIU/mLCritically high0.358-3.740The [facility] HospitalComment on above:Performed By: #### T4, FT3, TSH #### [facility] [address] [place] [address] Dr. Guevara AbrahamOCC BLD IMMUNO SCREENon 09-09-2440WVTACN BLOODNegativeNormal NEGATIVEThe [facility] on above:Performed By: #### ANAIFA #### [facility] [address] [place] [address] Dr. Guevara Mandel by IFAon 05-82-9306Nkfotyhvleh Antibodies, IFANegativeNormal The [facility] HospitalComaspirus [facility] on above:Result Comment: Negative <1:80 Borderline 1:80 Positive >1:80 ICAP nomenclature: AC-0 For more information about Hep-2 cell patterns use ANApatterns.org, the official website for the International Consensus on Antinuclear Antibody (CODI) Patterns (ICAP).Performed By: #### ANAIFA #### [facility] [address] [place] [address] Dr. Guevara AbrahamANTISTREPTOLYSIN O AB (ASO)on 54-86-3960Qjdhujqhermnwsvf O Ab 248.1 IU/mLCritically high0.0-200.0The [facility] HospitalComment on above: Performed By: #### ASOAB #### [facility] [address] [place] [address] Dr. Guevara Hernandez-REACTIVE PROTEINS (HS)on 75-90-9164K-Reactive Protein, Cardiac 0.32 mg/LNormal0.00-3.00The [facility] HospitalComment on above:Result Comment: Relative Risk for Future Cardiovascular Event Low <1.00 Average 1.00 - 3.00 High >3.00Performed By: #### CRPHS #### [facility] [address] [place] [address] Dr. Guevara AbrahamINSULINon 90-78-8229Doxcoyq00.3 uIU/mLNormal2.6-24.9The [facility] HospitalComment on above:Performed By: #### INSULIN ####[facility] [address] [place], [place] [address]DrCain AbrahamRHEUMATOID FACTORon 58-52-8107KY Latex Turbid.<10.0Normal<14.0The [facility] HospitalComment on above:Performed By: #### RF #### [facility] [address] [place] [address] Dr. Guevara Dorantes AUTO DIFFon 94-79-6084JAUK #0.1 103/ulNormal0.0-0.1The [facility] on above:Performed By: #### CBC ####[facility] [address] [place], [place] [address]Dr.Guevara AbrahamBasophils/100 WBC (Bld)0.6 %Normal0.2-2.0The [facility] HospitalComment on above:Performed By: #### CBC ####[facility] Labcrthiug[address] [place], [place] [address]DrLillian ChangEO #0.2 103/ulNormal0.0-0.7The [facility] on above:Performed By: #### CBC ####[facility] Lifeadvqec[address] [place], [place] [address]DrLillian ChangEosinophils/100 WBC (Bld)1.9 %Normal 0.9-7.0The [facility] HospitalComment on above:Performed By: #### CBC ####[facility] [address] [place], [place] [address]Dr.Guevara Jarad Erythrocyte distribution width (RBC) [Ratio]12.8 %Rsqjxz52.0-15.0The [facility] HospitalComment on above:Performed By: #### CBC ####[facility] [address] [place], [place] [address]Dr.Zabrinameño JaradHematocrit (Bld) [Volume fraction]43.1 %Kalnom12.0-48.0The [facility] HospitalComment on above:Performed By: #### CBC ####[facility] [address] [place], [place] [address]Dr.Guevara AbrahamHemoglobin (Bld) [Mass/Vol]14.5 g/dL Qoluur19.0-16.0The [facility] HospitalComment on above:Performed By: #### CBC ####[facility] Emrtgfmanx[address] [place], [place] [address]Dr. Guevara AbrahamIG #0.03 10e3/ulNormal0.00-0.03The [facility] HospitalComment on above: Performed By: #### CBC ####[facility] Yvqfcutfmf[address] [place], [place] [address]Dr.Guevara AbrahamIG %0.3 %Normal0.0-0.5The [facility] HospitalComment on above:Performed By: #### CBC ####[facility] [address] [place], [place] [address]Dr.Guevara AbrahamLYMPH #3.3 103/ulNormal1.2-3.8The [facility] HospitalComment on above:Performed By: #### CBC ####[facility] Ilyuraefns[address] [place], [place] [address]Dr. Guevara AbrahamLymphocytes/100 WBC (Bld)34.2 %Bsknbd31.5-60.0The [facility] Comment on above:Performed By: #### CBC ####[facility] Ijitqbzbyi[address] [place], [place] [address]Dr.Guevara AbrahamMANUAL DIFF REQNONormalThe [facility] HospitalComment on above:Performed By: #### CBC ####[facility] Gcfzhqgxsl[address] [place], [place] [address]Dr.Guevara AbrahamOUR L[facility] (RBC) [Entitic mass]31.4 hrZrbcho08.7-34.0The [facility] HospitalComment on above: Performed By: #### CBC ####[facility] Yytnuhkhoc[address] [place], [place] [address]Dr.Guevara AbrahamHERKIMER [facility] (RBC) [Mass/Vol]33.6 g/dLNormal 29.9-35.2The [facility] HospitalComment on above:Performed By: #### CBC ####[facility] [address] [place], [place] [address]Dr. Guevara AbrahamV (RBC) [Entitic vol]93.3 jOWbvicg63.0-99.0The [facility] Comment on above:Performed By: #### CBC ####[facility] [address] [place], [place] [address]Dr.Guevara AbrahamMONO #0.7 103/ulNormal0.3-0.8 The [facility] HospitalComment on above:Performed By: #### CBC ####[facility] [address]ctrzy[address] [place], [place] [address]Dr.Guevara Abraham Monocytes/100 WBC (Bld)7.3 %Normal1.7-12.0The [facility] HospitalComment on above: Performed By: #### CBC ####[facility] H[address]ikiujysj[address] [place], [place] [address]Dr.Guevara AbrahamNEUT #5.3 103/ulNormal1.4-6.5The [facility] HospitalComment on above:Performed By: #### CBC ####[facility] [address] [place], [place] [address]Dr.Guevara AbrahamNeutrophils/100 WBC (Bld)55.7 %Xvdzpa05.0-75.0The [facility] HospitalComment on above:Performed By: #### CBC ####[facility] [address] [place] [address]Dr.Guevara AbrahamPlatelet mean volume (Bld) [Entitic vol]11.5 fLNormal9.5-13.5 The [facility] HospitalComment on above:Performed By: #### CBC ####[facility] [address] [place] [address]Dr.Guevara AbrahamPLT211 103/jdHrpvwe809-880Cxy The [facility] HospitalComment on above:Performed By: #### CBC ####[facility] [address]zzemgc[address] [place], [place] [address]Dr. Guevara AbrahamRBC4.62 106/ulNormal4.20-5.40The [facility] HospitalComment on above: Performed By: #### CBC ####[facility] [address]armsxjia[address] [place], [place] [address]Dr.Guevara ChangWBC9.5 103/ulNormal4.0-11.0The [facility] HospitalComment on above:Performed By: #### CBC ####[facility] [address] [place], [place] [address]Dr.Guevara AbrahamCRPon 83-80-0671GUY [Mass/Vol]mg/LNormal<=1.0The [facility] on above: Performed By: #### CRP, T7, CMP, URIC, LIPID, TSH ####[facility] [address] [place] [address]Dr. Guevara AbrahamCT LUNG CANCER SCREENINGon 85-08-7013GK LUNG CANCER SCREENINGEXAMINATION: CT LUNG CANCER SCREENING HISTORY: Tobacco dependence [...] Electronically authenticated by: CORINA CERVANTES Date: 2022-08-15 09:25[facility] HospitalFREE THYROXINE INDEX T7on 80-86-5330MTK5.52Hquonz4.30-4.50The [facility] Centerment on above:Performed By: #### CRP, T7, CMP, URIC, LIPID, TSH ####[facility] [address] [place] [address]Dr. Guevara DcylwM1L20.0 %Rwynwo05.0-39.0The [facility] HospitalComment on above: Performed By: #### CRP, T7, CMP, URIC, LIPID, TSH ####[facility] [address] [place] [address]Dr. Guevara ChangT4 [Mass/Vol] 9.10 ug/dLNormal4.80-13.90The [facility] on above:Performed By: #### CRP, T7, CMP, URIC, LIPID, TSH ####[facility] [address] [place] [address]Dr. Guevara ChangGLYCOHEMOGLOBIN A1Con 08-15-2022 ADA RECOMMENDATIONSEE BELOWClinton Memorial HospitalComment on above:Result Comment: ADA RECOMMENDED LIMIT 4.0 - 6.0 ADA THERAPEUTIC TARGET < 7.0 ACTION SUGGESTED > 7.0Performed By: #### A1C ####[facility] [address] [place] [address]Dr.Guevara ChangGlucose [Mass/Vol]120 mg/dL NormalThe [facility] on above:Performed By: #### A1C ####[facility] [address] [place] [address]Dr.Guevara BtsjhPqL3y (Bld) [Mass fraction]5.8 %Normal4.5-6.2The [facility] HospitalComment on above: Performed By: #### A1C ####[facility] [address] [place] [address]Dr.Guevara AbrahamIROGricel 99-12-4178Ubbu [Mass/Vol]124.0 ug/rLJdjlfm24.0-170.0[facility] HospitalComment on above:Performed By: #### IRON #### [facility] [address] [place] [address] [address] Guevara AbrahamLIPID PROFILEon 63-04-7563WVKA-HDL RATIO NORMSEE [facility] on above:Result Comment: 3.3 - 4.4 LOW RISK 4.4 - 7.1 AVERAGE RISK 7.1 - 11.0 MODERATE RISK >11.0 HIGH RISKPerformed By: #### CRP, T7, CMP, URIC, LIPID, TSH ####[facility] [address] [place] [address]Dr. Guevara AbrahamCholesterol [Mass/Vol]132 mg/dLNormal<=200 The [facility] HospitalComaspirus [facility] river [facility] on above:Performed By: #### CRP, T7, CMP, URIC, LIPID, TSH ####[facility] [address] [place] [address]Dr. Guevara ChangCholesterol in HDL [Mass/Vol]44 mg/wXClcfpz11-69SahGenesis Hospital on above:Performed By: #### CRP, T7, CMP, URIC, LIPID, TSH ####[facility] [address] [place] [address]Dr. Guevara AbrahamCholesterol in LDL [Mass/Vol]70.8 mg/dLClinton Memorial Hospital Comment on above:Performed By: #### CRP, T7, CMP, URIC, LIPID, TSH ####[facility] [address] [place], [place] [address]Dr. Guevara Abraham Cholesterol.total/Cholesterol in HDL [Mass ratio]3.0 {ratio}NormalGenesis Hospital on above:Performed By: #### CRP, T7, CMP, URIC, LIPID, TSH ####[facility] [address] [place] [address]Dr. Zabrinalan ChangHDL NORMAL> or = 60 mg/dl - LOW CARDIOVASCULAR RISK <40 mg/dl - HIGH CARDIOVASCULAR RISKClinton Memorial HospitalComment on above:Performed By: #### CRP, T7, CMP, URIC, LIPID, TSH ####[facility] [address] [place] [address]Dr. Yilan ChangLDL CALC NORMALSEE BELOWNoAshtabula County Medical CenterComment on above:Result Comment: <100 mg/dl OPTIMAL 100 - 129 mg/dl NEAR OR ABOVE OPTIMAL 130 - 159 mg/dl BORDERLINE HIGH 160 - 189 mg/dl HIGH >190 mg/dl VERY HIGHPerformed By: #### CRP, T7, CMP, URIC, LIPID, TSH ####[facility] [address] [place], [place] [address]Dr. Zabrinalan ChangTriglyceride [Mass/Vol]86 mg/dLNormal<=150[facility] Comment on above:Performed By: #### CRP, T7, CMP, URIC, LIPID, TSH ####[facility] [address] [place], [place] [address]Dr. Yilan ChangVLDL CALC17.2 mg/dLNoAshtabula County Medical CenterComment on above:Performed By: #### CRP, T7, CMP, URIC, LIPID, TSH ####[facility] [address] [place], [place] [address]Dr. Guevara ChangMG MAMM SCREEN 3D GRICEL CADon 08-15-2022 MG MAMM SCREEN 3D GRICEL CADPatient: LOU FINLEYCain Exam Date: 08/15/2022 : 1960 Gender:F Ordering : DR RYAN AREVALO . Admission #: [id number] Family : Order #: [id number] CLICK HERE TO VIEW EXAM RADIOLOGY REPORT PROCEDURE: MAMMOGRAM SCREENING 3D BILATERAL CAD COMPARISON: MG MAMM GRICEL SCRN W CAD DIG, 07/04/2015. INDICATIONS: Screening mammography Calculator Name NCI Breast Cancer Risk Assessment Tool 5 Year Breast Cancer Risk Not Reported. Lifetime Breast Cancer Risk Not Reported. Personal Breast Cancer No Personal Ovarian Cancer No Treatments None Family Cancers None LOCATION: [facility] BREAST COMPOSITION: Extremely dense, which lowers [...] by: Meera Hodge MD on 08/15/2022 at 09:49[facility] HospitalPROF 14(COMP METB)on 50-85-2607Xclwuon [Mass/Vol]3.9 g/dLNormal3.4-5.0The [facility] HospitalComment on above:Performed By: #### CRP, T7, CMP, URIC, LIPID, TSH ####[facility] [address] [place], [place] [address]Dr. Yilan ChangAlbumin/Globulin [Mass ratio]1.2 {ratio}NormalThe [facility] Comment on above:Performed By: #### CRP, T7, CMP, URIC, LIPID, TSH ####[facility] [address] [place], [place] [address]Dr. Yilan ChangALP [Catalytic activity/Vol]66 U/MRynxdg52-949Odg [facility] HospitalComment on above: Performed By: #### CRP, T7, CMP, URIC, LIPID, TSH ####[facility] [address]risu[address] [place], [place] [address]Dr. Yilan ChangALT [Catalytic activity/Vol]22 U/VLuqukk45-74Kwx [facility] HospitalComment on above:Performed By: #### CRP, T7, CMP, URIC, LIPID, TSH ####[facility] [address] [place], [place] [address]Dr. Yilan ChangAnion gap [Moles/Vol]12.9 mmol/LNormalSalem City HospitalComment on above:Performed By: #### CRP, T7, CMP, URIC, LIPID, TSH ####[facility] [address] [place]etB[place], [place] [address]Fw. Yilan ChangAST [Catalytic activity/Vol]14 U/L Critically xpa21-51Hhd [facility] HospitalComment on above:Performed By: #### CRP, T7, CMP, URIC, LIPID, TSH ####[facility] [address] [place] [address]Dr. Yilan ChangBilirubin [Mass/Vol]0.4 mg/dLNormal0.2-1.0 The [facility] HospitalComment on above:Performed By: #### CRP, T7, CMP, URIC, LIPID, TSH ####[facility] [address] [place], [place] [address]Dr. Yilan ChangCalcium [Mass/Vol]8.8 mg/dLNormal8.5-10.1The [facility] HospitalComment on above:Performed By: #### CRP, T7, CMP, URIC, LIPID, TSH ####[facility] [address] [place], [place] [address]Dr. Yilan ChangChloride [Moles/Vol]107 mmol/LGhyurb10-928Zbm [facility] Comment on above:Performed By: #### CRP, T7, CMP, URIC, LIPID, TSH ####[facility] [address] [place], [place] [address]Dr. Yilan ChangCO2 [Moles/Vol]26.8 mmol/TTflsxr97.0-32.0The The Jewish HospitalComment on above: Performed By: #### CRP, T7, CMP, URIC, LIPID, TSH ####[facility] [address] [place], [place] [address]Dr. Yilan ChangCreatinine [Mass/Vol]0.85 mg/dLNormal0.55-1.02The [facility] Centerment on above: Performed By: #### CRP, T7, CMP, URIC, LIPID, TSH ####[facility] [address] [place], [place] [address]Dr. Yilan ChangEGFR-AF NIGERIAN>60Normal>=60The The Jewish HospitalComment on above:Performed By: #### CRP, T7, CMP, URIC, LIPID, TSH ####[facility] [address] [place] [address]Dr. Yilan ChangEGFR-NON AF NIGERIAN>60Normal>=60The [facility] Centerment on above:Performed By: #### CRP, T7, CMP, URIC, LIPID, TSH ####[facility] [address] [place] [address]Dr. Yilan ChangGlobulin (S) [Mass/Vol]3.2 g/dLNormalThe [facility] HospitalComaspirus [facility] on above:Performed By: #### CRP, T7, CMP, URIC, LIPID, TSH ####[facility] [address] [place] [address]Dr. Yilan ChangGlucose [Mass/Vol]96 mg/hSDuapgh23-256Uha [facility] Centerment on above:Performed By: #### CRP, T7, CMP, URIC, LIPID, TSH ####[facility] [address] [place], [place] [address]Dr. Yilan ChangPotassium [Moles/Vol]3.7 mmol/LNormal3.5-5.1The The Jewish HospitalComment on above:Performed By: #### CRP, T7, CMP, URIC, LIPID, TSH ####[facility] [address] [place] [address]Dr. Yilan ChangProtein [Mass/Vol]7.1 g/dLNormal6.4-8.2The [facility] Centerment on above:Performed By: #### CRP, T7, CMP, URIC, LIPID, TSH ####[facility] [address] [place], [place] [address]Dr. Yilan ChangSodium [Moles/Vol]143 mmol/JOmhtxy879-062Jel [facility] Centerment on above:Performed By: #### CRP, T7, CMP, URIC, LIPID, TSH ####[facility] [address] [place], [place] [address]Dr. Yilan ChangUrea nitrogen [Mass/Vol]13.0 mg/dLNormal7.0-18.0The [facility] Comment on above:Performed By: #### CRP, T7, CMP, URIC, LIPID, TSH ####[facility] [address] [place] [id number]. Guevara AbrahamUrea nitrogen/Creatinine [Mass ratio]15.3 mg/mgNoAshtabula County Medical CenterComment on above:Performed By: #### CRP, T7, CMP, URIC, LIPID, TSH ####[facility] [address] [place] [id number]. Guevara AbrahamTSHon [id number] uIU/mLCritically high0.358-3.740[facility] City HospitalComment on above:Performed By: #### CRP, T7, CMP, URIC, LIPID, TSH ####[facility] [address] [place] [address]Dr. Guevara AbrahamURIC ACID SERUMon [id number] [Mass/Vol]3.1 mg/dLNormal2.6-6.0[facility] Comment on above:Performed By: #### CRP, T7, CMP, URIC, LIPID, TSH ####[facility] [address] [place] [address]Dr. Guevara AbrahamXR DEXA BONE DENSITYon [id number] DEXA BONE DENSITYEXAMINATION: XR DEXA BONE DENSITY, 08/15/2022 8:14 AM [...] Electronically authenticated by: MEERA HODGE Date: 2022-08-15 09:00[facility] HospitalXR L[facility]INE MIN 4 VIEWSon [id number] LSPINE MIN 4 VIEWS EXAMINATION: XR LSPINE [...] Electronically authenticated by: CORINA CERVANTES Date: 2022-08-15 09:04[facility] head/brain wo conon [id number] head/brain wo [facility] [address] [place] [address] MRI Report Signed Patient: Lou Finley MR#: [id number] : 1960 Acct:[id number] Age/Sex: 60 / F ADM Date: 07/19/21 Loc: [facility] Room: Type: [facility] Attending Dr: Himanshu Acosta DO Ordering [...] Jack Giles M.D.07/19/2021 1:11 PM Dictation Location: [place] [address] Transcribed By: DUKE 07/19/21 1311 Dictated By: Jack Giles II, MD 07/19/21 1302 Signed By: 07/19/21 1311NoGreen Cross HospitalPhysician Referralon [id number] [id number]:127 [facility] HospitalBasic Metabolic Profon 10-26-2018(cont.)[facility] City HospitalComment on above:Result Comment: Average GFR for 50-59 years old: 93 mL/min/1.73sq m Chronic Kidney Disease: <60 mL/min/1.73sq m Kidney failure: <15 mL/min/1.73sq m eGFR calculated using average adult body mass. Additional eGFR calculator available at: http://www.[employer].Countercepts/multiple_crcl_2012.htmPerformed By: #### CDP, BMP, CRP, PRCAL #### [employer] [address] [place], [place] [id number] Machine Filler: Sabas Lamb MDAnion gap [Moles/Vol]9 mmol/LNormal9-17[facility] HospitalComment on above:Performed By: #### CDP, BMP, CRP, PRCAL #### [employer] [address] [place], [place] [address] Machine Filler: Sabas Lamb MDCalcium [Mass/Vol]8.3 mg/dLLow8.6-10.4[facility] HospitalComment on above:Performed By: #### CDP, BMP, CRP, PRCAL #### [employer] [address] [place] [address] Machine Filler: GIOVANNY Burthloride [Moles/Vol]100 mmol/XGpsugb60-650VowliBethesda North HospitalComment on above:Performed By: #### CDP, BMP, CRP, PRCAL #### [facility] [address] [place] [address] Machine Filler: Sabas Lamb MDCO2 [Moles/Vol]26 mmol/VXpqgdz31-93VijpyBethesda North HospitalComment on above:Performed By: #### CDP, BMP, CRP, PRCAL #### [facility] [address] [place] [address] Machine Filler: GIOVANNY Burtreatinine [Mass/Vol]0.26 mg/dLLow0.50-0.90[facility] HospitalComment on above:Performed By: #### CDP, BMP, CRP, PRCAL #### [facility] [address] [place] [address] Machine Filler: Sabas Lamb MDGFR, Amer>60Normal>60[facility] HospitalComment on above:Performed By: #### CDP, BMP, CRP, PRCAL #### [facility] [address] [place] [address] Machine Filler: Sabas Lamb MDGFR,non Amer>60Normal>60[facility] HospitalComment on above:Performed By: #### CDP, BMP, CRP, PRCAL #### [facility] [address] [place] [address] Machine Filler: Sabas Lamb MDGlucose [Mass/Vol]112 mg/jYWuet07-13CixnjLos Gatos campusComment on above:Performed By: #### CDP, BMP, CRP, PRCAL #### [facility] [address] [place] [address] Machine Filler: HILDA Burtotassium [Moles/Vol]3.1 mmol/LLow3.7-5.3[facility] HospitalComment on above:Performed By: #### CDP, BMP, CRP, PRCAL #### [facility] [address] [place] [address] Machine Filler: LAURA Burtodium [Moles/Vol]135 mmol/TWuapst401-568TzxqlBethesda North HospitalComment on above:Performed By: #### CDP, BMP, CRP, PRCAL #### [facility] [address] [place] [address] Machine Filler: Patel Burt nitrogen [Mass/Vol]6 mg/dLNormal6-20[facility] HospitalComment on above:Performed By: #### CDP, BMP, CRP, PRCAL #### [facility] [address] [place] [address] Machine Filler: MOE Burt/ANEUDY Lala REPORTEDNormal9-20[facility] HospitalComment on above:Performed By: #### CDP, BMP, CRP, PRCAL #### [facility] [address] [place] [address] Machine Filler: LAURA Burttaging:NOT REPORTEDNormalBethesda North HospitalComment on above:Performed By: #### CDP, BMP, CRP, PRCAL #### [facility] [address] [place] [address] Machine Filler: GENE Burt with Diffon [id number]. Basophil<0.03 Normal0.00-0.20[facility] HospitalComment on above:Performed By: #### CDP, BMP, CRP, PRCAL #### [facility] [address] [place] [address] Machine Filler: Bridgette Burt.Imm.Granulocyte0.03 k/uLNormal0.00-0.30[facility] HospitalComment on above:Performed By: #### CDP, BMP, CRP, PRCAL #### [address] [address] Machine Filler: Bridgette Burt.Neutrophil (Seg)7.04 k/uLNormal1.50-8.10 [facility] HospitalComment on above:Performed By: #### CDP, BMP, CRP, PRCAL #### [facility] [employer] [address] [place] [address] Machine Filler: Sabas Lamb MDBasophils/100 WBC (Bld)0 %Normal0-2MSt. Joseph HospitalComment on above:Performed By: #### CDP, BMP, CRP, PRCAL #### [address] [address] Machine Filler: Sabas Lamb MDEosinophils (Bld) [#/Vol]0.08 10*3/uLNormal 0.00-0.44[facility] HospitalComment on above:Performed By: #### CDP, BMP, CRP, PRCAL #### [facility] [employer] [address] [place] [address] Machine Filler: STACEY Burtosinophils/100 WBC (Bld)1 %Normal1-4[facility] HospitalComment on above:Performed By: #### CDP, BMP, CRP, PRCAL #### [facility] [employer] [address] [place] [address] Machine Filler: Sabas Lamb MDErythrocyte distribution width (RBC) [Ratio]12.0 %Fgiinx42.8-14.4[facility] HospitalComment on above:Performed By: #### CDP, BMP, CRP, PRCAL #### [facility] [employer] [address] [place] [address] Machine Filler: Sabas Lamb MDHematocrit (Bld) [Volume fraction]32.3 %Low 36.3-47.1MSt. Joseph HospitalComment on above:Performed By: #### CDP, BMP, CRP, PRCAL #### [facility] [employer] [address] [place] [address] Machine Filler: Sabas Lamb MDHemoglobin (Bld) [Mass/Vol]10.5 g/dLLow11.9-15.1 [facility] HospitalComment on above:Performed By: #### CDP, BMP, CRP, PRCAL #### [place] [address] Machine Filler: Sabas Lamb MDImmature granulocytes (Bld) [#/Vol]0 %Normal0 [facility] HospitalComment on above:Performed By: #### CDP, BMP, CRP, PRCAL #### [place] [address] Machine Filler: Sabas Lamb MDLymphocytes (Bld) [#/Vol]1.45 10*3/uLNormal 1.10-3.70[facility] HospitalComment on above:Performed By: #### CDP, BMP, CRP, PRCAL #### [facility] [employer] [address] [place] [address] Machine Filler: Aydin Burtmphocytes/100 WBC (Bld)16 %Sbl01-71ZkzoiBethesda North HospitalComment on above:Performed By: #### CDP, BMP, CRP, PRCAL #### [facility] [employer] [address] [place] [address] Machine Filler: SILVIA BurtCH (RBC) [Entitic mass]31.3 ysDlpotc41.2-33.5 [facility] HospitalComment on above:Performed By: #### CDP, BMP, CRP, PRCAL #### [facility] [employer] [address] [place] [address] Machine Filler: SILVIA BurtCHC (RBC) [Mass/Vol]32.5 g/oHZbakca68.4-34.8 [facility] HospitalComment on above:Performed By: #### CDP, BMP, CRP, PRCAL #### [facility] [employer] [address] [place] [address] Machine Filler: SILVIA BurtCV (RBC) [Entitic vol]96.1 xVKljgpq60.6-102.9 [facility] HospitalComment on above:Performed By: #### CDP, BMP, CRP, PRCAL #### [facility] [employer] [address] [place] [address] Machine Filler: SILVIA Burtonocytes (Bld) [#/Vol]0.54 10*3/uLNormal 0.10-1.20[facility] HospitalComment on above:Performed By: #### CDP, BMP, CRP, PRCAL #### [facility] [employer] [address] [place] [address] 119[address] Machine Filler: SILVIA Burtonocytes/100 WBC (Bld)6 %Normal3-12[facility] HospitalComment on above:Performed By: #### CDP, BMP, CRP, PRCAL #### [facility] [employer] [address] [place] [address] Machine Filler: Sabas Lamb MDNeutrophil (Seg)77 %From57-20CdzqdBethesda North HospitalComment on above:Performed By: #### CDP, BMP, CRP, PRCAL #### [facility] [employer] [address] [place] [address] Machine Filler: Sabas Lamb MDNRBC Automated0.0 per 100 WBCNormal0.0[facility] HospitalComment on above:Performed By: #### CDP, BMP, CRP, PRCAL #### [facility] [employer] [address] [place] [address] 28[address] Machine Filler: Jeremi Burt mean volume (Bld) [Entitic vol]11.7 fL Normal8.1-13.5[facility] HospitalComment on above:Performed By: #### CDP, BMP, CRP, PRCAL #### [address] [address] Machine Filler: Alejandro Burt (Bld) [#/Vol]261 10*3/uDLvqhak909-843 [facility] HospitalComment on above:Performed By: #### CDP, BMP, CRP, PRCAL #### [address] [address] Machine Filler: CAMILLE BurtBC (Bld) [#/Vol]3.36 10*6/uLLow3.95-5.11[facility] HospitalComment on above:Performed By: #### CDP, BMP, CRP, PRCAL #### [address] [address] Machine Filler: ALICIA Burt (Bld) [#/Vol]9.2 10*3/uLNormal3.5-11.3MSt. Joseph HospitalComment on above:Performed By: #### CDP, BMP, CRP, PRCAL #### [facility] [employer] [address] [place] [address] Machine Filler: Claudio Burt PerformedNOT REPORTEDNoSheltering Arms HospitalComment on above:Performed By: #### CDP, BMP, CRP, PRCAL #### [facility] [employer] [address] [place] [address] Machine Filler: Alejandro Burt (Bld) [#/Vol]NOT REPORTEDNoSheltering Arms HospitalComment on above:Performed By: #### CDP, BMP, CRP, PRCAL #### [employer] [address] [place] [address] Machine Filler: KATY Burt morphology finding Nom (Bld)NOT REPORTED NormalBethesda North HospitalComment on above:Performed By: #### CDP, BMP, CRP, PRCAL #### [employer] [address] [place] [address] 76892 Machine Filler: ALICIA Burt MorphologyNOT REPORTEDNormalBethesda North HospitalComment on above:Performed By: #### CDP, BMP, CRP, PRCAL #### [employer] [address] [place] [address] 8[address] Machine Filler: Carmen Burt Metabolic Profon 10-25-2018(cont.)Normal [facility] HospitalComment on above:Result Comment: Average GFR for 50-59 years old: 93 mL/min/1.73sq m Chronic Kidney Disease: <60 mL/min/1.73sq m Kidney failure: <15 mL/min/1.73sq m eGFR calculated using average adult body mass. Additional eGFR calculator available at: http://www.[employer].Countercepts/multiple_crcl_2012.htmPerformed By: #### CDP, BMP, CRP, PRCAL #### [employer] [address] [place] [address] Machine Filler: Sabas Lamb MDAnion gap [Moles/Vol]9 mmol/LNormal9-17[facility] HospitalComment on above:Performed By: #### CDP, BMP, CRP, PRCAL #### [employer] [address] [place] [address] 78[address] Machine Filler: Sabas Lamb MDCalcium [Mass/Vol]8.5 mg/dLLow8.6-10.4[facility] HospitalComment on above:Performed By: #### CDP, BMP, CRP, PRCAL #### [employer] [address] [place] [address] 33271 Machine Filler: GIOVANNY Burthloride [Moles/Vol]100 mmol/OHwjazd81-266HcppqBethesda North HospitalComment on above:Performed By: #### CDP, BMP, CRP, PRCAL #### [facility] [address] [place] [address]58 Machine Filler: Sabas Lamb MDCO2 [Moles/Vol]28 mmol/QQwhagj91-03WfvgiBethesda North HospitalComment on above:Performed By: #### CDP, BMP, CRP, PRCAL #### [facility] [address] [place] [address] 02698 Machine Filler: GIOVANNY Burtreatinine [Mass/Vol]0.31 mg/dLLow0.50-0.90[facility] HospitalComment on above:Performed By: #### CDP, BMP, CRP, PRCAL #### [facility] [address] [place] [address] Machine Filler: Sabas Lamb MDGFR, Amer>60Normal>60[facility] HospitalComment on above:Performed By: #### CDP, BMP, CRP, PRCAL #### [facility] [address] [place] [address] 24216 Machine Filler: Sabas Lamb MDGFR,non Amer>60Normal>60[facility] HospitalComment on above:Performed By: #### CDP, BMP, CRP, PRCAL #### [facility] [address] [place] [address] 5[address]24 Machine Filler: Sabas Lamb MDGlucose [Mass/Vol]111 mg/fBJzbq92-47GyyzbLos Gatos campusComment on above:Performed By: #### CDP, BMP, CRP, PRCAL #### [facility] [address] [place] [address] Machine Filler: HILDA Burtotassium [Moles/Vol]3.4 mmol/LLow3.7-5.3[facility] HospitalComment on above:Performed By: #### CDP, BMP, CRP, PRCAL #### [facility] [address] [place] [address]8815 Machine Filler: LAURA Burtodium [Moles/Vol]137 mmol/AJdxjxn247-069HuktgBethesda North HospitalComment on above:Performed By: #### CDP, BMP, CRP, PRCAL #### [facility] [address] [place] [address] Machine Filler: Patel Burt nitrogen [Mass/Vol]9 mg/dLNormal6-20[facility] HospitalComment on above:Performed By: #### CDP, BMP, CRP, PRCAL #### [facility] [address] [place] [address] Machine Filler: MOE Burt/ANEUDY Lala REPORTEDNormal9-20[facility] HospitalComment on above:Performed By: #### CDP, BMP, CRP, PRCAL #### [facility] [address] [place] [address] 71383 Machine Filler: LAURA Burttaging:NOT REPORTEDNormalBethesda North HospitalComment on above:Performed By: #### CDP, BMP, CRP, PRCAL #### [facility] [address] [place] [address] Machine Filler: GENE Burt with Diffon [id number]. Basophil0.03 k/uL Normal0.00-0.20[facility] HospitalComment on above:Performed By: #### CDP, BMP, CRP, PRCAL #### [facility] [address] [place] [address] 24057 Machine Filler: Bridgette Burt.Imm.Granulocyte0.05 k/uLNormal0.00-0.30[facility] HospitalComment on above:Performed By: #### CDP, BMP, CRP, PRCAL #### [facility] [employer] [address] [place] [address]5810 Machine Filler: MDAbs. CarmelNeutrophil (Seg)10.20 k/uLHigh1.50-8.10[facility] HospitalComment on above:Performed By: #### CDP, BMP, CRP, PRCAL #### [facility] [employer] [address] [place] [address] 96907 Machine Filler: Sabas Lamb MDBasophils/100 WBC (Bld)0 %Normal0-2MSt. Joseph HospitalComment on above:Performed By: #### CDP, BMP, CRP, PRCAL #### [address] [address] Machine Filler: Sabas Lamb MDEosinophils (Bld) [#/Vol]0.04 10*3/uLNormal 0.00-0.44[facility] HospitalComment on above:Performed By: #### CDP, BMP, CRP, PRCAL #### [facility] [employer] [address] [place] [address] 13666 Machine Filler: STACEY Burtosinophils/100 WBC (Bld)0 %Low1-4[facility] HospitalComment on above:Performed By: #### CDP, BMP, CRP, PRCAL #### [facility] [employer] [address] [place] [address]013 Machine Filler: Sabas Lamb MDErythrocyte distribution width (RBC) [Ratio]11.9 %Vjcezh14.8-14.4[facility] HospitalComment on above:Performed By: #### CDP, BMP, CRP, PRCAL #### [facility] [employer] [address] [place] [address] 27856 Machine Filler: Sabas Lamb MDHematocrit (Bld) [Volume fraction]31.5 %Low 36.3-47.1MSt. Joseph HospitalComment on above:Performed By: #### CDP, BMP, CRP, PRCAL #### [facility] [employer] [address] [place] [address] Machine Filler: Sabas Lamb MDHemoglobin (Bld) [Mass/Vol]10.4 g/dLLow11.9-15.1 [facility] HospitalComment on above:Performed By: #### CDP, BMP, CRP, PRCAL #### [facility] [employer] [address] [place] [address] Machine Filler: Sabas Lamb MDImmature granulocytes (Bld) [#/Vol]0 %Normal0 [facility] HospitalComment on above:Performed By: #### CDP, BMP, CRP, PRCAL #### [facility] [employer] [address] [place] [address] Machine Filler: Sabas Lamb MDLymphocytes (Bld) [#/Vol]0.96 10*3/uLLow 1.10-3.70[facility] HospitalComment on above:Performed By: #### CDP, BMP, CRP, PRCAL #### [facility] [employer] [address] [place] [address] 82077 Machine Filler: Adyin Burtmphocytes/100 WBC (Bld)8 %Mzx00-20QbfbdBethesda North HospitalComment on above:Performed By: #### CDP, BMP, CRP, PRCAL #### [facility] [employer] [address] [place] [address] Machine Filler: SILVIA BurtCH (RBC) [Entitic mass]31.9 cdUsuwcv96.2-33.5 [facility] HospitalComment on above:Performed By: #### CDP, BMP, CRP, PRCAL #### [facility] [employer] [address] [place] [address] 88510 Machine Filler: SILVIA BurtCHC (RBC) [Mass/Vol]33.0 g/lIHmkqgr47.4-34.8 [facility] HospitalComment on above:Performed By: #### CDP, BMP, CRP, PRCAL #### [facility] [employer] [address] [place] [address] 46763 Machine Filler: SILVIA BurtCV (RBC) [Entitic vol]96.6 yCFpvjdf32.6-102.9 [facility] HospitalComment on above:Performed By: #### CDP, BMP, CRP, PRCAL #### [facility] [employer] [address] [place] [address] 09225 Machine Filler: SILVIA Burtonocytes (Bld) [#/Vol]0.75 10*3/uLNormal 0.10-1.20[facility] HospitalComment on above:Performed By: #### CDP, BMP, CRP, PRCAL #### [facility] [employer] [address] [place] [address] 19391 Machine Filler: SILVIA Burtonocytes/100 WBC (Bld)6 %Normal3-12[facility] HospitalComment on above:Performed By: #### CDP, BMP, CRP, PRCAL #### [facility] [employer] [address] [place] [address] 56166 Machine Filler: Sabas Lamb MDNeutrophil (Seg)86 %Bted41-44CcshlBethesda North HospitalComment on above:Performed By: #### CDP, BMP, CRP, PRCAL #### [facility] [employer] [address] [place] [address] 81097 Machine Filler: Sabas Lamb MDNRBC Automated0.0 per 100 WBCNormal0.0[facility] HospitalComment on above:Performed By: #### CDP, BMP, CRP, PRCAL #### [facility] [employer] [address] [place] [address] 68424 Machine Filler: Jeremi Burt mean volume (Bld) [Entitic vol]11.4 fL Normal8.1-13.5[facility] HospitalComment on above:Performed By: #### CDP, BMP, CRP, PRCAL #### [address] [address] Machine Filler: Alejandro Burt (Bld) [#/Vol]238 10*3/fSTndjxa486-344 [facility] HospitalComment on above:Performed By: #### CDP, BMP, CRP, PRCAL #### [facility] [employer] [address] [place] [address] 02367 Machine Filler: CAMILLE BurtBC (Bld) [#/Vol]3.26 10*6/uLLow3.95-5.11[facility] HospitalComment on above:Performed By: #### CDP, BMP, CRP, PRCAL #### [address] [address] Machine Filler: ALICIA Burt (Bld) [#/Vol]12.0 10*3/uLHigh3.5-11.3MSt. Joseph HospitalComment on above:Performed By: #### CDP, BMP, CRP, PRCAL #### [facility] [employer] [address] [place] [address] 06065 Machine Filler: Claudio Burt PerformedNOT REPORTEDNoalBethesda North HospitalComment on above:Performed By: #### CDP, BMP, CRP, PRCAL #### [facility] [employer] [address] [place] [address] 22299 Machine Filler: Alejandro Burt (Bld) [#/Vol]NOT REPORTEDNormalBethesda North HospitalComment on above:Performed By: #### CDP, BMP, CRP, PRCAL #### [employer] [address] [place] [address]911 Machine Filler: KATY Burt morphology finding Nom (Bld)NOT REPORTED NormalBethesda North HospitalComment on above:Performed By: #### CDP, BMP, CRP, PRCAL #### [employer] [address] [place] [address] 45675 Machine Filler: ALICIA Burt MorphologyNOT REPORTEDNormalBethesda North HospitalComment on above:Performed By: #### CDP, BMP, CRP, PRCAL #### [employer] [address] [place] [address] 05767 Machine Filler: Sabas Lamb MDLipid Profileon 09-83-8928Umwkgrhkcur [Mass/Vol] 114 mg/dLNormal<200[facility] HospitalComment on above:Result Comment: Cholesterol Guidelines: <200 Desirable 200-240 Borderline >240 UndesirablePerformed By: #### CDP, BMP, CRP, PRCAL #### [address] [address] Machine Filler: GIOVANNY Burtholesterol in HDL [Mass/Vol]37 mg/dLLow>40[facility] HospitalComment on above:Result Comment: HDL Guidelines: <40 Undesirable 40-59 Borderline >59 DesirablePerformed By: #### CDP, BMP, CRP, PRCAL #### [employer] [address] [place] [address]79 Machine Filler: GIOVANNY Burtholesterol in LDL [Mass/Vol]63 mg/dLNormal0-130 [facility] HospitalComment on above:Result Comment: LDL Guidelines: <100 Desirable 100-129 Near to/above Desirable 130-159 Borderline >159 Undesirable Direct (measured) LDL and calculated LDL are not interchangeable tests.Performed By: #### CDP, BMP, CRP, PRCAL #### [employer] [address] [place] [address]35 Machine Filler: GIOVANNY Burtholesterol.total/Cholesterol in HDL [Mass ratio]3.1 {ratio}Normal<5[facility] North HospitalComment on above: Performed By: #### CDP, BMP, CRP, PRCAL #### [facility] [address] [place] [address] 57845 Machine Filler: Sabas Lamb MDTriglyceride [Mass/Vol]71 mg/dLNormal<150Bethesda North HospitalComment on above:Result Comment: Triglyceride Guidelines: <150 Desirable 150-199 Borderline 200-499 High >499 Very high Based on AHA Guidelines for fasting triglyceride, March 2012.Performed By: #### CDP, BMP, CRP, PRCAL #### [facility] [address] [place] [address] 51888 Machine Filler: GIOVANNY Burtholesterol in VLDL [Mass/Vol]NOT REPORTEDNormal 1-30[facility] North HospitalComment on above:Performed By: #### CDP, BMP, CRP, PRCAL #### [facility] [address] [place] [address] 50276 Machine Filler: Adrian Burt Rejectionon 10-25-2018-----NOT REPORTED NormalBethesda North HospitalComment on above:Performed By: #### CDP, BMP, CRP, PRCAL #### [facility] [address] [place] [address] 70224 Machine Filler: Neo Burt for rejectionUnable to perform testing: Specimen mislabeled.NormalBethesda North HospitalComment on above: Performed By: #### CDP, BMP, CRP, PRCAL #### [facility] [address] [place] [address] 12465 Machine Filler: Luz Burt of sample.BLOODNormalBethesda North HospitalComment on above:Performed By: #### CDP, BMP, CRP, PRCAL #### [facility] [address] [place] [address] 62970 Machine Filler: Gigi Burt [facility] CDPNoalBethesda North HospitalComment on above:Performed By: #### CDP, BMP, CRP, PRCAL #### [address] [address] Machine Filler: Barrie Burt [id number] Coag (Bld) [Time]26.3 s Baabgg43.5-30.5Bethesda North HospitalComment on above:Performed By: #### CDP, BMP, CRP, PRCAL #### [address] [address] Machine Filler: Carmen Burt Metabolic Profon 10-24-2018(cont.)Normal [facility] North HospitalComment on above:Result Comment: Average GFR for 50-59 years old: 93 mL/min/1.73sq m Chronic Kidney Disease: <60 mL/min/1.73sq m Kidney failure: <15 mL/min/1.73sq m eGFR calculated using average adult body mass. Additional eGFR calculator available at: http://www.[employer].Countercepts/multiple_crcl_2012.htmPerformed By: #### CDP, BMP, CRP, PRCAL #### [address] [address] Machine Filler: Nicky Burt gap [Moles/Vol]14 mmol/LNormal9-17[facility] North HospitalComment on above:Performed By: #### CDP, BMP, CRP, PRCAL #### [facility] [address] [place] [address] 69535 Machine Filler: Sabas Lamb MDCalcium [Mass/Vol]9.1 mg/dLNormal8.6-10.4[facility] North HospitalComment on above:Performed By: #### CDP, BMP, CRP, PRCAL #### [facility] [address] [place] [address] 04723 Machine Filler: GIOVANNY Burthloride [Moles/Vol]101 mmol/RNuqcvq29-543PazorBethesda North HospitalComment on above:Performed By: #### CDP, BMP, CRP, PRCAL #### [facility] [address] [place] [address] 72809 Machine Filler: Sabas Lamb MDCO2 [Moles/Vol]23 mmol/SVhdehk24-38BkmbgBethesda North HospitalComment on above:Performed By: #### CDP, BMP, CRP, PRCAL #### [facility] [address] [place] [address] 21953 Machine Filler: GIOVANNY Burtreatinine [Mass/Vol]0.34 mg/dLLow0.50-0.90[facility] North HospitalComment on above:Performed By: #### CDP, BMP, CRP, PRCAL #### [facility] [address] [place] [address] 10667 Machine Filler: Sabas Lamb MDGFR, Amer>60Normal>60[facility] North HospitalComment on above:Performed By: #### CDP, BMP, CRP, PRCAL #### [facility] [address] [place] [address] 31300 Machine Filler: Sabas Lamb MDGFR,non Amer>60Normal>60MerCommunity Hospital of the Monterey PeninsulaComment on above:Performed By: #### CDP, BMP, CRP, PRCAL #### [facility] [address] [place] [address] 78350 Machine Filler: Sabas Lamb MDGlucose [Mass/Vol]86 mg/iXJrdljq53-41UtiwyLos Gatos campusComment on above:Performed By: #### CDP, BMP, CRP, PRCAL #### [facility] [address] [place] [address] 87299 Machine Filler: HILDA Burtotassium [Moles/Vol]3.9 mmol/LNormal3.7-5.3 [facility] HospitalComment on above:Performed By: #### CDP, BMP, CRP, PRCAL #### [facility] [address] [place] [address] 08636 Machine Filler: LAURA Burtodium [Moles/Vol]138 mmol/CWsjjex589-475GmwnwBethesda North HospitalComment on above:Performed By: #### CDP, BMP, CRP, PRCAL #### [facility] [address] [place] [address] 58724 Machine Filler: Patel Burt nitrogen [Mass/Vol]11 mg/dLNormal6-20[facility] North HospitalComment on above:Performed By: #### CDP, BMP, CRP, PRCAL #### [facility] [address] [place] [address] 59906 Machine Filler: MOE Burt/CRE HariOT REPORTEDNormal9-20[facility] North HospitalComment on above:Performed By: #### CDP, BMP, CRP, PRCAL #### [facility] [address] [place] [address] 58840 Machine Filler: LAURA Burttaging:NOT REPORTEDNormalBethesda North HospitalComment on above:Performed By: #### CDP, BMP, CRP, PRCAL #### [facility] [address] [place] [address] 59632 Machine Filler: Sabas Lamb [facility] CITYMARCI with Diffon [id number]. Basophil0.03 k/uL Normal0.00-0.20[facility] North HospitalComment on above:Performed By: #### CDP, BMP, CRP, PRCAL #### [facility] [address] [place] [address] 41470 Machine Filler: MDAbs. CarmelImm.Granulocyte0.05 k/uLNormal0.00-0.30[facility] North HospitalComment on above:Performed By: #### CDP, BMP, CRP, PRCAL #### [address] [address] Machine Filler: MDAbs. CarmelNeutrophil (Seg)12.06 k/uLHigh1.50-8.10Bet[facility] North HospitalComment on above:Performed By: #### CDP, BMP, CRP, PRCAL #### [address] [address] Machine Filler: Sabas Lamb MDBasophils/100 WBC (Bld)0 %Normal0-2MSt. Joseph HospitalComment on above:Performed By: #### CDP, BMP, CRP, PRCAL #### [address] [address] Machine Filler: Sabas Lamb MDEosinophils (Bld) [#/Vol]10*3/uLNormal0.00-0.44 [facility] HospitalComment on above:Performed By: #### CDP, BMP, CRP, PRCAL #### [address] [address] Machine Filler: STACEY Burtosinophils/100 WBC (Bld)0 %Low1-4[facility] North HospitalComment on above:Performed By: #### CDP, BMP, CRP, PRCAL #### [facility] [address] [place] [address] 28902 Machine Filler: Sabas Lamb MDErythrocyte distribution width (RBC) [Ratio]11.9 %Fmsoaz53.8-14.4[facility] North HospitalComment on above:Performed By: #### CDP, BMP, CRP, PRCAL #### [facility] [address] [place] [address] 60492 Machine Filler: Sabas Lamb MDHematocrit (Bld) [Volume fraction]39.6 %Normal 36.3-47.1MSt. Joseph HospitalComment on above:Performed By: #### CDP, BMP, CRP, PRCAL #### [address] [address] Machine Filler: Sabas Lamb MDHemoglobin (Bld) [Mass/Vol]12.3 g/dLNormal 11.9-15.1MSt. Joseph HospitalComment on above:Performed By: #### CDP, BMP, CRP, PRCAL #### [place] [address] Machine Filler: Sabas Lamb MDImmature granulocytes (Bld) [#/Vol]0 %Normal0 [facility] North HospitalComment on above:Performed By: #### CDP, BMP, CRP, PRCAL #### [address] [address] Machine Filler: Aydin Burtmphocytes (Bld) [#/Vol]0.82 10*3/uLLow 1.10-3.70[facility] HospitalComment on above:Performed By: #### CDP, BMP, CRP, PRCAL #### [address] [address] Machine Filler: Aydin Burtmphocytes/100 WBC (Bld)6 %Vet77-06AbdfzBethesda North HospitalComment on above:Performed By: #### CDP, BMP, CRP, PRCAL #### [address] [address] Machine Filler: SILVIA BurtCH (RBC) [Entitic mass]31.1 pqFrjfvu42.2-33.5 [facility] HospitalComment on above:Performed By: #### CDP, BMP, CRP, PRCAL #### [address] [address] Machine Filler: SILVIA BurtCHC (RBC) [Mass/Vol]31.1 g/vEEopndr41.4-34.8 [facility] HospitalComment on above:Performed By: #### CDP, BMP, CRP, PRCAL #### [address] [address] Machine Filler: SILVIA BurtCV (RBC) [Entitic vol]100.3 gLCduqag47.6-102.9 [facility] HospitalComment on above:Performed By: #### CDP, BMP, CRP, PRCAL #### [address] [address] Machine Filler: SILVIA Burtonocytes (Bld) [#/Vol]0.80 10*3/uLNormal 0.10-1.20[facility] HospitalComment on above:Performed By: #### CDP, BMP, CRP, PRCAL #### [address] [address] Machine Filler: SILVIA Burtonocytes/100 WBC (Bld)6 %Normal3-12[facility] North HospitalComment on above:Performed By: #### CDP, BMP, CRP, PRCAL #### [facility] [address] [place] [address] 77867 Machine Filler: Sabas Lamb MDNeutrophil (Seg)88 %Qddl66-74KallqBethesda North HospitalComment on above:Performed By: #### CDP, BMP, CRP, PRCAL #### [facility] [address] [place] [address] 94225 Machine Filler: Sabas Lamb MDNRBC Automated0.0 per 100 WBCNormal0.0[facility] HospitalComment on above:Performed By: #### CDP, BMP, CRP, PRCAL #### [facility] [address] [place] [address] 97946 Machine Filler: Jeremi Burt mean volume (Bld) [Entitic vol]11.5 fL Normal8.1-13.5[facility] North HospitalComment on above:Performed By: #### CDP, BMP, CRP, PRCAL #### [facility] [address] [place] [address] 21396 Machine Filler: Alejandro Burt (Bld) [#/Vol]261 10*3/cAHwqevd262-497 [facility] HospitalComment on above:Performed By: #### CDP, BMP, CRP, PRCAL #### [facility] [address] [place] [address] 07267 Machine Filler: CAMILLE BurtBC (Bld) [#/Vol]3.95 10*6/uLNormal3.95-5.11 [facility] HospitalComment on above:Performed By: #### CDP, BMP, CRP, PRCAL #### [facility] [address] [place] [address] 88936 Machine Filler: ALICIA Burt (Bld) [#/Vol]13.8 10*3/uLHigh3.5-11.3MSt. Joseph HospitalComment on above:Performed By: #### CDP, BMP, CRP, PRCAL #### [facility] [address] [place] [address] 98990 Machine Filler: Claudio Burt PerformedNOT REPORTEDMarion HospitalComment on above:Performed By: #### CDP, BMP, CRP, PRCAL #### [facility] [address] [place] [address] 02639 Machine Filler: Alejandro Burt (Bld) [#/Vol]NOT REPORTEDNormalBethesda North HospitalComment on above:Performed By: #### CDP, BMP, CRP, PRCAL #### [facility] [address] [place] [address] 25537 Machine Filler: KATY Burt morphology finding Nom (Bld)NOT REPORTED Marion HospitalComment on above:Performed By: #### CDP, BMP, CRP, PRCAL #### [facility] [address] [place] [address] 18445 Machine Filler: ALICIA Burt MorphologyNOT REPORTEDNoSheltering Arms HospitalComment on above:Performed By: #### CDP, BMP, CRP, PRCAL #### [facility] [address] [place] [address] 19790 Machine Filler: Zena Burt [id number] Coag (PPP) [Relative time]1.0 {INR}Marion HospitalComment on above:Result Comment: Therapeutic Range: Moderate Anticoagulant Intensity: INR = 2.0-3.0 High Anticoagulant Intensity: INR = 2.5-3.5Performed By: #### CDP, BMP, CRP, PRCAL #### [facility] [address] [place] [address] 97108 Machine Filler: EDISON Burt Coag (PPP) [Time]10.8 sNormal9.0-12.0[facility] North HospitalComment on above:Performed By: #### CDP, BMP, CRP, PRCAL #### [facility] [address] [place] [address] 29166 Machine Filler: Carmen Burt Metabolic Profon 10-23-2018(cont.)[facility] Liverpool City HospitalComment on above:Result Comment: Average GFR for 50-59 years old: 93 mL/min/1.73sq m Chronic Kidney Disease: <60 mL/min/1.73sq m Kidney failure: <15 mL/min/1.73sq m eGFR calculated using average adult body mass. Additional eGFR calculator available at: http://www.[employer].com/multiple_crcl_2012.htmPerformed By: #### CDP, BMP, CRP, PRCAL #### [facility] [address] [place] [address] 12572 Machine Filler: Sabas Lamb MDAnion gap [Moles/Vol]14 mmol/LNormal9-17[facility] HospitalComment on above:Performed By: #### CDP, BMP, CRP, PRCAL #### [facility] [address] [place] [address] 38419 Machine Filler: Sabas Lamb MDCalcium [Mass/Vol]8.2 mg/dLLow8.6-10.4[facility] HospitalComment on above:Performed By: #### CDP, BMP, CRP, PRCAL #### [facility] [address] [place] [address] 93952 Machine Filler: Sabas Lamb MDChloride [Moles/Vol]107 mmol/XDyedyl92-944ImtwdBethesda North HospitalComment on above:Performed By: #### CDP, BMP, CRP, PRCAL #### [facility] [address] [place] [address] 29033 Machine Filler: Sabas Lamb MDCO2 [Moles/Vol]20 mmol/EKtugak84-87ApkawBethesda North HospitalComment on above:Performed By: #### CDP, BMP, CRP, PRCAL #### [facility] [address] [place] [address] 30916 Machine Filler: Sabas Lamb MDCreatinine [Mass/Vol]0.42 mg/dLLow0.50-0.90[facility] HospitalComment on above:Performed By: #### CDP, BMP, CRP, PRCAL #### [facility] [address] [place] [address] 11587 Machine Filler: Sabas Madoff, MDGFR, Amer>60Normal>60MerCommunity Hospital of the Monterey PeninsulaComment on above:Performed By: #### CDP, BMP, CRP, PRCAL #### [facility] [address] [place] [address] 16328 Machine Filler: Sabas Lamb MDGFR,non Amer>60Normal>60MerCommunity Hospital of the Monterey PeninsulaComment on above:Performed By: #### CDP, BMP, CRP, PRCAL #### [facility] [address] [place] [address] 21397 Machine Filler: Sabas Lamb MDGlucose [Mass/Vol]87 mg/gBPutikz08-17JbhzwSt. Joseph HospitalComment on above:Performed By: #### CDP, BMP, CRP, PRCAL #### [address] [address] Machine Filler: HILDA Burtotassium [Moles/Vol]3.9 mmol/LNormal3.7-5.3 [facility] HospitalComment on above:Performed By: #### CDP, BMP, CRP, PRCAL #### [facility] [address] [place] [address] 83341 Machine Filler: LAURA Burtodium [Moles/Vol]141 mmol/JJryvmn153-201MesegBethesda North HospitalComment on above:Performed By: #### CDP, BMP, CRP, PRCAL #### [facility] [address] [place] [address] 76204 Machine Filler: Sabas Lamb MDUrea nitrogen [Mass/Vol]14 mg/dLNormal6-20[facility] HospitalComment on above:Performed By: #### CDP, BMP, CRP, PRCAL #### [facility] [address] [place] [address] 95292 Machine Filler: MOE Burt/CRE HariOT REPORTEDNormal9-20[facility] HospitalComment on above:Performed By: #### CDP, BMP, CRP, PRCAL #### [facility] [address] [place] [address] 69299 Machine Filler: LAURA Burttaging:NOT REPORTEDNormalBethesda North HospitalComment on above:Performed By: #### CDP, BMP, CRP, PRCAL #### [facility] [address] [place] [address] 54244 Machine Filler: GIOVANNY Burt-Reactive Proteinon [id number] [Mass/Vol] 40.6 mg/LHigh0.0-5.0[facility] HospitalComment on above:Performed By: #### CDP, BMP, CRP, PRCAL #### [facility] [address] [place] [address] 55930 Machine Filler: GIOVANNY Burt with Diffon [id number]. Basophil0.03 k/uL Normal0.00-0.20[facility] HospitalComment on above:Performed By: #### CDP, BMP, CRP, PRCAL #### [facility] [address] [place] [address] 52673 Machine Filler: Bridgette Burt.Imm.Granulocyte0.05 k/uLNormal0.00-0.30[facility] HospitalComment on above:Performed By: #### CDP, BMP, CRP, PRCAL #### [facility] [address] [place] [address] 56537 Machine Filler: Bridgette Burt.Neutrophil (Seg)13.74 k/uLHigh1.50-8.10[facility] HospitalComment on above:Performed By: #### CDP, BMP, CRP, PRCAL #### [facility] [address] [place] [address] 00155 Machine Filler: Sabas Lamb MDBasophils/100 WBC (Bld)0 %Normal0-2MercLos Gatos campusComment on above:Performed By: #### CDP, BMP, CRP, PRCAL #### [address] [address] Machine Filler: STACEY Burtosinophils (Bld) [#/Vol]10*3/uLNormal0.00-0.44 [facility] HospitalComment on above:Performed By: #### CDP, BMP, CRP, PRCAL #### [address] [address] Machine Filler: STACEY Burtosinophils/100 WBC (Bld)0 %Low1-4[facility] HospitalComment on above:Performed By: #### CDP, BMP, CRP, PRCAL #### [place] [address] Machine Filler: Sabas Lamb MDErythrocyte distribution width (RBC) [Ratio]12.1 %Zoqjno32.8-14.4[facility] HospitalComment on above:Performed By: #### CDP, BMP, CRP, PRCAL #### [address] [address] Machine Filler: Sabas Lamb MDHematocrit (Bld) [Volume fraction]35.7 %Low 36.3-47.1MSt. Joseph HospitalComment on above:Performed By: #### CDP, BMP, CRP, PRCAL #### [facility] [address] [place] [address] 24115 Machine Filler: Sabas Lamb MDHemoglobin (Bld) [Mass/Vol]11.5 g/dLLow11.9-15.1 [facility] HospitalComment on above:Performed By: #### CDP, BMP, CRP, PRCAL #### [facility] [address] [place] [address] 41312 Machine Filler: Sabas Lamb MDImmature granulocytes (Bld) [#/Vol]0 %Normal0 [facility] HospitalComment on above:Performed By: #### CDP, BMP, CRP, PRCAL #### [facility] [address] [place] [address] 69447 Machine Filler: Aydin Burtmphocytes (Bld) [#/Vol]1.21 10*3/uLNormal 1.10-3.70[facility] HospitalComment on above:Performed By: #### CDP, BMP, CRP, PRCAL #### [facility] [address] [place] [address] 40704 Machine Filler: Rea Burthocytes/100 WBC (Bld)8 %Wod30-94TqcwcBethesda North HospitalComment on above:Performed By: #### CDP, BMP, CRP, PRCAL #### [facility] [address] [place] [address] Machine Filler: SILVIA BurtCH (RBC) [Entitic mass]31.8 fnYiqfzy08.2-33.5 [facility] HospitalComment on above:Performed By: #### CDP, BMP, CRP, PRCAL #### [facility] [address] [place] [address] 52206 Machine Filler: BREA BurtC (RBC) [Mass/Vol]32.2 g/tRRkshae15.4-34.8 [facility] HospitalComment on above:Performed By: #### CDP, BMP, CRP, PRCAL #### [facility] [address] [place] [address] 01269 Machine Filler: SILVIA BurtCV (RBC) [Entitic vol]98.6 dNFwzrsj37.6-102.9 [facility] HospitalComment on above:Performed By: #### CDP, BMP, CRP, PRCAL #### [facility] [address] [place] [address] 27757 Machine Filler: SILVIA Burtonocytes (Bld) [#/Vol]1.01 10*3/uLNormal 0.10-1.20[facility] HospitalComment on above:Performed By: #### CDP, BMP, CRP, PRCAL #### [facility] [address] [place] [address] 97436 Machine Filler: SILVIA Burtonocytes/100 WBC (Bld)6 %Normal3-12[facility] HospitalComment on above:Performed By: #### CDP, BMP, CRP, PRCAL #### [facility] [address] [place] [address] 84409 Machine Filler: Andrés Burtophil (Seg)86 %Qlob08-05VomzcBethesda North HospitalComment on above:Performed By: #### CDP, BMP, CRP, PRCAL #### [facility] [address] [place] [address] Machine Filler: Sabas Lamb MDNRBC Automated0.0 per 100 WBCNormal0.0[facility] HospitalComment on above:Performed By: #### CDP, BMP, CRP, PRCAL #### [facility] [address] [place] [address] Machine Filler: Jeremi Burt mean volume (Bld) [Entitic vol]11.7 fL Normal8.1-13.5[facility] HospitalComment on above:Performed By: #### CDP, BMP, CRP, PRCAL #### [facility] [address] [place] [address] 69614 Machine Filler: HILDA Burtlatelets (Bld) [#/Vol]268 10*3/lUWkeetr218-511 [facility] HospitalComment on above:Performed By: #### CDP, BMP, CRP, PRCAL #### [facility] [address] [place] [address] 99487 Machine Filler: KATY Burt (Bld) [#/Vol]3.62 10*6/uLLow3.95-5.11[facility] HospitalComment on above:Performed By: #### CDP, BMP, CRP, PRCAL #### [facility] [address] [place] [address] 75746 Machine Filler: ALICIA Burt (Bld) [#/Vol]16.1 10*3/uLHigh3.5-11.3[facility] HospitalComment on above:Performed By: #### CDP, BMP, CRP, PRCAL #### [facility] [address] [place] [address] 62126 Machine Filler: Claudio Burt PerformedNOT REPORTEDNormalBethesda North HospitalComment on above:Performed By: #### CDP, BMP, CRP, PRCAL #### [facility] [address] [place] [address] 62437 Machine Filler: Alejandro Burt (Bld) [#/Vol]NOT REPORTEDNormalBethesda North HospitalComment on above:Performed By: #### CDP, BMP, CRP, PRCAL #### [facility] [address] [place] [address] 79912 Machine Filler: KATY Burt morphology finding Nom (Bld)NOT REPORTED NormalBethesda North HospitalComment on above:Performed By: #### CDP, BMP, CRP, PRCAL #### [facility] [address] [place] [address] 99640 Machine Filler: ALICIA Burt MorphologyNOT REPORTEDNormalBethesda North HospitalComment on above:Performed By: #### CDP, BMP, CRP, PRCAL #### [facility] [address] [place] [address] 12062 Machine Filler: Sabas Lamb, MDCT HEAD WO CONTRASTon [id number] HEAD WO CONTRASTEXAMINATION: CT OF THE HEAD WITHOUT CONTRAST 10/23/2018 4:09 am TECHNIQUE: CT of the head was performed without the administration of intravenous contrast. Dose modulation, iterative reconstruction, and/or weight based adjustment of the mA/kV was utilized to reduce the radiation dose to as low as reasonably achievable. COMPARISON: 10/22/2018 HISTORY: ORDERING SYSTEM PROVIDED HISTORY: post colleen hole TECHNOLOGIST PROVIDED HISTORY: Ordering Physician Provided Reason for Exam: post colleen holes Acuity: Unknown Type of Exam: Unknown [...] left sphenoid sinus mucosal thickening. SOFT TISSUES/SKULL: Colleen holes are now seen in the right frontal and parietal bones. There is overlying subcutaneous soft tissue swelling and gas. IMPRESSION: Improving right subdural collection with diminished midline shift after colleen hole placement. Interpreted by: Cas Contreras MD Signed by: Cas Contreras MD 10/23/18 Final resultNormalMerCommunity Hospital of the Monterey PeninsulaMRI BRAIN W CONTRASTon [id number] BRAIN W CONTRASTEXAMINATION: MRI OF THE BRAIN WITH CONTRAST 10/23/2018 [...] Signed by: Freddie Maldonado MD 10/23/18 Final resultNormalBethesda North HospitalOPERATIVE REPORTon 10-23-[address] [id number] OPERATIVE REPORT PATIENT NAME: LOU FINLEY : 1960 MED REC NO: [id number] ROOM: [facility] ACCOUNT NO: [id number] ADMIT DATE: 10/22/2018 PROVIDER: Meera Rojas DATE [...] with lightheadedness and coughing. She presented at [facility] ER earlier today due to these complaints and was found to have a sizeable right-sided subdural hematoma. She was transferred to [place] for further management. She was reported to be neurologically intact when at the outside hospital, but upon arrival to the ER at [place], she was noted to have some mild [...] stable condition without evidence of complication. MEERA BOB DL/[id number]_I Doc#: [id number] CC:NormalBethesda North HospitalProcalcitoninon [id number] 0.06 ng/mLNormal<0.09[facility] North HospitalComment on above:Result Comment: Suspected Sepsis: 0.09-0.49 ng/mL Low likelihood [...] entered into the Change in Procalcitonin Calculator (www.uzzolq-hpp-ctaopaevoy.com) to determine the patient's Mortality Risk PrognosisPerformed By: #### CDP, BMP, CRP, PRCAL #### [facility] [address] [place] [address] 75658 Machine Filler: MARIAM Burt CHEST PORTABLEon [id number] CHEST PORTABLE EXAMINATION: ONE XRAY VIEW OF [...] by: Jose Carlos Carlson MD 10/23/18 Final resultMarion HospitalPlatelets,Transfuseon 52-04-1973Wezexiwpo,TransfuseUnit Number [id number] Blood Component Type Leukocyte Reduced Irradiated Plateletpheresis Unit Division 00 Status of Unit TRANSFUSED Transfusion Status OK TO [facility]OUTHUSENElyria Memorial HospitalComment on above:Performed By: #### TPLT #### [employer] [address] [place] [address] [id number] Machine Filler: Sabas Lamb MDType + Screenon 04-05-1825Juwg + ScreenSample Expiration 10/25/2018 Arm Band Number [id number] ABO/Rh(D) A POSITIVE Antibody Screen NEGATIVEMarion HospitalComment on above: Performed By: #### TYS #### [employer] [address] [place] [id number] Machine Filler: ROSI Burtischarge Summaryon [id number] Summary MR#: [id number] [facility] Admitted: 06/05/2017Discharged: 06/06/2017 Date of : 1960 Physician: Rachele Post DO DISCHARGE SUMMARYDISCHARGE SERVICE: CCU.PRIMARY DIAGNOSIS: Acute coronary syndrome.SECONDARY DIAGNOSIS: Migraine.PROCEDURE:Percutaneous coronary intervention with stent placement.HOSPITAL COURSE: This is a 56-year-old female with past medical history ofmigraines, who was transferred from [facility]. She presented therewith chest discomfort and was found to have EKG abnormalities. In the lastmonth, the patient reported 3 episodes of chest pain with the latest being. The chest pain was also associated with sweating, shortnessof breath, and nausea. She was transferred from [facility] andadmitted to the CCU. The patient's troponins were remained negative, butwith her chest pain and EKG changes, she was taken to the cardiac cath lab radiology technologist[facility] this showed 90% stenosis in the RCA, 2 stents were put in the midRCA and distal RCA. The patient tolerated the procedure well. The day afterthe procedure, she had no chest pain and no EKG changes. The patient wasstarted on aspirin, Plavix, beta terese, statin and discharged home.CONDITION AT DISCHARGE: Stable [...] personal documentation from me. Date Dict: 06/06/2017/02:36 P/Larissa Key Trans: 06/07/2017 09:17 A/Kong_JN:[id number]: Ryan Arevalo M.D. [address] [facility] [id number] Kel Bueno M.D. [address] [place] [address] of Ramirez Medical CenterBASIC METABOLIC PANELon 36-79-2511Smnuinu1.3 mg/dLNormal 8.6-10.3The [facility] CenterComment on above:Order Comment: UnknownPerformed By: #### 26578, 20193 ####[facility] [place] [address], MBWNxetqayh761 mmol/HRzusdp06-066Mka [facility] CenterComment on above:Order Comment: Unknown Performed By: #### 22553, 53591 ####[facility] [facility] [address], TPQUT359 mmol/PSufkzn50-97Ddy [facility] CenterComment on above:Order Comment: UnknownPerformed By: #### 68773, 89310 ####[facility] [place] [address], USACreatinine0.72 mg/dLNormal0.60-1.20The [facility] Medical CenterComment on above:Order Comment: UnknownPerformed By: #### 37323, 55379 ####[facility] [facility] [address], [facility] eGFR (black)mL/min/{1.73_m2}Normal>60The [facility] Comment on above:Order Comment: UnknownPerformed By: #### 19664, 29468 ####[facility] [facility] [address], [facility] eGFR (non-black)mL/min/{1.73_m2}Normal>60The [facility] Comment on above:Order Comment: UnknownPerformed By: #### 96694, 11443 ####[facility] [place] [address], [place] Glucose mass conc89 mg/hAFnqdbz44-942Ydm [facility] Comment on above:Order Comment: UnknownPerformed By: #### 12244, 11903 ####[facility] [facility] [place] [address], [facility] Potassium molar conc3.8 mmol/LNormal3.5-5.1The [facility] CenterComment on above:Order Comment: UnknownPerformed By: #### 77074, 22921 ####[address] [place] [address], [facility] Ihmsot605 mmol/CTgehig859-612Nwz [facility] CenterComment on above:Order Comment: UnknownPerformed By: #### 85155, 63874 ####[address] [place] [address], [facility] CENTERUrea mg/dLNormal7-25The [facility] CenterComment on above:Order Comment: UnknownPerformed By: #### 47337, 19005 ####[address] [place] [address], [facility] CENTERCB COMPLETE BLOOD COUNTon 04-26-3461Hmzjtinycpw distribution width Auto Ratio (RBC)13.3 %Qxnafg69.5-16.9 The [facility] CenterComment on above:Order Comment: Unknown Performed By: #### 18446 ####[address] [place] [address], [facility] MEDICAL CENTERErythrocytes (RBC)4.43 mill/hf3Ignwwo0.50-5.50The [facility] CenterComment on above:Order Comment: Unknown Performed By: #### 49893 ####[address] [place] [address], [facility] MEDICAL CENTERHematocrit (HCT)40.9 %Bfmzaw03.0-48.0The [facility] CenterComment on above:Order Comment: UnknownPerformed By: #### 35397 ####[address] [place] [address], [facility] MEDICAL CENTERHemoglobin mass conc (Bld)13.6 g/sDHilydw65.0-15.0The [facility] CenterComment on above:Order Comment: UnknownPerformed By: #### 85674 ####[facility] [place] [address], OUSLBF84.7 ipQmsljl57.0-32.0The [facility] Comment on above:Order Comment: UnknownPerformed By: #### 91271 ####[facility] [facility] [place] [address], [facility] CITYHC mass conc (RBC)33.2 g/iDPiawvs66.0-36.0The [facility] CenterComment on above:Order Comment: UnknownPerformed By: #### 99922 ####[facility] [facility] [place] [address], GDDBZF66.2 nPWzobds14.0-100.0 The [facility] CenterComment on above:Order Comment: Unknown Performed By: #### 87969 ####[facility] [facility] [place] [address], [facility] MEDICAL CENTERPLAT DGK785 Thou/av9Ycpijz224-994Kmi [facility] CenterComment on above:Order Comment: UnknownPerformed By: #### 36401 ####[facility] [facility] [place] [address], [facility] CENTERWBC (Leukocytes)10.8 Thou/yi9Sscw5.0-10.0The [facility] CenterComment on above:Order Comment: UnknownPerformed By: #### 29153 ####[facility] [facility].[address] Cardiovascular Lab Reporton [id number] Lab ReportUnClermont County Hospital [facility] MR #: [id number] Physician: Blayne Zhao M.D.Medicine Service Date: 06/05/2017Division of Birthdate: 1960Cardiology Room #: 3CD [id number] [facility] [place], [place] [address]Kpunl Fax Cardiovascular Laboratory ReportINDICATION: Lou Finley is a 56-year-old lady, who was admitted withunstable angina. She was referred forcardiac catheterization.PROCEDURES:1. Bilateral selective coronary angiography.2. Successful balloon [...] and benefits.She signed informed consent. She was broughtto cardiac cath lab radiology technologist in a fastingstate. The right groin area was prepped and draped in usual fashion.Using micropuncture technique, the right common femoral artery wasaccessed. The inner cannula was advanced and limited right femoralangiography was performed followed by upsizing to a 5-Martiniquais x 11 cmsheath.Bilateral selective carotid angiography was then performed using5-Martiniquais JL4 and JR4 diagnostic catheters. Catheters were removed.Heparin was administered intravenously and therapeutic ACT confirmed duringthe procedure. A 5-Martiniquais JR4 guiding catheter was advanced and used toengage the right coronary ostium. A Prowater wire was advanced into thedistal RCA. Balloon angioplasty was performed in thedistal RCA usingEmerge 2.5 x 15 mm balloon inflated at 10 atmospheres. The balloon wasbrought backwards to the mid RCA and used to perform balloon angioplasty at10 atmospheres. Angiography revealed suboptimal results. Therefore, aSynergy 2.75 x 38 mm drug- eluting stent was advanced into the distal RCAand deployed at 11 atmospheres. This was postdilated using NC Quantum Apex3.0 x 20 mm noncompliant balloon, inflated at 16 atmospheres. Followingthat, a Synergy 3.0 x 16 mm drug-eluting stent was deployed in the mid RCAstenosis at 11 atmospheres overlapping with the previously deployed stentfollowed by post dilatation using NC Quantum [place] 3.0 x 20 mm noncompliantballoon inflated at 18 atmospheres treating the area of the overlap of thestents. Final angiography after administration of intracor onarynitroglycerin showed excellent result with reduction of the stenoses to 0%,no evidence of dissection or perforation. The guiding catheter wasremoved. The procedure was concluded. The patient wasloaded with 600 mgof Plavix at the end [...] main arises from left coronary cusp. It bifurcatesinto left anteriordescending and circumflex vessels. Left main is free of disease.Left anterior descending. This has two 30% mid segment lesions, but noobstructive stenosis.Circumflex vessel: This isnondominant, it has 30% stenosis in the secondobtuse [...] proximal branches.SUMMARY OF FINDINGS:1. Severe single-vessel coronary althea ry disease.2. 90% mid and 70% distal RCA stenosis reduced to 0% by 2 overlapping Synergy drug-eluting stents.3. Two 30% mid LAD stenoses.4. 30% stenosis in the second obtuse marginal branch.RECOMMENDATIONS:1. Aspirin and statin therapy for life.2. Plavix therapy for a minimum of 1 year after drug-eluting stenting and unstable angina presentation.3. Maximum control of risk factors.4. Follow up in Cardiology Clinic.Electronically Signed by:Blayne Fonseca M.D. 06/13/2017 07:19 A Blayne Fonseca M.D.Date Dict: 06/05/2017/03:03 P/Blayne Fonseca M.D.Date Trans: 06/06/2017 07:01 A/mmoDN_JN:[id number]: Ryan Arevalo M.D. [address] [address] Kel Bueno M.D. [facility] [id number] Medical Specialty Hospital - AkronMAGNESIUM BLOODon 62-88-3403Manamlesg3.9 mg/dLNormal1.9-2.7The [facility] CenterComment on above:Performed By: #### 37008 ####[facility] [facility] [place] [address], [facility] APTTon 77-18-1744tDMY39.6 lYduifk72.0-35.0The [facility] CenterComment on above:Order Comment: No: Do not add to previous drawResult Comment: ALL RESULTS MUST BE INTERPRETED WITH RESPECT TO BLOOD DRAWING ARTIFACTOR DILUTION ERROR OF ANTICOAGULANT AT THE TIME OF SAMPLING.THE APTT SHOULD NOT BE USED TO MONITOR UNFRACTIONATED HEPARIN THERAPY, THIS LABORATORY NO LONGER HAS AN ESTABLISHED THERAPEUTIC RANGE BASEDON THE APTT. IT IS RECOMMENDED THAT THE [facility] - HEPARIN ASSAY (ANTI-XAACTIVITY) BE USED FOR THIS PURPOSE.Performed By: #### 87931, 29947 ####[facility] [facility] [place] [address], [facility] CENTERBASIC METABOLIC PANELon 06-05-2017 Calcium8.9 mg/dLNormal8.6-10.3The [facility] CenterComment on above:Order Comment: No: Do not add to previous drawPerformed By: #### 24785 ####[facility] [place] [address], [place] Mnzfhcuq229 mmol/CAledvq88-492Poq [facility] CenterComment on above:Order Comment: No: Do not add to previous drawPerformed By: #### 15641 ####[facility] [place] [address], [place] CO228 mmol/KCxspvs87-17Bsr [facility] CenterComment on above: Order Comment: No: Do not add to previous drawPerformed By: #### 75100 ####[facility] [facility] [place] [address], [place] Creatinine0.76 mg/dLNormal0.60-1.20The [facility] Comment on above:Order Comment: No: Do not add to previous drawPerformed By: #### 11767 ####[facility] [place] [address], [place]eGFR (black)mL/min/{1.73_m2}Normal>60The [facility] CenterComment on above:Order Comment: No: Do not add to previous drawPerformed By: #### 78117 ####[facility] [facility] [place] [address], USAeGFR (non-black)mL/min/{1.73_m2}Normal>60The [facility] CenterComment on above:Order Comment: No: Do not add to previous draw Performed By: #### 42436 ####[facility] [facility] [place] [address], [facility] CENTERGlucose mass conc88 mg/cCKgcche35-291Bgb [facility] CenterComment on above:Order Comment: No: Do not add to previous drawPerformed By: #### 72131 ####[facility] [facility].[place] [id number], USAPotassium molar conc3.8 mmol/LNormal3.5-5.1 The [facility] CenterComment on above:Order Comment: No: Do not add to previous drawPerformed By: #### 00819 ####[facility] [place] [address], SDHYpilpa674 mmol/LNormal 136-145The [facility] CenterComment on above:Order Comment: No: Do not add to previous drawPerformed By: #### 76795 ####[facility] [facility] [place] [address], [facility] MEDICAL CENTERUrea gpmfenen75 mg/dL Normal7-25The [facility] CenterComment on above:Order Comment: No: Do not add to previous drawPerformed By: #### 59584 ####[address] [place] [address], [facility] MEDICAL CENTERCBC COMPLETE BLOOD COUNTon 53-50-4901Bxhvfrtxltm distribution width Auto Ratio (RBC)13.9 %Normal 11.5-16.9The [facility] CenterComment on above:Order Comment: No: Do not add to previous drawPerformed By: #### 54073 ####[facility] [place] [address], [facility] MEDICAL CENTERErythrocytes (RBC)4.66 mill/os7Mlvdir3.50-5.50The [facility] CenterComment on above: Order Comment: No: Do not add to previous drawPerformed By: #### 20854 ####[facility] [facility] [place] [address], [facility] Hematocrit (HCT)42.9 %Tsjobp83.0-48.0The [facility] Comment on above:Order Comment: No: Do not add to previous drawPerformed By: #### 96484 ####[address] [place] [address], [facility] MEDICAL CENTERHemoglobin mass conc (Bld)14.2 g/zCPfwrwz32.0-15.0The [facility] CenterComment on above:Order Comment: No: Do not add to previous drawPerformed By: #### 89653 ####[facility] [address], QYIZFH16.5 efIbvejh07.0-32.0The [facility] CenterComment on above:Order Comment: No: Do not add to previous drawPerformed By: #### 22717 ####[facility] [facility] [place] [address], [facility] CITYHC mass conc (RBC)33.1 g/mFUhtaer45.0-36.0 The [facility] CenterComment on above:Order Comment: No: Do not add to previous drawPerformed By: #### 29358 ####[facility] [facility] [place] [address], NCKAEG45.0 rARcdomu45.0-100.0 The [facility] CenterComment on above:Order Comment: No: Do not add to previous drawPerformed By: #### 45392 ####[facility] [facility] [place] [address], [facility]ICAL CENTERPLAT SLO519 Thou/bu4Fgftmy 100-400The [facility] CenterComment on above:Order Comment: No: Do not add to previous drawPerformed By: #### 47741 ####[facility] [place] [address].[place] [address], [facility] MEDICAL CENTERWBC (Leukocytes)6.6 Thou/by3Sscfox2.0-10.0The [facility] CenterComment on above: Order Comment: No: Do not add to previous drawPerformed By: #### 11571 ####[facility] [facility] [place] [address], [facility] Erythrocyte distribution width Auto Ratio (RBC)13.1 %Dtjcfp17.5-16.9The [facility] CenterComment on above:Order Comment: No: Do not add to previous drawPerformed By: #### 64104 ####[facility] [place] [address], [facility] MEDICAL CENTERErythrocytes (RBC)4.49 mill/mm3 Normal3.50-5.50The [facility] CenterComment on above:Order Comment: No: Do not add to previous drawPerformed By: #### 11116 ####[facility] [facility] [place] [address], [facility]ICAL CENTERHematocrit (HCT) 41.7 %Ffvodd93.0-48.0The [facility] CenterComment on above: Order Comment: No: Do not add to previous drawPerformed By: #### 77997 ####[facility] [place] [address].[place] [address], [facility] Hemoglobin mass conc (Bld)13.9 g/qDSyruid98.0-15.0The [facility] CenterComment on above:Order Comment: No: Do not add to previous draw Performed By: #### 12530 ####[facility] [place] [address].[place] [address], MQZCJX20.1 xpWubgou36.0-32.0The [facility] CenterComment on above:Order Comment: No: Do not add to previous draw Performed By: #### 53889 ####[facility] [facility] [place] [address], [facility]ICAL CENTERMCHC mass conc (RBC)33.5 g/uSHmzgir99.0-36.0The [facility] CenterComment on above:Order Comment: No: Do not add to previous drawPerformed By: #### 77168 ####[facility] [place] [address].[place] [address], GKUXQA92.8 zCOgzjbv15.0-100.0The [facility] CenterComment on above:Order Comment: No: Do not add to previous drawPerformed By: #### 68647 ####[facility] [place] [address], [facility] MEDICAL CENTERPLAT FTA984 Thou/zr6Lzyjau649-402 The [facility] CenterComment on above:Order Comment: No: Do not add to previous drawPerformed By: #### 27801 ####[facility] [place] [address], [facility] CENTERWBC (Leukocytes)6.7 Thou/ro2Tvfyag4.0-10.0The [facility] CenterComment on above: Order Comment: No: Do not add to previous drawPerformed By: #### 68249 ####[facility] [facility].[address] History and Physicalon 12-12-0788Yzirafp and PhysicalMR#: [id number] Lou Fin[facility] Admitted: 06/05/2017 Date of : 1960 Attending Physician: Wayne Donis MD Room #: 3CD [id number] Discharge Date: HISTORY AND PHYSICALCHIEF COMPLAINT: Chest pain.HISTORY OF PRESENT ILLNESS: The patient is a 56-year-old female withhistory of migraines, who was transferred [facility] after shepresented there with chest discomfort [...] the neck area. It was associated with sweatin g,shortness of breath, and nausea. It lasted for [...] chest. Because [facility] did [facility], which showed some T waveinversions in the lateral leads, [facility]. [facility] was negative and EKG again asmentioned, was abnormal with T wave inversion in the lateral leads. [facility] and[facility]. When I saw her on the floor, she had minimal discomfort in [facility]. She said that after taking a medication in outside hospital, thepain went away. She believe it was to decrease her heart rate, so Isuspect was metoprolol. The patient reported that she is a current smoker,she smokes about 1 pack a day, has been doing that for manyyears. Migel on the table when she was having an open heart surgery afterheart attack, shewas 56. The patient's father also from heartattack, [...] or drug use.FAMILY HISTORY: Father of an HI at age79 and mother of HI whenshe was having an open heart surgery at age 57.REVIEW OF SYSTEMS: A 10-point review of systems was done, and pertinentpositives and negatives mentioned in the HPI.MEDICATIONS: The patient only takes Imitrex for migraines as needed.PHYSICAL EXAMINATION: VITAL SIGNS: Temperature 98, pulse 75, agpuzlsnggwx12, blood pressure 129/80, and saturating 100% on room air.GENERAL: Pleasant, thin lady, in no acute distress.LUNGS: Clear to auscultation bilaterally.CV: Regular rate and rhythm with no murmurs, clicks, or gallops.ABDOMEN: Soft, nontender, and nondistended. Normal bowel sounds. Norebound. No guarding.EXTREMITIES: No edema.NEURO: She is awake and oriented x3. Faceis symmetric. Speech isfluent. No cerebellar sign.SKIN: No rashes.LABORATORY DATA: As mentioned in the HPI.IMAGING: None.PROBLEMS:1. Chest pain: We will get serial troponins. Cardiology to see the patient in the morning. We will give nitrate as needed for chest pain and will use morphine if the chest pain is severe, not relieved with nitrate. Cardiology to decide about ordering an echo.2. Historyof migraines. No headache at this time. We will hold off on ordering Imitrex.3. DVT prophylaxis, enoxaparin.4. Full code.Electronically Signed by:Wayne Donis MD 06/29/2017 08:35 P Wayne Donis MDDate Dict: 06/05/2017/03:33 A/ROSI Buschate Trans: 06/05/2017 04:23 Asif/Kong_JN:[id number] The [facility] CenterPROTHROMBIN TIMEon 32-79-8738SVI Coag RelTime (PPP)0.98 {INR}Normal0.91-1.16The [facility] Comment on above:Order Comment: No: Do not add to previous drawResult Comment: [facility] RECOMMENDED INR FOR WARFARIN THERAPY CONDITION INRPROPHYLAXIS OF VENOUS THROMBOSIS 2-3(HIGH-RISK SURGERY)TREATMENT OF VENOUS THROMBOSIS 2-3TREATMENT OF PULMONARY EMBOLISM 2-3PREVENTION OF SYSTEMIC EMBOLISM: 2-3 ACUTE MYOCARDIAL INFARCTION TISSUE HEART VALVES VALVULAR HEART DISEASE ATRIAL FIBRILLATION RECURRENT SYSTEMIC EMBOLISMMECHANICAL HEART VALVE 2.5-3.5 FROM: ORAL ANTICOAGULANTS. MECHANISM OF ACTION, CLINICALEFFECTIVENESS, AND OPTIMAL THERAPEU TIC RANGE. [id number];108:231S-246S.Performed By: #### 07470, 10514 ####[facility] [facility] [place] [address], [facility] Prothrombin time (PT) Coag time (PPP)13.0 mHzxehs38.3-14.8The [facility] CenterComment on above:Order Comment: No: Do not add to previous drawResult Comment: ALL RESULTS MUST BE INTERPRETED WITH RESPECT TO BLOOD DRAWING ARTIFACTOR DILUTION ERROR OF ANTICOAGULANT AT THE TIME OF SAMPLING. Performed By: #### 74022, 63806 ####[facility] [facility] [place] [address], USATROPONIN-Ion 37-65-0710Pftgyblo I.cardiac mass conc0.03 ng/mLNormal0.00-0.04The [facility] CenterComment on above:Order Comment: No: Do not add to previous drawResult Comment: REFERENCE RANGES: 0.00 - 0.04 ng/ml NORMAL 0.05 - 0.50 ng/ml INDETERMINATE > 0.50 ng/ml CONSISTENT WITH AN M.I.Performed By: #### 06018 ####[facility] [facility] [place] [address], USATroponin I.cardiac mass conc0.01 ng/mLNormal0.00-0.04The [facility] CenterComment on above:Order Comment: No: Do not add to previous drawResult Comment: REFERENCE RANGES: 0.00 - 0.04 ng/ml NORMAL 0.05 - 0.50 ng/ml INDETERMINATE > 0.50 ng/ml CONSISTENT WITH AN M.I.Performed By: #### 65259 ####[facility] [place] [address], USATroponin I.cardiac mass conc0.02 ng/mLNormal0.00-0.04The [facility] CenterComment on above:Order Comment: No: Do not add to previous drawResult Comment: REFERENCE RANGES: 0.00 - 0.04 ng/ml NORMAL 0.05 - 0.50 ng/ml INDETERMINATE > 0.50 ng/ml CONSISTENT WITH AN M.I.Performed By: #### 13891 ####[facility] [place] [address], [facility] Vital Signs Date TimeVital SignValuePerforming CqsaskixdUnvhmbky58-05-9709 11:15-0400 Diastolic blood dqxxvrhu26 mm[Hg]Elvira Scherer DO Work Phone: [facility] CENTERJFWVFQ05-82-4770 11:15-0400Heart rate75 /minElvira Scherer DO Work Phone: [facility] CENTERLSSBAQ86-50-0119 11:15-0400 Respiratory rate16 /minElvira Scherer DO Work Phone: [place] [address]-14-2023 11:15-5611QjL2% (BldA) [Mass fraction]97 %Elvira Scherer DO Work Phone: [facility]08-14-2023 11:15-0400Systolic blood quysfbmm827 mm[Hg]Elvira Scherer DO Work Phone: [facility] CENTERMIMGEE40-71-9175 10:48-0400Body hmhlijrofxj36.91 [degF]Elvira Scherer DO Work Phone: [facility] [place] [address]NZDQVA62-52-2642 09:50-0400Body .9 cmElvira Scherer DO Work Phone: [place] [address]-14-2023 09:50-0400Body mass index (BMI) [Ratio]19.84 kg/x1RjabzElvira Scherer DO Work Phone: [facility]ITALOU[facility] [place] [address]TKXLNM19-13-8262 09:50-0400Body .63 kgElvira Scherer DO Work Phone: [facility] HOSPITALTestPlant06-26-2023 10:15-0400Diastolic blood xkkpqdno18 mm[Hg]Elvira Scherer DO Work Phone: [facility] [employer]apper ETINAB86-04-1407 10:15-0400Heart rate66 /minElvira Scherer DO Work Phone: [facility] HOSPITALIntellinX SLRXNV72-70-5030 10:15-8493SiW3% (BldA) [Mass fraction]97 %Elvira Scherer DO Work Phone: [facility]OSPITALTestPlant06-26-2023 10:15-0400Systolic blood oybrjzmj897 mm[Hg]Elvira Scherer DO Work Phone: [facility] for; to (do)06-26-2023 09:41-0400Body odyjskwzuck53 [degF]Elvira Scherer DO Work Phone: [facility] HOSPITALIntellinX YRNJPZ38-32-9728 09:41-0400 Respiratory rate18 /minElvira Scherer DO Work Phone: [facility]OSPITALIntellinX AWPKFM93-87-2671 08:20-0400Body mass index (BMI) [Ratio]20.18 kg/t7ZlkduElvira Scherer DO Work Phone: [facility] [employer]apper ECQJCW11-58-6666 08:20-0400Body xqgqyf57.44 kgElvira Scherer DO Work Phone: [facility] [employer]apper JDZYYE86-13-2353 11:32-0400Body homxfn882.9 cmElvira Scherer DO Work Phone: [facility] SYSTEMSpectrum Devices [facility] Encounters Encounter DateEncounter TypeCare ProviderFacilityStart: 01-19-2023 End: 21-90-7696eyxqrpqxujOTLTJGT M HOYMercy Brockton HospitalStart: 01-19-2023 End: 08-70-6776Detlivnxvh hospital visit by physicianElvira Scherer DO Work Phone: [place] ORStart: 12-01-2022 End: 22-21-5232ggvrbyohaeTDDIMQW M HOYMercy Brockton HospitalStart: 12-01-2022 End: 28-25-1493Qvhsosmeyy hospital visit by physicianElvira Scherer DO Work Phone: mthz ORStart: 09-09-2022 End: 56-36-3486otooswvyskGA YRAN HOY .Facility:F9Piobh: 20-52-0121Gqrlfvnno for general adult medical examination without abnormal findingsDR RYAN HOY . [facility]: 08-21[facility]2022 End: 19-74-5743xdzliybeclDH RYAN HOY .Facility:C1Dohps: 08-21-2022 End: 07-03-9277Rdybtkriz for general adult medical examination without abnormal findingsDR RYAN HOY .Facility:D2Nlbsk: 08-15-2022 End: 87-90-9119rqiisorqbhRR RYAN HOY .Facility:M3Zhtzo: 10-22-2018 End: 25-58-4584Avtcfuujar and management of inpatientMEERA Barrios BenProvidence St. Joseph Medical Centertart: 06-05-2017 End: 15-05-3741Bgoktkpacj and management of inpatientDAALMA Germain HARINDERLORETTA Facility:[facility] Procedures DateProcedureProcedure DetailPerforming ClinicianStart: 48-94-0970IW CONSULT TO HOME CARE NEEDSDAVID BOBStart: 29-60-5698HFQKKTQLF PATIENTDAVID LEWISStart: 39-34-0194OUWOCKYO OXYGEN THERAPY PROTOCOLDAVID BOBStart: 38-96-2977Qjsxm metabolic panel calcium totalDAVID LEWISStart: 61-63-8268Iwrsf count complete auto&auto difrntl wbcDAVID BOBStart: 54-36-2607KEEDAY AND OUTPUTDAMILADIS ROJAS Start: 11-83-2091CPZHDZT HEELS OFF OF BEDDAVIPorter ROJASStart: 49-14-5315BTCM OF BED 60 DEGREES OR LESSDAVIPorter ROJASStart: 35-93-7155BZBUJTM COMMUNICATIONDACAROLAD BOB Start: 04-53-7831BYTI PATIENTDAVID BOBStart: 09-06-9071KFDXYPQAQYYSO NURSING CARE ORDER (SPECIFY)MEERA LEWISStart: 54-85-5814MVSMQGVP OXYGEN THERAPY PROTOCOL MEERA LEWISStart: 45-20-4408Cazos panelDAVID LEWISStart: 87-84-4875Gjtft metabolic panel calcium totalDAVID LEWISStart: 38-93-3738Ltwoa count complete auto&auto difrntl wbcDAVID LEWISStart: 75-31-9510AJNYQSFL SPECIMENDAVIPorter ROJAS Start: 11-23-2862Iznw tst prsmv instrmnt chem analyzers pr dateDAVID LEWISStart: 35-40-1854VUYUCD AND OUTPUTDAVID LEWISStart: 65-84-1985Hzolreggmmu timeDAVID LEWISStart: 21-79-0576Eofufeflhsgevk time partial plasma/whole bloodDAVID BOB Start: 20-12-9169Wlzik metabolic panel calcium totalDAVID LEWISStart: 10-24-2018 Blood count complete auto&auto difrntl wbcDAVID LEWISStart: 72-28-8167CLEJCAOG OXYGEN THERAPY PROTOCOLDAMILADIS ROJASStart: 57-58-3860UJKG GENERALDAVID LEWISStart: 60-12-5015IEKUWF AND OUTPUTDAVID LEWISStart: 82-27-4877Kki brain brain stem w/contrast materialDAVID BOBStart: 62-70-0251EQKFNIO COMMUNICATIONDAMILADIS ROJAS Start: 31-82-0153Qsjjbrzjnt exam chest single viewDAVID LEWISStart: 10-23-2018 INITIATE OXYGEN THERAPY PROTOCOLDAVID BOBStart: 90-05-6227Ujsnb dip stick/tablet rgnt auto w/o microscopyDAVID LEWISStart: 31-84-1134Ts head/brain w/o contrast materialDAVID LEWISStart: 61-03-5019Yssel metabolic panel calcium totalDAVID LEWISStart: 21-91-4892Wfklp count complete auto&auto difrntl wbcDAVID LEWISStart: 94-37-5104Y-reactive proteinDAVID LEWISStart: 10-23-2018 Procalcitonin (pct)MEERA ROJASStart: 39-25-9065TMUPAW AND OUTPUTDAVID BOB Start: 98-63-7249VSNBMMHO PATIENTDAVID LEWISStart: 46-67-3108ZFDIGNQA INDWELLING CATHETHERDAVID LEWISStart: 59-70-0199OYYSJFJ HOBDAVID LEWISStart: 10-23-2018 FULL CODEDAVID LEWISStart: 29-15-1811KOYGBYTY OXYGEN THERAPY PROTOCOLDAVID BOB Start: 63-06-6254YLHOHQ AND OUTPUTDAVID LEWISStart: 48-79-4722AODYK CHECKSDAVIPorter LEWISStart: 10-26-3557UP EVAL AND TREATDAVID LEWISStart: 03-47-4571HENPX INTERMITTENT PNEUMATIC COMPRESSION DEVICEDAVID LEWISStart: 53-91-3880QJ EVAL AND TREATDAVID LEWISStart: 90-99-2496SNNFPGB PRECAUTIONSDAVID BOBStart: 76-36-2955SNS EVAL AND TREATDAVID BOBStart: 73-06-9700ODDUBEO CESSATION EDUCATIONDAMILADIS ROJASStart: 18-60-6746HBEUT SIGNSDAVIPorter ROJASStart: 10-23-2018 WOUND CAREDAVIPorter ROJASStart: 69-10-9443XUAOTFCNG PLATELETSDAMILADIS ROJASStart: 45-55-4294Eglkkrcsjki blood/blood componentsDAMILADIS ROJASStart: 11-47-7546ZMGEVGG STATUS (FROM ED OR OR/PROCEDURAL)MEERA ROJASStart: 35-54-8478JKTF AND SCREEN MEERA Garciaart: 72-19-4717Rum routine ecg w/least 12 lds w/i&rDAVID BOB Start: 66-74-0634DJ CONSULT TO NEUROSURGERYDAMILADIS ROJASStart: 14-93-5028XSSJABDQ OF 1 COR ART WITH 2 DRUG-ELUT, PERC APPROACHGEORGE V MOUKARBELStart: 06-05-2017 FLUOROSCOPY OF MULTIPLE CORONARY ARTERIES [facility] CONTRASTGEORGE V MOUKARBEL Plan of Treatment DateCare ActivityDetailAuthorStart: 01-19-2023 End: 47-55-2657Heugpr ctrc rmvl insj io lens prosth w/o ecpEYE CATARACT EMULSIFICATION IOL IMPLANT Combined forms of age-related cataract of right eye 01/19/2023 10:26 AM [facility]tart: 14-70-7792Idprnwnpv vaccinationBON MIDDLETOWN HOSPITALStart: 12-01-2022 End: 98-34-4688Idbzsb ctrc rmvl insj io lens prosth w/o ecpEYE CATARACT EMULSIFICATION IOL IMPLANT Age-related nuclear cataract of left eye 12/01/2022 9:07 [facility] Centertart: 95-80-3331Pwasi panelLipidsLake Taylor Transitional Care Hospitalart: 63-96-9163Ydkexvgeu for malignant neoplasm of breast Breast cancer screenHenrico [facility]' [facility]: 29-06-5857Nguzupfvf for malignant neoplasm of lungLow dose CT lung screening &/or counselingHenrico Doctors' Hospital—[facility]: 30-60-7130Pabqxoxo vaccine (1 of 2)Shingles vaccine (1 of 2) [facility]: 50-37-0462Hjoufggwi for malignant neoplasm of colonHenrico Doctors' Hospital[facility]: 53-43-0033BDhW/Tdap/Td vaccine (1 - Tdap) DTaP/Tdap/Td vaccine (1 - Tdap)[facility]: 08-29-1978 Hepatitis C screeningHepatitis C screenHenrico Doctors' Hospital—[facility]: 08-29-1974 HIV screeningHIV [facility]: 54-19-4311Prghgrxncn ScreenDepression [facility]: 12-28-4779Nvgcjalaftpl 0- 64 years Vaccine (1 - PCV)Pneumococcal 0-64 years Vaccine (1 - PCV)[facility]: 28-84-3004IRJQZ-19 Vaccine (#1)COVID-19 Vaccine (#1)[facility]OS[facility]ITALOxygen therapy [Minimum Data Set]Initiate Oxygen Therapy Protocol Respiratory Care Routine Daily until discontinued starting 12/01/2022 [facility] on above:Daily until discontinued starting 12/01/2022Oxygen therapy [Minimum Data Set]Initiate Oxygen Therapy Protocol Respiratory Care Routine Daily until discontinued starting 12/01/2022[facility] on above:Daily until discontinued starting 12/01/2022Oxygen therapy [Minimum Data Set]Initiate Oxygen Therapy Protocol Respiratory Care Routine Daily until discontinued starting 01/19/2023[facility] on above:Daily until discontinued starting 01/19/2023Oxygen therapy [Minimum Data Set]Initiate Oxygen Therapy Protocol Respiratory Care Routine Daily until discontinued starting 01/19/2023ON MIDDLETOWN HOSPITALComment on above:Daily until discontinued starting 01/19/2023 Payers DatePayer CategoryPayerPolicy [id number] 2..[id number] 2..[id number] 2..[id number] 2..[id number] [id number] [id number] Medical [id number] Social History DateTypeDetailFacilityStart: 39-83-2240Thfkzfk smoking status NHISSmokes tobacco dailyCENTRA LYNCHBURG GENERAL HOSPITALHistory of tobacco useCigarette SmokerCENTRA LYNCHBURG GENERAL HOSPITALStart: 57-74-2825Zyyotcobly smoked current (pack per day) - Reported 1BON MIDDLETOWN HOSPITALStart: 30-47-9924Qxjvuoe use and exposureSmokeless tobacco non-userCENTRA LYNCHBURG GENERAL HOSPITALStart: 12-01-2022 End: 61-41-4829Uvnaeqa intakeLifetime non-drinker (finding)[facility]OSPITALStart: 18-61-3402Rwhocru SDOH Alcohol Duasasmls6RWG [facility] Start: 65-86-5776Tna Assigned At BirthNot on [facility] Medical Equipment Procedure CodeEquipment CodeEquipment Original TextEquipment IdentifierDatesLens Intraocular Bcnvx 22+ Diopt 6x12.5 Mm Acryl Envista - [id number] Start: 56-72-8888Pksu Intraocular Bcnvx 22+ Diopt 6x12.5 Mm Acryl Envista - [id number]: 01-19-2023 History of Present illness Narrative 01-19-2023 Note Date & BebfBnxdWskkohmj53-14-9980 History of Present illness Narrative* Scot Velazquez RN - 01/19/2023 11:25 AM EDT Discharge Criteria Inpatients must meet Criteria 1 [...] 14. Accompanied by a responsible adult. Yes * Scot Velazquez RN - 01/19/2023 11:20 AM EDT Anesthesia aware of B/P reading advised patient to wait till this afternoon to take B/P med. Patient voiced understanding. * Scot Velazquez RN - 01/19/2023 11:10 AM EDT Discharge instructions given to patient and with understanding voiced. No questions asked at this time. * Maria Eugenia Arnold RN - 01/07/2023 2:05 PM EDT Patient received NPO instructions and pre-op medication instructions to be taken on the day of the procedure with a small sip of water. Pt was also given pre-op eye drop instructions from Dr. Waldrop. Instructed pt to use inhaler and to take keppra and celexa with a small sip of water prior to arriving to the hospital the day of surgery. * Maria Eugenia Arnold RN - 01/06/2023 12:05 PM EDT Attempted PAT phone call; no answer; message left to return PAT phone call. documented in [facility] encounterB[facility] 01-19-2023 Note Date & QizdSisiBzmzpqnn48-18-4494 Hospital Discharge instructions* Discharge Instructions* Elvira Scherer DO - 01/19/2023 10:52 AM [...] the healing period. The office number is [phone]. Take surgery bag and all eye drops to Dr. Scherer's office tomorrow at 9:50am. You may resume your normal diet. Start your eye drops tomorrow after your post-op appointment: Ofloxacin/Polytrim one drop to the operated eye 4 times daily Prednisolone one drop to the operated eye 4 times daily documented in this encounterBON [facility]DLETOWN [facility]PITAL History of Present illness Narrative 12-01-2022 Note Date & QydrHxdvBljoutun00-06-7082 History of Present illness Narrative* Kadie Mckinney RN - 12/01/2022 10:05 AM EDT Patient verbalizes readiness for discharge at this [...] 14. Accompanied by a responsible adult. Yes * Kadie Mckinney RN - 12/01/2022 10:01 AM EDT Discharge instructions reviewed with patient and patient's spouse. Verbalized understanding and denied any questions. * Scot Bryant RN - 12/01/2022 9:15 AM EDT Contact lens soaked in patient's home supply of ophthalmic antibiotic solution prior to placement in eye at the end of procedure. * Erin Chen RN - 11/21/2022 1:04 PM EDT EKG [facility] from [facility], will have anesthesia review. * Keke Begum RN - 11/17/2022 11:37 AM EDT Patient instructed on the pre-operative, intra-operative, and post-operative process. Patient instructed on NPO status. Medication instructions and pre operative instruction sheet reviewed with the patient. CHG skin prep instructions reviewed with patient via telephone. Patient instructed to stop ta dimitris all aspirin products for 7 days prior to surgery and to only take metoprolol and keppra the morning of surgery with small sip of water. Dr. Ferrera office notified patient needs a pre operative EKG done. documented in this encounterBON [facility] Dis[facility] 12-01-2022 Note Date & JmmjTukeBxgoaeyr04-83-5524 Hospital Discharge instructions* Discharge Instructions* Elvira Anabelle Paul, DO - 12/01/2022 9:38 AM EDT SAME [...] the healing period. The office number is [phone]. Take surgery bag and all eye drops to Dr. Scherer's office tomorrow at 8:50am. You may resume your normal diet. 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 documented in this encounter [facility] Evaluation note Note Date & TypeNoteFacilityEvaluation note* Diagnosis Age-related nuclear cataract of right eye- Primary Senile nuclear sclerosis documented in this encounter [facility] Summary Purpose Family History No Family History Records FoundNo Family History Records FoundNo Family History Records FoundNo Family History Records FoundNo Family History Records FoundNo Family History Records FoundNo Family History Records Found Advance Directives No Advanced Directives Records FoundLatest Code Status on File Code StatusDate ActivatedDate InactivatedCommentsFull Code12/01/2022 8:08 AMCode StatusDate ActivatedDate InactivatedCommentsFull Code10/22/2018 11:13 PM10/26/2018 6:13 PMCode StatusDate ActivatedDate InactivatedCommentsFull Code01/19/2023 9:38 AMCode StatusDate ActivatedDate InactivatedCommentsFull Code12/01/2022 8:08 AM 12/01/2022 12:28 PMFull Code10/22/2018 11:13 PM10/26/2018 6:13 PM Additional Source Comments INFORMATION SOURCE (unrecogn ized section and content) DATE CREATED AUTHOR 11/30/2017 [facility] DATE CREATED AUTHOR AUTHOR'S ORGANIZ ATION 01/19/2019 [facility] DATE CREATED AUTHOR AUTHOR'S ORGANIZ ATION 04/13/2021 [facility] DATE CREATED AUTHOR AUTHOR'S ORGANIZ ATION 08/26/2021 [facility] DATE CREATED AUTHOR AUTHOR'S ORGANIZ ATION 09/14/2022 [facility] DATE CREATED AUTHOR AUTHOR'S ORGANIZ ATION 01/22/2023 [facility] DATE CREATED AUTHOR AUTHOR'S ORGANIZ ATION 06/04/2023 [facility] Reason for Visit (unrecogniz ed section and content) SpecialtyDiagnoses / ProceduresReferred By ContactReferred To Contact Diagnoses Age-related nuclear cataract of left eye AGE-RELATED NUCLEAR CAT 3+ NS, 1+PSC Procedures GA XCAPSL CTRC RMVL INSJ IO LENS PROSTH W/O ECP EYE CATARACT EMULSIFICATION IOL IMPLANT Elvira Scherer, DO [address] [place] [address] [facility] [phone] [place] [id number] Ref[facility]Status[facility] DateExpiration DateVisits RequestedVisits [id number] / ProceduresReferred By ContactReferred To Contact Diagnoses 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 [H25.811] Procedures GA XCAPSL CTRC RMVL INSJ IO LENS PROSTH W/O ECP EYE CATARACT EMULSIFICATION IOL IMPLANT Elvira Scherer, DO [address] [place] [address] [facility] [id number] [place] [phone] Referral IDStatusC[facility] DateExpiration DateVisits RequestedVisits [id number] Scheduled Active and Recently Administ ered Medications (unrecognized section and content) Medication Order11/29//// phenylephrine (MYDFRIN) 2.5 % ophthalmic solution 1 drop 1 drop, Left Eye, SEE ADMIN INSTRUCTIONS, Starting on Thu12/01/22 at 0809, Until Discontinued, To operative eye(s) for 3-5 doses every 5 minutes, starting 30 minutes prior to surgery until dilated, RPh - enter number of doses based on parameters defined by the physician in the admin. comments., Pre-op (day of surgery) * 0829 (Given - Provider: Lorena Lee RN) * 0837 (Given - Provider: Lorena Lee RN) * 0847 (Given - Provider: Lorena Lee RN) proparacaine (ALCAINE) 0.5 % ophthalmic solution 1 drop 1 drop, Left Eye, SEE ADMIN INSTRUCTIONS, Starting on Thu12/01/22 at 0807, Until Discontinued, Intothe operative eye(s) every 5 minutes for PRN doses starting 30 minutes prior to surgery., Pre-op (day of surgery) * 0828 (Given - Provider: Lorena Lee RN) * 0836 (Given - Provider: Lorena Lee RN) * 0846 (Given - Provider: Lorena Lee RN) sodium chloride flush 0.9 % injection 5-40 mL 5-40 mL, IntraVENous, EVERY 12 HOURS SCHEDULED (2 times per day), First dose on Thu12/01/22 at 1000, Until Discontinued, For Line Patency: Peripheral IV = 5 mL; Midline or Central Line = 10 mL/lumen.If following IV push medication, administer flush at same rate as the IV push. Flush volume is determined by type of infusion therapy being given. For non-viscous solutions use: Peripheral IV = 5 mL Midline or Central Line = 10 mL/lumen For viscous solutions (i.e. blood components, parenteral nutrition, contrast media, or after obtaining blood sample) use: Peripheral IV = 10 mL Midline or CentralLine = 20 mL/lumen, Post-op * 1000 (Due) * 2100 (Due) sodium chloride flush 0.9 % injection 5-40 mL 5-40 mL, IntraVENous, EVERY 12 HOURS SCHEDULED (2 times per day), First dose on Thu12/01/22 at 0900, Until Discontinued, For Line Patency: Peripheral IV = 5 mL; Midline or Central Line = 10 mL/lumen.If following IV push medication, administer flush at same rate as the IV push. Flush volume is determined by type of infusion therapy being given. For non-viscous solutions use: Peripheral IV = 5 mL Midline or Central Line = 10 mL/lumen For viscous solutions (i.e. blood components, parenteral nutrition, contrast media, or after obtaining blood sample) use: Peripheral IV = 10 mL Midline or CentralLine = 20 mL/lumen, Pre-op (day of surgery) * 0900 (Due) * 2100 (Due) tetracaine (TETRAVISC) 0.5 % ophthalmic solution 1 drop 1 drop, Left Eye, SEE ADMIN INSTRUCTIONS, Starting on Thu12/01/22 at 0807, Until Discontinued, Intothe operative eye(s) every 5 minutes for PRN doses starting 30 minutes prior to surgery., Pre-op (day of surgery) * 0904 (Given - Provider: Scot Bryant RN) tropicamide (MYDRIACYL) 1 % ophthalmic solution 1 drop 1 drop, Left Eye, SEE ADMIN INSTRUCTIONS, Starting on Thu12/01/22 at 0807, Until Discontinued, To operative eye(s) for 3-5 doses every 5 minutes, starting 30 minutes prior to surgery until dilated, RPh - enter number of doses based on parameters defined by the physician in the admin. comments., Pre-op (day of surgery) * 0830 (Given - Provider: Lorena Lee RN) * 0837 (Given - Provider: Lorena Lee, YUE) * 0847 (Given - Provider: Lorena Lee, YUE) Medication Order11/29//// 0.9 % sodium chloride infusion IntraVENous, at 125 mL/hr, CONTINUOUS, Starting on Thu12/01/22 at 0830, Pre-op (day of surgery) * 0830 (Due) lactated ringers IV soln infusion IntraVENous, at 100 mL/hr, CONTINUOUS, Starting on Thu12/01/22 at 0830, Pre-op (day of surgery) * 0846 (New Bag - Provider: Lorena Lee RN) * 1005 (Stopped - Provider: aKdie Mckinney RN) Medication Order11/29/// 0.9 % sodium chloride infusion IntraVENous, at [...] less into rate field of order., Pre-op (dayof surgery) balanced salts (BSS) 500 mL, EPINEPHrine 0.5 mg (CANCELED) PRN, Starting on Thu12/01/22 at 0916, Intra-op * 0916 (Given - Provider: Elvira Scherer DO) lidocaine PF 1 % injection (CANCELED) PRN, Starting on Thu12/01/22 at 0916, Until Thu12/01/22 at 0932, Intra-op * 0916 (Given - Provider: Elvira Scherer DO) sodium chloride flush 0.9 [...] For viscous solutions (i.e. blood components, parenteral nutrition,contrast media, or after obtaining blood sample) use: Peripheral IV = 10 mL Midline or Central Line= 20 mL/lumen, Post-op sodium chloride flush 0.9 [...] For viscous solutions (i.e. blood components, parenteral nutrition,contrast media, or after obtaining blood sample) use: Peripheral IV = 10 mL Midline or Central Line= 20 mL/lumen, Pre-op (day of surgery) tetracaine (TETRAVISC) 0.5 % ophthalmic solution (CANCELED) PRN, Starting on Thu12/01/22 at 0916, Until Thu12/01/22 at 0932, Intra-op * 0916 (Given - Provider: Elvira Scherer DO) Medication Order// phenylephrine (MYDFRIN) 2.5 % ophthalmic solution 1 drop 1 drop, Right Eye, SEE ADMIN INSTRUCTIONS, Starting on Thu01/19/23 at 0938, Until Discontinued, To operative eye(s) for 3-5 doses every 5 minutes, starting 30 minutes prior to surgery, RP - enter number of doses based on parameters defined by the physician in the admin. comments., Pre-op (day ofsurgery) * 0957 (Given - Provider: Annabelle Oneal RN) * 1002 (Given - Provider: Annabelle Oneal RN) * 1011 (Given - Provider: Annabelle Oneal RN) proparacaine (ALCAINE) 0.5 % ophthalmic solution 1 drop 1 drop, Right Eye, SEE ADMIN INSTRUCTIONS, Starting on Thu01/19/23 at 0938, Until Discontinued, Into the operative eye(s) every 5 minutes for PRN doses starting 30 minutes prior to surgery., Pre-op (day of surgery) * 0957 (Given - Provider: Annabelle Oneal RN) * 1002 (Given - Provider: Annabelle Oneal RN) * 1011 (Given - Provider: Annabelle Oneal RN) sodium chloride flush 0.9 % injection 5-40 mL 5-40 mL, IntraVENous, EVERY 12 HOURS SCHEDULED (2 times per day), First dose on Thu01/19/23 at 1000, Until Discontinued, For Line Patency: Peripheral IV = 5 mL; Midline or Central Line = 10 mL/lumen.If following IV push medication, administer flush at same rate as the IV push. Flush volume is determined by type of infusion therapy being given. For non-viscous solutions use: Peripheral IV = 5 mL Midline or Central Line = 10 mL/lumen For viscous solutions (i.e. blood components, parenteral nutrition, contrast media, or after obtaining blood sample) use: Peripheral IV = 10 mL Midline or CentralLine = 20 mL/lumen, Pre-op (day of surgery) * 1017 (Not Given - Provider: Annabelle Oneal RN - Reason: IV Fluid Infusing) * 2100 (Due) sodium chloride flush 0.9 % injection 5-40 mL 5-40 mL, IntraVENous, EVERY 12 HOURS SCHEDULED (2 times per day), First dose on Thu01/19/23 at 1115, Until Discontinued, For Line Patency: Peripheral IV = 5 mL; Midline or Central Line = 10 mL/lumen.If following IV push medication, administer flush at same rate as the IV push. Flush volume is determined by type of infusion therapy being given. For non-viscous solutions use: Peripheral IV = 5 mL Midline or Central Line = 10 mL/lumen For viscous solutions (i.e. blood components, parenteral nutrition, contrast media, or after obtaining blood sample) use: Peripheral IV = 10 mL Midline or CentralLine = 20 mL/lumen, Post-op * 1115 (Due) * 2100 (Due) tetracaine (TETRAVISC) 0.5 % ophthalmic solution [...] minutes, starting 30 minutes prior to surgery, RP - enter number of doses based on parameters defined by the physician in the admin. comments., Pre-op (day ofsurgery) * 0957 (Given - Provider: Annabelle Oneal RN) * 1002 (Given - Provider: Annabelle Oneal RN) * 1011 (Given - Provider: Annabelle Oneal RN) Medication Order// 0.9 % sodium chloride infusion IntraVENous, at 125 mL/hr, CONTINUOUS, Starting on Thu01/19/23 at 1000, Pre-op (day of surgery) * 1017 (Not Given - Provider: Annabelle Oneal RN - Reason: IV Fluid Infusing) lactated ringers IV soln infusion IntraVENous, at 100 mL/hr, CONTINUOUS, Starting on Thu01/19/23 at 1000, Pre-op (day of surgery) * 1012 (New Bag - Provider: Annabelle Oneal RN) * 1025 (Paused - Provider: PILI Colmenares CRNA - Comment: Switch to gravity) * 1026 (Restarted - Provider: PILI Colmenares GROCERY STORE ASSOCIATE) * 1051 (Stopped - Provider: Paty Valencia APRN - GROCERY STORE ASSOCIATE) Medication Order/ 0.9 % sodium chloride infusion IntraVENous, at [...] less into rate field of order., Pre-op (dayof surgery) 0.9 % sodium chloride infusion IntraVENous, [...] PRN, Starting on Thu01/19/23 at 1034, Intra-op * 1034 (Given - Provider: Elvira Scherer DO) lidocaine PF 1 % injection (CANCELED) PRN, Starting on Thu01/19/23 at 1034, Until Thu01/19/23 at 1047, Intra-op * 1034 (Given - Provider: Elvira Scherer DO) sodium chloride flush 0.9 [...] For viscous solutions (i.e. blood components, parenteral nutrition,contrast media, or after obtaining blood sample) use: Peripheral IV = 10 mL Midline or Central Line= 20 mL/lumen, Pre-op (day of surgery) sodium [...] For viscous solutions (i.e. blood components, parenteral nutrition,contrast media, or after obtaining blood sample) use: Peripheral IV = 10 mL Midline or Central Line= 20 mL/lumen, Post-op tetracaine (TETRAVISC) 0.5 % ophthalmic solution (CANCELED) PRN, Starting on Thu01/19/23 at 1035, Until Thu01/19/23 at 1047, Intra-op * 1035 (Given - Provider: Elvira Scherer DO) Care Teams (unrecognized sec tion and content) Team MemberRelationshipSpecialtyStart DateEnd Date Ryan Arevalo MD [address] [place] [address] PCP - GeneralFamily Medicine10/22/18 FOR RECORDS PERTAINING TO PATIENTS WHO ARE [...] BE BASED ON THE PRIMARY CLINICAL RECORDS. [facility]. provides no warranty or guarantee of the accuracy or completeness of information in this document.
--- NOTE | 2025-04-03 08:18 | XR_ITS ---
[facility] [place] [id number] Patient Name: LOU MCGUIRE MRN: [id number] date: 1960 Sex: F Assigned Patient Location: LAB Current Patient Location: LAB Accession/Order Number: [id number] Exam Date: 04/03/2025 08:52 Report Date: 04/03/2025 09:29 At the request of: RYAN LEMOS MD Procedure: XR shoulder RT min 2V RIGHT SHOULDER - 3 views CLINICAL HISTORY: right shoulder pain the past month, without injury COMPARISON: None AP, Y and Grashey views were obtained. There is osteopenia. There is no acute fracture or dislocation. Minor degenerative changes are seen at the acromioclavicular and inferior glenohumeral joints as well as the greater tuberosity. There are no significant soft tissue abnormalities. XR/XR shoulder RT min 2V IMPRESSION: OSTEOPENIA AND MINOR DEGENERATIVE CHANGE. NO ACUTE BONY FINDINGS. Impression dictated by: Lisandra Shin M.D. 04/03/2025 9:29 AM Dictation Location: [place] [address] Electronically authenticated by: [id number] Y Date: 04/03/2025 09:29
[2025-04-03 08:36] LABS: Hematocrit 47.1 % (36.0-48.0); Hemoglobin 15.5 g/dL (12.0-16.0); Immature Granulocytes Abs Auto 0.03 10^3/uL (0.00-0.03); Immature Granulocytes Pct Auto 0.4 % (0.0-0.5); Lymphocytes Absolute Auto 2.6 10^3/uL (1.2-3.8); Mean Corpuscular HGB Conc 32.9 g/dL (29.9-35.2); Mean Corpuscular Hemoglobin 31.2 pg (26.7-34.0); Mean Corpuscular Volume 94.8 fL (81.0-99.0); Platelet Count 211 10^3/uL (150-450); Red Blood Count 4.97 10^6/uL (4.20-5.40); White Blood Count 8.5 10^3/uL (4.0-11.0)
[2025-04-03 09:15] LABS: Alanine Aminotransferase 35 U/L (14-59); Albumin Globulin Ratio 1.3; Albumin Level 3.9 g/dL (3.4-5.0); Alkaline Phosphatase 73 U/L (46-116); Anion Gap 13.2; Aspartate Amino Transferase 23 U/L (15-37); Blood Urea Nitrogen 13.0 mg/dL (7.0-18.0); Calcium 9.5 mg/dL (8.5-10.1); Carbon Dioxide 30.1 mmol/L (21.0-32.0); Chloride 104 mmol/L (98-107); Cholesterol 156 mg/dL (<=200); Estimated GFR (African America >60 (>=60 mL/min/1.73m^2); Estimated GFR (Non-African Ame >60 (>=60 mL/min/1.73m^2); Free T3 2.65 pg/mL (2.18-3.98); Globulin 3.1 g/dL; Glucose 101 mg/dL (74-106); HDL Cholesterol 51 mg/dL (40-60); Potassium 4.3 mmol/L (3.5-5.1); Sodium 143 mmol/L (136-145); Thyroid Stimulating Hormone 1.280 uIU/mL (0.358-3.740); Total Protein 7.0 g/dL (6.4-8.2); Triglycerides 118 mg/dL (<=150); VLDL CHOLESTEROL 23.6 mg/dL
[2025-04-03 09:27] LABS: Iron 69.0 ug/dL (50.0-170.0)
== END 2025-04-03 07:31 | disposition home or self-care (01) ==
LOC: LAB 07:33
PROVIDERS: PCP Family Medicine; Visit Provider Family Medicine
DX: R07.9 Chest pain, unspecified (principal); E03.9 Hypothyroidism, unspecified; M25.511 Pain in right shoulder; M81.0 Age-related osteoporosis without current pathological fracture; I10 Essential (primary) hypertension; E78.5 Hyperlipidemia, unspecified; R73.09 Other abnormal glucose; Z12.12 Encounter for screening for malignant neoplasm of rectum; D64.9 Anemia, unspecified; D50.9 Iron deficiency anemia, unspecified; M85.88 Other specified disorders of bone density and structure, other site
CPT/HCPCS: 36415; 73030; 80053; 80061; 82306; 83036; 83540; 84436; 84443; 84481; 85025

== ENCOUNTER 2025-04-04 07:00 | Outpatient (REF) | payer MEDICARE, SELFPAY | END 2025-04-04 07:01 | disposition home or self-care (01) | LOC: LAB 07:00 | PROVIDERS: PCP Family Medicine; Visit Provider Family Medicine | DX: R07.9 Chest pain, unspecified (principal); E03.9 Hypothyroidism, unspecified; M25.511 Pain in right shoulder; E78.5 Hyperlipidemia, unspecified; R73.09 Other abnormal glucose; Z12.12 Encounter for screening for malignant neoplasm of rectum; D64.9 Anemia, unspecified; E55.9 Vitamin D deficiency, unspecified; I10 Essential (primary) hypertension; D50.9 Iron deficiency anemia, unspecified | CPT/HCPCS: G0328 ==

== ENCOUNTER 2025-04-04 07:47 | Outpatient (OUT) | payer MEDICARE, SELFPAY ==
--- OUTSIDE RECORDS SUMMARY | 2025-03-28 06:00 | XMS_ITS ---
Author Organization [facility] in [place] Address [address] [place] [address] Care Team Providers Care Sales Consultant Insurance Name Role Phone Radames Arevalo Primary Care Provider [phone] Allergies No Known Allergies REASON FOR VISIT [...] alcohol in the p ast year? No Dflbkm0QohmnbsslalrzfVyjpnuxc Problems Problem Type SNOMED Code ICD Code Onset Dates Problem Status W/U Status Risk Notes Problem Hypertension (28564550) Hypertension (I10 ) ActiveconfirmedProblemOsteoporosis (86024525)Osteoporosis (M81.0)Activeconfirmed Vital Signs Weight 94.6 lbs 03/28/2025 Height 61 in 03/28/2025 Blood pressure systolic 106 mm Hg 03/28/20 25 Blood pressure diastolic 58 mm Hg 025 BMI 17.87 kg/m2 03/28/2025 Encounters Encounter Location Date Provider Diagnosis [facility] [address] [place] [address] 03/28/2025 Radames Hoy Chest pain R07.9 ; [...] Dacia FINLEY JDOB: [birth year] (64 yo F)Acc No.[id number]:03/28/2025 Progress Note Patient: Dacia NEFF :?Enzo SophieCain Arevalo ([facility]), MDDOB:1960???Age: 64 Y???Sex:FemaleDate:03/28/2025Phone:[phone]:[address], [id number] In:09:53 AM ESTCheck Out:10:35 AM EST Subjective: [...] Problem List S06.5X9A Subdural hematoma Modified On:12/16/2018W/U Status:rjjyginamH35.5Presence of coronary angioplasty implant and graft Modified On:12/05/2022W/U Status:chyhvaihcN23.11Age-related nuclear cataract, right eye Modified On:01/20/2023W/U Status:kkhvborvjS83.9Chest pain Modified On:06/16/2023 Status:lynriheidM01.1Solitary pulmonary nodule Modified On:09/29/2023 Status:ogyoeurjbG52.89Abnormal findings on diagnostic imaging of other specified body structures Modified On:10/08/2023U Status:zxcswvclwW82.00Well adult Modified On:04/13/2024 Status:mrjbfgoakE70.9Hypothyroid Modified On:04/18/2024 Status:kptatfdsvG94.0Osteoporosis Modified On:03/28/2025 Status:odexqvbjwY57Kxnlkakimopv Modified On:03/28/2025 Status:confirmed * Medical History: * [...] 1 TABLET BY MOUTH ONCE DAILY Trelegy Ellipta(Zegcoyccycw-Ofuqkctaf-Mtmdxv) 100-62.5-25 MCG/ACT Aerosol Powder Breath Activated 1 [...] TABLET BY MOUTH ONCE DAILY Taking Trelegy Ellipta(Rjabnptvzzn-Eghajtttu-Vtxztq) 100-62.5-25 MCG/ACT Aerosol Powder Breath Activated 1 [...] (Check Out) true * Provider: Porter Arevalo ([facility])MD Date: Generated for Printing/Faxing/eTransmitting on:?04/04/2025 07:52 AM EDT History and Physical Notes * [...]
--- OUTSIDE RECORDS SUMMARY | 2025-04-04 07:52 | XMS_ITS | Clinical Summary ---
Author Organization [facility] Address [address], [address] [place] [address] Care Team Providers Care Systems Lead Name Role Phone Enzo Arevalo MD Primary Care Provider [phone] Allergies No known active allergies Medications MedicationSigDispense [...] tablet by mouth daily 30 tablet Active majsdbxinwg-loqivdkcj-crufsz (TRELEGY ELLIPTA) 100-62.5-25 MCG/ACT AEPB inhaler Inhale 1 puff into the lungs dailyActive citalopram (CELEXA) 20 MG tablet Take 1 tablet by mouth dailyActive alendronate (FOSAMAX) 70 MG tablet Take 1 tablet by mouth every 7 daysActive Multiple Vitamins-Minerals (VITAMIN D3 COMPLETE PO) Take by mouthActive aspirin 81 MG chewable tablet Take 1 tablet by mouth dailyActive Active Problems ProblemNoted DateDiagnosed DateSubdural istafjpi68/17/2019 Resolved Problems ProblemNoted DateDiagnosed DateResolved DateAge-related nuclear cataract of right eye/ge-related nuclear cataract of left eye11/30/2022 12/01/2022 Social History Tobacco UseTypesPacks/DayYears UsedDateSmoking Tobacco: Every FifFpvghrleeu348 Smokeless Tobacco: Never Tobacco Cessation:Ready to Q uit: Not Asked; Counseling Given: Not Answered Alcohol UseStandard Drinks/WeekCommentsNever0 (1 standard drink = 0.6 oz pure alcohol)AUDIT-CAnswerDate RecordedFrequency of Alcohol ConsumptionNever 10/23/2018Average Number of DrinksNot on file10/23/2018Frequency of Binge DrinkingNot on file10/23/2018Interpersonal Safety Domain Source: IP Abuse ScreeningAnswerDate RecordedRead-Only, Retired: Physical NtpmiSjaqhk23/14/2023 Read-Only, Retired: Verbal LuhmcHsgwov43/14/2023Read-Only, Retired: Emotional oxpnlZbhelx84/14/2023Read-Only, Retired: Financial HearfCfethi37/14/2023Read- Only, Retired: Sexual pfgswZzuzef02/14/2023CommentsNoSex and Gender InformationValueDate RecordedSex Assigned at BirthNot on fileLegal SexFemale 07/18/2012 11:41 AM ESTGender IdentityNot on fileSexual OrientationNot on file Last Filed Vital Signs Vital SignReadingTime TakenCommentsBlood Xoykqriv794/9201/19/2023 11:15 AM EDT Kbmlb538001/19/2023 11:15 AM GDPNbconvalhgf93.1 ??C (96.9 ??F)01/19/2023 10:48 AM EDTRespiratory Bnls289301/19/2023 11:15 AM EDTOxygen Ysfbffhnli30%01/19/2023 11:15 AM EDTInhaled Oxygen Concentration--Yvwpcj67.6 kg (105 lb)01/19/2023 9:50 AM EDT Wyccfi979.9 cm (5' 1 )01/19/2023 9:50 AM EDTBody Mass Index19.8401/19/2023 9:50 AM EDT Plan of Treatment Health MaintenanceDue DateLast DoneCommentsDepression Wlpfea5808/30/1971HIV screen 08/29/1974Hepatitis C rtiivp7808/29/1977DTaP/Tdap/Td vaccine (1 - Tdap)08/29/1978 Pneumococcal 50+ years Vaccine (1 of 2 - PCV)08/29/1978Breast cancer screen 08/30/19997987Fdnmiqnbwhg93/24/2005Colorectal Cancer Vqwqcp1208/29/2004FIT/FOBT: Average risk08/29/2004Fecal-DNA (Cologuard): Average risk08/29/2004 Sigmoidoscopy/CT mziattzcfqng57/24/2005Lung Cancer Screening &/or Counseling 08/29/2009Shingles vaccine (1 of 2)08/29/2009DEXA (modify frequency per FRAX score)08/29/2014Respiratory Syncytial Virus (RSV) or age 60 yrs+ (1 - Risk 60-74 years 1-dose series)08/30/20199366Tcytom06/20/Flu vaccine (#1)5COVID-19 Vaccine ( - season)2025Hepatitis A [...] 22+ Diopt 6x12.5 Mm Acryl Envista - [id number] Implanted:Qty: 1 on 12/01/2022 [facility]: EyeBAUSCH AND LOMB-WD08/05/[id number] / [id number] / Lens Intraocular Bcnvx 22+ Diopt 6x12.5 Mm Acryl Envista - [id number] Implanted:Qty: 1 on 01/19/2023 [facility]Right: EyeBAUSCH AND LOMB-11/05/[id number] / [id number] / Procedures Procedure NamePriorityDate/TimeAssociated DiagnosisCommentsLIPID PANELRoutine 10/25/2018 6:36 AM EDT from Last 3 Months or Most Recently Relevant to Health Maintenance Results * (ABNORMAL) Lipid Panel (10/25/2018 6:36 AM EDT)ComponentValueRef RangeTest MethodAnalysis TimePerformed AtPathologist UgifnvrrzRgqstzpaubj959<200 mg/dL 10/25/2018 6:36 AM EDTMERCY LABORATORIESComment: Cholesterol Guidelines: <200 Desirable 200-240 ??Borderline >240 Undesirable HDL37(L)>40 mg/dL10/25/2018 6:36 AM EDTMERCY LABORATORIESComment: HDL Guidelines: <40 Undesirable 40-59 ?Borderline >59 Desirable LDL Oecssdgbfzk762 - 130 mg/dL10/25/2018 6:36 AM EDTMERCY LABORATORIESComment: [...] Ahmed MDCHEMISTRY ORDERABLESFinal ResultPerforming OrganizationAddressCity/State/ZIP CodePhone Number [facility] [address] [place] [address], [facility] [phone] from Last 3 Months or Most Recently Relevant to Health Maintenance Insurance Advance Directives * Full Code (Latest Code Status on File) Date ActivatedDate InactivatedComments01/19/2023 9:38 AM01/19/2023 1:37 PM * Full Code Date ActivatedDate InactivatedComments12/01/2022 8:08 AM12/01/2022 12:28 PM * Full Code Date ActivatedDate InactivatedComments10/22/2018 11:13 PM10/26/2018 6:13 PM Care Teams Team MemberRelationshipSpecialtyStart DateEnd Date Enzo Arevalo MD [address] [place] [address] PCP - GeneralFamily Medicine10/22/18
--- OUTSIDE RECORDS SUMMARY | 2025-04-04 07:52 | XMS_ITS | Clinical Summary ---
Author Organization [facility] Address [address] [place] [address] Care Team Providers Care Daily Release And Dupe Printer Name Role Phone Rayray Winters Primary Care Provider Unavailabl e Social History Tobacco UseTypesPacks/DayYears UsedDateSmoking Tobacco: Never Assessed CommentsUnknownSex and Gender InformationValueDate RecordedSex Assigned at Not on fileLegal VmhUcyncv07/02/2012 9:11 AM ESTGender IdentityNot on fileSexual OrientationNot on file Plan of Treatment Health MaintenanceDue DateLast DoneCommentsAnxiety Qkgwjwpii85/24/1978Depression Cgavrsbqg70/24/1978HIV Gawdoeekz78/24/1978Hepatitis C Ztnifpkcb48/24/1978 DTaP,Tdap,Td Vaccine (1 - Tdap)08/29/1978Mammogram Kchanvayk61/24/2000CT Txubdeqdjlfi77/24/2005Cologuard (FIT-DNA)08/29/20049040Agfpmmibgca66/24/2005 Colorectal Cancer Zlcbzemhz76/24/2005Diabetes Yrenlvzla20/24/2005Fecal Occult Blood08/29/2004Lipid Anhpqykqc44/24/6360Lszancofsucog18/24/2005Pneumococcal Vaccine: 50+ (1 of 1 - PCV)08/29/2009Shingrix Vaccine (1 of 2)08/29/2009dvance Directive Dlnnvkfkyd12/24/2025Bone Density Dntmybkua78/24/2025ovid-19 Vaccine (1 - 2024- season)2025Influenza Vaccine (#1)2025RSV Vaccine (1 - 1-dose 75+ series)08/29/2034 Insurance * Guarantor: Lou Finley TypeRelation to PatientDate of BirthPhone Billing AddressPersonal/IcbryzXcxh29/24/1961 [address] [address] Care Teams Team MemberRelationshipSpecialtyStart DateEnd Date Rayray Winters [address] [place], [place] [address] PCP - [facility]09/15/00
--- OUTSIDE RECORDS SUMMARY | 2025-04-04 07:52 | XMS_ITS | Clinical Summary ---
Author Organization [facility] Address [address] [place] [address] Care Team Providers Care Sports Umpire Name Role Phone Unavailable Primary Care Provider Unavailabl e Social History Tobacco UseTypesPacks/DayYears UsedDateSmoking Tobacco: Never Assessed CommentsUnknownSex and Gender InformationValueDate RecordedSex Assigned at Not on fileLegal MvtGwbcgx57/30/2022 12:02 AM EDTGender IdentityNot on file Sexual OrientationNot on file Last Filed Vital Signs Vital SignReadingTime TakenCommentsBlood Apruzhmu400/8810 9:49 AM EDT Pulse--Temperature--Respiratory Rate--Oxygen Pjsomvgkeq60%03/13/2021 9:47 AM EDT Inhaled Oxygen Concentration--Bejzjz86.9 kg (110 lb)03/13/2021 9:46 AM EDTHeight 165.1 cm (5' 5 )03/13/2021 9:46 AM EDTBody Mass Index18.310 9:46 AM EDT Plan of Treatment Not on file
--- OUTSIDE RECORDS SUMMARY | 2025-04-04 07:53 | XMS_ITS | Patient Health Record ---
Author Organization [facility] in [place] Address [address] [place] [address] Care Team Providers Care Vending Machine Technician Name Role Phone Radames Lemos Primary Care Provider Allergies No Known Allergies Results Component Value Reference Range Notes GLYCOHEMOGLOBIN A1C Reviewed date:04/18/2024 01:12:26 PM Interpretation: Performing Lab: Notes/Report: [facility] , Glycohemoglobin A1C 5.3 4.5-6.2 % ADA RECOMMENDED LIMIT 4.0 - 6.0 ADA THERAPEUTIC TARGET < 7.0 ACTION SUGGESTED > 7.0 Estimated Average Glucose 105 Performing Lab:see noteML - [facility] LBCBC AUTO DIFF Reviewed date:04/03/2025 06:46:17 PM Interpretation: Performing Lab: Notes/Report: [facility] ,White Blood Count8.54.0-11.0 10 3/uLRed Blood Count4.974.20-5.40 10 6/uL Vyhqzaicjo48.512.0-16.0 g/eRUgcgxvrhib18.136.0-48.0 %Mean Corpuscular Ktnsdb05.8 81.0-99.0 fLMean Corpuscular Jbkghaexbx09.226.7-34.0 pgMean Corpuscular HGB Conc 32.929.9-35.2 g/dLRed Cell Distribution Width13.011.0-15.0 %Platelet Qspjb112 150-450 10 3/uLMean Platelet Olqzxu35.99.5-13.5 fLNeutrophils Percent Auto59.0 43.0-75.0 %Lymphocytes Percent Auto30.220.5-60.0 %Monocytes Percent Auto7.71.7- 12.0 %Eosinophils Percent Auto2.00.9-7.0 %Basophils Percent Auto0.70.2-2.0 % Immature Granulocytes Pct Auto0.40.0-0.5 %Neutrophils Absolute Auto5.01.4-6.5 10 3/uLLymphocytes Absolute Auto2.61.2-3.8 10 3/uLMonocytes Absolute Auto0.70.3-0.8 10 3/uLEosinophils Absolute Auto0.20.0-0.7 10 3/uLBasophils Absolute Auto0.10.0- 0.1 10 3/uLImmature Granulocytes Abs Auto0.030.00-0.03 10 3/uLPerforming Lab:see note - [facility] LBGLYCOHEMOGLOBIN A1C Reviewed date:04/03/2025 06:46:17 PM Interpretation: Performing Lab: Notes/Report: [facility] ,Glycohemoglobin A1C5.74.5-6.2 % ADA RECOMMENDED LIMIT 4.0 - 6.0 ADA THERAPEUTIC TARGET < 7.0 ACTION SUGGESTED > 7.0 Estimated Average Crgpkbz475Fvvqfgifyf Lab:see note - [facility] LB IRON Reviewed date:04/03/2025 06:46:17 PM Interpretation: Performing Lab: Notes/Report: [facility] ,Iron69.050.0-170.0 ug/dLPerforming Lab:see note - [facility] LBXR shoulder RT min 2V Reviewed date:04/03/2025 06:46:17 PM Interpretation: Performing Lab: Notes/Report: Source Facility: [facility]-[address] [place] [address] [place] [address] XRay Report Signed Patient: LOU FINLEY MR#: [id number] : 1960 Acct:[id number] Age/Sex: 64 / F ADM Date: 04/03/25 Loc: LAB Attending Dr: Ryan Lemos M.D. Ordering Physician: Ryan Lemos M.D. Date of Service: 04/03/25 Procedure(s): XR shoulder RT min 2V Accession Number(s): [id number] cc: Ryan Lemos M.D. The [place] [address] Patient Name: LOU FINLEY MRN: [id number] date: 1960 Sex: F Assigned Patient Location: LAB Current Patient Location: LAB Accession/Order Number: [id number] Exam Date: 04/03/2025 08:52 Report Date: 04/03/2025 09:29 At the request of: RYAN LEMOS MD Procedure: XR shoulder RT min 2V RIGHT SHOULDER - 3 views CLINICAL HISTORY: right shoulder pain the past month, without injury COMPARISON: None AP, Y and Grashey views were obtained. There is osteopenia. There is no acute fracture or dislocation. Minor degenerative changes are seen at the acromioclavicular and inferior glenohumeral joints as well as the greater tuberosity. There are no significant soft tissue abnormalities. XR/XR shoulder RT min 2V IMPRESSION: OSTEOPENIA AND MINOR DEGENERATIVE CHANGE. NO ACUTE BONY FINDINGS. Impression dictated by: Lisandra Shin M.D. 04/03/2025 9:29 AM Dictation Location: [place] [address] Electronically authenticated by: [id number] Y Date: 04/03/2025 09:29 Dictated By: Lisandra Shin M.D. Signed By: 04/03/25931 DD/ 8 TD/TT: Fiberglass Container Winding Operator:TSH Reviewed date:04/18/2024 01:12:26 PM Interpretation: Performing Lab: Notes/Report: [facility] ,Thyroid Stimulating Hormone7.2750.358-3.740 uIU/mLPerforming Lab:see noteML - [facility] LBT4 Reviewed date:04/18/2024 01:12:26 PM Interpretation: Performing Lab: Notes/Report: [facility] ,T4 Thyroxine7.704.80-13.90 ug/dLPerforming Lab:see noteML - [facility] LBPROF 14(COMP METB) Reviewed date:04/18/2024 01:12:26 PM Interpretation: Performing Lab: Notes/Report: [facility] ,Tajwvh945889-784 mmol/LPotassium4.53.5-5.1 mmol/ROjtyxafx67657-449 mmol/LCarbon Aabkapg16.721.0-32.0 mmol/LAnion Gap13.9Pekpxtt1052-896 mg/dLBlood Urea Nitrogen 13.07.0-18.0 mg/dLCreatinine1.070.55-1.02 mg/dLEstimated GFR ( Eloise>60 >=60 mL/min/1.73m 2Estimated GFR (Non- Ame52>=60 mL/min/1.73m 2BUN Creatinine Ratio12.4Gokarka4.58.5-10.1 mg/dLBilirubin Total0.30.2-1.0 mg/dL Aspartate Amino Joxxrvfyxba7212-69 U/LAlanine Eygtxdbyxlzvktlb3801-80 U/L Alkaline Rmcxaofpxjc3785-409 U/LTotal Protein6.36.4-8.2 g/dLAlbumin Level3.33.4- 5.0 g/dLGlobulin3.0Albumin Globulin Ratio1.1Performing Lab:see noteML - [facility] LBLIPID PROFILE Reviewed date:04/18/2024 01:12:26 PM Interpretation: Performing Lab: Notes/Report: [facility] ,Dvnhansqzzdit780<=150 mg/pOZnfjzdsznvc158<=200 mg/dLHDL Vzixdxfsdea9577-66 mg/dL > or =60 mg/dl - LOW CARDIOVASCULAR RISK <40 mg/dl - HIGH CARDIOVASCULAR RISK LDL Cholesterol Lyymfkfbcq544.6 <100 mg/dl OPTIMAL 100-129 mg/dl NEAR OR ABOVE OPTIMAL 130-159 mg/dl BORDERLINE HIGH 160-189 mg/dl HIGH >190 mg/dl VERY HIGH VLDL LQOWEWMZKOR29.4Chol HDL Ratio3.8 3.3 - 4.4 LOW RISK 4.4 - 7.1 AVERAGE RISK 7.1 - 11.0 MODERATE RISK >11.0 HIGH RISK Performing Lab:see noteML - [facility] LBIRON Reviewed date:04/18/2024 01:12:26 PM Interpretation: Performing Lab: Notes/Report: [facility] ,Iron65.050.0-170.0 ug/dLPerforming Lab:see noteML - [facility] LB FREE T3 Reviewed date:04/18/2024 01:12:26 PM Interpretation: Performing Lab: Notes/Report: [facility] ,Free T32.782.18-3.98 pg/mLPerforming Lab:see noteML - [facility] LB CBC AUTO DIFF Reviewed date:04/18/2024 01:12:26 PM Interpretation: Performing Lab: Notes/Report: [facility] ,White Blood Count9.14.0-11.0 10 3/uLRed Blood Count4.634.20-5.40 10 6/uL Tkhvvvppqf26.712.0-16.0 g/jLScjhvmfkhf61.836.0-48.0 %Mean Corpuscular Dxwndp69.6 81.0-99.0 fLMean Corpuscular Jknvyqrpwh55.726.7-34.0 pgMean Corpuscular HGB Conc 33.629.9-35.2 g/dLRed Cell Distribution Width13.311.0-15.0 %Platelet Demko411 150-450 10 3/uLMean Platelet Mmjstq39.49.5-13.5 fLNeutrophils Percent Auto54.1 43.0-75.0 %Lymphocytes Percent Auto32.320.5-60.0 %Monocytes Percent Auto8.61.7- 12.0 %Eosinophils Percent Auto3.40.9-7.0 %Basophils Percent Auto1.30.2-2.0 % Immature Granulocytes Pct Auto0.30.0-0.5 %Neutrophils Absolute Auto4.91.4-6.5 10 3/uLLymphocytes Absolute Auto3.01.2-3.8 10 3/uLMonocytes Absolute Auto0.80.3-0.8 10 3/uLEosinophils Absolute Auto0.30.0-0.7 10 3/uLBasophils Absolute Auto0.10.0- 0.1 10 3/uLImmature Granulocytes Abs Auto0.030.00-0.03 10 3/uLPerforming Lab:see noteML - [facility] LBTSH Reviewed date:04/03/2025 06:46:17 PM Interpretation: Performing Lab: Notes/Report: [facility] ,Thyroid Stimulating Hormone1.2800.358-3.740 uIU/mLPerforming Lab:see noteML - [facility] LBT4 Reviewed date:04/03/2025 06:46:17 PM Interpretation: Performing Lab: Notes/Report: [facility] ,T4 Kgmfjzjxf72.904.80-13.90 ug/dLPerforming Lab:see noteML - [facility] LBPROF 14(COMP METB) Reviewed date:04/03/2025 06:46:17 PM Interpretation: Performing Lab: Notes/Report: [facility] ,Omvxrf686015-193 mmol/LPotassium4.33.5-5.1 mmol/YQjsqqquk56768-210 mmol/LCarbon Yricrtv53.121.0-32.0 mmol/LAnion Gap13.2Ceyebju88961-516 mg/dLBlood Urea Hllookpk57.07.0-18.0 mg/dLCreatinine0.810.55-1.02 mg/dLEstimated GFR ( Eloise>60>=60 mL/min/1.73m 2Estimated GFR (Non- Samantha>60>=60 mL/min/1.73m 2BUN Creatinine Ratio16.7Ckcphbs2.58.5-10.1 mg/dLBilirubin Total0.40.2-1.0 mg/dL Aspartate Amino Hvtdgsjcmye7727-10 U/LAlanine Khbhqsoolzwftozb5633-85 U/L Alkaline Mvkkbmttfvl9253-452 U/LTotal Protein7.06.4-8.2 g/dLAlbumin Level3.93.4- 5.0 g/dLGlobulin3.1Albumin Globulin Ratio1.3Performing Lab:see noteML - [facility] LBLIPID PROFILE Reviewed date:04/03/2025 06:46:17 PM Interpretation: Performing Lab: Notes/Report: [facility] ,Pbejdknuwhoxl227<=150 mg/mHCqqgfodtqpk606<=200 mg/dLHDL Fxtbxgsfelt4692-63 mg/dL > or =60 mg/dl - LOW CARDIOVASCULAR RISK <40 mg/dl - HIGH CARDIOVASCULAR RISK LDL Cholesterol Avsheiptst12.4 <100 mg/dl OPTIMAL 100-129 mg/dl NEAR OR ABOVE OPTIMAL 130-159 mg/dl BORDERLINE HIGH 160-189 mg/dl HIGH >190 mg/dl VERY HIGH VLDL JVLZJFQEBOQ23.6Chol HDL Ratio3.1 3.3 - 4.4 LOW RISK 4.4 - 7.1 AVERAGE RISK 7.1 - 11.0 MODERATE RISK >11.0 HIGH RISK Performing Lab:see noteML - [facility] LBFREE T3 Reviewed date:04/03/2025 06:46:17 PM Interpretation: Performing Lab: Notes/Report: [facility] Zach T32.652.18-3.98 pg/mLPerforming Lab:see noteML - [facility] LB TSH Reviewed date:05/11/2024 06:54:13 PM Interpretation: Performing Lab: Notes/Report: [facility] ,Thyroid Stimulating Hormone1.5380.358-3.740 uIU/mLPerforming Lab:see noteML - [facility] LBT4 Reviewed date:05/11/2024 06:54:13 PM Interpretation: Performing Lab: Notes/Report: [facility] ,T4 Thyroxine9.404.80-13.90 ug/dLPerforming Lab:see noteML - [facility] LBFREE T3 Reviewed date:05/11/2024 06:54:13 PM Interpretation: Performing Lab: Notes/Report: [facility] T32.262.18-3.98 pg/mLPerforming Lab:see noteML - [facility] LB MM tomosynthesis screening BI Reviewed date:04/27/2024 12:27:01 PM Interpretation: Performing Lab: Notes/Report: Source Facility: [place] [address] Mammography Report Signed Patient: LOU FINLEY MR#: [id number] : 1960 Acct:[id number] Age/Sex: 63 / F ADM Date: 04/27/24 Loc: MAMMO Attending Dr: Ryan Lemos M.D. Ordering Physician: Ryan Lemos M.D. Results: Date of Service: 04/27/24 Follow Up: Procedure(s): MM tomosynthesis screening BI Accession Number(s): [id number] cc: Ryan Lemos M.D. Patient Name: LOU FINLEY MR#: [id number] : 1960 Exam Date: 04/27/2024 Ordering Doctor: DR RYAN LEMOS . RADIOLOGY REPORT PROCEDURE: MM TOMOSYNTHESIS [...] Treatments None Family Cancers None LOCATION: [facility] BREAST COMPOSITION: The breasts are extremely [...] Dictated By: Danny Herron M.D. Signed By: 04/27/2433 DD/ 1 TD/TT: Fiberglass Container Winding Operator:VITAMIN D 25 [place] Reviewed date:04/03/2025 06:46:17 PM Interpretation: Performing Lab: Notes/Report: [facility] ,Vitamin D108.0 <20 ng/mL Vit D deficient 20-<30 ng/mL Vit D insufficient 30-100 ng/mL Vit D sufficient >100 ng/mL Potential Toxicity Performing Lab:see noteML - [facility] LB Reason For Referral No Information [...] mL Orally Once a day; Duration: 90 days03/22/2025tiveVitamin D3 125 MCG (5000 UT) 1 capsule Orally Once a day09/08/2022ctiveTrelegy Ellipta 100-62.5-25 MCG/ACT1 puff Inhalation Once a day; Duration: 30 days11/27/2022ctiveCitalopram Hydrobromide 20 MGTAKE 1 TABLET BY MOUTH DAILY; Duration: Not-TakingLisinopril 20 MGTAKE 1 TABLET BY MOUTH ONCE DAILY; Duration: 90 daysActiveLevothyroxine Sodium 50 MCG1 tablet in the morning on an empty stomach Orally Once a day; Duration: 90 days04/18/2024ctive Immunizations Vaccine Route Administration Date Status Comme nts Flu, Flucelvax (28093) 6 mos and older, single-dose syringe (4609-1982) IM Intramuscular 04/13/2024 Administered Social History Tobacco Use: Social History Observation Description Date Details (start date - stop date) Current Smoker NA - NA Tobacco Use/Smoking Question Answer Notes Patient is a current every day smoker AUDIT-C (Standard) Question Answer Notes Did you have a drink containing alcohol in the p ast year? No Efftty6WmjcvltapauvqfRgaplbfs Problems Problem Type SNOMED Code ICD Code Onset Dates Problem Status W/U Status Risk Notes Problem Age-related nuclear cataract of right eye (138945588199834) Age-related nuclear cataract, right eye (H25.11) ActiveconfirmedProblemSolitary pulmonary nodule (945353238)Solitary pulmonary nodule (R91.1)ActiveconfirmedProblemPresence of coronary angioplasty implant and graft (Z95.5)ActiveconfirmedProblemChest pain (44340989)Chest pain (R07.9)Active confirmedProblemHypertension (23522697)Hypertension (I10)ActiveconfirmedProblem Hypothyroid (97359689)Hypothyroid (E03.9)ActiveconfirmedProblemOsteoporosis (71698049)Osteoporosis (M81.0)ActiveconfirmedProblemWell adult (771404065)Well adult (Z00.00)ActiveconfirmedProblemSubdural hematoma (S06.5X9A)Activeconfirmed ProblemImaging result abnormal (428665611)Abnormal findings on diagnostic imaging of other specified body structures (R93.89)Activeconfirmed Vital Signs Heart Rate 96 /min 04/13/2024 Blood pressure rfrbmiekr82 mm Hg03/28/20257824Febokr21 in03/28/2025lood pressure iffhurfd740 mm Hg03/28/20255145Hptbih61.6 lbs1MI17.87 kg/m203/28/2025 Encounters Encounter Location Date Provider Diagnosis [facility] [address] [place] [address] 04/13/2024 Radames Hoy Encounter for immunization Z23 and Well adult Z00.00 [facility] [address] [place] [address] 03/28/2025 Radames Hoy Chest pain R07.9 ; Hypothyroid E03.9 ; Shoulder pain, right M25.511 ; Osteoporosis M81.0 and Hypertension I10 [facility] [address] [place] [address] 03/22/2025 Radames Hoy [facility] [place] [address] 04/03/2025[facility] [place] [address]/02/2025Doug HoyEncounter for immunization [facility] [place] [address]/Doug [facility] [place] [address] 12/22/2024[facility] [place] [address]/Doug [facility] [place] [facility] [place] [address]/06/2024[facility] [place] [facility] [place] [address]/06/2024[facility] [facility] [address]/oug Hoy [facility]othyroid E03.9[facility] [facility] [address]/oug [facility] [place] [address]/4[facility] [place] [address]/ou Hoy Assessments Encounter Date Diagnosis (ICD Code) Assessment Notes Treatment Notes Treatment Clinical Notes Section Notes 04/13/2024 Encounter for immunization (ICD- 10 - Z23) 04/13/2024Well adult (ICD-10 - Z00.00)03/28/2025hest pain (ICD-10 - R07.9) 04/18/2024Hypothyroid (ICD-10 - E03.9)06/16/2024Encounter for immunization (ICD- 10 - Z23)03/28/2025Hypothyroid (ICD-10 - E03.9)03/28/2025Shoulder pain, right (ICD-10 - [...] End Date MEDICARE [place] [address] [place] [address] [id number] Amina Finley - patient is the insured Medical (General) History Medical History History ICD Code hypertension Cardiac stentsSurgical History Surgery Date(Month/Year) Right Eye Intraocular lens implant Cataract Removal- lens implant Breast cyst removaltubal ligation
--- NOTE | 2025-04-04 08:02 | CT_ITS ---
The [address] [address] Patient Name: LOU MCGUIRE MRN: [id number] date: 1960 Sex: F Assigned Patient Location: CT Current Patient Location: LAB Accession/Order Number: [id number] Exam Date: 04/04/2025 07:58 Report Date: 04/04/2025 08:55 At the request of: RYAN LEMOS MD Procedure: CT chest wo con CT CHEST WITHOUT CONTRAST COMPARISON: 03/22/2024 and CLINICAL DATA: Follow-up lung nodules. Wrist pain. Spiral images were obtained through the chest without contrast. Images were reviewed using both narrow and wide window settings. This CT exam was performed using one or more following dose reduction techniques: Automated exposure control, adjustment of the mA and/or kV according to patient size, or use of iterative reconstruction technique. The heart is normal size. There is a trace amount of pericardial fluid. Coronary artery disease is seen. There is no aortic aneurysm. There is plaque at the aortic arch and proximal great vessels. There are a few small nonpathologic mediastinal lymph nodes. There are calcified left hilar granulomas. There is subtle dextroscoliotic curvature and tiny endplate spurs. Scarring is again visualized at the lung apices. There is also minimal linear scarring or atelectasis at the left base. There is obstructive lung disease with airspace lucencies and subpleural blebs. No developing consolidation, pleural effusion or pneumothorax is identified. Tiny scattered pulmonary nodules are again seen, not significantly changed. Limited cuts through the upper abdomen show no contributory findings. CT/CT chest wo con IMPRESSION: OBSTRUCTIVE LUNG DISEASE WITH SCARRING/ATELECTASIS AND SIMILAR PULMONARY NODULARITY. Impression dictated by: Lisandra Shin M.D. 04/04/2025 8:55 AM Dictation Location: [place] [address] Electronically authenticated by: [id number] Y Date: 04/04/2025 08:55
== END 2025-04-04 07:48 | disposition home or self-care (01) ==
LOC: CT 07:49
PROVIDERS: PCP Family Medicine; Visit Provider Family Medicine
DX: R07.9 Chest pain, unspecified (principal); M25.511 Pain in right shoulder; J44.9 Chronic obstructive pulmonary disease, unspecified
CPT/HCPCS: 71250

== ENCOUNTER 2025-04-28 07:50 | Outpatient (OUT) | payer MEDICARE, SELFPAY ==
--- OUTSIDE RECORDS SUMMARY | 2025-04-28 07:52 | XMS_ITS | Clinical Summary ---
Author Organization [facility] Address [address] [place] [address] Care Team Providers Care Minister Name Role Phone Unavailable Primary Care Provider Unavailabl e Social History Tobacco UseTypesPacks/DayYears UsedDateSmoking Tobacco: Never Assessed CommentsUnknownSex and Gender InformationValueDate RecordedSex Assigned at Not on fileLegal IxaTwqkyh09/30/2022 12:02 AM EDTGender IdentityNot on file Sexual OrientationNot on file Last Filed Vital Signs Vital SignReadingTime TakenCommentsBlood Toafgddy563/8810 9:49 AM EDT Pulse--Temperature--Respiratory Rate--Oxygen Mdbcyekoda30%03/13/2021 9:47 AM EDT Inhaled Oxygen Concentration--Ftipcy49.9 kg (110 lb)03/13/2021 9:46 AM EDTHeight 165.1 cm (5' 5 )03/13/2021 9:46 AM EDTBody Mass Index18.310 9:46 AM EDT Plan of Treatment Not on file
--- OUTSIDE RECORDS SUMMARY | 2025-04-28 07:52 | XMS_ITS | Clinical Summary ---
Author Organization [facility] Address [address], [address] [place] [address] Care Team Providers Care Well Blower Name Role Phone Enzo Arevalo MD Primary Care Provider [phone] Allergies No known active allergies Medications MedicationSigDispense [...] tablet by mouth daily 30 tablet Active iceismsmowa-xtqbdwgyi-eqwqug (TRELEGY ELLIPTA) 100-62.5-25 MCG/ACT AEPB inhaler Inhale 1 puff into the lungs dailyActive citalopram (CELEXA) 20 MG tablet Take 1 tablet by mouth dailyActive alendronate (FOSAMAX) 70 MG tablet Take 1 tablet by mouth every 7 daysActive Multiple Vitamins-Minerals (VITAMIN D3 COMPLETE PO) Take by mouthActive aspirin 81 MG chewable tablet Take 1 tablet by mouth dailyActive Active Problems ProblemNoted DateDiagnosed DateSubdural iapvwiwt56/17/2019 Resolved Problems ProblemNoted DateDiagnosed DateResolved DateAge-related nuclear cataract of right eye/ge-related nuclear cataract of left eye11/30/2022 12/01/2022 Social History Tobacco UseTypesPacks/DayYears UsedDateSmoking Tobacco: Every WavZcstduwutd216 Smokeless Tobacco: Never Tobacco Cessation:Ready to Q uit: Not Asked; Counseling Given: Not Answered Alcohol UseStandard Drinks/WeekCommentsNever0 (1 standard drink = 0.6 oz pure alcohol)AUDIT-CAnswerDate RecordedFrequency of Alcohol ConsumptionNever 10/23/2018Average Number of DrinksNot on file10/23/2018Frequency of Binge DrinkingNot on file10/23/2018Interpersonal Safety Domain Source: IP Abuse ScreeningAnswerDate RecordedRead-Only, Retired: Physical ScvegYisefl78/14/2023 Read-Only, Retired: Verbal CozjmZpsuid92/14/2023Read-Only, Retired: Emotional rojvyEdvdjc34/14/2023Read-Only, Retired: Financial UmfbiVqgssm89/14/2023Read- Only, Retired: Sexual gqjuiSiljsh69/14/2023CommentsNoSex and Gender InformationValueDate RecordedSex Assigned at BirthNot on fileLegal SexFemale 07/18/2012 11:41 AM ESTGender IdentityNot on fileSexual OrientationNot on file Last Filed Vital Signs Vital SignReadingTime TakenCommentsBlood Ucdysngk018/9201/19/2023 11:15 AM EDT Smhka569601/19/2023 11:15 AM EPEZswuxtiuixb36.1 ??C (96.9 ??F)01/19/2023 10:48 AM EDTRespiratory Hqds773001/19/2023 11:15 AM EDTOxygen Gziifroloh26%01/19/2023 11:15 AM EDTInhaled Oxygen Concentration--Cytfnb87.6 kg (105 lb)01/19/2023 9:50 AM EDT Ipiqzz939.9 cm (5' 1 )01/19/2023 9:50 AM EDTBody Mass Index19.8401/19/2023 9:50 AM EDT Plan of Treatment Health MaintenanceDue DateLast DoneCommentsDepression Ophrrm5508/30/1971HIV screen 08/29/1974Hepatitis C xditeu4408/29/1977DTaP/Tdap/Td vaccine (1 - Tdap)08/29/1978 Pneumococcal 50+ years Vaccine (1 of 2 - PCV)08/29/1978Breast cancer screen 08/30/19990653Ammicwexnyt21/24/2005Colorectal Cancer Ujvevy5108/29/2004FIT/FOBT: Average risk08/29/2004Fecal-DNA (Cologuard): Average risk08/29/2004 Sigmoidoscopy/CT prpbdjftezli49/24/2005Lung Cancer Screening &/or Counseling 08/29/2009Shingles vaccine (1 of 2)08/29/2009DEXA (modify frequency per FRAX score)08/29/2014Respiratory Syncytial Virus (RSV) or age 60 yrs+ (1 - Risk 60-74 years 1-dose series)08/30/20194597Kwxmiu12/20/Flu vaccine (#1)5COVID-19 Vaccine ( - season)2025Hepatitis A [...] 22+ Diopt 6x12.5 Mm Acryl Envista - [id number] Implanted:Qty: 1 on 12/01/2022 [facility] EyeBAUSCH AND LOMB-WD08/05/[id number] / [id number] / Lens Intraocular Bcnvx 22+ Diopt 6x12.5 Mm Acryl Envista - [id number] Implanted:Qty: 1 on 01/19/2023 [facility] EyeBAUSCH AND LOMB-11/05/[id number] / [id number] / Procedures Procedure NamePriorityDate/TimeAssociated DiagnosisCommentsLIPID PANELRoutine 10/25/2018 6:36 AM EDT from Last 3 Months or Most Recently Relevant to Health Maintenance Results * (ABNORMAL) Lipid Panel (10/25/2018 6:36 AM EDT)ComponentValueRef RangeTest MethodAnalysis TimePerformed AtPathologist SzcrwdysmBvzvkyfjalh226<200 mg/dL 10/25/2018 6:36 AM EDTMERCY LABORATORIESComment: Cholesterol Guidelines: <200 Desirable 200-240 ??Borderline >240 Undesirable HDL37(L)>40 mg/dL10/25/2018 6:36 AM EDTMERCY LABORATORIESComment: HDL Guidelines: <40 Undesirable 40-59 ?Borderline >59 Desirable LDL Camlbhdjjcw735 - 130 mg/dL10/25/2018 6:36 AM EDTMERCY LABORATORIESComment: [...] Ahmed MDCHEMISTRY ORDERABLESFinal ResultPerforming OrganizationAddressCity/State/ZIP CodePhone Number [facility] [address] [place] [address], [facility] [phone] from Last 3 Months or Most Recently Relevant to Health Maintenance Insurance Advance Directives * Full Code (Latest Code Status on File) Date ActivatedDate InactivatedComments01/19/2023 9:38 AM01/19/2023 1:37 PM * Full Code Date ActivatedDate InactivatedComments12/01/2022 8:08 AM12/01/2022 12:28 PM * Full Code Date ActivatedDate InactivatedComments10/22/2018 11:13 PM10/26/2018 6:13 PM Care Teams Team MemberRelationshipSpecialtyStart DateEnd Date Enzo Arevalo MD [address] [place] [address] PCP - GeneralFamily Medicine10/22/18
--- OUTSIDE RECORDS SUMMARY | 2025-04-28 07:52 | XMS_ITS | Clinical Summary ---
Author Organization [facility] Address [address] [place] [address] Care Team Providers Care Hitch Technician Name Role Phone Rayray Winters Primary Care Provider Unavailabl e Social History Tobacco UseTypesPacks/DayYears UsedDateSmoking Tobacco: Never Assessed CommentsUnknownSex and Gender InformationValueDate RecordedSex Assigned at Not on fileLegal OsjJdaxrb22/02/2012 9:11 AM ESTGender IdentityNot on fileSexual OrientationNot on file Plan of Treatment Health MaintenanceDue DateLast DoneCommentsAnxiety Yxmkjiubz69/24/1978Depression Ckwzunpiu50/24/1978HIV Vijwcazpx48/24/1978Hepatitis C Nmlhpctct35/24/1978 DTaP,Tdap,Td Vaccine (1 - Tdap)08/29/1978Mammogram Sldidgtie64/24/2000CT Otwouqpryttz44/24/2005Cologuard (FIT-DNA)08/29/20044108Ryarjzwgcco48/24/2005 Colorectal Cancer Hfagyjuqa06/24/2005Diabetes Zzgoknxvk63/24/2005Fecal Occult Blood08/29/2004Lipid Vutwyaihh07/24/8680Osllwrevpwtmn64/24/2005Pneumococcal Vaccine: 50+ (1 of 1 - PCV)08/29/2009Shingrix Vaccine (1 of 2)08/29/2009dvance Directive Ckbeexhawa45/24/2025Bone Density Kxcqrudpc58/24/2025ovid-19 Vaccine (1 - 2024- season)2025Influenza Vaccine (#1)2025RSV Vaccine (1 - 1-dose 75+ series)08/29/2034 Insurance * Guarantor: Lou Finley TypeRelation to PatientDate of BirthPhone Billing AddressPersonal/WkvtckFwea[birth year][address] [address] Care Teams Team MemberRelationshipSpecialtyStart DateEnd Date Rayray Winters [address] [address] PCP - [facility]09/15/00
--- OUTSIDE RECORDS SUMMARY | 2025-04-28 07:53 | XMS_ITS | Patient Health Record ---
Author Organization [facility] [place] Address [address] [place] [address] Care Team Providers Care Supervisory Geographer Name Role Phone Radames Lemos Primary Care Provider Allergies No Known Allergies Results Component Value Reference Range Notes XR shoulder RT min 2V Reviewed date:04/03/2025 06:46:17 PM Interpretation: Performing Lab: Notes/Report: Source Facility: [place] [address] XRay Report Signed Patient: LOU FINLEY MR#: [id number] : 1960 Acct:[id number] Age/Sex: 64 / F ADM Date: 04/03/25 Loc: LAB Attending Dr: Ryan Lemos M.D. Ordering Physician: Ryan Lemos M.D. Date of Service: 04/03/25 Procedure(s): XR shoulder RT min 2V Accession Number(s): [id number] cc: Ryan Lemos M.D. [place] [address] Patient Name: LOU FINLEY MRN: [id number] date: 1960 Sex: F Assigned Patient Location: LAB Current Patient Location: LAB Accession/Order Number: [id number] Exam Date: 04/03/2025 08:52 Report Date: 04/03/2025 [...] Shin M.D. 04/03/2025 9:29 AM Dictation Location: [place] [address] Electronically authenticated by: [id number] Y Date: 04/03/2025 09:29 Dictated By: Lisandra Shin M.D. Signed By: 04/03/25931 DD/ 8 TD/TT: Associate Dean: TSH Reviewed date:04/03/2025 06:46:17 PM Interpretation: Performing Lab: Notes/Report: [facility] , Thyroid Stimulating Hormone 1.280 0.358-3.740 u IU/mL Performing Lab:see noteML - [facility] LBT4 Reviewed date:04/03/2025 06:46:17 PM Interpretation: Performing Lab: Notes/Report: [facility] ,T4 Gvrambzeo90.904.80-13.90 ug/dLPerforming Lab:see noteML - [facility] LBPROF 14(COMP METB) Reviewed date:04/03/2025 06:46:17 PM Interpretation: Performing Lab: Notes/Report: [facility] ,Asoayl246562-679 mmol/LPotassium4.33.5-5.1 mmol/HYmnizqrw45162-620 mmol/LCarbon Dpektly25.121.0-32.0 mmol/LAnion Gap13.4Axhvvhs59475-331 mg/dLBlood Urea Plhsecuy23.07.0-18.0 mg/dLCreatinine0.810.55-1.02 mg/dLEstimated GFR ( Eloise>60>=60 mL/min/1.73m 2Estimated GFR (Non- Samantha>60>=60 mL/min/1.73m 2BUN Creatinine Ratio16.6Rihyeoj9.58.5-10.1 mg/dLBilirubin Total0.40.2-1.0 mg/dL Aspartate Amino Taasrleantq4214-99 U/LAlanine Pkeylyizvqxcbuqi2760-40 U/L Alkaline Ixxsqeemlwv6370-151 U/LTotal Protein7.06.4-8.2 g/dLAlbumin Level3.93.4- 5.0 g/dLGlobulin3.1Albumin Globulin Ratio1.3Performing Lab:see note - [facility] LBLIPID PROFILE Reviewed date:04/03/2025 06:46:17 PM Interpretation: Performing Lab: Notes/Report: [facility] ,Xqqnhlqdstaww772<=150 mg/jSBhmwyqzrbkp891<=200 mg/dLHDL Dtnogfrmcmc6124-87 mg/dL > or =60 mg/dl - LOW CARDIOVASCULAR RISK <40 mg/dl - HIGH CARDIOVASCULAR RISK LDL Cholesterol Comgulptru48.4 <100 mg/dl OPTIMAL 100-129 mg/dl NEAR OR ABOVE OPTIMAL 130-159 mg/dl BORDERLINE HIGH 160-189 mg/dl HIGH >190 mg/dl VERY HIGH VLDL KEWKYXZFODQ67.6Chol HDL Ratio3.1 3.3 - 4.4 LOW RISK 4.4 - 7.1 AVERAGE RISK 7.1 - 11.0 MODERATE RISK >11.0 HIGH RISK Performing Lab:see [facility] - [facility] LBGLYCOHEMOGLOBIN A1C Reviewed date:04/03/2025 06:46:17 PM Interpretation: Performing Lab: Notes/Report: [facility] ,Glycohemoglobin A1C5.74.5-6.2 % ADA RECOMMENDED LIMIT 4.0 - 6.0 ADA THERAPEUTIC TARGET < 7.0 ACTION SUGGESTED > 7.0 Estimated Average Jxfjdhw935Uwbgewjcet Lab:see note - [facility] LB FREE T3 Reviewed date:04/03/2025 06:46:17 PM Interpretation: Performing Lab: Notes/Report: [facility] ,Free T32.652.18-3.98 pg/mLPerforming Lab:see note - [facility] LB CBC AUTO DIFF Reviewed date:04/03/2025 06:46:17 PM Interpretation: Performing Lab: Notes/Report: [facility] ,White Blood Count8.54.0-11.0 10 3/uLRed Blood Count4.974.20-5.40 10 6/uL Rsmxfxwyeu28.512.0-16.0 g/dFPxcubwcdow72.136.0-48.0 %Mean Corpuscular Uxyjpx60.8 81.0-99.0 fLMean Corpuscular Xqskgeylxf51.226.7-34.0 pgMean Corpuscular HGB Conc 32.929.9-35.2 g/dLRed Cell Distribution Width13.011.0-15.0 %Platelet Xualw725 150-450 10 3/uLMean Platelet Pvhuwa20.99.5-13.5 fLNeutrophils Percent Auto59.0 43.0-75.0 %Lymphocytes Percent Auto30.220.5-60.0 %Monocytes Percent Auto7.71.7- 12.0 %Eosinophils Percent Auto2.00.9-7.0 %Basophils Percent Auto0.70.2-2.0 % Immature Granulocytes Pct Auto0.40.0-0.5 %Neutrophils Absolute Auto5.01.4-6.5 10 3/uLLymphocytes Absolute Auto2.61.2-3.8 10 3/uLMonocytes Absolute Auto0.70.3-0.8 10 3/uLEosinophils Absolute Auto0.20.0-0.7 10 3/uLBasophils Absolute Auto0.10.0- 0.1 10 3/uLImmature Granulocytes Abs Auto0.030.00-0.03 10 3/uLPerforming Lab:see noteML - [facility] Reviewed date:05/11/2024 06:54:13 PM Interpretation: Performing Lab: Notes/Report: [facility] ,Thyroid Stimulating Hormone1.5380.358-3.740 uIU/mLPerforming Lab:see noteML - [facility] LBT4 Reviewed date:05/11/2024 06:54:13 PM Interpretation: Performing Lab: Notes/Report: [facility] ,T4 Thyroxine9.404.80-13.90 ug/dLPerforming Lab:see noteML - [facility] LBFREE T3 Reviewed date:05/11/2024 06:54:13 PM Interpretation: Performing Lab: Notes/Report: [facility] Zach T32.262.18-3.98 pg/mLPerforming Lab:see noteML - [facility] LB CT chest wo con Reviewed date:04/04/2025 07:26:17 PM Interpretation: Performing Lab: Notes/Report: Source Facility: [facility]-[address] [place] [address] [place] [address] CT Scan Report Signed Patient: LOU FINLEY MR#: [id number] : 1960 Acct:[id number] Age/Sex: 64 / F ADM Date: 04/04/25 Loc: CT Attending Dr: Ryan Lemos M.D. Ordering Physician: Ryan Lemos M.D. Date of Service: 04/04/25 Procedure(s): CT chest wo con Accession Number(s): [id number] cc: Ryan Lemos M.D. [place] [address] Patient Name: LOU FINLEY MRN: [id number] date: 1960 Sex: F Assigned Patient Location: CT Current Patient Location: LAB Accession/Order Number: [id number] Exam Date: 04/04/2025 07:58 Report Date: 04/04/2025 08:55 At the request of: RYAN LEMOS MD Procedure: CT chest wo con CT CHEST WITHOUT CONTRAST COMPARISON: 03/22/2024 and CLINICAL DATA: Follow-up lung nodules. Wrist pain. Spiral images were obtained through the chest without contrast. Images were reviewed using both narrow and wide window settings. This CT exam was performed using one or more following dose reduction techniques: Automated exposure control, adjustment of the mA and/or kV according to patient size, or use of iterative reconstruction technique. The heart is normal size. There is a trace amount of pericardial fluid. Coronary artery disease is seen. There is no aortic aneurysm. There is plaque at the aortic arch and proximal great vessels. There are a few small nonpathologic mediastinal lymph nodes. There are calcified left hilar granulomas. There is subtle dextroscoliotic curvature and tiny endplate spurs. Scarring is again visualized at the lung apices. There is also minimal linear scarring or atelectasis at the left base. There is obstructive lung disease with airspace lucencies and subpleural blebs. No developing consolidation, pleural effusion or pneumothorax is identified. Tiny scattered pulmonary nodules are again seen, not significantly changed. Limited cuts through the upper abdomen show no contributory findings. CT/CT chest wo con IMPRESSION: OBSTRUCTIVE LUNG DISEASE WITH SCARRING/ATELECTASIS AND SIMILAR PULMONARY NODULARITY. Impression dictated by: Lisandra Shin M.D. 04/04/2025 8:55 AM Dictation Location: [place] [address] Electronically authenticated by: [id number] Y Date: 04/04/2025 08:55 Dictated By: Lisandra Shin M.D. Signed By: 04/04/25 0858 DD/ 0855 TD/TT: Associate Dean:Occult Blood* Reviewed date:04/04/2025 07:26:17 PM Interpretation: Performing Lab: Notes/Report: [facility] ,Occult BloodNegativePerforming Lab:see noteML - [facility] LBVITAMIN D 25 [place] Reviewed date:04/03/2025 06:46:17 PM Interpretation: Performing Lab: Notes/Report: [facility] ,Vitamin D108.0 <20 ng/mL Vit D deficient 20-<30 ng/mL Vit D insufficient 30-100 ng/mL Vit D sufficient >100 ng/mL Potential Toxicity Performing Lab:see noteML - [facility] LBIRON Reviewed date:04/03/2025 06:46:17 PM Interpretation: Performing Lab: Notes/Report: [facility] ,Iron69.050.0-170.0 ug/dLPerforming Lab:see noteML - [facility] LB Reason For Referral No [...] Administration Date Status Comme nts Flu, Flucelvax (15819) 6 mos and older, single-dose syringe (4700-9821) IM Intramuscular 04/13/2024 Administered Social History Tobacco Use: Social History Observation Description Date Details (start date - stop date) Current Smoker NA - NA Tobacco Use/Smoking Question Answer Notes Patient is a current every day smoker AUDIT-C (Standard) Question Answer Notes Did you have a drink containing alcohol in the p ast year? No Kocdfz2EydbdogmhwoszoZhgvdtli Problems Problem Type SNOMED Code ICD Code Onset Dates Problem Status W/U Status Risk Notes Problem Age-related nuclear cataract of right eye (974910119996469) Age-related nuclear cataract, right eye (H25.11) ActiveconfirmedProblemSolitary pulmonary nodule (810558760)Solitary pulmonary nodule (R91.1)ActiveconfirmedProblemPresence of coronary angioplasty implant and graft (Z95.5)ActiveconfirmedProblemChest pain (65813304)Chest pain (R07.9)Active confirmedProblemHypertension (53328778)Hypertension (I10)ActiveconfirmedProblem Hypothyroid (00902661)Hypothyroid (E03.9)ActiveconfirmedProblemOsteoporosis (63332956)Osteoporosis (M81.0)ActiveconfirmedProblemWell adult (895025803)Well adult (Z00.00)ActiveconfirmedProblemSubdural hematoma (S06.5X9A)Activeconfirmed ProblemImaging result abnormal (617147305)Abnormal findings on diagnostic imaging of other specified body structures (R93.89)Activeconfirmed Vital Signs Blood pressure diastolic 58 mm Hg 03/28/2025 [place]pr[place]46 in03/28/2025lood pressure jtzwkatf469 mm Hg03/28/20258210Trjicv09.6 lbs 03/28/2025BMI17.87 kg/m203/28/2025 Encounters Encounter Location Date Provider Diagnosis [facility] [address] [place] [address] 03/28/2025 Radames Hoy Chest pain R07.9 ; Hypothyroid E03.9 ; Shoulder pain, right M25.511 ; Osteoporosis M81.0 and Hypertension I10 [facility] [address] [place] [address] 05/03/2024 Radames y [facility] [place] [address] 05/11/2024oug [facility] [place] [address]/02/2025Doug HoyEncounter for immunization [facility]94[facility] [place] [address]/Doug [facility] [place] [address] 12/22/2024Doug [facility] [place] [address]/Doug [facility] [place] [address]/06/2024Doug [facility] [facility] [facility] [place] [address]/06/2024Doug [facility] [place] [address]/Doug [facility] [facility] [facility] [place] [address]/ Radames Lemos Assessments Encounter Date Diagnosis (ICD Code) Assessment Notes Treatment Notes Treatment Clinical Notes Section Notes 03/28/2025 Chest pain (ICD-10 - R07.9) 03/28/2025Hypothyroid (ICD-10 - E03.9)06/16/2024Encounter for immunization (ICD- 10 - Z23)03/28/2025Shoulder pain, right (ICD-10 - M25.511)03/28/2025Osteoporosis (ICD-10 - M81.0)03/28/2025Hypertension (ICD-10 - I10)having orthostatichypoetnsion Plan Of Treatment Pending Test Test Name Order Date CMP (COMPLETE METABOLIC PANEL) 4 CMP (COMPLETE METABOLIC PANEL) HEMOGLOBIN A1C (GLYCO) 04/13/2024 HEMOGLOBIN A1C (GLYCO) [...] End Date MEDICARE [place] [address] [place] [address] [id number] Amina Finley - patient is the insured Medical (General) History Medical History History ICD Code hypertension Cardiac stentsSurgical History Surgery Date(Month/Year) tubal ligation Breast cyst removalCataract Removal- lens implantRight Eye Intraocular lens implant01/19/23
--- OUTSIDE RECORDS SUMMARY | 2025-04-28 07:53 | XMS_ITS | CCD ---
Author Organization [facility] Care Team Providers Care Coil Former Name Role Phone KEL BUENO Unavailable Unavailable RYAN AREVALO Unavailable Unavailable ALENID, AURORA HUSSAM Unavailable Unavailabl e RACHLEE POST Unavailable Unavailable [place] Unavailable Unavailable UNKNOWN, PROVIDER Unavailable Unavailable MEERA [...] Unavailable HOY ., DR DAVIS Consulting Unavailable [place], DR MEERA Maria Consulting Unavailable BILLY, DR CORINA Nichole Consulting Unavailable Ryan Arevalo MD Primary Care Provider [phone] RYAN AREVALO Primary Care Unavailable ELVIRA SCHERER [...] lactate 0.028 meq/ml injectable solution (2 sources)Start: 11-65-6412hjtcvrmv ringers IV soln infusionStart: 12-01-2022 lactated ringers IV soln infusioncitalopram 20 mg oral tablet (2 sources)Serotonin Reuptake Inhibitortake 1 tablet by mouth once daily citalopram (CELEXA) 20 MG tablet Take 1 tablet by mouth daily 0 Wrctxs58 actuat fluticasone furoate 0.1 mg/actuat / umeclidinium 0.0625 mg/actuat / vilanterol 0.025 mg/actuat dry powder inhaler (2 sources)Anticholinergic, Corticosteroid, beta2-Adrenergic Agonisttake 1 puff(s) by inhalation once wjyernhrfrifaakm-ghqxmjaoc-giqmbt (TRELEGY ELLIPTA) 100-62.5-25 MCG/ACT AEPB inhaler Inhale 1 puff into the lungs daily 0 Husdwj53 hr hydroCHLOROthiazide 12.5 mg / metoprolol succinate 25 mg extended release oral tablet (2 sources)Thiazide Diuretic, beta-Adrenergic Blockertake 25 mg by mouth once dailyMetoprolol-HCTZ ER 25-12.5 MG TB24 Take 25 mg by mouth daily 0 Active levETIRAcetam 500 mg oral tablet (1 source)Start: 21-66-7157zoku 1 tablet by mouth twice dailylevETIRAcetam (KEPPRA) 500 MG tablet Take 1 tablet by mouth 2 times daily for 8 doses 8 tablet 0 10/26/2018 Activelisinopril 10 mg oral tablet (2 sources)Angiotensin Converting Enzyme InhibitorStart: 76-92-8463znqe 1 tablet by mouth once dailylisinopril (PRINIVIL;ZESTRIL) 10 MG tablet Take 1 tablet by mouth daily 30 tablet 3 10/27/2018 ActiveMultiple Vitamins-Minerals (VITAMIN D3 COMPLETE PO) (2 sources)Multiple Vitamins-Minerals (VITAMIN D3 COMPLETE PO) Take by mouth 0 ActiveMultiple Vitamins-Minerals (VITAMIN D3 COMPLETE PO) Take by mouth 0 Suspendedphenylephrine hydrochloride 25 mg/ml ophthalmic solution (2 sources)alpha-1 Adrenergic AgonistStart: 01-12-4242agandxvcdqckk (MYDFRIN) 2.5 % ophthalmic solution 1 dropStart: 07-62-8925hgvnyywgbowbr (MYDFRIN) 2.5 % ophthalmic solution 1 dropproparacaine hydrochloride 5 mg/ml ophthalmic solution (2 sources)Local AnestheticStart: 44-06-2636qlmwmrhgauqq (ALCAINE) 0.5 % ophthalmic solution 1 dropStart: 31-05-0550scywhwhxgqyv (ALCAINE) 0.5 % ophthalmic solution 1 hkac6057 ml sodium chloride 9 mg/ml injection (14 sources)Start: 39-36-4467NqtmcSNGznb, at 5-250 mL/hr, PRN, if patient receiving [...] less into rate field of order. Post-opStart: 82-76-2632xtuu 1 dose intravenously twice daily5-40 mL, IntraVENous, [...] mL/lumen Post-opStart: .9 % sodium chloride infusionStart: 04-50-8222vogjum chloride flush 0.9 % injection 5-40 mLStart: [...] less into rate field of order. Post-opStart: 82-49-2343bzmw 1 dose intravenously twice daily5-40 mL, IntraVENous, [...] or Central Line = 20 mL/lumen Post-opStart: 08-35-8806naxd 5-40 mL intravenously once as needed5-40 mL, [...] Post-opStart: 12-01-2022 0.9 % sodium chloride infusionStart: 55-24-3018gkzerj chloride flush 0.9 % injection 5-40 mLtetracaine hydrochloride 5 mg/ml ophthalmic solution (2 sources)Suzie Local AnestheticStart: 81-00-7192xexnkfotga (TETRAVISC) 0.5 % ophthalmic solution 1 dropStart: 71-17-8104qvchhdogpb (TETRAVISC) 0.5 % ophthalmic solution 1 droptropicamide 10 mg/ml ophthalmic solution (2 sources)AnticholinergicStart: 99-66-1362pxcdovydkki (MYDRIACYL) 1 % ophthalmic solution 1 dropStart: 04-75-3271oyousricqui (MYDRIACYL) 1 % ophthalmic solution 1 drop Completed/Discontinued Medications MedicationDrug Class(es)DatesSig (Normalized)Sig (Original)docusate sodium 50 mg / sennosides, care home 8.6 mg oral tablet (1 source)Start: 10-26-2018 End: 09-43-4253utzm 1 tablet by mouth twice daily as needed for constipation sennosides-docusate sodium (SENOKOT-S) 8.6-50 MG tablet Take 1 tablet by mouth 2 times daily as needed for Constipation 30 tablet 0 10/26/2018 11/17/2022 Discontinued (LIST CLEANUP) Problems Active Problems Problem ClassificationProblemDateDocumented DateEpisodic/ChronicAcute cerebrovascular disease (2 sources)Hematoma of subdural space of neuraxis; Translations: [Subdural hematoma]Onset: 683720-11-9192HsfyjqoTfrhvxpa (9 sources)Age-related nuclear cataract of left eye; Translations: [Age-related nuclear cataract, left eye]Onset: 11-30-2022 Resolved: 12-56-6618OunstszAusgrpry atherosclerosis and other heart disease (1 source)Atherosclerotic heart disease of [place] coronary artery with unstable angina pectoris; Translations: [ATHSCL HEART DISEASE OF [place] COR ART W UNSTABLE ANG PCTRS]Onset: 05-78-4525NoquegdXuakefrp, including migraine (1 source)Migraine, unspecified, not intractable, without status migrainosus; Translations: [MIGRAINE, UNSP, NOT INTRACTABLE, WITHOUT STATUS MIGRAINOSUS] Onset: 90-45-3223EnnxmarVjurvgjltl disorders (1 source)Other primary ovarian failure; Translations: [OTHER PRIMARY OVARIAN FAILURE]Onset: 38-50-2808HqsfyhlGvhmo bone disease and musculoskeletal deformities (1 source)Other specified disorders of bone density and structure, left thigh; Translations: [OTH D/O BONE DEN STRUCT LT THIGH]Onset: 36-63-9684IguichyqUusor screening for suspected conditions (not mental disorders or infectious disease) (1 source)Encounter for screening mammogram for malignant neoplasm of breast; Translations: [ENC SCR MAMMO MALIG NEOPLASM BREAST]Onset: 16-23-3841Zatykrls Spondylosis; intervertebral disc disorders; other back problems (1 source)Other intervertebral disc degeneration, lumbar region; Translations: [OTH IV DISC DEGEN LUMBAR REGION]Onset: 94-63-9186ZfaktrrAsbfarcdq-related disorders (2 sources)Nicotine dependence, cigarettes, uncomplicated; Translations: [NICOTINE DEPENDENCE, CIGARETTES, UNCOMPLICATED]Onset: 77-93-8346EtgfnheTgzfemr disorders (4 sources)Hypothyroidism, unspecified; Translations: [HYPOTHYROIDISM UNSPECIFIED]Onset: 31-73-5818GqhvaubWpelhauknimv (2 sources)Unknown / UNK(Unknown)Onset: 25-25-3512Kmqbyjgsyazo (1 source)LOW BACK PAIN, UNSPECIFIED; Translations: [LOW BACK PAIN, UNSPECIFIED] Onset: 08-19-2022 Past or Other Problems Problem ClassificationProblemDateDocumented DateEpisodic/ChronicNonspecific chest pain (2 sources)Chest pain, unspecified; Translations: [CHEST PAIN, UNSPECIFIED] Onset: 01-69-5590Awisbhin Results Test NameValueInterpretationReference RangeFaciluk healthcareCNCOon 56-32-9716ZDRQVooafe TextNormalCOhioHealth Dublin Methodist Hospitalon 97-40-1847QEQKQshvimjuf (CARDMN) LOU FINLEY ([id number]) 1960 F Date Time Provider Department 06/02/23 AIDA MATOS ([facility]) CARDMN During your visit today, we recorded the following information about you: Aida Lilly 06/02/2023 1:06 PM Signed web appts: 1st call. scheduled for 06/[address] Capone. Mailed reminder. Case closed. Allergies As of Date: 06/02/2023 (Not on File) Date Reviewed: Never Reviewed Reason for Visit: Appointment [186] Problem List As Of Date: 06/02/2023 (None) Encounter Status:Closed by AIDA LILLY on 06/02/23NormalCAvita Health System T3on 47-72-9731XUDA T33.53 pg/mlLNormal2.18-3.98The [facility] CampusComment on above:Performed By: #### T4, FT3, TSH #### [facility] [address] [place] [address] Dr. Guevara AbrahamT4on 59-75-3524D6 [Mass/Vol]10.20 ug/dLNormal4.80-13.90The [facility] CampusComment on above:Performed By: #### T4, FT3, TSH #### [facility] [address] [place] [address] Dr. Guevara RussoHojohn 59-33-2027EFH8.509 uIU/mLCritically high0.358-3.740The [facility] CampusComment on above:Performed By: #### T4, FT3, TSH #### [facility] [address] [place] [address] Dr. Guevara AbrahamOCC BLD IMMUNO SCREENon 59-10-9712ROJFAP BLOODNegativeNormal NEGATIVEThe [facility] on above:Performed By: #### ANAIFA #### [facility] [address] [place] [address] Dr. Guevara Mandel by IFAon 27-38-0381Wlnnjlrukwx Antibodies, IFANegativeNormal The [facility] CampusComascension b[facility] on above:Result Comment: Negative <1:80 Borderline 1:80 Positive >1:80 ICAP nomenclature: AC-0 For more information about Hep-2 cell patterns use ANApatterns.org, the official website for the International Consensus on Antinuclear Antibody (CODI) Patterns (ICAP).Performed By: #### ANAIFA #### [facility] [address] [place] [address] Dr. Guevara AbrahamANTISTREPTOLYSIN O AB (ASO)on 78-52-1745Xtdxluquwtlwmytg O Ab 248.1 IU/mLCritically high0.0-200.0The [facility] CampusComment on above: Performed By: #### ASOAB #### [facility] [address] [place] [address] Dr. Guevara Hernandez-REACTIVE PROTEINS (HS)on 29-95-3099Y-Reactive Protein, Cardiac 0.32 mg/LNormal0.00-3.00The [facility] CampusComment on above:Result Comment: Relative Risk for Future Cardiovascular Event Low <1.00 Average 1.00 - 3.00 High >3.00Performed By: #### CRPHS #### [facility] [address] [place] [address] Dr. Guevara AbrahamINSULINon 88-66-1704Pzjqbhq47.3 uIU/mLNormal2.6-24.9The [facility] CampusComment on above:Performed By: #### INSULIN ####[facility] Wayfg[address] [place], [place] [address]DrCain AbrahamRHEUMATOID FACTORon 75-23-1595RW Latex Turbid.<10.0Normal<14.0The [facility] CampusComment on above:Performed By: #### RF #### [facility] [address] [place] [address] Dr. Guevara Dorantes AUTO DIFFon 72-90-6333IEAB #0.1 103/ulNormal0.0-0.1[facility] on above:Performed By: #### CBC ####[facility] Efyswzjkmg[address] [place], [place] [address]Dr.Guevara AbrahamBasophils/100 WBC (Bld)0.6 %Normal0.2-2.0The [facility] CampusComment on above:Performed By: #### CBC ####[facility] Vcdcggvxry[address] [place], [place] [address]DrLillian ChangEO #0.2 103/ulNormal0.0-0.7The [facility] on above:Performed By: #### CBC ####[facility] Eamkefxlfk[address] [place], [place] [address]DrLillian ChangEosinophils/100 WBC (Bld)1.9 %Normal 0.9-7.0The [facility] CampusComment on above:Performed By: #### CBC ####[facility] Elkeanvgog[address] [place], [place] [address]Dr.Guevara Jarad Erythrocyte distribution width (RBC) [Ratio]12.8 %Bthlfc92.0-15.0The [facility] CampusComment on above:Performed By: #### CBC ####[facility] Srnhibsqjf[address] [place], [place] [address]Dr.Zabrinameño JaradHematocrit (Bld) [Volume fraction]43.1 %Oblkrw39.0-48.0The [facility] CampusComment on above:Performed By: #### CBC ####[facility] Icurozlvka[address] [place], [place] [address]Dr.Guevara AbrahamHemoglobin (Bld) [Mass/Vol]14.5 g/dL Crmajt94.0-16.0The [facility] CampusComment on above:Performed By: #### CBC ####[facility] Viokjenppd398[address] [place], [place] [address]Dr. Guevara AbrahamIG #0.03 10e3/ulNormal0.00-0.03The [facility] CampusComment on above: Performed By: #### CBC ####[facility] Emtkngepaf[address] [place], [place] [address]Dr.Guevara AbrahamIG %0.3 %Normal0.0-0.5The [facility] CampusComment on above:Performed By: #### CBC ####[facility] Ukckbbrnds[address] [place], [place] [address]Dr.Guevara AbrahamLYMPH #3.3 103/ulNormal1.2-3.8The [facility] CampusComment on above:Performed By: #### CBC ####[facility] Egzxkczypz2[address] [place], [place] [address]Dr. Guevara AbrahamLymphocytes/100 WBC (Bld)34.2 %Kssziy48.5-60.0The [facility] Comment on above:Performed By: #### CBC ####[facility] Rdlognaizk05[address] [place], [place] [address]Dr.Guevara AbrahamMANUAL DIFF REQNONormalThe [facility] CampusComment on above:Performed By: #### CBC ####[facility] Jzuludhhqz73[address] [place], [place] [address]Dr.Guevara AbrahamU.[facility]. [facility] (RBC) [Entitic mass]31.4 poSwmuhs17.7-34.0The [facility] HospitalComment on above: Performed By: #### CBC ####[facility] Ncaqbxzxfb22[address] [place], [place] [address]Dr.Guevara AbrahamDOCTORS' [facility] (RBC) [Mass/Vol]33.6 g/dLNormal 29.9-35.2The [facility] HospitalComment on above:Performed By: #### CBC ####[facility] Nlvndphnal[address] [place], [place] [address]Dr. Guevara AbrahamV (RBC) [Entitic vol]93.3 gKPbklkz70.0-99.0The [facility] Comment on above:Performed By: #### CBC ####[facility] Cayuoktrbn[address] [place], [place] [address]Dr.Guevara AbrahamMONO #0.7 103/ulNormal0.3-0.8 The [facility] CampusComment on above:Performed By: #### CBC ####[facility] Ngefozhbac78[address] [place], [place] [address]Dr.Guevara Abraham Monocytes/100 WBC (Bld)7.3 %Normal1.7-12.0The [facility] CampusComment on above: Performed By: #### CBC ####[facility] Xbrcyijwlc[address] [place], [place] [address]Dr.Guevara AbrahamNEUT #5.3 103/ulNormal1.4-6.5The [facility] CampusComment on above:Performed By: #### CBC ####[facility] Ghwsdhztwo[address] [place], [place] [address]Dr.Guevara AbrahamNeutrophils/100 WBC (Bld)55.7 %Hysndp47.0-75.0The [facility] CampusComment on above:Performed By: #### CBC ####[facility] [address] [place] [address]Dr.Guevara AbrahamPlatelet mean volume (Bld) [Entitic vol]11.5 fLNormal9.5-13.5 The [facility] CampusComment on above:Performed By: #### CBC ####[facility] [address] [place] [address]Dr.Guevara AbrahamPLT211 103/ooVnzwue961-908Mpg [facility] CampusComment on above:Performed By: #### CBC ####[facility] Smbwdnkoma[address] [place], [place] [address]Dr. Guevara AbrahamRBC4.62 106/ulNormal4.20-5.40The [facility] CampusComment on above: Performed By: #### CBC ####[facility] Rkihxzvtfn[address] [place], [place] [address]Dr.Guevara ChangWBC9.5 103/ulNormal4.0-11.0The [facility] CampusComment on above:Performed By: #### CBC ####[facility] Toxfgqoznp[address] [place], [place] [address]Dr.Guevara AbrahamCRPon 04-06-4796DDR [Mass/Vol]mg/LNormal<=1.0[facility] on above: Performed By: #### CRP, T7, CMP, URIC, LIPID, TSH ####[facility] [address] [place] [address]Dr. Guevara AbrahamCT LUNG CANCER SCREENINGon 29-88-9327PC LUNG CANCER SCREENINGEXAMINATION: CT LUNG CANCER SCREENING [...] Electronically authenticated by: CORINA CERVANTES Date: 2022-08-15 09:25Lima City HospitalFREE THYROXINE INDEX T7on 03-52-9770DBT6.66Vysdtu0.30-4.50The [facility] Systemment on above:Performed By: #### CRP, T7, CMP, URIC, LIPID, TSH ####[facility] [address] [place] [address]Dr. Guevara PpnyqJ0C73.0 %Ponstf33.0-39.0The [facility] CampusComment on above: Performed By: #### CRP, T7, CMP, URIC, LIPID, TSH ####[facility] [address] [place] [address]Dr. Guevara ChangT4 [Mass/Vol] 9.10 ug/dLNormal4.80-13.90[facility] on above:Performed By: #### CRP, T7, CMP, URIC, LIPID, TSH ####[facility] [address] [place] [address]Dr. Guevara ChangGLYCOHEMOGLOBIN A1Con 08-15-2022 ADA RECOMMENDATIONSEE BELOWLima City HospitalComment on above:Result Comment: ADA RECOMMENDED LIMIT 4.0 - 6.0 ADA THERAPEUTIC TARGET < 7.0 ACTION SUGGESTED > 7.0Performed By: #### A1C ####[facility] [address] [place] [address]Dr.Guevara ChangGlucose [Mass/Vol]120 mg/dL NormalThe [facility] on above:Performed By: #### A1C ####[facility] [address] [place] [address]Dr.Guevara ZqoqcKrZ3l (Bld) [Mass fraction]5.8 %Normal4.5-6.2The [facility] HospitalComment on above: Performed By: #### A1C ####[facility] [address] [place] [address]Dr.Guevara AbrahamIROGricel 39-00-8360Zexm [Mass/Vol]124.0 ug/jXZaxtdy03.0-170.0[facility]auga Medical CenterComment on above:Performed By: #### IRON #### [facility] [address] [address] [address] Guevara AbrahamLIPID PROFILEon 89-14-8606VQTW-HDL RATIO NORMSEE [facility] on above:Result Comment: 3.3 - 4.4 LOW RISK 4.4 - 7.1 AVERAGE RISK 7.1 - 11.0 MODERATE RISK >11.0 HIGH RISKPerformed By: #### CRP, T7, CMP, URIC, LIPID, TSH ####[facility] [address] [place] [address]Dr. Guevara AbrahamCholesterol [Mass/Vol]132 mg/dLNormal<=200 The [facility] CampusComascension [facility]org[facility] on above:Performed By: #### CRP, T7, CMP, URIC, LIPID, TSH ####[facility] [address]uk[address] [place] [address]Dr. Guevara ChangCholesterol in HDL [Mass/Vol]44 mg/pIBypleu23-01QrfDunlap Memorial Hospital on above:Performed By: #### CRP, T7, CMP, URIC, LIPID, TSH ####[facility] [address]pir[address] [place] [address]Dr. Guevara AbrahamCholesterol in LDL [Mass/Vol]70.8 mg/dLLima City Hospital Comment on above:Performed By: #### CRP, T7, CMP, URIC, LIPID, TSH ####[facility] Sdnwveylna[address] [place], [place] [address]Dr. Guevara Abraham Cholesterol.total/Cholesterol in HDL [Mass ratio]3.0 {ratio}NormalDunlap Memorial Hospital on above:Performed By: #### CRP, T7, CMP, URIC, LIPID, TSH ####[facility] [address] [place] [address]Dr. Zabrinalan ChangHDL NORMAL> or = 60 mg/dl - LOW CARDIOVASCULAR RISK <40 mg/dl - HIGH CARDIOVASCULAR RISKLima City HospitalComment on above:Performed By: #### CRP, T7, CMP, URIC, LIPID, TSH ####[facility] [address]xs[address] [place] [address]Dr. Yilan ChangLDL CALC NORMALSEE BELOWNoMary Rutan HospitalComment on above:Result Comment: <100 mg/dl OPTIMAL 100 - 129 mg/dl NEAR OR ABOVE OPTIMAL 130 - 159 mg/dl BORDERLINE HIGH 160 - 189 mg/dl HIGH >190 mg/dl VERY HIGHPerformed By: #### CRP, T7, CMP, URIC, LIPID, TSH ####[facility] Jgxughknck[address] [place], [place] [address]Dr. Zabrinalan ChangTriglyceride [Mass/Vol]86 mg/dLNormal<=150[facility] Comment on above:Performed By: #### CRP, T7, CMP, URIC, LIPID, TSH ####[facility] Icyvimfuxv[address] [place], [place] [address]Dr. Yilan ChangVLDL CALC17.2 mg/dLNoMary Rutan HospitalComment on above:Performed By: #### CRP, T7, CMP, URIC, LIPID, TSH ####[facility] [address]eqjzdaheu[address] [place], [place] [address]Dr. Guevara ChangMG MAMM SCREEN 3D GRICEL CADon 08-15-2022 MG MAMM SCREEN 3D GRICEL CADPatient: LOU FINLEYCain Exam Date: 08/15/2022 : 1960 Gender:F Ordering : DR RYAN AREVALO . Admission #: [id number] Family : Order #: [id number] CLICK HERE TO VIEW EXAM RADIOLOGY REPORT PROCEDURE: MAMMOGRAM SCREENING 3D BILATERAL CAD COMPARISON: MG MAMM GRICEL SCRN W CAD DIG, 07/04/2015. INDICATIONS: Screening mammography Calculator Name NCI Breast Cancer Risk Assessment Tool 5 Year Breast Cancer Risk Not Reported. Lifetime Breast Cancer Risk Not Reported. Personal Breast Cancer No Personal Ovarian Cancer No Treatments None Family Cancers None LOCATION: [facility] BREAST COMPOSITION: Extremely dense, which lowers the [...] by: Meera Hodge MD on 08/15/2022 at 09:49L[facility] City HospitalPROF 14(COMP METB)on 25-80-5171Norpqos [Mass/Vol]3.9 g/dLNormal3.4-5.0The [facility] CampusComment on above:Performed By: #### CRP, T7, CMP, URIC, LIPID, TSH ####[facility] Kvbrqqylhk[address] [place], [place] [address]Dr. Yilan ChangAlbumin/Globulin [Mass ratio]1.2 {ratio}NormalThe [facility] Comment on above:Performed By: #### CRP, T7, CMP, URIC, LIPID, TSH ####[facility] P[address]qrwczbb[address] [place], [place] [address]Dr. Yilan ChangALP [Catalytic activity/Vol]66 U/JWbujiv00-917Crt [facility] CampusComment on above: Performed By: #### CRP, T7, CMP, URIC, LIPID, TSH ####[facility] Gegdbkghhg[address] [place], [place] [address]Dr. Yilan ChangALT [Catalytic activity/Vol]22 U/UIrtdgy52-46Yml [facility] CampusComment on above:Performed By: #### CRP, T7, CMP, URIC, LIPID, TSH ####[facility] Bloizgtavi[address] [place], [place] [address]Dr. Yilan ChangAnion gap [Moles/Vol]12.9 mmol/LNormalUniversity Hospitals Geauga Medical CenterComment on above:Performed By: #### CRP, T7, CMP, URIC, LIPID, TSH ####[facility] [address] eetB[place], [place] [address]Rm. Yilan ChangAST [Catalytic activity/Vol]14 U/L Critically usu98-94Qcw [facility] CampusComment on above:Performed By: #### CRP, T7, CMP, URIC, LIPID, TSH ####[facility] [address] [place] [address]Dr. Yilan ChangBilirubin [Mass/Vol]0.4 mg/dLNormal0.2-1.0 The [facility] CampusComment on above:Performed By: #### CRP, T7, CMP, URIC, LIPID, TSH ####[facility] Wisxcpkgyh[address] [place], [place] [address]Dr. Yilan ChangCalcium [Mass/Vol]8.8 mg/dLNormal8.5-10.1The [facility] CampusComment on above:Performed By: #### CRP, T7, CMP, URIC, LIPID, TSH ####[facility] Aprrpbixso[address] [place], [place] [address]Dr. Yilan ChangChloride [Moles/Vol]107 mmol/TQiwiei56-701Pdw [facility] Comment on above:Performed By: #### CRP, T7, CMP, URIC, LIPID, TSH ####[facility] Ozsiuupjyv[address] [place], [place] [address]Dr. Yilan ChangCO2 [Moles/Vol]26.8 mmol/PUeoxal98.0-32.0The [facility] CampusComment on above: Performed By: #### CRP, T7, CMP, URIC, LIPID, TSH ####[facility] Ddgnslszdb[address] [place], [place] [address]Dr. Yilan ChangCreatinine [Mass/Vol]0.85 mg/dLNormal0.55-1.02The [facility] Systemment on above: Performed By: #### CRP, T7, CMP, URIC, LIPID, TSH ####[facility] Xxfxvjxbuc[address] [place], [place] [address]Dr. Yilan ChangEGFR-AF ANGOLAN>60Normal>=60The [facility] CampusComment on above:Performed By: #### CRP, T7, CMP, URIC, LIPID, TSH ####[facility] [address] [place] [address]Dr. Yilan ChangEGFR-NON AF ANGOLAN>60Normal>=60The [facility] Systemment on above:Performed By: #### CRP, T7, CMP, URIC, LIPID, TSH ####[facility] [address] [place] [address]Dr. Yilan ChangGlobulin (S) [Mass/Vol]3.2 g/dLNormalThe [facility] CampusComascension borg[facility]-pipp hospital on above:Performed By: #### CRP, T7, CMP, URIC, LIPID, TSH ####[facility] [address] [place] [address]Dr. Yilan ChangGlucose [Mass/Vol]96 mg/tTMyprbw52-135Tsu [facility] Systemment on above:Performed By: #### CRP, T7, CMP, URIC, LIPID, TSH ####[facility] [address]jmeqeje[address] [place], [place] [address]Dr. Yilan ChangPotassium [Moles/Vol]3.7 mmol/LNormal3.5-5.1The [facility] CampusComment on above:Performed By: #### CRP, T7, CMP, URIC, LIPID, TSH ####[facility] [address] [place] [address]Dr. Yilan ChangProtein [Mass/Vol]7.1 g/dLNormal6.4-8.2The [facility] Systemment on above:Performed By: #### CRP, T7, CMP, URIC, LIPID, TSH ####[facility] [id number] [place], [place] [address]Dr. Yilan ChangSodium [Moles/Vol]143 mmol/ZIwqplw968-304Own [facility]als Health Systemment on above:Performed By: #### CRP, T7, CMP, URIC, LIPID, TSH ####[facility] [id number] [place], [place] [address]Dr. Yilan ChangUrea nitrogen [Mass/Vol]13.0 mg/dLNormal7.0-18.0[facility] Comment on above:Performed By: #### CRP, T7, CMP, URIC, LIPID, TSH ####[facility] [address] [place] [id number]. Guevaar AbrahamUrea nitrogen/Creatinine [Mass ratio]15.3 mg/mgNoMary Rutan HospitalComment on above:Performed By: #### CRP, T7, CMP, URIC, LIPID, TSH ####[facility] [address] [place] [id number]. Guevara AbrahamTSHon [id number] uIU/mLCritically high0.358-3.740[facility]auga Medical CenterComment on above:Performed By: #### CRP, T7, CMP, URIC, LIPID, TSH ####[facility] [address] [address]Dr. Guevara AbrahamURIC ACID SERUMon [id number] [Mass/Vol]3.1 mg/dLNormal2.6-6.0[facility] Comment on above:Performed By: #### CRP, T7, CMP, URIC, LIPID, TSH ####[facility] [address] [place] [address]Dr. Guevara AbrahamXR DEXA BONE DENSITYon [id number] DEXA BONE DENSITYEXAMINATION: XR DEXA BONE DENSITY, [...] Electronically authenticated by: MEERA HODGE Date: 2022-08-15 09:00[facility]XR L[facility] MIN 4 VIEWSon [id number] LSPINE MIN 4 VIEWS EXAMINATION: XR LSPINE [...] Electronically authenticated by: CORINA CERVANTES Date: 2022-08-15 09:04[facility] head/brain wo conon [id number] head/brain wo [facility] Main [place] [address] [place] [address] MRI Report Signed Patient: Lou Finley MR#: [id number] : [id number] Acct:[id number] Age/Sex: 60 / F ADM Date: 07/19/21 Loc: [facility] Room: Type: [facility] Attending Dr: Himanshu Acosta DO Ordering Provider: [...] the left cerebral convexity. Impression dictated by: Jcak Giles M.D.07/19/2021 1:11 PM Dictation Location: [place] [address] Transcribed By: DUKE 07/19/21 1311 Dictated By: Jack Giles II, MD 07/19/21 1302 Signed By: 07/19/21 1311NoOhio State Health SystemPhysician Referralon [id number] [id number]:127 [facility] CenterBasic Metabolic Profon 10-26-2018(cont.)[facility] HospitalComment on above:Result Comment: Average GFR for 50-59 years old: 93 mL/min/1.73sq m Chronic Kidney Disease: <60 mL/min/1.73sq m Kidney failure: <15 mL/min/1.73sq m eGFR calculated using average adult body mass. Additional eGFR calculator available at: http://www.[employer].Wheelz/multiple_crcl_2012.htmPerformed By: #### CDP, BMP, CRP, PRCAL #### [facility] [address] [place], [place] [phone] Senior Vice President And Chief Information Officer: Sabas Lamb MDAnion gap [Moles/Vol]9 mmol/LNormal9-17[facility] CenterComment on above:Performed By: #### CDP, BMP, CRP, PRCAL #### [facility] [address] [place], [place] [phone] Senior Vice President And Chief Information Officer: Sabas Lamb MDCalcium [Mass/Vol]8.3 mg/dLLow8.6-10.4[facility] CenterComment on above:Performed By: #### CDP, BMP, CRP, PRCAL #### [facility] [address] [place] [address] Senior Vice President And Chief Information Officer: GIOVANNY Burthloride [Moles/Vol]100 mmol/ZJwmogd17-484UebtbAdena Fayette Medical CenterComment on above:Performed By: #### CDP, BMP, CRP, PRCAL #### [facility] [address] [place] [address] Senior Vice President And Chief Information Officer: Sabas Lamb MDCO2 [Moles/Vol]26 mmol/EBfhkpa38-44RsaykAdena Fayette Medical CenterComment on above:Performed By: #### CDP, BMP, CRP, PRCAL #### [facility] [address] [place] [address] Senior Vice President And Chief Information Officer: GIOVANNY Burtreatinine [Mass/Vol]0.26 mg/dLLow0.50-0.90[facility] CenterComment on above:Performed By: #### CDP, BMP, CRP, PRCAL #### [facility] [address] [place] [address] Senior Vice President And Chief Information Officer: Sabas Lamb MDGFR, Amer>60Normal>60[facility] CenterComment on above:Performed By: #### CDP, BMP, CRP, PRCAL #### [facility] [address] [place] [address] Senior Vice President And Chief Information Officer: Sabas Lamb MDGFR,non Amer>60Normal>60[facility] CenterComment on above:Performed By: #### CDP, BMP, CRP, PRCAL #### [facility] [address] [place] [address] Senior Vice President And Chief Information Officer: Sabas Lamb MDGlucose [Mass/Vol]112 mg/uEFsad79-26LkmcvSeton Medical CenterComment on above:Performed By: #### CDP, BMP, CRP, PRCAL #### [facility] [address] [place] [address] Senior Vice President And Chief Information Officer: HILDA Burtotassium [Moles/Vol]3.1 mmol/LLow3.7-5.3[facility] Verde HospitalComment on above:Performed By: #### CDP, BMP, CRP, PRCAL #### [facility] [address] [place] [address] Senior Vice President And Chief Information Officer: LAURA Burtodium [Moles/Vol]135 mmol/JUhblei098-295UqdekAdena Fayette Medical CenterComment on above:Performed By: #### CDP, BMP, CRP, PRCAL #### [facility] [address] [place] [address] Senior Vice President And Chief Information Officer: Patel Burt nitrogen [Mass/Vol]6 mg/dLNormal6-20[facility] CenterComment on above:Performed By: #### CDP, BMP, CRP, PRCAL #### [facility] [address] [place] [address] Senior Vice President And Chief Information Officer: MOE Burt/ANEUDY Lala REPORTEDNormal9-20[facility] CenterComment on above:Performed By: #### CDP, BMP, CRP, PRCAL #### [facility] [address] [place] [address] Senior Vice President And Chief Information Officer: LAURA Burttaging:NOT REPORTEDNormalAdena Fayette Medical CenterComment on above:Performed By: #### CDP, BMP, CRP, PRCAL #### [facility] [address] [place] [address] Senior Vice President And Chief Information Officer: GENE Burt with Diffon [id number]. Basophil<0.03 Normal0.00-0.20[facility] CenterComment on above:Performed By: #### CDP, BMP, CRP, PRCAL #### [facility] [address] [place] [address] Senior Vice President And Chief Information Officer: Bridgette Burt.Imm.Granulocyte0.03 k/uLNormal0.00-0.30[facility] CenterComment on above:Performed By: #### CDP, BMP, CRP, PRCAL #### [address] [address] Senior Vice President And Chief Information Officer: Bridgette Burt.Neutrophil (Seg)7.04 k/uLNormal1.50-8.10 [facility] CenterComment on above:Performed By: #### CDP, BMP, CRP, PRCAL #### [facility] Related Content Database (RCDb) [address] [place] [address] Senior Vice President And Chief Information Officer: Sabas Lamb MDBasophils/100 WBC (Bld)0 %Normal0-2MSanta Teresita HospitalComment on above:Performed By: #### CDP, BMP, CRP, PRCAL #### [address] [address] Senior Vice President And Chief Information Officer: Sabas Lamb MDEosinophils (Bld) [#/Vol]0.08 10*3/uLNormal 0.00-0.44[facility] CenterComment on above:Performed By: #### CDP, BMP, CRP, PRCAL #### [facility] Related Content Database (RCDb) [address] [place] [address] Senior Vice President And Chief Information Officer: STCAEY Burtosinophils/100 WBC (Bld)1 %Normal1-4[facility] CenterComment on above:Performed By: #### CDP, BMP, CRP, PRCAL #### [facility] Related Content Database (RCDb) [address] [place] [address] Senior Vice President And Chief Information Officer: Sabas Lamb MDErythrocyte distribution width (RBC) [Ratio]12.0 %Cvlpeh71.8-14.4[facility] CenterComment on above:Performed By: #### CDP, BMP, CRP, PRCAL #### [facility] Related Content Database (RCDb) [address] [place] [address] Senior Vice President And Chief Information Officer: Sabas Lamb MDHematocrit (Bld) [Volume fraction]32.3 %Low 36.3-47.1MSanta Teresita HospitalComment on above:Performed By: #### CDP, BMP, CRP, PRCAL #### [facility] Related Content Database (RCDb) [address] [place] [address] Senior Vice President And Chief Information Officer: Sabas Lamb MDHemoglobin (Bld) [Mass/Vol]10.5 g/dLLow11.9-15.1 [facility] CenterComment on above:Performed By: #### CDP, BMP, CRP, PRCAL #### [place] [address] Senior Vice President And Chief Information Officer: Sabas Lamb MDImmature granulocytes (Bld) [#/Vol]0 %Normal0 [facility] Medical CenterComment on above:Performed By: #### CDP, BMP, CRP, PRCAL #### [place] [address] Senior Vice President And Chief Information Officer: Sabas Lamb MDLymphocytes (Bld) [#/Vol]1.45 10*3/uLNormal 1.10-3.70[facility] CenterComment on above:Performed By: #### CDP, BMP, CRP, PRCAL #### [facility] Related Content Database (RCDb) [address] [place] [address] Senior Vice President And Chief Information Officer: Aydin Burtmphocytes/100 WBC (Bld)16 %Dxn54-63ArzaxAdena Fayette Medical CenterComment on above:Performed By: #### CDP, BMP, CRP, PRCAL #### [facility] Related Content Database (RCDb) [address] [place] [address] Senior Vice President And Chief Information Officer: SILVIA BurtCH (RBC) [Entitic mass]31.3 wtOxecso83.2-33.5 [facility] CenterComment on above:Performed By: #### CDP, BMP, CRP, PRCAL #### [facility] Related Content Database (RCDb) [address] [place] [address] Senior Vice President And Chief Information Officer: SILVIA BurtCHC (RBC) [Mass/Vol]32.5 g/cCKbbzgr47.4-34.8 [facility] CenterComment on above:Performed By: #### CDP, BMP, CRP, PRCAL #### [facility] Related Content Database (RCDb) [address] [place] [address] Senior Vice President And Chief Information Officer: SILVIA BurtCV (RBC) [Entitic vol]96.1 qUPorexu59.6-102.9 [facility] CenterComment on above:Performed By: #### CDP, BMP, CRP, PRCAL #### [facility] Related Content Database (RCDb) [address] [place] [address] Senior Vice President And Chief Information Officer: SILVIA Burtonocytes (Bld) [#/Vol]0.54 10*3/uLNormal 0.10-1.20[facility] CenterComment on above:Performed By: #### CDP, BMP, CRP, PRCAL #### [facility] Related Content Database (RCDb) [address] [place] [address] Senior Vice President And Chief Information Officer: SILVIA Burtonocytes/100 WBC (Bld)6 %Normal3-12[facility] Medical CenterComment on above:Performed By: #### CDP, BMP, CRP, PRCAL #### [facility] Related Content Database (RCDb) [address] [place] [address] Senior Vice President And Chief Information Officer: Sabas Lamb MDNeutrophil (Seg)77 %Ugzc38-00MljogAdena Fayette Medical CenterComment on above:Performed By: #### CDP, BMP, CRP, PRCAL #### [facility] Related Content Database (RCDb) [address] [place] [address] Senior Vice President And Chief Information Officer: Sabas Lamb MDNRBC Automated0.0 per 100 WBCNormal0.0[facility] Medical CenterComment on above:Performed By: #### CDP, BMP, CRP, PRCAL #### [facility] Related Content Database (RCDb) [address] [place] [address] Senior Vice President And Chief Information Officer: Jeremi Burt mean volume (Bld) [Entitic vol]11.7 fL Normal8.1-13.5[facility] Medical CenterComment on above:Performed By: #### CDP, BMP, CRP, PRCAL #### [address] [address] Senior Vice President And Chief Information Officer: Alejandro Burt (Bld) [#/Vol]261 10*3/nHNyovme707-427 [facility] CenterComment on above:Performed By: #### CDP, BMP, CRP, PRCAL #### [address] [address] Senior Vice President And Chief Information Officer: CAMILLE BurtBC (Bld) [#/Vol]3.36 10*6/uLLow3.95-5.11[facility] CenterComment on above:Performed By: #### CDP, BMP, CRP, PRCAL #### [address] [address] Senior Vice President And Chief Information Officer: ALICIA Burt (Bld) [#/Vol]9.2 10*3/uLNormal3.5-11.3MSanta Teresita HospitalComment on above:Performed By: #### CDP, BMP, CRP, PRCAL #### [facility] Related Content Database (RCDb) [address] [place] [address] Senior Vice President And Chief Information Officer: Claudio Burt PerformedNOT REPORTEDNoCrystal Clinic Orthopedic CenterComment on above:Performed By: #### CDP, BMP, CRP, PRCAL #### [facility] Related Content Database (RCDb) [address] [place] [address] Senior Vice President And Chief Information Officer: Alejandro Burt (Bld) [#/Vol]NOT REPORTEDNoCrystal Clinic Orthopedic CenterComment on above:Performed By: #### CDP, BMP, CRP, PRCAL #### [facility] [address] [place] [address] Senior Vice President And Chief Information Officer: KATY Burt morphology finding Nom (Bld)NOT REPORTED NormalAdena Fayette Medical CenterComment on above:Performed By: #### CDP, BMP, CRP, PRCAL #### [facility] [address] [place] [address] Senior Vice President And Chief Information Officer: ALICIA Burt MorphologyNOT REPORTEDNormalAdena Fayette Medical CenterComment on above:Performed By: #### CDP, BMP, CRP, PRCAL #### [facility] [address] [place] [address] Senior Vice President And Chief Information Officer: Carmen Burt Metabolic Profon 10-25-2018(cont.)Normal [facility] CenterComment on above:Result Comment: Average GFR for 50-59 years old: 93 mL/min/1.73sq m Chronic Kidney Disease: <60 mL/min/1.73sq m Kidney failure: <15 mL/min/1.73sq m eGFR calculated using average adult body mass. Additional eGFR calculator available at: http://www.[employer].Wheelz/multiple_crcl_2012.htmPerformed By: #### CDP, BMP, CRP, PRCAL #### [facility] [address] [place] [address] Senior Vice President And Chief Information Officer: Sabas Lamb MDAnion gap [Moles/Vol]9 mmol/LNormal9-17[facility] CenterComment on above:Performed By: #### CDP, BMP, CRP, PRCAL #### [facility] [address] [place] [address] Senior Vice President And Chief Information Officer: Sabas Lamb MDCalcium [Mass/Vol]8.5 mg/dLLow8.6-10.4[facility] CenterComment on above:Performed By: #### CDP, BMP, CRP, PRCAL #### [facility] [address] [place] [address] Senior Vice President And Chief Information Officer: GIOVANNY Burthloride [Moles/Vol]100 mmol/SKxrqqf72-643NehocAdena Fayette Medical CenterComment on above:Performed By: #### CDP, BMP, CRP, PRCAL #### [facility] [address] [place] [address] Senior Vice President And Chief Information Officer: Sabas Lamb MDCO2 [Moles/Vol]28 mmol/CMawntr63-99HuchmAdena Fayette Medical CenterComment on above:Performed By: #### CDP, BMP, CRP, PRCAL #### [facility] [address] [place] [address] Senior Vice President And Chief Information Officer: GIOVANNY Burtreatinine [Mass/Vol]0.31 mg/dLLow0.50-0.90[facility] CenterComment on above:Performed By: #### CDP, BMP, CRP, PRCAL #### [facility] [address] [place] [address] Senior Vice President And Chief Information Officer: Sabas Lamb MDGFR, Amer>60Normal>60[facility] CenterComment on above:Performed By: #### CDP, BMP, CRP, PRCAL #### [facility] [address] [place] [address] Senior Vice President And Chief Information Officer: Sabas Lamb MDGFR,non Amer>60Normal>60[facility] CenterComment on above:Performed By: #### CDP, BMP, CRP, PRCAL #### [facility] [address] [place] [address] Senior Vice President And Chief Information Officer: Sabas Lamb MDGlucose [Mass/Vol]111 mg/mDNzty28-64XrpamSeton Medical CenterComment on above:Performed By: #### CDP, BMP, CRP, PRCAL #### [facility] [address] [place] [address] Senior Vice President And Chief Information Officer: HILDA Burtotassium [Moles/Vol]3.4 mmol/LLow3.7-5.3[facility]de HospitalComment on above:Performed By: #### CDP, BMP, CRP, PRCAL #### [facility] [address] [place] [address] Senior Vice President And Chief Information Officer: LAURA Burtodium [Moles/Vol]137 mmol/JVsvzfq358-762UthviAdena Fayette Medical CenterComment on above:Performed By: #### CDP, BMP, CRP, PRCAL #### [facility] [address] [place] [address] Senior Vice President And Chief Information Officer: Patel Burt nitrogen [Mass/Vol]9 mg/dLNormal6-20[facility] CenterComment on above:Performed By: #### CDP, BMP, CRP, PRCAL #### [facility] [address] [place] [address] Senior Vice President And Chief Information Officer: MOE Burt/ANEUDY Lala REPORTEDNormal9-20[facility] CenterComment on above:Performed By: #### CDP, BMP, CRP, PRCAL #### [facility] [address] [place] [address] Senior Vice President And Chief Information Officer: LAURA Burttaging:NOT REPORTEDNormalAdena Fayette Medical CenterComment on above:Performed By: #### CDP, BMP, CRP, PRCAL #### [facility] [address] [place] [address] Senior Vice President And Chief Information Officer: GENE Burt with Diffon [id number]. Basophil0.03 k/uL Normal0.00-0.20[facility] CenterComment on above:Performed By: #### CDP, BMP, CRP, PRCAL #### [facility] [address] [place] [address] Senior Vice President And Chief Information Officer: Bridgette Burt.Imm.Granulocyte0.05 k/uLNormal0.00-0.30[facility] CenterComment on above:Performed By: #### CDP, BMP, CRP, PRCAL #### [facility] Related Content Database (RCDb) [address] [place] [address] Senior Vice President And Chief Information Officer: MDAbs. CarmelNeutrophil (Seg)10.20 k/uLHigh1.50-8.10[facility] CenterComment on above:Performed By: #### CDP, BMP, CRP, PRCAL #### [facility] Related Content Database (RCDb) [address] [place] [address] Senior Vice President And Chief Information Officer: Sabas Lamb MDBasophils/100 WBC (Bld)0 %Normal0-2MSanta Teresita HospitalComment on above:Performed By: #### CDP, BMP, CRP, PRCAL #### [address] [address] Senior Vice President And Chief Information Officer: Sabas Lamb MDEosinophils (Bld) [#/Vol]0.04 10*3/uLNormal 0.00-0.44[facility] CenterComment on above:Performed By: #### CDP, BMP, CRP, PRCAL #### [facility] Related Content Database (RCDb) [address] [place] [address] Senior Vice President And Chief Information Officer: STACEY Burtosinophils/100 WBC (Bld)0 %Low1-4[facility] CenterComment on above:Performed By: #### CDP, BMP, CRP, PRCAL #### [facility] Related Content Database (RCDb) [address] [place] [address] Senior Vice President And Chief Information Officer: Sabas Lamb MDErythrocyte distribution width (RBC) [Ratio]11.9 %Hbkiyl35.8-14.4[facility] Medical CenterComment on above:Performed By: #### CDP, BMP, CRP, PRCAL #### [facility] Related Content Database (RCDb) [address] [place] [address] Senior Vice President And Chief Information Officer: Sabas Lamb MDHematocrit (Bld) [Volume fraction]31.5 %Low 36.3-47.1MSanta Teresita HospitalComment on above:Performed By: #### CDP, BMP, CRP, PRCAL #### [facility] Related Content Database (RCDb) [address] [place] [address] Senior Vice President And Chief Information Officer: Sabas Lamb MDHemoglobin (Bld) [Mass/Vol]10.4 g/dLLow11.9-15.1 [facility] CenterComment on above:Performed By: #### CDP, BMP, CRP, PRCAL #### [facility] Related Content Database (RCDb) [address] [place] [address] Senior Vice President And Chief Information Officer: Sabas Lamb MDImmature granulocytes (Bld) [#/Vol]0 %Normal0 [facility] CenterComment on above:Performed By: #### CDP, BMP, CRP, PRCAL #### [facility] Related Content Database (RCDb) [address] [place] [address] Senior Vice President And Chief Information Officer: Sabas Lamb MDLymphocytes (Bld) [#/Vol]0.96 10*3/uLLow 1.10-3.70[facility] CenterComment on above:Performed By: #### CDP, BMP, CRP, PRCAL #### [facility] Related Content Database (RCDb) [address] [place] [address] Senior Vice President And Chief Information Officer: Aydin Burtmphocytes/100 WBC (Bld)8 %Fne15-16GzitkAdena Fayette Medical CenterComment on above:Performed By: #### CDP, BMP, CRP, PRCAL #### [facility] Related Content Database (RCDb) [address] [place] [address] Senior Vice President And Chief Information Officer: SILVIA BurtCH (RBC) [Entitic mass]31.9 fyQpqxvg02.2-33.5 [facility] CenterComment on above:Performed By: #### CDP, BMP, CRP, PRCAL #### [facility] Related Content Database (RCDb) [address] [place] [address] Senior Vice President And Chief Information Officer: SILVIA BurtCHC (RBC) [Mass/Vol]33.0 g/fMCoqdpt15.4-34.8 [facility] CenterComment on above:Performed By: #### CDP, BMP, CRP, PRCAL #### [facility] Related Content Database (RCDb) [address] [place] [address]2 Senior Vice President And Chief Information Officer: SILVIA BurtCV (RBC) [Entitic vol]96.6 gDUryngq15.6-102.9 [facility] CenterComment on above:Performed By: #### CDP, BMP, CRP, PRCAL #### [facility] Related Content Database (RCDb) [address] [place] [address] Senior Vice President And Chief Information Officer: SILVIA Burtonocytes (Bld) [#/Vol]0.75 10*3/uLNormal 0.10-1.20[facility] CenterComment on above:Performed By: #### CDP, BMP, CRP, PRCAL #### [facility] Related Content Database (RCDb) [address] [place] [address] Senior Vice President And Chief Information Officer: SILVIA Burtonocytes/100 WBC (Bld)6 %Normal3-12[facility] CenterComment on above:Performed By: #### CDP, BMP, CRP, PRCAL #### [facility] Related Content Database (RCDb) [address] [place] [address] Senior Vice President And Chief Information Officer: Sabas Lamb MDNeutrophil (Seg)86 %Xqxe61-23CbqjmAdena Fayette Medical CenterComment on above:Performed By: #### CDP, BMP, CRP, PRCAL #### [facility] Related Content Database (RCDb) [address] [place] [address]237 Senior Vice President And Chief Information Officer: Sabas Lamb MDNRBC Automated0.0 per 100 WBCNormal0.0[facility] CenterComment on above:Performed By: #### CDP, BMP, CRP, PRCAL #### [facility] Related Content Database (RCDb) [address] [place] [address] Senior Vice President And Chief Information Officer: Jeremi Burt mean volume (Bld) [Entitic vol]11.4 fL Normal8.1-13.5[facility] Medical CenterComment on above:Performed By: #### CDP, BMP, CRP, PRCAL #### [address] [address] Senior Vice President And Chief Information Officer: Alejandro Burt (Bld) [#/Vol]238 10*3/oPDjwtzb852-025 [facility] CenterComment on above:Performed By: #### CDP, BMP, CRP, PRCAL #### [facility] Related Content Database (RCDb) [address] [place] [address] Senior Vice President And Chief Information Officer: CAMILLE BurtBC (Bld) [#/Vol]3.26 10*6/uLLow3.95-5.11[facility] CenterComment on above:Performed By: #### CDP, BMP, CRP, PRCAL #### [address] [address] Senior Vice President And Chief Information Officer: ALICIA Burt (Bld) [#/Vol]12.0 10*3/uLHigh3.5-11.3MSanta Teresita HospitalComment on above:Performed By: #### CDP, BMP, CRP, PRCAL #### [facility] Related Content Database (RCDb) [address] [place] [address] [phone] Senior Vice President And Chief Information Officer: Claudio Burt PerformedNOT REPORTEDNoalAdena Fayette Medical CenterComment on above:Performed By: #### CDP, BMP, CRP, PRCAL #### [facility] Related Content Database (RCDb) [address] [place] [address] 74740 Senior Vice President And Chief Information Officer: Alejandro Burt (Bld) [#/Vol]NOT REPORTEDNormalAdena Fayette Medical CenterComment on above:Performed By: #### CDP, BMP, CRP, PRCAL #### [employer] [address] [place] [address] 56198 Senior Vice President And Chief Information Officer: KATY Burt morphology finding Nom (Bld)NOT REPORTED NormalAdena Fayette Medical CenterComment on above:Performed By: #### CDP, BMP, CRP, PRCAL #### [employer] [address] [place] [address] 27435 Senior Vice President And Chief Information Officer: ALICIA Burt MorphologyNOT REPORTEDNormalAdena Fayette Medical CenterComment on above:Performed By: #### CDP, BMP, CRP, PRCAL #### [employer] [address] [place] [address] 51235 Senior Vice President And Chief Information Officer: Sabas Lamb MDLipid Profileon [id number] [Mass/Vol] 114 mg/dLNormal<200A[facility] Fayette Medical CenterComment on above:Result Comment: Cholesterol Guidelines: <200 Desirable 200-240 Borderline >240 UndesirablePerformed By: #### CDP, BMP, CRP, PRCAL #### [address] [address] Senior Vice President And Chief Information Officer: GIOVANNY Burtholesterol in HDL [Mass/Vol]37 mg/dLLow>40Adena Fayette Medical CenterComment on above:Result Comment: HDL Guidelines: <40 Undesirable 40-59 Borderline >59 DesirablePerformed By: #### CDP, BMP, CRP, PRCAL #### [employer] [address] [place] [address] 78752 Senior Vice President And Chief Information Officer: GIOVANNY Burtholesterol in LDL [Mass/Vol]63 mg/dLNormal0-130 [facility] CenterComment on above:Result Comment: LDL Guidelines: <100 Desirable 100-129 Near to/above Desirable 130-159 Borderline >159 Undesirable Direct (measured) LDL and calculated LDL are not interchangeable tests.Performed By: #### CDP, BMP, CRP, PRCAL #### [employer] [address] [place] [address] 59499 Senior Vice President And Chief Information Officer: GIOVANNY Burtholesterol.total/Cholesterol in HDL [Mass ratio]3.1 {ratio}Normal<5Adena Fayette Medical CenterComment on above: Performed By: #### CDP, BMP, CRP, PRCAL #### [facility] [address] [place] [address] 75496 Senior Vice President And Chief Information Officer: Sabas Lamb MDTriglyceride [Mass/Vol]71 mg/dLNormal<150A[facility] Fayette Medical CenterComment on above:Result Comment: Triglyceride Guidelines: <150 Desirable 150-199 Borderline 200-499 High >499 Very high Based on AHA Guidelines for fasting triglyceride, March 2012.Performed By: #### CDP, BMP, CRP, PRCAL #### [facility] Related Content Database (RCDb) [address] [place] [address] 16456 Senior Vice President And Chief Information Officer: GIOVANNY Burtholesterol in VLDL [Mass/Vol]NOT REPORTEDNormal 1-30A[facility] Medical CenterComment on above:Performed By: #### CDP, BMP, CRP, PRCAL #### [facility] Related Content Database (RCDb) [address] [place] [address] 95399 Senior Vice President And Chief Information Officer: Adrian Burt Rejectionon 10-25-2018-----NOT REPORTED NormalAdena Fayette Medical CenterComment on above:Performed By: #### CDP, BMP, CRP, PRCAL #### [facility] Related Content Database (RCDb) [address] [place] [address] 43066 Senior Vice President And Chief Information Officer: Neo Burt for rejectionUnable to perform testing: Specimen mislabeled.NormalAdena Fayette Medical CenterComment on above: Performed By: #### CDP, BMP, CRP, PRCAL #### [facility] Related Content Database (RCDb) [address] [place] [address] 24509 Senior Vice President And Chief Information Officer: Luz Burt of sample.BLOODNormalAdena Fayette Medical CenterComment on above:Performed By: #### CDP, BMP, CRP, PRCAL #### [facility] [address] [place] [address] 14504 Senior Vice President And Chief Information Officer: Gigi Burt [facility] CDPNoalAdena Fayette Medical CenterComment on above:Performed By: #### CDP, BMP, CRP, PRCAL #### [address] [address] Senior Vice President And Chief Information Officer: Barrie Burt [id number] Coag (Bld) [Time]26.3 s Jikzyv58.5-30.5A[facility] Fayette Medical CenterComment on above:Performed By: #### CDP, BMP, CRP, PRCAL #### [address] [address] Senior Vice President And Chief Information Officer: Carmen Burt Metabolic Profon 10-24-2018(cont.)Normal [facility] Fayette Medical CenterComment on above:Result Comment: Average GFR for 50-59 years old: 93 mL/min/1.73sq m Chronic Kidney Disease: <60 mL/min/1.73sq m Kidney failure: <15 mL/min/1.73sq m eGFR calculated using average adult body mass. Additional eGFR calculator available at: http://www.[employer].Wheelz/multiple_crcl_2012.htmPerformed By: #### CDP, BMP, CRP, PRCAL #### [address] [address] Senior Vice President And Chief Information Officer: Nicky Burt gap [Moles/Vol]14 mmol/LNormal9-17A[facility] Medical CenterComment on above:Performed By: #### CDP, BMP, CRP, PRCAL #### [facility] Related Content Database (RCDb) [address] [place] [address] 10354 Senior Vice President And Chief Information Officer: Sabas Lamb MDCalcium [Mass/Vol]9.1 mg/dLNormal8.6-10.4A[facility] Medical CenterComment on above:Performed By: #### CDP, BMP, CRP, PRCAL #### [facility] [address] [place] [address] 24858 Senior Vice President And Chief Information Officer: GIOVANNY Burthloride [Moles/Vol]101 mmol/BJspgrk39-941WkmtaAdena Fayette Medical CenterComment on above:Performed By: #### CDP, BMP, CRP, PRCAL #### [facility] [address] [place] [address] 32015 Senior Vice President And Chief Information Officer: Sabas Lamb MDCO2 [Moles/Vol]23 mmol/ZXaxdyd30-41NzdlzAdena Fayette Medical CenterComment on above:Performed By: #### CDP, BMP, CRP, PRCAL #### [facility] Related [facility] (RCDb) [address] [place] [address] 52452 Senior Vice President And Chief Information Officer: GIOVANNY Burtreatinine [Mass/Vol]0.34 mg/dLLow0.50-0.90A[facility] Medical CenterComment on above:Performed By: #### CDP, BMP, CRP, PRCAL #### [facility] Related [facility] (RCDb) [address] [place] [address] 13624 Senior Vice President And Chief Information Officer: Sabas Lamb MDGFR, Amer>60Normal>60A[facility] Medical CenterComment on above:Performed By: #### CDP, BMP, CRP, PRCAL #### [facility] Related [facility] (RCDb) [address] [place] [address] 35423 Senior Vice President And Chief Information Officer: Sabas Lamb MDGFR,non Amer>60Normal>60MerKaiser Foundation HospitalComment on above:Performed By: #### CDP, BMP, CRP, PRCAL #### [facility] Related [facility] (RCDb) [address] [place] [address] 08002 Senior Vice President And Chief Information Officer: Sabas Lamb MDGlucose [Mass/Vol]86 mg/hHZzfjxe52-66LsrtaSeton Medical CenterComment on above:Performed By: #### CDP, BMP, CRP, PRCAL #### [facility] [address] [place] [address] 05422 Senior Vice President And Chief Information Officer: HILDA Burtotassium [Moles/Vol]3.9 mmol/LNormal3.7-5.3 [facility] CenterComment on above:Performed By: #### CDP, BMP, CRP, PRCAL #### [facility] [address] [place] [address] 37075 Senior Vice President And Chief Information Officer: LAURA Burtodium [Moles/Vol]138 mmol/JHbepzm487-558CllyzAdena Fayette Medical CenterComment on above:Performed By: #### CDP, BMP, CRP, PRCAL #### [facility] Related Content Database (RCDb) [address] [place] [address] 24686 Senior Vice President And Chief Information Officer: Patel Burt nitrogen [Mass/Vol]11 mg/dLNormal6-20[facility] Medical CenterComment on above:Performed By: #### CDP, BMP, CRP, PRCAL #### [facility] Related Content Database (RCDb) [address] [place] [address] 02195 Senior Vice President And Chief Information Officer: MOE Burt/CRE HariOT REPORTEDNormal9-20[facility] Medical CenterComment on above:Performed By: #### CDP, BMP, CRP, PRCAL #### [facility] Related Content Database (RCDb) [address] [place] [address] 06647 Senior Vice President And Chief Information Officer: LAURA Burttaging:NOT REPORTEDNormalAdena Fayette Medical CenterComment on above:Performed By: #### CDP, BMP, CRP, PRCAL #### [facility] [address] [place] [address] 67303 Senior Vice President And Chief Information Officer: Sabas Lamb [facility] with Diffon [id number]. Basophil0.03 k/uL Normal0.00-0.20A[facility]ayette Medical CenterComment on above:Performed By: #### CDP, BMP, CRP, PRCAL #### [facility] Related Content Database (RCDb) [address] [place] [address] 82631 Senior Vice President And Chief Information Officer: MDAbs. CarmelImm.Granulocyte0.05 k/uLNormal0.00-0.30A[facility] Medical CenterComment on above:Performed By: #### CDP, BMP, CRP, PRCAL #### [address] [address] Senior Vice President And Chief Information Officer: MDAbs. CarmelNeutrophil (Seg)12.06 k/uLHigh1.50-8.10A[facility]ayette Medical CenterComment on above:Performed By: #### CDP, BMP, CRP, PRCAL #### [address] [address] Senior Vice President And Chief Information Officer: Sabas Lamb MDBasophils/100 WBC (Bld)0 %Normal0-2MSanta Teresita HospitalComment on above:Performed By: #### CDP, BMP, CRP, PRCAL #### [address] 87768 Senior Vice President And Chief Information Officer: Sabas Lamb MDEosinophils (Bld) [#/Vol]10*3/uLNormal0.00-0.44 [facility] Medical CenterComment on above:Performed By: #### CDP, BMP, CRP, PRCAL #### [address] 81730 Senior Vice President And Chief Information Officer: STACEY Burtosinophils/100 WBC (Bld)0 %Low1-4A[facility] Fayette Medical CenterComment on above:Performed By: #### CDP, BMP, CRP, PRCAL #### [facility] Related Content Database (RCDb) [address] [place] [address] 90980 Senior Vice President And Chief Information Officer: Sabas Lamb MDErythrocyte distribution width (RBC) [Ratio]11.9 %Bmsorb86.8-14.4A[facility] Medical CenterComment on above:Performed By: #### CDP, BMP, CRP, PRCAL #### [facility] Related Content Database (RCDb) [address] [place] [address] 25729 Senior Vice President And Chief Information Officer: Sabas Lamb MDHematocrit (Bld) [Volume fraction]39.6 %Normal 36.3-47.1MSanta Teresita HospitalComment on above:Performed By: #### CDP, BMP, CRP, PRCAL #### [address] [address] Senior Vice President And Chief Information Officer: Sabas Lamb MDHemoglobin (Bld) [Mass/Vol]12.3 g/dLNormal 11.9-15.1MSanta Teresita HospitalComment on above:Performed By: #### CDP, BMP, CRP, PRCAL #### [place] [address] Senior Vice President And Chief Information Officer: Sabas Lamb MDImmature granulocytes (Bld) [#/Vol]0 %Normal0 [facility] Medical CenterComment on above:Performed By: #### CDP, BMP, CRP, PRCAL #### [address] [address]75 Senior Vice President And Chief Information Officer: Aydin Burtmphocytes (Bld) [#/Vol]0.82 10*3/uLLow 1.10-3.70A[facility] Medical CenterComment on above:Performed By: #### CDP, BMP, CRP, PRCAL #### [address] [address]959 Senior Vice President And Chief Information Officer: Aydin Burtmphocytes/100 WBC (Bld)6 %Zid53-96HjnvfAdena Fayette Medical CenterComment on above:Performed By: #### CDP, BMP, CRP, PRCAL #### [address] [address]58 Senior Vice President And Chief Information Officer: SILVIA BurtCH (RBC) [Entitic mass]31.1 arZgnktm89.2-33.5 [facility] CenterComment on above:Performed By: #### CDP, BMP, CRP, PRCAL #### [address] [address] Senior Vice President And Chief Information Officer: SILVIA BurtCHC (RBC) [Mass/Vol]31.1 g/fKXqsowm36.4-34.8 [facility] CenterComment on above:Performed By: #### CDP, BMP, CRP, PRCAL #### [address] [address] Senior Vice President And Chief Information Officer: SILVIA BurtCV (RBC) [Entitic vol]100.3 aCGruxgv92.6-102.9 [facility] CenterComment on above:Performed By: #### CDP, BMP, CRP, PRCAL #### [address] 88735 Senior Vice President And Chief Information Officer: SILVIA Burtonocytes (Bld) [#/Vol]0.80 10*3/uLNormal 0.10-1.20[facility] Medical CenterComment on above:Performed By: #### CDP, BMP, CRP, PRCAL #### [address] [address]3333 Senior Vice President And Chief Information Officer: SILVIA Burtonocytes/100 WBC (Bld)6 %Normal3-12A[facility] Fayette Medical CenterComment on above:Performed By: #### CDP, BMP, CRP, PRCAL #### [facility] Related Content Database (RCDb) [address] [place] [address] 88689 Senior Vice President And Chief Information Officer: Sabas Lamb MDNeutrophil (Seg)88 %Ctbc23-09XfutpAdena Fayette Medical CenterComment on above:Performed By: #### CDP, BMP, CRP, PRCAL #### [facility] Related Content Database (RCDb) [address] [place] [address] 81992 Senior Vice President And Chief Information Officer: Sabas Lamb MDNRBC Automated0.0 per 100 WBCNormal0.0A[facility] Fayette Medical CenterComment on above:Performed By: #### CDP, BMP, CRP, PRCAL #### [facility] Related Content Database (RCDb) [address] [place] [address] 93868 Senior Vice President And Chief Information Officer: Jeremi Burt mean volume (Bld) [Entitic vol]11.5 fL Normal8.1-13.5A[facility] Fayette Medical CenterComment on above:Performed By: #### CDP, BMP, CRP, PRCAL #### [facility] Related Content Database (RCDb) [address] [place] [address] 05163 Senior Vice President And Chief Information Officer: Alejandro Burt (Bld) [#/Vol]261 10*3/jWTawspk839-870 [facility] CenterComment on above:Performed By: #### CDP, BMP, CRP, PRCAL #### [facility] Related Content Database (RCDb) [address] [place] [address] 91673 Senior Vice President And Chief Information Officer: CAMILLE BurtBC (Bld) [#/Vol]3.95 10*6/uLNormal3.95-5.11 [facility] CenterComment on above:Performed By: #### CDP, BMP, CRP, PRCAL #### [facility] Related Content Database (RCDb) [address] [place] [address] 91915 Senior Vice President And Chief Information Officer: ALICIA Burt (Bld) [#/Vol]13.8 10*3/uLHigh3.5-11.3MSanta Teresita HospitalComment on above:Performed By: #### CDP, BMP, CRP, PRCAL #### [facility] Related Content Database (RCDb) [address] [place] [address] 16992 Senior Vice President And Chief Information Officer: Claudio Burt PerformedNOT REPORTEDWadsworth-Rittman HospitalComment on above:Performed By: #### CDP, BMP, CRP, PRCAL #### [facility] Related Content Database (RCDb) [address] [place] [address] 06761 Senior Vice President And Chief Information Officer: Alejandro Burt (Bld) [#/Vol]NOT REPORTEDNormalAdena Fayette Medical CenterComment on above:Performed By: #### CDP, BMP, CRP, PRCAL #### [employer] [address] [place] [address] 09721 Senior Vice President And Chief Information Officer: KATY Burt morphology finding Nom (Bld)NOT REPORTED [facility]Rittman HospitalComment on above:Performed By: #### CDP, BMP, CRP, PRCAL #### [employer] [address] [place] [address] 55778 Senior Vice President And Chief Information Officer: ALICIA Burt MorphologyNOT REPORTEDNoCrystal Clinic Orthopedic CenterComment on above:Performed By: #### CDP, BMP, CRP, PRCAL #### [employer] [address] [place] [address] 13738 Senior Vice President And Chief Information Officer: Zena Burt [id number] Coag (PPP) [Relative time]1.0 {INR}[facility]-Rittman HospitalComment on above:Result Comment: Therapeutic Range: Moderate Anticoagulant Intensity: INR = 2.0-3.0 High Anticoagulant Intensity: INR = 2.5-3.5Performed By: #### CDP, BMP, CRP, PRCAL #### [employer] [address] [place] [address] 73050 Senior Vice President And Chief Information Officer: EDISON Burt Coag (PPP) [Time]10.8 sNormal9.0-12.0A[facility] Medical CenterComment on above:Performed By: #### CDP, BMP, CRP, PRCAL #### [employer] [address] [place] [address] 90131 Senior Vice President And Chief Information Officer: Carmen Burt Metabolic Profon 10-23-2018(cont.)[facility] HospitalComment on above:Result Comment: Average GFR for 50-59 years old: 93 mL/min/1.73sq m Chronic Kidney Disease: <60 mL/min/1.73sq m Kidney failure: <15 mL/min/1.73sq m eGFR calculated using average adult body mass. Additional eGFR calculator available at: http://www.[employer].com/multiple_crcl_2012.htmPerformed By: #### CDP, BMP, CRP, PRCAL #### [facility] [address] [place] [address] 41271 Senior Vice President And Chief Information Officer: Sabas Lamb MDAnion gap [Moles/Vol]14 mmol/LNormal9-17[facility] Medical CenterComment on above:Performed By: #### CDP, BMP, CRP, PRCAL #### [facility] [address] [place] [address] 11793 Senior Vice President And Chief Information Officer: Sabas Lamb MDCalcium [Mass/Vol]8.2 mg/dLLow8.6-10.4[facility] Medical CenterComment on above:Performed By: #### CDP, BMP, CRP, PRCAL #### [facility] [address] [place] [address] 26115 Senior Vice President And Chief Information Officer: Sabas Lamb MDChloride [Moles/Vol]107 mmol/EQfyqfi91-585KqlnpAdena Fayette Medical CenterComment on above:Performed By: #### CDP, BMP, CRP, PRCAL #### [facility] [address] [place] [address] 56966 Senior Vice President And Chief Information Officer: Sabas Lamb MDCO2 [Moles/Vol]20 mmol/CIsjsge56-73FlaxoAdena Fayette Medical CenterComment on above:Performed By: #### CDP, BMP, CRP, PRCAL #### [facility] [address] [place] [address] 89057 Senior Vice President And Chief Information Officer: Sabas Lamb MDCreatinine [Mass/Vol]0.42 mg/dLLow0.50-0.90[facility] Medical CenterComment on above:Performed By: #### CDP, BMP, CRP, PRCAL #### [facility] [address] [place] [address] 80790 Senior Vice President And Chief Information Officer: Sabas Madoff, MDGFR, Amer>60Normal>60MerKaiser Foundation HospitalComment on above:Performed By: #### CDP, BMP, CRP, PRCAL #### [facility] [address] [place] [address] 46379 Senior Vice President And Chief Information Officer: Sabas Lamb MDGFR,non Amer>60Normal>60MerKaiser Foundation HospitalComment on above:Performed By: #### CDP, BMP, CRP, PRCAL #### [facility] [address] [place] [address] 37219 Senior Vice President And Chief Information Officer: Sabas Lamb MDGlucose [Mass/Vol]87 mg/hQXxgcsm51-82JlzqbSanta Teresita HospitalComment on above:Performed By: #### CDP, BMP, CRP, PRCAL #### [address] [address] Senior Vice President And Chief Information Officer: HILDA Burtotassium [Moles/Vol]3.9 mmol/LNormal3.7-5.3 [facility] CenterComment on above:Performed By: #### CDP, BMP, CRP, PRCAL #### [facility] Related Content Database (RCDb) [address] [place] [address] 11180 Senior Vice President And Chief Information Officer: LAURA Burtodium [Moles/Vol]141 mmol/AMusraf675-752WwhnsAdena Fayette Medical CenterComment on above:Performed By: #### CDP, BMP, CRP, PRCAL #### [facility] Related Content Database (RCDb) [address] [place] [address] 82139 Senior Vice President And Chief Information Officer: Sabas Lamb MDUrea nitrogen [Mass/Vol]14 mg/dLNormal6-20[facility] CenterComment on above:Performed By: #### CDP, BMP, CRP, PRCAL #### [facility] Related Content Database (RCDb) [address] [place] [address] 11363 Senior Vice President And Chief Information Officer: MOE Burt/CRE HariOT REPORTEDNormal9-20[facility] CenterComment on above:Performed By: #### CDP, BMP, CRP, PRCAL #### [facility] [address] [place] [address] 79133 Senior Vice President And Chief Information Officer: LAURA Burttaging:NOT REPORTEDNormalAdena Fayette Medical CenterComment on above:Performed By: #### CDP, BMP, CRP, PRCAL #### [facility] [address] [place] [address] 34511 Senior Vice President And Chief Information Officer: GIOVANNY Burt-Reactive Proteinon 14-19-4756OAU [Mass/Vol] 40.6 mg/LHigh0.0-5.0[facility] Medical CenterComment on above:Performed By: #### CDP, BMP, CRP, PRCAL #### [facility] Related [facility] (RCDb) [address] [place] [address] 78729 Senior Vice President And Chief Information Officer: GIOVANNY Burt with Diffon [id number]. Basophil0.03 k/uL Normal0.00-0.20[facility] Medical CenterComment on above:Performed By: #### CDP, BMP, CRP, PRCAL #### [facility] Related [facility] (RCDb) [address] [place] [address] 25694 Senior Vice President And Chief Information Officer: Bridgette Burt.Imm.Granulocyte0.05 k/uLNormal0.00-0.30[facility] CenterComment on above:Performed By: #### CDP, BMP, CRP, PRCAL #### [facility] Related Content Database (RCDb) [address] [place] [address] 04523 Senior Vice President And Chief Information Officer: Bridgette Burt.Neutrophil (Seg)13.74 k/uLHigh1.50-8.10[facility] CenterComment on above:Performed By: #### CDP, BMP, CRP, PRCAL #### [facility] Related Content Database (RCDb) [address] [place] [address] 22099 Senior Vice President And Chief Information Officer: Sabas Lamb MDBasophils/100 WBC (Bld)0 %Normal0-2MercSeton Medical CenterComment on above:Performed By: #### CDP, BMP, CRP, PRCAL #### [address] [address] Senior Vice President And Chief Information Officer: STACEY Burtosinophils (Bld) [#/Vol]10*3/uLNormal0.00-0.44 [facility] CenterComment on above:Performed By: #### CDP, BMP, CRP, PRCAL #### [address] [address] Senior Vice President And Chief Information Officer: STACEY Burtosinophils/100 WBC (Bld)0 %Low1-4[facility] Medical CenterComment on above:Performed By: #### CDP, BMP, CRP, PRCAL #### [place] [address] Senior Vice President And Chief Information Officer: Sabas Lamb MDErythrocyte distribution width (RBC) [Ratio]12.1 %Dxecex35.8-14.4[facility] Medical CenterComment on above:Performed By: #### CDP, BMP, CRP, PRCAL #### [address] [address] Senior Vice President And Chief Information Officer: Sabas Lamb MDHematocrit (Bld) [Volume fraction]35.7 %Low 36.3-47.1MSanta Teresita HospitalComment on above:Performed By: #### CDP, BMP, CRP, PRCAL #### [facility] Related Content Database (RCDb) [address] [place] [address] 20698 Senior Vice President And Chief Information Officer: Sabas Lamb MDHemoglobin (Bld) [Mass/Vol]11.5 g/dLLow11.9-15.1 [facility] CenterComment on above:Performed By: #### CDP, BMP, CRP, PRCAL #### [facility] Related Content Database (RCDb) [address] [place] [address] 56880 Senior Vice President And Chief Information Officer: Sabas Lamb MDImmature granulocytes (Bld) [#/Vol]0 %Normal0 [facility] CenterComment on above:Performed By: #### CDP, BMP, CRP, PRCAL #### [facility] Related Content Database (RCDb) [address] [place] [address] 02575 Senior Vice President And Chief Information Officer: Aydin Burtmphocytes (Bld) [#/Vol]1.21 10*3/uLNormal 1.10-3.70[facility] CenterComment on above:Performed By: #### CDP, BMP, CRP, PRCAL #### [facility] Related Content Database (RCDb) [address] [place] [address]18 Senior Vice President And Chief Information Officer: Rae Burthocytes/100 WBC (Bld)8 %Wys08-61DrbqfAdena Fayette Medical CenterComment on above:Performed By: #### CDP, BMP, CRP, PRCAL #### [facility] Related Content Database (RCDb) [address] [place] [address] Senior Vice President And Chief Information Officer: SILVIA BurtCH (RBC) [Entitic mass]31.8 tvFcfmoe49.2-33.5 [facility] Medical CenterComment on above:Performed By: #### CDP, BMP, CRP, PRCAL #### [facility] Related Content Database (RCDb) [address] [place] [address]906 Senior Vice President And Chief Information Officer: BREA BurtC (RBC) [Mass/Vol]32.2 g/xJTihscz66.4-34.8 [facility] CenterComment on above:Performed By: #### CDP, BMP, CRP, PRCAL #### [facility] Related Content Database (RCDb) [address] [place] [address] 60569 Senior Vice President And Chief Information Officer: SILVIA BurtCV (RBC) [Entitic vol]98.6 pBWcowjv33.6-102.9 [facility] CenterComment on above:Performed By: #### CDP, BMP, CRP, PRCAL #### [facility] Related Content Database (RCDb) [address] [place] [address]016 Senior Vice President And Chief Information Officer: SILVIA Burtonocytes (Bld) [#/Vol]1.01 10*3/uLNormal 0.10-1.20[facility] Medical CenterComment on above:Performed By: #### CDP, BMP, CRP, PRCAL #### [facility] Related Content Database (RCDb) [address] [place] [address]99 Senior Vice President And Chief Information Officer: SILVIA Burtonocytes/100 WBC (Bld)6 %Normal3-12A[facility] Medical CenterComment on above:Performed By: #### CDP, BMP, CRP, PRCAL #### [facility] Related Content Database (RCDb) [address] [place] [address] 00465 Senior Vice President And Chief Information Officer: Andrés Burtophil (Seg)86 %Aulb62-23ZkukbAdena Fayette Medical CenterComment on above:Performed By: #### CDP, BMP, CRP, PRCAL #### [facility] Related Content Database (RCDb) [address] [place] [address] Senior Vice President And Chief Information Officer: Sabas Lamb MDNRBC Automated0.0 per 100 WBCNormal0.0A[facility] Fayette Medical CenterComment on above:Performed By: #### CDP, BMP, CRP, PRCAL #### [facility] Related Content Database (RCDb) [address] [place] [address] Senior Vice President And Chief Information Officer: Jeremi Burt mean volume (Bld) [Entitic vol]11.7 fL Normal8.1-13.5[facility] Medical CenterComment on above:Performed By: #### CDP, BMP, CRP, PRCAL #### [facility] Related Content Database (RCDb) [address] [place] [address] Senior Vice President And Chief Information Officer: HILDA Burtlatelets (Bld) [#/Vol]268 10*3/eYBjjxch901-503 [facility] CenterComment on above:Performed By: #### CDP, BMP, CRP, PRCAL #### [facility] Related Content Database (RCDb) [address] [place] [address]29 Senior Vice President And Chief Information Officer: KATY Burt (Bld) [#/Vol]3.62 10*6/uLLow3.95-5.11[facility] HospitalComment on above:Performed By: #### CDP, BMP, CRP, PRCAL #### [facility] [address] [place] [address] 12748 Senior Vice President And Chief Information Officer: ALICIA Burt (Bld) [#/Vol]16.1 10*3/uLHigh3.5-11.3[facility] HospitalComment on above:Performed By: #### CDP, BMP, CRP, PRCAL #### [facility] [address] [place] [address]279 Senior Vice President And Chief Information Officer: Claudio Burt PerformedNOT REPORTEDNormalAdena Fayette Medical CenterComment on above:Performed By: #### CDP, BMP, CRP, PRCAL #### [facility] [address] [place] [address] 32368 Senior Vice President And Chief Information Officer: Alejandro Burt (Bld) [#/Vol]NOT REPORTEDNormalAdena Fayette Medical CenterComment on above:Performed By: #### CDP, BMP, CRP, PRCAL #### [facility] [address] [place] [address] 70386 Senior Vice President And Chief Information Officer: KATY Burt morphology finding Nom (Bld)NOT REPORTED NormalAdena Fayette Medical CenterComment on above:Performed By: #### CDP, BMP, CRP, PRCAL #### [facility] [address] [place] [address]60 Senior Vice President And Chief Information Officer: ALICIA Burt MorphologyNOT REPORTEDNormalAdena Fayette Medical CenterComment on above:Performed By: #### CDP, BMP, CRP, PRCAL #### [facility] [address] [place] [address]148 Senior Vice President And Chief Information Officer: Sabas Lamb, MDCT HEAD WO CONTRASTon 26-69-8233DL HEAD WO CONTRASTEXAMINATION: CT OF THE HEAD [...] Signed by: Cas Contreras MD 10/23/18 Final resultNormalMerKaiser Foundation HospitalMRI BRAIN W CONTRASTon 49-85-5033FXY BRAIN W CONTRASTEXAMINATION: MRI OF THE BRAIN [...] Signed by: Freddie Maldonado MD 10/23/18 Final resultNormalAdena Fayette Medical CenterOPERATIVE REPORTon 10-23-[address] [address] OPERATIVE REPORT PATIENT NAME: LOU FINLEY : 1960 MED REC NO: [id number] ROOM: [facility] ACCOUNT NO: [id number] ADMIT DATE: 10/22/2018 PROVIDER: Meera Rojas DATE [...] with lightheadedness and coughing. She presented at [facility] ER earlier today due to these complaints and was found to have a sizeable right-sided subdural hematoma. She was transferred to [place] for further management. She was reported to be neurologically intact when at the outside hospital, but upon arrival to the ER at [place], she was noted to have some mild [...] evidence of complication. MEERA BOB DL/V_SSREJ_I Doc#: [id number] CC:NormalAdena Fayette Medical CenterProcalcitoninon 78-94-8281Kjllcuzvglmaj 0.06 ng/mLNormal<0.09Aden[facility] Fayette Medical CenterComment on above:Result Comment: Suspected Sepsis: 0.09-0.49 ng/mL [...] entered into the Change in Procalcitonin Calculator ([email or web address]) to determine the patient's Mortality Risk PrognosisPerformed By: #### CDP, BMP, CRP, PRCAL #### [facility] [address] [place] [address] Senior Vice President And Chief Information Officer: MARIAM Burt CHEST PORTABLEon 13-53-7883WI CHEST PORTABLE EXAMINATION: ONE XRAY VIEW OF [...] by: Jose Carlos Carlson MD 10/23/18 Final resultWadsworth-Rittman HospitalPlatelets,Transfuseon 15-27-6117Lvbvcqato,TransfuseUnit Number [id number] Blood Component Type Leukocyte Reduced Irradiated Plateletpheresis Unit Division 00 Status of Unit TRANSFUSED Transfusion Status OK TO [facility] CENTERUSENSelect Medical Specialty Hospital - Cincinnati NorthComment on above:Performed By: #### TPLT #### [employer] [address] [place] [address] [phone] Senior Vice President And Chief Information Officer: Sabas Lamb MDType + Screenon 96-40-4386Povt + ScreenSample Expiration 10/25/2018 Arm Band Number BE [id number] ABO/Rh(D) A POSITIVE Antibody Screen NEGATIVEWadsworth-Rittman HospitalComment on above: Performed By: #### TYS #### [employer] [address] [place] [address] Senior Vice President And Chief Information Officer: ROSI Burtischarge Summaryon 36-31-9468Dwxqsacaf Summary MR#: [id number] [facility] Lou [facility] Admitted: 06/05/2017Discharged: 06/06/2017 Date of : 1960 Physician: Rachele Post DO DISCHARGE SUMMARYDISCHARGE SERVICE: CCU.PRIMARY DIAGNOSIS: Acute coronary syndrome.SECONDARY DIAGNOSIS: Migraine.PROCEDURE:Percutaneous coronary intervention with stent placement.HOSPITAL COURSE: This is a 56-year-old female with past medical history ofmigraines, who was transferred from [facility]. She presented therewith chest discomfort and was found to have EKG abnormalities. In the lastmonth, the patient reported 3 episodes of chest pain with the latest being. The chest pain was also associated with sweating, shortnessof breath, and nausea. She was transferred from [facility] andadmitted to the CCU. The patient's troponins were remained negative, butwith her chest pain and EKG changes, she was taken to the labor [facility] this showed 90% stenosis in the [...] Dict: 06/06/2017/02:36 P/Larissa Key Trans: 06/07/2017 09:17 A/Kong_JN:[id number]: Ryan Arevalo M.D. [address] [facility] [address] Kel Bueno M.D. [address] [place] [address] of [facility] Medical CenterBASIC METABOLIC PANELon 42-51-6057Kcwbmuj2.3 mg/dLNormal 8.6-10.3The [facility] Warren HospitalComment on above:Order Comment: UnknownPerformed By: #### 10994, 42038 ####[facility] [place] [address], YYDXynzkjyc117 mmol/UVprkqt35-929Ffr [facility] HospitalComment on above:Order Comment: Unknown Performed By: #### 11666, 86138 ####[facility] [place] [address], QVMKN659 mmol/QHrflru21-84Snb [facility] HospitalComment on above:Order Comment: UnknownPerformed By: #### 36120, 27598 ####[facility] [place] [address], USACreatinine0.72 mg/dLNormal0.60-1.20The [facility] Warren HospitalComment on above:Order Comment: UnknownPerformed By: #### 25575, 31768 ####[facility] [place] [place] [address], [facility] eGFR (black)mL/min/{1.73_m2}Normal>60The [facility] Comment on above:Order Comment: UnknownPerformed By: #### 55885, 68287 ####[facility] [place] [address], [facility] eGFR (non-black)mL/min/{1.73_m2}Normal>60The [facility] Comment on above:Order Comment: UnknownPerformed By: #### 77405, 87706 ####[facility] [place] [address], [place] Glucose mass conc89 mg/tSSnmdbh72-001Zfw [facility] Comment on above:Order Comment: UnknownPerformed By: #### 55215, 96875 ####[facility] [facility] [place] [address], [facility] Potassium molar conc3.8 mmol/LNormal3.5-5.1The [facility] HospitalComment on above:Order Comment: UnknownPerformed By: #### 72566, 85166 ####[address] [place] [address], [facility] Bxrpjv401 mmol/LNrybao255-032Nzs [facility] HospitalComment on above:Order Comment: UnknownPerformed By: #### 81990, 14171 ####[address] [place] [address], [facility] CENTERUrea vcuqaqhh22 mg/dLNormal7-25The [facility] HospitalComment on above:Order Comment: UnknownPerformed By: #### 46115, 85854 ####[address] [place] [address], [facility] CENTERCB COMPLETE BLOOD COUNTon 40-13-2469Vhvnefzuerd distribution width Auto Ratio (RBC)13.3 %Uwriee56.5-16.[address] [facility] HospitalComment on above:Order Comment: Unknown Performed By: #### 85746 ####[address] [place] [address], [facility] MEDICAL CENTERErythrocytes (RBC)4.43 mill/xt6Itlklz2.50-5.50The [facility] HospitalComment on above:Order Comment: Unknown Performed By: #### 64980 ####[address] [place] [address], [facility] MEDICAL CENTERHematocrit (HCT)40.9 %Cfpvbx81.0-48.0The [facility] HospitalComment on above:Order Comment: UnknownPerformed By: #### 22949 ####[address] [place] [address], [facility] CENTERHemoglobin mass conc (Bld)13.6 g/fRIncxtw86.0-15.0The [facility] HospitalComment on above:Order Comment: UnknownPerformed By: #### 86191 ####[facility] [place] [address], RGJYDC02.7 zvLmhqah18.0-32.0The [facility] Comment on above:Order Comment: UnknownPerformed By: #### 78687 ####[facility] [facility] [place] [address], [facility]USHINGHC mass conc (RBC)33.2 g/wZStlinv86.0-36.0The [facility] HospitalComment on above:Order Comment: UnknownPerformed By: #### 36147 ####[facility] [facility] [place] [address], QZWBBC28.2 mVOwvlae21.0-100.[address] [facility] HospitalComment on above:Order Comment: Unknown Performed By: #### 34337 ####[facility] [facility] [place] [address], [facility] MEDICAL CENTERPLAT TGC475 Thou/tp1Burkfu268-565Elw [facility] HospitalComment on above:Order Comment: UnknownPerformed By: #### 33707 ####[facility] [facility] [place] [address], [facility] MEDICAL CENTERWBC (Leukocytes)10.8 Thou/pa4Uyxc6.0-10.0The [facility] HospitalComment on above:Order Comment: UnknownPerformed By: #### 68681 ####[facility] [facility].[address] Cardiovascular Lab Reporton 48-05-6074Zlbhpyolpoeggi Lab ReportUnHenry County Hospital [facility] [place] MR #: [id number] Physician: Blayne Zhao M.D.Medicine Service Date: 06/05/2017Division of Birthdate: 1960Cardiology Room #: 3CD [id number] CardiovascularVal[facility] Harlingener[address] [place], [place] [address]Fcdnr Fax Cardiovascular Laboratory ReportINDICATION: Lou Finley is [...] benefits.She signed informed consent. She was broughtto labor mediator in a fastingstate. The right groin area was prepped and draped in usual fashion.Using micropuncture technique, the right common femoral artery wasaccessed. The inner cannula was advanced and limited right femoralangiography was performed followed by upsizing to a 5-Spanish x 11 cmsheath.Bilateral selective carotid angiography was then performed using5-Spanish JL4 and JR4 diagnostic catheters. Catheters were removed.Heparin was administered intravenously and therapeutic ACT confirmed duringthe procedure. A 5-Spanish JR4 guiding catheter was advanced and used [...] stentfollowed by post dilatation using [place] [employer] [place] 3.0 x 20 mm noncompliantballoon inflated at [...] 06/05/2017/03:03 P/Blayne Fonseca M.D.Date Trans: 06/06/2017 07:01 A/mmoDN_JN:[id number]: Ryan Arevalo M.D. [address] [address] Kel Bueno M.D. [facility] [place] [id number] HealthMAGNESIUM BLOODon 01-30-5481Irzunlvxh6.9 mg/dLNormal1.9-2.7The [facility] HospitalComment on above:Performed By: #### 26941 ####[facility] [facility] [place] [address], [facility] APTTon 86-69-6780oQEQ25.6 yEuusrm52.0-35.0The [facility] HospitalComment on above:Order Comment: No: Do not add [...] BE USED FOR THIS PURPOSE.Performed By: #### 26775, 46547 ####[facility] [facility] [place] [address], [facility] CENTERBASIC METABOLIC PANELon 06-05-2017 Calcium8.9 mg/dLNormal8.6-10.3The [facility] HospitalComment on above:Order Comment: No: Do not add to previous drawPerformed By: #### 82337 ####[facility] [place] [address], [place] Tqafywyw132 mmol/LZkonki47-066Ftm [facility] HospitalComment on above:Order Comment: No: Do not add to previous drawPerformed By: #### 97487 ####[facility] [place] [address], [place] CO228 mmol/AMaixry09-49Yez [facility] HospitalComment on above: Order Comment: No: Do not add to previous drawPerformed By: #### 73758 ####[facility] [place] [address], [place] Creatinine0.76 mg/dLNormal0.60-1.20The [facility] Comment on above:Order Comment: No: Do not add to previous drawPerformed By: #### 58385 ####[facility] [place] [address], USAeGFR (black)mL/min/{1.73_m2}Normal>60The [facility] HospitalComment on above:Order Comment: No: Do not add to previous drawPerformed By: #### 46761 ####[facility] [place] [address], USAeGFR (non-black)mL/min/{1.73_m2}Normal>60The [facility] HospitalComment on above:Order Comment: No: Do not add to previous draw Performed By: #### 99390 ####[facility] [place] [place] [address], [facility] MEDICAL CENTERGlucose mass conc88 mg/wAYrfsee21-653Mhy [facility] HospitalComment on above:Order Comment: No: Do not add to previous drawPerformed By: #### 79504 ####[facility] [facility].[place] [address], USAPotassium molar conc3.8 mmol/LNormal3.5-5.[address] [facility] HospitalComment on above:Order Comment: No: Do not add to previous drawPerformed By: #### 36155 ####[facility] [place] [address], QEXJurxkj994 mmol/LNormal 136-145The [facility] HospitalComment on above:Order Comment: No: Do not add to previous drawPerformed By: #### 58791 ####[facility] [place] [address], [facility] MEDICAL CENTERUrea swedjwug38 mg/dL Normal7-25The [facility] HospitalComment on above:Order Comment: No: Do not add to previous drawPerformed By: #### 78854 ####[address] [place] [address], [facility]ICAL CENTERCBC COMPLETE BLOOD COUNTon 86-05-2048Ysulrraoysr distribution width Auto Ratio (RBC)13.9 %Normal 11.5-16.9The [facility] HospitalComment on above:Order Comment: No: Do not add to previous drawPerformed By: #### 98187 ####[facility] [place] [address], [facility] MEDICAL CENTERErythrocytes (RBC)4.66 mill/ha7Wrzmnp9.50-5.50The [facility] HospitalComment on above: Order Comment: No: Do not add to previous drawPerformed By: #### 96134 ####[facility] [facility] [place] [address], [facility] Hematocrit (HCT)42.9 %Baglcb28.0-48.0The [facility] Comment on above:Order Comment: No: Do not add to previous drawPerformed By: #### 69018 ####[address] [place] [address], [facility]ICAL CENTERHemoglobin mass conc (Bld)14.2 g/kXRpngep91.0-15.0The [facility] HospitalComment on above:Order Comment: No: Do not add to previous drawPerformed By: #### 46418 ####[facility] [address], ALGMAA57.5 ksAgwqlk79.0-32.0The [facility] HospitalComment on above:Order Comment: No: Do not add to previous drawPerformed By: #### 30872 ####[facility] [facility] [place] [address], [facility]USHINGHC mass conc (RBC)33.1 g/ySCovvfm44.0-36.[address] [facility] HospitalComment on above:Order Comment: No: Do not add to previous drawPerformed By: #### 27122 ####[facility] [facility] [place] [address], FZERUW62.0 nKNxcbvv35.0-100.[address] [facility] HospitalComment on above:Order Comment: No: Do not add to previous drawPerformed By: #### 05878 ####[facility] [facility] [place] [address], [facility] MEDICAL CENTERPLAT BIC365 Thou/fm7Ojdshp 100-400The [facility] HospitalComment on above:Order Comment: No: Do not add to previous drawPerformed By: #### 80069 ####[facility] [place] [address].[place] [address], [facility] MEDICAL CENTERWBC (Leukocytes)6.6 Thou/bx2Hpjqwz9.0-10.0The [facility] HospitalComment on above: Order Comment: No: Do not add to previous drawPerformed By: #### 22407 ####[facility] [facility] [place] [address], [facility] Erythrocyte distribution width Auto Ratio (RBC)13.1 %Jomiii20.5-16.9The [facility] HospitalComment on above:Order Comment: No: Do not add to previous drawPerformed By: #### 23396 ####[facility] [place] [address], [facility] MEDICAL CENTERErythrocytes (RBC)4.49 mill/mm3 Normal3.50-5.50The [facility] HospitalComment on above:Order Comment: No: Do not add to previous drawPerformed By: #### 12735 ####[facility] [facility] [place] [address], [facility] MEDICAL CENTERHematocrit (HCT) 41.7 %Pravtd55.0-48.0The [facility] HospitalComment on above: Order Comment: No: Do not add to previous drawPerformed By: #### 06419 ####[facility] [place] [address].[place] [address], [facility] Hemoglobin mass conc (Bld)13.9 g/qZAcignt40.0-15.0The [facility] HospitalComment on above:Order Comment: No: Do not add to previous draw Performed By: #### 34423 ####[facility] [place] [address].[place] [address], UBFNLD34.1 xgIfpxcy34.0-32.0The [facility] HospitalComment on above:Order Comment: No: Do not add to previous draw Performed By: #### 33456 ####[facility] [facility] [place] [address], [facility]ICAL CENTERMCHC mass conc (RBC)33.5 g/vIXrfunz57.0-36.0The [facility] HospitalComment on above:Order Comment: No: Do not add to previous drawPerformed By: #### 97465 ####[facility] [place] [address].[place] [address], SZVKTD00.8 qBUbprmn97.0-100.0The [facility] HospitalComment on above:Order Comment: No: Do not add to previous drawPerformed By: #### 37746 ####[facility] [place] [address], [facility] REGION[facility] MEDICAL CENTERPLAT HSK391 Thou/oy9Swcwar031-[address] [facility] HospitalComment on above:Order Comment: No: Do not add to previous drawPerformed By: #### 62630 ####[facility] [place] [address], [facility] CENTERWBC (Leukocytes)6.7 Thou/fd4Tdifpn1.0-10.0The [facility] HospitalComment on above: Order Comment: No: Do not add to previous drawPerformed By: #### 58053 ####[facility] [facility].[address] History and Physicalon 05-77-1968Tvtefqk and PhysicalMR#: [id number] Pt[facility] Name[facility] Lou Finley Admitted: 06/05/2017 Date of : 1960 Attending Physician: Wayne Donis MD Room #: 3CD [id number] Discharge Date: HISTORY AND PHYSICALCHIEF COMPLAINT: Chest pain.HISTORY OF PRESENT ILLNESS: The patient is a 56-year-old female withhistory of migraines, who was transferred from [facility] after shepresented there with chest discomfort and [...] leads, so [facility]. Her troponin there was negative and EKG again asmentioned, was abnormal with T wave inversion in the lateral leads. [facility] and[facility]. When I saw her on the floor, she had minimal discomfort in [facility]. She said that after taking a medication [...] or drug use.FAMILY HISTORY: Father of an MA at age79 and mother of MA whenshe was having an open heart surgery at age 57.REVIEW OF SYSTEMS: A 10-point review of systems was done, and pertinentpositives and negatives mentioned in the HPI.MEDICATIONS: The patient only takes Imitrex for migraines as needed.PHYSICAL EXAMINATION: VITAL SIGNS: Temperature 98, pulse 75, dopclqhfzqpm38, blood pressure 129/80, and saturating 100% on [...] Dict: 06/05/2017/03:33 A/ROSI Buschate Trans: 06/05/2017 04:23 Asif/Kong_JN:[id number] [facility] HospitalPROTHROMBIN TIMEon 97-09-6464XLW Coag RelTime (PPP)0.98 {INR}Normal0.91-1.16[facility] Comment on above:Order Comment: No: Do not [...] ACTION, CLINICALEFFECTIVENESS, AND OPTIMAL THERAPEU TIC RANGE. [id number];108:231S-246S.Performed By: #### [id number], [id number] ####[facility] [facility] [place] [address], [facility] Prothrombin time (PT) Coag time (PPP)13.0 tHgkocz25.3-14.8[facility] HospitalComment on above:Order Comment: No: Do not add to previous drawResult Comment: ALL RESULTS MUST BE INTERPRETED WITH RESPECT TO BLOOD DRAWING ARTIFACTOR DILUTION ERROR OF ANTICOAGULANT AT THE TIME OF SAMPLING. Performed By: #### [id number], [id number] ####[facility] [facility] [place] [address], USATROPONIN-Ion 17-31-2984Sbgnxend I.cardiac mass conc0.03 ng/mLNormal0.00-0.04[facility] HospitalComment on above:Order Comment: No: Do not add to previous drawResult Comment: REFERENCE RANGES: 0.00 - 0.04 ng/ml NORMAL 0.05 - 0.50 ng/ml INDETERMINATE > 0.50 ng/ml CONSISTENT WITH AN M.I.Performed By: #### [id number] ####[facility] [facility] [place] [address], USATroponin I.cardiac mass conc0.01 ng/mLNormal0.00-0.04[facility] HospitalComment on above:Order Comment: No: Do not add to previous drawResult Comment: REFERENCE RANGES: 0.00 - 0.04 ng/ml NORMAL 0.05 - 0.50 ng/ml INDETERMINATE > 0.50 ng/ml CONSISTENT WITH AN M.I.Performed By: #### [id number] ####[facility] [place] [address], USATroponin I.cardiac mass conc0.02 ng/mLNormal0.00-0.04[facility] HospitalComment on above:Order Comment: No: Do not add to previous drawResult Comment: REFERENCE RANGES: 0.00 - 0.04 ng/ml NORMAL 0.05 - 0.50 ng/ml INDETERMINATE > 0.50 ng/ml CONSISTENT WITH AN M.I.Performed By: #### [id number] ####[facility] [place] [address], [facility] Vital Signs Date TimeVital SignValuePerforming BtjwpuzspDvibuifu49-35-2344 11:15-0400 Diastolic blood xxwipylm07 mm[Hg]Elvira Scherer DO Work Phone: [facility] SYSTEMXWSPTU61-87-4232 11:15-0400Heart rate75 /minElvira Scherer DO Work Phone: [facility] SYSTEMREZWSG62-26-1451 11:15-0400 Respiratory rate16 /minElvira Scherer DO Work Phone: [place] [address]-14-2023 11:15-8475JbO1% (BldA) [Mass fraction]97 %Elvira Scherer DO Work Phone: [facility]08-14-2023 11:15-0400Systolic blood ozuaspoi445 mm[Hg]Elvira Scherer DO Work Phone: [facility] SYSTEMGECSSI78-33-5459 10:48-0400Body nbgdlpurskv15.91 [degF]Elvira Scherer DO Work Phone: [facility] [place] [address]UHOIJB02-73-4188 09:50-0400Body .9 cmElvira Scherre DO Work Phone: [place] [address]-14-2023 09:50-0400Body mass index (BMI) [Ratio]19.84 kg/a3HfanmElvira Scherer DO Work Phone: [facility] [place] [address]WQELVM87-97-2899 09:50-0400Body tjojed08.63 kgElvira Scherer DO Work Phone: [facility]PITALClio06-26-2023 10:15-0400Diastolic blood mm[Hg]Elvira Scherer DO Work Phone: [facility] [employer] DIHOPP25-86-4079 10:15-0400Heart rate66 /minElvira Scherer DO Work Phone: [facility]PITALR[facility] [employer] TGZAVK08-28-2426 10:15-6477XbD0% (BldA) [Mass fraction]97 %Elvira Scherer DO Work Phone: [facility]ITALClio06-26-2023 10:15-0400Systolic blood opuowszi535 mm[Hg]Elvira Scherer DO Work Phone: [facility] Ogone06-26-2023 09:41-0400Body qzcdplqrjpe14 [degF]Elvira Scherer DO Work Phone: [facility]ITALR[facility] FOEXDR10-57-8701 09:41-0400 Respiratory rate18 /minElvira Scherer DO Work Phone: [facility]ITALR[facility] IBGWOD53-52-9320 08:20-0400Body mass index (BMI) [Ratio]20.18 kg/a4KrlxsElvira Scherer DO Work Phone: [facility] [employer] TCSRZQ43-47-0565 08:20-0400Body ytrefa81.44 kgElvira Scherer DO Work Phone: [facility] [employer] UJSHQH19-07-4927 11:32-0400Body cmskex287.9 cmElvira Scherer DO Work Phone: [facility]ITALHealthyOut [facility]THOlery [facility] Encounters Encounter DateEncounter TypeCare ProviderFacilityStart: 01-19-2023 End: 18-01-1481lsiykugvefXIJHIBF M HOYMercy Brandon HospitalStart: 01-19-2023 End: 80-64-9187Rmcugwswzs hospital visit by physicianElvira Scherer DO Work Phone: [place] ORStart: 12-01-2022 End: 84-66-3916qcjfnrtlgiDQHZZEP M HOYMercy Brandon HospitalStart: 12-01-2022 End: 25-28-0188Phltpbkxuv hospital visit by physicianElvira Scherer DO Work Phone: mthz ORStart: 09-09-2022 End: 45-37-8659cpgfmfmnvlDZ RYAN HOY .Facility:U9Zkxzf: 12-47-4263Vddyarsdh for general adult medical examination without abnormal findingsDR RYAN HOY . [facility]Start: 08-21[facility]2022 End: 10-57-2940kfullwbvpsCM RYAN HOY .Facility:C4Ugiup: 08-21-2022 End: 17-99-4271Wqivovkvp for general adult medical examination without abnormal findingsDR RYAN HOY .Facility:K9Gexli: 08-15-2022 End: 60-68-2294kmlptxkjadXI RYAN HOY .Facility:Z6Cltde: 10-22-2018 End: 92-06-6112Dctbqdtiqs and management of inpatientMEERA Barrios BenInland Valley Regional Medical Centertart: 06-05-2017 End: 87-28-1182Igjalxuzgg and management of inpatientDAALMA Germain HARINDERLORETTA Facility:[facility] Procedures DateProcedureProcedure DetailPerforming ClinicianStart: 89-86-6652HW CONSULT TO HOME CARE NEEDSDAVID BOBStart: 41-91-8545DAXIWSCOA PATIENTDAVID LEWISStart: 13-88-0055PZQEQSYM OXYGEN THERAPY PROTOCOLDAVID BOBStart: 93-07-2958Oybgo metabolic panel calcium totalDAVID LEWISStart: 41-24-3215Tkntd count complete auto&auto difrntl wbcDAVID BOBStart: 24-88-2111IYWJUI AND OUTPUTDAMILADIS ROJAS Start: 14-63-9151CWYPGCM HEELS OFF OF BEDDAVIPorter ROJASStart: 62-80-8731DVJX OF BED 60 DEGREES OR LESSDAVIPorter ROJASStart: 38-60-3884DSSOCBQ COMMUNICATIONDACAROLAD BOB Start: 89-21-4302RJXJ PATIENTDAVID BOBStart: 22-75-3509VJLLBWPNZMDAO NURSING CARE ORDER (SPECIFY)MEERA LEWISStart: 64-84-3455NQLQEUDW OXYGEN THERAPY PROTOCOL MEERA LEWISStart: 29-93-4853Pkpjg panelDAVID LEWISStart: 57-11-7533Xecuy metabolic panel calcium totalDAVID LEWISStart: 19-22-1724Ktpbz count complete auto&auto difrntl wbcDAVID LEWISStart: 47-74-0227LFBYORIJ SPECIMENDAVIPorter ROJAS Start: 19-82-8407Grzl tst prsmv instrmnt chem analyzers pr dateDAVID LEWISStart: 47-85-4819CHNYGT AND OUTPUTDAVID LEWISStart: 62-57-9496Fxpmuuecnbr timeDAVID LEWISStart: 21-52-8233Yenwdsjwivkcuu time partial plasma/whole bloodDAVID BOB Start: 09-61-4033Jhnsk metabolic panel calcium totalDAVID LEWISStart: 10-24-2018 Blood count complete auto&auto difrntl wbcDAVID LEWISStart: 16-76-4317UAAXHDQP OXYGEN THERAPY PROTOCOLDAMILADIS ROJASStart: 59-55-9124XPKW GENERALDAVID LEWISStart: 18-75-3404EVFSGB AND OUTPUTDAVID LEWISStart: 69-16-0608Juh brain brain stem w/contrast materialDAVID BOBStart: 61-40-6015QUWTWKT COMMUNICATIONDAMILADIS ROJAS Start: 29-23-6963Fmjkgsbabf exam chest single viewDAVID LEWISStart: 10-23-2018 INITIATE OXYGEN THERAPY PROTOCOLDAVID BOBStart: 59-71-4373Sylwa dip stick/tablet rgnt auto w/o microscopyDAVID LEWISStart: 26-33-9389Vi head/brain w/o contrast materialDAVID LEWISStart: 90-97-3868Hgzil metabolic panel calcium totalDAVID LEWISStart: 04-35-9573Rvknz count complete auto&auto difrntl wbcDAVID LEWISStart: 52-27-6107R-reactive proteinDAVID LEWISStart: 10-23-2018 Procalcitonin (pct)MEERA ROJASStart: 31-23-7431QFPTKT AND OUTPUTDAVID BOB Start: 51-61-7712XBDRBISK PATIENTDAVID LEWISStart: 00-61-2626QDPNOCWF INDWELLING CATHETHERDAVID LEWISStart: 92-51-8117VFDIUQA HOBDAVID LEWISStart: 10-23-2018 FULL CODEDAVID LEWISStart: 37-06-3244MAUBLWZQ OXYGEN THERAPY PROTOCOLDAVID BOB Start: 88-29-9018KMNXZK AND OUTPUTDAVID LEWISStart: 72-39-8453OHQZB CHECKSDAVIPorter LEWISStart: 41-71-0029ZG EVAL AND TREATDAVID LEWISStart: 80-49-2914ULEZL INTERMITTENT PNEUMATIC COMPRESSION DEVICEDAVID LEWISStart: 54-24-0543IP EVAL AND TREATDAVID LEWISStart: 79-29-3096TMIDTPD PRECAUTIONSDAVID BOBStart: 79-00-2365OEY EVAL AND TREATDAVID BOBStart: 32-19-3675VAXXABR CESSATION EDUCATIONDAMILADIS ROJASStart: 66-55-6050TDFFL SIGNSDAVIPorter ROJASStart: 10-23-2018 WOUND CAREDAVIPorter ROJASStart: 83-46-8079PAXNLUBOL PLATELETSDAMILADIS ROJASStart: 95-97-4467Yzyihkhaidh blood/blood componentsDAMILADIS ROJASStart: 78-18-3546IMATMAZ STATUS (FROM ED OR OR/PROCEDURAL)MEERA ROJASStart: 77-41-3788JEYE AND SCREEN MEERA Garciaart: 50-67-5602Rct routine ecg w/least 12 lds w/i&rDAVID BOB Start: 48-07-3849QN CONSULT TO NEUROSURGERYDAMILADIS ROJASStart: 15-73-4800JDNTEMQO OF 1 COR ART WITH 2 DRUG-ELUT, PERC APPROACHGEORGE V MOUKARBELStart: 06-05-2017 FLUOROSCOPY OF MULTIPLE CORONARY ARTERIES USING [facility] CONTRASTGEORGE V MOUKARBEL Plan of Treatment DateCare ActivityDetailAuthorStart: 01-19-2023 End: 50-69-0109Ejqkiv ctrc rmvl insj io lens prosth w/o ecpEYE CATARACT EMULSIFICATION IOL IMPLANT Combined forms of age-related cataract of right eye 01/19/2023 10:26 [facility]tart: 17-62-4106Zueaijhwh vaccinationBON [facility]ENTERStart: 12-01-2022 End: 19-17-8756Qeolse ctrc rmvl insj io lens prosth w/o ecpEYE CATARACT EMULSIFICATION IOL IMPLANT Age-related nuclear cataract of left eye 12/01/2022 9:07 [facility]: 17-32-7006Hrawm panelLipidsFort Belvoir Community Hospitalart: 00-99-8476Lzgflzqvn for malignant neoplasm of breast Breast cancer screenSentara [facility] Hospital: 91-18-3111Zjzytmfcy for malignant neoplasm of lungLow dose CT lung screening &/or counselingSentara [facility] Hospital: 64-42-0922Hwfrxvkj vaccine (1 of 2)Shingles vaccine (1 of 2) [facility]: 93-36-3246Lvzbztdxs for malignant neoplasm of colonSentara Martha Jefferson Hospital: 14-35-5912RUfM/Tdap/Td vaccine (1 - Tdap) DTaP/Tdap/Td vaccine (1 - Tdap)[facility]: 08-29-1978 Hepatitis C screeningHepatitis C screenSentara Martha Jefferson Hospital: 08-29-1974 HIV screeningHIV [facility]: 15-24-5554Panljrjcgh ScreenDepression [facility]: 82-29-6007Hviwwrtvrscs 0- 64 years Vaccine (1 - PCV)Pneumococcal 0-64 years Vaccine (1 - PCV)[facility]: 13-65-6085HLUVR-19 Vaccine (#1)COVID-19 Vaccine (#1)[facility]ALTHOxygen therapy [Minimum Data Set]Initiate Oxygen Therapy Protocol Respiratory Care Routine Daily until discontinued starting 12/01/2022 [facility] on above:Daily until discontinued starting 12/01/2022Oxygen therapy [Minimum Data Set]Initiate Oxygen Therapy Protocol Respiratory Care Routine Daily until discontinued starting 12/01/2022[facility] on above:Daily until discontinued starting 12/01/2022Oxygen therapy [Minimum Data Set]Initiate Oxygen Therapy Protocol Respiratory Care Routine Daily until discontinued starting 01/19/2023[facility] on above:Daily until discontinued starting 01/19/2023Oxygen therapy [Minimum Data Set]Initiate Oxygen Therapy Protocol Respiratory Care Routine Daily until discontinued starting 01/19/2023ON [facility] CENTERComment on above:Daily until discontinued starting 01/19/2023 Payers DatePayer CategoryPayerPolicy [id number] 2..[id number] 2..[id number] 2..[id number] 2..[id number] [id number] 2.0.1.531542.3.579.2.37685-39-5324PnzmLea Regional Medical [id number] Social History DateTypeDetailFacilityStart: 38-82-3916Lthgsxo smoking status NHISSmokes tobacco dailyBALLAD HEALTHHistory of tobacco useCigarette SmokerBALLAD HEALTHStart: 82-21-7527Azeihyjzct smoked current (pack per day) - Reported 1BON [facility]ENTERStart: 44-92-5532Sjccxne use and exposureSmokeless tobacco non-userBALLAD HEALTHStart: 12-01-2022 End: 93-80-0700Qpashxc intakeLifetime non-drinker (finding)[facility]ALTHStart: 09-14-0175Vitlwic SDOH Alcohol Ytjjbmsua5JBJ [facility] Start: 79-28-3702Owt Assigned At BirthNot on [facility] Medical Equipment Procedure CodeEquipment CodeEquipment Original TextEquipment IdentifierDatesLens Intraocular Bcnvx 22+ Diopt 6x12.5 Mm Acryl Envista - [id number] Start: 76-52-0464Ytzo Intraocular Bcnvx 22+ Diopt 6x12.5 Mm Acryl Envista - [id number]: 01-19-2023 History of Present illness Narrative 01-19-2023 Note Date & AsciDrhaPzddpags69-43-1093 History of Present illness Narrative* Scot Velazquez [...] PAT phone call. documented in this encounterBON [facility] instructions 01-19-2023 Note Date & TaowVdbwFdhcguys97-14-7534 Hospital Discharge instructions* Discharge Instructions* Elvira Scherer [...] the healing period. The office number is [phone]. Take surgery bag and all eye drops to Dr. Scherer's office tomorrow at 9:50am. You may resume your normal diet. Start your eye drops tomorrow after your post-op appointment: Ofloxacin/Polytrim one drop to the operated eye 4 times daily Prednisolone one drop to the operated eye 4 times daily documented in this encounterBON [facility] History of Present illness Narrative 12-01-2022 Note Date & LxdzYpdgQaenlqbw80-89-5571 History of Present illness Narrative* Kadie Mckinney [...] 11/21/2022 1:04 PM EDT EKG received from [facility], will have anesthesia review. * Keke Begum [...] operative EKG done. documented in this encounterBON [facility] Discharge instructions 12-01-2022 Note Date & BkjtYlwqTcmhrjsg57-31-8194 Hospital Discharge instructions* Discharge Instructions* Elvira Anabelle [...] the healing period. The office number is [phone]. Take surgery bag and all eye drops to Dr. Scherer's office tomorrow at 8:50am. You may resume your normal diet. 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 DATE CREATED AUTHOR AUTHOR'S ORGANIZ ATION 01/19/2019 [facility] DATE CREATED AUTHOR AUTHOR'S ORGANIZ ATION 04/13/2021 [facility] DATE CREATED AUTHOR AUTHOR'S ORGANIZ ATION 08/26/2021 [facility] DATE CREATED AUTHOR AUTHOR'S ORGANIZ ATION 09/14/2022 [facility] DATE CREATED AUTHOR AUTHOR'S ORGANIZ ATION 01/22/2023 [facility] DATE CREATED AUTHOR AUTHOR'S ORGANIZ ATION 06/04/[address] [facility] Reason for Visit (unrecogniz ed section and content) SpecialtyDiagnoses / ProceduresReferred By ContactReferred To Contact Diagnoses Age-related nuclear cataract of left eye AGE-RELATED NUCLEAR CAT 3+ NS, 1+PSC Procedures [place] XCAPSL CTRC RMVL INSJ IO LENS PROSTH W/O ECP EYE CATARACT EMULSIFICATION IOL IMPLANT Elvira Scherer, DO [address] [place] [address] [facility] [id number] [place] [id number] Referral IDStatus[facility] DateExpiration DateVisits RequestedVisits [id number] / ProceduresReferred By ContactReferred To Contact Diagnoses 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 [H25.811] Procedures [place] XCAPSL CTRC RMVL INSJ IO LENS PROSTH W/O ECP EYE CATARACT EMULSIFICATION IOL IMPLANT Elvira Scherer, DO [address] [place] [address] [facility] [id number] [place] [phone] Referral IDStatusIn[facility] Hospital DateExpiration DateVisits RequestedVisits [id number] Scheduled Active and Recently Administ ered Medications [...] Lee RN) * 1005 (Stopped - Provider: Kadie Mckinney RN) Medication Order11/29/// 0.9 % sodium [...] * 1026 (Restarted - Provider: PILI Colmenares [employer]) * 1051 (Stopped - Provider: Paty Valencia APRN - [employer]) Medication Order/ 0.9 % sodium chloride infusion [...] DateEnd Date Ryan Arevalo MD [address] [place] [address] PCP - GeneralFamily Medicine10/22/18 FOR [...] BE BASED ON THE PRIMARY CLINICAL RECORDS. [facility] [employer] [facility]. provides no warranty or guarantee of the accuracy or completeness of information in this document.
--- NOTE | 2025-04-28 07:55 | MM_ITS ---
Patient Name: LOU MCGUIRE MR#: [id number] : 1960 Exam Date: 04/28/2025 Ordering Doctor: DR RYAN LEMOS . RADIOLOGY REPORT PROCEDURE: MM TOMOSYNTHESIS SCREENING BI COMPARISON: MM TOMOSYNTHESIS SCREENING BI, 04/27/2024. MG MAMM SCREEN 3D GRICEL CAD, 08/15/2022. MG MAMM GRICEL SCRN W CAD DIG, 07/04/2015. INDICATIONS: Screening Calculator Name NCI Breast Cancer Risk Assessment Tool 5 Year Breast Cancer Risk Not Reported. Lifetime Breast Cancer Risk Not Reported. Personal Breast Cancer No Personal Ovarian Cancer No Treatments None Family Cancers None LOCATION: [facility] BREAST COMPOSITION: The breasts are extremely dense, which lowers the sensitivity of mammography. FINDINGS: RIGHT BREAST: No significant suspicious finding. Benign-appearing calcifications are present. LEFT BREAST: No significant suspicious finding. Benign-appearing calcifications are present. DIAGNOSTIC CATEGORY 2--BENIGN FINDING. NO CHANGE FROM COMPARISON. RECOMMENDATIONS: ROUTINE MAMMOGRAM AND CLINICAL EVALUATION IN 12 MONTHS. Dictated by: Jack Giles MD on 04/28/2025 at 12:33 Approved by: Jack Giles MD on 04/28/2025 at 14:35
== END 2025-04-28 07:51 | disposition home or self-care (01) ==
LOC: MAMMO 07:50
PROVIDERS: PCP Family Medicine; Visit Provider Family Medicine
DX: R07.9 Chest pain, unspecified (principal); E28.39 Other primary ovarian failure; Z12.31 Encounter for screening mammogram for malignant neoplasm of breast; M25.511 Pain in right shoulder; M81.0 Age-related osteoporosis without current pathological fracture; M85.88 Other specified disorders of bone density and structure, other site
CPT/HCPCS: 77063; 77067; 77080